=== PATIENT | female | born 1960 | race Caucasian/White ===

== ENCOUNTER → 2017-03-22 10:43 | Outpatient (CLI) | payer MEDICAID, SELFPAY ==
[2017-03-22 12:20] LABS: Anion Gap 6 (5-15); BUN 7 mg/dL (7-18); BUN/Creat Ratio 10.2 RATIO (10-20); Calcium,Total 8.8 mg/dL (8.5-10.1); Chloride 99 mmol/L (98-107); Creatinine, Serum 0.69 mg/dL (0.55-1.02); EST Glomerular Filtration Rate 94 mL/min (>60); Est Glom Filt Rate - Afr Amer 114 mL/min (>60); Glucose 79 mg/dL (70-110); Potassium 3.7 mmol/L (3.5-5.1); Sodium Level 135 mmol/L (136-145)
== END ==
PROVIDERS: Family Provider Family Medicine; PCP Family Medicine
DX: E87.1 Hypo-osmolality and hyponatremia (principal)
CPT/HCPCS: 36415; 80048

== ENCOUNTER → 2017-05-22 09:53 | Outpatient (CLI) | payer MEDICAID, SELFPAY ==
[2017-05-22 10:22] LABS: Erythrocyte Sedimentation Rate 7 mm/hr (0-30)
[2017-05-22 10:25] LABS: Absolute Lymphocyte Count 1.22 X10^3/ul (0.83-4.51); Absolute Neutrophil Count 5.7 X10^3/uL (2.0-7.7); Basophil# 0.03 X10^3/uL; Basophil% 0.4 % (0-1); Eosinophil# 0.01 X10^3/uL; Eosinophils% 0.1 % (0-5); Hematocrit 43.2 % (37-47); Hemoglobin 15.1 g/dl (12.0-15.0); Lymphocyte # 1.22 X10^3/ul (4.0); Lymphocyte % 16.2 % (19-41); Mean Corpuscular Hgb 30.6 pg (27.0-32.0); Mean Corpuscular Volume 87.4 fL (81-99); Mean Platelet Vol. 9.1 fl (6.2-12.0); Monocyte# 0.51 X10^3/uL; Monocyte% 6.8 % (0-10); Neutrophil # 5.72 X10^3/uL (2.7-7.7); Neutrophil % 76.2 % (47-70); Platelet Count 359 K/mm3 (150-450); RBC Distribution Width CV 13.8 % (11.6-14.6); RBC Distribution Width SD 43.8 fl (35.1-43.9); Red Blood Count 4.94 M/mm3 (4.2-5.4); White Blood Count 7.5 K/mm3 (4.4-11.0)
[2017-05-22 10:26] LABS: POSITIVE COUNT NO; POSITIVE DIFFERENTIAL NO; POSITIVE MORPHOLOGY NO
[2017-05-22 10:44] LABS: CRP < 2.90 mg/L (0.0-3.0)
[2017-05-23 10:39] LABS: Vitamin D,25 Hydroxy 20.5 ng/mL (29.95-100.01)
== END ==
PROVIDERS: Family Provider Family Medicine; PCP Family Medicine; Visit Provider Orthopaedic Surgery
DX: S42.351K Displaced comminuted fracture of shaft of humerus, right arm, subsequent encounter for fracture with nonunion (principal); X58.XXXD Exposure to other specified factors, subsequent encounter
CPT/HCPCS: 82306; 82330; 85025; 85652; 86140

== ENCOUNTER → 2017-07-15 13:42 | Outpatient (CLI) | payer MEDICAID, SELFPAY ==
[2017-07-16 10:50] LABS: Vitamin D,25 Hydroxy 41.5 ng/mL (29.95-100.01)
== END ==
PROVIDERS: Family Provider Family Medicine; PCP Family Medicine; Visit Provider Family Medicine
DX: E55.9 Vitamin D deficiency, unspecified (principal)
CPT/HCPCS: 36415; 82306

== ENCOUNTER 2017-08-10 21:00 | Emergency (ER) | payer MEDICAID, SELFPAY ==
[2017-08-10 21:02] VITALS: BP 160/108; PULSE 131; RESP 26; TEMP 37.1; O2SAT 95; BMI 36.2
[2017-08-10 21:08] VITALS: PULSE 126; RESP 22; O2SAT 92
[2017-08-10 21:50] LABS: Hematocrit 32.9 % (37-47); Hemoglobin 11.1 g/dl (12.0-15.0); Mean Corp Hgb Conc 33.7 g/gl (32-36); Mean Corpuscular Hgb 30.1 pg (27.0-32.0); Mean Corpuscular Volume 89.2 fL (81-99); Mean Platelet Vol. 8.4 fl (6.2-12.0); Platelet Count 384 K/mm3 (150-450); RBC Distribution Width CV 13.8 % (11.6-14.6); Red Blood Count 3.69 M/mm3 (4.2-5.4); White Blood Count 5.8 K/mm3 (4.4-11.0)
[2017-08-10 21:56] LABS: Scan Indicated on CBC? Y/N NO
[2017-08-10 22:02] LABS: Prothrombin Time (Protime)PT. 13.5 SECONDS (11.7-14.9)
--- NOTE | 2017-08-10 22:02 | ED.VISSUMM ---
- ER Visit Summary Date of Service: 08/10/17 Chief Complaint: [] Bloody stool History of Present Illness: The patient is a 57 F she stated her stool twice had small amount of blood in it. She has been drinking beers daily she is an alcoholic. She has a PICC line in her left arm is getting vancomycin for an infected right humerus wound from surgery. She had plate and screws done in July 16. He got infected. She does get a Hep-Lock through that at home and so she was asked to come in for further evaluation to rule out GI bleed. She has never had a GI bleed in the past. She has had intermittent loose bowel movements. No previous colonoscopy. No history of hemorrhoids. Physical Examination: Vital signs reviewed General: Well-nourished well-developed she appears intoxicated Head: Normocephalic atraumatic Eyes: Pupils equal round and reactive to light extraocular movements intact ENT: TMs clear no hemotympanum no trauma Neck: Nontender full range of motion Cardiovascular: Regular tachycardia with normal rhythm no murmurs normal S1-S2 Respiratory: No distress clear to auscultation bilaterally chest nontender Abdomen: Soft nontender nondistended normal bowel sounds no masses Stool guaiac: Rectal showed no tenderness. No blood. Guaiac sent. Back: Nontender no CVA tenderness Extremities: Nontender active range of motion ?4 extremities no trauma Skin: Shoulder wound clean dry intact. Mild seepage between 2 of the sutures that is chronic. It is serosanguineous. No evidence of infection. Left PICC clean dry intact. Neuro alert oriented cranial nerves II through XII intact normal strength sensation reflexes Test Results: [] Emergency Department Course and Treatment: [] Patient had one bowel movement in the department that showed no blood. There was some oranges color of her stool. Patient stated that might of been what she thought was blood. Lab work obtained and given fluids. Stool occult sent. Stool occult negative. Lab work shows CBC normal except hemoglobin 11.1. This is down from 15.1. But she had surgery between these lab draws I think it is likely not acute. Chemistries normal except potassium 3.4. INR and PTT are negative. Alcohol is 300. At this time the patient does not have an active bleed. Her guaiac negative. Nursing staff states she had soft stool that was orange in nature which I feel the patient likely metastatic for blood. I feel she can follow-up. She remains tachycardic but I think this is likely secondary to alcohol intoxication and likely dehydration. She will continue to drink fluids and try to refrain from alcohol. Heart rate 120 currently Treatment Plan: [] Disposition: [] Impression: [] Ported blood in stool not observed in the emergency department Alcoholism with acute alcohol intoxication This note was generated with [employer] dictation software. It may contain incorrect words, spelling, and punctuation that were not noted in review of the chart prior to signing ED Disposition - Plan for ED Patient: Chief Complaint: ETOH Intox Referrals: Mansoor Chavarria DO [Primary Care Provider] -
[2017-08-10 22:03] LABS: Partial Thromboplast Time 30.9 Seconds (24.1-36.2)
[2017-08-10 22:06] VITALS: BP 131/112; PULSE 119; RESP 16; O2SAT 97
[2017-08-10] MEDS: 0.9% Normal Saline 1,000 ML 1000 ML IV (22:06)
[2017-08-10 22:09] LABS: Anion Gap 11 (5-15); BUN 9 mg/dL (7-18); BUN/Creat Ratio 12.9 RATIO (10-20); Calcium,Total 8.6 mg/dL (8.5-10.1); Chloride 103 mmol/L (98-107); EST Glomerular Filtration Rate 92 mL/min (>60); Est Glom Filt Rate - Afr Amer 112 mL/min (>60); Estimated Creatinine Clearance 87.27 ml/min; Glucose 119 mg/dL (74-106); Potassium 3.4 mmol/L (3.5-5.1); Sodium Level 138 mmol/L (136-145)
[2017-08-10 22:54] VITALS: BP 140/96; PULSE 126; RESP 16; O2SAT 97
--- NOTE | 2017-08-10 23:10 | ED.DEP ---
ED Disposition - Plan for ED Patient: Disposition: Home or Assisted Living Chief Complaint: ETOH Intox Diagnosis: History of alcohol abuse Instructions: ED Alcohol Intoxication, ED Diarrhea Viral Referrals: Mansoor Chavarria DO [Primary Care Provider] -
[2017-08-10 23:21] VITALS: BP 133/86; PULSE 124; RESP 18; O2SAT 94
== END 2017-08-10 23:34 | disposition home or self-care (01) ==
PROVIDERS: Emergency Provider Emergency Medicine; Family Provider Family Medicine; PCP Family Medicine
DX: R19.5 Other fecal abnormalities (principal); F10.229 Alcohol dependence with intoxication, unspecified; Y90.8 Blood alcohol level of 240 mg/100 ml or more; E86.0 Dehydration; R19.7 Diarrhea, unspecified; K21.9 Gastro-esophageal reflux disease without esophagitis; F41.9 Anxiety disorder, unspecified; E66.9 Obesity, unspecified; Z79.899 Other long term (current) drug therapy
CPT/HCPCS: 80048; 80320; 82274; 85027; 85610; 85730; 96360; 99285; J7030; G0480

== ENCOUNTER 2017-08-11 21:07 | Emergency (ER) | payer MEDICAID, SELFPAY ==
[2017-08-11 21:08] VITALS: BP 145/94; PULSE 134; RESP 18; TEMP 36.4; O2SAT 95; BMI 32.8
--- NOTE | 2017-08-11 23:18 | ED.VISSUMM ---
- ER Visit Summary Date of Service: 08/11/17 Chief Complaint: Need antibiotics History of Present Illness: The patient is a 57 F with a right arm infection. She had a surgical site infection and is under the care of Dr. Ryan Siddiqui in [facility]. She had a PICC line and has been receiving vancomycin at home twice a day. She actually pulled the PICC line out this morning and has not had her morning or evening dose today. Her last dose was yesterday evening. She is here to get her evening dose. She denies any increasing pain, fevers, rash, or any other new symptoms. Physical Examination: Tachycardic at 134 but otherwise vitals unremarkable. Afebrile. Right upper extremity shows postoperative changes. There is some mild serosanguineous drainage but no evidence of bleeding, pus, erythema, or redness. Nontender. Left upper extremity unremarkable. PICC line is absent. Heart tachycardic but regular. Lungs clear. Head and neck atraumatic. Test Results: None performed Emergency Department Course and Treatment: We are unable to replace her PICC line this evening. We will place an IV and administer her evening dose of vancomycin. We did get her the number to call back in the morning. She should call the infusion center to have her doctor arrange for PICC line replacement. We gave her an alternate #2 the PICC line nurse, [place] if she has any issues. I also advised her to call her doctor in the morning to help coordinate her care. Patient's son arrived. He will help coordinate further care at home. Treatment Plan: As above Disposition: Discharged Impression: 1. Vancomycin infusion This note was generated with [employer] dictation software. It may contain incorrect words, spelling, and punctuation that were not noted in review of the chart prior to signing ED Disposition - Plan for ED Patient: Chief Complaint: Meds Only Referrals: Mansoor Chavarria DO [Primary Care Provider] -
[2017-08-11 23:20] VITALS: BP 138/84; PULSE 92; RESP 20; O2SAT 96; BMI 32.8
--- NOTE | 2017-08-11 23:57 | ED.DEP ---
ED Disposition - Plan for ED Patient: Chief Complaint: Meds Only Instructions: Peripherally Inserted Central Catheter (PICC) Referrals: Mansoor Chavarria DO [Primary Care Provider] - Additional Instructions: Follow-up as directed for PICC line replacement
--- NOTE | 2017-08-12 00:13 | ED.RN ---
PT AND PTS SON STATED THEY WOULD NOT LIKE NURSING STAFF TO USE IV PUMP TO ADMINISTER VANCOMYCIN IV. NURSING STAFF EXPLAINED IMPORTANCE AND POLICY ON IV PUMP USE FOR IV VANCOMYCIN, PT AND PTS SON STILL DECLINED IV PUMP USE. PT AND PT SON STATED WE FREE HANG THE VANCOMYCIN AT HOME, IT IS NOT NEEDED, BUT THANK YOU.
== END 2017-08-12 00:27 | disposition home or self-care (01) ==
LOC: ED 23:40
PROVIDERS: Emergency Provider Emergency Medicine; Family Provider Family Medicine; PCP Family Medicine
DX: T81.4XXD Infection following a procedure, subsequent encounter (principal); B99.9 Unspecified infectious disease; R00.0 Tachycardia, unspecified; I10 Essential (primary) hypertension; K21.9 Gastro-esophageal reflux disease without esophagitis; F32.9 Major depressive disorder, single episode, unspecified; F41.9 Anxiety disorder, unspecified; Z79.899 Other long term (current) drug therapy
CPT/HCPCS: 96365; 99282; J7040; A4216

== ENCOUNTER → 2017-11-18 15:24 | Outpatient (CLI) | payer MEDICAID, SELFPAY ==
[2017-11-18 18:01] LABS: Erythrocyte Sedimentation Rate 11 mm/hr (0-30)
[2017-11-18 18:11] LABS: ALB/GLOB Ratio 0.8 RATIO (0.9-2.4); AST(SGOT) 18 U/L (15-37); Alanine Aminotransfer ALT/SGPT 16 U/L (13-56); Albumin, Serum 2.8 g/dL (3.2-5.0); Alkaline Phosphatase 90 U/L (45-117); Anion Gap 8 (5-15); BUN 8 mg/dL (7-18); Calcium,Total 9.2 mg/dL (8.5-10.1); Chloride 101 mmol/L (98-107); Creatinine, Serum 0.73 mg/dL (0.55-1.02); EST Glomerular Filtration Rate 88 mL/min (>60); Est Glom Filt Rate - Afr Amer 106 mL/min (>60); Globulin 3.7 g/dL (2.2-4.2); Glucose 97 mg/dL (74-106); Potassium 3.8 mmol/L (3.5-5.1); Protein, Total 6.5 g/dL (6.4-8.2); Sodium Level 138 mmol/L (136-145)
== END ==
PROVIDERS: Family Provider Family Medicine; PCP Family Medicine
DX: B99.9 Unspecified infectious disease (principal); B95.7 Other staphylococcus as the cause of diseases classified elsewhere
CPT/HCPCS: 36415; 80053; 85652; 86140

== ENCOUNTER → 2018-01-08 09:35 | Outpatient (CLI) | payer MEDICAID, SELFPAY ==
[2018-01-07 10:09] VITALS: BMI 35.5
[2018-01-08 12:21] LABS: Erythrocyte Sedimentation Rate 9 mm/hr (0-30)
[2018-01-08 12:39] LABS: ALB/GLOB Ratio 0.8 RATIO (0.9-2.4); AST(SGOT) 24 U/L (15-37); Alanine Aminotransfer ALT/SGPT 28 U/L (13-56); Albumin, Serum 3.3 g/dL (3.2-5.0); Alkaline Phosphatase 85 U/L (45-117); Anion Gap 11 (5-15); BUN 15 mg/dL (7-18); BUN/Creat Ratio 18.7 RATIO (10-20); CRP 3.88 mg/L (0.0-3.0); Calcium,Total 9.6 mg/dL (8.5-10.1); Chloride 99 mmol/L (98-107); EST Glomerular Filtration Rate 78 mL/min (>60); Est Glom Filt Rate - Afr Amer 95 mL/min (>60); Globulin 3.9 g/dL (2.2-4.2); Glucose 109 mg/dL (74-106); Potassium 4.3 mmol/L (3.5-5.1); Protein, Total 7.2 g/dL (6.4-8.2); Sodium Level 138 mmol/L (136-145)
== END ==
PROVIDERS: Family Provider Family Medicine; PCP Family Medicine
DX: B99.9 Unspecified infectious disease (principal); B95.7 Other staphylococcus as the cause of diseases classified elsewhere
CPT/HCPCS: 36415; 80053; 85652; 86140

== ENCOUNTER 2018-03-29 05:30 | Inpatient (IN) | payer MEDICAID, SELFPAY ==
[2018-01-07 10:09] VITALS: BMI 35.5
[2018-03-29] VITALS (9 sets, daily range): BP systolic 121–172; BP diastolic 80–121; PULSE 82–121; RESP 14–20; TEMP 36.7–37.1; O2SAT 93–99; BMI 35.1
--- NOTE | 2018-03-29 05:48 | ED.VISSUMM ---
- ER Visit Summary Date of Service: 03/29/18 Chief Complaint: Requesting detox for alcoholism History of Present Illness: The patient is a 57 F history of alcohol abuse, hypertension and hypothyroidism. Patient states she has not had a drink for around 12+ hours. She feels like she is going through withdrawal. She is had nausea and vomiting. Diarrhea. She states she feels very anxious. She is hoping to be admitted to [facility] for detox. She has a long history of alcohol abuse. Physical Examination: Middle-aged female. No acute distress. Vital signs are stable with blood pressures elevated 172/121 and her heart rate 121. She does not look septic or toxic. HEENT exam unremarkable other than dry mucous membranes. Neck nontender. Lungs clear to auscultation bilaterally. Heart tachycardic rate about 120 no murmurs. Chest wall nontender. Abdomen soft and nontender. Normal bowel sounds no peritoneal signs. Obese. Extremities she is moving all 4. No deformity. Equal symmetrical performance reporter strength. Dorsi plantar flexion intact. No edema. Back nontender. Skin unremarkable. Neurologically she is awake and alert with no focal motor deficits. Test Results: CBC shows white count 7. Hemoglobin of 15. BMP shows anion gap is 16. Normal BUN and creatinine. Alcohol level equals 76. Emergency Department Course and Treatment: Repeat exam patient is doing well. She is ambulating about the room. She denied discussed treatment options she is very adamant that she would like to be admitted for detox. Treatment Plan: I spoke to the hospitalist and she will admit her to detox. Disposition: Admission Impression: Requesting detox for alcohol abuse History of alcoholism History of hypertension and hypothyroidism This note was generated with [employer] dictation software. It may contain incorrect words, spelling, and punctuation that were not noted in review of the chart prior to signing ED Disposition - Plan for ED Patient: Referrals: Mansoor Chavarria DO [Primary Care Provider] -
[2018-03-29] MEDS: 0.9% Normal Saline 1,000 ML 999 ML IV (05:55)
[2018-03-29 06:14] LABS: Hematocrit 45.4 % (37-47); Hemoglobin 15.2 g/dl (12.0-15.0); Mean Corp Hgb Conc 33.5 g/gl (32-36); Mean Corpuscular Hgb 27.9 pg (27.0-32.0); Mean Corpuscular Volume 83.3 fL (81-99); Mean Platelet Vol. 9.3 fl (6.2-12.0); Platelet Count 317 K/mm3 (150-450); RBC Distribution Width CV 15.8 % (11.6-14.6); RBC Distribution Width SD 47.5 fl (35.1-43.9); Red Blood Count 5.45 M/mm3 (4.2-5.4); Scan Indicated on CBC? Y/N NO
[2018-03-29 07:14] LABS: Anion Gap 16 (5-15); BUN 21 mg/dL (7-18); Chloride 100 mmol/L (98-107); Creatinine, Serum 0.81 mg/dL (0.55-1.02); EST Glomerular Filtration Rate 78 mL/min (>60); Est Glom Filt Rate - Afr Amer 94 mL/min (>60); Estimated Creatinine Clearance 75.42 ml/min; Glucose 120 mg/dL (74-106); Potassium 4.6 mmol/L (3.5-5.1); Sodium Level 137 mmol/L (136-145)
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
[2018-03-29] MEDS: Multivitamins,Therapeutic Tablet 1 TABLET PO (09:22)
[2018-03-29] MEDS: Levothyroxine 100 MCG Tablet 200 MCG PO (09:22)
[2018-03-29] MEDS: chlordiazePOXIDE 25 MG Capsule PO ×3 (09:22→21:20)
[2018-03-29] MEDS: Atenolol 25 MG Tablet PO ×2 (09:22→21:20)
[2018-03-29] MEDS: Ondansetron ODT 4 MG Tablet PO (09:22)
[2018-03-29] MEDS: Thiamine Hydrochloride 100 MG Tablet PO (09:23)
[2018-03-29] MEDS: Folic Acid 1 MG Tablet PO (09:23)
[2018-03-29] MEDS: Venlafaxine XR 150 MG Capsule PO (10:40)
[2018-03-29] MEDS: busPIRone 5 MG Tablet 10 MG PO ×2 (10:40→21:19)
[2018-03-29] MEDS: Loperamide 2 MG Capsule PO (10:45)
[2018-03-29] MEDS: 0.9% NaCl Peripheral Flush Adult/Peds IV (21:20)
[2018-03-30] VITALS (8 sets, daily range): BP systolic 99–138; BP diastolic 69–97; PULSE 68–76; RESP 16–18; TEMP 36.5–36.8; O2SAT 95–97
[2018-03-30] MEDS: chlordiazePOXIDE 25 MG Capsule PO ×3 (03:58→20:09)
[2018-03-30] MEDS: Levothyroxine 100 MCG Tablet 200 MCG PO (05:36)
[2018-03-30] MEDS: Folic Acid 1 MG Tablet PO (08:11)
[2018-03-30] MEDS: Thiamine Hydrochloride 100 MG Tablet PO (08:11)
[2018-03-30] MEDS: Atenolol 25 MG Tablet PO ×2 (08:11→21:14)
[2018-03-30] MEDS: busPIRone 5 MG Tablet 10 MG PO ×2 (08:11→21:14)
[2018-03-30] MEDS: Multivitamins,Therapeutic Tablet 1 TABLET PO (08:11)
[2018-03-30] MEDS: Venlafaxine XR 150 MG Capsule PO (08:11)
--- NOTE | 2018-03-30 11:21 | PCM.PN.HOSP ---
Patient Problems: Active and Suspected Problems (Last Reviewed 03/29/18 @ 13:33 by Judith Ayala DO) Alcohol withdrawal (Acute) Subjective: Doing well, denies any tremors or hallucinations at the moment. She says last time she went through withdrawal was 2 years ago. She states that she is currently in 180 and is getting help for her mental health. She states that she has been struggling because of having a history of cardiac stents that she is survive all the people have in when she was 6 and 19 years old. She also states that when her son was 12 about 13 years ago he accidentally shot and killed a friend of his. Also her son just 6 months ago. She has been dealing with a lot and is currently going to be undergoing dialectical behavioral therapy to help with her mental health. Vitals/I&O's: Vital Signs Temp Pulse Resp BP Pulse Ox 97.9 F 68 18 100/84 H 95 03/30/18 08:13 03/30/18 08:13 03/30/18 08:13 03/30/18 08:13 03/30/18 05:41 Oxygen Delivery Method Room Air Weight: 224 lb 3.362 oz Body Mass Index (BMI) 35.1 Intake and Output for Last 24 Hours 03/28/18 03/29/18 03/30/18 23:59 23:59 23:59 Intake Total 1300 / 1300 950 / 950 Balance 1300 / 1300 950 / 950 General: Alert, Oriented x3, Cooperative, No apparent distress HEENT: Atraumatic, PERRLA, EOMI, Normocephalic Oral: Moist Mucosa Neck: Supple, No JVD, Trachea Midline Lungs: Clear to auscultation, Normal air movement, No rhonchi, No wheeze, No rales Cardiovascular: Regular rate, Regular Rhythm, Normal S1, Normal S2, No murmurs Abdomen: Soft, Non Tender, Non-Distended, No Hepato-splenomegaly Extremities: No edema, Capillary Refill Less than 3 Seconds Skin: No rashes, No breakdown Neurological: Neuro grossly intact, Sensory exam intact to light touch and pain Psych/Mental Status: Normal Affect, Appropriate Current Medications Atenolol (Tenormin (Beta Jayshree)) 25 mg PO BID [facility] Last Admin: 03/30/18 08:11 Dose: 25 mg Bisacodyl (Dulcolax) 10 mg RECTAL DAILY PRN PRN Reason: Constipation Buspirone HCl (Buspar) 10 mg PO BID [facility] Last Admin: 03/30/18 08:11 Dose: 10 mg Chlordiazepoxide (Librium) 50 mg PO Q8H [facility]; Taper Stop: 04/01/18 11:59 Last Admin: 03/30/18 03:58 Dose: 50 mg [facility]ole[facility]ifer[facility] ([facility]) [facility] Last Admin: 03/30/18 08:11 Dose: 2,000 unit Dicyclomine HCl (Bentyl) 20 mg PO Q6H PRN PRN PRN Reason: abdominal discomfort [facility] ([facility]) [facility] Last Admin: 03/30/18 08:11 Dose: 1 mg Ibuprofen (Motrin) 600 mg PO Q8H PRN PRN PRN Reason: Mild-Moderate Pain (1-5/10) Levothyroxine Sodium (Synthroid) 200 mcg PO DAILY@0600 [facility] Last Admin: 03/30/18 05:36 Dose: 200 mcg Loperamide HCl (Imodium) 2 - 4 mg PO UD PRN PRN Reason: LOOSE STOOLS Last Admin: 03/29/18 10:45 Dose: 4 mg Multivitamins (Multivitamin) 1 tablet PO DAILY@0800 [facility] Last Admin: 03/30/18 08:11 Dose: 1 tablet Ondansetron HCl (Zofran Odt) 4 mg PO Q6H PRN PRN PRN Reason: NAUSEA Last Admin: 03/29/18 09:22 Dose: 4 mg Senna (Senokot) 1 tablet PO QHS PRN PRN Reason: Constipation Sodium Chloride () 5 - 15 ml IV UD PRN PRN Reason: SALINE FLUSH Last Admin: 03/29/18 21:20 Dose: 10 ml Thiamine HCl ([facility]itamin B1) [facility] Last Admin: 03/30/18 08:11 Dose: 100 mg Venlafaxine HCl (Effexor Xr) 150 mg PO DAILY [facility] Last Admin: 03/30/18 08:11 Dose: 150 mg Medical Necessity - Tobacco Use Smoking Status: Never smoker Tobacco Use: Non-smoker Assessment/Plan All Active Problems (Last Reviewed 03/29/18 @ 13:33 by Judith Ayala DO) Alcohol withdrawal (Acute) Hyponatremia (Resolved) 1. Acute alcohol withdrawal/alcohol dependence/anxiety/depression -She is not on any medications for seizure disorder which was likely secondary to alcohol withdrawal in the past -We will continue with the [facility] protocol and on discharge will be sent back to 180 -Discussed with her the necessity of improving her mental health prior to being able to stop drinking -She is on Effexor as well as BuSpar, can add Wellbutrin while here or on discharge if she wants it to help. -She will undergo DBT as an outpatient per 1 of her counselors 2. Hypothyroidism -Stable -Continue with home medications DVT: Ambulate Code Visit Inpatient E&M: 31728 Subs Hosp L2
--- NOTE | 2018-03-30 11:24 | PN_ITS ---
Patient Problems: Active and Suspected Problems (Last Reviewed 03/29/18 @ 13:33 by Judith Ayala DO) Alcohol withdrawal (Acute) Subjective: Doing well, denies any tremors or hallucinations at the moment. She says last time she went through withdrawal was 2 years ago. She states that she is currently in 180 and is getting help for her mental health. She states that she has been struggling because of having a history of cardiac stents that she is survive all the people have in when she was 6 and 19 years old. She also states that when her son was 12 about 13 years ago he accidentally shot and killed a friend of his. Also her son just 6 months ago. She has been dealing with a lot and is currently going to be undergoing dialectical behavioral therapy to help with her mental health. Vitals/I&O's: Vital Signs Temp Pulse Resp BP Pulse Ox 97.9 F 68 18 100/84 H 95 03/30/18 08:13 03/30/18 08:13 03/30/18 08:13 03/30/18 08:13 03/30/18 05:41 Oxygen Delivery Method Room Air Weight: 224 lb 3.362 oz Body Mass Index (BMI) 35.1 Intake and Output for Last 24 Hours 03/28/18 03/29/18 03/30/18 23:59 23:59 23:59 Intake Total 1300 / 1300 950 / 950 Balance 1300 / 1300 950 / 950 General: Alert, Oriented x3, Cooperative, No apparent distress HEENT: Atraumatic, PERRLA, EOMI, Normocephalic Oral: Moist Mucosa Neck: Supple, No JVD, Trachea Midline Lungs: Clear to auscultation, Normal air movement, No rhonchi, No wheeze, No rales Cardiovascular: Regular rate, Regular Rhythm, Normal S1, Normal S2, No murmurs Abdomen: Soft, Non Tender, Non-Distended, No Hepato-splenomegaly Extremities: No edema, Capillary Refill Less than 3 Seconds Skin: No rashes, No breakdown Neurological: Neuro grossly intact, Sensory exam intact to light touch and pain Psych/Mental Status: Normal Affect, Appropriate Current Medications Atenolol (Tenormin (Beta Jayshree)) 25 mg PO BID [facility] Last Admin: 03/30/18 08:11 Dose: 25 mg Bisacodyl (Dulcolax) 10 mg RECTAL DAILY PRN PRN Reason: Constipation Buspirone HCl (Buspar) 10 mg PO BID [facility] Last Admin: 03/30/18 08:11 Dose: 10 mg Chlordiazepoxide (Librium) 50 mg PO Q8H [facility]; Taper Stop: 04/01/18 11:59 Last Admin: 03/30/18 03:58 Dose: 50 mg Cholecalciferol (Vitamin D) [facility] Last Admin: 03/30/18 08:11 Dose: 2,000 unit Dicyclomine HCl (Bentyl) 20 mg PO Q6H PRN PRN PRN Reason: abdominal discomfort Folic Acid (Folic Acid) [facility] Last Admin: 03/30/18 08:11 Dose: 1 mg Ibuprofen (Motrin) 600 mg PO Q8H PRN PRN PRN Reason: Mild-Moderate Pain (1-5/10) Levothyroxine Sodium (Synthroid) 200 mcg PO DAILY@0600 [facility] Last Admin: 03/30/18 05:36 Dose: 200 mcg Loperamide HCl (Imodium) 2 - 4 mg PO UD PRN PRN Reason: LOOSE STOOLS Last Admin: 03/29/18 10:45 Dose: 4 mg Multivitamins (Multivitamin) 1 tablet PO DAILY@0800 [facility] Last Admin: 03/30/18 08:11 Dose: 1 tablet Ondansetron HCl (Zofran Odt) 4 mg PO Q6H PRN PRN PRN Reason: NAUSEA Last Admin: 03/29/18 09:22 Dose: 4 mg Senna (Senokot) 1 tablet PO QHS PRN PRN Reason: Constipation Sodium Chloride () 5 - 15 ml IV UD PRN PRN Reason: SALINE FLUSH Last Admin: 03/29/18 21:20 Dose: 10 ml Thiamine HCl (Vitamin B1) [facility] Last Admin: 03/30/18 08:11 Dose: 100 mg Venlafaxine HCl (Effexor Xr) 150 mg PO DAILY [facility] Last Admin: 03/30/18 08:11 Dose: 150 mg Medical Necessity - Tobacco Use Smoking Status: Never smoker Tobacco Use: Non-smoker Assessment/Plan All Active Problems (Last Reviewed 03/29/18 @ 13:33 by Judith Ayala DO) Alcohol withdrawal (Acute) Hyponatremia (Resolved) 1. Acute alcohol withdrawal/alcohol dependence/anxiety/depression -She is not on any medications for seizure disorder which was likely secondary to alcohol withdrawal in the past -We will continue with the [facility] protocol and on discharge will be sent back to [facility] -Discussed with her the necessity of improving her mental health prior to being able to stop drinking -She is on Effexor as well as BuSpar, can add Wellbutrin while here or on discharge if she wants it to help. -She will undergo DBT as an outpatient per 1 of her counselors 2. Hypothyroidism -Stable -Continue with home medications DVT: Ambulate Code Visit Inpatient E&M: 86554 Subs Hosp L2
--- NOTE | 2018-03-30 15:57 | CHAPLAIN ---
Type of Pastoral Visit _x__ Initial Visit ___ Follow-up Visit ___ On-call Visit ___ General Patient Visit ___ Spiritual Assessment ___ Family Conference ___ Bereavement ___ Rapid Response ___ Code Blue ___ Other (describe below) Pastoral Care Referral From _x__ Patient ___ Family ___ Nurse ___ Physician ___ Draw Fire Operator ___ Retail Center Receptionist ___ Other (describe below) Sacrament/Intervention _x__ Active listening ___ Anointing ___ Church _x__ Bereavement ___ Communion _x__ Shara exploration ___ _x__ Life review _x__ Prayer ___ Reconciliation ___ Sacrament of Sick _x__ Supportive presence ___ Wedding ___ Other (describe below) Pastoral Comments patient has spiritual questions about her son and his by overdose; pt is dealing with grief and life after issues; pt is asking for any resources about grief support although she has already explored many avenues
[2018-03-31] MEDS: chlordiazePOXIDE 25 MG Capsule PO ×2 (04:06→12:23)
[2018-03-31 04:10] VITALS: BP 130/85; PULSE 74; RESP 16; TEMP 36.4
[2018-03-31] MEDS: Levothyroxine 100 MCG Tablet 200 MCG PO (05:45)
[2018-03-31 10:00] VITALS: BP 116/80; PULSE 76; RESP 16; TEMP 36.5
[2018-03-31] MEDS: Multivitamins,Therapeutic Tablet 1 TABLET PO (10:49)
[2018-03-31] MEDS: busPIRone 5 MG Tablet 10 MG PO ×2 (10:49→22:01)
[2018-03-31] MEDS: Folic Acid 1 MG Tablet PO (10:49)
[2018-03-31] MEDS: Atenolol 25 MG Tablet PO ×2 (10:50→22:01)
[2018-03-31] MEDS: Venlafaxine XR 150 MG Capsule PO (10:50)
[2018-03-31] MEDS: Thiamine Hydrochloride 100 MG Tablet PO (10:50)
--- NOTE | 2018-03-31 10:53 | PCM.PN.HOSP ---
Patient Problems: Active and Suspected Problems (Last Reviewed 03/29/18 @ 13:33 by Judith Ayala DO) Alcohol withdrawal (Acute) Subjective: Doing well, no tremors or anxiety. Vitals/I&O's: Vital Signs Temp Pulse Resp BP Pulse Ox 97.6 F L 74 16 130/85 H 96 03/31/18 04:10 03/31/18 04:10 03/31/18 04:10 03/31/18 04:10 03/30/18 20:15 Oxygen Delivery Method Room Air Weight: 224 lb 3.362 oz Body Mass Index (BMI) 35.1 Intake and Output for Last 24 Hours 03/29/18 03/30/18 03/31/18 23:59 23:59 23:59 Intake Total 1300 / 1300 3650 / 3650 900 / 900 Balance 1300 / 1300 3650 / 3650 900 / 900 General: Alert, Oriented x3, Cooperative, No apparent distress HEENT: Atraumatic, PERRLA, EOMI, Normocephalic Oral: Moist Mucosa Neck: Supple, No JVD, Trachea Midline Lungs: Clear to auscultation, Normal air movement, No rhonchi, No wheeze, No rales Cardiovascular: Regular rate, Regular Rhythm, Normal S1, Normal S2, No murmurs Abdomen: Soft, Non Tender, Non-Distended, No Hepato-splenomegaly Extremities: No edema, Capillary Refill Less than 3 Seconds Skin: No rashes, No breakdown Neurological: Neuro grossly intact, Sensory exam intact to light touch and pain Psych/Mental Status: Normal Affect, Appropriate Current Medications Atenolol (Tenormin (Beta Jayshree)) 25 mg PO BID [facility] Last Admin: 03/31/18 10:50 Dose: 25 mg Bisacodyl (Dulcolax) 10 mg RECTAL DAILY PRN PRN Reason: Constipation Buspirone HCl (Buspar) 10 mg PO BID [facility] Last Admin: 03/31/18 10:49 Dose: 10 mg Chlordiazepoxide (Librium) 50 mg PO Q8H [facility]; Taper Stop: 04/01/18 11:59 Last Admin: 03/31/18 04:06 Dose: 50 mg [facility]olecalcifer[facility] ([facility]itamin [facility]) [facility] Last Admin: 03/31/18 10:49 Dose: 2,000 unit Dicyclomine HCl (Bentyl) 20 mg PO Q6H PRN PRN PRN Reason: abdominal discomfort Folic Acid (F[facility] Acid) [facility] Last Admin: 03/31/18 10:49 Dose: 1 mg Ibuprofen (Motrin) 600 mg PO Q8H PRN PRN PRN Reason: Mild-Moderate Pain (1-5/10) Levothyroxine Sodium (Synthroid) 200 mcg PO DAILY@0600 [facility] Last Admin: 03/31/18 05:45 Dose: 200 mcg Loperamide HCl (Imodium) 2 - 4 mg PO UD PRN PRN Reason: LOOSE STOOLS Last Admin: 03/29/18 10:45 Dose: 4 mg Multivitamins (Multivitamin) 1 tablet PO DAILY@0800 [facility] Last Admin: 03/31/18 10:49 Dose: 1 tablet Non-Formulary Medication (Levothyroxine Sodium [Synthroid]) 200 mcg PO QDAY [facility] Ondansetron HCl (Zofran Odt) 4 mg PO Q6H PRN PRN PRN Reason: NAUSEA Last Admin: 03/29/18 09:22 Dose: 4 mg Senna (Senokot) 1 tablet PO QHS PRN PRN Reason: Constipation Sodium Chloride () 5 - 15 ml IV UD PRN PRN Reason: SALINE FLUSH Last Admin: 03/29/18 21:20 Dose: 10 ml Thiamine HCl (Vitamin B1) [facility] Last Admin: 03/31/18 10:50 Dose: 100 mg Venlafaxine HCl (Effexor Xr) 150 mg PO DAILY [facility] Last Admin: 03/31/18 10:50 Dose: 150 mg Medical Necessity - Tobacco Use Smoking Status: Never smoker Tobacco Use: Non-smoker Assessment/Plan All Active Problems (Last Reviewed 03/29/18 @ 13:33 by Judith Ayala DO) Alcohol withdrawal (Acute) Hyponatremia (Resolved) 1. Acute alcohol withdrawal/alcohol dependence/anxiety/depression -She is not on any medications for seizure disorder which was likely secondary to alcohol withdrawal in the past -We will continue with the [facility] protocol and on discharge will be sent back to 180 -Discussed with her the necessity of improving her mental health prior to being able to stop drinking -She is on Effexor as well as BuSpar, will start her on Wellbutrin 75 mg twice daily to help with her feelings of anxiety and depression. -She will undergo DBT as an outpatient per 1 of her counselors 2. Hypothyroidism -Stable -Continue with home medications DVT: Ambulate Code Visit Inpatient E&M: 26569 Subs Hosp L2
--- NOTE | 2018-03-31 10:57 | PN_ITS ---
Patient Problems: Active and Suspected Problems (Last Reviewed 03/29/18 @ 13:33 by Judith Ayala DO) Alcohol withdrawal (Acute) Subjective: Doing well, no tremors or anxiety. Vitals/I&O's: Vital Signs Temp Pulse Resp BP Pulse Ox 97.6 F L 74 16 130/85 H 96 03/31/18 04:10 03/31/18 04:10 03/31/18 04:10 03/31/18 04:10 03/30/18 20:15 Oxygen Delivery Method Room Air Weight: 224 lb 3.362 oz Body Mass Index (BMI) 35.1 Intake and Output for Last 24 Hours 03/29/18 03/30/18 03/31/18 23:59 23:59 23:59 Intake Total 1300 / 1300 3650 / 3650 900 / 900 Balance 1300 / 1300 3650 / 3650 900 / 900 General: Alert, Oriented x3, Cooperative, No apparent distress HEENT: Atraumatic, PERRLA, EOMI, Normocephalic Oral: Moist Mucosa Neck: Supple, No JVD, Trachea Midline Lungs: Clear to auscultation, Normal air movement, No rhonchi, No wheeze, No rales Cardiovascular: Regular rate, Regular Rhythm, Normal S1, Normal S2, No murmurs Abdomen: Soft, Non Tender, Non-Distended, No Hepato-splenomegaly Extremities: No edema, Capillary Refill Less than 3 Seconds Skin: No rashes, No breakdown Neurological: Neuro grossly intact, Sensory exam intact to light touch and pain Psych/Mental Status: Normal Affect, Appropriate Current Medications Atenolol (Tenormin (Beta Jayshree)) 25 mg PO BID [facility] Last Admin: 03/31/18 10:50 Dose: 25 mg Bisacodyl (Dulcolax) 10 mg RECTAL DAILY PRN PRN Reason: Constipation Buspirone HCl (Buspar) 10 mg PO BID [facility] Last Admin: 03/31/18 10:49 Dose: 10 mg Chlordiazepoxide (Librium) 50 mg PO Q8H [facility]; Taper Stop: 04/01/18 11:59 Last Admin: 03/31/18 04:06 Dose: 50 mg Cholecalciferol (Vitamin D) [facility] Last Admin: 03/31/18 10:49 Dose: 2,000 unit Dicyclomine HCl (Bentyl) 20 mg PO Q6H PRN PRN PRN Reason: abdominal discomfort Folic Acid (Folic Acid) [facility] Last Admin: 03/31/18 10:49 Dose: 1 mg Ibuprofen (Motrin) 600 mg PO Q8H PRN PRN PRN Reason: Mild-Moderate Pain (1-5/10) Levothyroxine Sodium (Synthroid) 200 mcg PO DAILY@0600 [facility] Last Admin: 03/31/18 05:45 Dose: 200 mcg Loperamide HCl (Imodium) 2 - 4 mg PO UD PRN PRN Reason: LOOSE STOOLS Last Admin: 03/29/18 10:45 Dose: 4 mg Multivitamins (Multivitamin) 1 tablet PO DAILY@0800 [facility] Last Admin: 03/31/18 10:49 Dose: 1 tablet Non-Formulary Medication (Levothyroxine Sodium [Synthroid]) 200 mcg PO QDAY [facility] Ondansetron HCl (Zofran Odt) 4 mg PO Q6H PRN PRN PRN Reason: NAUSEA Last Admin: 03/29/18 09:22 Dose: 4 mg Senna (Senokot) 1 tablet PO QHS PRN PRN Reason: Constipation Sodium Chloride () 5 - 15 ml IV UD PRN PRN Reason: SALINE FLUSH Last Admin: 03/29/18 21:20 Dose: 10 ml Thiamine HCl (Vitamin B1) [facility] Last Admin: 03/31/18 10:50 Dose: 100 mg Venlafaxine HCl (Effexor Xr) 150 mg PO DAILY [facility] Last Admin: 03/31/18 10:50 Dose: 150 mg Medical Necessity - Tobacco Use Smoking Status: Never smoker Tobacco Use: Non-smoker Assessment/Plan All Active Problems (Last Reviewed 03/29/18 @ 13:33 by Judith Ayala DO) Alcohol withdrawal (Acute) Hyponatremia (Resolved) 1. Acute alcohol withdrawal/alcohol dependence/anxiety/depression -She is not on any medications for seizure disorder which was likely secondary to alcohol withdrawal in the past -We will continue with the [facility] protocol and on discharge will be sent back to 180 -Discussed with her the necessity of improving her mental health prior to being able to stop drinking -She is on Effexor as well as BuSpar, will start her on Wellbutrin 75 mg twice daily to help with her feelings of anxiety and depression. -She will undergo DBT as an outpatient per 1 of her counselors 2. Hypothyroidism -Stable -Continue with home medications DVT: Ambulate Code Visit Inpatient E&M: 42483 Subs Hosp L2
[2018-03-31] MEDS: buPROPion 75 MG Tablet PO ×2 (13:47→22:01)
[2018-03-31 14:00] VITALS: BP 118/84; PULSE 73; RESP 16; TEMP 37
[2018-03-31 18:00] VITALS: BP 122/85; PULSE 74; RESP 16; TEMP 36.7; O2SAT 96
[2018-03-31 21:55] VITALS: BP 144/95; PULSE 89; RESP 16; TEMP 36.7
[2018-03-31] MEDS: 0.9% NaCl Peripheral Flush Adult/Peds IV (22:01)
[2018-04-01] MEDS: chlordiazePOXIDE 25 MG Capsule PO (00:09)
[2018-04-01 06:05] VITALS: BP 124/81; PULSE 80; RESP 16; TEMP 36.6
[2018-04-01] MEDS: Levothyroxine 100 MCG Tablet 200 MCG PO (06:08)
[2018-04-01] MEDS: Multivitamins,Therapeutic Tablet 1 TABLET PO (08:06)
[2018-04-01] MEDS: Thiamine Hydrochloride 100 MG Tablet PO (08:06)
[2018-04-01] MEDS: Folic Acid 1 MG Tablet PO (08:06)
[2018-04-01] MEDS: busPIRone 5 MG Tablet 10 MG PO (08:07)
[2018-04-01] MEDS: Venlafaxine XR 150 MG Capsule PO (08:07)
[2018-04-01] MEDS: buPROPion 75 MG Tablet PO (08:08)
[2018-04-01] MEDS: Atenolol 25 MG Tablet PO (08:08)
--- NOTE | 2018-04-01 09:30 | DCINST_ITS ---
- Discharge Diagnoses Current Active Problems: Current Active and Chronic Problems (Last Reviewed 03/29/18 @ 13:33 by Judith Ayala DO) Alcohol withdrawal (Acute) You will use the following diet at home:: No restrictions, Regular Your food should be the consistency of: Regular Your liquids should be the consistency of: Regular/Thin Discharge Activity: Return to Normal Activity Call your doctor if you observe: Fever of 101 or Higher, Shortness of breath, Dizziness, Fainting spells, Increased palpitations (irregular heartbeat) Allergies/Adverse Reactions: Allergies Penicillins Allergy (Verified 08/11/17 21:10) Hives Medications to take at Discharge busPIRone [Buspar] 10 mg PO BID 06/07/16 multivitamin capsule 1 cap PO QAM 06/12/17 Atenolol 25 mg PO BID 03/29/18 Cholecalciferol (Vitamin D3) [Vitamin D3] 2,000 unit PO DAILY 03/29/18 Doxycycline [Vibramycin] 100 mg PO DAILY 03/29/18 Levothyroxine Sodium [Synthroid] 200 mcg PO QDAY 03/29/18 Venlafaxine XR [Effexor Xr] 150 mg PO DAILY 03/29/18 buPROPion tablets [Wellbutrin tablets] 75 mg PO BID #60 tablet 04/01/18 The following prescriptions were given: buPROPion tablets [Wellbutrin tablets] 75 mg PO BID #60 tablet Primary Care Physician: Mansoor Chavarria DO [Primary Care Provider] - Please follow up with your Primary Care Physician in: 3-5 days Test Results: Test results from this visit will be discussed in further detail at your follow- up appointment, if applicable.
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
[2018-04-01 10:00] VITALS: BP 116/80; PULSE 75; RESP 16; TEMP 36.6
--- NOTE | 2018-04-01 13:23 | CHAPLAIN ---
Type of Pastoral Visit ___ Initial Visit _x__ Follow-up Visit ___ On-call Visit ___ General Patient Visit ___ Spiritual Assessment ___ Family Conference ___ Bereavement ___ Rapid Response ___ Code Blue ___ Other (describe below) Pastoral Care Referral From _x__ Patient ___ Family ___ Nurse ___ Physician ___ Camp Assistant ___ Production Material Coordinator ___ Other (describe below) Sacrament/Intervention _x__ Active listening ___ Anointing ___ Latter-Day ___ Bereavement ___ Communion _x__ Shara exploration ___ _x__ Life review _x__ Prayer ___ Reconciliation ___ Sacrament of Sick _x__ Supportive presence ___ Wedding ___ Other (describe below) Pastoral Comments
[2018-04-01 14:00] VITALS: BP 115/76; PULSE 76; RESP 16; TEMP 36.4
== END 2018-04-01 14:55 | disposition home or self-care (01) | DRG 775 ==
LOC: ED 05:49 → MS3 07:58
PROVIDERS: Admitting Provider Internal Medicine; Emergency Provider Emergency Medicine; Family Provider Family Medicine; PCP Family Medicine; Visit Provider Family Medicine
DX: F10.239 Alcohol dependence with withdrawal, unspecified (principal); E03.9 Hypothyroidism, unspecified; E55.9 Vitamin D deficiency, unspecified; K21.9 Gastro-esophageal reflux disease without esophagitis; E66.9 Obesity, unspecified; Z68.35 Body mass index [BMI] 35.0-35.9, adult; F41.9 Anxiety disorder, unspecified; I10 Essential (primary) hypertension; F32.9 Major depressive disorder, single episode, unspecified; G40.909 Epilepsy, unspecified, not intractable, without status epilepticus; Y90.3 Blood alcohol level of 60-79 mg/100 ml
CPT/HCPCS: 80048; 80320; 85027; 99282; J7030; A4216; G0480

== ENCOUNTER 2018-06-26 06:55 | Day surgery (SDC) | payer MEDICAID, SELFPAY ==
[2018-05-07 13:05] VITALS: BMI 35.1
[2018-06-26 07:17] VITALS: BP 117/94; PULSE 67; RESP 16; TEMP 37.3; O2SAT 100; BMI 36.6
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
--- NOTE | 2018-06-26 08:39 | OP.ENDO_ITS ---
06/26/2018 Mansoor Chavarria Re : Colonoscopy procedure for Marva Fu Dear Dr. Chavarria This procedure was performed on Tuesday, June 26, 2018. My impressions and recommendations are as follows: Impressions : - The entire examined colon is normal on direct and retroflexion views. - No specimens collected. Recommendations : - Discharge patient to home. - Resume previous diet. - Continue present medications. - Repeat colonoscopy in 10 years for screening purposes. My findings are described in the full procedure note, which is enclosed. If I can be of further assistance, please feel free to contact me at Doctor phone number(s): , Work: . Sincerely, Montrell Marrufo MD 06/26/2018 8:38:45 AM This report has been signed electronically.
[2018-06-26 08:40] VITALS: BP 117/94; BP 97/68; PULSE 79; RESP 16; TEMP 36.6; O2SAT 94
[2018-06-26 08:45] VITALS: BP 105/71; BP 117/94; PULSE 76; RESP 16; O2SAT 93
[2018-06-26 08:50] VITALS: BP 105/81; BP 117/94; PULSE 76; RESP 16; O2SAT 98
[2018-06-26 08:55] VITALS: BP 117/94; PULSE 72; RESP 18; TEMP 37.1; O2SAT 96
[2018-06-26 09:17] VITALS: BP 117/94
== END 2018-06-26 09:22 | disposition home or self-care (01) ==
LOC: EN 06:56 → AC 06:57
PROVIDERS: Family Provider Family Medicine; PCP Family Medicine; Referring Provider Surgery; Visit Provider Surgery
PROC: 0DJD8ZZ Inspection of Lower Intestinal Tract, Via Natural or Artificial Opening Endoscopic (ICD-10-PCS; CPT 45378; principal; 2018-06-26 07:55)
DX: Z12.11 Encounter for screening for malignant neoplasm of colon (principal); I10 Essential (primary) hypertension; E07.9 Disorder of thyroid, unspecified; F32.9 Major depressive disorder, single episode, unspecified; F41.9 Anxiety disorder, unspecified; Z79.899 Other long term (current) drug therapy; Z78.0 Asymptomatic menopausal state; Z90.710 Acquired absence of both cervix and uterus
CPT/HCPCS: 45378; J7120

== ENCOUNTER → 2018-07-17 08:59 | Outpatient (CLI) | payer MEDICAID, SELFPAY ==
[2018-05-07 13:05] VITALS: BMI 35.1
[2018-06-26 07:17] VITALS: BMI 36.6
--- NOTE | 2018-07-17 09:54 | BI_ITS ---
MAMMOGRAPHY - BILATERAL SCREENING REASON FOR EXAM: Female, 58 years old. Routine annual screening examination. PERTINENT HISTORY: Aunt with breast cancer. Remote right excisional breast biopsy. TECHNIQUE: Digital bilateral breast mary (3D mammographic acquisition) in the CC and MLO projections. 2-D mediolateral oblique (MLO) and craniocaudad (CC) views of both breasts were obtained. CAD: Full Field Digital Mammography with Computer Added Detection was performed. COMPARISON: Comparison is made with prior study dated June 06, 2015 and May 25, 2014. FINDINGS: Breast Composition: There are scattered areas of fibroglandular density. There are no dominant masses or suspicious calcifications. Stable calcified linear density in the retroareolar region of the right breast. No other significant abnormalities are identified. There has been no significant change since the prior study. BI/SCREEN MAMM (CAD) W/MARY BILAT IMPRESSION: Stable bilateral screening mammogram. Yearly follow-up mammogram recommended. (A) ASSESSMENT CATEGORY: BIRADS Category 2: Benign. A letter regarding these results will be sent to the patient by the facility within 30 days. Approximately 10% of breast cancers are not detected by mammography. A normal mammogram should not delay biopsy of a clinically suspicious abnormality. [id number] Electronically Signed: Edilberto Wright, at 11:04 EDT , Service support ,
== END ==
PROVIDERS: Family Provider Family Medicine; PCP Family Medicine; Referring Provider Family Medicine; Visit Provider Family Medicine
DX: Z12.31 Encounter for screening mammogram for malignant neoplasm of breast (principal); Z80.3 Family history of malignant neoplasm of breast
CPT/HCPCS: 77063; 77067

== ENCOUNTER 2018-12-28 09:00 | Outpatient (RCR) | payer MEDICAID, SELFPAY ==
[2018-12-23 14:23] VITALS: BMI 39.7
--- NOTE | 2018-12-28 09:06 | BH.SGPN.GN ---
Behaviors/Verbalizations/Mental Status: [Client alert and oriented, casual dress, hygiene tended to. Eye contact good. Motor activity appropriate. Speech within normal limits. Affect congruent, mood depressed. Thoughts linear, logical, no signs of hallucinations or delusions. Reviewed client?s symptom tracker, no signs of suicidal ideation, plan, or intent as of today.?] Client Response/Progress/Benefit: [Pt receptive of session, actively listening throughout. Pt appearing nervous, as this was her first day in IOP treatment and she was still adjusting to group environment. She did well to identify current mental health wins and indicated these were taking the step to recognize her current means of coping are negatively impacting her mental health and took the initiative to ask for help. Additional win described as making it ?5 days without using old habits?. She appeared to benefit from supportive and structured environment. Pt identified current stressors as being unemployed and not having a strong foundation of coping mechanisms. She did well to reframe her thoughts and noted that she is looking forward to begin ?feeling feelings again? and learning how to better cope. Pt recommended continued IOP treatment to maintain safety, reduce mental health symptoms, and promote healthy copping behaviors.] Narrative Note: []
--- NOTE | 2018-12-28 10:20 | BH.SGPN.GN ---
Behaviors/Verbalizations/Mental Status: []Client alert and oriented, neatly dressed and groomed. Eye contact good. Motor activity appropriate. Speech within normal limits. Affect flat-tearful at times, mood depressed. Thoughts linear, logical, no signs of hallucinations or delusions. Client Response/Progress/Benefit: []Client was an active participant in group discussion and activity. Attentive during psychoeducation and commenting on the quote. Client shared people justify why they do not need change. Client stated change came for her once she realized ?I could if I keep doing this.? Worked with the group to identify benefits to making changes in our lives which included: improving one?s mental health, increasing confidence, breaking out of one?s comfort zone, and reducing unhealthy coping skills. Group then identified barriers to change or what keeps us from making changes which included: it is easier to not change, lack of trust, lack of resources, lack of courage to change, lack follow through, negative thinking, and fear. Client participated along with group in activity where they identified and discussed the emotions related to change. Client was attentive during psychoeducation on the change process. Benefited from increased awareness and understating of emotions, benefits, and barriers related to change. Client?s first day in IOP. Will continue IOP tx to prevent decompensation, promote sobriety, and improve mood stability. Narrative Note: []
--- NOTE | 2018-12-28 11:20 | BH.SGPN.GN ---
Behaviors/Verbalizations/Mental Status: []Client alert and oriented, casually dressed and groomed. Eye contact good. Motor activity appropriate. Speech within normal limits. Affect congruent, mood dysthymic. Thoughts linear, logical, no signs of hallucinations or delusions. Client Response/Progress/Benefit: []Client engaged participant AEB pt listening attentively to others and engaging in group activity. Client participated in the activity and processed emotions and barriers associated with making change. Client appeared to connect with discussion on weighing the pros and cons associated with change and benefited from learning to do so through use of decisional balance sheet. Identified she is currently in action stage of change. Pt stated she is in action stage because she is going to AA meetings to help her maintain sobriety. Progress noted in ability to identify which stage of change she is currently in. Recommended continued IOP to maintain sobriety, increase utilization healthy coping skills and prevent decompensation. Narrative Note: []
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
--- NOTE | 2018-12-30 12:49 | BH.DR.ITP ---
Initial Treatment Plan - Patient Information Visit Information: ADMISSION DATE: EXPECTED LOS: 4-6 weeks - Problems/Symptoms Problem #1:: Depression Symptom:: sadness, rumination, decreased ability to function at work and home
--- NOTE | 2018-12-30 13:21 | BH.MDN_ITS ---
Multi-Disciplinary Note - Note 30-min Individual Time Started:: 11:48 Date: 12/30/18 Purpose of session/treatment goals addressed:: Purpose of session was to elicit pt's current symptoms and stressors. Session focused on identifying treatment goals for IOP level of care. Eye Contact:: Good Motor Activity:: Appropriate Appearance:: Casual Speech:: Appropriate Mood:: Anxious, Dysthymic Affect:: Constricted Thoughts:: Linear, Logical, No evidence of hallucinations/delusions noted Staff Interventions:: Therapist used open ended questions to elicit pt's current symptoms and stressors. Therapist worked collaboratively with pt to identify treatment goals while in IOP. Therapist assisted pt with identifying healthy coping skills that pt can utilize to help manage emotions and prevent pt from using alcohol as her coping skill. Therapist provided support by using active listening and validating emotions. Client Response:: Pt reported yesterday she attended two AA meetings which helps her feel accepted, supported, and validated. pt stated she was helpful to her dad yesterday by taking her mom to an appointment. Pt reported it makes her feel positive when she can help others out because she reminds herself if she had been drinking she couldn't have helped. Pt stated she also met with her grief counselor yesterday and found out her counselor is retiring so she will be getting a new grief counselor. Pt reported another change is her outpatient counselor is going on maternity leave so she will be meeting with a new counselor for the next three months starting next week. Pt reported tomorrow she has a meeting with her sponser and plans to attend two AA meetings and a [facility] meeting. Pt reported while she is in IOP she would like to work on being able to identify feelings, identify what she wants out of life, and stop hiding from her emotions. Pt reported she wants to learn skills to help manage her depression and anxiety, which pt stated she believes will help her maintain sobriety. Pt identified healthy coping skills she wants to start utilizing include: playing the thought through, music, journaling, allowing self to grieve, and attending AA meetings. Risks/Concerns:: Pt denies current suicidal ideation, plan or intention to date. Progress Toward Goals/Plan:: Pt progressing with utilizing supports by attending AA meetings. Pt reports she struggles with maintaining sobriety on the weekends. Plan is to meet this Friday to create a weekend relapse prevention plan. Pt to continue IOP to increase utilization of healthy coping, maintain sobriety, and p revent decompensation. Time Stopped:: 12:15
--- NOTE | 2019-01-01 09:05 | BH.SGPN.GN ---
Behaviors/Verbalizations/Mental Status: []Client alert and oriented, casually dressed and groomed. Eye contact good. Motor activity appropriate. Speech within normal limits. Affect constricted, mood dysthymic. Thoughts linear, logical, no signs of hallucinations or delusions. Reviewed client?s symptom tracker, no risk for suicidal ideation, plan, or intent as of 01/01/19. Client Response/Progress/Benefit: []Client responded well to session, connecting with peers and receptive to encouragement. Client reports feeling ?hopeful? today and stated that overall her week has been ?pretty up and down.? Client reported being in IOP group gives client hope, but it is also hard being in mental health treatment because this week client had to ?rehash past things I?ve been stuffing.? Client reported she is realizing the benefits of addressing these things, even though it is painful. Client identified her mental health wins today which included: meeting with her sponsor, making it to group today, and reading positive emails from spiritism. Client reported weekends are always hard for client which brings client stress. However, client shared she plans to make a weekend plan with her individual counselor today to prevent relapse. Appeared to benefit from connecting with peers and reflecting on her ability to make positives by overcoming negatives this week. Will continue IOP tx to prevent relapse and decompensation of depressive symptoms. Narrative Note: []
--- NOTE | 2019-01-01 10:22 | BH.SGPN.GN ---
Behaviors/Verbalizations/Mental Status: [Client alert and oriented, casually dressed and appropriately groomed. Eye contact good. Motor activity appropriate. Speech within normal limits. Affect congruent, mood anxious and dysthymic. Thoughts linear, logical, no signs of hallucinations or delusions] Client Response/Progress/Benefit: [Client was an active participant in group activity and discussion. Pt providing some insight and nodding as others shared throughout. She connected with the topic and worked with group to identify common internal barriers that keep people stuck. Barriers discussed included; denial, lack of willingness to address personal barriers, guilt, and turning to unhealthy coping skills. Client connected with discussion regarding how these barriers can impact relationships and mental health. Shared current struggles with guilt have led to self-deprecating thoughts and shame. Client completed self-reflection activity and identified current reality as feeling as though she is walking through the sanchez lost and searching for the way out. Indicated that her past and negative thoughts are trying to pull her back. Client shared a realistic, desired reality would be reaching the edge of the sanchez and entering the clearing where her supports and healthy means of coping are. Client benefited from group as client was able to identify current mental health state and barriers that are impacting progress. Progress noted in ability to discuss how internal barriers have kept her stuck and impacted ability to quit unhealthy coping. Will continue IOP to increase consistent skill application, improve emotion regulation, and prevent decompensation.] Narrative Note: []
--- NOTE | 2019-01-01 11:22 | BH.SGPN.GN ---
Behaviors/Verbalizations/Mental Status: []Eye contact is good. Motor activity is appropriate. Appearance is casual. Speech is Appropriate. Mood is anxious. Affect is congruent. Thoughts are linear and logical. No evidence of psychosis. Client Response/Progress/Benefit: []Pt was an active participant in group discussion and activity. Able to identify low self-esteem, cognitive distortions, and complacency as obstacles which are preventing her from achieving her desired reality. Active during activity. Pt along with peers identified various obstacles during the activity and developed 3 strategies to overcome those obstacles to wellness and desired reality. Group wrote down the strategies and added them to their program binder. Benefited from group by identifying obstacles and solutions to desired reality. Narrative Note: []
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
--- NOTE | 2019-01-08 10:18 | BH.SGPN.GN ---
Behaviors/Verbalizations/Mental Status: [Client alert and oriented, casually dressed and groomed. Eye contact fair to good. Motor activity appropriate. Speech within normal limits. Affect congruent, mood depressed. Thoughts linear, logical, no signs of hallucinations or delusions. ] Client Response/Progress/Benefit: [Client active participant AEB active engagement in group activity, taking notes, and listening attentively to peers. Client did well to challenge herself to provide personal examples of resilience during discussion. She shared that the definition of resilience includes being open to asking for help. Pt went on to reflect that not asking for help in the past has prevented her from maintaining sobriety and negatively impacted resilience. Client attentive during discussion on connections between activity and barriers/supports to development of a resilient lifestyle. Client agreed with peers that one can learn to become more resilient throughout life. Client benefitted from brainstorming benefits of being resilient which included: increased self-confidence, increased ability to find different solutions to setbacks, and improved hope for the future. Client is progressing with increased willingness to honestly and openly discuss potential barriers to progress and communicate with supports outside treatment environment. Recommended continued IOP tx to promote healthy change behaviors, improve use of healthy coping skills and depression management, as well as maintain gains.] Narrative Note: []
--- NOTE | 2019-01-08 11:20 | BH.SGPN.GN ---
Behaviors/Verbalizations/Mental Status: []Client alert and oriented, casually dressed and groomed. Eye contact good. Motor activity appropriate. Speech within normal limits. Affect congruent to topic being discussed, mood dysthymic. Thoughts linear, logical, no signs of hallucinations or delusions. Client Response/Progress/Benefit: []Client engaged participant as evidenced by client providing input throughout discussion and listening attentively to peers. Client worked cooperatively with peers to identify how each resiliency component can help increase personal resiliency. Client reported she wants to work on the resiliency component of making connections. Client stated she will work on increasing social connections by attending AA meetings, contacting friends, and scheduling activities with friends. Client appeared to benefit from identifying goal to improve personal resilience factors. Client to continue IOP to increase utilization of healthy coping skills, continue to challenge and challenge distorted thoughtsand prevent decompensation. Narrative Note: []
--- NOTE | 2019-01-08 20:51 | BH.MDN ---
Multi-Disciplinary Note - Note 30-min Individual Time Started:: 09:34 Date: 01/08/19 Purpose of session/treatment goals addressed:: Purpose of session was to assess pt's current symptoms and stressors. Processed how rest of yesterday went after last individual session. Created weekend relapse prevention plan. Eye Contact:: Good Motor Activity:: Appropriate Appearance:: Casual Speech:: Appropriate Mood:: Anxious, Dysthymic Affect:: Congruent Thoughts:: Linear, Logical, No evidence of hallucinations/delusions noted Staff Interventions:: Therapist utilized open ended questions to elicit pt's current symptoms and stressors. Therapist worked with pt to create a relapse prevention plan for the weekend. Assisted pt with identifying healthy coping skills to rehearse daily. Provided support by using active listening and validating emotions. Client Response:: Pt reported after she left counseling appointment yesterday she felt validated and relieved that she had been honest about her relapse. Pt stated she found out last night that two people she knows got into a fatal car accident and their calling hours are this weekend. Pt reported her best friend's brother recently and his calling hours are this weekend as well. Pt stated she wants to attend her best friend's brothers calling hours because wants to be supportive to her friend. Pt recognized calling hours could trigger her own grief of her son's . Pt able to problem solve that she can either ask her dad to go with her or make sure he picks her up from the calling hours. Pt stated she plans to go to two AA meetings this weekend for support. Pt shared she will focus on journaling and listening to uplifting music. Pt agreeable to complete daily gratitude journal to help her focus on positives. Risks/Concerns:: Pt denies currently suicidal ideation, plan or intention to date. Progress Toward Goals/Plan:: Progress noted with pt being sober for 3 days and starting to engage in use of healthy coping skills. Pt willing to create a relapse prevention plan for the weekend. Pt continues to struggle with consistently applying healthy coping skills especially when intense emotions are triggered. Pt to continue IOP level of care to maintain sobriety, increase utlization of healthy coping, and prevent decompensation. Time Stopped:: 10:05
--- NOTE | 2019-01-11 10:14 | BH.SGPN.GN ---
Behaviors/Verbalizations/Mental Status: []Client alert and oriented, casually dressed and groomed. Eye contact good. Motor activity appropriate. Speech within normal limits. Affect congruent, mood dysthymic. Thoughts linear, logical, no signs of hallucinations or delusions. Client Response/Progress/Benefit: []Pt was an active participant in group discussion. Connected with quote that there are times she has thought she communicated, but later realizes she wasn't specific enough in her communication. Pt agreed with peers that texting and non-verbal communication can negatively impact relationships and reinforce mental health symptoms. Group discussed the MH benefits to having open and clear communication with support and providers. Group discussed the barriers that tend to impact clear and open communication which include: making assumptions, communicating with behavior, non-verbal communication, tone of voice, and misinterpretation. Pt was attentive during psycho-education on communications styles (aggressive, passive, passive-aggressive, and assertive). Also provided input on the pros and cons to each communication style. Pt seemed to benefit from increased insight on how the way she communicates impacts her mental health. Pt to continue IOP level of care to increase utilization of healthy coping skills, challenge distorted thoughts and prevent decompensation. Narrative Note: []
--- NOTE | 2019-01-11 11:17 | BH.SGPN.GN ---
Behaviors/Verbalizations/Mental Status: [Client alert and oriented, casually dressed and appropriately groomed. Eye contact good. Motor activity appropriate. Speech within normal limits. Affect congruent, mood euthymic. Thoughts linear, logical, no signs of hallucinations or delusions] Client Response/Progress/Benefit: [Client active participant AEB her positive contributions and engagement throughout, nodding throughout discussion. Client reported she can relate most to passive communication style, especially when faced with potential conflict. Client discussed that this often led to increased resentment and negative mindset, provided an example involving miscommunication between herself and her father. Noted a desire to begin moving closer towards assertive communication styles. Client took an active role during the discussion reviewing different communication styles and why each may be used, as well as how ineffective communication negatively impacts mental health and relationships. Client identified her communication goal which is to practice regularly checking in with herself to improve self-awareness of personal communication. Client seemed to benefit from increased insight into how her communication style impacts mental health and identifying strategies for increasing effective communication skills. Progressing as shown by her ability to more consistently apply healthy coping skills rather than turn to previous unhealthy habits. Will continue IOP tx to promote mood stability and depression management, further improve daily functioning, and prevent decompensation.] Narrative Note: []
--- NOTE | 2019-01-11 15:12 | BH.MDN_ITS ---
Multi-Disciplinary Note - Note 30-min Individual Time Started:: 09:17 Date: 01/11/19 Purpose of session/treatment goals addressed:: Purpose of session was to assess pt's current symptoms and stressors. Processed weekend, identifying what skills and strategies helped pt manage emotions. Identified plan for today and tomorrow, reinforcing healthy coping skills. Discussed creating a relapse prevention plan. Eye Contact:: Good Motor Activity:: Appropriate Appearance:: Casual Speech:: Appropriate Mood:: Anxious, Dysthymic Affect:: Congruent Thoughts:: Linear, Logical, No evidence of hallucinations/delusions noted Staff Interventions:: Therapist used open ended questions to elicit pt's current symptoms and stressors. Therapist processed weekend, eliciting what skills helped pt manage emotoins and maintain sobriety. Therapist worked with pt to identify plan for rest of today and plan for tomorrow when not at IOP. Therapist provided pt with homework of completing relapse prevention plan in which pt is to identify triggers, high-risk situations, and healthy coping skills. Client Response:: Pt reported today is day 6 of sobriety, which is the longest she has been sober in over a month. Pt stated she was only able to make it 3-5 jose before relasping. Pt reported she had a busy, but positive weekend. Pt stated on Friday she was irritable with her dad becvinhue didn't feel validated or heard by her dad. Pt stated in the past this situation could have triggered relapse, but instead she tried to see the situation from her dad's perspective. Pt shared on Friday she went to a [facility] meeting in the morning which sh estated was supportive and accepting. Pt stated she went to the calling hours of her best friend's brother. Pt reported right after calling hours she went to a AA meeting, which she identified helped her cope following the calling hours. Pt stated she was sad following the calling hours, but did not have an urge to drink. Pt reported yesterday she went to sabianism and to an AA meeting in the evening. Pt stated she also went to her house spending one hour at the house going through her son's belongings. Pt reported she was sad while she was there and in the past could have triggered use. Pt shared this weekend it helped that she went to several meetings and made intentional effort to connect with others while at the meetings. Pt stated she has been journaling everyday and listening to music. Pt shared tomorrow she has a meeting with her sponser, appointment with her counselor, and is going to a meeting in the evening. Pt agreeable to work on her relapse prevention plan tonight. Risks/Concerns:: Pt denies current suicidal ideation, plan or intention to date. Progress Toward Goals/Plan:: Pt progressing with being able to maintain sobriety for 6 days, which is the longest pt has been able to stay sober in over a month. Pt utilizing healthy coping skills of thought challenge, journaling, and listenign to music to help her manage emotions appropriately. Plan is to continue IOP to maintain sobriety, improve utilization of healthy coping skills and prevent decompensation. Time Stopped:: 09:53
--- NOTE | 2019-01-13 09:07 | BH.SGPN.GN ---
Behaviors/Verbalizations/Mental Status: [Client alert and oriented, casual dress, hygiene tended to. Eye contact fair to good. Motor activity appropriate. Speech within normal limits. Affect congruent, mood dysthymic but positive. Thoughts linear, logical, no signs of hallucinations or delusions. Reviewed client?s symptom tracker, no signs of suicidal ideation, plan, or intent as of today. ] Client Response/Progress/Benefit: [Pt receptive of session and engaged throughout. She did well to provide supportive feedback to the group as well as openly discuss her own thoughts, feelings, and stressors. Pt reports her current emotion is ?optimistic? as she has been struggling with coping with her current stressors but had several positive coping experiences over the weekend. Reports first mental health win as challenging herself to be open and honest with her sponsor about a recent relapse, despite guilt and shame about doing so. Pt indicated this was a positive experience and that her sponsor was supportive rather than judgmental like pt had feared. Pt noted additional win as applying concepts of radical acceptance to her relationship with her father and challenging usual desire to change how he will react to pt thoughts and behaviors. Noted that this aided in her ability to be more empathetic towards him as a result. Went on to indicate current stressor as continuing to maintain sobriety. Pt appeared to benefit from structured supportive environment of the group. Progress noted in her ability to use healthy coping via positive self-talk and reaching out to supports to manage sx of depression. Pt recommended continued IOP tx to continue to prevent decompensation, decrease depression, maintain sobriety, and promote healthy change behaviors.] Narrative Note: []
--- NOTE | 2019-01-13 10:25 | BH.SGPN.GN ---
Behaviors/Verbalizations/Mental Status: []Client alert and oriented, casually dressed and groomed. Eye contact good. Motor activity appropriate. Speech within normal limits. Affect congruent, mood dysthymic. Thoughts linear, logical, no signs of hallucinations or delusions. Client Response/Progress/Benefit: []Client attentive and engaged throughout session. Worked together with the group to define and identify differences between internal and external conflict. Client stated despite conflict being difficult it can be positive because it helps one get their needs met and it can prevent more problems from occurring. Group identified and discussed consequences of not address conflict in healthy ways which included: guilt, negative consequences, poor relationships, staying in one?s comfort zone, and rumination. Client stated avoiding conflict is unhelpful because it can lead to internal conflict which can increase mental health symptoms. Attentive during psychoeducation on different conflict styles such as avoiding, accommodating, competing, and collaborative. Client took notes and provided input during the discussion of the different types. Benefited as she was able to identify and define conflict as well as increase awareness of how conflict style impacts mental health. Will continue IOP tx to prevent decompensation, promote sobriety, and increase healthy supports. Narrative Note: []
--- NOTE | 2019-01-13 12:25 | BH.SGPN.GN ---
Behaviors/Verbalizations/Mental Status: []Client alert and oriented, casually dressed and groomed. Eye contact good. Motor activity appropriate. Speech within normal limits. Affect congruent to topic being discussed, mood euthymic. Thoughts linear, logical, no signs of hallucinations or delusions. Client Response/Progress/Benefit: []Client responded well to session, providing to discussion and activity. Contributed to ongoing discussion of the different conflict resolution styles, drawbacks, and appropriate times of use. Client indicated she is currently moving to collaborative conflict resolution style. Client stated he was previously more avoidant when it came to conflict, but recognized avoidance of conflict kept her isolated and negatively impacted her mental health. Client attentive during psychoeducation on effective conflict resolution strategies. Client appeared to benefit from increasing awareness of her personal conflict resolution style and from learning ways to increase healthy conflict resolution. Will continue IOP tx to continue use of healthy coping skills, maintain sobriety and prevent decompensation. Narrative Note: []
--- NOTE | 2019-01-15 09:05 | BH.SGPN.GN ---
Behaviors/Verbalizations/Mental Status: [] Eye contact is good. Motor activity is appropriate. Appearance is casual. Speech is Appropriate. Mood is anxious. Affect is congruent. Thoughts are linear and logical. No evidence of psychosis. Reviewed daily check in sheet and no reports of suicidal ideations or intent. Client Response/Progress/Benefit: [] Pt was an active participant in group discussion. Provided appropriate feedback to peers. Emotion for today is optimistic. Shared some recent mental health wins which included stepping outside her comfort zone, going to AA and being active, connecting with others, and starting to work through her son's possessions. Stressors include ongoing relationship with her father. Feels that she is making progress. Increased hope and daily purpose. Progress noted per pt report. Will continue in IOP to prevent decompensation, stabilize mood, provide support, and increase healthy coping skills. Benefited from group support, encouragement, and feedback. Narrative Note: []
--- NOTE | 2019-01-15 20:00 | BH.SGPN.GN ---
Behaviors/Verbalizations/Mental Status: [] Eye contact is good. Motor activity is appropriate. Appearance is casual. Speech is Appropriate. Mood is anxious. Affect is congruent. Thoughts are linear and logical. No evidence of psychosis. Client Response/Progress/Benefit: [] Pt was an active participant in group activity and discussion. Attentive during psycho-education. Worked with peers to define coping skills which included; skills to use to get us through difficult times, techniques to manage emotions, and reactions to lessen an emotional state. Group also worked together to identify how we learn our coping skills through up-bringing, habits, watching our support, trial/error, TV, and counseling. Group discussed that not all coping skills are healthy and identified common unhealthy coping skills such as; isolating, avoidance, substance abuse, using anger as a release, self-harm, reassurance-seeking, sleep, eating, and negative self-talk. Pt participated in group activity with peers. After the group they related the activity to coping skills stating that when developing coping skills it is important to have both internal and external coping skills to help. Pt benefited from increased insight and education on healthy vs unhealthy coping and internal vs external coping skills. Narrative Note: []
--- NOTE | 2019-01-18 09:05 | BH.SGPN.GN ---
Behaviors/Verbalizations/Mental Status: [Eye contact is good. Motor activity is appropriate. Appearance is casual. Speech is Appropriate rate and tone. Mood is anxious, dysthymic. Affect is congruent. Thoughts are linear and logical. No evidence of psychosis. Reviewed daily check in sheet and pt denies any active SI, plan, or intent. ] Client Response/Progress/Benefit: [Pt responded well to session, engaged throughout and open to processing with the group. Pt indicated current emotion as ?tired/spent? and discussed that this is due to not getting a lot of sleep over the weekend as she fears her mother will wander off outside and get hurt. Discussed that although this is a stressors, she is glad to be living at home so she can provide support to her parents. Pt did well to identify mental health wins which included using her supports as well as positive self-talk to ?make it through the weekend? without engaging in maladaptive coping behaviors by drinking. Additional win as starting to drive again and not going to the store to purchase alcohol despite having the means of doing so. Pt appearing to benefit from support and structure of group environment. Expressed connecting with fellow participants. She continues to make progress in practicing internal means for coping and is recommended continued IOP tx to prevent decompensation, decrease depression, and promote ongoing application of healthy coping skills.] Narrative Note: []
--- NOTE | 2019-01-18 10:10 | BH.SGPN.GN ---
Behaviors/Verbalizations/Mental Status: []Client alert and oriented, casually dressed and groomed. Eye contact good. Motor activity appropriate. Speech within normal limits. Affect constricted, mood dysthymic. Thoughts linear, logical, no signs of hallucinations or delusions. Client Response/Progress/Benefit: []Client responded well to session, active and providing good insight to discussion. Client connected with the group topic of crisis and did well to work with group to define crisis. Client identified examples of potential crisis to include unexpected loss, , and hardships out of one?s control. Connected with discussion on how coping with external crisis by using unhealthy coping skills could lead to personal crisis. Client shared ?how we respond to crisis can make it worse.? Group identified unhealthy coping skills to include; substance use, unhealthy relationships, eating more, avoidance, outbursts, and risk-taking behaviors. Group identified warning signs for crisis which included; isolating, loss of functioning, over-working, and self-harm. Client completed the personal warning signs worksheet and identified crisis warning signs to include; substance use, isolation, and negative thinking. Benefited from group by increasing awareness of crisis and personal warning signs. Progress noted as client continues to report sobriety from alcohol. Will continue IOP tx to prevent decompensation, maintain sobriety, and increase use of healthy coping skills. Narrative Note: []
--- NOTE | 2019-01-18 11:13 | BH.SGPN.GN ---
Behaviors/Verbalizations/Mental Status: []Client alert and oriented, casually dressed and groomed. Eye contact good. Motor activity appropriate. Speech within normal limits. Affect congruent to topic being discussed, mood dysthymic. Thoughts linear, logical, no signs of hallucinations or delusions. Client Response/Progress/Benefit: []Client responded well to session as evidenced by client listening attentively to others and sharing when prompted. Client identified her warning signs for crisis and gained further awareness of her earliest warning signs. Client recognized that awareness of these warning signs can prevent further crisis and help client utilize healthy coping skills to break the cycle. Client created a crisis action plan to help client better manage warning signs for crisis. Client?s plan included calling sponsor, attending AA meetings, challenging thought patterns, opposite action, using supports, and asking herself the consequences of continuing current coping skill. Client selected tangible items for crisis survival kit that will help her remember these crisis interventions. Client appeared to benefit from creating a crisis action plan and increasing her self-awareness. Client to continue IOP to prevent decompensation, maintain sobriety, and continue utilizing healthy coping skills. Narrative Note: []
--- NOTE | 2019-01-20 09:00 | BH.SGPN.GN ---
Behaviors/Verbalizations/Mental Status: [] Eye contact is good. Motor activity is appropriate. Appearance is casual. Speech is Appropriate. Mood is anxious. Affect is congruent. Thoughts are linear and logical. No evidence of psychosis. Reviewed daily check in sheet and no reports of suicidal ideations or intent. Client Response/Progress/Benefit: [] Pt was an active participant in group discussion. Emotion for today is hopeful. Noted some mental health wins recently which included being more engaged in Thanksgiving this year with her family. Due to her grief and alcoholism she was avoidant last year. Currently helping her father with shopping, cooking, and getting the house ready. Feels more involved in family. Being proactive and has scheduled herself with some activities over the holidays in the coming weeks. Stressor is her relationship with her father as she feels that he is passive aggressive. Group provided feedback and encouraged her to not set her expectations to high regarding the holiday as stress will most likely occur. Benefited from group support, encouragement, and feedback. Will continue in IOP to prevent decompensation, stabilize emotions, and improve daily functioning. Narrative Note: []
--- NOTE | 2019-01-20 10:02 | BH.SGPN.GN ---
Behaviors/Verbalizations/Mental Status: []Client alert and oriented, casually dressed and groomed. Eye contact good. Motor activity appropriate. Speech within normal limits. Affect congruent to topic being discussed, mood euthymic. Thoughts linear, logical, no signs of hallucinations or delusions. Client Response/Progress/Benefit: []Pt receptive of session, engaged throughout. She did well to work with the group to reflect on the quote and discussed the ways in which perspective can impact mental health and ability to make personal progress in life. Pt worked with group to identify how negative perspective can impact mental health which included: unrealistic expectations, self-sabotage, maintain depression and anxiety, overgeneralizing, increased distorted thoughts, and decreased self-confidence. Pt did well to engage in the challenge activity. Pt stated past experiences can impact perspective either positively or negatively. Pt stated her dad always responds with how she can do something better, which has impacted her because now doesn't share any positives with him. Pt appeared to benefit from increasing understanding of mental health benefits of a positive perspective and potential consequences to progress when perspective is negative. Recommended continued IOP tx to continue use of healthy coping skills, maintain sobriety, and prevent decompensation. Narrative Note: []
--- NOTE | 2019-01-20 23:44 | BH.MDN_ITS ---
Multi-Disciplinary Note - Note 30-min Individual Time Started:: 11:15 Date: 01/20/19 Purpose of session/treatment goals addressed:: Purpose of session was to assess pt's current symptoms and stressors. Identify plan to assist pt with managing emotions during holiday that could trigger grief and urges to drink alcohol. Eye Contact:: Good Motor Activity:: Appropriate Appearance:: Casual Speech:: Appropriate Mood:: Euthymic Affect:: Full Thoughts:: Linear, Logical, No evidence of hallucinations/delusions noted Staff Interventions:: Therapist used open ended questions to elicit pt's current symptoms and stressors. Therapist worked with pt to create a plan that included activities, healthy coping skills, and thought patterns that can help pt get through the holiday. Therapist provided support by using active listening and validating emotions. Client Response:: Pt reported she is 15 days sober today and is feeling proud of herself for maintaining sobriety. Pt stated she met with her counselor earlier this week and yesterday met with her grief counselor. Pt reported she has noticed she hasn't been using her coping skills of journaling, listening to music, and coloring recently because has been busy. Pt recognized importance of making her coping skills a priority so she can maintain sobriety and continue to improve her mental health. Pt worked cooperatively to create plan for rest of today and for tomorrow during the holiday. Pt stated her biggest worry is getting stuck in negative emotions over grief of her son. Pt identified her plan today is to go home and help prepare food and help clean the house. Pt st ated her brother and his family will be in this afternoon so she will spend the rest of the night catching up and playing games with family. Pt reported if needed she can attend an AA meeting [facility]. Pt stated tomorrow she plans to attend two AA meetings one in the morning and one in the evening. Pt reported she will make time for her to listen to music and color as self-care activites. Pt stated she will also light a candle tomorrow during dinner as a rememberance of her son. Pt reported she will attend [facility] on Friday. Pt stated feeling comfortable with identified plan to help her manage emotions during holiday. Risks/Concerns:: Denies current suicidal ideation, plan or intention to date. Progress Toward Goals/Plan:: Progress noted as today is pt's 15th day of sobriety. Pt has increased self-awareness of triggers to alcohol use, improved utilization of healthy coping skills and is allowing self to feel emotions instead of using substances to numb herself. Pt to continue IOP level of care to maintain sobriety, continue utilization of healthy coping skills, and prevent decompensation. Time Stopped:: 11:36
--- NOTE | 2019-01-22 09:05 | BH.SGPN.GN ---
Behaviors/Verbalizations/Mental Status: []Client alert and oriented, neatly dressed and groomed. Eye contact good. Motor activity appropriate. Speech within normal limits. Affect congruent, mood euthymic. Thoughts linear, logical, no signs of hallucinations or delusions. Reviewed client?s symptom tracker, no risk for suicidal ideation, plan, or intent as of 01/22/19. Client Response/Progress/Benefit: []Client responded well to session, providing supportive statements to peers and receptive to feedback. Client reports feeling ?optimistic? today and identified numerous mental health wins. Client shared it is her 17 day sober from alcohol. Client reported this is the longest she has been sober in over a month and a half. Client stated this win is even more significant because she was sober over the holiday. Client reported going to meetings, getting grief counseling, and learning coping skills in IOP has been helping client stay sober. Client shared she told her brothers how much she appreciated them yesterday when her family got together for Thanksgiving which was another one of her mental health wins. Client reported her stressor is that she is worried about maintaining sober over the holidays, but being able to make it through Thanksgiving without drinking gives client hope that she can do it again. Client receptive to supportive statements from peers on maintaining sobriety. Appeared to benefit from connecting with peers and reflecting on progress. Will continue IOP tx to promote mood stability, sobriety, and use of healthy coping skills. Narrative Note: []
--- NOTE | 2019-01-22 10:10 | BH.SGPN.GN ---
Behaviors/Verbalizations/Mental Status: []Client alert and oriented, casually dressed and groomed. Eye contact good. Motor activity appropriate. Speech within normal limits. Affect congruent, mood dysthymic. Thoughts linear, logical, no signs of hallucinations or delusions. Client Response/Progress/Benefit: []Pt was an active participant in group activity and discussion. Shared insight on quote of the day. Group worked together to define goals and identify the benefits of developing goals which included: sense of purpose, can measure progress, learn from goals, keeps you moving forward, increases confidence, and increases motivation. Group also identified barriers to setting and accomplishing goals which include: no motivation, self-doubt, depression, feeling lost, and unrealistic expectations. Attentive during education on developing SMART goals. Pt stated if she doesn't have goals she will stay stuck, which will exasperate her mental health problems. Benefited from increase awareness of goal-setting methods. Will continue in IOP to prevent decompensation, maintain sobriety, and improve emotional regulation. Narrative Note: []
--- NOTE | 2019-01-22 11:11 | BH.SGPN.GN ---
Behaviors/Verbalizations/Mental Status: [Client alert and oriented, casually dressed and groomed. Eye contact good. Motor activity appropriate. Speech within normal limits. Affect congruent, mood euthymic. Thoughts linear, logical, no signs of hallucinations or delusions. ] Client Response/Progress/Benefit: [Pt attentive throughout, contributed thoughts to discussion and provided supportive feedback to fellow participants. Engaged in creating own mental health SMART goal. Pt identified goal is to complete 2 gratitude exercise, 1 journal prompt, and a ? hour of coloring daily over the next week. Pt reported this goal will benefit her by increasing self-worth and application of self-care skills. Pt identified potential barriers to accomplishing goal to include: lack of motivation and justifying not doing it. Pt reported she will overcome barriers by setting a reminder alarm, scheduling ahead, using opposite action, and positive affirmations. Seemed to benefit from identifying a SMART goal and coming up with strategies to overcome potential barriers. Pt to continue IOP to increase consistent application of healthy coping skills, decrease depression, maintain sobirety, and prevent decompensation.] Narrative Note: []
[2019-01-27 12:19] VITALS: BP 106/72; PULSE 68; RESP 14
== END 2019-01-23 23:59 ==
LOC: BHIOP 09:00
PROVIDERS: Family Provider Family Medicine; PCP Family Medicine; Referring Provider Psychiatry & Neurology Psychiatry; Visit Provider Psychiatry & Neurology Psychiatry
DX: F33.1 Major depressive disorder, recurrent, moderate (principal); F43.10 Post-traumatic stress disorder, unspecified; F41.9 Anxiety disorder, unspecified; Z72.89 Other problems related to lifestyle; I10 Essential (primary) hypertension; E03.9 Hypothyroidism, unspecified; Z79.899 Other long term (current) drug therapy
CPT/HCPCS: 36415; 84439; 84443; 90792; H0035; H2012; H2020; T1002; 90832; 90834

== ENCOUNTER → 2018-12-28 14:02 | Outpatient (CLI) | payer MEDICAID, SELFPAY ==
[2018-12-23 14:23] VITALS: BMI 39.7
[2018-12-28 16:03] LABS: T4 Free Direct 1.35 ng/dL (0.76-1.46); Thyroid Stim Hormone (TSH) 1.28 uIU/mL (0.358-3.74)
== END ==
PROVIDERS: Family Provider Family Medicine; PCP Family Medicine; Referring Provider Family Medicine; Visit Provider Family Medicine
DX: E03.9 Hypothyroidism, unspecified (principal)
CPT/HCPCS: 36415; 84439; 84443

== ENCOUNTER 2019-01-25 09:00 | Outpatient (RCR) | payer MEDICAID, SELFPAY ==
[2018-12-23 14:23] VITALS: BMI 39.7
--- NOTE | 2019-01-25 09:04 | BH.SGPN.GN ---
Behaviors/Verbalizations/Mental Status: [Eye contact is good. Motor activity is appropriate. Appearance is casual. Speech is Appropriate rate and tone. Mood is euthymic. Affect is congruent. Thoughts are linear and logical. No evidence of psychosis. Reviewed daily check in sheet and pt denies any active SI, plan, or intent. ] Client Response/Progress/Benefit: [Pt responded well to session, engaged throughout and open to processing with the group. Provided feedback to fellow participants. Pt indicated current emotion as ?mellow? and discussed that this is due to feeling more level in her mood and capable of coping with current stressors. Pt went on to identify mental health wins which included using reframing when forgetting to complete mental health self-care goal on Friday. Noted that instead of dismissing the goal altogether she was able to identify she could instead spend more time on self-care a different night instead. Additional win identified as increasing her willingness to ask others for help rather than denying she may need it or isolating instead. Receptive of feedback provided by group and appearing to benefit from support and structure of group environment. Pt continues to make progress in practicing more consistent use of coping skills outside tx environment and continues to report maintaining sobriety. Pt recommended continued IOP tx to prevent decompensation, decrease depression, maintain gains made, and promote ongoing application of healthy coping skills.] Narrative Note: []
--- NOTE | 2019-01-25 10:15 | BH.SGPN.GN ---
Behaviors/Verbalizations/Mental Status: [] Eye contact is good. Motor activity is appropriate. Appearance is casual. Speech is Appropriate. Mood is euthymic. Affect is full. Thoughts are linear and logical. No evidence of psychosis. Client Response/Progress/Benefit: [] Pt was an active participant in group discussion and activity. Worked with peers to identify and define pitfalls in mental health. Group identified several definitions which included; something that you continuously fall into, engaging in choices that keep us stuck, unexpected dangers, and unforeseen difficulty. Attentive on psycho-education on the impact of how one hubert with or manages pitfalls in regards to mental health. Group worked together to identify what keeps us stuck or vulnerable to pitfalls which included; decreased self-awareness, poor self-esteem, unhealthy coping, negative thoughts, being comfortable in the pitfall, fear of change, and self-sabotage. Benefited from increased awareness on the impact that pitfalls can have on mental health. Narrative Note: []
--- NOTE | 2019-01-25 11:18 | BH.SGPN.GN ---
Behaviors/Verbalizations/Mental Status: []Client alert and oriented, casually dressed and groomed. Eye contact good. Motor activity appropriate. Speech within normal limits. Affect congruent, mood euthymic. Thoughts linear, logical, no signs of hallucinations or delusions. Client Response/Progress/Benefit: []Client receptive of session, engaged throughout AEB client contributing to discussion and taking notes. Processed activity with group and connected it to overcoming personal pitfalls in life. Client completed a worksheet where she identified personal pitfalls impacting mental health progress. Identified pitfalls as: low self-esteem, black and white thinking, unhealthy coping skills, negative self-talk, and feeling discouraged. Client recognized that with awareness and use of healthy coping skills, it is possible to prevent or better manage pitfalls. Client agreed with peers that it takes awareness and self-reflection in order to overcome pitfalls. Attentive during psychoeducation on strategies to overcome pitfalls. Client stated she will work on preventing pitfalls by keeping track of her mental health wins. Benefited from identifying personal pitfalls and strategies to overcome these pitfalls. Progress noted as client continues to report sobriety from alcohol and states she has been practicing self-care. Will continue IOP tx to prevent decompensation, maintain sobriety, and increase use of healthy coping skills. Narrative Note: []
--- NOTE | 2019-01-27 09:05 | BH.SGPN.GN ---
Behaviors/Verbalizations/Mental Status: [] Eye contact is good. Motor activity is appropriate. Appearance is neat. Speech is Appropriate. Mood is euthymic. Affect is full. Thoughts are linear and logical. No evidence of psychosis. Reviewed daily check in sheet and no reports of suicidal ideations or intent. Client Response/Progress/Benefit: [] Pt was an active participant in group discussion. Emotion for today is guarded but ecstatic. Mental health wins that she was able to identify included increased self care. Stated that she started wearing make-up again. Was able to tie this into her mental health noting increased mood which has motivated her in many areas of her life. Remains sober. Shared that she has begun to open up more about the impact of her son's on her mental health. Has been active in an online group which is going to be featured in an upcoming news story. She agreed to be interviewed which she beleived was helpful. Discussed the emotions related to talking about her son as well as some of her fears. Overall happy that she went through with it. Stressors continues to be car problems. Progress noted per pt report. Benefited from group support, encouragement, and feedback. Will continue in IOP to prevent decompensation, obtain support, and increase healthy coping skills. Narrative Note: []
--- NOTE | 2019-01-27 10:20 | BH.SGPN.GN ---
Behaviors/Verbalizations/Mental Status: []Client alert and oriented, casually dressed and groomed. Eye contact good. Motor activity appropriate. Speech within normal limits. Affect congruent, mood euthymic. Thoughts linear, logical, no signs of hallucinations or delusions. Client Response/Progress/Benefit: []Client responded well to session, actively contributing to discussion. Client appeared to connect with the topic of fear of failure. Client stated failure can eventually lead you to success because sometimes failure ?just means you needed to change direction.? Client reported if one focuses on past failures it can lead to self-sabotage and missed opportunities. Group identified the impacts of fear of failure on mental health which included: not trying, low self-esteem, depending too much on others, avoidance, hopelessness, and increased mental health symptoms. Client agreed with peers that in order to move past failure it is important to challenge one?s perspective on failure. Client seemed to benefit from increased awareness of how fear of failure can impact mental health. Client to continue IOP level of care to promote sobriety, increase healthy coping skills, and improve daily functioning. Narrative Note: []
--- NOTE | 2019-01-27 11:21 | BH.SGPN.GN ---
Behaviors/Verbalizations/Mental Status: [Client alert and oriented, casually dressed and well groomed. Eye contact good. Motor activity appropriate. Speech within normal limits. Affect congruent, mood dysthymic. Thoughts linear, logical, no signs of hallucinations or delusions.] Client Response/Progress/Benefit: [Client responded well to session, active participant and willing to engage. Client worked with the group to complete the challenge activity and shared that encouragement and assistance from fellow participants helped to accomplish the activity. Client completed the fear of failure worksheet and reported that fear of failure is keeping her from living her life to it?s fullest potential. Reported barriers for overcoming fear of failure are past experiences, slow confidence levels, perfectionism, absolute thinking, lack of education, and over empathizing. Client shared he has been able to learn from setbacks in the past and the positive thing past failures have taught her is that failure can create new opportunities. Client selected a goal to help overcome fear of failure. Client?s goal is to focus on that which is in her control rather than the uncontrollables. Client appeared to benefit from gaining awareness and setting a goal to reduce fear of failure. Client showing progress in increasing insight and improving use of healthy coping skills. Pt recommended continued IOP tx to improve healthy change behaviors, decrease depression, and increase application of skills learned.] Narrative Note: []
--- NOTE | 2019-01-27 11:24 | PCM.BH.PN_ITS ---
Progress Note Progress Note: History of Present Illness/Interim History: [] Patient is a 58-year-old female with a history of depression, PTSD and alcohol use disorder who is seen in follow-up at the [facility] program. I last saw the patient about 1 month ago. Patient states that she is doing quite well in the IOP program. She feels that she is learning valuable skills that she is able to use. She is also using the techniques she learned here to help with her mood stabilization and functioning. She is still sober and has had no alcohol use for the past 3 weeks. In addition she is attending [employer] and [employer] and even a few other groups. She says that her mood has improved and she considers her mood now to be relatively normal. She says she only feels depressed when she thinks of her son being gone. She likens this more to grief at this point than depression. She is enjoying things that she used to enjoy which includes cooking, listening to music and going to her groups in order to maintain sobriety. The patient never increase her Effexor XR to 225 and never picked up the prescription and she says that she does not want increased meds at this time because she is doing much better now. Patient is still looking for a job locally. Current Psychiatric Medications: [] Effexor XR 150 mg p.o. daily, naltrexone 50 mg p.o. daily; BuSpar 10 mg p.o. twice a day; Wellbutrin 75 mg p.o. twice a day Mental Status Examination: [] Patient is a 58-year-old female who appears normal for stated age. She is casually dressed and groomed with good hygiene. She is mildly obese. She is amatory with a normal gait and is cooperative during the exam. She has good eye contact. Her speech is normal rate and rhythm, fluent with no pressure. Her mood is euthymic. Her affect is full and normal. Thought process: Goal-directed and organized. Thought content: No evidence of suicidal or homicidal ideation. No passive thoughts. No hallucinations or delusions. Concentration: Intact. Judgment intact. Impulsivity low. Insight good. Diagnoses: [] Alpine I: [] Ager depressive disorder recurrent moderate; anxiety disorder unspecified; PTSD; alcohol use disorder Alpine II: [] Deferred Alpine III: [] hypothyroid; hypertension Alpine IV:[]] Primary support, financial issues Plan: [] Patient will continue the IOP program as the structure, support, individual and group therapy and education will prevent worsening of her symptoms which might require hospitalization. The patient felt safe during the interview and if it any time she does not feel safe she will let us know at the IOP program or go to the emergency room. The risks, options, and possible side effects of the medications were discussed with the patient and she understands and accepts these. The patient understands also the importance of staying sober and will continue to abstain from alcohol use or any other drug use. We will continue her current medications at the dose that she is on now. I will follow- up with the patient regularly. She will also continue to follow-up with her outpatient providers.
--- NOTE | 2019-01-27 20:16 | BH.MTP_ITS ---
Master Treatment Plan - Patient Information Program Physician:: Dr. Murphy Primary Therapist:: Santa Dolan [facility] - Psychiatric Diagnoses Psychiatric Diagnoses:: Major depressive disorder recurrent moderate; anxiety disorder unspecified; PTSD; alcohol use disorder; Diagnosis Code(s):: F 33.1 - Estimated LOS Estimated LOS (in weeks):: 6 Problem/Goal #1 - Problem/Goal #1 Stated Goal:: Client will reduce depression, feelings of hopelessness, and suicidal ideation due to Major Depressive Disorder through Intensive Outpatient Program. Description of Barriers: Pt's has long hx of using alcohol as way to cope with mental health problems and is recently sober. Pt's negative core beliefs, disto rted thoughts, low motivation, and anhedonia could also be potential barriers to treatment. Functional Impact: Client has hx of utilizing alcohol as way of coping with depressed symptoms which negatively impact pt's ability to maintain a job or form healthy relationships. Goal Relevant Strengths/Supports: Pt is resilient and expresses motivation to get better. - Objectives Objective #1 Stated Objective: Identify 2-3 thoughts or behaviors that reinforce depressive symptoms and replace negative thoughts with more rational thinking. Interventions: Therapist will help client identify distorted thinking that triggers or reinforces depressive state. Therapist will provide client with resources to help guide in replace trigger thoughts or behaviors. Discharge Criteria: Client will have met this goal when she can verbalize at least 2 thoughts or behaviors that reinforce depressive episode, identify rational response to replace those thoughts, and effectively be able to defeat suicidal ideation. Target Date: 02/10/19 Review Date: 01/27/19 Objective #2 Stated Objective: Client will learn and utilize 2-3 healthy coping strategies to manage depressive symptoms. Interventions: Therapist will assist client in learning internal coping strategies to manage anxious symptoms, along with helping client identify triggers. Discharge Criteria: Client will have achieved this goal when can consistently utilize at least 2 healthy coping strategies to manage depressive symptoms. Target Date: 02/10/19 Review Date: 01/27/19 Objective #3 Stated Objective: Pt will decrease depressive symptoms AEB pt?s score on the DSM 5 cross-cutting measure and improve pt?s daily functioning. Interventions: Through groups and individual therapy, pt will be provided with education on cognitive distortions, mistaken beliefs, and identifying and combating negative self-talk. Therapist will assist pt with getting back into the activities she once enjoyed as well as increasing healthy coping strategies. Discharge Criteria: Pt will have met this goal when pt?s score on the DSM 5 cross cutting measure for depression has been decreased and per pt?s report daily functioning has improved. Target Date: 02/10/19 Review Date: 01/27/19
--- NOTE | 2019-01-27 20:17 | BH.PSA_ITS ---
Source of Information - Presenting Problems/Circumstances Problems, Referral Source, Mental Status, Client: The patient has struggled with her alcohol use disorder for years and has participated in residential treatment, numerous detoxes, substance abuse IOP with no extended sobriety. She was referred here by her substance abuse counselor at [facility] because they feel that her depression and grief may be interfering with her sobriety. Her last alcohol use was 1 week ago. Psychiatric Presentation - Psych Issues & Need for Admission Psychiatric Issues:: Hx of anxiety, depression, and alcohol dependence. Past Psychiatric History - Treatment Hx Treatment History: Pt has had a lot of counseling in the past. Pt first obtained counseling and treatment around age 21. She admits to having done rehab and detox for alcohol at least 6 times in the past. Her most recent episode of detox for alcohol was in April 2018 at [facility]. Pt has completed IOP addiction program in the past. In 2017 pt participated in [facility] IOP, but did not successfully complete program due to alcohol relapse. First hospitalization:: denies Current providers for mental health treatment (counselor, psychiatrist, supportive employment case manager, etc.): currently has a grief counselor and a substance abuse counselor at [facility] whom she tries to see once a week. Development & Family of Origin - Childhood Significant Childhood Events: denies any significant childhood events. - Family Who currently lives in your home?: currently owns a home, but has been staying her parents since her son overdosed in her home about one year ago. Describe family composition:: She is the oldest of 3 children. She grew up with her parents and 2 brothers. She describes it as a good family. First marriage lasted 1 year and ended in divorce. Second marriage lasted 5 years and ended in divorce in 2004. Her only son of an overdose at age 26 in September 2017. - Family History Family History: Family History (Last Reviewed 06/16/19 @ 15:[address] Mansoor Chavarria, DO) Mother Arthritis Diabetes Father Heart disease Family Hx of Psychiatric or AOD Problems: Paternal grandmother has a history of depression. Her son who is has a history of opiate dependence and alcohol dependence. Ethnicity - Culture Do you identify yourself with any particular cultural, ethnic background, or community?: No - Sexuality Sexual Orientation: Heterosexual Mental Status - Memory Recent Memory: Fair Remote Memory: Fair - Concentration Concentration: Fair - Eye Contact Eye Contact: Good - Speech Speech: Articulate - Thought Process Thought Process: Logical, Ruminations Insight: Fair Judgment: Fair Behavior: Anxious - Orientation Orientation: Time, Person, Place, Situation - Appearance Appearance: Appropriate - Mood Mood: Anxious, Depressed - Affect Affect: Alert Suicide Assessment - Suicidal Ideation Have you ever felt like hurting yourself?: Yes Please explain:: She has one suicide attempt in the past by overdose on alcohol and antidepressants in 1984. Were you using ETOH/drugs at the time?: Yes Suicidal Intentional Rating Scale (SIRS): Suicidal thoughts (past) Physician Notification: If Active suicidal thoughts/Will not contract for safety is checked, contact physician and document in the Physician Notification section below. Violent Behavior/Abuse History - Homicidal Ideation Do you have any homicidal thoughts? If so, explain:: No Is there a known potential victim? If yes, who:: No - Abuse Have you ever been abused?: No - Life Events Are there any other significant life events?: - son from overdose in 2018., Hardships - helps care for her mom who has dementia, Family illness - Safety Do you ever feel threatened in your home? If yes, describe:: No Adult Social History - Age 19 to Present Describe your current support system:: Pt identifies attending AA and her AA sponser as her support system. Substance Use - Substance Substance Use Type: Alcohol - [] Patient first used alcohol at age 19. At her peak she drinks 6-12 beers daily and drank to the point of blacking out. Hasn't drank alcohol in one week., Caffeine - She currently consumes about a liter of caffeinated soda daily. 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 Service - Service Have you ever been in the ?: No Legal History - Records Have you had any past legal charges?: Yes - Felony for unlawfully providing a minor with a firearm; DUI; open container Do you have any current legal charges?: No Have you ever been incarcerated? If yes, describe:: Yes - 1 year in [place] for unlawfully providing minor with a firearm. - Court Orders Have you had any past court orders for psychiatric treatment?: No Do you have a present court order for psychiatric treatment?: No Problem Checklist - Current Problem Areas Problem List: Depressed mood/sad, Anxiety, Traumatic stress, Inattention, Impulsivity, Substance use - Has been sober for one week. Long hx of alcohol addiction., Additional psychosocial stressors Diagnoses - Diagnoses Diagnosis #1:: F33.1 Major depressive disorder recurrent moderate Diagnosis #2:: anxiety disorder unspecified Diagnosis #3:: PTSD Diagnosis #4:: alcohol use disorder Interpretive Summary - Interpretive Summary Interpretive Summary: Patient is a 58-year-old female with a history of major depression, PTSD and alcohol use disorder. The patient has struggled with her alcohol use disorder for years and has participated in residential treatment, numerous detoxes, substance abuse IOP with no extended sobriety. She was referred here by her substance abuse counselor at [facility] because they feel that her depression and grief may be interfering with her sobriety. Her last alcohol use was 1 week ago. When she drinks alcohol she drinks for 3 to 4 days straight and uses 3 ?tall boys? per day during those drinking binges. She says she feels occasionally hopeless but not always. She does endorse worthlessness. She says that sometimes she feels depressed and sometimes her mood is all over the place. She cries about once a week. She says she has gained about 30 pounds in the past year and she is not sure why. She does endorse feeling some guilt. Her anxiety she describes as mild but it increased when she starts worrying about money. She denies any thoughts of suicidal ideation or homicidal ideation. She has no thoughts that she would be better off . She denies any hallucinations or delusions. She denies any history of swetha. Her current stresses include not having a job which causes financial stress. In addition her only child a son at age 25 1 year ago of a heroin overdose. She minimizes the effect of his and overall minimizes her depression and grief. She does admit to feeling some withdrawal in the past when she is not drinking and she admits to drinking in the morning and having blackouts in the past. Is been since 2004. She denies any history of self-harm, eating disorder, or head trauma. Treatment Plan Recommendations - Recommendations Guidelines: Special needs identified to be included in the development of an individualized treatment plan regarding past psychiatric history and treatment, developmental events, family relationships/events/culture, past and/or current educational, occupational, social, and residential experience, and legal status. Recommendations:: Pt recommended IOP level of care to increase healthy coping skills, address underlying mental healh issues to maintain sobriety, lower level of care not being effective, and to prevent decompensation.
--- NOTE | 2019-01-29 09:03 | BH.SGPN.GN ---
Behaviors/Verbalizations/Mental Status: [Eye contact is good. Motor activity is appropriate. Appearance is casual, grooming good. Speech is Appropriate rate and tone. Mood is euthymic, positive. Affect is congruent. Thoughts are linear and logical. No evidence of psychosis. Reviewed daily check in sheet and pt denies any active SI, plan, or intent.] Client Response/Progress/Benefit: [Pt responded well to session, engaged throughout and open to processing with the group. Pt indicated current emotion as ?hopeful? and discussed that this is due to feeling increasingly capable of managing stressors and maintaining patience in doing so. Identified this as a major win as in the past pt would turn to alcohol when becoming stressors or impatient with herself or others. Additional win noted as being able to successfully step outside her box and help someone in her support [place] which she indicates as progress as in the past she would have told herself ?you shouldn?t help anyone else when you cant help yourself?. Receptive of feedback provided by group and appearing to benefit from support and structure of group environment. Pt progress in self report of increasing use of supports and continued sobriety, reports increased hope. Pt recommended continued IOP tx to prevent decompensation, and promote ongoing application of healthy coping skills, and maintain stability.] Narrative Note: []
--- NOTE | 2019-01-29 10:30 | BH.SGPN.GN ---
Behaviors/Verbalizations/Mental Status: []Pt alert and oriented, eye contact good, casually dressed, motor activity appropriate, speech normal rate and tone, mood euthymic, congruent affect, thoughts linear and intact, no evidence of delusions or hallucinations. Client Response/Progress/Benefit: []Client engaged participant as shown by client?s contribution to discussion and helpful insight. Client participated in the discussion of the common myths about self-care including self-care is selfish, easy, makes us weak, and always fun. Client worked with group to debunk the myths about self-care. Client stated self-care is more than just dressing nice because one can look nice, but still not engaging in balanced self-care. Client seemed to benefit from increased awareness of the importance of self-care. Client showing progress as shown by her increased awareness of unhealthy thought patterns. Will continue tx to identify and challenge distorted thoughts, increase healthy coping skills, and prevent decompensation. Narrative Note: []
--- NOTE | 2019-01-29 11:30 | BH.SGPN.GN ---
Behaviors/Verbalizations/Mental Status: []Client alert and oriented, neatly dressed and groomed. Eye contact good. Motor activity appropriate. Speech within normal limits. Affect congruent, mood euthymic. Thoughts linear, logical, no signs of hallucinations or delusions. Client Response/Progress/Benefit: []Client receptive of session, actively listening and contributing to discussion. Willing to complete worksheet activity. Participated as the group further processed the activity and connected with the importance of self-care in maintaining mental health and promoting balance. Client completed self-assessment activity on the different areas of self-care and was able to identify current practices she uses and identify areas she can improve upon. Client reported she can improve her spiritual self-care. Client set a goal to improve in the area of spiritual self-care. Client?s goal is to play the piano more often and to practice meditation. Client shared this would benefit client because client loves music and finds it to be healing. Client appeared to benefit from increasing awareness of how she can improve her self-care balance. Progress noted as client continues to report sobriety and has been applying healthy coping skills on a more consistent basis. Will continue IOP tx to promote sobriety, increase healthy coping skills, and further decrease depression. Narrative Note: []
--- NOTE | 2019-01-29 15:14 | BH.MDN_ITS ---
Multi-Disciplinary Note - Note 30-min Individual Time Started:: 08:52 Date: 01/29/19 Purpose of session/treatment goals addressed:: Purpose of session was to assess pt's current symptoms and stressrs. Other topics included: reviewing healthy coping skills and creating maintenance plan for weekend. Eye Contact:: Good Motor Activity:: Appropriate Appearance:: Casual Speech:: Appropriate Mood:: Euthymic Affect:: Full Thoughts:: Linear, Logical, No evidence of hallucinations/delusions noted Staff Interventions:: Therapist utilized open ended questions to elicit pt's current symptoms and stressors. Therapist reviewed healthy coping skills pt can utilize over weekend to help manage emotions. Discussed importance of using skills even when feeling better. Worked collaboratively with pt to identify maintenance plan for weekend to help maintain sobriety. Client Response:: Pt reported she had a really good week since successfully making it through the holiday while being sober. Pt stated she has attended several AA and Al-Anon meetings over the past week, attending counseling appointment, and spent time wth her sponser. Pt reported she hasn't had any urges to drink alcohol in the past week. Pt stated she has been spending time baking and will take things she has made to AA meetings and episcopalian events. Pt reported this weekend she has plans to attend an AA meeting tonight, two meetings on Friday and on Friday will go to episcopalian and an evening meeting. Pt reported she doesn't have other plans made for the weekend, but will focus on getting back to using her healthy skills of coloring, listening to music and journaling. Pt stated she will also continue to challenge any distorted thought patterns. Risks/Concerns:: Denies suicidal ideation, plan or intention to date. Progress Toward Goals/Plan:: Progress noted with maintaining sobriety and reporting improved mood. Pt continues to struggle with consistent application of healthy coping skills when she starts to feel emotionally better. Pt to continue IOP to maintain gains, increase consistent use of skills, and prevent decompensation. Time Stopped:: 09:25
--- NOTE | 2019-02-01 09:05 | BH.SGPN.GN ---
Behaviors/Verbalizations/Mental Status: []Client alert and oriented, casual dress, hygiene tended to. Eye contact good. Motor activity appropriate. Speech within normal limits. Affect congruent, mood anxious. Thoughts linear, logical, no signs of hallucinations or delusions. Reviewed client?s symptom tracker, no signs of suicidal ideation, plan, or intent as of today. Client Response/Progress/Benefit: []Pt was an active participant in group discussion, providing input and openly processing feelings with the group. Emotion for today is slightly anxious. Pt identified mental health positive is providing support to a friend that pt used to go to IOP with at a different agency. Pt reported he feels positive for her to be able to help someone else. Pt recognized she needs to make sure she also focuses on taking care of herself and setting boundaries when providing support to someone else. Pt stated additional mental health positive as putting her note cards up in her car to remind her of her healthy skills and consequences of drinking alcohol. Pt identified current stressor is not having a job so she has no income. Seemed to benefit from peers providing support. Progress noted in pt ability to actively apply healthy coping skills and maintain sobriety. Continued IOP tx recommended to continue application of healthy coping skills, identify and challenge distorted thoughts, and prevent decompensation. Narrative Note: []
--- NOTE | 2019-02-01 10:20 | BH.SGPN.GN ---
Behaviors/Verbalizations/Mental Status: []Client alert and oriented, neatly dressed and groomed. Eye contact good. Motor activity appropriate. Speech within normal limits. Affect congruent, mood euthymic. Thoughts linear, logical, no signs of hallucinations or delusions. Client Response/Progress/Benefit: []Client responded well to session, attentive and participating in group discussion. Group identified the benefits to setting boundaries as well as the consequences of not setting healthy boundaries. Participated in the discussion of benefits which included; increased confidence, self-love, protection, clearer understanding of one?s values, increased self-awareness, and promotion of growth. Group identified the barriers that keep one from setting boundaries. Client shared ?the more you invest the harder it is to get out of an unhealthy relationship.? Client engaged during discussion of the different types of boundaries and able to identify the benefits of each. Client able to recognize her own mental health suffers when she does not set boundaries with herself and others. Client seemed to benefit from increased awareness of how poor boundaries can negatively impact mental health. Client to continue IOP tx to promote sobriety, increase healthy coping skills, and reduce depression. Narrative Note: []
--- NOTE | 2019-02-01 11:19 | BH.SGPN.GN ---
Behaviors/Verbalizations/Mental Status: [Client alert and oriented, casual dress, hygiene appropriate. Eye contact good. Motor activity appropriate. Speech within normal limits. Affect congruent, mood euthymic. Thoughts linear, logical, no signs of hallucinations or delusions.] Client Response/Progress/Benefit: [Pt responded well to session, active participant and willing to provide insight throughout. Pt did well to engage in the boundary self-assessment activity and worked with group to further process. Pt discussed that she has been becoming much more aware of how her boundaries impact her mental health and relationships with others. Noted that she has historically struggled in asking for help and saying no to relationships that take more than they give to her. Appeared to benefit from group discussion on strategies for further improving personal boundaries. Identified wanting to improve her ability to set and maintain healthy intellectual boundaries with her father as this can at times be a source of tension in the relationship when having differing opinions on a variety of topics. Progress noted in pt ability to identify impact of current boundaries on mental health progress and relationships. Pt to continue IOP tx to maintain gains made, improve anxiety management, and continue to promote healthy change behaviors.] Narrative Note: []
--- NOTE | 2019-02-03 09:05 | BH.SGPN.GN ---
Behaviors/Verbalizations/Mental Status: [Eye contact is good. Motor activity is appropriate. Appearance is casual, grooming appropriate. Speech is Appropriate rate and tone. Mood is euthymic. Affect is congruent. Thoughts are linear and logical. No evidence of psychosis. Reviewed daily check in sheet and pt denies any active SI, plan, or intent.] Client Response/Progress/Benefit: [Pt responded well to session, engaged throughout and open to processing with the group. Pt indicated current emotions include ?awakened and uncomfortable? and discussed that this is due to feeling increasingly capable of taking strides to work on her mental health but is struggling to feel she deserves to be taking time for herself. Was receptive of feedback from group and noted rationally knowing she does deserve to be happy and care for herself. Pt identified additional mental health win as being able to provide ongoing support to a friend and actually be able to view herself as a support. Receptive of feedback provided by group and appearing to benefit from support and structure of group environment. Pt progress in self-report of increasing use of self-care and able to provide increased encouragement to the group. Pt recommended continued IOP tx to prevent decompensation, and promote ongoing application of healthy coping skills, and reduce depression.] Narrative Note: []
--- NOTE | 2019-02-03 10:25 | BH.SGPN.GN ---
Behaviors/Verbalizations/Mental Status: []Client alert and oriented, neatly dressed and groomed. Eye contact good. Motor activity appropriate. Speech within normal limits. Affect congruent, mood euthymic. Thoughts linear, logical, no signs of hallucinations or delusions. Client Response/Progress/Benefit: []Client was an active participant AEB client contributing to discussion and listening attentively to others. Client connected with discussion on different types of anxiety, as well as the difference between ?normal? anxiety and anxiety disorders. Client reported that when one feels anxious ?we want to run.? Client gained awareness of personal physical symptoms of anxiety which included: headaches, increased heart rate, lack of focus, and lack of appetite. Client identified avoidance, cancelling, isolation, as safety behaviors she has engaged in that provide short term relief but increase anxiety over time. Client appeared to benefit from gaining insight to safety behaviors and how anxiety manifests itself, as well as harmful impact of safety behaviors on mental health. Client continues to report sobriety and she continues to present with high motivation. Will continue IOP to promote continued skill application, maintain sobriety, and further decrease depression. Narrative Note: []
--- NOTE | 2019-02-03 11:25 | BH.SGPN.GN ---
Behaviors/Verbalizations/Mental Status: []Client alert and oriented, casual in appearance. Eye contact good. Motor activity appropriate. Speech within normal limits. Affect congruent, mood anxious. Thoughts linear, logical, no signs of hallucinations or delusions. Client Response/Progress/Benefit: []Pt a passive participant during discussion, providing limited input to discussion. Pt able to connect with the discussion reviewing three categories of skills for managing anxiety which included mind-based, body-based, and self-soothing. Contributed ideas to group brainstorming various skills within the different categories. Pt identified willing to practice the following relaxation skills to help reduce anxiety: meditation and music. Pt seemed to benefit from increased awareness of healthy skills to manage anxious symptoms and identifying skills willing to practice outside treatment environment. Progress noted with pt maintaining sobriety, increased use of healthy skills, and reporting improved mood. Recommended to continue IOP level of care to continue use of healthy coping skills, identify and challenge distorted thoughts, and prevent decompensation. Narrative Note: []
--- NOTE | 2019-02-05 11:15 | BH.SGPN.GN ---
Behaviors/Verbalizations/Mental Status: []Client alert and oriented, casual in appearance. Eye contact good. Motor activity appropriate. Speech within normal limits. Affect congruent, mood euthymic. Thoughts linear, logical, no signs of hallucinations or delusions. Client Response/Progress/Benefit: []Client was an active participant in group discussion, contributing to discussion and listened attentively to others. Completed worksheet and willing to share with the group. Client reported believes she is between chapters 3 and 4? as client shared she is working on using her coping skills more consistently and avoiding going back to habitual maladaptive coping. Client shared to get to the next chapter she is willing to attend scheduled meetings and appointments each week. Pt stated she will also schedule a hangout session with one friend at least once a week. Benefited from group by identifying thoughts and behaviors that have kept her stuck and developing plan to promote progress. Will continue in IOP to increase consistent utilization of healthy coping, promote gains, and prevent decompensation. Narrative Note: []
--- NOTE | 2019-02-08 09:05 | BH.SGPN.GN ---
Behaviors/Verbalizations/Mental Status: [] Eye contact is good. Motor activity is appropriate. Appearance is casual. Speech is Appropriate. Mood is anxious. Affect is congruent. Thoughts are linear and logical. No evidence of psychosis. Reviewed daily check in sheet and no reports of suicidal ideations or intent. Client Response/Progress/Benefit: [] Pt was an active participant in group discussion. Emotion for today is anxious. Shared that she has a job interview this afternoon. Discussed why this is beneficial to her stating its a win on so many different levels. She is anxious however has prepared her answers for possible difficult questions. Proud of her self for applying and setting up the interview. Hx of self-sabotaging behaviors which she has not done as well. Another positive is that she has reached out to support and not isolating. Progress noted per pt report. Utilizing skills. Sober. Hopeful about the future. Benefited from group feedback, support, and encouragement. Will continue in IOP to maintain gains, improve daily functioning, and increase healthy coping skills. Narrative Note: []
--- NOTE | 2019-02-08 10:13 | BH.SGPN.GN ---
Behaviors/Verbalizations/Mental Status: [Client alert and oriented, casually dressed and groomed. Eye contact good. Motor activity appropriate. Speech within normal limits. Affect congruent, mood euthymic. Thoughts linear, logical, no signs of hallucinations or delusions. ] Client Response/Progress/Benefit: [Client was attentive and actively engaged throughout. Participated in discussion of the quote and shared that making changes in direction is necessary, because ?If you keep going down the same path, you will end up in the same place?. Provided an example of how habit impacted her ability to quit drinking in the past and that it took change for her to be able to stop doing so. The group worked together to identify barriers that keep one from choosing a new and healthier path to mental wellness which included; unhealthy habits, fear of failure, fear of the unknown, apathy, procrastination, lack of awareness, and negative thinking. Attentive during psychoeducation on the chapters of life, providing insight to distinguishing factors in each chapter. Benefited from increased awareness and education on barriers to choosing new wellness paths and chapters of life. Progress noted in pt ongoing ability to utilize healthy means of coping and continue to manage mental health sx. Will continue IOP tx to further reduce anxiety and depression, promote healthy coping, while improving client?s ability to function at baseline.] Narrative Note: []
--- NOTE | 2019-02-08 10:15 | BH.SGPN.GN ---
Behaviors/Verbalizations/Mental Status: [Client alert and oriented, casually dressed and appropriately groomed. Eye contact good. Motor activity appropriate. Speech within normal limits. Affect congruent, mood euthymic. Thoughts linear, logical, no signs of hallucinations or delusions.] Client Response/Progress/Benefit: [Client active participant in group AEB providing input, actively listening, as well as taking notes throughout. Group worked together to identify barriers to making changes or taking action in their lives which included: fear of the unknown, fear of failure, comfort zone, denial of need to change, and lack of self-awareness. Group also identified the benefits of taking action which included; increased hope and confidence, improved mental health, no longer feeling ?stuck? or stagnant, and personal growth. Client identified personal areas she would like to take back control of to include: low self-esteem, negative self-talk, desire for other?s acceptance, reassurance seeking, and self-doubt. Benefited from group through increased awareness of personal areas she wants to improve and benefits to taking action towards mental wellness. Progress noted in personal reflection of areas she would benefit from making changes for her mental health. Pt is recommended continued IOP level of care to improve mood stability, promote consistent application of healthy coping skills, and prevent decompensation.] Narrative Note: []
--- NOTE | 2019-02-08 11:20 | BH.SGPN.GN ---
Behaviors/Verbalizations/Mental Status: []Client alert and oriented, neatly dressed and groomed. Eye contact good. Motor activity appropriate. Speech within normal limits. Affect congruent, mood euthymic, anxious. Thoughts linear, logical, no signs of hallucinations or delusions. Client Response/Progress/Benefit: []Client was an active participant AEB client participating in discussion and taking notes throughout session. Client attentive and contributing to discussion of the different zones of taking action as well as the pros and cons of each. Client agreed with peers that to grow and improve mental health, one must step out of their comfort zone, but not take on too much at once. Client completed worksheet in which she identified a problem area to focus on, a SMART goal to help work on problem area, and identify additional supports needed to be successful. Client identified she wants to reduce negative self-talk. Client identified a small goal which is to spend 30 minutes in self-care at the end of each day for a week. Client stated additional supports needed to be successful with goal which included: alarm, visual cues, and having a variety of self-care activities to pick from. Appeared to benefit from creating a small goal to help client reduce negative self-talk. Will continue IOP tx to maintain sobriety, reduce negative thinking, and improve daily functioning. Narrative Note: []
--- NOTE | 2019-02-10 09:05 | BH.SGPN.GN ---
Behaviors/Verbalizations/Mental Status: []Client alert and oriented, neatly dressed and groomed. Eye contact good. Motor activity appropriate. Speech within normal limits. Affect congruent to mood-tearful, mood dysthymic. Thoughts linear, logical, no signs of hallucinations or delusions. Reviewed client?s symptom tracker, no risk for suicidal ideation, plan, or intent as of 02/10/19. Client Response/Progress/Benefit: []Client responded well to session, receptive to feedback and attentive throughout session. Client reports feeling ?overwhelmed by emotions, but it?s positive? today. Client stated the holidays have become a major stressor for client and shared ?everything reminds me of my son right now.? Client reported this has kept client from decorating for [place]. Client received supportive feedback from peers who encouraged client to use opposite action. Client able to recognize the benefits of using opposite action instead of isolating and avoiding. Client shared tonight she plans to have dinner with a friend and go to choir practice. Client?s mental health wins today included going to a job interview on Friday despite being anxious and coping with her father and change yesterday. Client appeared to benefit from receiving feedback from peers and reviewing healthy coping skills. Progress noted as client continues to report sobriety and she has been more open about her feelings. Will continue IOP tx to prevent decompensation during the holidays and to promote use of healthy coping skills. Narrative Note: []
--- NOTE | 2019-02-10 10:27 | BH.SGPN.GN ---
Behaviors/Verbalizations/Mental Status: [Client alert and oriented, casually dressed and appropriately groomed. Eye contact good. Motor activity appropriate. Speech WNL. Affect congruent, mood euthymic. Thoughts linear, logical, no signs of hallucinations or delusions. ] Client Response/Progress/Benefit: [Client active participant as evidenced by providing input throughout discussion and appeared to listen attentively to others. Client agreed that she experiences automatic thoughts and often these thoughts can be negative. Indicated that ?sometimes we take positive things in life and distort them?. Client connected with the discussion about how distorted thought patterns can reinforce mental health symptoms. Client connected with others that she can quickly fall into a pattern of disqualifying the positives in a situation which can lead her to want to give up or have negative thoughts about herself. Client sheared an example thought of ?No one will ever hire me because I have any good qualifications?. Client reported she recognizes cognitive distortions can lead to increased depression, limit personal growth and impact relationships. Appeared to benefit from increasing awareness of cognitive distortions and how they can impact emotions and behaviors. Client to continue IOP to stabilize moods, improve emotional regulation, and prevent decompensation.] Narrative Note: []
--- NOTE | 2019-02-10 11:25 | BH.SGPN.GN ---
Behaviors/Verbalizations/Mental Status: []Client alert and oriented, neatly dressed and groomed. Eye contact good. Motor activity appropriate. Speech within normal limits. Affect congruent, mood dysthymic. Thoughts linear, logical, no signs of hallucinations or delusions. Client Response/Progress/Benefit: []Client?engaged during session AEB client providing contributions throughout group session and engaging in activity. Client worked cooperatively with peers during group activity. Client acknowledged the importance of needing to have awareness and put forth the effort to challenge, reframe, and replace distorted thought patterns. Client worked cooperatively with group to challenge distorted thoughts and was attentive in learning strategies to combat distortions. Client reported a distorted thought she will practice reframing is I'll never be able to live in my house again. Client seemed to benefit from increased awareness of cognitive distortions and practicing reframing distorted thoughts. Client to continue IOP level of care to challenge negative thoughts that reinforce anxiety, continue use of healthy coping and prevent decompensation. Narrative Note: []
--- NOTE | 2019-02-12 09:00 | BH.SGPN.GN ---
Behaviors/Verbalizations/Mental Status: [] Eye contact is good. Motor activity is appropriate. Appearance is casual. Speech is Appropriate. Mood is anxious. Affect is congruent. Thoughts are linear and logical. No evidence of psychosis. Reviewed daily check in sheet and no reports of suicidal ideations or intent. Client Response/Progress/Benefit: [] Pt was an active participant in group discussion. Emotion for today is optimistic. Daily symptom tracker notes 3/5 for anxiety and agitation. Some stress with the upcoming holiday however she is staying active and helping her parents preparing the meal which she notes is a positive. Urges to isolate. Another positive is that she was offered a job. Fearful that she will self-sabotage. Discussed emotions related to holiday mainly discussing grief with recent loss of her son and memories. Progress noted. Benefited from group support, encouragement, and feedback. Will continue in IOP to prevent decompensation, support, and to increase healthy coping skills. Narrative Note: []
--- NOTE | 2019-02-12 10:10 | BH.SGPN.GN ---
Behaviors/Verbalizations/Mental Status: []Client alert and oriented, casual dress and good hygiene. Eye contact good. Motor activity appropriate. Speech within normal limits. Affect congruent, mood anxious. Thoughts linear, logical, no signs of hallucinations or delusions. Client Response/Progress/Benefit: Client was an active participant in group discussion and activity. Attentive during psychoeducation and commenting on the quote. Client reported ?it can be hard to make change if others around you aren?t changing?. Worked with the group to identify benefits to making changes in our lives which included: increasing resilience, setting and accomplishing goals, and seeing setbacks as a learning tool. Group then identified barriers to change or what keeps us from making changes which included: uncomfortable emotions, low motivation, lack of support, closed mindedness, high expectations, and stubbornness. Client participated along with group in activity where they identified and discussed the emotions related to change. Client was attentive during psychoeducation on the change process. Benefited from increased awareness and understating of emotions, benefits, and barriers related to change. Will continue IOP tx to prevent decompensation, stabilize moods and challenge distorted thoughts.
--- NOTE | 2019-02-12 11:11 | BH.SGPN.GN ---
Behaviors/Verbalizations/Mental Status: []Client alert and oriented, neatly dressed and groomed. Eye contact good. Motor activity appropriate. Speech within normal limits. Affect congruent, mood euthymic. Thoughts linear, logical, no signs of hallucinations or delusions. Client Response/Progress/Benefit: []Client was an active participant AEB client providing input during discussion and engaging in group activity. Client participated in the activity and processed emotions and barriers associated with making change. Client reported making change involves being patient and understanding that setbacks happen. Client appeared to connect with discussion on weighing the pros and cons associated with change and benefited from learning to do so through use of decisional balance sheet. Identified she is currently in the action stage of change. Client stated she is consistently combating negative thoughts and she is continuing to attend AA meetings. Client able to identify the pros of practicing positive thinking which included; reduced depression, improved relationships, and being a better role model to others. Progress noted in client?s report of ongoing sobriety and application of coping skills. Recommended continued IOP tx to further maintain sobriety and prevent decompensation of depressive symptoms during the holidays as it is a hard time for client. Narrative Note: []
--- NOTE | 2019-02-12 14:23 | BH.MDN ---
Multi-Disciplinary Note - Note 30-min Individual Time Started:: 12:05 Date: 02/12/19 Purpose of session/treatment goals addressed:: Purpose of session was to assess pt's current symptoms and stressors. Other topics included: reviewing progress, addressing worries about upcoming holiday, and reviewing skills and supports can utilize this weekend. Eye Contact:: Good Motor Activity:: Appropriate Appearance:: Casual Speech:: Appropriate Mood:: Euthymic, Other - slightly sad when talking about upcoming holiday. Affect:: Congruent Thoughts:: Linear, Logical, No evidence of hallucinations/delusions noted - 4 Time Stopped:: 12:25
--- NOTE | 2019-02-15 09:02 | BH.SGPN.GN ---
Behaviors/Verbalizations/Mental Status: [Eye contact is good. Motor activity is appropriate. Appearance is casual, grooming appropriate. Speech is Appropriate rate and tone. Mood is anxious, dysthymic. Affect is congruent. Thoughts are linear and logical. No evidence of psychosis. Reviewed daily check in sheet and pt denies any active SI, plan, or intent as of this date.] Client Response/Progress/Benefit: [Pt responded well to session, engaged throughout and open to processing with the group. Pt indicated current emotion as ?cautiously optimistic? and discussed that this is due to continuing to feel she is making progress but is anxious about her ability to maintain gains throughout the holiday season. Pt discussed that the holidays are always a stressor and have previously been a time in which she has relapsed. Pt displayed insight into the importance of practicing self-care techniques and being compassionate with herself. She was receptive of feedback from group and noted feeling hopeful that she can continue to make strides forward. Pt identified mental health wins as ?making it through the weekend? and reaching out to a support when struggling. Able to identify when using minimization and did well to acknowledge accomplishments. Additional win identified as getting out and going to gnosticism rather than isolate. Progress in self-report of increased self-awareness and reduced isolation. Pt recommended continued IOP tx to prevent decompensation, and promote ongoing application of healthy coping skills, and maintain gains made.] Narrative Note: []
--- NOTE | 2019-02-15 10:12 | BH.SGPN.GN ---
Behaviors/Verbalizations/Mental Status: []Client alert and oriented, casually dressed and groomed. Eye contact good. Motor activity appropriate. Speech within normal limits. Affect constricted, mood dysthymic. Thoughts linear, logical, no signs of hallucinations or delusions. Client Response/Progress/Benefit: []Client receptive to session, provided input and actively listening throughout discussion on stress. Able to brainstorm with the group positive and negative aspects of stress on physical and mental health. Client shared that stress can occur when we are unable to accept things out of our control.? Client participated in identifying current stressors impacting mental health. Client?s current stressors included; holidays, lack of self-care, and managing her mental health symptoms. Client noted that her most significant stressor currently is the holidays. Client reports belief that her stress jar is ?pretty full,? but not overflowing. Client stated when her stress becomes too high client will shut down and stop taking care of herself. Appeared to benefit from gaining awareness of own current stressors and learning about the impact stress has on overall wellbeing. Progress noted as shown by client?s report of ongoing sobriety and ability to recognize warning signs early. Recommend continued IOP tx to improve mood stability and to help client cope through the holidays. Narrative Note: []
--- NOTE | 2019-02-15 11:15 | BH.SGPN.GN ---
Behaviors/Verbalizations/Mental Status: []Client alert and oriented, casually dressed and groomed. Eye contact good. Motor activity appropriate. Speech within normal limits. Affect constricted, mood dysthymic. Thoughts linear, logical, no signs of hallucinations or delusions. Client Response/Progress/Benefit: []Pt engaged in session as evidenced by pt listening attentively to others, giving ideas during activity, and providing input throughout session. Pt worked with the group to complete the challenge activity. Pt actively listening during discussion about the 4 A's of managing stress. Identified she will focus on adapting her definition and view of her past failures. Pt recognizes if she continues to beat herself up about her past failures it will increase stress level. Pt seemed to benefit from increased awareness of the impact of stress on mental health and increasing repertoire of stress management strategies. Pt to continue in IOP to prevent decompensation, increase consistent application of healthy coping skills, and challenge distorted thoughts. Narrative Note: []
--- NOTE | 2019-02-15 14:03 | BH.COMM_ITS ---
Communication Note - Communication with Client Communication Note: Checked in with pt to develop self-care plan to help pt get through the upcoming holiday. Pt stated she is feeling really sad because missing her son. Pt reported she has been more tearful lately due to grief. Pt worked with pt to identify self-care plan for today, tomorrow and Friday. Pt stated tonight she will color, journal and listen to music. Pt reported tomorrow she will call friends for support. Pt stated Friday she will go to an AA meet ing for support. Pt reported she is sad but knows she can get through this. Plan is to meet to develop weekend plan because pt identifies upcoming weekend to be greatest concern. Pt stated her brother will be in town with his kids which will make her sad because she doesn't have her son around.
--- NOTE | 2019-02-18 09:02 | BH.SGPN.GN ---
Behaviors/Verbalizations/Mental Status: [Eye contact is good. Motor activity is appropriate. Appearance is casual, grooming appropriate. Speech is Appropriate rate and tone. Mood is anxious, euthymic. Affect is congruent. Thoughts are linear and logical. No evidence of psychosis. Reviewed daily check in sheet and pt denies any active SI, plan, or intent as of this date.] Client Response/Progress/Benefit: [Pt responded well to session, engaged throughout and open to processing with the group. Pt indicated current emotion as ?cautiously optimistic? 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 Pt further indicated that returning to work is a stressor, but that is a healthy and positive form of stress, noting that she has been reminding herself not to catastrophize. Pt discussed that although the holidays are always a stressor, she was able to put several protective factors in place and maintain sobriety as a result. Pt displayed insight into the importance of scheduling therapy before and after the holiday, indicating that knowing she has support aided in preventing her from relapsing into unhealthy decision making. Expressed this as a major mental health win. Additional win identified as challenging her use of personalization when discussing her new job with her brother. Progress in self-report of increased self-awareness and improved ability to identify and challenge distorted thought patters. Pt recommended continued IOP tx to prevent decompensation, promote ongoing application of healthy coping skills, and further reduce depression.] Narrative Note: []
--- NOTE | 2019-02-18 10:05 | BH.SGPN.GN ---
Behaviors/Verbalizations/Mental Status: []Client alert and oriented, casually dressed and groomed. Eye contact good. Motor activity appropriate. Speech within normal limits. Affect congruent, mood euthymic. Thoughts linear, logical, no signs of hallucinations or delusions Client Response/Progress/Benefit: []Client responded well to session, active and providing good insight to discussion. Client connected with the group topic of crisis and did well to work with group to define crisis. Client identified examples of potential crisis to include loss of a loved one, relationship problems, and disasters. Connected with discussion on how coping with external crisis by using unhealthy coping skills could lead to personal crisis. Group identified unhealthy coping skills to include; using substances, sleep, pushing away supports, and avoiding responsibilities. Client shared it is possible to prevent an external crisis from becoming an internal crisis, but it takes awareness of warning signs. Group identified warning signs for crisis which included; negative thoughts, crying uncontrollably, numbing, lack of motivation, and feeling guilty for no reason. Client completed the personal warning signs worksheet and identified crisis warning signs to include; unusual drop in functioning, negative thinking, and increased guilt. Benefited from group by increasing awareness of crisis and personal warning signs. Progress noted as client continues to report sobriety from alcohol and reports using healthier coping skills more frequently. Will continue IOP tx to prevent decompensation during the holidays and to promote daily functioning. Narrative Note: []
--- NOTE | 2019-02-18 11:12 | BH.SGPN.GN ---
Behaviors/Verbalizations/Mental Status: []Client alert and oriented, casually dressed and groomed. Eye contact good. Motor activity appropriate. Speech within normal limits. Affect congruent, mood euthymic, slightly sad. Thoughts linear, logical, no signs of hallucinations or delusions. Client Response/Progress/Benefit: []Client responded well to session as evidenced by client listening attentively to others and sharing when prompted. Client identified her warning signs for crisis and gained further awareness of her earliest warning signs. Client appeared to connect that awareness of these warning signs can prevent further crisis and help client utilize healthy coping skills to break the cycle. Client created a crisis action plan to help client better manage warning signs for crisis. Client?s plan included: journaling, reaching out to support, using a thought log, scheduling activities with others, Client selected tangible items for crisis survival kit that will help her remember these crisis interventions. Client appeared to benefit from creating a crisis action plan and increasing her self-awareness. Client to continue IOP to prevent decompensation, continue use of healthy coping and maintain sobriety. Narrative Note: []
--- NOTE | 2019-02-19 09:00 | BH.SGPN.GN ---
Behaviors/Verbalizations/Mental Status: []Client alert and oriented, casually dressed and groomed. Eye contact good. Motor activity appropriate. Speech within normal limits. Affect congruent-tearful, mood depressed Thoughts linear, logical, no signs of hallucinations or delusions. Reviewed client?s symptom tracker, no risk for suicidal ideation, plan, or intent as of 02/19/19 Client Response/Progress/Benefit: []Client responded well to session, receptive to feedback from peers. Client reports feeling ?spent? today due to grief associated with the holidays. Client became tearful and reported that she has been thinking a lot about her son who . Client. Client shared she has been going to grief counseling which has been helpful. Client?s grief counselor suggested that client create a shadow box for her son and fill it with memories. Client plans to do this which is significant progress for client because in the past client would avoid things that reminded her of her son. Client reported one of her mental health wins today is that she received a message from her son?s best friend. Client shared she was honest about her feelings and the support she needs. Client stated it was a good conversation and they plan to have dinner to reflect on her son?s life. Client?s stressor today is family time around the holidays. Appeared to benefit from receiving supportive statements from peers and processing her grief. Will continue IOP tx to prevent decompensation over the s and promote sobriety. Narrative Note: []
--- NOTE | 2019-02-19 10:15 | BH.SGPN.GN ---
Behaviors/Verbalizations/Mental Status: [Client alert and oriented, casually dressed and groomed. Eye contact good. Motor activity appropriate. Speech within normal limits. Affect congruent, mood euthymic. Thoughts linear, logical, no signs of hallucinations or delusions. ] Client Response/Progress/Benefit: [Client was an active participant AEB providing input throughout session and appearing engaged. The group discussed the quote and how the emotion anger is not good or bad, but one can respond to anger in healthy or harmful ways. Client listened as the group worked to define anger and its causes, as well as the internal and external impacts of anger. Group identified potential consequences of unhealthy management of anger to include: losing relationships, guilt, internalizing emotions, lashing out, and worsening mental health symptoms. Client identified underlying factors of her anger which included: fear of failure, loss, high expectations, feeling tricked, and past trauma. Client indicated that shutting down or lashing out are common responses she has when feeling angry. Benefited from group by increasing awareness of the negative impacts of unmanaged anger and underlying factors that contribute to her personal anger. Progress noted given pt increased engagement and skill application. Will continue IOP tx to reduce depression, promote healthy change behaviors, and improve mood stability.] Narrative Note: []
--- NOTE | 2019-02-19 11:15 | BH.SGPN.GN ---
Behaviors/Verbalizations/Mental Status: []Client alert and oriented, casual dress, hygiene tended to. Eye contact good. Motor activity appropriate. Speech within normal limits. Affect congruent, mood euthymic Thoughts linear, logical, no signs of hallucinations or delusions. Client Response/Progress/Benefit: []Pt active participant throughout AEB engagement in both activity and discussion potions of session. Pt did well to challenge herself to complete the group activity and incorporate anger management/emotion regulation skills in order to do so. Pt worked with the group to identify the various barriers faced in the activity as well as skills used to successfully complete the task at hand without becoming dysregulated or uncontrollably angry. Pt stated she could connect with others that sometimes she fears how she will react to certain situations. Brainstormed with group healthy coping skills to help manage anger which included: listening to music, changing environment, breathing, coloring, walking, exercise, and petting an animal. She appeared to benefit from brainstorming with the group potential strategies to manage anger in healthy ways. Pt identified plans to begin challenging negative thoughts, using humor, and having self-compassion as a means of coping with anger. Recommended continued IOP to maintain gains, increase consistent application of healthy skills, and prevent decompensation. Narrative Note: []
--- NOTE | 2019-02-22 08:02 | BH.MDN_ITS ---
Multi-Disciplinary Note - Note 30-min Individual Time Started:: 09:49 Date: 02/19/19 Purpose of session/treatment goals addressed:: Purpose of session was to assess pt's current symptoms and stressors. Session focused on creating weekend plan to help pt maintain progress and maintain sobriety. Eye Contact:: Good Motor Activity:: Appropriate Speech:: Appropriate Mood:: Dysthymic Affect:: Congruent Thoughts:: Linear, Logical, No evidence of hallucinations/delusions noted Staff Interventions:: Therapist used open ended questions to elicit pt's current symptoms and stressors. Therapist reviewed how holiday went, eliciting positives. Therapist collaborated with pt to identify plan for weekend to help maintain stability. Provided support by using active listening and validating emotions. Client Response:: Pt reported she was successfully able to get through the holiday. Pt stated she was missing her son on , but was able to remember him by lighting a candle at dinner. Pt reported she did not follow through with self-care plan of journaling, coloring and listening to music. Pt stated she did go to [place] [employer] service to sing in the choir. Pt reported she left after singing because the sermon was triggering her grief. pt stated she was able to have self-compassion about leaving early instead of beating herself up over it. Pt reported her brother and his kids will be visiting tomorrow which makes her anxious because it makes her miss her son more. Pt stated her plan for this weekend is to attend two meetings tomorrow and go to [employer] on Friday. Pt reported she will practice self-care by journaling, listening to music and coloring throughout this weekend. Pt recognizes she has not been following through with self-care activites besides attending AA meetings. Pt stated she knows she needs to make herself get into the routine of engaging in self-care. Pt reported if she is feeling overwhelming emotions this weekend she will reach out to a support person and go for a walk. Risks/Concerns:: Denies suicidal ideation, plan or intention to date. Progress Toward Goals/Plan:: Progress noted with pt being able to successfully make it through the holiday without using alcohol as her coping skill. Pt struggling with engaging in self-care activities despite recognizing the importance of doing so. Pt is recommended to contiue IOP level of care to maintain gains, maintain sobriety, increase consistent application of skills and prevent decompensation. Time Stopped:: 10:06
--- NOTE | 2019-02-22 09:05 | BH.SGPN.GN ---
Behaviors/Verbalizations/Mental Status: [ Eye contact is fair to good, eyes appearing red. Motor activity is appropriate. Appearance is casual, grooming appropriate. Speech is Appropriate rate and tone, at times hiccuping while speaking and interrupting throughout discussion. Mood is euthymic. Affect is congruent. Thoughts are linear and logical, at times appearing to make loose associations with topics discussed by fellow participants. No evidence of psychosis. Reviewed daily check in sheet and pt denies any active SI, plan, or intent as of this date. ] Client Response/Progress/Benefit: [Pt responded well to session, engaged throughout and open to processing with the group. Pt appeared distracted by her own thoughts at times and often made off topic comments or interrupted fellow participants with comments. Pt indicated current emotion as ?relieved? and discussed that this is due to successfully managing the holiday without becoming overwhelmed or reverting to unhealthy coping mechanisms. Pt identified this as a mental health win. Additional win described as being able to spend some time connecting with her middle brother whom she has not historically had much of a relationship with. Pt appearing to get confused at times about the date, often referring to [place] despite attending the program following the holiday last week. Current stressor identified as upcoming start date for her newly acquired job with [employer], however indicates a desire to find a profession more in line with her interests. Progress variable, pt self-report of increased ability to cope with overwhelming emotions and grief related trigger, however appearing to experience some difficulties in consistent application of self-care related activities and communicating with supports which may impact progress levels. Pt recommended continued IOP tx to prevent decompensation, promote ongoing application of healthy coping skills, and maintain gains made] Narrative Note: []
--- NOTE | 2019-02-22 11:15 | BH.SGPN.GN ---
Behaviors/Verbalizations/Mental Status: []Client alert and oriented, disheveled appearance. Eye contact good. Motor activity appropriate. Speech normal rate, but interrupting more than usual. Affect congruent, mood irritable. Thoughts linear, logical, no signs of hallucinations or delusions. Client Response/Progress/Benefit: []Client willing to participate in activity and providing feedback. Client attempted to give the group feedback, but became easily agitated. Client acknowledged that the group?s poor communication hindered their ability to succeed. Client engaged in discussion reviewing positive and negative forces impacting life and mental wellness. Client identified personal positive forces that aid in progressing toward mental health goals include: self-esteem, positive supports, self-care, beliefs, and willingness to change. Client indicated personal negative forces to include: people?s reactions, holidays and hard anniversaries, mental health, relationships, and self-esteem. Client seemed to benefit from increased awareness of personal positive and negative forces in life and impact they have on mental health and wellness. Progress noted as client reports being able to make it through the holidays. Will continue IOP tx to prevent decompensation, maintain sobriety, and increase use of healthy coping skills. Narrative Note: []
--- NOTE | 2019-02-22 11:15 | BH.SGPN.GN ---
Behaviors/Verbalizations/Mental Status: []Eye contact is good. Motor activity is appropriate. Appearance is casual. Speech is Appropriate, rambling at times. Mood is euthymic. Affect is full. Thoughts are linear and logical. No evidence of psychosis. Client Response/Progress/Benefit: []Pt was an active participant in discussion and listened attentively to others. Group worked together to come up with common negative forces in their lives which can hold them back from growth. Negative forces included: toxic relationships, negative thoughts, low motivation, and poor boundaries. Group then worked together to identify common positive forces which help us grow. Theses included: Healthy coping skills, positive support, self-care, positive self-talk and challenging negative thoughts. Pt stated personal growth is a choice because if we don't choose to make changes then will stay stuck. Pt was attentive during psychoeducation on the importance of utilizing many aspects of positive forces to help one grow. During activity pt struggled with staying focused and serious during activity, making unhelpful comments at times. Benefited from group with increased insight and awareness on the impact of negative and positive forces on mental wellness. Narrative Note: []
--- NOTE | 2019-02-23 09:02 | BH.SGPN.GN ---
Behaviors/Verbalizations/Mental Status: []Client alert and oriented, casually dressed and groomed. Eye contact good. Motor activity appropriate. Speech within normal limits. Affect congruent, mood euthymic. Thoughts linear, logical, no signs of hallucinations or delusions. Reviewed client?s symptom tracker, no risk for suicidal ideation, plan, or intent as of 02/23/19. Client Response/Progress/Benefit: []Client responded well to session, attentive and participating throughout session. Client reports feeling ?stable? today which is a significant improve for client as she has faced numerous stressors lately. Client stated she was able to manage her emotions while her brother and his ?perfect children? visited. In the past this would have been a trigger for drinking and depression. Client was also able to manage her emotions when her mother fell over the weekend. Client shared reminding herself that ?I don?t want to go back? helped client make healthy choices in coping. Appeared to benefit from reflecting on her application of coping skills to prevent setbacks this weekend. Will continue IOP tx to promote sobriety, maintenance of healthy coping skills, and improve emotional regulation. Narrative Note: []
--- NOTE | 2019-02-23 10:17 | BH.SGPN.GN ---
Behaviors/Verbalizations/Mental Status: []Eye contact is good. Motor activity is appropriate. Appearance is casual. Speech is Appropriate. Mood is dysthymic, anxious. Affect is constricted. Thoughts are linear and logical. No evidence of psychosis. Client Response/Progress/Benefit: []Participated throughout group discussions, providing input and listening attentively. Attentive during psychoeducation portion reviewing fixed mindset. Pt worked with group to identify how a fixed mindset can impact our mental health which included: decreased hope, giving up when faced with a setback, not asking for help, low self-esteem, and isolation/avoidance. Pt identified one fixed thought she has is, I?m never going to be successful if I can?t get a job in my field and identified this fixed thought makes her not want to seek gainful employment as she begins to think ?what?s the point?. Shared she is beginning to combat this and recognizes the fixed thought results in her maintaining symptoms of depression and has led to unhealthy coping in the past. Benefited from group by increasing awareness of how one's mindset impacts mental health. Pt to continue IOP level of care to increase utilization of healthy coping skills, challenge distorted thoughts, and prevent decompensation. Narrative Note: []
--- NOTE | 2019-02-23 11:10 | BH.SGPN.GN ---
Behaviors/Verbalizations/Mental Status: []Client alert and oriented, casually dressed and groomed. Eye contact good. Motor activity appropriate. Speech within normal limits. Affect congruent to topic being discussed, mood euthymic. Thoughts linear, logical, no signs of hallucinations or delusions. Client Response/Progress/Benefit: []Client engaged during discussion and listened attentively to peers. Client did well to apply cognitive restructuring to reframe previously identified fixed thoughts, transforming her fixed thought from previous group to a growth thought of ?I can make positive changes in my life to make a new routine that will help my move forward.? Client shared she can spend more time with friends and develop new interests as ways to put into action her growth mindset thought. Client participated as the group brainstormed strategies to promote growth-mindset thinking. Benefitted from discussing benefits of growth mindset and brainstorming strategies for prompting growth-mindset. Client displaying progress with continued use of healthy skills outside of tx environment. Will continue IOP tx to promote gains, continue to challenge distorted thoughts and prevent decompensation. Narrative Note: []
== END 2019-02-23 23:59 ==
LOC: BHIOP 09:00
PROVIDERS: Family Provider Family Medicine; PCP Family Medicine; Referring Provider Psychiatry & Neurology Psychiatry; Visit Provider Psychiatry & Neurology Psychiatry
DX: F33.1 Major depressive disorder, recurrent, moderate (principal); F41.9 Anxiety disorder, unspecified; F43.10 Post-traumatic stress disorder, unspecified; Z72.89 Other problems related to lifestyle; E03.9 Hypothyroidism, unspecified; I10 Essential (primary) hypertension; Z79.899 Other long term (current) drug therapy
CPT/HCPCS: 99213; H0035; H2012; H2020; 90832

== ENCOUNTER 2019-03-02 09:00 | Outpatient (RCR) | payer MEDICAID, SELFPAY ==
[2018-12-23 14:23] VITALS: BMI 39.7
--- NOTE | 2019-03-02 21:07 | BH.MDN ---
Multi-Disciplinary Note - Note 30-min Individual Time Started:: 10:10 Date: 03/02/19 Purpose of session/treatment goals addressed:: Purpose of session was to assess pt's current symptoms and stressors. 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 Eye Contact:: Good Motor Activity:: Appropriate Appearance:: Casual Speech:: Appropriate Mood:: Euthymic, Anxious Affect:: Full Thoughts:: Linear, Logical, No evidence of hallucinations/delusions noted Staff Interventions:: Therapist used open ended questions to elicit pt's current symptoms and stressors. Therapist processed what led up to pt quitting her job after four days. Discussed upcoming job interview for today. Therapist reviewed importance of engaging in self-care and go to her AA meetings. Provided support by using active listening and validating emotions. 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 Pt reported she didn't realize how physically demanding the job would be for her. Pt stated she chose to quit because she couldn't make it through a four hour shift due to back pain. Pt stated the job also was making her miss pentecostalism which is a signicant source of support. pt reported she has been hiding from her father that she quit her job. Pt stated she plans to tell him today after her new job interview. Pt reported she hasn't told her father because she doesn't want to disappoint him. 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 Pt reported she recognizes importance of making sure the potential new job doesn't interfere with too many of her AA meetings. Pt stated she knows it's important to continue engaging in self-care or she sill start to decompensate. Pt reported tonight she will engage in a self-care activity after she is done telling her dad about quitting her last job. Risks/Concerns:: denies suicidal ideation, plan or intention to date. Progress Toward Goals/Plan:: Pt showing slight regression in progress AEB pt struggling to maintain a job for longer than 4 days. Progress noted with pt reporting maintaining sobriety despite stressor of quitting her job. Pt continues to struggle with being open and honest with her support people. Pt is to continue IOP to increase consistent application of healthy skills, challenge distorted thoughts and prevent decompensation. Time Stopped:: 10:37
--- NOTE | 2019-03-03 09:05 | BH.SGPN.GN ---
Behaviors/Verbalizations/Mental Status: []Client alert and oriented, neatly dressed and groomed- wearing makeup. Eye contact good. Motor activity appropriate. Speech within normal limits. Affect congruent, mood euthymic. Thoughts linear, logical, no signs of hallucinations or delusions. Reviewed client?s symptom tracker, no risk for suicidal ideation, plan, or intent as of 03/03/19 Client Response/Progress/Benefit: []Client responded well to session, receptive and providing supportive statements. Client reports feeling ?excited? today for multiple reasons. Client shared she went to a job interview in her field and ?got a job on the spot.? 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 Client also stated that she is excited because client has been coping well and client has been practicing maintenance. Client reported that although she is excited about her new job, this is also a stressor because it is a new chapter in her life. Client receptive to feedback from group and able to identify strengths that will promote growth moving forward. Appeared to benefit from reflecting on gains and connecting with peers. Will continue IOP tx to promote gains and increase stress management skills to increase work-related functioning. Narrative Note: []
--- NOTE | 2019-03-03 10:20 | BH.SGPN.GN ---
Behaviors/Verbalizations/Mental Status: [Client alert and oriented, casually dressed and groomed. Eye contact good. Motor activity appropriate. Speech within normal limits. Affect congruent to topic being discussed, mood euthymic. Thoughts linear, logical, no signs of hallucinations or delusions.] Client Response/Progress/Benefit: [Pt active participant AEB pt providing input during discussion and appeared to listen attentively to peers. Pt appeared to connect with others as well as provided insight on the negative impact of defining self by mental illness. Group identified social stigma can come from how the media, our thoughts, and upbringing portray mental illness. Pt shared that societal perception has shifted with time, but it is still viewed negatively. Group identified media and society portray mental health as: dangerous, negative, unworthy, abnormal, and that it means something is wrong with you. Pt reported societal stigma made her feel the need to hide and prevented her from asking for help. Pt seemed to benefit from increased awareness of how societal and internal mental health stigma can impact functioning. Pt progressing with reporting utilization of healthy coping skills outside treatment environment and reported ability to maintain sobriety. Pt to continue IOP level of care to continue use of healthy coping skills, reduce mental health sx severity , and prevent decompensation.] Narrative Note: []
--- NOTE | 2019-03-03 11:20 | BH.SGPN.GN ---
Behaviors/Verbalizations/Mental Status: Client alert and oriented, casually dressed and groomed. Eye contact fair. Motor activity restless. Speech within normal limits. Affect congruent to topic being discussed, mood euthymic. Thoughts linear, logical, no signs of hallucinations or delusions. Client Response/Progress/Benefit: Client responded well to session, engaged in activity and actively listening as well as providing input to discussion. Engaged in activity about facts and statistics of mental illness. Group identified the benefits of addressing stigma which included: increased self-confidence, takes some of the power away from stigma, increases personal and social awareness, and increases validation. Group brainstormed strategies to combat social and perceived stigma which included: education others, no longer using negative labels about mental illness, being open about mental health, and don't reinforce stigma. Client reported she will practice being more open with others about her mental health in an effort to reduce social and perceived mental health stigma. Appeared to benefit from increasing awareness of strategies to combat stigma. Will continue IOP tx to increase consistent application of coping skills, maintain sobriety, and prevent decompensation. Narrative Note: []
--- NOTE | 2019-03-04 09:00 | BH.SGPN.GN ---
Behaviors/Verbalizations/Mental Status: []Eye contact is good. Motor activity is appropriate. Appearance is casual, grooming appropriate. Speech is Appropriate rate and tone. Mood is euthymic, anxious. Affect is congruent, bright. Thoughts are linear and logical. No evidence of psychosis. Reviewed daily check in sheet and pt denies any active SI, plan, or intent as of this date. Client Response/Progress/Benefit: [Pt responded well to session, engaged throughout and open to processing with the group. Pt indicated current emotion as ?excited? and discussed that this is due to being able to secure a job within the field she has been wanting to break into. Pt did well to identify current mental health wins. Indicated a win as taking time to think about what she will need self-care mayes when beginning a new job and ensuring that she has a plan in place. Pt shared that this felt good to know she is going into a career field well prepared. Went on to describe additional win as taking the initiative to reflect upon the progress she has made and give herself some credit for putting in the effort to get where she is at currently. She noted this was empowering and represented beginning a new, healthier, chapter. Current stressor identified as feeling a little worried about being able to balance everything. Did well to challenge distortions related and appeared to benefit from support of the group. Pt displaying progress in ability to apply skills of self-care and thought challenging. Pt recommended continued IOP tx to prevent decompensation, promote ongoing application of healthy coping skills, and maintain gains made.] Narrative Note: []
--- NOTE | 2019-03-04 10:17 | BH.SGPN.GN ---
Behaviors/Verbalizations/Mental Status: []Client alert and oriented, neatly dressed and groomed. Eye contact good. Motor activity appropriate. Speech within normal limits. Affect congruent, mood euthymic. Thoughts linear, logical, no signs of hallucinations or delusions. Client Response/Progress/Benefit: []Client receptive of session, attentive in discussion and activity. Client discussed the quote and shared ?it takes a lot of self-control to manage emotions because it?s not comfortable.? Client reported not being able to manage one?s emotions gives ?other?s power over your emotions? and leads to self-sabotage. Group identified barriers that impact one?s ability to communicate when emotions are high. These barriers included; shutting down, lack of awareness of emotions, mental health symptoms, and not seeing a different perspective. Group identified the benefits of being able to effectively regulate emotions which included; better quality of life, better relationships, less stress, and better communication. Client participated in the activity and did well to regulate her emotions which helped client interact with peers. Client appeared to benefit from increasing awareness of how emotions can impact communication and interactions in one?s life. Progress noted as client continues to report sobriety and an improved mood. Will continue IOP tx to promote gains and improve stress management while client begins a new job. Narrative Note: []
--- NOTE | 2019-03-04 11:21 | BH.SGPN.GN ---
Behaviors/Verbalizations/Mental Status: []Client alert and oriented, casually dressed and groomed. Eye contact good. Motor activity appropriate. Speech within normal limits. Affect congruent to topic being discussed, mood euthymic. Thoughts linear, logical, no signs of hallucinations or delusions. Client Response/Progress/Benefit: []Client attentive and contributing to discussion. Attentive during psychoeducation on 4 zones of regulation. Client able to identify how she feels in each zone as well as how she acts in each zone. Client able to identify what behaviors she exhibits when in the different emotional zones. Client also able to identify coping skills she can use to support herself in each zone which included: doing something she enjoys, making a to-do list, being social, journaling, thought challenge, and personal check-in. Client stated she wants to focus on the skill of assessing her emotions and situation so she can improve her response to a situation. Benefited from group from increased education on zones of regulation or stages of alertness for emotions and healthy coping skills to use for each zone. Will continue IOP tx to maintain gains, prevent decompensation, and continue utilization of healthy skills. Narrative Note: []
--- NOTE | 2019-03-05 09:05 | BH.SGPN.GN ---
Behaviors/Verbalizations/Mental Status: [] Eye contact is good. Motor activity is appropriate. Appearance is casual. Speech is Appropriate. Mood is euthymic. Affect is full. Thoughts are linear and logical. No evidence of psychosis. Reviewed daily check in sheet and no reports of suicidal ideations or intent. Client Response/Progress/Benefit: [] Pt was an active participant in group discussion. Emotion for today is content. Identified mental health wins which involved progress in her grief counseling. States that her grief therapist and her were able to identify the progress that she has made and a plan was set to decrease the frequency of her sessions. Able to see this as a positive. She has shared with her brothers that she has obtained a job. Talked at length regarding starting an online conversation with a man whom she knew in high school. Insight that needs to be cautious and maintain boundaries with this man. Wants to remain focused on herself, her sobriety, and her new career. Discussed how relationships can cause additional stress and drama which would not benefit her at this point. Group provided feedback, encouragement, and support which was beneficial. Will continue in IOP to maintain gains and transition to new job. This is the most progress pt has made in several years and would benefit from continued support to increase likelihood of success. Narrative Note: []
--- NOTE | 2019-03-05 10:40 | BH.MDN ---
Multi-Disciplinary Note - Note 30-min Individual Time Started:: 10:05 Date: 03/05/19 Purpose of session/treatment goals addressed:: Purpose of session was to assess pt's current symptoms and stressors. Other topics included: addressing worries about new job, setting boundaries, and creating weekend plan. Eye Contact:: Good Motor Activity:: Appropriate Appearance:: Casual Speech:: Appropriate Mood:: Euthymic Affect:: Congruent Thoughts:: Linear, Logical, No evidence of hallucinations/delusions noted Staff Interventions:: Therapist used open ended questions to elicit pt's current symptoms and stressors. Therapist assisted pt with identifying strategies to addressing worry about starting new job. Therapist gently challenged pt's perspective about not wanting to set a clear, firm boundary with a man who is pursing a romantic relationship with pt. Therapist assisted pt with increasing awareness of how passive behavior can impact her own mental health. Provided support by using active listening and validating emotions. Client Response:: Pt stated she is very excited about starting a new job soon. Pt reported she is unsure of her official start date just knows she will complete paperwork next week. Pt stated she is most excited about getting back into an area of work that she is passionate about. Pt reported her biggest worry about her new job is not engaging in self-care practices and no longer attending her AA meetings. Pt worked with therapist to identify plan to address biggest worry. Pt stated she will have her outpatient therapist help keep her accountable with attending AA meetings, going to protestant and attending choir practice. Pt reported her other stressor is dealing with a male that she used to go to high school with who has recently been messaging her on Facebook. Pt stated she is concerned because he is currently going through a divorce. Pt reported he has made comments to her through [employer] that seem to be a little fast for how long they have known each other. Pt stated she knows she has a history of getting into relationships with needy men in an effort to fix them. pt stated she doesn't want to make that same mistake. pt recognizes now is not the right time to start a relationship. When discussing importance of setting boundaries, pt hesitant about being up front about not being ready for a relationship. Pt stated she doesn't want to hurt his feelings'. Responded well to being challenged by pt about how passive behavior can hurt her in the end. Pt stated she will be cautious with this friendship and consider being more open and honest with him. Pt reported this weekend she will attend 2 AA meetings and 1 Al-Anon meeting. Pt stated she doesn't have other plans as of now. Pt reported she has made significant treatment progress since starting IOP, but doesn't feel ready for discharge. Pt expressed need to have continued intensive support when starting her new job to help her maintain sobriety and other treatment gains she has made thus far. Risks/Concerns:: Denies suicidal ideation, plan or intention to date. Progress Toward Goals/Plan:: Progress noted with pt's increased awareness of negative thought patterns with improved ability to challenge thoughts. Pt reporting improved mood and increased motivation. Pt continues to struggle with setting clear, firm boundaries with others which could negatively impact her mental health. Plan is for pt to continue IOP level of care to help her maintain gains, maintain sobriety and prevent decompensation as she transitions into a full-time job. Time Stopped:: 10:37
--- NOTE | 2019-03-05 11:05 | BH.SGPN.GN ---
Behaviors/Verbalizations/Mental Status: []Client alert and oriented, neatly dressed and groomed. Eye contact good. Motor activity appropriate. Speech within normal limits. Affect congruent, mood euthymic. Thoughts linear, logical, no signs of hallucinations or delusions. Client Response/Progress/Benefit: []Client receptive of session, actively listening and providing good insight to discussion. Willing to complete worksheet activity. Participated as the group further processed the activity and connected that maintaining self-care requires balancing life stressors and making oneself a priority. Client completed self-assessment activity on the different areas of self-care and was able to identify current practices she uses and identify areas she can improve upon. Client reported she can improve her emotional self-care. Client set a goal to improve in the area of emotional self-care. Client?s goal is to set a boundary with a friend she met online and client plants to do this today. Client shared this would benefit client because she wants to make sure her friend does not expect more from their relationship. Client appeared to benefit from increasing awareness of how she can improve her self-care balance. Progress noted as client continues to report sobriety and has more consistently reported a positive mood. Client will continue IOP tx to promote gains, sobriety, and maintenance as client will starting a new job soon. Narrative Note: []
--- NOTE | 2019-03-08 09:05 | BH.SGPN.GN ---
Behaviors/Verbalizations/Mental Status: []Client alert and oriented, casual dress, hygiene tended to. Eye contact good. Motor activity appropriate. Speech within normal limits. Affect congruent, mood euthymic and happy. Thoughts linear, logical, no signs of hallucinations or delusions. Reviewed client?s symptom tracker, no signs of suicidal ideation, plan, or intent as of today. Client Response/Progress/Benefit: []Patient responded well to session as evidenced by openly sharing thoughts and feelings and attentive to others. Patient reported she set a boundary with a friend she was talking with on social media. Patient stated she is glad she decided to set boundaries because that person immediately stopped talking to her once the boundary had been set. Patient reports she is glad she was able to remove that unneeded extra stressor. Patient reported another positive is being able to attend IOP today despite feeling physically unwell yesterday. Patient stated her biggest stressor was having to care for her mom who has dementia for longer than usual while her dad was away. Patient identified current emotion to be excited because she completes paperwork for her new job today. Progress noted with patient reporting improved mood, using healthy coping, and maintaining sobriety. Narrative Note: []
--- NOTE | 2019-03-08 10:20 | BH.SGPN.GN ---
Behaviors/Verbalizations/Mental Status: []Eye contact is good. Motor activity is appropriate. Appearance is casual. Speech is Appropriate. Mood is euthymic. Affect is congruent. Thoughts are linear and logical. No evidence of psychosis. Client Response/Progress/Benefit: []Client was a passive participant in group discussion and activity. Attentive to discussion on the quote and topic of the day. Group identified several definitions of pitfalls which included; engaging in choices that keep us stuck, unexpected dangers, and unforeseen difficulty. The group discussed the consequences of continuing to fall into pitfalls or not address pitfalls which included; hospitalization, increased mental health symptoms, and loss of employment or relationships. Attentive on psycho-education on the impact of how one hubert with or manages pitfalls in regard to mental health. Group worked together to identify what keeps us stuck or vulnerable to pitfalls which included; lack of resources, stigma, feeling uncomfortable, it is hard to go against the norm, and difficulty seeing the big picture. During the activity client shared that in order to avoid pitfalls, one has to have awareness of those pitfalls. Benefited from increased awareness on the impact that pitfalls can have on mental health. Progress noted as shown by client?s report of ongoing sobriety and improved mood. Will continue IOP tx to promote gains, maintenance of healthy coping skills, and sobriety. Narrative Note: []
--- NOTE | 2019-03-08 11:21 | BH.SGPN.GN ---
Behaviors/Verbalizations/Mental Status: [Client alert and oriented, casually dressed and groomed. Eye contact good. Motor activity appropriate. Speech within normal limits. Affect congruent, mood euthymic. Thoughts linear, logical, no signs of hallucinations or delusions. ] Client Response/Progress/Benefit: []Client receptive of session, engaged throughout AEB client contributing to discussion and taking notes. Processed activity with group and connected it to overcoming personal pitfalls in life. Client completed a worksheet where she identified personal pitfalls impacting mental health progress. Identified pitfalls as: negative self-talk, doubt, personalization, and self-sabotaging. Client recognized that with awareness and use of healthy coping skills, it is possible to prevent or better manage pitfalls and shared how she has made progress in doing so since previously having this group. Attentive and providing input during psychoeducation on strategies to overcome pitfalls. Client stated she will work on pitfall of automatic negative thoughts by engaging in thought challenging and practicing opposite action. Benefited from identifying personal pitfalls and strategies to overcome these pitfalls. Progress noted as client reported improved follow-through in small goal completion and ability to challenge negative thoughts. Will continue IOP tx to maintain gains and prevent decompensation as she transitions back to work. Narrative Note: []
--- NOTE | 2019-03-10 09:04 | BH.SGPN.GN ---
Behaviors/Verbalizations/Mental Status: [Eye contact is good. Motor activity is appropriate. Appearance is casual, grooming appropriate. Speech is Appropriate rate and tone. Mood is euthymic. Affect is congruent. Thoughts are linear and logical. No evidence of psychosis. Reviewed daily check in sheet and pt denies any active SI, plan, or intent as of this date. ] Client Response/Progress/Benefit: []Pt responded well to session, engaged throughout and open to processing with the group. Pt indicated current emotion as ?exhilarated? and discussed that this is due to having a successful first day at her new job. Pt shared that although returning to the workforce is a stressor, she is excited and relieved to be back in the field. Identified current mental health wins as being able to set some boundaries with others on her first day without worrying. Additional win identified as ensuring she set aside time for self-care following her work shift and noted getting herself dinner from a local market. Appeared to benefit from reflecting upon the skills she applied to successfully prepare for her first day, as well as the support of the group environment. Pt progress noted per pt report of improved anxiety management and application of healthy skills as she transitions back into the workplace. Pt recommended continued IOP tx to prevent decompensation, promote ongoing application of healthy coping skills, and further reduce mental health sx severity. Narrative Note: []
--- NOTE | 2019-03-10 10:20 | BH.SGPN.GN ---
Behaviors/Verbalizations/Mental Status: []Client alert and oriented, neatly dressed and groomed. Eye contact good. Motor activity appropriate. Speech within normal limits. Affect congruent, mood euthymic. Thoughts linear, logical, no signs of hallucinations or delusions. Client Response/Progress/Benefit: []Client responded well to session, listening attentively and providing examples. Participated in the group discussion to define and identify differences between internal and external conflict. Client reported one can have internal conflict when beliefs do not match behaviors. Client shared ?there will always be conflict, but we can?t get the best solution without conflict.? Group reported the benefits of addressing conflict included personal growth, stress relief, preventing further consequences, and better relationships. Group identified and discussed consequences of not addressing conflict in healthy ways which included: resentment, damaged relationships, increased mental health symptoms, and not getting one?s needs met. Participating during psychoeducation on different conflict styles such as avoiding, accommodating, competing, and collaborative. Benefited as client was able to identify and define conflict as well as increase awareness of how conflict styles impact mental health. Progress noted as shown by client?s ability to maintain sobriety and start a job in her field. Will continue IOP tx to promote gains and further improve mood stability. Narrative Note: []
--- NOTE | 2019-03-10 11:25 | BH.SGPN.GN ---
Behaviors/Verbalizations/Mental Status: []Client alert and oriented, casually dressed and groomed. Eye contact good. Motor activity appropriate. Speech within normal limits. Affect congruent, mood euthymic and positive. Thoughts linear, logical, no signs of hallucinations or delusions. Client Response/Progress/Benefit: []Client responded well to session, providing to discussion and activity. Contributed to ongoing discussion of the different conflict resolution styles, drawbacks, and appropriate times of use. Client indicated when she first started the program her conflict resolution style was avoidance. pt stated having an avoidance conflict resolution style resulted in her needs not getting met. Client reported she has moved towards a more collaborative conflict resolution style. Client stated she now is able to get her needs met because she is using direct and assertive communication. Client worked cooperatively with group to identify healthy strategies to manage the different conflict scenarios provided. Client stated she will maintain collaborative conflict resolution style by focusing on determining best way to resolve conflict before reacting. Client appeared to benefit from increasing awareness of her personal conflict resolution style and from learning ways to increase healthy conflict resolution. Progress noted as client is able to note progress with making positive changes in her conflict resolution style when compared to when she started IOP. Will continue IOP tx to maintain gains, continue use of healthy coping skills and prevent decompensation. Narrative Note: []
--- NOTE | 2019-03-10 11:35 | PCM.BH.PN_ITS ---
Progress Note Progress Note: History of Present Illness/Interim History: [] Patient is a 58-year-old female who is seen in follow-up at the [facility] program. I last saw the patient about 1 month ago. Patient is has a history of depression, PTSD and alcohol use disorder. Guido says that she is doing quite well in fact she says doing great. She describes her mood as upbeat in has a normal energy level. 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 She feels she is really benefiting from the program and she is using skills such as self-care, journaling and other skills and feels these are really benefiting her. Her sleep is good about 7 to 8 hours a night. Her last alcohol use was 1 to 2 months ago. She says she does not like to think about the exact number of days she has been sober because she feels that hurts her sobriety. She was doing AA but is not able to do it lately since she started her new job a few days ago. She will resume AA meetings when her job training is over. She recently stopped her naltrexone 1 week ago because she said it gave her nausea and nightmares. She does not want to restart naltrexone. She is continuing to enjoy cooking, listening to music and socializing with friends. Current Psychiatric Medications: [Effexor XR 150 mg p.o. daily; BuSpar 10 mg p.o. twice a day; Wellbutrin 75 mg p.o. twice a day] Mental Status Examination: [] Is a 58-year-old female who appears normal for stated age. She is casually dressed and groomed with good hygiene. She is mildly obese. She is ambulatory with a normal gait and is cooperative and pleasant during the interview. She has no psychomotor agitation or retardation. She has good eye contact. Speech is normal rate and rhythm, fluent with no pressure. Her mood is euthymic. Her affect is full and normal. Thought process: Goal-directed and organized. Thought content: No evidence of suicidal or homicidal ideation. No passive thoughts of . No evidence of hallucinations or delusions. Concentration is normal. Judgment is intact. Impulsivity is low and insight is good. Diagnoses: [] [place] I: [] Major depressive disorder recurrent moderate (resolving); anxiety disorder unspecified; PTSD; alcohol use disorder (in partial remission) [place] II: [] Deferred [place] III: [] Hypothyroidism; hypertension [place] IV:[]] Primary support, financial issues Plan: [] The patient will continue the IOP program at [facility] as the support, structure, education, group and individual therapy have benefited the patient. The risk, options, possible side effects and complications of her medications were discussed with the patient and she understands and accepts these. She will continue to maintain sobriety and she understands that this is extremely important. She will resume AA meetings as soon as her new job schedule allows her to. If in several weeks she feels she wants to restart naltrexone that is an option for her to aid in her sobriety. She felt safe during the interview and if at any time she does not feel safe she will contact us or go to the emergency room. We will continue her current medications at their current doses. She will continue to follow-up with her outpatient providers as scheduled. She does not need any refills on her prescriptions today. She will continue to see her counselor at [facility] once a week.
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
--- NOTE | 2019-03-12 11:15 | BH.SGPN.GN ---
Behaviors/Verbalizations/Mental Status: [] Client alert and oriented, casual in appearance. Eye contact good. Motor activity appropriate. Speech within normal limits. Affect congruent, mood euthymic. Thoughts linear, logical, no signs of hallucinations or delusions. Client Response/Progress/Benefit: []Client was an active participant in group discussion and activity. Able to identify automatic negative thoughts, not engaging in self-care, and trying to do everything alone as obstacles which are preventing client from achieving client?s desired reality. Client was able to identify that she is not going with her first thought as a way to help herself move towards desired reality. Active during activity and providing ideas on how to cope with internal barriers. Client along with peers identified various obstacles during the activity and developed strategies to overcome those obstacles to wellness and desired reality. Client selected wanting to work on the barrier of not consistently engaging in self-care by scheduling time each day for self-care activities. Benefited from group by identifying obstacles and solutions to desired reality. Will continue IOP tx to further combat distortions, successfully transition back into new job, and prevent decompensation. Narrative Note: []
--- NOTE | 2019-03-12 20:12 | BH.MDN_ITS ---
Multi-Disciplinary Note - Note 30-min Individual Time Started:: 10:15 Date: 03/12/19 Purpose of session/treatment goals addressed:: Purpose of session was to work on goal 1 from master treatment plan. Eye Contact:: Good Motor Activity:: Appropriate Appearance:: Casual Speech:: Appropriate Mood:: Euthymic Affect:: Full Thoughts:: Linear, Logical, No evidence of hallucinations/delusions noted Staff Interventions:: Therapist used open ended questions to elicit pt's current symptoms and stressors. Reviewed positives. Therapist discussed importance of work-life balance. Assited pt with idenfying what will be important to engage in to help maintain stability and manage new job. Client Response:: Pt stated she loves her new job. Pt reported everything is going awesome so far. Pt reported she was able to guide a staff member on being mindful of their negativity. Pt stated she is enjoying helping others. Pt stated as of right now her job is manageable. Pt stated she recognizes she needs to continue to take care of herself so she doesn't burnout. Pt reported she is going to meet with a friend this weekend for coffee. Pt stated as of right now she will not be able to attend her AA meetings. Recognizes this could be p roblematic but stated she hopes after training she can make time for AA. Pt dismissed therapist encouragement to advocate with boss that pt needs time to go to AA to maintain sobriety. Risks/Concerns:: denies current suicidal thoughts, plan or intention to date. future focused. Progress Toward Goals/Plan:: Progress noted with pt being able to return to working field. Pt reports improved mood and increased purpose. Concern is pt is going to decrease engaging in healthy coping skills and is already not attending her AA meetings due to work. Pt is to continue IOP to maintain gains, asssit with transition to work environment and prevent decompensation. Time Stopped:: 10:40
--- NOTE | 2019-03-19 10:25 | BH.SGPN.GN ---
Behaviors/Verbalizations/Mental Status: []Client alert and oriented, casually dressed and groomed. Eye contact good. Motor activity appropriate. Speech within normal limits. Affect congruent, mood euthymic. Thoughts linear, logical, no signs of hallucinations or delusions. Client Response/Progress/Benefit: []Client engaged in session, actively contributing to discussion and participating in the activity. Client connected with the quote and shared ?we push off our problems, but if we don?t change, nothing changes.? Client reported comfort zones and negative thinking keep people stuck from solving problems and improving their mental health. Client participated in the discussion of problem-solving examples and the barriers that come with this. Client provided the group with numerous community resources that can help a person overcome barriers. Client worked with peers to brainstorm the components of A,B,C,D,E problem solving method and did well to begin to apply such during the group experiential activity. Client seemed to benefit from learning about problem solving method and rehearsing problem-solving skills in the moment. Progress noted in client?s improved mood, ongoing sobriety, and ability to return to higher level of functioning. Client will discharge from [facility] today as she has made significant progress and no longer meets criteria for IOP level of care. Narrative Note: []
--- NOTE | 2019-03-19 11:10 | BH.SGPN.GN ---
Behaviors/Verbalizations/Mental Status: []Eye contact is good. Motor activity is appropriate. Appearance is casual. Speech is Appropriate. Mood is dysthymic. Affect is constricted. Thoughts are linear and logical. No evidence of psychosis. Client Response/Progress/Benefit: []Pt responded well to session as evidenced by pt listening to peers and contributing thoughts to session. Pt stated the problem she wants to work on is automatic negative thoughts. Pt identified skills she can utilize to work on this problem include: STOPP technique, challenging distorted and negative thoughts, positive self-talk, identifying daily wins to change perspective, and opposite action. Pt seemed to benefit from identifying strategies to problem solve through a current problem. Narrative Note: []
--- NOTE | 2019-03-19 14:15 | BH.AFTERPLAN ---
Aftercare Plan - Medications Home Medications: Home Medications multivitamin 1 ea PO DAILY #0 06/12/17 Cholecalciferol (Vitamin D3) [Vitamin D3] 5,000 unit PO DAILY 03/29/18 Doxycycline [Vibramycin] 100 mg PO DAILY 03/29/18 cetirizine 10 mg capsule 10 mg PO DAILY 05/07/18 atenolol 25 mg tablet 25 mg PO BID #60 tab 11/11/18 buspirone 10 mg tablet 10 mg PO BID #180 tab 11/11/18 venlafaxine 150 mg capsule,extended release 24 hr 150 mg PO DAILY #90 cap 02/16/19 levothyroxine 200 mcg tablet See Rx Instructions .ROUTE .COMPLEX #30 tab 03/23/19 benzonatate 100 mg capsule 100 mg PO TID PRN #30 cap 03/31/19 fluticasone propionate 50 mcg/actuation nasal spray,suspension 2 spray INTRANASAL DAILY #15.8 g 03/31/19 levocetirizine 5 mg tablet 5 mg PO DAILY PRN #90 tab 03/31/19 bupropion HCl 75 mg tablet See Rx Instructions .ROUTE .COMPLEX #60 tab 04/15/19
--- NOTE | 2019-03-19 20:14 | BH.MDN_ITS ---
Multi-Disciplinary Note - Note 30-min Individual Time Started:: 09:25 Date: 03/19/19 Purpose of session/treatment goals addressed:: Purpose of session was to identify treatment progress, strategies to maintain progress, and solidify discharge plans. Eye Contact:: Good Motor Activity:: Appropriate Appearance:: Casual Speech:: Appropriate Mood:: Euthymic Affect:: Full Thoughts:: Linear, Logical, No evidence of hallucinations/delusions noted Staff Interventions:: Therapist used open ended questions to elicit pt's perspective of treatment progress since starting IOP. Therapist collaborated with pt to identify strategies to help pt maintain gains. Therapist solidified aftercare plans post-discharge. Client Response:: Pt responded well to session AEB pt sharing openly with therapist. Pt stated she has made signficiant gains since starting IOP. Pt reported she has noticed a more positive perspective towards life. 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 Pt stated strateiges that will help her maintain progress include: attending AA meetings, self-care, challenging negative thoughts, going to individual therapy, open communication and talking with supports. Pt reported she feels more stable and ready to discharge from IOP. Risks/Concerns:: denies current suicidal ideation, plan or intention. future focused. Progress Toward Goals/Plan:: Progress noted with pt maintaining sobriety, able to challenge distorted thoughts, reporting improved mood and returning to the workforce. Plan is for pt to discharge from [facility] today. Pt has an appointment set with her outpatient therapist Dai on Friday at 1:30pm. Time Stopped:: 10:00
--- NOTE | 2019-03-19 20:15 | BH.DS ---
Discharge Summary - Demographics Discharge Date: 03/19/19 - Treatment Discharge Handout: Complete Discharge Handout with client on aftercare options and continuity of care.
== END 2019-03-26 23:59 ==
LOC: BHIOP 09:00
PROVIDERS: Family Provider Family Medicine; PCP Family Medicine; Referring Provider Psychiatry & Neurology Psychiatry; Visit Provider Psychiatry & Neurology Psychiatry
DX: F33.1 Major depressive disorder, recurrent, moderate (principal); F41.9 Anxiety disorder, unspecified; F43.10 Post-traumatic stress disorder, unspecified; Z72.89 Other problems related to lifestyle; Z79.899 Other long term (current) drug therapy; E66.9 Obesity, unspecified
CPT/HCPCS: H0035; H2012; H2020; 90832

== ENCOUNTER 2019-06-26 17:14 | Emergency (ER) | payer BC, MEDICAID, SELFPAY ==
[2019-06-16 16:01] VITALS: BMI 39.7
[2019-06-26] VITALS (7 sets, daily range): BP systolic 68–102; BP diastolic 48–63; PULSE 106–117; RESP 18–20; TEMP 37; O2SAT 93–96; BMI 44.7
[2019-06-26] MEDS: fentaNYL 100 MCG/2 ML Ampul 50 MCG IV ×2 (17:41→19:16)
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
[2019-06-26] MEDS: 0.9% Normal Saline 1,000 ML 999 ML IV ×3 (17:51→20:14)
[2019-06-26 17:54] LABS: Absolute Lymphocyte Count 2.38 X10^3/uL (0.83-4.51); Absolute Neutrophil Count 4.8 X10^3/uL (2.0-7.7); Basophil# 0.08 X10^3/uL; Eosinophil# 0.09 X10^3/uL; Eosinophils% 1.1 % (0-5); Hematocrit 41.4 % (37-47); Hemoglobin 13.5 g/dL (12.0-15.0); Lymphocyte # 2.38 X10^3/ul (4.0); Lymphocyte % 30.2 % (19-41); Mean Corp Hgb Conc 32.6 g/dL (32-36); Mean Corpuscular Hgb 29.7 pg (27.0-32.0); Mean Platelet Vol. 8.6 fl (6.2-12.0); Monocyte# 0.33 X10^3/uL; Monocyte% 4.2 % (0-10); NRBC Flagged by Analyzer 0 % (0-5); Neutrophil # 4.83 X10^3/uL (2.7-7.7); Neutrophil % 61.5 % (47-70); Platelet Count 287 K/mm3 (150-450); RBC Distribution Width CV 14.1 % (11.6-14.6); RBC Distribution Width SD 46.2 fl (35.1-43.9); Red Blood Count 4.55 M/mm3 (4.2-5.4); White Blood Count 7.9 K/mm3 (4.4-11.0)
[2019-06-26 18:10] LABS: ALB/GLOB Ratio 0.7 RATIO (0.9-2.4); AST(SGOT) 437 U/L (15-37); Alanine Aminotransfer ALT/SGPT 141 U/L (13-56); Albumin, Serum 2.6 g/dL (3.2-5.0); Alkaline Phosphatase 118 U/L (45-117); Anion Gap 13 (5-15); BUN 5 mg/dL (7-18); BUN/Creat Ratio 5.2 RATIO (10-20); Calcium,Total 8.1 mg/dL (8.5-10.1); Chloride 90 mmol/L (98-107); Creatinine, Serum 0.96 mg/dL (0.55-1.02); EST Glomerular Filtration Rate 64 mL/min (>60); Est Glom Filt Rate - Afr Amer 77 mL/min (>60); Estimated Creatinine Clearance 62.87 ml/min; Globulin 3.7 g/dL (2.2-4.2); Glucose 184 mg/dL (74-106); Potassium 3.7 mmol/L (3.5-5.1); Protein, Total 6.3 g/dL (6.4-8.2); Sodium Level 125 mmol/L (136-145)
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
[2019-06-26 19:29] LABS: Bacteria 0 SEEN /hpf (None Seen); Mucous, Urine 0 SEEN /hpf (<or=2+); Red Blood Cells-Urine 0 SEEN /hpf (0-5); Squamous Epithelial Cells - UA 0 SEEN /hpf (5-10); White Blood Cells 0 SEEN /hpf (0-5)
[2019-06-26 19:36] LABS: Color, Urine Yellow (Yellow); Glucose, Dipstick Normal (Normal); Ketone-Dipstick Negative (Negative); Leukocyte Esterase-Dipstick Negative /ul (Negative); Nitrite-Dipstick Negative (Negative); Occult Blood-Urine 150 /ul (Negative); Protein-Dipstick 30 mg/dl (Negative); Urine Bilirubin Dipstick Negative (Negative); Urine Clarity Clear (Clear); Urine Urobilinogen Normal (Normal); Urine pH 6.5 (5.0 - 8.0)
[2019-06-26 19:42] LABS: Amphetamine Urine VISTA NEGATIVE (<1000 ng/mL); Barbiturate Urine VISTA NEGATIVE (< 200 ng/mL); Benzodiazepine Urine VISTA NEGATIVE (< 200 ng/mL); Cocaine Urine VISTA NEGATIVE (< 300 ng/mL); Ecstacy Urine VISTA NEGATIVE (< 500 ng/mL); Methadone Urine VISTA NEGATIVE (< 300 ng/mL); PCP Urine VISTA NEGATIVE (< 25 ng/mL); THC Urine VISTA NEGATIVE (< 50 ng/mL); Vista UDS pH Range 6
[2019-06-26 19:46] LABS: Amorphous Sediment R
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
== END 2019-06-26 20:47 | disposition short-term general hospital (02) ==
LOC: ED 19:27
PROVIDERS: Emergency Provider Emergency Medicine; PCP Family Medicine
DX: S72.402A Unspecified fracture of lower end of left femur, initial encounter for closed fracture (principal); S22.21XA Fracture of manubrium, initial encounter for closed fracture; S22.22XA Fracture of body of sternum, initial encounter for closed fracture; S22.43XA Multiple fractures of ribs, bilateral, initial encounter for closed fracture; S00.81XA Abrasion of other part of head, initial encounter; S50.812A Abrasion of left forearm, initial encounter; S39.91XA Unspecified injury of abdomen, initial encounter; I95.9 Hypotension, unspecified; V43.52XA Car driver injured in collision with other type car in traffic accident, initial encounter; Y93.9 Activity, unspecified; Y99.9 Unspecified external cause status; F10.129 Alcohol abuse with intoxication, unspecified; G40.909 Epilepsy, unspecified, not intractable, without status epilepticus; I10 Essential (primary) hypertension; E03.9 Hypothyroidism, unspecified; E55.9 Vitamin D deficiency, unspecified; K21.9 Gastro-esophageal reflux disease without esophagitis; F32.9 Major depressive disorder, single episode, unspecified; F41.9 Anxiety disorder, unspecified; E66.9 Obesity, unspecified; Z88.0 Allergy status to penicillin; Z79.899 Other long term (current) drug therapy
CPT/HCPCS: 27510; 51702; 70450; 71260; 72125; 73552; 73560; 74177; 80053; 80307; 80320; 81001; 84484; 85025; 86850; 86900; 86901; 93005; 96361; 96374; 96376; 99285; J7030; Q9967; A4216; G0480

== ENCOUNTER 2019-07-02 11:30 | Inpatient (IN) | payer BC, MEDICAID, SELFPAY ==
[2019-06-26 17:15] VITALS: BMI 44.7
[2019-07-02 11:44] VITALS: BP 115/71; PULSE 82; RESP 20; TEMP 36.7; O2SAT 94; BMI 44.9
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
[2019-07-02 19:42] VITALS: BP 120/65; PULSE 86; RESP 20; TEMP 36.8; O2SAT 94
[2019-07-02] MEDS: oxyCODONE 5 MG Tablet PO (19:55)
[2019-07-02] MEDS: buPROPion 75 MG Tablet PO (20:21)
[2019-07-02] MEDS: Atenolol 25 MG Tablet PO (20:21)
[2019-07-02] MEDS: busPIRone 5 MG Tablet 10 MG PO (20:22)
[2019-07-02] MEDS: Senna/Docusate Sodium 1 Tablet 2 TABLET PO (20:22)
--- NOTE | 2019-07-02 20:24 | NURSING ---
hs meds provided early per pt request to enable early bedtime without interruption.
[2019-07-02 21:41] VITALS: PULSE 83; O2SAT 94
[2019-07-03] MEDS: oxyCODONE 5 MG Tablet PO ×5 (01:45→22:36)
[2019-07-03] MEDS: Levothyroxine 25 MCG TABLET 12.5 MCG PO (05:58)
[2019-07-03] MEDS: Levothyroxine 100 MCG Tablet 200 MCG PO (06:03)
[2019-07-03] MEDS: Enoxaparin 40 MG/0.4 ML Syringe SC (06:04)
[2019-07-03 06:17] LABS: Hematocrit 28.1 % (37-47); Hemoglobin 9.3 g/dL (12.0-15.0); Mean Corp Hgb Conc 33.1 g/dL (32-36); Mean Corpuscular Hgb 30.3 pg (27.0-32.0); Mean Corpuscular Volume 91.5 fL (81-99); Mean Platelet Vol. 8.9 fl (6.2-12.0); POSITIVE COUNT YES; POSITIVE MORPHOLOGY YES; Platelet Count 258 K/mm3 (150-450); RBC Distribution Width CV 14.7 % (11.6-14.6); RBC Distribution Width SD 47.6 fl (35.1-43.9); Red Blood Count 3.07 M/mm3 (4.2-5.4); White Blood Count 12.1 K/mm3 (4.4-11.0)
[2019-07-03 06:20] LABS: Differential Indicated MANUAL DIFF
[2019-07-03 06:30] LABS: Prothrombin Time (Protime)PT. 12.7 SECONDS (11.7-14.9)
[2019-07-03 06:51] LABS: Lymphocyte 18 % (19-41); Monocyte 7 % (0-10); Neutrophil-Band 4 % (0-5); Neutrophil-Segmented 71 % (47-70)
[2019-07-03 06:52] LABS: Absolute Lymphocyte Count 2.17 X10^3/uL (0.83-4.51); Absolute Neutrophil Count 9.1 X10^3/uL (2.0-7.7); Lymphocyte # 2.17 X10^3/ul (4.0); Monocyte# 0.84 X10^3/uL; Neutrophil # 9.05 X10^3/uL (2.7-7.7)
[2019-07-03 06:53] LABS: ALB/GLOB Ratio 0.6 RATIO (0.9-2.4); AST(SGOT) 55 U/L (15-37); Alanine Aminotransfer ALT/SGPT 32 U/L (13-56); Albumin, Serum 1.9 g/dL (3.2-5.0); Alkaline Phosphatase 101 U/L (45-117); Anion Gap 7 (5-15); BUN 8 mg/dL (7-18); BUN/Creat Ratio 12.3 RATIO (10-20); Chloride 91 mmol/L (98-107); Creatinine, Serum 0.65 mg/dL (0.55-1.02); EST Glomerular Filtration Rate 100 mL/min (>60); Est Glom Filt Rate - Afr Amer 121 mL/min (>60); Estimated Creatinine Clearance 92.86 ml/min; Globulin 3.2 g/dL (2.2-4.2); Glucose 109 mg/dL (74-106); Magnesium 1.7 mg/dL (1.6-2.6); Phosphorus 2.5 mg/dL (2.5-4.9); Potassium 3.9 mmol/L (3.5-5.1); Protein, Total 5.1 g/dL (6.4-8.2); Sodium Level 128 mmol/L (136-145); T4 Free Direct 0.63 ng/dL (0.76-1.46); T4 Total, Thyroxin 4.3 ug/dL (4.8-13.9)
[2019-07-03 07:14] LABS: Hemoglobin A1c 6.3 % (4.2-6.3)
[2019-07-03 07:49] VITALS: BP 119/74; PULSE 84; RESP 18; TEMP 36.9; O2SAT 94
[2019-07-03] MEDS: Senna/Docusate Sodium 1 Tablet 2 TABLET PO ×2 (08:54→22:34)
[2019-07-03] MEDS: Polyethylene Glycol 3350 17 GM PACKET PO (08:54)
[2019-07-03] MEDS: Atenolol 25 MG Tablet PO ×2 (08:55→22:35)
[2019-07-03] MEDS: Celecoxib 200 MG Capsule PO (08:55)
[2019-07-03] MEDS: buPROPion 75 MG Tablet PO ×2 (08:55→22:34)
[2019-07-03] MEDS: busPIRone 5 MG Tablet 10 MG PO ×2 (08:55→22:34)
[2019-07-03] MEDS: Venlafaxine XR 150 MG Capsule PO (08:55)
[2019-07-03] MEDS: Doxycycline 100 MG CAPSULE PO (08:55)
[2019-07-03] MEDS: Multivitamins,Therapeutic Tablet 1 TABLET PO (12:10)
[2019-07-03 21:10] VITALS: BP 133/60; PULSE 68; RESP 16; TEMP 37.1; O2SAT 96
[2019-07-04] MEDS: Enoxaparin 40 MG/0.4 ML Syringe SC (05:00)
[2019-07-04] MEDS: Levothyroxine 100 MCG Tablet 200 MCG PO (05:01)
[2019-07-04] MEDS: oxyCODONE 5 MG Tablet PO ×4 (05:01→19:52)
[2019-07-04] MEDS: Nystatin Powder 15gm Bottle 1 APPLIC TOPICAL ×2 (07:23→19:50)
[2019-07-04 07:29] VITALS: O2SAT 96
[2019-07-04 08:39] VITALS: BP 114/72; PULSE 77; RESP 20; TEMP 36.7; O2SAT 97
[2019-07-04] MEDS: buPROPion 75 MG Tablet PO ×2 (09:05→19:49)
[2019-07-04] MEDS: Venlafaxine XR 150 MG Capsule PO (09:05)
[2019-07-04] MEDS: busPIRone 5 MG Tablet 10 MG PO ×2 (09:05→19:49)
[2019-07-04] MEDS: Atenolol 25 MG Tablet PO ×2 (09:05→19:49)
[2019-07-04] MEDS: Celecoxib 200 MG Capsule PO (09:05)
[2019-07-04] MEDS: Doxycycline 100 MG CAPSULE PO (09:05)
[2019-07-04] MEDS: Multivitamins,Therapeutic Tablet 1 TABLET PO (11:59)
[2019-07-04 19:30] VITALS: PULSE 72; RESP 16; O2SAT 95
[2019-07-04 19:32] VITALS: BP 115/66; PULSE 80; RESP 16; TEMP 36.6; O2SAT 93
[2019-07-04] MEDS: Senna/Docusate Sodium 1 Tablet 2 TABLET PO (19:50)
[2019-07-05] MEDS: oxyCODONE 5 MG Tablet PO ×4 (02:11→20:16)
[2019-07-05] MEDS: Nystatin Powder 15gm Bottle 1 APPLIC TOPICAL ×2 (06:15→20:18)
[2019-07-05] MEDS: Enoxaparin 40 MG/0.4 ML Syringe SC (06:15)
[2019-07-05] MEDS: Levothyroxine 100 MCG Tablet 200 MCG PO (06:15)
[2019-07-05 06:55] VITALS: O2SAT 96
[2019-07-05 07:48] VITALS: BP 129/85; PULSE 80; RESP 18; TEMP 36.4; O2SAT 96
[2019-07-05 09:37] LABS: Vitamin D,25 Hydroxy 25.9 ng/mL
[2019-07-05] MEDS: Celecoxib 200 MG Capsule PO (10:26)
[2019-07-05] MEDS: busPIRone 5 MG Tablet 10 MG PO ×2 (10:26→20:17)
[2019-07-05] MEDS: Senna/Docusate Sodium 1 Tablet 2 TABLET PO ×2 (10:26→20:17)
[2019-07-05] MEDS: Atenolol 25 MG Tablet PO ×2 (10:26→20:18)
[2019-07-05] MEDS: Venlafaxine XR 150 MG Capsule PO (10:26)
[2019-07-05] MEDS: Polyethylene Glycol 3350 17 GM PACKET PO (10:27)
[2019-07-05] MEDS: buPROPion 75 MG Tablet PO ×2 (10:27→20:18)
[2019-07-05] MEDS: Multivitamins,Therapeutic Tablet 1 TABLET PO (10:27)
[2019-07-05] MEDS: Doxycycline 100 MG CAPSULE PO (10:27)
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
[2019-07-05 11:26] LABS: Pathologist Review Reviewed
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
--- NOTE | 2019-07-05 15:52 | CASEMGMT ---
Social Work Provided pt with JAVI application to complete. Offered assistance. Jenna Cristina, CYLINDER CHECKER EMBRYOLOGY TEACHER
[2019-07-05 17:02] LABS: Urine Sodium 39 mmol/L (Not Establ.)
[2019-07-05] MEDS: Loratadine 10 MG Tablet 5 MG PO (18:01)
[2019-07-05] MEDS: Ascorbic Acid 500 MG Tablet PO (18:02)
[2019-07-05] MEDS: Acetaminophen 500 MG Tablet 1000 MG PO (20:17)
[2019-07-05] MEDS: Famotidine 20 MG Tablet PO (20:18)
[2019-07-05 20:30] VITALS: BP 109/72; PULSE 81; RESP 16; TEMP 36.7; O2SAT 94
--- NOTE | 2019-07-06 03:49 | NURSING ---
Reviewed and agree with CLASSROOM TECHNOLOGY COACH documentation.
[2019-07-06] MEDS: Enoxaparin 40 MG/0.4 ML Syringe SC (05:29)
[2019-07-06] MEDS: oxyCODONE 5 MG Tablet PO ×4 (05:29→21:29)
[2019-07-06] MEDS: Levothyroxine 100 MCG Tablet 200 MCG PO (05:29)
[2019-07-06] MEDS: Nystatin Powder 15gm Bottle 1 APPLIC TOPICAL ×2 (06:10→20:54)
[2019-07-06 06:52] VITALS: BP 136/93; PULSE 89; RESP 18; TEMP 36.3; O2SAT 97
[2019-07-06 07:06] LABS: Hematocrit 31.3 % (37-47); Hemoglobin 10.5 g/dL (12.0-15.0); Mean Corp Hgb Conc 33.5 g/dL (32-36); Mean Corpuscular Hgb 30.2 pg (27.0-32.0); Mean Corpuscular Volume 89.9 fL (81-99); Platelet Count 188 K/mm3 (150-450); RBC Distribution Width CV 15.9 % (11.6-14.6); RBC Distribution Width SD 49.8 fl (35.1-43.9); Red Blood Count 3.48 M/mm3 (4.2-5.4); White Blood Count 12.7 K/mm3 (4.4-11.0)
[2019-07-06 07:32] LABS: Anion Gap 8 (5-15); BUN 12 mg/dL (7-18); BUN/Creat Ratio 20.8 RATIO (10-20); Calcium,Total 8.3 mg/dL (8.5-10.1); Chloride 85 mmol/L (98-107); Creatinine, Serum 0.58 mg/dL (0.55-1.02); EST Glomerular Filtration Rate 114 mL/min (>60); Est Glom Filt Rate - Afr Amer 138 mL/min (>60); Estimated Creatinine Clearance 104.07 ml/min; Glucose 94 mg/dL (74-106); Magnesium 1.7 mg/dL (1.6-2.6); Phosphorus 3.7 mg/dL (2.5-4.9); Potassium 4.2 mmol/L (3.5-5.1); Sodium Level 118 mmol/L (136-145)
[2019-07-06] MEDS: buPROPion 75 MG Tablet PO ×2 (08:44→20:53)
[2019-07-06] MEDS: Ascorbic Acid 500 MG Tablet PO ×2 (08:44→16:36)
[2019-07-06] MEDS: Atenolol 25 MG Tablet PO ×2 (08:44→20:53)
[2019-07-06] MEDS: Folic Acid/Vitamin B Comp W-C 1 Capsule 1 CAP PO (08:44)
[2019-07-06] MEDS: Loratadine 10 MG Tablet PO (08:44)
[2019-07-06] MEDS: busPIRone 5 MG Tablet 10 MG PO ×2 (08:45→20:54)
[2019-07-06] MEDS: Famotidine 20 MG Tablet PO ×2 (08:45→20:53)
[2019-07-06] MEDS: Venlafaxine XR 150 MG Capsule PO (08:45)
[2019-07-06] MEDS: Doxycycline 100 MG CAPSULE PO (08:45)
[2019-07-06] MEDS: Acetaminophen 500 MG Tablet 1000 MG PO ×2 (08:46→20:53)
[2019-07-06] MEDS: Senna/Docusate Sodium 1 Tablet 2 TABLET PO ×2 (08:49→20:53)
[2019-07-06] MEDS: Polyethylene Glycol 3350 17 GM PACKET PO (08:49)
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
[2019-07-06 10:07] LABS: Osmolality, Serum 244 mOsm/KG (275-295)
[2019-07-06 10:14] LABS: Red Blood Cells-Urine 0 SEEN /hpf (0-5)
[2019-07-06 10:18] LABS: Color, Urine Yellow (Yellow); Glucose, Dipstick Normal (Normal); Ketone-Dipstick 5 mg/dl (Negative); Leukocyte Esterase-Dipstick 25 /ul (Negative); Nitrite-Dipstick Negative (Negative); Occult Blood-Urine Negative /ul (Negative); Protein-Dipstick 15 mg/dl (Negative); Urine Bilirubin Dipstick Negative (Negative); Urine Clarity Sl. Cloudy (Clear); Urine Urobilinogen 4 mg/dl (Normal)
[2019-07-06 10:24] LABS: Osmolality, Urine 701 mOsm/KG
[2019-07-06 10:29] LABS: White Blood Cells 0-5 SEEN /hpf (0-5)
[2019-07-06 10:30] LABS: Bacteria RARE /hpf (None Seen); Mucous, Urine RARE /hpf (<or=2+); Squamous Epithelial Cells - UA 0-5 SEEN /hpf (5-10)
[2019-07-06] MEDS: Multivitamins,Therapeutic Tablet 1 TABLET PO (11:54)
[2019-07-06] MEDS: 0.9% Normal Saline 1,000 ML 500 ML IV (12:42)
[2019-07-06 14:11] VITALS: O2SAT 94
[2019-07-06] MEDS: 0.9% Normal Saline 1,000 ML 75 ML IV (14:58)
--- NOTE | 2019-07-06 15:14 | CASEMGMT ---
Social Work Behavioral Health will visit with pt 07/06 at 2 pm. Pt notified. MEGHAN RubioW
[2019-07-06 15:48] LABS: Anion Gap 7 (5-15); BUN 12 mg/dL (7-18); BUN/Creat Ratio 19.2 RATIO (10-20); Calcium,Total 8.1 mg/dL (8.5-10.1); Chloride 84 mmol/L (98-107); Creatinine, Serum 0.63 mg/dL (0.55-1.02); EST Glomerular Filtration Rate 104 mL/min (>60); Est Glom Filt Rate - Afr Amer 126 mL/min (>60); Estimated Creatinine Clearance 95.81 ml/min; Glucose 102 mg/dL (74-106); Potassium 3.9 mmol/L (3.5-5.1); Sodium Level 121 mmol/L (136-145)
[2019-07-06 19:40] VITALS: BP 112/69; PULSE 77; RESP 16; TEMP 36.8; O2SAT 100
[2019-07-07] MEDS: 0.9% Normal Saline 1,000 ML 75 ML IV (04:30)
[2019-07-07] MEDS: Enoxaparin 40 MG/0.4 ML Syringe SC (05:08)
[2019-07-07] MEDS: Levothyroxine 100 MCG Tablet 200 MCG PO (05:09)
[2019-07-07] MEDS: Nystatin Powder 15gm Bottle 1 APPLIC TOPICAL ×2 (05:10→21:31)
[2019-07-07 06:40] LABS: Anion Gap 11 (5-15); BUN 15 mg/dL (7-18); BUN/Creat Ratio 31.3 RATIO (10-20); Calcium,Total 7.9 mg/dL (8.5-10.1); Chloride 85 mmol/L (98-107); Creatinine, Serum 0.48 mg/dL (0.55-1.02); EST Glomerular Filtration Rate 142 mL/min (>60); Est Glom Filt Rate - Afr Amer 171 mL/min (>60); Estimated Creatinine Clearance 125.75 ml/min; Glucose 91 mg/dL (74-106); Potassium 4.3 mmol/L (3.5-5.1); Sodium Level 121 mmol/L (136-145)
[2019-07-07] MEDS: buPROPion 75 MG Tablet PO ×2 (08:30→21:29)
[2019-07-07] MEDS: Doxycycline 100 MG CAPSULE PO (08:30)
[2019-07-07] MEDS: Famotidine 20 MG Tablet PO ×2 (08:30→21:28)
[2019-07-07] MEDS: Venlafaxine XR 150 MG Capsule PO (08:30)
[2019-07-07] MEDS: busPIRone 5 MG Tablet 10 MG PO ×2 (08:30→21:27)
[2019-07-07] MEDS: Loratadine 10 MG Tablet PO (08:30)
[2019-07-07] MEDS: Acetaminophen 500 MG Tablet 1000 MG PO ×2 (08:30→21:28)
[2019-07-07] MEDS: Ascorbic Acid 500 MG Tablet PO ×2 (08:30→16:41)
[2019-07-07] MEDS: Folic Acid/Vitamin B Comp W-C 1 Capsule 1 CAP PO (08:30)
[2019-07-07] MEDS: oxyCODONE 5 MG Tablet PO ×3 (08:31→17:11)
[2019-07-07] MEDS: Atenolol 25 MG Tablet PO ×2 (09:21→21:31)
[2019-07-07 09:31] VITALS: BP 128/77; PULSE 79; RESP 17; TEMP 36.2; O2SAT 98
[2019-07-07] MEDS: Furosemide 20 MG/2 ML VIAL IV (10:40)
[2019-07-07] MEDS: Multivitamins,Therapeutic Tablet 1 TABLET PO (11:57)
[2019-07-07 19:47] VITALS: BP 113/66; PULSE 78; RESP 16; TEMP 37.1; O2SAT 96
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
[2019-07-07] MEDS: 0.9% Saline Lock 10 ML Syringe IV (21:39)
[2019-07-07 22:00] VITALS: PULSE 74; RESP 16
[2019-07-08] MEDS: oxyCODONE 5 MG Tablet PO ×4 (04:04→21:07)
[2019-07-08] MEDS: Enoxaparin 40 MG/0.4 ML Syringe SC (06:23)
[2019-07-08] MEDS: Levothyroxine 100 MCG Tablet 200 MCG PO (06:23)
[2019-07-08] MEDS: Nystatin Powder 15gm Bottle 1 APPLIC TOPICAL ×2 (06:24→21:20)
[2019-07-08 07:08] VITALS: BP 126/74; PULSE 74; RESP 18; TEMP 36.7; O2SAT 94
[2019-07-08 07:34] LABS: Anion Gap 9 (5-15); BUN 15 mg/dL (7-18); BUN/Creat Ratio 28.6 RATIO (10-20); Chloride 83 mmol/L (98-107); Creatinine, Serum 0.52 mg/dL (0.55-1.02); EST Glomerular Filtration Rate 127 mL/min (>60); Est Glom Filt Rate - Afr Amer 154 mL/min (>60); Estimated Creatinine Clearance 116.08 ml/min; Glucose 89 mg/dL (74-106); Sodium Level 120 mmol/L (136-145)
[2019-07-08] MEDS: Folic Acid/Vitamin B Comp W-C 1 Capsule 1 CAP PO (07:59)
[2019-07-08] MEDS: Ascorbic Acid 500 MG Tablet PO ×2 (07:59→16:35)
[2019-07-08] MEDS: Loratadine 10 MG Tablet PO (07:59)
[2019-07-08] MEDS: busPIRone 5 MG Tablet 10 MG PO ×2 (07:59→21:10)
[2019-07-08] MEDS: Doxycycline 100 MG CAPSULE PO (07:59)
[2019-07-08] MEDS: buPROPion 75 MG Tablet PO ×2 (08:00→21:12)
[2019-07-08] MEDS: Atenolol 25 MG Tablet PO ×2 (08:00→21:11)
[2019-07-08] MEDS: Venlafaxine XR 150 MG Capsule PO (08:00)
[2019-07-08] MEDS: Famotidine 20 MG Tablet PO ×2 (08:00→21:08)
[2019-07-08] MEDS: Acetaminophen 500 MG Tablet 1000 MG PO ×2 (08:00→21:11)
[2019-07-08] MEDS: Menthol/Lanolin/Calamine/Znox 113 GM Tube 1 APPLIC TOPICAL ×2 (08:06→21:19)
--- NOTE | 2019-07-08 10:38 | CASEMGMT ---
Addendum entered by Jenna Cristina 07/08/19 14:53: Pt completed JAVI lolita. Submitted to S. Original Note: Social Work IDT met with patient for Team meeting. Discussed patient's progress in therapy. Pt is max x2 for bed mobility, trailing slideboard, mod x1 and min x1 for stand [place] [facility] however, pt cannot maintain NWBS. Pt is total assist for toileting, wears hospital gowns so has not addressed clothing management, but is min assist for UE bathing. Pt gets SOB - wearing O2. Pt disclosed she was not taking any medications: dep/anx, consistently. Physician explained the bone break and that it will take awhile to heal. Explained insurance. Awaiting outcome from 07/05, but encouraged pt to complete JAVI lolita for SW to submit to get coverage. Discussed SNF placement - pt understand able and agreeable. Provided SNF list. Will continue to follow. Jenna Cristina, MEGHAN RAINES
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
[2019-07-08] MEDS: Multivitamins,Therapeutic Tablet 1 TABLET PO (12:04)
--- NOTE | 2019-07-08 15:41 | CHAPLAIN ---
Type of Pastoral Visit ___ Initial Visit _x__ Follow-up Visit ___ On-call Visit ___ General Patient Visit ___ Spiritual Assessment ___ Family Conference ___ Bereavement ___ Rapid Response ___ Code Blue ___ Other (describe below) Pastoral Care Referral From _x__ Patient ___ Family ___ Nurse ___ Physician ___ Java Web Application Developer ___ Manager Furniture ___ Other (describe below) Sacrament/Intervention _x__ Active listening ___ Anointing ___ Mandaen ___ Bereavement ___ Communion ___ Shara exploration ___ ___ Life review _x__ Prayer ___ Reconciliation ___ Sacrament of Sick _x__ Supportive presence ___ Wedding ___ Other (describe below) Pastoral Comments patient welcomes visit and states it is nice that you came to see me; pt says that she is doing better and sees some progress; pt states that the hardest time is senior living through the therapy when it really hurts; pt says that she is going to SNF after this and is fine with that decision but her father is having a hard time with that; pt welcomes prayer support and visits
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
[2019-07-08 18:42] LABS: Anion Gap 5 (5-15); BUN 13 mg/dL (7-18); BUN/Creat Ratio 20.6 RATIO (10-20); Chloride 85 mmol/L (98-107); Creatinine, Serum 0.63 mg/dL (0.55-1.02); EST Glomerular Filtration Rate 103 mL/min (>60); Est Glom Filt Rate - Afr Amer 124 mL/min (>60); Estimated Creatinine Clearance 95.81 ml/min; Glucose 95 mg/dL (74-106); Potassium 4.1 mmol/L (3.5-5.1); Sodium Level 121 mmol/L (136-145)
[2019-07-08 19:41] VITALS: BP 101/65; PULSE 76; RESP 18; TEMP 36.4; O2SAT 98
[2019-07-08] MEDS: Senna/Docusate Sodium 1 Tablet 2 TABLET PO (21:08)
[2019-07-08] MEDS: SODIUM CHLORIDE 1 GM TABLET 3 GM PO (21:09)
[2019-07-09] MEDS: oxyCODONE 5 MG Tablet PO ×5 (02:03→20:46)
[2019-07-09] MEDS: Enoxaparin 40 MG/0.4 ML Syringe SC (05:13)
[2019-07-09] MEDS: Levothyroxine 100 MCG Tablet 200 MCG PO (05:14)
[2019-07-09] MEDS: SODIUM CHLORIDE 1 GM TABLET 3 GM PO ×3 (05:14→20:45)
[2019-07-09] MEDS: Nystatin Powder 15gm Bottle 1 APPLIC TOPICAL ×3 (05:25→20:46)
[2019-07-09] MEDS: Alendronate Sodium 70 MG Tablet PO (06:59)
[2019-07-09] MEDS: Folic Acid/Vitamin B Comp W-C 1 Capsule 1 CAP PO (07:38)
[2019-07-09] MEDS: Ascorbic Acid 500 MG Tablet PO ×2 (07:38→16:07)
[2019-07-09] MEDS: Doxycycline 100 MG CAPSULE PO (07:39)
[2019-07-09] MEDS: busPIRone 5 MG Tablet 10 MG PO ×2 (07:39→20:46)
[2019-07-09] MEDS: Loratadine 10 MG Tablet PO (07:39)
[2019-07-09] MEDS: Famotidine 20 MG Tablet PO ×2 (07:39→20:44)
[2019-07-09] MEDS: buPROPion 75 MG Tablet PO ×2 (07:40→20:45)
[2019-07-09] MEDS: Atenolol 25 MG Tablet PO ×2 (07:40→20:45)
[2019-07-09] MEDS: Acetaminophen 500 MG Tablet 1000 MG PO ×2 (07:40→20:44)
[2019-07-09] MEDS: Menthol/Lanolin/Calamine/Znox 113 GM Tube 1 APPLIC TOPICAL ×2 (07:44→20:47)
[2019-07-09 08:49] VITALS: BP 108/70; PULSE 79; RESP 16; TEMP 36.8; O2SAT 96
[2019-07-09 09:03] LABS: Anion Gap 8 (5-15); BUN 15 mg/dL (7-18); BUN/Creat Ratio 29.1 RATIO (10-20); Calcium,Total 8.1 mg/dL (8.5-10.1); Chloride 87 mmol/L (98-107); Creatinine, Serum 0.52 mg/dL (0.55-1.02); EST Glomerular Filtration Rate 130 mL/min (>60); Est Glom Filt Rate - Afr Amer 157 mL/min (>60); Estimated Creatinine Clearance 116.08 ml/min; Glucose 92 mg/dL (74-106); Sodium Level 123 mmol/L (136-145)
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
[2019-07-09] MEDS: Furosemide 40 MG Tablet PO (11:26)
[2019-07-09] MEDS: Multivitamins,Therapeutic Tablet 1 TABLET PO (11:29)
[2019-07-09 13:29] LABS: Urine Chloride 101 mmol/L (Not Establ.); Urine Sodium 79 mmol/L (Not Establ.)
[2019-07-09 19:30] VITALS: BP 93/52; PULSE 84; RESP 18; TEMP 36.4; O2SAT 93
[2019-07-09 20:40] VITALS: BP 126/89; PULSE 79; RESP 18; O2SAT 93
[2019-07-09] MEDS: Senna/Docusate Sodium 1 Tablet 2 TABLET PO (20:45)
--- NOTE | 2019-07-10 03:30 | NURSING ---
received phone call from pt dad stating that he got a call from her and she needed assistance. pt was found in high fowlers in the bed with phone in hand and asked if her dad had called us, pt call light was within reach . pt reported that she was incontinent and had dreamed that she was getting ready for an appt but realized that she had more time to get ready and went back to sleep, in the process she was incontinent of urine staff cleaned up pt and changed gown and bedding. pt apologized several times and staff assured her that she was fine. pt positioned for comfort and call was laid on pt chest
[2019-07-10] MEDS: Enoxaparin 40 MG/0.4 ML Syringe SC (05:07)
[2019-07-10] MEDS: Levothyroxine 100 MCG Tablet 200 MCG PO (05:07)
[2019-07-10] MEDS: SODIUM CHLORIDE 1 GM TABLET 3 GM PO ×3 (05:07→20:06)
[2019-07-10] MEDS: Nystatin Powder 15gm Bottle 1 APPLIC TOPICAL ×2 (06:00→20:11)
[2019-07-10 07:00] VITALS: BP 112/61; PULSE 77; RESP 18; TEMP 36.6; O2SAT 99
[2019-07-10 07:10] LABS: Anion Gap 7 (5-15); BUN 14 mg/dL (7-18); BUN/Creat Ratio 23.5 RATIO (10-20); Calcium,Total 8.4 mg/dL (8.5-10.1); Chloride 87 mmol/L (98-107); EST Glomerular Filtration Rate 110 mL/min (>60); Est Glom Filt Rate - Afr Amer 133 mL/min (>60); Glucose 105 mg/dL (74-106); Potassium 3.4 mmol/L (3.5-5.1); Sodium Level 125 mmol/L (136-145)
[2019-07-10] MEDS: buPROPion 75 MG Tablet PO ×2 (08:31→20:14)
[2019-07-10] MEDS: Famotidine 20 MG Tablet PO ×2 (08:31→20:06)
[2019-07-10] MEDS: Doxycycline 100 MG CAPSULE PO (08:32)
[2019-07-10] MEDS: Acetaminophen 500 MG Tablet 1000 MG PO ×2 (08:32→20:06)
[2019-07-10] MEDS: busPIRone 5 MG Tablet 10 MG PO ×2 (08:32→20:05)
[2019-07-10] MEDS: Furosemide 40 MG Tablet PO (08:32)
[2019-07-10] MEDS: Folic Acid/Vitamin B Comp W-C 1 Capsule 1 CAP PO (08:32)
[2019-07-10] MEDS: Loratadine 10 MG Tablet PO (08:32)
[2019-07-10] MEDS: Ascorbic Acid 500 MG Tablet PO ×2 (08:32→17:25)
[2019-07-10] MEDS: oxyCODONE 5 MG Tablet PO ×3 (08:33→18:18)
[2019-07-10] MEDS: Atenolol 25 MG Tablet PO ×2 (08:34→20:05)
[2019-07-10] MEDS: Menthol/Lanolin/Calamine/Znox 113 GM Tube 1 APPLIC TOPICAL ×2 (08:43→20:12)
[2019-07-10] MEDS: Multivitamins,Therapeutic Tablet 1 TABLET PO (12:00)
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
[2019-07-10 19:40] VITALS: BP 111/68; PULSE 78; RESP 20; TEMP 36.6; O2SAT 96
[2019-07-10 20:00] VITALS: BP 103/68; PULSE 83
[2019-07-10] MEDS: Senna/Docusate Sodium 1 Tablet 2 TABLET PO (20:06)
[2019-07-10] MEDS: 0.9% Saline Lock 10 ML Syringe IV (20:14)
[2019-07-11] MEDS: SODIUM CHLORIDE 1 GM TABLET 3 GM PO ×3 (05:41→23:18)
[2019-07-11] MEDS: Levothyroxine 100 MCG Tablet 200 MCG PO (05:41)
[2019-07-11] MEDS: oxyCODONE 5 MG Tablet PO ×3 (05:43→18:29)
[2019-07-11] MEDS: Nystatin Powder 15gm Bottle 1 APPLIC TOPICAL ×2 (05:44→23:19)
[2019-07-11] MEDS: Enoxaparin 40 MG/0.4 ML Syringe SC (05:44)
[2019-07-11 06:27] LABS: Anion Gap 5 (5-15); BUN 13 mg/dL (7-18); BUN/Creat Ratio 22.6 RATIO (10-20); Calcium,Total 8.2 mg/dL (8.5-10.1); Chloride 91 mmol/L (98-107); Creatinine, Serum 0.57 mg/dL (0.55-1.02); EST Glomerular Filtration Rate 115 mL/min (>60); Est Glom Filt Rate - Afr Amer 139 mL/min (>60); Estimated Creatinine Clearance 105.89 ml/min; Glucose 104 mg/dL (74-106); Potassium 3.6 mmol/L (3.5-5.1); Sodium Level 129 mmol/L (136-145)
[2019-07-11 08:00] VITALS: BP 116/70; PULSE 91; RESP 17; TEMP 36.3; O2SAT 100
[2019-07-11] MEDS: busPIRone 5 MG Tablet 10 MG PO ×2 (08:43→23:20)
[2019-07-11] MEDS: Famotidine 20 MG Tablet PO ×2 (08:43→23:19)
[2019-07-11] MEDS: Furosemide 40 MG Tablet PO (08:43)
[2019-07-11] MEDS: Folic Acid/Vitamin B Comp W-C 1 Capsule 1 CAP PO (08:43)
[2019-07-11] MEDS: Loratadine 10 MG Tablet PO (08:44)
[2019-07-11] MEDS: Ascorbic Acid 500 MG Tablet PO ×2 (08:44→16:53)
[2019-07-11] MEDS: Doxycycline 100 MG CAPSULE PO (08:44)
[2019-07-11] MEDS: Acetaminophen 500 MG Tablet 1000 MG PO ×2 (08:44→23:17)
[2019-07-11] MEDS: buPROPion 75 MG Tablet PO ×2 (08:44→23:17)
[2019-07-11] MEDS: Atenolol 25 MG Tablet PO ×2 (08:44→23:18)
[2019-07-11 08:45] VITALS: O2SAT 100
[2019-07-11] MEDS: Menthol/Lanolin/Calamine/Znox 113 GM Tube 1 APPLIC TOPICAL ×2 (08:47→23:19)
[2019-07-11] MEDS: Multivitamins,Therapeutic Tablet 1 TABLET PO (12:19)
--- NOTE | 2019-07-11 15:48 | NURSING ---
neck measurement 46cm.
[2019-07-11 20:16] VITALS: BP 100/63; PULSE 83; RESP 17; TEMP 36.8; O2SAT 92
--- NOTE | 2019-07-11 23:15 | NURSING ---
PT DECLINES ANY ADDITIONAL PAIN MED BESIDES SCHEDULED TYLENOL AT THIS TIME. PT INSTRUCTED AND ENCOURAGED TO USE CALL LIGHT TO NOTIFY STAFF IF SHE DECIDES SHE WANTS ANY PAIN MEDICATION DURING THE NIGHT, PT VERBALIZES UNDERSTANDING.
[2019-07-11] MEDS: Senna/Docusate Sodium 1 Tablet 2 TABLET PO (23:18)
[2019-07-11] MEDS: 0.9% Saline Lock 10 ML Syringe IV (23:26)
--- NOTE | 2019-07-12 03:03 | NURSING ---
PT NOTED TALKING IN HER SLEEP. PT ASKED IF SHE WANTED ANY PAIN MEDICATION AND PT STATES NOT AT THIS TIME. ENCOURAGED TO CALL STAFF IF SHE DECIDES SHE WANTS PAIN MED OR ANYTHING ELSE.
[2019-07-12] MEDS: Nystatin Powder 15gm Bottle 1 APPLIC TOPICAL ×2 (05:19→22:27)
[2019-07-12] MEDS: SODIUM CHLORIDE 1 GM TABLET 3 GM PO ×3 (05:19→22:07)
[2019-07-12] MEDS: Levothyroxine 100 MCG Tablet 200 MCG PO (05:19)
[2019-07-12] MEDS: Enoxaparin 40 MG/0.4 ML Syringe SC (05:20)
[2019-07-12] MEDS: oxyCODONE 5 MG Tablet PO ×2 (05:20→16:36)
[2019-07-12] MEDS: Ascorbic Acid 500 MG Tablet PO ×2 (08:07→16:36)
[2019-07-12] MEDS: Folic Acid/Vitamin B Comp W-C 1 Capsule 1 CAP PO (08:07)
[2019-07-12] MEDS: busPIRone 5 MG Tablet 10 MG PO ×2 (08:07→22:09)
[2019-07-12] MEDS: Doxycycline 100 MG CAPSULE PO (08:08)
[2019-07-12] MEDS: Famotidine 20 MG Tablet PO ×2 (08:08→22:07)
[2019-07-12] MEDS: Loratadine 10 MG Tablet PO (08:08)
[2019-07-12] MEDS: buPROPion 75 MG Tablet PO ×2 (08:09→22:08)
[2019-07-12] MEDS: Acetaminophen 500 MG Tablet 1000 MG PO ×2 (08:09→22:07)
[2019-07-12] MEDS: Atenolol 25 MG Tablet PO ×2 (08:09→22:07)
[2019-07-12] MEDS: Menthol/Lanolin/Calamine/Znox 113 GM Tube 1 APPLIC TOPICAL (08:12)
[2019-07-12 09:24] VITALS: BP 118/77; PULSE 79; RESP 12; TEMP 36.6; O2SAT 96
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
--- NOTE | 2019-07-12 10:34 | NURSING ---
ezio removed from LLE surgical incision at this time. PT tolerated well, no drainage noted.
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
[2019-07-12] MEDS: Multivitamins,Therapeutic Tablet 1 TABLET PO (11:59)
--- NOTE | 2019-07-12 14:01 | CASEMGMT ---
Social Work Spoke with Behavioral Health to f/u on visit. They will decided based on DC plan and days sober. Explained pt will be transferring to a SNF due to NWBS, but will inquire about psych services at the SNFs. Spoke with KATHY Adair - pt called last week to update income and insurance status. Pt was approved for [facility] and [facility] Medicaid effective 06/24 - #[id number]. Notified PFS to add to pt chart. Notified pt. Pt chose [facility] and [facility]. Referrals made. Insurance NRD 07/12. Will ReTeam . Jenna Cristina, MEGHAN AUSTINW
[2019-07-12] MEDS: 0.9% Saline Lock 10 ML Syringe IV (16:36)
[2019-07-12 19:44] VITALS: BP 131/78; PULSE 87; RESP 18; TEMP 36.7; O2SAT 95
[2019-07-12] MEDS: Senna/Docusate Sodium 1 Tablet 2 TABLET PO (22:08)
[2019-07-12 22:30] VITALS: PULSE 87; RESP 18; O2SAT 95
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
--- NOTE | 2019-07-13 04:12 | NURSING ---
Reviewed and agree with DIGITIZER OPERATOR documentation and charting.
[2019-07-13] MEDS: Levothyroxine 100 MCG Tablet 200 MCG PO (05:02)
[2019-07-13] MEDS: Nystatin Powder 15gm Bottle 1 APPLIC TOPICAL ×2 (05:03→21:38)
[2019-07-13] MEDS: Enoxaparin 40 MG/0.4 ML Syringe SC (05:03)
[2019-07-13] MEDS: SODIUM CHLORIDE 1 GM TABLET 3 GM PO (05:03)
[2019-07-13] MEDS: 0.9% Saline Lock 10 ML Syringe IV ×2 (05:09→22:51)
[2019-07-13 05:46] LABS: Hematocrit 31.6 % (37-47); Hemoglobin 9.8 g/dL (12.0-15.0)
[2019-07-13 06:10] LABS: Anion Gap 5 (5-15); BUN 16 mg/dL (7-18); BUN/Creat Ratio 25.8 RATIO (10-20); Calcium,Total 8.6 mg/dL (8.5-10.1); Chloride 98 mmol/L (98-107); Creatinine, Serum 0.62 mg/dL (0.55-1.02); EST Glomerular Filtration Rate 105 mL/min (>60); Est Glom Filt Rate - Afr Amer 127 mL/min (>60); Estimated Creatinine Clearance 97.35 ml/min; Glucose 115 mg/dL (74-106); Potassium 3.8 mmol/L (3.5-5.1); Sodium Level 136 mmol/L (136-145)
[2019-07-13] MEDS: Ascorbic Acid 500 MG Tablet PO ×2 (07:36→16:48)
[2019-07-13] MEDS: oxyCODONE 5 MG Tablet PO ×2 (07:36→12:06)
[2019-07-13] MEDS: Folic Acid/Vitamin B Comp W-C 1 Capsule 1 CAP PO (07:36)
[2019-07-13] MEDS: busPIRone 5 MG Tablet 10 MG PO ×2 (07:37→21:34)
[2019-07-13] MEDS: Doxycycline 100 MG CAPSULE PO (07:37)
[2019-07-13] MEDS: Loratadine 10 MG Tablet PO (07:37)
[2019-07-13] MEDS: Famotidine 20 MG Tablet PO ×2 (07:37→21:34)
[2019-07-13] MEDS: buPROPion 75 MG Tablet PO ×2 (07:38→21:34)
[2019-07-13] MEDS: Atenolol 25 MG Tablet PO ×2 (07:38→21:34)
[2019-07-13] MEDS: Acetaminophen 500 MG Tablet 1000 MG PO ×2 (07:38→21:37)
[2019-07-13] MEDS: Menthol/Lanolin/Calamine/Znox 113 GM Tube 1 APPLIC TOPICAL ×2 (07:40→21:38)
[2019-07-13 07:45] VITALS: BP 127/74; PULSE 82; RESP 16; TEMP 36.6; O2SAT 100
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
[2019-07-13 11:30] LABS: Magnesium 1.9 mg/dL (1.6-2.6)
[2019-07-13] MEDS: Multivitamins,Therapeutic Tablet 1 TABLET PO (12:06)
--- NOTE | 2019-07-13 15:19 | CASEMGMT ---
Social Work [facility] denied pt. [facility] accepted pt. Notified pt - pt agreeable to [facility] as [facility]. Will await outcome from insurance update on this date. Jenna Cristina, FACTORY LAY OUT ENGINEER PARARESCUE MANAGER
[2019-07-13] MEDS: Senna/Docusate Sodium 1 Tablet 2 TABLET PO (21:35)
[2019-07-13 21:45] VITALS: BP 118/77; PULSE 90; RESP 16; TEMP 36.4; O2SAT 93
--- NOTE | 2019-07-14 03:25 | NURSING ---
Reviewed and agree with SENIOR ADVOCATE documentation and charting.
[2019-07-14] MEDS: Levothyroxine 100 MCG Tablet 200 MCG PO (05:37)
[2019-07-14] MEDS: Enoxaparin 40 MG/0.4 ML Syringe SC (05:37)
[2019-07-14] MEDS: oxyCODONE 5 MG Tablet PO ×2 (05:42→20:08)
[2019-07-14] MEDS: Nystatin Powder 15gm Bottle 1 APPLIC TOPICAL ×2 (06:05→21:37)
[2019-07-14 07:34] LABS: Magnesium 1.8 mg/dL (1.6-2.6)
[2019-07-14 08:45] VITALS: BP 132/80; PULSE 80; RESP 20; TEMP 36.6; O2SAT 100
[2019-07-14] MEDS: Folic Acid/Vitamin B Comp W-C 1 Capsule 1 CAP PO (08:51)
[2019-07-14] MEDS: Loratadine 10 MG Tablet PO (08:51)
[2019-07-14] MEDS: Doxycycline 100 MG CAPSULE PO (08:51)
[2019-07-14] MEDS: Ascorbic Acid 500 MG Tablet PO ×2 (08:51→17:06)
[2019-07-14] MEDS: busPIRone 5 MG Tablet 10 MG PO ×2 (08:51→21:36)
[2019-07-14] MEDS: Senna/Docusate Sodium 1 Tablet 2 TABLET PO ×2 (08:52→21:36)
[2019-07-14] MEDS: Famotidine 20 MG Tablet PO ×2 (08:52→21:36)
[2019-07-14] MEDS: SODIUM CHLORIDE 1 GM TABLET 3 GM PO (08:52)
[2019-07-14] MEDS: Acetaminophen 500 MG Tablet 1000 MG PO ×2 (08:52→21:36)
[2019-07-14] MEDS: Atenolol 25 MG Tablet PO ×2 (08:52→21:36)
[2019-07-14] MEDS: buPROPion 75 MG Tablet PO ×2 (08:53→21:39)
[2019-07-14] MEDS: Menthol/Lanolin/Calamine/Znox 113 GM Tube 1 APPLIC TOPICAL ×2 (09:00→21:37)
[2019-07-14] MEDS: Multivitamins,Therapeutic Tablet 1 TABLET PO (11:37)
[2019-07-14] MEDS: 0.9% Saline Lock 10 ML Syringe IV ×2 (11:38→20:08)
--- NOTE | 2019-07-14 15:40 | CHAPLAIN ---
Type of Pastoral Visit ___ Initial Visit _x__ Follow-up Visit ___ On-call Visit ___ General Patient Visit ___ Spiritual Assessment ___ Family Conference ___ Bereavement ___ Rapid Response ___ Code Blue ___ Other (describe below) Pastoral Care Referral From _x__ Patient ___ Family ___ Nurse ___ Physician ___ Counter Supply Worker ___ Pest Control Operator ___ Other (describe below) Sacrament/Intervention _x__ Active listening ___ Anointing ___ Alevism ___ Bereavement ___ Communion ___ Shara exploration ___ ___ Life review _x__ Prayer ___ Reconciliation ___ Sacrament of Sick _x__ Supportive presence ___ Wedding ___ Other (describe below) Pastoral Comments
--- NOTE | 2019-07-14 15:50 | CASEMGMT ---
Social Work Insurance issued [id number] with DC 07/14. Notified pt and [facility]. [facility] to start precert with [facility]. Cot transport scheduled with Physicians at 3 pm. [id number] completed MEGHAN RubioW
--- NOTE | 2019-07-14 20:23 | NURSING ---
2014 when IV flushed at this time, site noted to be pink at insertion site. IV flushed well but pt stated that it was uncomfortable when flushed. IV d/c'd at this time due to possible infiltration. When IV catheter d/c'd catheter intact with some saline leakage from entry point. pt educated on IV infiltration and pt states she understands. pt tolerated procedure well and medicated for pain at this time. will continue to monitor site for swelling and ecchymosis.
[2019-07-14 21:30] VITALS: RESP 18; O2SAT 94
[2019-07-14 22:00] VITALS: BP 126/80; PULSE 85; RESP 18; TEMP 36.8; O2SAT 94
[2019-07-15] MEDS: Levothyroxine 100 MCG Tablet 200 MCG PO (05:10)
[2019-07-15] MEDS: Enoxaparin 40 MG/0.4 ML Syringe SC (05:10)
[2019-07-15] MEDS: Nystatin Powder 15gm Bottle 1 APPLIC TOPICAL (05:12)
[2019-07-15 07:30] VITALS: BP 128/81; PULSE 79; RESP 20; TEMP 36.7; O2SAT 98
[2019-07-15 08:07] LABS: Anion Gap 5 (5-15); BUN 17 mg/dL (7-18); Calcium,Total 8.6 mg/dL (8.5-10.1); Chloride 101 mmol/L (98-107); Creatinine, Serum 0.53 mg/dL (0.55-1.02); EST Glomerular Filtration Rate 126 mL/min (>60); Est Glom Filt Rate - Afr Amer 152 mL/min (>60); Estimated Creatinine Clearance 113.89 ml/min; Glucose 108 mg/dL (74-106); Potassium 4.1 mmol/L (3.5-5.1); Sodium Level 137 mmol/L (136-145)
[2019-07-15] MEDS: oxyCODONE 5 MG Tablet PO ×2 (08:46→14:47)
[2019-07-15] MEDS: Folic Acid/Vitamin B Comp W-C 1 Capsule 1 CAP PO (08:47)
[2019-07-15] MEDS: Ascorbic Acid 500 MG Tablet PO (08:47)
[2019-07-15] MEDS: busPIRone 5 MG Tablet 10 MG PO (08:47)
[2019-07-15] MEDS: Famotidine 20 MG Tablet PO (08:48)
[2019-07-15] MEDS: Doxycycline 100 MG CAPSULE PO (08:48)
[2019-07-15] MEDS: Loratadine 10 MG Tablet PO (08:48)
[2019-07-15] MEDS: Atenolol 25 MG Tablet PO (08:49)
[2019-07-15] MEDS: Senna/Docusate Sodium 1 Tablet 2 TABLET PO (08:49)
[2019-07-15] MEDS: SODIUM CHLORIDE 1 GM TABLET 3 GM PO (08:49)
[2019-07-15] MEDS: Acetaminophen 500 MG Tablet 1000 MG PO (08:50)
[2019-07-15] MEDS: buPROPion 75 MG Tablet PO (08:50)
[2019-07-15] MEDS: Menthol/Lanolin/Calamine/Znox 113 GM Tube 1 APPLIC TOPICAL (09:58)
[2019-07-15] MEDS: Multivitamins,Therapeutic Tablet 1 TABLET PO (11:44)
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
--- NOTE | 2019-07-15 15:15 | NURSING ---
Discharge to [facility] and report given to ongoing nurse.
== END 2019-07-15 15:15 | DRG 560 ==
PROVIDERS: Internal Medicine Nephrology; Admitting Provider Internal Medicine; PCP Family Medicine; Referring Provider Internal Medicine; Visit Provider Internal Medicine
DX: S22.20XD Unspecified fracture of sternum, subsequent encounter for fracture with routine healing (principal); D62 Acute posthemorrhagic anemia; Z68.41 Body mass index [BMI] 40.0-44.9, adult; E22.2 Syndrome of inappropriate secretion of antidiuretic hormone; S22.43XD Multiple fractures of ribs, bilateral, subsequent encounter for fracture with routine healing; S72.402D Unspecified fracture of lower end of left femur, subsequent encounter for closed fracture with routine healing; V89.2XXD Person injured in unspecified motor-vehicle accident, traffic, subsequent encounter; K70.10 Alcoholic hepatitis without ascites; T79.6XXD Traumatic ischemia of muscle, subsequent encounter; K86.9 Disease of pancreas, unspecified; Z91.14 Patient's other noncompliance with medication regimen; S27.329D Contusion of lung, unspecified, subsequent encounter; M17.11 Unilateral primary osteoarthritis, right knee; E03.9 Hypothyroidism, unspecified; K21.9 Gastro-esophageal reflux disease without esophagitis; F41.9 Anxiety disorder, unspecified; I10 Essential (primary) hypertension; F32.9 Major depressive disorder, single episode, unspecified; F10.20 Alcohol dependence, uncomplicated; E66.01 Morbid (severe) obesity due to excess calories; Z86.14 Personal history of Methicillin resistant Staphylococcus aureus infection; G89.29 Other chronic pain; G47.33 Obstructive sleep apnea (adult) (pediatric)
CPT/HCPCS: 36415; 71045; 80048; 80053; 81001; 82306; 82436; 82533; 83036; 83735; 83930; 83935; 84100; 84133; 84300; 84436; 84439; 84443; 85014; 85018; 85025; 85027; 85610; 87086; 94667; 94668; 94762; 97110; 97162; 97166; 97530; 97535; 97542; 97802; 99251; J7030; A4216; G0463; J1940

== ENCOUNTER → 2019-08-11 09:38 | Outpatient (CLI) | payer MEDICAID, SELFPAY ==
[2019-07-02 11:44] VITALS: BMI 44.9
--- NOTE | 2019-08-11 09:39 | RAD_ITS ---
STUDY: X-RAY - LEFT FEMUR REASON FOR STUDY: Female, 59 years old. DISTAL FEMUR FX FOLLOW UP TECHNIQUE: 4 view(s) of the femur. COMPARISON: Comparison is made with prior study dated June 26, 2019. FINDINGS: The patient is status post open reduction and internal fixation of the distal comminuted fracture of the femur. There is good alignment. Minimal healing is seen. Normal visualized soft tissue structure. RAD/Femur Min 2 Views IMPRESSION: Status post ORIF of the distal femoral fracture. There is good alignment. Electronically Signed: Edilberto Wright, at 15:43 EDT , Service support ,
== END ==
PROVIDERS: PCP Family Medicine; Referring Provider Orthopaedic Surgery; Visit Provider Orthopaedic Surgery
DX: S72.92XA Unspecified fracture of left femur, initial encounter for closed fracture (principal); X58.XXXA Exposure to other specified factors, initial encounter; Y93.9 Activity, unspecified; Y92.9 Unspecified place or not applicable; Y99.9 Unspecified external cause status
CPT/HCPCS: 73552

== ENCOUNTER → 2019-10-20 12:00 | Outpatient (CLI) | payer MEDICAID, SELFPAY ==
[2019-10-20 11:13] VITALS: BMI 44.9
[2019-10-20 15:34] LABS: Absolute Lymphocyte Count 1.38 X10^3/uL (0.83-4.51); Absolute Neutrophil Count 4.6 X10^3/uL (2.0-7.7); Basophil# 0.04 X10^3/uL; Basophil% 0.6 % (0-1); Eosinophil# 0.15 X10^3/uL; Eosinophils% 2.2 % (0-5); Hematocrit 38.4 % (37-47); Hemoglobin 11.8 g/dL (12.0-15.0); Lymphocyte # 1.38 X10^3/ul (4.0); Lymphocyte % 20.5 % (19-41); Mean Corp Hgb Conc 30.7 g/dL (32-36); Mean Corpuscular Hgb 27.3 pg (27.0-32.0); Mean Corpuscular Volume 88.7 fL (81-99); Mean Platelet Vol. 10.3 fl (6.2-12.0); Monocyte# 0.51 X10^3/uL; Monocyte% 7.6 % (0-10); NRBC Flagged by Analyzer 0 % (0-5); Neutrophil # 4.63 X10^3/uL (2.7-7.7); Neutrophil % 68.7 % (47-70); Platelet Count 273 K/mm3 (150-450); RBC Distribution Width CV 16.3 % (11.6-14.6); RBC Distribution Width SD 53.1 fl (35.1-43.9); Red Blood Count 4.33 M/mm3 (4.2-5.4); White Blood Count 6.7 K/mm3 (4.4-11.0)
[2019-10-20 15:45] LABS: Vitamin D,25 Hydroxy 33.1 ng/mL
[2019-10-20 15:50] LABS: ALB/GLOB Ratio 0.7 RATIO (0.9-2.4); AST(SGOT) 13 U/L (15-37); Alanine Aminotransfer ALT/SGPT 18 U/L (13-56); Albumin, Serum 2.8 g/dL (3.2-5.0); Alkaline Phosphatase 71 U/L (45-117); Anion Gap 5 (5-15); BUN 5 mg/dL (7-18); BUN/Creat Ratio 6.2 RATIO (10-20); Calcium,Total 8.8 mg/dL (8.5-10.1); Chloride 100 mmol/L (98-107); Cholesterol 208 mg/dL (200); EST Glomerular Filtration Rate 78 mL/min (>60); Est Glom Filt Rate - Afr Amer 94 mL/min (>60); Glucose 105 mg/dL (74-106); High Density Lipoprotein 60 mg/dL; Potassium 3.5 mmol/L (3.5-5.1); Protein, Total 6.8 g/dL (6.4-8.2); Sodium Level 136 mmol/L (136-145); T4 Free Direct 1.51 ng/dL (0.76-1.46); Thyroid Stim Hormone (TSH) 8.25 uIU/mL (0.358-3.74); Triglycerides 94 mg/dL; Very Low Density Lipoprotein 19 mg/dL (5-40)
== END ==
PROVIDERS: PCP Family Medicine; Referring Provider Nurse Practitioner Family; Visit Provider Nurse Practitioner Family
DX: E03.9 Hypothyroidism, unspecified (principal); E87.1 Hypo-osmolality and hyponatremia; I10 Essential (primary) hypertension; E55.9 Vitamin D deficiency, unspecified
CPT/HCPCS: 36415; 80053; 80061; 82306; 84439; 84443; 85025

== ENCOUNTER → 2019-11-04 14:11 | Outpatient (CLI) | payer MEDICAID, SELFPAY ==
[2019-10-20 11:13] VITALS: BMI 44.9
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
== END ==
PROVIDERS: PCP Family Medicine; Referring Provider Nurse Practitioner Family; Visit Provider Nurse Practitioner Family
DX: Z13.9 Encounter for screening, unspecified (principal); S22.49XA Multiple fractures of ribs, unspecified side, initial encounter for closed fracture; E55.9 Vitamin D deficiency, unspecified; X58.XXXA Exposure to other specified factors, initial encounter; Y93.9 Activity, unspecified; Y92.9 Unspecified place or not applicable; Y99.9 Unspecified external cause status
CPT/HCPCS: 77080

== ENCOUNTER 2019-11-05 15:00 | Outpatient (RCR) | payer MEDICAID, SELFPAY ==
[2019-08-11 10:11] VITALS: BMI 44.9
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
--- NOTE | 2020-02-01 18:28 | HP.PT.NRP ---
TIFFANY YOST was seen in my office for initial evaluation on 10/04/19. The following Plan of Care was established for this patient: Initial Frequency: 3x /Week Initial Duration: 2 Months Patient/Client Instruction: Educate patient on: Condition, Plan of Care For the Purpose of:: To increase ROM, To improve muscle performance and motor function, To increase tolerance to activity/condition/position, To improve ability of physical actions for home/community/work/leisure Therapeutic Exercise to Include: Strength training, Balance training, Flexibilty training, Gait and locomotor training, Neuromotor development, Passive ROM, Active ROM For the Purpose of:: To improve muscle performance and motor function, To increase tolerance to activity/condition/position, To improve ability of physical actions for home/community/work/leisure, To improve gait and locomotor functions This patient was last seen in our office 11/05/19. Pertinent comments regarding their Physical therapy will appear below: Pt seen 11 visits of POC and cancelled last 5 as she was going to a NH and would get what she needed there. I will discontinue her at this time. At this point I will be discontinuing this patient from physical therapy. I would be happy to see this patient again in the future if found appropriate by the physician. Thank you! Ryan Ashby, DPT, OCS, CSCS
== END 2019-11-05 19:00 | disposition home or self-care (01) ==
LOC: PT 15:00
PROVIDERS: PCP Family Medicine; Referring Provider Nurse Practitioner Family; Visit Provider Nurse Practitioner Family
DX: S72.462D Displaced supracondylar fracture with intracondylar extension of lower end of left femur, subsequent encounter for closed fracture with routine healing (principal); R53.1 Weakness; R26.89 Other abnormalities of gait and mobility
CPT/HCPCS: 97110; 97116; 97162; 97166

== ENCOUNTER 2019-11-17 05:45 | Inpatient (IN) | payer MEDICAID, SELFPAY ==
[2019-10-20 11:13] VITALS: BMI 44.9
[2019-11-17] VITALS (45 sets, daily range): BP systolic 90–163; BP diastolic 31–120; PULSE 91–162; RESP 12–25; TEMP 36.4–37.1; O2SAT 89–99; BMI 40.9; BMI 40.2
--- NOTE | 2019-11-17 05:48 | RAD_ITS ---
STUDY: X-RAY CHEST REASON FOR EXAM: Female, 59 years old. S/P FALL -- C/O DYSPNEA TECHNIQUE: Frontal view COMPARISON: 07/06/2019 FINDINGS: Lungs are expanded. There are infiltrates at the RIGHT lung base. There is no demonstrated pleural abnormality. Normal size heart. Normal mediastinum and vicki. Normal visualized pulmonary arteries. Normal visualized aortic arch and descending thoracic aorta. Normal visualized thoracic spine. There is hardware transfixing an old fracture of the RIGHT humerus. There is an old healed LEFT clavicle fracture. There is no demonstrated abnormality of the visualized soft tissue structures of the upper abdomen. RAD/Chest 1 View (Portable) IMPRESSION: Faint RIGHT lower lobe infiltrate.. Electronically Signed: Tyson Berry MD at 6:57 EDT , Service support ,
--- NOTE | 2019-11-17 05:48 | EKG12_ITS ---
Test Reason : ARRYTHMIA Blood Pressure : / mmHG Vent. Rate : 106 BPM Atrial Rate : 106 BPM P-R Int : 140 ms QRS Dur : 078 ms QT Int : 364 ms P-R-T Axes : 022 -35 044 degrees QTc Int : 483 ms Sinus tachycardia Left axis deviation Abnormal ECG When compared with ECG of 17-NOV-2019 05:59, MANUAL COMPARISON REQUIRED, DATA IS UNCONFIRMED Confirmed by WILFREDO FERGUSON, WILLIAN ([id number]), brands editor DARRELL MURILLO ([id number]) on 11/23/2019 12:49:25 PM Referred By: MICHAEL Confirmed By:WILLIAN VILLALOBOS MD
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
[2019-11-17] MEDS: 0.9% Normal Saline 1,000 ML 1000 ML IV (06:01)
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
[2019-11-17 06:04] LABS: Absolute Lymphocyte Count 0.64 X10^3/uL (0.83-4.51); Absolute Neutrophil Count 17.7 X10^3/uL (2.0-7.7); Basophil# 0.03 X10^3/uL; Basophil% 0.2 % (0-1); Eosinophil# 0.02 X10^3/uL; Eosinophils% 0.1 % (0-5); Hematocrit 40.4 % (37-47); Hemoglobin 13.8 g/dL (12.0-15.0); Lymphocyte # 0.64 X10^3/ul (4.0); Lymphocyte % 3.3 % (19-41); Mean Corp Hgb Conc 34.2 g/dL (32-36); Mean Corpuscular Hgb 27.1 pg (27.0-32.0); Mean Corpuscular Volume 79.4 fL (81-99); Mean Platelet Vol. 9.1 fl (6.2-12.0); Monocyte% 4.6 % (0-10); NRBC Flagged by Analyzer 0 % (0-5); Neutrophil # 17.73 X10^3/uL (2.7-7.7); Neutrophil % 91.2 % (47-70); Platelet Count 196 K/mm3 (150-450); RBC Distribution Width CV 14.4 % (11.6-14.6); RBC Distribution Width SD 41.1 fl (35.1-43.9); Red Blood Count 5.09 M/mm3 (4.2-5.4); White Blood Count 19.4 K/mm3 (4.4-11.0)
[2019-11-17] MEDS: dilTIAZem 25 MG/5 ML Vial IV BOLUS ×2 (06:04→07:12)
[2019-11-17] MEDS: Diphth,Pertuss(Acell),Tet Vac 0.5 ML Vial IM (06:04)
[2019-11-17 06:38] LABS: ALB/GLOB Ratio 0.8 RATIO (0.9-2.4); AST(SGOT) 137 U/L (15-37); Alanine Aminotransfer ALT/SGPT 65 U/L (13-56); Albumin, Serum 3.2 g/dL (3.2-5.0); Alkaline Phosphatase 119 U/L (45-117); Anion Gap 21 (5-15); BUN 4 mg/dL (7-18); Calcium,Total 8.3 mg/dL (8.5-10.1); Chloride 72 mmol/L (98-107); EST Glomerular Filtration Rate 78 mL/min (>60); Est Glom Filt Rate - Afr Amer 95 mL/min (>60); Estimated Creatinine Clearance 74.54 ml/min; Globulin 4.1 g/dL (2.2-4.2); Glucose 168 mg/dL (74-106); Lipase 30 U/L (73-393); Potassium 3.2 mmol/L (3.5-5.1); Protein, Total 7.3 g/dL (6.4-8.2); Sodium Level 114 mmol/L (136-145)
[2019-11-17 06:47] LABS: Partial Thromboplast Time 26.3 Seconds (24.1-36.2)
[2019-11-17] MEDS: LORazepam 2 MG/ML Syringe 1 MG IV (07:01)
[2019-11-17] MEDS: Thiamine Hydrochloride 200 MG/2 ML Vial 100 MG IM (07:01)
[2019-11-17 07:04] LABS: Mucous, Urine 0 SEEN /hpf (<or=2+); Squamous Epithelial Cells - UA 0 SEEN /hpf (5-10)
[2019-11-17 07:11] LABS: Color, Urine Yellow (Yellow); Glucose, Dipstick Normal (Normal); Leukocyte Esterase-Dipstick 100 /ul (Negative); Nitrite-Dipstick Negative (Negative); Occult Blood-Urine 250 /ul (Negative); Protein-Dipstick 30 mg/dl (Negative); Specific Gravity, Urine 1.025 (1.002-1.030); Urine Bilirubin Dipstick Negative (Negative); Urine Clarity Sl. Cloudy (Clear); Urine Urobilinogen Normal (Normal)
[2019-11-17 07:13] LABS: Ketone-Dipstick 150 mg/dl (Negative)
[2019-11-17 07:18] LABS: Bacteria 4+ /hpf (None Seen); White Blood Cells 10-25 SEEN /hpf (0-5)
[2019-11-17 07:19] LABS: Hyaline Cast 5-10 SEEN /lpf (0-5); Red Blood Cells-Urine 0-5 SEEN /hpf (0-5)
[2019-11-17 07:22] LABS: Lactic Acid 8.3 mmol/L (0.4-1.9)
[2019-11-17 07:22] LABS: CPK Total, Creatine Kinase 2115 U/L (26-192)
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
[2019-11-17 07:27] LABS: Amphetamine Urine VISTA NEGATIVE (<1000 ng/mL); Barbiturate Urine VISTA NEGATIVE (< 200 ng/mL); Benzodiazepine Urine VISTA NEGATIVE (< 200 ng/mL); Cocaine Urine VISTA NEGATIVE (< 300 ng/mL); Ecstacy Urine VISTA NEGATIVE (< 500 ng/mL); Methadone Urine VISTA NEGATIVE (< 300 ng/mL); PCP Urine VISTA NEGATIVE (< 25 ng/mL); THC Urine VISTA NEGATIVE (< 50 ng/mL); Vista UDS pH Range 6
[2019-11-17] MEDS: Ceftriaxone 1 GM/50 ML BAG IV (07:29)
--- NOTE | 2019-11-17 08:10 | ED.RN ---
normal saline boluses started per request dr jacobo. icu aware initiated in ed
[2019-11-17] MEDS: Ondansetron 4 MG/2 ML Vial IV (08:29)
[2019-11-17] MEDS: 0.9% Normal Saline 1,000 ML 999 ML IV ×2 (08:45→10:31)
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
--- NOTE | 2019-11-17 09:30 | ECHOD_ITS ---
Reason For Study: A. fib w/RVR Procedure This was a 2D Doppler, Color Flow transthoracic echocardiogram. The study was technically difficult. Contrast injection was performed. Exam performed portable in ICU/CCU. Left Ventricle Based upon the 2D echocardiographic and contrast enhanced images obtained there appears to be normal left ventricular size, wall motion, and systolic function. The estimated ejection fraction is 75 %. Unable to assess diastolic dysfunction. Right Ventricle Based upon the 2D echocardiographic images obtained there appears to be grossly normal right ventricular size and systolic function. Atria The left atrium is mildly enlarged. Normal right atrium. No doppler evidence for ASD. Mitral Valve There is no mitral annular calcification. Normal mitral valve. Trivial mitral valve insufficiency. Tricuspid Valve The tricuspid valve is not well visualized. Aortic Valve The aortic valve is not well visualized. Pulmonic Valve The pulmonic valve is not well visualized. Great Vessels The aortic root is not well visualized. Pericardium/Pleural No pericardial effusion. Medication POSITIVE bubble study for PFO on previous MAXIMINO. Diluted definity 2ml given slow IV push to enhance endocardial definition. MMode/2D Measurements & Calculations LVIDd: 3.0 cm IVSd: 1.2 cm LA dimension(2D): 4.2 cm LVIDs: 2.0 cm LVPWd: 1.3 cm FS: 34.7 % Doppler Measurements & Calculations MV E max jabari: 115.1 cm/sec Ao V2 max: 178.7 cm/sec LV V1 max: 128.4 cm/sec Ao max P.8 mmHg LV V1 max P.6 mmHg PA V2 max: 118.2 cm/sec Interpretation Summary The study was technically difficult. Contrast injection was performed. Based upon the 2D echocardiographic and contrast enhanced images obtained there appears to be normal left ventricular size, wall motion, and systolic function. The estimated ejection fraction is 75 %. The left atrium is mildly enlarged. Trivial mitral valve insufficiency. Unable to assess diastolic dysfunction. Spectral doppler demonstrates a late peaking pattern near the LVOT with a peak velocity approaching 3 m/sec (PG 36 mmHg) c/w a hyperdynamic state. Ordering Physician: Rudy Chavarria Referring Physician: Flash Chavarria M.D. Performed By: Gricelda Shea RDCS
[2019-11-17 10:27] LABS: Ammonia < 10.0 umol/L (11-32)
[2019-11-17] MEDS: Sodium Chloride 0.65% 1 SPRAY SPRAY.BTL 4 SPRAY NASAL ×4 (10:32→21:38)
[2019-11-17] MEDS: Ceftriaxone 1 GM/50 mL Premix x1 IV (10:32)
[2019-11-17] MEDS: Phenobarbital 32.4 MG Tablet 64.8 MG PO ×4 (10:41→21:37)
[2019-11-17] MEDS: Loratadine 10 MG Tablet PO (10:42)
[2019-11-17] MEDS: buPROPion 75 MG Tablet PO ×2 (10:42→21:43)
[2019-11-17] MEDS: Multivitamins,Therapeutic Tablet 1 TABLET PO (10:42)
[2019-11-17] MEDS: guaiFENesin 1,200 MG Tablet 1200 MG PO ×2 (10:42→21:37)
[2019-11-17] MEDS: Enoxaparin 40 MG/0.4 ML Syringe SC (10:42)
[2019-11-17] MEDS: Famotidine 20 MG Tablet PO ×2 (10:42→21:37)
[2019-11-17 10:56] LABS: Reflex Lactate? Y
[2019-11-17 11:12] LABS: Anion Gap 12 (5-15); BUN 4 mg/dL (7-18); BUN/Creat Ratio 7.2 RATIO (10-20); Calcium,Total 7.1 mg/dL (8.5-10.1); Chloride 78 mmol/L (98-107); Creatinine, Serum 0.56 mg/dL (0.55-1.02); EST Glomerular Filtration Rate 119 mL/min (>60); Est Glom Filt Rate - Afr Amer 144 mL/min (>60); Estimated Creatinine Clearance 106.49 ml/min; Glucose 202 mg/dL (74-106); Magnesium 1.5 mg/dL (1.6-2.6); Phosphorus 1.6 mg/dL (2.5-4.9); Sodium Level 118 mmol/L (136-145); T4 Free Direct 0.58 ng/dL (0.76-1.46); Thyroid Stim Hormone (TSH) 1.21 uIU/mL (0.358-3.74)
[2019-11-17] MEDS: 0.9% Normal Saline 1,000 ML 150 ML IV ×2 (11:27→17:46)
[2019-11-17] MEDS: metroNIDAZOLE 500 MG/100 ML BAG 100 MG IV (11:28)
[2019-11-17] MEDS: Amiodarone 360 MG in Dextrose 5% Viaflo Bag 192.8 ML 33.3 MG CONT INF (11:45)
[2019-11-17] MEDS: DiphenhydrAMINE 50 MG/ML Syringe 25 MG IV (12:03)
[2019-11-17] MEDS: 0.9% Saline Lock 10 ML Syringe IV (12:04)
[2019-11-17 12:05] LABS: M R Staph aureus DNA By PCR Negative (Negative); Probe Check PASS; Specimen Processing Control PASS
[2019-11-17] MEDS: Menthol/Lanolin/Calamine/Znox 113 GM Tube 1 APPLIC TOPICAL ×2 (12:09→21:39)
--- NOTE | 2019-11-17 12:17 | NURSING ---
wound photo: right great toe
--- NOTE | 2019-11-17 12:18 | NURSING ---
wound photo: left lateral heel
--- NOTE | 2019-11-17 12:36 | EKG12_ITS ---
Test Reason : FALL Blood Pressure : / mmHG Vent. Rate : 168 BPM Atrial Rate : 166 BPM P-R Int : 000 ms QRS Dur : 084 ms QT Int : 274 ms P-R-T Axes : 000 090 041 degrees QTc Int : 458 ms Atrial fibrillation with rapid ventricular response with premature ventricular or aberrantly conducte d complexes Rightward axis Nonspecific ST abnormality Abnormal ECG Confirmed by WILFREDO FERGUSON, WILLIAN ([id number]), international editorial producer DARRELL MURILLO ([id number]) on 11/19/2019 1:05:00 PM Referred By: EVARISTO Confirmed By:WILLIAN VILLALOBOS MD
[2019-11-17 12:45] LABS: Anion Gap 10 (5-15); BUN 4 mg/dL (7-18); BUN/Creat Ratio 6.1 RATIO (10-20); Calcium,Total 7.3 mg/dL (8.5-10.1); Chloride 77 mmol/L (98-107); Creatinine, Serum 0.66 mg/dL (0.55-1.02); EST Glomerular Filtration Rate 98 mL/min (>60); Est Glom Filt Rate - Afr Amer 118 mL/min (>60); Estimated Creatinine Clearance 90.35 ml/min; Glucose 275 mg/dL (74-106); Lactic Acid 1.7 mmol/L (0.4-1.9); Potassium 3.5 mmol/L (3.5-5.1); Sodium Level 116 mmol/L (136-145)
[2019-11-17 14:38] LABS: Anion Gap 9 (5-15); BUN 5 mg/dL (7-18); BUN/Creat Ratio 7.2 RATIO (10-20); Calcium,Total 7.2 mg/dL (8.5-10.1); Chloride 80 mmol/L (98-107); Creatinine, Serum 0.69 mg/dL (0.55-1.02); EST Glomerular Filtration Rate 93 mL/min (>60); Est Glom Filt Rate - Afr Amer 112 mL/min (>60); Estimated Creatinine Clearance 86.42 ml/min; Glucose 212 mg/dL (74-106); Potassium 3.5 mmol/L (3.5-5.1); Sodium Level 118 mmol/L (136-145)
[2019-11-17 15:02] LABS: Urine Sodium 48 mmol/L (Not Establ.)
[2019-11-17 16:59] LABS: Osmolality, Urine 575 mOsm/KG
[2019-11-17 17:35] LABS: Anion Gap 7 (5-15); BUN 5 mg/dL (7-18); BUN/Creat Ratio 8.2 RATIO (10-20); Calcium,Total 7.2 mg/dL (8.5-10.1); Chloride 83 mmol/L (98-107); Creatinine, Serum 0.61 mg/dL (0.55-1.02); EST Glomerular Filtration Rate 107 mL/min (>60); Est Glom Filt Rate - Afr Amer 130 mL/min (>60); Estimated Creatinine Clearance 97.76 ml/min; Glucose 203 mg/dL (74-106); Potassium 4.2 mmol/L (3.5-5.1); Sodium Level 117 mmol/L (136-145)
[2019-11-17 17:46] LABS: Phosphorus 2.3 mg/dL (2.5-4.9)
[2019-11-17] MEDS: Amiodarone 360 MG in Dextrose 5% Viaflo Bag 192.8 ML 16.7 MG CONT INF (17:46)
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
[2019-11-17 19:06] LABS: Anion Gap 8 (5-15); BUN 5 mg/dL (7-18); Chloride 84 mmol/L (98-107); Creatinine, Serum 0.71 mg/dL (0.55-1.02); EST Glomerular Filtration Rate 90 mL/min (>60); Est Glom Filt Rate - Afr Amer 108 mL/min (>60); Estimated Creatinine Clearance 83.99 ml/min; Glucose 224 mg/dL (74-106); Potassium 3.8 mmol/L (3.5-5.1); Sodium Level 120 mmol/L (136-145)
[2019-11-17 21:19] LABS: Anion Gap 6 (5-15); BUN 6 mg/dL (7-18); BUN/Creat Ratio 8.4 RATIO (10-20); Calcium,Total 7.5 mg/dL (8.5-10.1); Chloride 85 mmol/L (98-107); Creatinine, Serum 0.71 mg/dL (0.55-1.02); EST Glomerular Filtration Rate 90 mL/min (>60); Est Glom Filt Rate - Afr Amer 108 mL/min (>60); Estimated Creatinine Clearance 83.99 ml/min; Glucose 183 mg/dL (74-106); Sodium Level 120 mmol/L (136-145)
[2019-11-17 23:45] LABS: Anion Gap 7 (5-15); BUN 6 mg/dL (7-18); BUN/Creat Ratio 8.6 RATIO (10-20); Calcium,Total 7.4 mg/dL (8.5-10.1); Chloride 86 mmol/L (98-107); Creatinine, Serum 0.69 mg/dL (0.55-1.02); EST Glomerular Filtration Rate 92 mL/min (>60); Est Glom Filt Rate - Afr Amer 112 mL/min (>60); Estimated Creatinine Clearance 86.42 ml/min; Glucose 166 mg/dL (74-106); Potassium 4.2 mmol/L (3.5-5.1); Sodium Level 120 mmol/L (136-145)
[2019-11-17 23:46] LABS: Magnesium 2.4 mg/dL (1.6-2.6)
[2019-11-18] VITALS (23 sets, daily range): BP systolic 98–162; BP diastolic 55–101; PULSE 84–101; RESP 13–18; TEMP 36.4–37.6; O2SAT 94–100
[2019-11-18] MEDS: 0.9% Normal Saline 1,000 ML 150 ML IV ×4 (00:26→21:19)
[2019-11-18] MEDS: Sodium Chloride 0.65% 1 SPRAY SPRAY.BTL 4 SPRAY NASAL ×6 (02:04→21:23)
[2019-11-18] MEDS: Phenobarbital 32.4 MG Tablet 64.8 MG PO ×6 (02:04→21:24)
[2019-11-18 02:07] LABS: Phosphorus 1.5 mg/dL (2.5-4.9)
[2019-11-18] MEDS: Amiodarone 360 MG in Dextrose 5% Viaflo Bag 192.8 ML 16.7 MG CONT INF (04:33)
[2019-11-18 04:55] LABS: Absolute Lymphocyte Count 0.83 X10^3/uL (0.83-4.51); Absolute Neutrophil Count 14.2 X10^3/uL (2.0-7.7); Basophil# 0.02 X10^3/uL; Basophil% 0.1 % (0-1); Hematocrit 35.1 % (37-47); Hemoglobin 11.6 g/dL (12.0-15.0); Lymphocyte # 0.83 X10^3/ul (4.0); Lymphocyte % 5.2 % (19-41); Mean Corpuscular Volume 81.8 fL (81-99); Mean Platelet Vol. 9.3 fl (6.2-12.0); Monocyte# 0.67 X10^3/uL; Monocyte% 4.2 % (0-10); NRBC Flagged by Analyzer 0 % (0-5); Neutrophil % 89.9 % (47-70); Platelet Count 156 K/mm3 (150-450); RBC Distribution Width CV 14.9 % (11.6-14.6); RBC Distribution Width SD 43.8 fl (35.1-43.9); Red Blood Count 4.29 M/mm3 (4.2-5.4); White Blood Count 15.8 K/mm3 (4.4-11.0)
[2019-11-18 05:14] LABS: ALB/GLOB Ratio 0.7 RATIO (0.9-2.4); AST(SGOT) 80 U/L (15-37); Alanine Aminotransfer ALT/SGPT 48 U/L (13-56); Albumin, Serum 2.3 g/dL (3.2-5.0); Alkaline Phosphatase 85 U/L (45-117); Anion Gap 8 (5-15); BUN 5 mg/dL (7-18); BUN/Creat Ratio 8.9 RATIO (10-20); CPK Total, Creatine Kinase 702 U/L (26-192); Calcium,Total 7.3 mg/dL (8.5-10.1); Chloride 85 mmol/L (98-107); Creatinine, Serum 0.56 mg/dL (0.55-1.02); EST Glomerular Filtration Rate 117 mL/min (>60); Est Glom Filt Rate - Afr Amer 142 mL/min (>60); Estimated Creatinine Clearance 106.49 ml/min; Globulin 3.4 g/dL (2.2-4.2); Glucose 129 mg/dL (74-106); Magnesium 2.4 mg/dL (1.6-2.6); Phosphorus 2.2 mg/dL (2.5-4.9); Potassium 3.6 mmol/L (3.5-5.1); Protein, Total 5.7 g/dL (6.4-8.2); Sodium Level 122 mmol/L (136-145)
[2019-11-18] MEDS: Nystatin Powder 15gm Bottle 1 APPLIC TOPICAL ×3 (05:45→21:23)
--- NOTE | 2019-11-18 05:55 | RAD_ITS ---
STUDY: X-RAY CHEST REASON FOR EXAM: Female, 59 years old. DYSPNEA TECHNIQUE: Frontal view COMPARISON: 11/17/2019 FINDINGS: Lungs are expanded. There are faint bilateral basilar infiltrates. There is no demonstrated pleural abnormality. Normal size heart. Normal mediastinum and vicki. Normal visualized pulmonary arteries. Normal visualized aortic arch and descending thoracic aorta. Normal visualized thoracic spine. Normal visualized ribs, clavicles, and shoulders. There is no demonstrated abnormality of the visualized soft tissue structures of the upper abdomen. RAD/Chest 1 View (Portable) IMPRESSION: Lungs are expanded. There are faint bilateral basilar infiltrates. There is no demonstrated pleural abnormality. Normal size heart. Electronically Signed: Tyson Berry MD at 5:24 EDT , Service support ,
--- NOTE | 2019-11-18 06:14 | PN_ITS ---
Subjective: The patient was seen and examined at the bedside this morning. Events from the last 24 hours have been reviewed. The patient is currently afebrile, hemodynamically stable and maintaining appropriate oxygen saturations on 2 L/min via nasal cannula. The patient did convert to normal sinus rhythm yesterday. Sodium has improved to 122 this morning. Total CK has also improved. Phosphorus remains low at 2.2. Objective: The patient's most recent lab work, culture data and imaging studies have all been personally reviewed. Surface echocardiogram revealed normal LV size and function with an ejection fraction of 75%. Coronavirus PCR was negative. Respiratory viral panel was negative. Strep and urine Legionella antigens were negative. Blood and urine cultures are pending. General: Alert, Cooperative, No apparent distress HEENT: PERRLA, EOMI, Normocephalic Oral: Moist Mucosa Neck: Supple, No Nodes, Trachea Midline Lungs: No rhonchi, No wheeze, No rales, Diminished Cardiovascular: Regular rate, Regular Rhythm Abdomen: Bowel Sounds Present, Soft, Non Tender, Obese Extremities: No clubbing, No cyanosis, No edema Skin: - - No significant change from previous. Musculoskeletal: No Muscle Wasting Lymphatic: No Cervical, Supraclavicular, or Inguinal Adenopathy Neurological: Cranial nerves II-XII grossly intact, Neuro grossly intact Psych/Mental Status: Flat Affect Vital Signs Temp Pulse Resp BP Pulse Ox 99.7 F H 93 13 144/72 H 100 11/18/19 06:02 11/18/19 06:02 11/18/19 06:02 11/18/19 06:02 11/18/19 06:02 Oxygen Flow Rate (L/min) 2 Oxygen Delivery Method Nasal Cannula Weight: 274 lb 7.608 oz Body Mass Index (BMI) 40.2 Intake and Output for Last 24 Hours 11/16/19 11/17/19 11/18/19 23:59 23:59 23:59 Intake Total 7029.76 / 7071.46 2363.72 / 2363.72 Output Total 415 / 475 190 / 190 Balance 6614.76 / 6596.46 2173.72 / 2173.72 Labs (Last 48 Hours) 11/17/19 11/17/19 11/17/19 03:31 05:59 05:59 WBC 19.4 H RBC 5.09 Hgb 13.8 Hct 40.4 MCV 79.4 L MCH 27.1 MCHC 34.2 RDW Std Deviation 41.1 RDW Coeff of Cecil 14.4 Plt Count 196 MPV 9.1 Immature Gran % (Auto) 0.600 Neut % (Auto) 91.2 H Lymph % (Auto) 3.3 L Bennett % (Auto) 4.6 Eos % (Auto) 0.1 Baso % (Auto) 0.2 Absolute Neuts (auto) 17.7 H Absolute Lymphs (auto) 0.64 L Nucleated RBC % 0 PT INR APTT Sodium 114 L* Potassium 3.2 L Chloride 72 L* Carbon Dioxide 21.0 Anion Gap 21 H BUN 4 L Creatinine 0.80 Estim Creat Clear Calc 74.54 Est GFR (MDRD) Af Amer 95 Est GFR (MDRD) Non-Af 78 BUN/Creatinine Ratio 5.0 L Glucose 168 H Hemoglobin A1c Lactic Acid Calcium 8.3 L Phosphorus Magnesium Total Bilirubin 1.50 H AST 137 H ALT 65 H Alkaline Phosphatase 119 H Ammonia Total Creatine Kinase Troponin I 0.020 Total Protein 7.3 Albumin 3.2 Globulin 4.1 Albumin/Globulin Ratio 0.8 L Lipase 30 L TSH Free T4 Urine Color Urine Clarity Urine pH Ur Specific [place] Urine Protein Urine Glucose (UA) Urine Ketones Urine Occult Blood Urine Nitrite Urine Bilirubin Urine Urobilinogen Ur Leukocyte Esterase Urine RBC Urine WBC Ur Squamous Epith Cells Urine Bacteria Hyaline Casts Urine Mucus Urine Osmolality Ur Random Sodium Urine Creatinine Urine Opiates Screen Urine Methadone Screen Ur Barbiturates Screen Ur Phencyclidine Scrn Ur Amphetamines Screen U Methamphetamin-MDMA U Benzodiazepines Scrn Urine Cocaine Screen U Cannabinoids Screen Ur Drug Screen Comment Ethyl Alcohol COVID-19 (KAREN) Not Detected MRSA (PCR) 11/17/19 11/17/19 11/17/19 05:59 05:59 05:59 WBC RBC Hgb Hct MCV MCH MCHC RDW Std Deviation RDW Coeff of [place] Plt Count MPV Immature Gran % (Auto) Neut % (Auto) Lymph % (Auto) Bennett % (Auto) Eos % (Auto) Baso % (Auto) Absolute Neuts (auto) Absolute Lymphs (auto) Nucleated RBC % PT 13.0 INR 1.0 APTT 26.3 Sodium Potassium Chloride Carbon Dioxide Anion Gap BUN Creatinine Estim Creat Clear Calc Est GFR (MDRD) Af Amer Est GFR (MDRD) Non-Af BUN/Creatinine Ratio Glucose Hemoglobin A1c Lactic Acid Calcium Phosphorus Magnesium Total Bilirubin AST ALT Alkaline Phosphatase Ammonia Total Creatine Kinase 2115 H Troponin I Total Protein Albumin Globulin Albumin/Globulin Ratio Lipase TSH Free T4 Urine Color Urine Clarity Urine pH Ur Specific [place] Urine Protein Urine Glucose (UA) Urine Ketones Urine Occult Blood Urine Nitrite Urine Bilirubin Urine Urobilinogen Ur Leukocyte Esterase Urine RBC Urine WBC Ur Squamous Epith Cells Urine Bacteria Hyaline Casts Urine Mucus Urine Osmolality Ur Random Sodium Urine Creatinine Urine Opiates Screen Urine Methadone Screen Ur Barbiturates Screen Ur Phencyclidine Scrn Ur Amphetamines Screen U Methamphetamin-MDMA U Benzodiazepines Scrn Urine Cocaine Screen U Cannabinoids Screen Ur Drug Screen Comment Ethyl Alcohol 60.0 COVID-19 (KAREN) MRSA (PCR) 11/17/19 11/17/19 11/17/19 05:59 05:59 06:50 WBC RBC Hgb Hct MCV MCH MCHC RDW Std Deviation RDW Coeff of [place] Plt Count MPV Immature Gran % (Auto) Neut % (Auto) Lymph % (Auto) Bennett % (Auto) Eos % (Auto) Baso % (Auto) Absolute Neuts (auto) Absolute Lymphs (auto) Nucleated RBC % PT INR APTT Sodium 118 L* Potassium 3.0 L Chloride 78 L Carbon Dioxide 28.0 Anion Gap 12 BUN 4 L Creatinine 0.56 Estim Creat Clear Calc 106.49 Est GFR (MDRD) Af Amer 144 Est GFR (MDRD) Non-Af 119 BUN/Creatinine Ratio 7.2 L Glucose 202 H Hemoglobin A1c 6.0 H Lactic Acid 8.3 H* Calcium 7.1 L Phosphorus 1.6 L Magnesium 1.5 L Total Bilirubin AST ALT Alkaline Phosphatase Ammonia Total Creatine Kinase Troponin I Total Protein Albumin Globulin Albumin/Globulin Ratio Lipase TSH 1.21 Free T4 0.58 L Urine Color Urine Clarity Urine pH Ur Specific [place] Urine Protein Urine Glucose (UA) Urine Ketones Urine Occult Blood Urine Nitrite Urine Bilirubin Urine Urobilinogen Ur Leukocyte Esterase Urine RBC Urine WBC Ur Squamous Epith Cells Urine Bacteria Hyaline Casts Urine Mucus Urine Osmolality Ur Random Sodium Urine Creatinine Urine Opiates Screen Urine Methadone Screen Ur Barbiturates Screen Ur Phencyclidine Scrn Ur Amphetamines Screen U Methamphetamin-MDMA U Benzodiazepines Scrn Urine Cocaine Screen U Cannabinoids Screen Ur Drug Screen Comment Ethyl Alcohol COVID-19 (KAREN) MRSA (PCR) 11/17/19 11/17/19 11/17/19 07:00 07:00 07:00 WBC RBC Hgb Hct MCV MCH MCHC RDW Std Deviation RDW Coeff of [place] Plt Count MPV Immature Gran % (Auto) Neut % (Auto) Lymph % (Auto) Bennett % (Auto) Eos % (Auto) Baso % (Auto) Absolute Neuts (auto) Absolute Lymphs (auto) Nucleated RBC % PT INR APTT Sodium Potassium Chloride Carbon Dioxide Anion Gap BUN Creatinine Estim Creat Clear Calc Est GFR (MDRD) Af Amer Est GFR (MDRD) Non-Af BUN/Creatinine Ratio Glucose Hemoglobin A1c Lactic Acid Calcium Phosphorus Magnesium Total Bilirubin AST ALT Alkaline Phosphatase Ammonia Total Creatine Kinase Troponin I Total Protein Albumin Globulin Albumin/Globulin Ratio Lipase TSH Free T4 Urine Color Yellow Urine Clarity Sl. Cloudy Urine pH 6.0 Ur Specific [place] 1.025 Urine Protein 30 H Urine Glucose (UA) Normal Urine Ketones 150 H Urine Occult Blood 250 H Urine Nitrite Negative Urine Bilirubin Negative Urine Urobilinogen Normal Ur Leukocyte Esterase 100 H Urine RBC 0-5 SEEN Urine WBC 10-25 SEEN Ur Squamous Epith Cells 0 SEEN Urine Bacteria 4+ Hyaline Casts 5-10 SEEN Urine Mucus 0 SEEN Urine Osmolality 575 Ur Random Sodium Urine Creatinine Urine Opiates Screen NEGATIVE Urine Methadone Screen NEGATIVE Ur Barbiturates Screen NEGATIVE Ur Phencyclidine Scrn NEGATIVE Ur Amphetamines Screen NEGATIVE U Methamphetamin-MDMA NEGATIVE U Benzodiazepines Scrn NEGATIVE Urine Cocaine Screen NEGATIVE U Cannabinoids Screen NEGATIVE Ur Drug Screen Comment Ethyl Alcohol COVID-19 (KAREN) MRSA (PCR) 11/17/19 11/17/19 11/17/19 07:00 07:00 09:55 WBC RBC Hgb Hct MCV MCH MCHC RDW Std Deviation RDW Coeff of [place] Plt Count MPV Immature Gran % (Auto) Neut % (Auto) Lymph % (Auto) Bennett % (Auto) Eos % (Auto) Baso % (Auto) Absolute Neuts (auto) Absolute Lymphs (auto) Nucleated RBC % PT INR APTT Sodium Potassium Chloride Carbon Dioxide Anion Gap BUN Creatinine Estim Creat Clear Calc Est GFR (MDRD) Af Amer Est GFR (MDRD) Non-Af BUN/Creatinine Ratio Glucose Hemoglobin A1c Lactic Acid Calcium Phosphorus Magnesium Total Bilirubin AST ALT Alkaline Phosphatase Ammonia < 10.0 L Total Creatine Kinase Troponin I Total Protein Albumin Globulin Albumin/Globulin Ratio Lipase TSH Free T4 Urine Color Urine Clarity Urine pH Ur Specific [place] Urine Protein Urine Glucose (UA) Urine Ketones Urine Occult Blood Urine Nitrite Urine Bilirubin Urine Urobilinogen Ur Leukocyte Esterase Urine RBC Urine WBC Ur Squamous Epith Cells Urine Bacteria Hyaline Casts Urine Mucus Urine Osmolality Ur Random Sodium 48 Urine Creatinine 94.00 Urine Opiates Screen Urine Methadone Screen Ur Barbiturates Screen Ur Phencyclidine Scrn Ur Amphetamines Screen U Methamphetamin-MDMA U Benzodiazepines Scrn Urine Cocaine Screen U Cannabinoids Screen Ur Drug Screen Comment Ethyl Alcohol COVID-19 (KAREN) MRSA (PCR) 11/17/19 11/17/19 11/17/19 09:55 11:45 11:45 WBC RBC Hgb Hct MCV MCH MCHC RDW Std Deviation RDW Coeff of [place] Plt Count MPV Immature Gran % (Auto) Neut % (Auto) Lymph % (Auto) Bennett % (Auto) Eos % (Auto) Baso % (Auto) Absolute Neuts (auto) Absolute Lymphs (auto) Nucleated RBC % PT INR APTT Sodium 116 L* Potassium 3.5 Chloride 77 L Carbon Dioxide 29.0 Anion Gap 10 BUN 4 L Creatinine 0.66 Estim Creat Clear Calc 90.35 Est GFR (MDRD) Af Amer 118 Est GFR (MDRD) Non-Af 98 BUN/Creatinine Ratio 6.1 L Glucose 275 H Hemoglobin A1c Lactic Acid 1.7 Calcium 7.3 L Phosphorus Magnesium Total Bilirubin AST ALT Alkaline Phosphatase Ammonia Total Creatine Kinase Troponin I Total Protein Albumin Globulin Albumin/Globulin Ratio Lipase TSH Free T4 Urine Color Urine Clarity Urine pH Ur Specific [place] Urine Protein Urine Glucose (UA) Urine Ketones Urine Occult Blood Urine Nitrite Urine Bilirubin Urine Urobilinogen Ur Leukocyte Esterase Urine RBC Urine WBC Ur Squamous Epith Cells Urine Bacteria Hyaline Casts Urine Mucus Urine Osmolality Ur Random Sodium Urine Creatinine Urine Opiates Screen Urine Methadone Screen Ur Barbiturates Screen Ur Phencyclidine Scrn Ur Amphetamines Screen U Methamphetamin-MDMA U Benzodiazepines Scrn Urine Cocaine Screen U Cannabinoids Screen Ur Drug Screen Comment Ethyl Alcohol COVID-19 (KAREN) MRSA (PCR) Negative 11/17/19 11/17/19 11/17/19 14:00 16:35 16:35 WBC RBC Hgb Hct MCV MCH MCHC RDW Std Deviation RDW Coeff of [place] Plt Count MPV Immature Gran % (Auto) Neut % (Auto) Lymph % (Auto) Bennett % (Auto) Eos % (Auto) Baso % (Auto) Absolute Neuts (auto) Absolute Lymphs (auto) Nucleated RBC % PT INR APTT Sodium 118 L* 117 L* Potassium 3.5 4.2 Chloride 80 L 83 L Carbon Dioxide 29.0 27.0 Anion Gap 9 7 BUN 5 L 5 L Creatinine 0.69 0.61 Estim Creat Clear Calc 86.42 97.76 Est GFR (MDRD) Af Amer 112 130 Est GFR (MDRD) Non-Af 93 107 BUN/Creatinine Ratio 7.2 L 8.2 L Glucose 212 H 203 H Hemoglobin A1c Lactic Acid Calcium 7.2 L 7.2 L Phosphorus 2.3 L Magnesium 2.0 Total Bilirubin AST ALT Alkaline Phosphatase Ammonia Total Creatine Kinase Troponin I Total Protein Albumin Globulin Albumin/Globulin Ratio Lipase TSH Free T4 Urine Color Urine Clarity Urine pH Ur Specific [place] Urine Protein Urine Glucose (UA) Urine Ketones Urine Occult Blood Urine Nitrite Urine Bilirubin Urine Urobilinogen Ur Leukocyte Esterase Urine RBC Urine WBC Ur Squamous Epith Cells Urine Bacteria Hyaline Casts Urine Mucus Urine Osmolality Ur Random Sodium Urine Creatinine Urine Opiates Screen Urine Methadone Screen Ur Barbiturates Screen Ur Phencyclidine Scrn Ur Amphetamines Screen U Methamphetamin-MDMA U Benzodiazepines Scrn Urine Cocaine Screen U Cannabinoids Screen Ur Drug Screen Comment Ethyl Alcohol COVID-19 (KAREN) MRSA (PCR) 11/17/19 11/17/19 11/17/19 18:35 20:40 23:15 WBC RBC Hgb Hct MCV MCH MCHC RDW Std Deviation RDW Coeff of [place] Plt Count MPV Immature Gran % (Auto) Neut % (Auto) Lymph % (Auto) Bennett % (Auto) Eos % (Auto) Baso % (Auto) Absolute Neuts (auto) Absolute Lymphs (auto) Nucleated RBC % PT INR APTT Sodium 120 L 120 L Cancelled Potassium 3.8 4.0 Cancelled Chloride 84 L 85 L Cancelled Carbon Dioxide 28.0 29.0 Cancelled Anion Gap 8 6 Cancelled BUN 5 L 6 L Cancelled Creatinine 0.71 0.71 Cancelled Estim Creat Clear Calc 83.99 83.99 Cancelled Est GFR (MDRD) Af Amer 108 108 Cancelled Est GFR (MDRD) Non-Af 90 90 Cancelled BUN/Creatinine Ratio 7.0 L 8.4 L Cancelled Glucose 224 H 183 H Cancelled Hemoglobin A1c Lactic Acid Calcium 7.0 L 7.5 L Cancelled Phosphorus Magnesium Total Bilirubin AST ALT Alkaline Phosphatase Ammonia Total Creatine Kinase Troponin I Total Protein Albumin Globulin Albumin/Globulin Ratio Lipase TSH Free T4 Urine Color Urine Clarity Urine pH Ur Specific [place] Urine Protein Urine Glucose (UA) Urine Ketones Urine Occult Blood Urine Nitrite Urine Bilirubin Urine Urobilinogen Ur Leukocyte Esterase Urine RBC Urine WBC Ur Squamous Epith Cells Urine Bacteria Hyaline Casts Urine Mucus Urine Osmolality Ur Random Sodium Urine Creatinine Urine Opiates Screen Urine Methadone Screen Ur Barbiturates Screen Ur Phencyclidine Scrn Ur Amphetamines Screen U Methamphetamin-MDMA U Benzodiazepines Scrn Urine Cocaine Screen U Cannabinoids Screen Ur Drug Screen Comment Ethyl Alcohol COVID-19 (KAREN) MRSA (PCR) 11/17/19 11/17/19 11/18/19 23:15 23:15 01:40 WBC RBC Hgb Hct MCV MCH MCHC RDW Std Deviation RDW Coeff of [place] Plt Count MPV Immature Gran % (Auto) Neut % (Auto) Lymph % (Auto) Bennett % (Auto) Eos % (Auto) Baso % (Auto) Absolute Neuts (auto) Absolute Lymphs (auto) Nucleated RBC % PT INR APTT Sodium 120 L Potassium 4.2 Chloride 86 L Carbon Dioxide 27.0 Anion Gap 7 BUN 6 L Creatinine 0.69 Estim Creat Clear Calc 86.42 Est GFR (MDRD) Af Amer 112 Est GFR (MDRD) Non-Af 92 BUN/Creatinine Ratio 8.6 L Glucose 166 H Hemoglobin A1c Lactic Acid Calcium 7.4 L Phosphorus 1.5 L Magnesium 2.4 Total Bilirubin AST ALT Alkaline Phosphatase Ammonia Total Creatine Kinase Troponin I Total Protein Albumin Globulin Albumin/Globulin Ratio Lipase TSH Free T4 Urine Color Urine Clarity Urine pH Ur Specific [place] Urine Protein Urine Glucose (UA) Urine Ketones Urine Occult Blood Urine Nitrite Urine Bilirubin Urine Urobilinogen Ur Leukocyte Esterase Urine RBC Urine WBC Ur Squamous Epith Cells Urine Bacteria Hyaline Casts Urine Mucus Urine Osmolality Ur Random Sodium Urine Creatinine Urine Opiates Screen Urine Methadone Screen Ur Barbiturates Screen Ur Phencyclidine Scrn Ur Amphetamines Screen U Methamphetamin-MDMA U Benzodiazepines Scrn Urine Cocaine Screen U Cannabinoids Screen Ur Drug Screen Comment Ethyl Alcohol COVID-19 (KAREN) MRSA (PCR) 11/18/19 11/18/19 04:45 04:45 WBC 15.8 H RBC 4.29 Hgb 11.6 L Hct 35.1 L MCV 81.8 MCH 27.0 MCHC 33.0 RDW Std Deviation 43.8 RDW Coeff of Cecil 14.9 H Plt Count 156 MPV 9.3 Immature Gran % (Auto) 0.600 Neut % (Auto) 89.9 H Lymph % (Auto) 5.2 L Bennett % (Auto) 4.2 Eos % (Auto) 0.0 Baso % (Auto) 0.1 Absolute Neuts (auto) 14.2 H Absolute Lymphs (auto) 0.83 Nucleated RBC % 0 PT INR APTT Sodium 122 L Potassium 3.6 Chloride 85 L Carbon Dioxide 29.0 Anion Gap 8 BUN 5 L Creatinine 0.56 Estim Creat Clear Calc 106.49 Est GFR (MDRD) Af Amer 142 Est GFR (MDRD) Non-Af 117 BUN/Creatinine Ratio 8.9 L Glucose 129 H Hemoglobin A1c Lactic Acid Calcium 7.3 L Phosphorus 2.2 L Magnesium 2.4 Total Bilirubin 0.90 AST 80 H ALT 48 Alkaline Phosphatase 85 Ammonia Total Creatine Kinase 702 H Troponin I Total Protein 5.7 L Albumin 2.3 L Globulin 3.4 Albumin/Globulin Ratio 0.7 L Lipase TSH Free T4 Urine Color Urine Clarity Urine pH Ur Specific [place] Urine Protein Urine Glucose (UA) Urine Ketones Urine Occult Blood Urine Nitrite Urine Bilirubin Urine Urobilinogen Ur Leukocyte Esterase Urine RBC Urine WBC Ur Squamous Epith Cells Urine Bacteria Hyaline Casts Urine Mucus Urine Osmolality Ur Random Sodium Urine Creatinine Urine Opiates Screen Urine Methadone Screen Ur Barbiturates Screen Ur Phencyclidine Scrn Ur Amphetamines Screen U Methamphetamin-MDMA U Benzodiazepines Scrn Urine Cocaine Screen U Cannabinoids Screen Ur Drug Screen Comment Ethyl Alcohol COVID-19 (KAREN) MRSA (PCR) Microbiology 11/17/19 07:00 Urine, Clean Catch Streptococcus pneumoniae Antigen (M - Final 11/17/19 07:00 Urine, Clean Catch Legionella Antigen - Final 11/17/19 09:45 Mucosa - Nose Respiratory Panel (PCR) - Final Clinical Impression(s) from Imaging Studies Brain CT 11/17/19 05:48 IMPRESSION: There is frontal scalp swelling. There are old craniotomy defects. There is NO skull fracture. is encephalomalacia in the LEFT frontal lobe suggesting old injury. There is no intracranial hemorrhage. There are no findings of an acute ischemic infarction. Electronically Signed: Tyson Berry MD at 7:00 EDT , Service support , Chest X-Ray 11/17/19 05:48 IMPRESSION: Faint RIGHT lower lobe infiltrate.. Electronically Signed: Tyson Berry MD at 6:57 EDT , Service support , Cervical Spine CT 11/17/19 05:50 IMPRESSION: Multilevel degenerative changes, as described above. There are NO fractures or malalignments. Electronically Signed: Tyson Berry MD at 7:05 EDT , Service support , Facial/Sinus 11/17/19 05:50 IMPRESSION: There are fractures of the nasal bone. Electronically Signed: Tyson Berry MD at 7:07 EDT , Service support , Chest X-Ray 11/18/19 05:55 IMPRESSION: Lungs are expanded. There are faint bilateral basilar infiltrates. There is no demonstrated pleural abnormality. Normal size heart. Electronically Signed: Tyson Berry MD at 5:24 EDT , Service support , Medical Necessity - Tobacco Use Smoking Status: Never smoker Tobacco Use: Non-smoker Assessment/Plan All Active Problems (Last Updated 10/20/19 @ 11:12 by Dayana Gibson) Septic shock (Acute) Aspiration pneumonia (Acute) UTI (urinary tract infection) (Acute) Atrial fibrillation with RVR (Acute) Nasal bone fractures (Acute) Rhabdomyolysis (Acute) Alcohol withdrawal seizure (Acute) Hyponatremia (Acute) Traumatic rhabdomyolysis (Acute) Anemia (Acute) Acute kidney injury (Resolved) Multiple rib fractures (Acute) Pneumonia (Resolved) Pulmonary contusion (Acute) Acute alcoholic hepatitis (Resolved) Alcohol intoxication (Resolved) Alcohol withdrawal (Resolved) History of subdural hematoma (Resolved) Hyponatremia (Resolved) Non-union of fracture (Resolved) RECOMMENDATIONS: 1. Continue empiric antimicrobials. 2. Continue gentle IV fluid hydration and aggressive electrolyte repletion. 3. Continue CIWA protocol along with thiamine and folate repletion. 4. Rate/rhythm control strategy per cardiology recommendations. IMPRESSIONS: 1. Septic shock Improved. Potential infectious etiologies include possible right lower lobe pneumonia versus urinary tract source of infection. Initial lactate was elevated to greater than 8. The patient has been adequately volume resuscitated. She remains hemodynamically stable. Plan to continue empiric antimicrobials, pending infectious work-up. 2. Encephalopathy Likely secondary to recent alcohol ingestion. Mentation has improved at this time. We will continue to monitor clinically. Avoid sedating medications. 3. Hyponatremia/hypochloremia/hypophosphatemia Likely secondary to beer for swetha and intravascular volume depletion. The patient is currently being volume resuscitated, with slow improvement in sodium level noted. Plan to continue gentle IV fluid hydration. Continue aggressive electrolyte repletion. 4. New onset atrial fibrillation with RVR/history of PFO Continue rate/rhythm control strategy per cardiology recommendations. The patient does have a history of a PFO, but her history of recurrent falls would likely preclude her from consideration for systemic anticoagulation. 5. Longstanding history of alcoholism Continue CIWA protocol and monitor for alcohol withdrawal symptoms. Continue thiamine and folate. 6. Depression/hypothyroidism/obesity Complicates care, management, recovery and prognosis. Continue home medications as indicated. Physical therapy to work with the patient. This note was generated with makeena dictation software. It may contain incorrect words, spelling, and punctuation that were not noted in checking the note before signing. Inpatient E&M: [id number] [facility] L3
--- NOTE | 2019-11-18 07:12 | PCM.PN.HOSP ---
Patient Problems: Active and Suspected Problems (Last Updated 10/20/19 @ 11:12 by Dayana Gibson) Septic shock (Acute) Aspiration pneumonia (Acute) UTI (urinary tract infection) (Acute) Atrial fibrillation with RVR (Acute) Nasal bone fractures (Acute) Rhabdomyolysis (Acute) Alcohol withdrawal seizure (Acute) Subjective: Patient overnight with fortunate conversion to sinus rhythm following initiation of IV Cardizem and IV amiodarone approximately converting near noon on 11/17/2019 with ongoing attempts to transition off IV Cardizem and transition to amiodarone oral with plan continued close liver function following given patient's alcohol abuse history. Patient evaluated also by nephrology who at this time recommends continued hydration especially given improvements and reviewed prior history of possible SIADH but noted that this is not certain and feel more likely beer potomania and sepsis syndrome presentation. Patient notes feeling improved with less and cough and no dyspnea at this time. She maintains interest in alcohol withdrawal treatment. Patient denies fevers, chills, nausea, emesis, abdominal pain, chest pain or dyspnea. Objective: Physical Examination: General: awake, alert, oriented x 3 and cooperative, seated upright in the ICU bed, improved appearance, edema resolving to face. Skin: normal color, turgor, no icterus, cyanosis except very staged ecchymoses to the face and to the extremities likely secondary to serial falls, more recently noted small laceration to the front forehead with lessening of the swelling, small laceration across the bridge of the nose, nondisplaced appearing with lessened swelling, laceration to the left heel as well as laceration to the right lateral great toe dressed. HEENT: AT/NC, EOMI, PERRLA, improved MMM. Lungs: Improved effort, less diminished breath sounds bilaterally, still R>L base, no rales, ronchi or wheezing. Heart: Regular rate and rhythm; no gallop, rub audible. Abdomen: soft, morbidly obese, NTTP, ND, normal BS. Extremities: no cyanosis, clubbing, or edema, see skin. Neurological: patient awake, alert, oriented as noted; cognitive function baseline intact; pupils equally reactive to light and accomodation; cranial nerves II-XII grossly normal, moving all 4 extremities, no focal deficits, strength improved, moderately globally decreased secondary to acute presentation. Psychiatric: affect appears improved, less fatigued, no acute evidence of depressive or anxiety feelings. Vitals/I&O's: Vital Signs Temp Pulse Resp BP Pulse Ox 99.7 F H 93 13 144/72 H 100 11/18/19 06:02 11/18/19 06:02 11/18/19 06:02 11/18/19 06:02 11/18/19 06:02 Oxygen Flow Rate (L/min) 2 Oxygen Delivery Method Nasal Cannula Weight: 274 lb 7.608 oz Body Mass Index (BMI) 40.2 Intake and Output for Last 24 Hours 11/16/19 11/17/19 11/18/19 23:59 23:59 23:59 Intake Total 7029.76 / 7071.46 2363.72 / 2363.72 Output Total 415 / 475 190 / 190 Balance 6614.76 / 6596.46 2173.72 / 2173.72 Microbiology Past 72 Hours 11/17/19 07:00 Urine, Clean Catch Streptococcus pneumoniae Antigen (M - Final 11/17/19 07:00 Urine, Clean Catch Legionella Antigen - Final 11/17/19 09:45 Mucosa - Nose Respiratory Panel (PCR) - Final Laboratory Results 11/17/19 03:31: COVID-19 (KAREN) Not Detected 11/17/19 05:59: Total Creatine Kinase 2115 H 11/17/19 05:59: Sodium 118 L*, Potassium 3.0 L, Chloride 78 L, Carbon Dioxide 28.0, Anion Gap 12, BUN 4 L, Creatinine 0.56, Estim Creat Clear Calc 106.49, Est GFR (MDRD) Af Amer 144, Est GFR (MDRD) Non-Af 119, BUN/Creatinine Ratio 7.2 L, Glucose 202 H, Calcium 7.1 L, Phosphorus 1.6 L, Magnesium 1.5 L, TSH 1.21, Free T4 0.58 L 11/17/19 05:59: Hemoglobin A1c 6.0 H 11/17/19 06:50: Lactic Acid 8.3 H* 11/17/19 07:00: Urine Color Yellow, Urine Clarity Sl. Cloudy, Urine pH 6.0, Ur Specific [place] 1.025, Urine Protein 30 H, Urine Glucose (UA) Normal, Urine Ketones 150 H, Urine Occult Blood 250 H, Urine Nitrite Negative, Urine Bilirubin Negative, Urine Urobilinogen Normal, Ur Leukocyte Esterase 100 H, Urine RBC 0-5 SEEN, Urine WBC 10-25 SEEN, Ur Squamous Epith Cells 0 SEEN, Urine Bacteria 4+, Hyaline Casts 5-10 SEEN, Urine Mucus 0 SEEN 11/17/19 07:00: Urine Opiates Screen NEGATIVE, Urine Methadone Screen NEGATIVE, Ur Barbiturates Screen NEGATIVE, Ur Phencyclidine Scrn NEGATIVE, Ur Amphetamines Screen NEGATIVE, U Methamphetamin-MDMA NEGATIVE, U Benzodiazepines Scrn NEGATIVE, Urine Cocaine Screen NEGATIVE, U Cannabinoids Screen NEGATIVE 11/17/19 07:00: Urine Osmolality 575 11/17/19 07:00: Urine Creatinine 94.00 11/17/19 07:00: Ur Random Sodium 48 11/17/19 09:55: Ammonia < 10.0 L 11/17/19 09:55: MRSA (PCR) Negative 11/17/19 11:45: Sodium 116 L*, Potassium 3.5, Chloride 77 L, Carbon Dioxide 29.0, Anion Gap 10, BUN 4 L, Creatinine 0.66, Estim Creat Clear Calc 90.35, Est GFR (MDRD) Af Amer 118, Est GFR (MDRD) Non-Af 98, BUN/Creatinine Ratio 6.1 L, Glucose 275 H, Calcium 7.3 L 11/17/19 11:45: Lactic Acid 1.7 11/17/19 14:00: Sodium 118 L*, Potassium 3.5, Chloride 80 L, Carbon Dioxide 29.0, Anion Gap 9, BUN 5 L, Creatinine 0.69, Estim Creat Clear Calc 86.42, Est GFR (MDRD) Af Amer 112, Est GFR (MDRD) Non-Af 93, BUN/Creatinine Ratio 7.2 L, Glucose 212 H, Calcium 7.2 L 11/17/19 16:35: Sodium 117 L*, Potassium 4.2, Chloride 83 L, Carbon Dioxide 27.0, Anion Gap 7, BUN 5 L, Creatinine 0.61, Estim Creat Clear Calc 97.76, Est GFR (MDRD) Af Amer 130, Est GFR (MDRD) Non-Af 107, BUN/Creatinine Ratio 8.2 L, Glucose 203 H, Calcium 7.2 L 11/17/19 16:35: Phosphorus 2.3 L, Magnesium 2.0 11/17/19 18:35: Sodium 120 L, Potassium 3.8, Chloride 84 L, Carbon Dioxide 28.0, Anion Gap 8, BUN 5 L, Creatinine 0.71, Estim Creat Clear Calc 83.99, Est GFR (MDRD) Af Amer 108, Est GFR (MDRD) Non-Af 90, BUN/Creatinine Ratio 7.0 L, Glucose 224 H, Calcium 7.0 L 11/17/19 20:40: Sodium 120 L, Potassium 4.0, Chloride 85 L, Carbon Dioxide 29.0, Anion Gap 6, BUN 6 L, Creatinine 0.71, Estim Creat Clear Calc 83.99, Est GFR (MDRD) Af Amer 108, Est GFR (MDRD) Non-Af 90, BUN/Creatinine Ratio 8.4 L, Glucose 183 H, Calcium 7.5 L 11/17/19 23:15: Sodium Cancelled, Potassium Cancelled, Chloride Cancelled, Carbon Dioxide Cancelled, Anion Gap Cancelled, BUN Cancelled, Creatinine Cancelled, Estim Creat Clear Calc Cancelled, Est GFR (MDRD) Af Amer Cancelled, Est GFR (MDRD) Non-Af Cancelled, BUN/Creatinine Ratio Cancelled, Glucose Cancelled, Calcium Cancelled 11/17/19 23:15: Sodium 120 L, Potassium 4.2, Chloride 86 L, Carbon Dioxide 27.0, Anion Gap 7, BUN 6 L, Creatinine 0.69, Estim Creat Clear Calc 86.42, Est GFR (MDRD) Af Amer 112, Est GFR (MDRD) Non-Af 92, BUN/Creatinine Ratio 8.6 L, Glucose 166 H, Calcium 7.4 L 11/17/19 23:15: Magnesium 2.4 11/18/19 01:40: Phosphorus 1.5 L 11/18/19 04:45: WBC 15.8 H, RBC 4.29, Hgb 11.6 L, Hct 35.1 L, MCV 81.8, MCH 27.0, MCHC 33.0, RDW Std Deviation 43.8, RDW Coeff of Cecil 14.9 H, Plt Count 156, MPV 9.3, Immature Gran % (Auto) 0.600, Neut % (Auto) 89.9 H, Lymph % (Auto) 5.2 L, [place] % (Auto) 4.2, Eos % (Auto) 0.0, Baso % (Auto) 0.1, Absolute Neuts (auto) 14.2 H, Absolute Lymphs (auto) 0.83, Nucleated RBC % 0 11/18/19 04:45: Sodium 122 L, Potassium 3.6, Chloride 85 L, Carbon Dioxide 29.0, Anion Gap 8, BUN 5 L, Creatinine 0.56, Estim Creat Clear Calc 106.49, Est GFR (MDRD) Af Amer 142, Est GFR (MDRD) Non-Af 117, BUN/Creatinine Ratio 8.9 L, Glucose 129 H, Calcium 7.3 L, Phosphorus 2.2 L, Magnesium 2.4, Total Bilirubin 0.90, AST 80 H, ALT 48, Alkaline Phosphatase 85, Total Creatine Kinase 702 H, Total Protein 5.7 L, Albumin 2.3 L, Globulin 3.4, Albumin/Globulin Ratio 0.7 L Current Medications Acetaminophen (Tylenol) 650 mg PO Q6H PRN PRN PRN Reason: Pain Score 1-10/Temp > 100.7 F Al Hydroxide/Mg Hydroxide (Mylanta Ii) 30 ml PO Q6H PRN PRN PRN Reason: Gastric Burning Albuterol Sulfate (Ventolin Aerosols) 2.5 mg INHALATION Q2H PRN PRN PRN Reason: Dyspnea, wheezing Bupropion HCl (Wellbutrin Tablets) 75 mg PO BID [facility] Last Admin: 11/17/19 21:43 Dose: 75 mg Documented by: Calamine/Phenol (Calmoseptine Ointment) 1 applic TOPICAL BID [facility]; Protocol Last Admin: 11/17/19 21:39 Dose: 1 applic Documented by: Dicyclomine HCl (Bentyl) 20 mg PO Q6H PRN PRN PRN Reason: abdominal discomfort Enoxaparin Sodium (Lovenox) 40 mg SC DAILY [facility] Last Admin: 11/17/19 10:42 Dose: 40 mg Documented by: Famotidine (Pepcid) 20 mg PO BID [facility] Last Admin: 11/17/19 21:37 Dose: 20 mg Documented by: Folic Acid (Folic Acid) 1 mg PO DAILY@0800 [facility] Gabapentin (Neurontin) 300 mg PO Q8H PRN PRN PRN Reason: moderate to severe anxiety Guaifenesin (Mucinex) 1,200 mg PO BID [facility] Last Admin: 11/17/19 21:37 Dose: 1,200 mg Documented by: Hydralazine HCl (Apresoline Iv) 10 mg IV Q4H PRN PRN PRN Reason: SBP > 160 Hydroxyzine Pamoate (Vistaril Pamoate Capsule) 50 mg PO Q4H PRN PRN PRN Reason: mild anxiety Diltiazem HCl 125 mg/ Dextrose 125 mls @ 5 mls/hr IV .Q25H [facility]; Protocol Last Titration: 11/18/19 04:00 Dose: 5 mg/hr, 5 mls/hr Documented by: Sodium Chloride () 1,000 mls @ 150 mls/hr IV .Q6H40M [facility] Last Admin: 11/18/19 05:45 Dose: 150 mls/hr Documented by: Sodium Chloride () 250 mls @ 15 mls/hr IV .[id number] PRN PRN Reason: Saline Flush Sodium Chloride () 250 mls @ 15 mls/hr IV .[id number] PRN PRN Reason: Additional IVPB Infusion Last Infusion: 11/18/19 05:49 Dose: 0 mls/hr Documented by: Amiodarone HCl 360 mg/ (Dextrose) 200 mls @ 16.667 mls/hr CONT INF .Q12H [facility] Stop: 11/18/19 10:59 Last Infusion: 11/18/19 06:02 Dose: 0.5 mg/min, 16.7 mls/hr Documented by: Meropenem 1 gm/ Sodium (Chloride) 120 mls @ 33 mls/hr IV Q8 [facility] Last Admin: 11/18/19 05:45 Dose: 33 mls/hr Documented by: Potassium Phosphate 30 mm/ (Sodium Chloride) 260 mls @ 42 mls/hr IV X1 ONE Stop: 11/18/19 11:36 Last Admin: 11/18/19 05:44 Dose: 42 mls/hr Documented by: Loperamide HCl (Imodium) 2 mg PO Q4H PRN PRN PRN Reason: LOOSE STOOLS Loratadine (Claritin) 10 mg PO DAILY [facility] Last Admin: 11/17/19 10:42 Dose: 10 mg Documented by: Magnesium Hydroxide (Milk Of Magnesia) 30 ml PO DAILY PRN PRN PRN Reason: Constipation [facility]ivit[facility] ([facility]ivitamin) [facility] Last Admin: 11/17/19 10:42 Dose: 1 tablet Documented by: Nutritional Formula (Lactose Free) (Ensure Enlive) 120 ml PO 4X/DAY [facility] Last Admin: 11/17/19 21:41 Dose: 120 ml Documented by: Nystatin (Mycostatin Powder) 1 applic TOPICAL TID [facility]; Protocol Last Admin: 11/18/19 05:45 Dose: 1 applicatio Documented by: Ondansetron HCl (Zofran) 4 mg IV Q8H PRN PRN PRN Reason: NAUSEA/VOMITING Phenobarbital (Phenobarbital) 97.2 mg PO Q4H [facility]; Taper Stop: 11/21/19 17:59 Last Admin: 11/18/19 06:06 Dose: 97.2 mg Documented by: Potassium Phos/Sodium Phos (Neutra-Phos Packet) 1 packet PO 4X/DAY [facility] Prochlorperazine Edisylate (Compazine Iv) 5 mg IV Q4H PRN PRN PRN Reason: Breakthrough Nausea/Vomiting Psyllium Hydrophilic Mucilloid (Metamucil) 1 packet PO DAILY PRN PRN PRN Reason: Constipation Senna/Docusate Sodium (Senokot-S, [place]-Colace) 2 tablet PO BID PRN PRN Reason: Constipation Sodium Chloride (Menard Nasal Noel) 4 spray NASAL Q4H [facility] Last Admin: 11/18/19 05:46 Dose: 4 spray Documented by: Sodium Chloride () 10 - 40 ml IV UD PRN PRN Reason: SALINE FLUSH Last Admin: 11/17/19 12:04 Dose: 10 ml Documented by: Thiamine HCl (Vitamin B1) [facility] Throat Lozenges (Cepacol Sore Throat Lozenge) 1 lozenge MUCOUS MEM Q2H PRN PRN PRN Reason: SORE THROAT Trazodone HCl (Desyrel) 100 mg PO QHS PRN PRN Reason: INSOMNIA STROKE Vital Signs/Narrative: Vital Signs Temp Pulse Resp BP Pulse Ox 11/18/19 06:02 99.7 F H 93 13 144/72 H 100 11/18/19 05:00 92 14 137/69 H 100 11/18/19 04:00 98 16 137/71 H 100 Medical Necessity - Tobacco Use Smoking Status: Never smoker Tobacco Use: Non-smoker Assessment/Plan All Active Problems (Last Updated 10/20/19 @ 11:12 by Dayana Gibson) Septic shock (Acute) Aspiration pneumonia (Acute) UTI (urinary tract infection) (Acute) Atrial fibrillation with RVR (Acute) Nasal bone fractures (Acute) Rhabdomyolysis (Acute) Alcohol withdrawal seizure (Acute) Hyponatremia (Acute) Traumatic rhabdomyolysis (Acute) Anemia (Acute) Acute kidney injury (Resolved) Multiple rib fractures (Acute) Pneumonia (Resolved) Pulmonary contusion (Acute) Acute alcoholic hepatitis (Resolved) Alcohol intoxication (Resolved) Alcohol withdrawal (Resolved) History of subdural hematoma (Resolved) Hyponatremia (Resolved) Non-union of fracture (Resolved) The patient is a 59 y/o F w/ PMHx: Morbid Obesity, EtOH Abuse (6-12 ounce beers daily) with frequent falls with History of DT prior, Hx SDH s/p craniotomy, Hx DUI w/ trauma, Anxiety and Depression, Chronic Hyponatremia secondary to Beer potomania and SIADH Hx, Suspected GUTIERREZ with failure to perform sleep study, Hx L frontal CVA, Allergic rhinitis, GERD who presents to the [facility] ED on 11/17/19 early am, brought by family (her father) who found her in her home, underneath a book shelf which had fallen down on her. 1. Acute Septic Shock secondary to Aspiration Pneumonia and UTI: CXR in the ED w/ RLL infiltrate. Admission CBC w/ 19.4 with L shift. LA 8.3. Will admit to the ICU, discussed case with Dr. Chavarria ([employer]), will given an additional 2L bolus and continue aggressive MIVF, BP low transiently in the ED but improved, maintained on oxygen with wean as tolerated to room air, aspiration precautions, continued ATC duonebs, PRN albuterol, maintained on IV Rocephin and Flagyl and Vanc with eventual negative MRSA screen with de-escalation off vanc; however, following rocephin/azithromycin administration per ED patient with onset hives therefore administered IV benadryl/famotidine/deferred steroids as no hypoxia with transition to meropenem with planned 7 day course of treatment. Negative respiratory panel, requested sputum culture, negative urine antigens, COVID negative. UCx w/ preliminary GNR >100,000 CFU, awaiting speciation and sensitivities. Bld cx x 2 obtained in the ED. 2. Suspected acute EtOH Withdrawal with possible associated seizure: Maintained on seizure precautions, continue treatment of acute presentation as noted, initiated and continued on protocol with taper course of Phenobarbital, scheduled gabapentin for seizure prophylaxis, as needed Catapres, Bentyl, Vistaril, IV fluids, IV antiemetics, Tylenol as needed for pain. Case management consulted for assistance for transition to next level of rehabilitation care. Mag, phos supplementation ongoing. 3. New onset, Paroxsymal atrial fibrillation: EKG in ED w/ atrial fibrillation w/ RVR. Patient administered cardizem bolus and transitioned to drip in ED. Maintained on telemetry, unremarkable serial enzymes, supplemented magnesium, TSH and FT4 demonstrate hypothyroidism with increase of her home synthroid regimen, ECHO obtained w/ noted normal LV size, wall motion and systolic function, EF 75%, mildly enlarged LA, trivial MVI, inability to assess diastolic dysfunction, spectral Doppler demonstrates late peaking pattern near the LVOT with a peak velocity approaching 3 m/second consistent with hyperdynamic state. Given patient considerable fall history and risks thus will defer anticoagulation. BPs low in the ED transiently but improved w/ ICU transition, required addition of also amiodarone bolus x 2 and drip. Given ongoing issues with RVR, Cardiology consulted and following. SR conversion 11/17/19 midafternoon. 11/18/19 transition of drips to oral amiodarone and oral coreg. 4. Acute on Chronic Hyponatremia,Suspected secondary to Beer Potomania and Sepsis syndrome: Given #1 presentation, acute on chronic, given additional aggressive IVF bolus and continued MIVF currently, trending BMP with continued slow improvement. Mag being supplemented. TSH elevated and FT4 low with increase in her synthroid regimen. Delilah 48, UCr 94, UOsm 575. 11/18/19 Na 122, slowing improving with Nephrology recommended continued hydration. 5. Rhabdomyolysis, acute: Admission total CK 2115, unclear downtime, unclear of possible seizure activity with history of DTs prior and alcohol level upon admission 60, aggressively hydrating, monitoring outpatient, 11/18/19 TCK 702, improving. 6. Mechanical fall with nasal bone fracture, nondisplaced in addition to right great toe laceration and left lateral heel laceration: Given patient mechanical fall CT head, neck and facial bones were assessed in the ED with only acute finding noted nasal bone nondisplaced fracture. Maintained on continue nasal saline rinses with spray, ice and elevation of the head to assist with edema. Currently no necessity for operative intervention. Swelling improving with no obvious cosmetic deformity. Wound RN consulted for lacerations with continued dressing changes and local wound care. 7. Hyperglycemia: Admission BS elevated, no history of diabetes, admission hemoglobin 202, hemoglobin A1c 6.0%, nutrition consulted, encouraged lifestyle/diet alterations to avoid further elevation of her A1c. 8. Hypokalemia: Admission potassium 3.0, oral supplementation given, magnesium levels supplemented, 11/18/19 K 3.7. 9. History of mechanical fall with SDH: status post craniotomy, resolved but very high fall risk given ongoing alcohol abuse. 10. History of CVA: Reported history of prior stroke, given intent for sobriety following lengthy fall risk discussion, will place on asa 81 mg daily, continue coreg recently added with d/c prior atenolol, add lower dose statin. 11. Anxiety and depression: We will continue patient home bupropion regimen. 12. Morbid Obesity: Weight loss and lifestyle changes encouraged, nutrition consulted. 13. Hypertension: Off cardizem and amiodarone drip, now transitioned to coreg 14. GERD: We will continue famotidine. 15. Hypothyroidism: TSH mildly elevated and T4 low, will increase her to 250 mcg daily and recommend repeat outpatient thyroid function testing per PCP. 16. DVT prophylaxis: SCDs, Lovenox in a.m. 17. CODE status: Full Code. Inpatient E&M: 09266 Subs Hosp L3
[2019-11-18] MEDS: buPROPion 75 MG Tablet PO ×2 (09:38→21:25)
[2019-11-18] MEDS: guaiFENesin 1,200 MG Tablet 1200 MG PO ×2 (09:38→21:22)
[2019-11-18] MEDS: Loratadine 10 MG Tablet PO (09:38)
[2019-11-18] MEDS: Folic Acid 1 MG Tablet PO (09:38)
[2019-11-18] MEDS: Famotidine 20 MG Tablet PO ×2 (09:38→21:24)
[2019-11-18] MEDS: Multivitamins,Therapeutic Tablet 1 TABLET PO (09:38)
[2019-11-18] MEDS: Na Biphos/Potassium Phosphate PACKET 1 PACKET PO ×4 (09:38→21:23)
[2019-11-18] MEDS: Thiamine Hydrochloride 100 MG Tablet PO (09:38)
[2019-11-18] MEDS: Enoxaparin 40 MG/0.4 ML Syringe SC (09:39)
[2019-11-18] MEDS: Menthol/Lanolin/Calamine/Znox 113 GM Tube 1 APPLIC TOPICAL ×3 (09:39→21:20)
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
--- NOTE | 2019-11-18 10:40 | CASEMGMT ---
DANAY JUAREZ Face to Face with patient for initial transition planning/care coordination assessment. DANAY JUAREZ introduced self and role at [facility]. Patient sitting in chair, alert and oriented. Patient willing to participate in assessment and is able to answer all questions appropriately. Care providers, pharmacy, and demographics verified. Patient wishes to discharge home with resumption of her outpatient therapy at [facility]. Patient states she has no further needs or concerns at this time. CM to follow for discharge planning needs that may arise. PCP: Deon Specialists: none Preferred Pharmacy: [facility] Insurance: [email or web address] Prescription Benefit: yes Living Will/HPOA: none LNOK: parents Living Arrangements: Patient live alone in a 1 story home with ramp to enter the home. Patient states she is independent at home. Transportation: parents DME/HHC: patient states she has tub bench, raised toilet, walker, wheelchair, and slide board. Patient states she was working with outpatient therapy and has been walking 30 feet. Patient states she drinks 5-6 beers per day. Patient states she would like resources to stop drinking. DANAY JUAREZ updated SW. Disposition Plan: Patient to discharge home with family support, resumption of outpatient therapy, and follow-up plans in place. Shavon REES, RN, CM
[2019-11-18] MEDS: Carvedilol 6.25 MG Tablet PO ×2 (11:24→21:20)
[2019-11-18] MEDS: Amiodarone 200 MG Tablet 400 MG PO ×2 (11:24→21:20)
[2019-11-18 11:28] LABS: ALB/GLOB Ratio 0.7 RATIO (0.9-2.4); AST(SGOT) 75 U/L (15-37); Alanine Aminotransfer ALT/SGPT 47 U/L (13-56); Albumin, Serum 2.4 g/dL (3.2-5.0); Alkaline Phosphatase 89 U/L (45-117); Anion Gap 6 (5-15); BUN 6 mg/dL (7-18); BUN/Creat Ratio 10.8 RATIO (10-20); Calcium,Total 7.1 mg/dL (8.5-10.1); Chloride 87 mmol/L (98-107); Creatinine, Serum 0.56 mg/dL (0.55-1.02); EST Glomerular Filtration Rate 119 mL/min (>60); Est Glom Filt Rate - Afr Amer 144 mL/min (>60); Estimated Creatinine Clearance 106.49 ml/min; Globulin 3.6 g/dL (2.2-4.2); Glucose 141 mg/dL (74-106); Potassium 3.7 mmol/L (3.5-5.1); Sodium Level 122 mmol/L (136-145); T4 Free Direct 0.49 ng/dL (0.76-1.46); Thyroid Stim Hormone (TSH) 5.57 uIU/mL (0.358-3.74)
[2019-11-18] MEDS: Ondansetron 4 MG/2 ML Vial IV (17:33)
[2019-11-18] MEDS: 0.9% Saline Lock 10 ML Syringe IV (17:33)
[2019-11-18] MEDS: Atorvastatin Calcium 20 MG Tablet PO (21:22)
[2019-11-19] VITALS (11 sets, daily range): BP systolic 133–158; BP diastolic 72–106; PULSE 88–97; RESP 16–20; TEMP 36.6–37.2; O2SAT 94–97
[2019-11-19] MEDS: Phenobarbital 32.4 MG Tablet 64.8 MG PO ×6 (01:48→23:34)
[2019-11-19] MEDS: Sodium Chloride 0.65% 1 SPRAY SPRAY.BTL 4 SPRAY NASAL ×6 (01:50→21:17)
[2019-11-19] MEDS: 0.9% Normal Saline 1,000 ML 150 ML IV ×2 (04:20→10:28)
[2019-11-19] MEDS: Levothyroxine 100 MCG Tablet 200 MCG PO (05:58)
[2019-11-19] MEDS: Levothyroxine 50 MCG Tablet PO (06:00)
[2019-11-19] MEDS: Nystatin Powder 15gm Bottle 1 APPLIC TOPICAL ×3 (06:02→21:19)
--- NOTE | 2019-11-19 07:04 | PN_ITS ---
Patient Problems: Active and Suspected Problems (Last Updated 10/20/19 @ 11:12 by Dayana Gibson) Septic shock (Acute) Aspiration pneumonia (Acute) UTI (urinary tract infection) (Acute) Atrial fibrillation with RVR (Acute) Nasal bone fractures (Acute) Rhabdomyolysis (Acute) Alcohol withdrawal seizure (Acute) Subjective: Patient with recent transition day prior to ICU without event. Patient does note that she slept poorly and is having issues caring for self including even ability to use the restroom without assist. She does state that she has been having coughing fits but shortness of breath has improved. Discussed with patient and case management need for transition to skilled facility to which patient is agreeable and is requested avenues once clinically appropriate. Patient notes withdrawal symptoms from her alcohol withdrawal have nearly resolved. She denies any nasal fracture associated bone pain and notes this is improved. Patient denies fevers, chills, nausea, emesis, abdominal pain, chest pain or dyspnea. Objective: Physical Examination: General: awake, alert, oriented x 3 and cooperative, seated upright in the PCU bedside chair, more fatigued than day prior, still resolving edema to the face, bilateral eye as well as nasal bridge and forehead ecchymoses. Skin: normal color, turgor, no icterus, cyanosis except very staged ecchymoses to the face and to the extremities likely secondary to serial falls, more recently noted small laceration to the front forehead with lessening of the swelling, small laceration across the bridge of the nose, nondisplaced appearing with lessened swelling, laceration to the left heel as well as laceration to the right lateral great toe dressed. HEENT: AT/NC, EOMI, PERRLA, improved MMM, during discussions some concern for secretion management. Lungs: Ongoing improved effort but remains diminished, greater bilateral bases, right greater than left, no rales, ronchi or wheezing. Heart: Regular rate and rhythm; no gallop, rub audible. Abdomen: soft, morbidly obese, NTTP, ND, normal BS. Extremities: no cyanosis, clubbing, or edema, see skin. Neurological: patient awake, alert, oriented as noted; cognitive function baseline intact; pupils equally reactive to light and accomodation; cranial nerves II-XII grossly normal, moving all 4 extremities, no focal deficits, strength improved, moderately globally decreased secondary to acute presentation. Psychiatric: affect appears mildly flat today, fatigued, no acute evidence of depressive or anxiety feelings. Vitals/I&O's: Vital Signs Temp Pulse Resp BP Pulse Ox 98.4 F 90 16 152/97 H 94 11/19/19 02:01 11/19/19 03:00 11/19/19 06:00 11/19/19 02:01 11/19/19 02:01 Oxygen Flow Rate (L/min) 2 Oxygen Delivery Method Room Air Weight: 281 lb 1.43 oz Body Mass Index (BMI) 40.2 Intake and Output for Last 24 Hours 11/17/19 11/18/19 11/19/19 23:59 23:59 23:59 Intake Total 7029.76 / 7071.46 5392.07 / 5732.07 1560 / 1560 Output Total 415 / 475 390 / 390 Balance 6614.76 / 6596.46 5002.07 / 5342.07 1560 / 1560 Microbiology Past 72 Hours 11/17/19 07:00 Urine Catheter - Catheter Urine Culture - Preliminary GNR lactose inside phone sales 11/17/19 07:00 Urine, Clean Catch Streptococcus pneumoniae Antigen (M - Final 11/17/19 07:00 Urine, Clean Catch Legionella Antigen - Final 11/17/19 09:45 Mucosa - Nose Respiratory Panel (PCR) - Final Laboratory Results 11/18/19 10:55: Sodium 122 L, Potassium 3.7, Chloride 87 L, Carbon Dioxide 29.0, Anion Gap 6, BUN 6 L, Creatinine 0.56, Estim Creat Clear Calc 106.49, Est GFR (MDRD) Af Amer 144, Est GFR (MDRD) Non-Af 119, BUN/Creatinine Ratio 10.8, Glucose 141 H, Calcium 7.1 L, Total Bilirubin 0.80, AST 75 H, ALT 47, Alkaline Phosphatase 89, Total Protein 6.0 L, Albumin 2.4 L, Globulin 3.6, Albumin/Globulin Ratio 0.7 L, TSH 5.57 H, Free T4 0.49 L Current Medications Acetaminophen (Tylenol) 650 mg PO Q6H PRN PRN PRN Reason: Pain Score 1-10/Temp > 100.7 F Al Hydroxide/Mg Hydroxide (Mylanta Ii) 30 ml PO Q6H PRN PRN PRN Reason: Gastric Burning Albuterol Sulfate (Ventolin Aerosols) 2.5 mg INHALATION Q2H PRN PRN PRN Reason: Dyspnea, wheezing Amiodarone HCl (Cordarone) 400 mg PO BID [facility] Last Admin: 11/18/19 21:20 Dose: 400 mg Documented by: Aspirin (Aspirin, Baby) 81 mg PO DAILY@0800 [facility] Atorvastatin Calcium (Lipitor) 20 mg PO QHS [facility] Last Admin: 11/18/19 21:22 Dose: 20 mg Documented by: Bupropion HCl (Wellbutrin Tablets) 75 mg PO BID [facility] Last Admin: 11/18/19 21:25 Dose: 75 mg Documented by: Calamine/Phenol (Calmoseptine Ointment) 1 applic TOPICAL 4X/DAY [facility]; Protocol Last Admin: 11/18/19 21:20 Dose: 1 applic Documented by: Carvedilol (Coreg) 6.25 mg PO BID [facility] Last Admin: 11/18/19 21:20 Dose: 6.25 mg Documented by: Dicyclomine HCl (Bentyl) 20 mg PO Q6H PRN PRN PRN Reason: abdominal discomfort Emollient Ointment (Eucerin Intensive Repair) 1 applic TOPICAL QHS [facility]; Protocol Last Admin: 11/18/19 21:21 Dose: 1 applicatio Documented by: Enoxaparin Sodium (Lovenox) 40 mg SC DAILY [facility] Last Admin: 11/18/19 09:39 Dose: 40 mg Documented by: Famotidine (Pepcid) 20 mg PO BID [facility] Last Admin: 11/18/19 21:24 Dose: 20 mg Documented by: Folic Acid (Folic Acid) 1 mg PO DAILY@0800 [facility] Last Admin: 11/18/19 09:38 Dose: 1 mg Documented by: Gabapentin (Neurontin) 300 mg PO Q8H PRN PRN PRN Reason: moderate to severe anxiety Guaifenesin (Mucinex) 1,200 mg PO BID [facility] Last Admin: 11/18/19 21:22 Dose: 1,200 mg Documented by: Hydralazine HCl (Apresoline Iv) 10 mg IV Q4H PRN PRN PRN Reason: SBP > 160 Hydroxyzine Pamoate (Vistaril Pamoate Capsule) 50 mg PO Q4H PRN PRN PRN Reason: mild anxiety Sodium Chloride () 1,000 mls @ 150 mls/hr IV .Q6H40M [facility] Last Admin: 11/19/19 04:20 Dose: 150 mls/hr Documented by: Sodium Chloride () 250 mls @ 15 mls/hr IV .[id number] PRN PRN Reason: Saline Flush Sodium Chloride () 250 mls @ 15 mls/hr IV .[id number] PRN PRN Reason: Additional IVPB Infusion Last Infusion: 11/18/19 05:49 Dose: 0 mls/hr Documented by: Meropenem 1 gm/ Sodium (Chloride) 120 mls @ 33 mls/hr IV Q8 [facility] Stop: 11/24/19 14:01 Last Admin: 11/19/19 05:56 Dose: 33 mls/hr Documented by: Levothyroxine Sodium (Synthroid) 200 mcg PO DAILY@0600 [facility] Last Admin: 11/19/19 05:58 Dose: 200 mcg Documented by: Levothyroxine Sodium (Synthroid) 50 mcg PO DAILY@0600 [facility] Last Admin: 11/19/19 06:00 Dose: 50 mcg Documented by: Loperamide HCl (Imodium) 2 mg PO Q4H PRN PRN PRN Reason: LOOSE STOOLS Loratadine (Claritin) 10 mg PO DAILY [facility] Last Admin: 11/18/19 09:38 Dose: 10 mg Documented by: Magnesium Hydroxide (Milk Of Magnesia) 30 ml PO DAILY PRN PRN PRN Reason: Constipation Multivitamins (Multivitamin) 1 tablet PO DAILYCM [facility] Last Admin: 11/18/19 09:38 Dose: 1 tablet Documented by: Nutritional Formula (Lactose Free) (Ensure Enlive) 120 ml PO 4X/DAY [facility] Last Admin: 11/18/19 21:21 Dose: 120 ml Documented by: Nystatin (Mycostatin Powder) 1 applic TOPICAL TID [facility]; Protocol Last Admin: 11/19/19 06:02 Dose: 1 applicatio Documented by: Ondansetron HCl (Zofran) 4 mg IV Q8H PRN PRN PRN Reason: NAUSEA/VOMITING Last Admin: 11/18/19 17:33 Dose: 4 mg Documented by: Phenobarbital (Phenobarbital) 64.8 mg PO Q4H [facility]; Taper Stop: 11/21/19 17:59 Last Admin: 11/19/19 05:56 Dose: 64.8 mg Documented by: Potassium Phos/Sodium Phos (Neutra-Phos Packet) 1 packet PO 4X/DAY [facility] Last Admin: 11/18/19 21:23 Dose: 1 packet Documented by: Prochlorperazine Edisylate (Compazine Iv) 5 mg IV Q4H PRN PRN PRN Reason: Breakthrough Nausea/Vomiting Psyllium Hydrophilic Mucilloid (Metamucil) 1 packet PO DAILY PRN PRN PRN Reason: Constipation Senna/Docusate Sodium (Senokot-S, [place]-Colace) 2 tablet PO BID PRN PRN Reason: Constipation Sodium Chloride (Parmer Nasal Maurepas) 4 spray NASAL Q4H [facility] Last Admin: 11/19/19 06:02 Dose: 4 spray Documented by: Sodium Chloride () 10 - 40 ml IV UD PRN PRN Reason: SALINE FLUSH Last Admin: 11/18/19 17:33 Dose: 10 ml Documented by: Thiamine HCl (Vitamin B1) 100 mg PO DAILYCM [facility] Last Admin: 11/18/19 09:38 Dose: 100 mg Documented by: Throat Lozenges (Cepacol Sore Throat Lozenge) 1 lozenge MUCOUS MEM Q2H PRN PRN PRN Reason: SORE THROAT Trazodone HCl (Desyrel) 100 mg PO QHS PRN PRN Reason: INSOMNIA STROKE Vital Signs/Narrative: Vital Signs Resp 11/19/19 06:00 16 Medical Necessity - Tobacco Use Smoking Status: Never smoker Tobacco Use: Non-smoker Assessment/Plan All Active Problems (Last Updated 10/20/19 @ 11:12 by Dayana Gibson) Septic shock (Acute) Aspiration pneumonia (Acute) UTI (urinary tract infection) (Acute) Atrial fibrillation with RVR (Acute) Nasal bone fractures (Acute) Rhabdomyolysis (Acute) Alcohol withdrawal seizure (Acute) Hyponatremia (Acute) Traumatic rhabdomyolysis (Acute) Anemia (Acute) Acute kidney injury (Resolved) Multiple rib fractures (Acute) Pneumonia (Resolved) Pulmonary contusion (Acute) Acute alcoholic hepatitis (Resolved) Alcohol intoxication (Resolved) Alcohol withdrawal (Resolved) History of subdural hematoma (Resolved) Hyponatremia (Resolved) Non-union of fracture (Resolved) The patient is a 59 y/o F w/ PMHx: Morbid Obesity, EtOH Abuse (6-12 ounce beers daily) with frequent falls with History of DT prior, Hx SDH s/p craniotomy, Hx DUI w/ trauma, Anxiety and Depression, Chronic Hyponatremia secondary to Beer potomania and SIADH Hx, Suspected GUTIERREZ with failure to perform sleep study, Hx L frontal CVA, Allergic rhinitis, GERD who presents to the [facility] ED on 11/17/19 early am, brought by family (her father) who found her in her home, underneath a book shelf which had fallen down on her. 1. Acute Septic Shock secondary to Aspiration Pneumonia and Complicated Klebsiella UTI: CXR in the ED w/ RLL infiltrate. Admission CBC w/ 19.4 with L shift. LA 8.3. Initially admitted to the ICU, consultation with Dr. Chavarria (Logistics Lead), given additional 2L bolus and continued aggressive MIVF, BP low transiently in the ED but improved, maintained on oxygen with wean as tolerated to room air, aspiration precautions, continued ATC duonebs, PRN albuterol, maintained on IV Rocephin and Flagyl and Vanc with eventual negative MRSA screen with de-escalation off vanc; however, following rocephin/azithromycin administration per ED patient with onset hives therefore administered IV benadryl/famotidine/deferred steroids as no hypoxia with transition to meropenem with planned 7 day course of treatment. Plan transition to oral levaquin once appropriate. Negative respiratory panel, requested sputum culture but unable to elicit, negative urine antigens, COVID negative. UCx w/ preliminary GNR >100,000 CFU-->11/19/19 Klebsiella sensitive to all agents except ampicillin and nitrofurantoin therefore Levaquin would also be appropriate. Bld cx x 2 obtained in the ED. PT/OT/CM ongoing, Speech therapy consulted as concern for difficulty for patient management of secretions and possible aspiration ongoing. 2. Suspected acute EtOH Withdrawal with possible associated seizure: Maintained on seizure precautions, continue treatment of acute presentation as noted, initiated and continued on protocol with taper course of Phenobarbital, scheduled gabapentin for seizure prophylaxis, as needed Catapres, Bentyl, Vistaril, IV fluids, IV antiemetics, Tylenol as needed for pain. Case management consulted for assistance for transition to next level of rehabilitation care. Mag, phos supplementation ongoing as needed. 3. New onset, Paroxsymal atrial fibrillation: EKG in ED w/ atrial fibrillation w/ RVR. Patient administered cardizem bolus and transitioned to drip in ED. Maintained on telemetry, unremarkable serial enzymes, supplemented magnesium, TSH and FT4 demonstrate hypothyroidism with increase of her home synthroid regimen, ECHO obtained w/ noted normal LV size, wall motion and systolic function, EF 75%, mildly enlarged LA, trivial MVI, inability to assess diastolic dysfunction, spectral Doppler demonstrates late peaking pattern near the LVOT with a peak velocity approaching 3 m/second consistent with hyperdynamic state. Given patient considerable fall history and risks thus will defer anticoagulation. BPs low in the ED transiently but improved w/ ICU transition, required addition of also amiodarone bolus x 2 and drip. Given ongoing issues with RVR, Cardiology consulted and following. SR conversion 11/17/19 midafternoon. 11/18/19 transition of drips to oral amiodarone and oral coreg, 11/19/2019 cardiology directed Coreg increase secondary to ongoing mild tachycardia. Cardiology did note chads Vascor 1 and agreed with deferral of any anti-coagulation given high risk. 4. Acute on Chronic Hyponatremia,Suspected secondary to Beer Potomania and Sepsis syndrome: Given #1 presentation, acute on chronic, given additional aggressive IVF bolus and continued MIVF currently, trending BMP with continued slow improvement. Mag being supplemented. TSH elevated and FT4 low with increase in her synthroid regimen. Delilah 48, UCr 94, UOsm 575. 11/19/19 Na 124, slowing improving with Nephrology recommended continued hydration but plan decreased to 75 cc/h on 11/19/2019.. 5. Rhabdomyolysis, acute: Admission total CK 2115, unclear downtime, unclear of possible seizure activity with history of DTs prior and alcohol level upon admission 60, aggressively hydrating, monitoring outpatient, 11/19/19 TCK 380, improving. 6. Mechanical fall with nasal bone fracture, nondisplaced in addition to right great toe laceration and left lateral heel laceration: Given patient mechanical fall CT head, neck and facial bones were assessed in the ED with only acute finding noted nasal bone nondisplaced fracture. Maintained on continue nasal saline rinses with spray, ice and elevation of the head to assist with edema. Currently no necessity for operative intervention. Swelling improving with no obvious cosmetic deformity. Wound RN consulted for lacerations with continued dressing changes and local wound care. 7. Hyperglycemia consistent with prediabetes: Admission BS elevated, no history of diabetes, admission hemoglobin 202, hemoglobin A1c 6.0%, nutrition consulted, encouraged lifestyle/diet alterations to avoid further elevation of her A1c, transitioned to ADA diet. 8. Hypokalemia: Admission potassium 3.0, oral supplementation given, magnesium levels supplemented, 11/19/19 K 3.6. 9. History of mechanical fall with SDH: status post craniotomy, resolved but very high fall risk given ongoing alcohol abuse. 10. History of CVA: Reported history of prior stroke, given intent for sobriety following lengthy fall risk discussion, will place on asa 81 mg daily, continue coreg recently added with d/c prior atenolol, add lower dose statin. 11. Anxiety and depression: We will continue patient home bupropion regimen. 12. Morbid Obesity: Weight loss and lifestyle changes encouraged, nutrition consulted. 13. Hypertension: Off cardizem and amiodarone drip, now transitioned to coreg 14. GERD: We will continue famotidine. 15. Hypothyroidism: TSH mildly elevated and T4 low, increased her synthroid to 250 mcg daily and recommend repeat outpatient thyroid function testing per PCP. 16. DVT prophylaxis: SCDs, Lovenox in a.m. 17. CODE status: Full Code. Inpatient E&M: 18482 Subs Hosp L2
[2019-11-19 07:24] LABS: Absolute Lymphocyte Count 0.64 X10^3/uL (0.83-4.51); Absolute Neutrophil Count 7.5 X10^3/uL (2.0-7.7); Basophil# 0.01 X10^3/uL; Basophil% 0.1 % (0-1); Eosinophil# 0.08 X10^3/uL; Eosinophils% 0.9 % (0-5); Hematocrit 33.9 % (37-47); Hemoglobin 11.1 g/dL (12.0-15.0); Lymphocyte # 0.64 X10^3/ul (4.0); Lymphocyte % 7.3 % (19-41); Mean Corp Hgb Conc 32.7 g/dL (32-36); Mean Corpuscular Hgb 27.4 pg (27.0-32.0); Mean Corpuscular Volume 83.7 fL (81-99); Monocyte# 0.53 X10^3/uL; NRBC Flagged by Analyzer 0 % (0-5); Neutrophil # 7.48 X10^3/uL (2.7-7.7); Neutrophil % 84.9 % (47-70); Platelet Count 133 K/mm3 (150-450); RBC Distribution Width SD 46.1 fl (35.1-43.9); Red Blood Count 4.05 M/mm3 (4.2-5.4); White Blood Count 8.8 K/mm3 (4.4-11.0)
[2019-11-19 08:03] LABS: ALB/GLOB Ratio 0.7 RATIO (0.9-2.4); AST(SGOT) 57 U/L (15-37); Alanine Aminotransfer ALT/SGPT 43 U/L (13-56); Albumin, Serum 2.3 g/dL (3.2-5.0); Alkaline Phosphatase 84 U/L (45-117); Anion Gap 7 (5-15); BUN 7 mg/dL (7-18); BUN/Creat Ratio 16.8 RATIO (10-20); CPK Total, Creatine Kinase 380 U/L (26-192); Calcium,Total 7.3 mg/dL (8.5-10.1); Chloride 89 mmol/L (98-107); Creatinine, Serum 0.42 mg/dL (0.55-1.02); EST Glomerular Filtration Rate 166 mL/min (>60); Est Glom Filt Rate - Afr Amer 201 mL/min (>60); Estimated Creatinine Clearance 141.98 ml/min; Globulin 3.4 g/dL (2.2-4.2); Glucose 111 mg/dL (74-106); Magnesium 2.1 mg/dL (1.6-2.6); Phosphorus 1.9 mg/dL (2.5-4.9); Potassium 3.6 mmol/L (3.5-5.1); Protein, Total 5.7 g/dL (6.4-8.2); Sodium Level 124 mmol/L (136-145)
[2019-11-19] MEDS: Folic Acid 1 MG Tablet PO (08:26)
[2019-11-19] MEDS: Multivitamins,Therapeutic Tablet 1 TABLET PO (08:26)
[2019-11-19] MEDS: Aspirin 81 MG TAB.CHEW PO (08:26)
[2019-11-19] MEDS: Thiamine Hydrochloride 100 MG Tablet PO (08:27)
--- NOTE | 2019-11-19 08:43 | PCM.PN.PUL ---
Patient Problems: Active and Suspected Problems (Last Updated 10/20/19 @ 11:12 by Dayana Gibson) Septic shock (Acute) Aspiration pneumonia (Acute) UTI (urinary tract infection) (Acute) Atrial fibrillation with RVR (Acute) Nasal bone fractures (Acute) Rhabdomyolysis (Acute) Alcohol withdrawal seizure (Acute) Subjective: The patient was seen and examined at the bedside this morning. Events from the last 24 hours have been reviewed. The patient is currently afebrile, hemodynamically stable and maintaining appropriate oxygen saturations on room air. Objective: The patient's most recent lab work, culture data and imaging studies have all been personally reviewed. Surface echocardiogram revealed normal LV size and function with an ejection fraction of 75%. Coronavirus PCR was negative. Respiratory viral panel was negative. Strep and urine Legionella antigens were negative. Urine culture was positive for Klebsiella pneumoniae. - Physical Exam Vitals/I&O's: Vital Signs Temp Pulse Resp BP Pulse Ox 98 F 88 16 145/84 H 95 11/19/19 08:00 11/19/19 08:00 11/19/19 08:00 11/19/19 08:00 11/19/19 08:00 Oxygen Flow Rate (L/min) 2 Oxygen Delivery Method Room Air Weight: 281 lb 1.43 oz Body Mass Index (BMI) 40.2 Intake and Output for Last 24 Hours 11/17/19 11/18/19 11/19/19 23:59 23:59 23:59 Intake Total 7029.76 / 7071.46 5392.07 / 5732.07 1560 / 1560 Output Total 415 / 475 390 / 390 Balance 6614.76 / 6596.46 5002.07 / 5342.07 1560 / 1560 General: Alert, No apparent distress HEENT: EOMI, Normocephalic Oral: No Gingival or Mucosal Lesions/ Ulcerations Neck: Supple, No Nodes, Trachea Midline Lungs: No rhonchi, No wheeze, No rales, Diminished Cardiovascular: Regular rate, Regular Rhythm Abdomen: Bowel Sounds Present, Soft, Non Tender, Obese Extremities: No clubbing, No cyanosis, No edema Skin: - - No significant change from previous Musculoskeletal: No Muscle Wasting Lymphatic: No Cervical, Supraclavicular, or Inguinal Adenopathy Neurological: Cranial nerves II-XII grossly intact, Neuro grossly intact Psych/Mental Status: Flat Affect Labs (Last 48 Hours) 11/17/19 11/17/19 11/17/19 03:31 05:59 05:59 WBC RBC Hgb Hct MCV MCH MCHC RDW Std Deviation RDW Coeff of Cecil Plt Count MPV Immature Gran % (Auto) Neut % (Auto) Lymph % (Auto) [place] % (Auto) Eos % (Auto) Baso % (Auto) Absolute Neuts (auto) Absolute Lymphs (auto) Nucleated RBC % Sodium 118 L* Potassium 3.0 L Chloride 78 L Carbon Dioxide 28.0 Anion Gap 12 BUN 4 L Creatinine 0.56 Estim Creat Clear Calc 106.49 Est GFR (MDRD) Af Amer 144 Est GFR (MDRD) Non-Af 119 BUN/Creatinine Ratio 7.2 L Glucose 202 H Hemoglobin A1c 6.0 H Lactic Acid Calcium 7.1 L Phosphorus 1.6 L Magnesium 1.5 L Total Bilirubin AST ALT Alkaline Phosphatase Ammonia Total Creatine Kinase Total Protein Albumin Globulin Albumin/Globulin Ratio TSH 1.21 Free T4 0.58 L Urine Osmolality Ur Random Sodium Urine Creatinine COVID-19 (KAREN) Not Detected MRSA (PCR) 11/17/19 11/17/19 11/17/19 07:00 07:00 07:00 WBC RBC Hgb Hct MCV MCH MCHC RDW Std Deviation RDW Coeff of Cecil Plt Count MPV Immature Gran % (Auto) Neut % (Auto) Lymph % (Auto) [place] % (Auto) Eos % (Auto) Baso % (Auto) Absolute Neuts (auto) Absolute Lymphs (auto) Nucleated RBC % Sodium Potassium Chloride Carbon Dioxide Anion Gap BUN Creatinine Estim Creat Clear Calc Est GFR (MDRD) Af Amer Est GFR (MDRD) Non-Af BUN/Creatinine Ratio Glucose Hemoglobin A1c Lactic Acid Calcium Phosphorus Magnesium Total Bilirubin AST ALT Alkaline Phosphatase Ammonia Total Creatine Kinase Total Protein Albumin Globulin Albumin/Globulin Ratio TSH Free T4 Urine Osmolality 575 Ur Random Sodium 48 Urine Creatinine 94.00 COVID-19 (KAREN) MRSA (PCR) 11/17/19 11/17/19 11/17/19 09:55 09:55 11:45 WBC RBC Hgb Hct MCV MCH MCHC RDW Std Deviation RDW Coeff of Cecil Plt Count MPV Immature Gran % (Auto) Neut % (Auto) Lymph % (Auto) [place] % (Auto) Eos % (Auto) Baso % (Auto) Absolute Neuts (auto) Absolute Lymphs (auto) Nucleated RBC % Sodium 116 L* Potassium 3.5 Chloride 77 L Carbon Dioxide 29.0 Anion Gap 10 BUN 4 L Creatinine 0.66 Estim Creat Clear Calc 90.35 Est GFR (MDRD) Af Amer 118 Est GFR (MDRD) Non-Af 98 BUN/Creatinine Ratio 6.1 L Glucose 275 H Hemoglobin A1c Lactic Acid Calcium 7.3 L Phosphorus Magnesium Total Bilirubin AST ALT Alkaline Phosphatase Ammonia < 10.0 L Total Creatine Kinase Total Protein Albumin Globulin Albumin/Globulin Ratio TSH Free T4 Urine Osmolality Ur Random Sodium Urine Creatinine COVID-19 (KAREN) MRSA (PCR) Negative 11/17/19 11/17/19 11/17/19 11:45 14:00 16:35 WBC RBC Hgb Hct MCV MCH MCHC RDW Std Deviation RDW Coeff of Cecil Plt Count MPV Immature Gran % (Auto) Neut % (Auto) Lymph % (Auto) [place] % (Auto) Eos % (Auto) Baso % (Auto) Absolute Neuts (auto) Absolute Lymphs (auto) Nucleated RBC % Sodium 118 L* 117 L* Potassium 3.5 4.2 Chloride 80 L 83 L Carbon Dioxide 29.0 27.0 Anion Gap 9 7 BUN 5 L 5 L Creatinine 0.69 0.61 Estim Creat Clear Calc 86.42 97.76 Est GFR (MDRD) Af Amer 112 130 Est GFR (MDRD) Non-Af 93 107 BUN/Creatinine Ratio 7.2 L 8.2 L Glucose 212 H 203 H Hemoglobin A1c Lactic Acid 1.7 Calcium 7.2 L 7.2 L Phosphorus Magnesium Total Bilirubin AST ALT Alkaline Phosphatase Ammonia Total Creatine Kinase Total Protein Albumin Globulin Albumin/Globulin Ratio TSH Free T4 Urine Osmolality Ur Random Sodium Urine Creatinine COVID-19 (KAREN) MRSA (PCR) 11/17/19 11/17/19 11/17/19 16:35 18:35 20:40 WBC RBC Hgb Hct MCV MCH MCHC RDW Std Deviation RDW Coeff of Cecil Plt Count MPV Immature Gran % (Auto) Neut % (Auto) Lymph % (Auto) [place] % (Auto) Eos % (Auto) Baso % (Auto) Absolute Neuts (auto) Absolute Lymphs (auto) Nucleated RBC % Sodium 120 L 120 L Potassium 3.8 4.0 Chloride 84 L 85 L Carbon Dioxide 28.0 29.0 Anion Gap 8 6 BUN 5 L 6 L Creatinine 0.71 0.71 Estim Creat Clear Calc 83.99 83.99 Est GFR (MDRD) Af Amer 108 108 Est GFR (MDRD) Non-Af 90 90 BUN/Creatinine Ratio 7.0 L 8.4 L Glucose 224 H 183 H Hemoglobin A1c Lactic Acid Calcium 7.0 L 7.5 L Phosphorus 2.3 L Magnesium 2.0 Total Bilirubin AST ALT Alkaline Phosphatase Ammonia Total Creatine Kinase Total Protein Albumin Globulin Albumin/Globulin Ratio TSH Free T4 Urine Osmolality Ur Random Sodium Urine Creatinine COVID-19 (KAREN) MRSA (PCR) 11/17/19 11/17/19 11/17/19 23:15 23:15 23:15 WBC RBC Hgb Hct MCV MCH MCHC RDW Std Deviation RDW Coeff of Cecil Plt Count MPV Immature Gran % (Auto) Neut % (Auto) Lymph % (Auto) [place] % (Auto) Eos % (Auto) Baso % (Auto) Absolute Neuts (auto) Absolute Lymphs (auto) Nucleated RBC % Sodium Cancelled 120 L Potassium Cancelled 4.2 Chloride Cancelled 86 L Carbon Dioxide Cancelled 27.0 Anion Gap Cancelled 7 BUN Cancelled 6 L Creatinine Cancelled 0.69 Estim Creat Clear Calc Cancelled 86.42 Est GFR (MDRD) Af Amer Cancelled 112 Est GFR (MDRD) Non-Af Cancelled 92 BUN/Creatinine Ratio Cancelled 8.6 L Glucose Cancelled 166 H Hemoglobin A1c Lactic Acid Calcium Cancelled 7.4 L Phosphorus Magnesium 2.4 Total Bilirubin AST ALT Alkaline Phosphatase Ammonia Total Creatine Kinase Total Protein Albumin Globulin Albumin/Globulin Ratio TSH Free T4 Urine Osmolality Ur Random Sodium Urine Creatinine COVID-19 (KAREN) MRSA (PCR) 11/18/19 11/18/19 11/18/19 01:40 04:45 04:45 WBC 15.8 H RBC 4.29 Hgb 11.6 L Hct 35.1 L MCV 81.8 MCH 27.0 MCHC 33.0 RDW Std Deviation 43.8 RDW Coeff of Cecil 14.9 H Plt Count 156 MPV 9.3 Immature Gran % (Auto) 0.600 Neut % (Auto) 89.9 H Lymph % (Auto) 5.2 L [place] % (Auto) 4.2 Eos % (Auto) 0.0 Baso % (Auto) 0.1 Absolute Neuts (auto) 14.2 H Absolute Lymphs (auto) 0.83 Nucleated RBC % 0 Sodium 122 L Potassium 3.6 Chloride 85 L Carbon Dioxide 29.0 Anion Gap 8 BUN 5 L Creatinine 0.56 Estim Creat Clear Calc 106.49 Est GFR (MDRD) Af Amer 142 Est GFR (MDRD) Non-Af 117 BUN/Creatinine Ratio 8.9 L Glucose 129 H Hemoglobin A1c Lactic Acid Calcium 7.3 L Phosphorus 1.5 L 2.2 L Magnesium 2.4 Total Bilirubin 0.90 AST 80 H ALT 48 Alkaline Phosphatase 85 Ammonia Total Creatine Kinase 702 H Total Protein 5.7 L Albumin 2.3 L Globulin 3.4 Albumin/Globulin Ratio 0.7 L TSH Free T4 Urine Osmolality Ur Random Sodium Urine Creatinine COVID-19 (KAREN) MRSA (PCR) 11/18/19 11/19/19 11/19/19 10:55 07:00 07:00 WBC 8.8 RBC 4.05 L Hgb 11.1 L Hct 33.9 L MCV 83.7 MCH 27.4 MCHC 32.7 RDW Std Deviation 46.1 H RDW Coeff of Cecil 15.0 H Plt Count 133 L MPV 10.0 Immature Gran % (Auto) 0.800 Neut % (Auto) 84.9 H Lymph % (Auto) 7.3 L [place] % (Auto) 6.0 Eos % (Auto) 0.9 Baso % (Auto) 0.1 Absolute Neuts (auto) 7.5 Absolute Lymphs (auto) 0.64 L Nucleated RBC % 0 Sodium 122 L 124 L Potassium 3.7 3.6 Chloride 87 L 89 L Carbon Dioxide 29.0 28.0 Anion Gap 6 7 BUN 6 L 7 Creatinine 0.56 0.42 L Estim Creat Clear Calc 106.49 141.98 Est GFR (MDRD) Af Amer 144 201 Est GFR (MDRD) Non-Af 119 166 BUN/Creatinine Ratio 10.8 16.8 Glucose 141 H 111 H Hemoglobin A1c Lactic Acid Calcium 7.1 L 7.3 L Phosphorus 1.9 L Magnesium 2.1 Total Bilirubin 0.80 0.60 AST 75 H 57 H ALT 47 43 Alkaline Phosphatase 89 84 Ammonia Total Creatine Kinase 380 H Total Protein 6.0 L 5.7 L Albumin 2.4 L 2.3 L Globulin 3.6 3.4 Albumin/Globulin Ratio 0.7 L 0.7 L TSH 5.57 H Free T4 0.49 L Urine Osmolality Ur Random Sodium Urine Creatinine COVID-19 (KAREN) MRSA (PCR) Microbiology 11/17/19 07:00 Urine Catheter - Catheter Urine Culture - Final Klebsiella pneumoniae sp pneum 11/17/19 07:00 Urine, Clean Catch Streptococcus pneumoniae Antigen (M - Final 11/17/19 07:00 Urine, Clean Catch Legionella Antigen - Final 11/17/19 09:45 Mucosa - Nose Respiratory Panel (PCR) - Final Clinical Impression(s) from Imaging Studies Brain CT 11/17/19 05:48 IMPRESSION: There is frontal scalp swelling. There are old craniotomy defects. There is NO skull fracture. is encephalomalacia in the LEFT frontal lobe suggesting old injury. There is no intracranial hemorrhage. There are no findings of an acute ischemic infarction. Electronically Signed: Tyson Berry MD at 7:00 EDT , Service support , Chest X-Ray 11/17/19 05:48 IMPRESSION: Faint RIGHT lower lobe infiltrate.. Electronically Signed: Tyson Berry MD at 6:57 EDT , Service support , Cervical Spine CT 11/17/19 05:50 IMPRESSION: Multilevel degenerative changes, as described above. There are NO fractures or malalignments. Electronically Signed: Tyson Berry MD at 7:05 EDT , Service support , Facial/Sinus 11/17/19 05:50 IMPRESSION: There are fractures of the nasal bone. Electronically Signed: Tyson Berry MD at 7:07 EDT , Service support , Chest X-Ray 11/18/19 05:55 IMPRESSION: Lungs are expanded. There are faint bilateral basilar infiltrates. There is no demonstrated pleural abnormality. Normal size heart. Electronically Signed: Tyson Berry MD at 5:24 EDT , Service support , Current Medications Acetaminophen (Tylenol) 650 mg PO Q6H PRN PRN PRN Reason: Pain Score 1-10/Temp > 100.7 F Al Hydroxide/Mg Hydroxide (Mylanta Ii) 30 ml PO Q6H PRN PRN PRN Reason: Gastric Burning Albuterol Sulfate (Ventolin Aerosols) 2.5 mg INHALATION Q2H PRN PRN PRN Reason: Dyspnea, wheezing Amiodarone HCl (Cordarone) 400 mg PO BID [facility] Last Admin: 11/18/19 21:20 Dose: 400 mg Documented by: Aspirin (Aspirin, Baby) 81 mg PO DAILY@0800 [facility] Last Admin: 11/19/19 08:26 Dose: 81 mg Documented by: Atorvastatin Calcium (Lipitor) 20 mg PO QHS [facility] Last Admin: 11/18/19 21:22 Dose: 20 mg Documented by: Bupropion HCl (Wellbutrin Tablets) 75 mg PO BID [facility] Last Admin: 11/18/19 21:25 Dose: 75 mg Documented by: Calamine/Phenol (Calmoseptine Ointment) 1 applic TOPICAL 4X/DAY [facility]; Protocol Last Admin: 11/18/19 21:20 Dose: 1 applic Documented by: Carvedilol (Coreg) 6.25 mg PO BID [facility] Last Admin: 11/18/19 21:20 Dose: 6.25 mg Documented by: Dicyclomine HCl (Bentyl) 20 mg PO Q6H PRN PRN PRN Reason: abdominal discomfort Emollient Ointment (Eucerin Intensive Repair) 1 applic TOPICAL QHS [facility]; Protocol Last Admin: 11/18/19 21:21 Dose: 1 applicatio Documented by: Enoxaparin Sodium (Lovenox) 40 mg SC DAILY [facility] Last Admin: 11/18/19 09:39 Dose: 40 mg Documented by: Famotidine (Pepcid) 20 mg PO BID [facility] Last Admin: 11/18/19 21:24 Dose: 20 mg Documented by: Folic Acid (Folic Acid) 1 mg PO DAILY@0800 [facility] Last Admin: 11/19/19 08:26 Dose: 1 mg Documented by: Gabapentin (Neurontin) 300 mg PO Q8H PRN PRN PRN Reason: moderate to severe anxiety Guaifenesin (Mucinex) 1,200 mg PO BID [facility] Last Admin: 11/18/19 21:22 Dose: 1,200 mg Documented by: Hydralazine HCl (Apresoline Iv) 10 mg IV Q4H PRN PRN PRN Reason: SBP > 160 Hydroxyzine Pamoate (Vistaril Pamoate Capsule) 50 mg PO Q4H PRN PRN PRN Reason: mild anxiety Sodium Chloride () 1,000 mls @ 150 mls/hr IV .[id number] [facility] Last Admin: 11/19/19 04:20 Dose: 150 mls/hr Documented by: Sodium Chloride () 250 mls @ 15 mls/hr IV .[id number] PRN PRN Reason: Saline Flush Sodium Chloride () 250 mls @ 15 mls/hr IV .[id number] PRN PRN Reason: Additional IVPB Infusion Last Infusion: 11/18/19 05:49 Dose: 0 mls/hr Documented by: Meropenem 1 gm/ Sodium (Chloride) 120 mls @ 33 mls/hr IV Q8 [facility] Stop: 11/24/19 14:01 Last Admin: 11/19/19 05:56 Dose: 33 mls/hr Documented by: Levothyroxine Sodium (Synthroid) 200 mcg PO DAILY@0600 [facility] Last Admin: 11/19/19 05:58 Dose: 200 mcg Documented by: Levothyroxine Sodium (Synthroid) 50 mcg PO DAILY@0600 [facility] Last Admin: 11/19/19 06:00 Dose: 50 mcg Documented by: Loperamide HCl (Imodium) 2 mg PO Q4H PRN PRN PRN Reason: LOOSE STOOLS Loratadine (Claritin) 10 mg PO DAILY [facility] Last Admin: 11/18/19 09:38 Dose: 10 mg Documented by: Magnesium Hydroxide (Milk Of Magnesia) 30 ml PO DAILY PRN PRN PRN Reason: Constipation [facility] Admin: 11/19/19 08:26 Dose: 1 tablet Documented by: Nutritional Formula (Lactose Free) (Ensure Enlive) 120 ml PO 4X/DAY [facility] Last Admin: 11/18/19 21:21 Dose: 120 ml Documented by: Nystatin (Mycostatin Powder) 1 applic TOPICAL TID [facility]; Protocol Last Admin: 11/19/19 06:02 Dose: 1 applicatio Documented by: Ondansetron HCl (Zofran) 4 mg IV Q8H PRN PRN PRN Reason: NAUSEA/VOMITING Last Admin: 11/18/19 17:33 Dose: 4 mg Documented by: Phenobarbital (Phenobarbital) 64.8 mg PO Q4H [facility]; Taper Stop: 11/21/19 17:59 Last Admin: 11/19/19 05:56 Dose: 64.8 mg Documented by: Potassium Phos/Sodium Phos (Neutra-Phos Packet) 1 packet PO 4X/DAY [facility] Last Admin: 11/18/19 21:23 Dose: 1 packet Documented by: Prochlorperazine Edisylate (Compazine Iv) 5 mg IV Q4H PRN PRN PRN Reason: Breakthrough Nausea/Vomiting Psyllium Hydrophilic Mucilloid (Metamucil) 1 packet PO DAILY PRN PRN PRN Reason: Constipation Senna/Docusate Sodium (Senokot-S, [place]-Colace) 2 tablet PO BID PRN PRN Reason: Constipation Sodium Chloride (Montz Nasal [place]) 4 spray NASAL Q4H [facility] Last Admin: 11/19/19 06:02 Dose: 4 spray Documented by: Sodium Chloride () 10 - 40 ml IV UD PRN PRN Reason: SALINE FLUSH Last Admin: 11/18/19 17:33 Dose: 10 ml Documented by: Thiamine HCl (Vitamin B1) 100 mg PO DAILYCM [facility] Last Admin: 11/19/19 08:27 Dose: 100 mg Documented by: Throat Lozenges (Cepacol Sore Throat Lozenge) 1 lozenge MUCOUS MEM Q2H PRN PRN PRN Reason: SORE THROAT Trazodone HCl (Desyrel) 100 mg PO QHS PRN PRN Reason: INSOMNIA Medical Necessity - Tobacco Use Smoking Status: Never smoker Tobacco Use: Non-smoker Assessment/Plan All Active Problems (Last Updated 10/20/19 @ 11:12 by Dayana Gibson) Septic shock (Acute) Aspiration pneumonia (Acute) UTI (urinary tract infection) (Acute) Atrial fibrillation with RVR (Acute) Nasal bone fractures (Acute) Rhabdomyolysis (Acute) Alcohol withdrawal seizure (Acute) Hyponatremia (Acute) Traumatic rhabdomyolysis (Acute) Anemia (Acute) Acute kidney injury (Resolved) Multiple rib fractures (Acute) Pneumonia (Resolved) Pulmonary contusion (Acute) Acute alcoholic hepatitis (Resolved) Alcohol intoxication (Resolved) Alcohol withdrawal (Resolved) History of subdural hematoma (Resolved) Hyponatremia (Resolved) Non-union of fracture (Resolved) RECOMMENDATIONS: 1. Okay to transition to Levaquin to complete 7-day treatment course. 2. Continue gentle IV fluid hydration and aggressive electrolyte repletion. 3. Continue CIWA protocol along with thiamine and folate repletion. 4. Rate/rhythm control strategy per cardiology recommendations. 5. Given the patient's lack of further ICU or pulmonary needs, will sign off. Please call with any additional questions. IMPRESSIONS: 1. Septic shock Improved. Potential infectious etiologies include possible right lower lobe pneumonia versus Klebsiella pneumonia urinary tract source of infection. Initial lactate was elevated to greater than 8. The patient has been adequately volume resuscitated. She remains hemodynamically stable. Antimicrobials can be de-escalated to Levaquin to complete treatment course. 2. Encephalopathy Likely secondary to recent alcohol ingestion. Mentation has improved at this time. We will continue to monitor clinically. Avoid sedating medications. 3. Hyponatremia/hypochloremia/hypophosphatemia Likely secondary to beer potomania and intravascular volume depletion. The patient is currently being volume resuscitated, with slow improvement in sodium level noted. Plan to continue gentle IV fluid hydration. Continue aggressive electrolyte repletion. 4. New onset atrial fibrillation with RVR/history of PFO Resolved. Continue rate/rhythm control strategy per cardiology recommendations. The patient does have a history of a PFO, but her history of recurrent falls would likely preclude her from consideration for systemic anticoagulation. 5. Longstanding history of alcoholism Continue CIWA protocol and monitor for alcohol withdrawal symptoms. Continue thiamine and folate. 6. Depression/hypothyroidism/obesity Complicates care, management, recovery and prognosis. Continue home medications as indicated. Physical therapy to work with the patient. This note was generated with [employer]aving[employer] software. It may contain incorrect words, spelling, and punctuation that were not noted in checking the note before signing. Inpatient E&M: 76028 Subs Hosp L2
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
[2019-11-19] MEDS: Famotidine 20 MG Tablet PO ×2 (10:17→21:17)
[2019-11-19] MEDS: Enoxaparin 40 MG/0.4 ML Syringe SC (10:18)
[2019-11-19] MEDS: guaiFENesin 1,200 MG Tablet 1200 MG PO ×2 (10:18→21:16)
[2019-11-19] MEDS: Na Biphos/Potassium Phosphate PACKET 1 PACKET PO ×3 (10:18→17:05)
[2019-11-19] MEDS: Menthol/Lanolin/Calamine/Znox 113 GM Tube 1 APPLIC TOPICAL ×4 (10:19→21:19)
[2019-11-19] MEDS: Loratadine 10 MG Tablet PO (10:19)
[2019-11-19] MEDS: Amiodarone 200 MG Tablet 400 MG PO ×2 (10:20→21:17)
[2019-11-19] MEDS: buPROPion 75 MG Tablet PO ×2 (10:20→21:16)
[2019-11-19] MEDS: Carvedilol 12.5 MG Tablet PO ×2 (10:28→17:04)
--- NOTE | 2019-11-19 13:46 | CASEMGMT ---
SW spoke with patient. Introduced self and role at [facility]. SW spoke with patient about going somewhere for rehab at d/c. She wants to go home, but SW told her that she is not doing well with therapy at all. SW asked if she would consider going back to [facility]. She said she would think about it. She did agree to let SW fax a referral. SW faxed referral to [facility] and spoke with Nazanin. They can take patient if that is what she decides. She will need insurance authorization so she will be here through the weekend. Shira [employer]
--- NOTE | 2019-11-19 13:59 | PCM.PN.REN ---
Patient Problems: Active and Suspected Problems (Last Updated 10/20/19 @ 11:12 by Dayana Gibson) Septic shock (Acute) Aspiration pneumonia (Acute) UTI (urinary tract infection) (Acute) Atrial fibrillation with RVR (Acute) Nasal bone fractures (Acute) Rhabdomyolysis (Acute) Alcohol withdrawal seizure (Acute) Subjective: confused, disoriented at times. Gurgling secretions, slurred speech. Sodium improving on NSS - Physical Exam Vitals/I&O's: Vital Signs Temp Pulse Resp BP Pulse Ox 98.8 F 89 20 H 133/72 H 95 11/19/19 12:08 11/19/19 12:08 11/19/19 12:08 11/19/19 12:08 11/19/19 12:08 Oxygen Flow Rate (L/min) 2 Oxygen Delivery Method Room Air Weight: 127.5 kg Body Mass Index (BMI) 40.2 Intake and Output for Last 24 Hours 11/17/19 11/18/19 11/19/19 23:59 23:59 23:59 Intake Total 7029.76 / 7071.46 5392.07 / 5732.07 2977.5 / 2977.5 Output Total 415 / 475 390 / 390 Balance 6614.76 / 6596.46 5002.07 / 5342.07 2977.5 / 2977.5 General: Alert, - - oriented Oral: Moist Mucosa, - Lungs: - - moist cough, secretions Cardiovascular: Regular rate Abdomen: Soft, Obese Extremities: No edema Psych/Mental Status: Appropriate, Alert and oriented to time, place, person, mood and affect Microbiology Past 72 Hours 11/17/19 06:30 Blood Culture (Wb) - Anticubital Right Blood Culture - Preliminary No growth in 48 hours. 11/17/19 06:50 Blood Culture (Wb) - Left Wrist Blood Culture - Preliminary No growth in 48 hours. 11/17/19 07:00 Urine Catheter - Catheter Urine Culture - Final Klebsiella pneumoniae sp pneum 11/17/19 07:00 Urine, Clean Catch Streptococcus pneumoniae Antigen (M - Final 11/17/19 07:00 Urine, Clean Catch Legionella Antigen - Final 11/17/19 09:45 Mucosa - Nose Respiratory Panel (PCR) - Final Laboratory Results 11/19/19 07:00: WBC 8.8, RBC 4.05 L, Hgb 11.1 L, Hct 33.9 L, MCV 83.7, MCH 27.4, MCHC 32.7, RDW Std Deviation 46.1 H, RDW Coeff of Cecil 15.0 H, Plt Count 133 L, MPV 10.0, Immature Gran % (Auto) 0.800, Neut % (Auto) 84.9 H, Lymph % (Auto) 7.3 L, [place] % (Auto) 6.0, Eos % (Auto) 0.9, Baso % (Auto) 0.1, Absolute Neuts (auto) 7.5, Absolute Lymphs (auto) 0.64 L, Nucleated RBC % 0 11/19/19 07:00: Sodium 124 L, Potassium 3.6, Chloride 89 L, Carbon Dioxide 28.0, Anion Gap 7, BUN 7, Creatinine 0.42 L, Estim Creat Clear Calc 141.98, Est GFR (MDRD) Af Amer 201, Est GFR (MDRD) Non-Af 166, BUN/Creatinine Ratio 16.8, Glucose 111 H, Calcium 7.3 L, Phosphorus 1.9 L, Magnesium 2.1, Total Bilirubin 0.60, AST 57 H, ALT 43, Alkaline Phosphatase 84, Total Creatine Kinase 380 H, Total Protein 5.7 L, Albumin 2.3 L, Globulin 3.4, Albumin/Globulin Ratio 0.7 L Current Medications Acetaminophen (Tylenol) 650 mg PO Q6H PRN PRN PRN Reason: Pain Score 1-10/Temp > 100.7 F Al Hydroxide/Mg Hydroxide (Mylanta Ii) 30 ml PO Q6H PRN PRN PRN Reason: Gastric Burning Albuterol Sulfate (Ventolin Aerosols) 2.5 mg INHALATION Q2H PRN PRN PRN Reason: Dyspnea, wheezing Amiodarone HCl (Cordarone) 400 mg PO BID [facility] Last Admin: 11/19/19 10:20 Dose: 400 mg Documented by: Aspirin (Aspirin, Baby) 81 mg PO DAILY@0800 [facility] Last Admin: 11/19/19 08:26 Dose: 81 mg Documented by: Atorvastatin Calcium (Lipitor) 20 mg PO QHS [facility] Last Admin: 11/18/19 21:22 Dose: 20 mg Documented by: Bupropion HCl (Wellbutrin Tablets) 75 mg PO BID [facility] Last Admin: 11/19/19 10:20 Dose: 75 mg Documented by: Calamine/Phenol (Calmoseptine Ointment) 1 applic TOPICAL 4X/DAY [facility]; Protocol Last Admin: 11/19/19 10:19 Dose: 1 applic Documented by: Carvedilol (Coreg) 12.5 mg PO BIDCM [facility] Last Admin: 11/19/19 10:28 Dose: 12.5 mg Documented by: Dicyclomine HCl (Bentyl) 20 mg PO Q6H PRN PRN PRN Reason: abdominal discomfort Emollient Ointment (Eucerin Intensive Repair) 1 applic TOPICAL QHS [facility]; Protocol Last Admin: 11/18/19 21:21 Dose: 1 applicatio Documented by: Enoxaparin Sodium (Lovenox) 40 mg SC DAILY [facility] Last Admin: 11/19/19 10:18 Dose: 40 mg Documented by: Famotidine (Pepcid) 20 mg PO BID [facility] Last Admin: 11/19/19 10:17 Dose: 20 mg Documented by: Folic Acid (Folic Acid) 1 mg PO DAILY@0800 [facility] Last Admin: 11/19/19 08:26 Dose: 1 mg Documented by: Gabapentin (Neurontin) 300 mg PO Q8H PRN PRN PRN Reason: moderate to severe anxiety Guaifenesin (Mucinex) 1,200 mg PO BID [facility] Last Admin: 11/19/19 10:18 Dose: 1,200 mg Documented by: Hydralazine HCl (Apresoline Iv) 10 mg IV Q4H PRN PRN PRN Reason: SBP > 160 Hydroxyzine Pamoate (Vistaril Pamoate Capsule) 50 mg PO Q4H PRN PRN PRN Reason: mild anxiety Sodium Chloride () 1,000 mls @ 125 mls/hr IV .Q8H [facility] Last Infusion: 11/19/19 12:11 Dose: 125 mls/hr Documented by: Sodium Chloride () 250 mls @ 15 mls/hr IV .[id number] PRN PRN Reason: Saline Flush Sodium Chloride () 250 mls @ 15 mls/hr IV .[id number] PRN PRN Reason: Additional IVPB Infusion Last Infusion: 11/19/19 12:11 Dose: 15 mls/hr Documented by: Meropenem 1 gm/ Sodium (Chloride) 120 mls @ 33 mls/hr IV Q8 [facility] Stop: 11/24/19 14:01 Last Infusion: 11/19/19 09:49 Dose: Infused Documented by: Levothyroxine Sodium (Synthroid) 200 mcg PO DAILY@0600 [facility] Last Admin: 11/19/19 05:58 Dose: 200 mcg Documented by: Levothyroxine Sodium (Synthroid) 50 mcg PO DAILY@0600 [facility] Last Admin: 11/19/19 06:00 Dose: 50 mcg Documented by: Loperamide HCl (Imodium) 2 mg PO Q4H PRN PRN PRN Reason: LOOSE STOOLS Loratadine (Claritin) 10 mg PO DAILY [facility] Last Admin: 11/19/19 10:19 Dose: 10 mg Documented by: Magnesium Hydroxide (Milk Of Magnesia) 30 ml PO DAILY PRN PRN PRN Reason: Constipation Multivitamins (Multivitamin) 1 tablet PO DAILYCM [facility] Last Admin: 11/19/19 08:26 Dose: 1 tablet Documented by: Nutritional Formula (Lactose Free) (Ensure Enlive) 120 ml PO 4X/DAY [facility] Last Admin: 11/19/19 10:29 Dose: 120 ml Documented by: Nystatin (Mycostatin Powder) 1 applic TOPICAL TID [facility]; Protocol Last Admin: 11/19/19 06:02 Dose: 1 applicatio Documented by: Ondansetron HCl (Zofran) 4 mg IV Q8H PRN PRN PRN Reason: NAUSEA/VOMITING Last Admin: 11/18/19 17:33 Dose: 4 mg Documented by: Phenobarbital (Phenobarbital) 64.8 mg PO Q4H [facility]; Taper Stop: 11/21/19 17:59 Last Admin: 11/19/19 10:17 Dose: 64.8 mg Documented by: Potassium Phos/Sodium Phos (Neutra-Phos Packet) 1 packet PO 4X/DAY [facility] Last Admin: 11/19/19 10:18 Dose: 1 packet Documented by: Prochlorperazine Edisylate (Compazine Iv) 5 mg IV Q4H PRN PRN PRN Reason: Breakthrough Nausea/Vomiting Psyllium Hydrophilic Mucilloid (Metamucil) 1 packet PO DAILY PRN PRN PRN Reason: Constipation Senna/Docusate Sodium (Senokot-S, [place]-Colace) 2 tablet PO BID PRN PRN Reason: Constipation Sodium Chloride ([place] Nasal [place]) 4 spray NASAL Q4H [facility] Last Admin: 11/19/19 10:17 Dose: 4 spray Documented by: Sodium Chloride () 10 - 40 ml IV UD PRN PRN Reason: SALINE FLUSH Last Admin: 11/18/19 17:33 Dose: 10 ml Documented by: Thiamine HCl (Vitamin B1) 100 mg PO DAILYCM [facility] Last Admin: 11/19/19 08:27 Dose: 100 mg Documented by: Throat Lozenges (Cepacol Sore Throat Lozenge) 1 lozenge MUCOUS MEM Q2H PRN PRN PRN Reason: SORE THROAT Trazodone HCl (Desyrel) 100 mg PO QHS PRN PRN Reason: INSOMNIA Medical Necessity - Tobacco Use Smoking Status: Never smoker Tobacco Use: Non-smoker Assessment/Plan All Active Problems (Last Updated 10/20/19 @ 11:12 by Dayana Gibson) Septic shock (Acute) Aspiration pneumonia (Acute) UTI (urinary tract infection) (Acute) Atrial fibrillation with RVR (Acute) Nasal bone fractures (Acute) Rhabdomyolysis (Acute) Alcohol withdrawal seizure (Acute) Hyponatremia (Acute) Traumatic rhabdomyolysis (Acute) Anemia (Acute) Acute kidney injury (Resolved) Multiple rib fractures (Acute) Pneumonia (Resolved) Pulmonary contusion (Acute) Acute alcoholic hepatitis (Resolved) Alcohol intoxication (Resolved) Alcohol withdrawal (Resolved) History of subdural hematoma (Resolved) Hyponatremia (Resolved) Non-union of fracture (Resolved) 1. Hyponatremia due to beer potomania with sepsis syndrome. Sodium improved to 124 with iv fluids. Decrease iv fluid to 75cc/hr 2. sepsis syndrome, aspiration pna. Leukocytosis improving. blood cx no growth so far. iv antibx per primary service. 3. Acute rhabdomyolysis from fall, trauma. 4. Alcohol abuse, intoxication. 5. atrial fibrillation with rvr resolved medically, cardio following
[2019-11-19] MEDS: 0.9% Normal Saline 1,000 ML 75 ML IV (20:46)
[2019-11-19] MEDS: Atorvastatin Calcium 20 MG Tablet PO (21:17)
[2019-11-20] VITALS (46 sets, daily range): BP systolic 69–152; BP diastolic 40–102; PULSE 76–100; RESP 14–20; TEMP 36.7–38.4; O2SAT 90–100; BMI 44.0
[2019-11-20] MEDS: Sodium Chloride 0.65% 1 SPRAY SPRAY.BTL 4 SPRAY NASAL ×6 (02:21→21:38)
[2019-11-20] MEDS: Ondansetron 4 MG/2 ML Vial IV (03:47)
[2019-11-20] MEDS: 0.9% Saline Lock 10 ML Syringe IV ×3 (03:47→06:46)
[2019-11-20] MEDS: Nystatin Powder 15gm Bottle 1 APPLIC TOPICAL ×3 (05:12→21:35)
[2019-11-20] MEDS: proCHLORPERazine 10 MG/2 ML Vial 5 MG IV (05:22)
[2019-11-20] MEDS: proMETHazine 25 MG/ML Syringe 6.25 MG IV (06:46)
--- NOTE | 2019-11-20 07:42 | PN_ITS ---
Patient Problems: Active and Suspected Problems (Last Updated 10/20/19 @ 11:12 by Dayana Gibson) Septic shock (Acute) Aspiration pneumonia (Acute) UTI (urinary tract infection) (Acute) Atrial fibrillation with RVR (Acute) Nasal bone fractures (Acute) Rhabdomyolysis (Acute) Alcohol withdrawal seizure (Acute) Subjective: Patient this a.m. with rapid response called secondary to ongoing nausea and emesis through the evening however she had a large amount of emesis early in the morning prior to rapid response, found in her bed with vomitus near her mouth, hypoxic with oxygen saturations in 30 requiring immediate [id number] with ongoing encephalopathy and poor oxygenation. Patient was intubated in her room by Dr. Chavarria during the rapid response following administration of etomidate. Oxygenation did improve following and patient was transitioned to the ICU. Patient continues to have improvement of her CBC with decreased WBC and resolved left shift, sodium has increased to 126 with continued judicious hydration, final urine culture with Klebsiella pneumonia sensitive to patient Zosyn therapy for also concurrent aspiration pneumonia, blood culture x2 have remained negative with no growth, respiratory viral panel remains negative, sputum culture pending, negative antigens. Given patient unresponsive, now intubated status unable to give history but no obvious evidence of fever, chills but did tell nursing staff nausea with emesis bouts and evidence of respiratory distress. Objective: Physical Examination: General: Rapid response, patient lethargic, aspirated, hypoxic, currently being intubated, distressed. Skin: normal color, turgor, no icterus, cyanosis except very staged ecchymoses to the face and to the extremities likely secondary to serial falls, more recently noted small laceration to the front forehead with lessening of the swelling, small laceration across the bridge of the nose, nondisplaced appearing with lessened swelling, laceration to the left heel as well as laceration to the right lateral great toe dressed. HEENT: AT/NC, EOM unable to be assessed given current status, PERRLA, dry MM, emesis noted around her mouth. Lungs: Evident respiratory distress, hypoxic, being intubated currently, coarse, rhonchorous with following transition improvement, symmetric rise, remains coarse and rhonchorous. Heart: Tachycardic with regular rhythm; no gallop, rub audible. Abdomen: soft, morbidly obese, NTTP, ND, normal BS. Extremities: no cyanosis, clubbing, or edema, see skin. Neurological: Rapid response, patient lethargic, aspirated, hypoxic, currently being intubated, distressed; cognitive function not baseline intact; pupils equally reactive to light and accomodation; cranial nerves II-XII unable to be assessed, not moving extremities given sedation, strength severely global decreased. Psychiatric: affect appears distressed given respiratory compromise, intubated, flat following, no acute evidence of depressive or anxiety feelings. Vitals/I&O's: Vital Signs Temp Pulse Resp BP Pulse Ox 98.1 F 85 18 146/95 H 94 11/20/19 04:54 11/20/19 04:54 11/20/19 04:54 11/20/19 04:54 11/20/19 04:54 Oxygen Flow Rate (L/min) 2 Oxygen Delivery Method Room Air Weight: 281 lb 1.43 oz Body Mass Index (BMI) 40.2 Intake and Output for Last 24 Hours 11/18/19 11/19/19 11/20/19 23:59 23:59 23:59 Intake Total 5392.07 / 5732.07 4821.65 / 4821.65 35.85 / 35.85 Output Total 390 / 390 2 / 2 Balance 5002.07 / 5342.07 4821.65 / 4821.65 33.85 / 33.85 Microbiology Past 72 Hours 11/17/19 06:30 Blood Culture (Wb) - Anticubital Right Blood Culture - Preliminary No growth in 48 hours. 11/17/19 06:50 Blood Culture (Wb) - Left Wrist Blood Culture - Preliminary No growth in 48 hours. 11/17/19 07:00 Urine Catheter - Catheter Urine Culture - Final Klebsiella pneumoniae sp pneum 11/17/19 07:00 Urine, Clean Catch Streptococcus pneumoniae Antigen (M - Final 11/17/19 07:00 Urine, Clean Catch Legionella Antigen - Final 11/17/19 09:45 Mucosa - Nose Respiratory Panel (PCR) - Final Laboratory Results 11/19/19 07:00: Sodium 124 L, Potassium 3.6, Chloride 89 L, Carbon Dioxide 28.0, Anion Gap 7, BUN 7, Creatinine 0.42 L, Estim Creat Clear Calc 141.98, Est GFR (MDRD) Af Amer 201, Est GFR (MDRD) Non-Af 166, BUN/Creatinine Ratio 16.8, Glucose 111 H, Calcium 7.3 L, Phosphorus 1.9 L, Magnesium 2.1, Total Bilirubin 0.60, AST 57 H, ALT 43, Alkaline Phosphatase 84, Total Creatine Kinase 380 H, Total Protein 5.7 L, Albumin 2.3 L, Globulin 3.4, Albumin/Globulin Ratio 0.7 L Current Medications Acetaminophen (Tylenol) 650 mg PO Q6H PRN PRN PRN Reason: Pain Score 1-10/Temp > 100.7 F Al Hydroxide/Mg Hydroxide (Mylanta Ii) 30 ml PO Q6H PRN PRN PRN Reason: Gastric Burning Albuterol Sulfate (Ventolin Aerosols) 2.5 mg INHALATION Q2H PRN PRN PRN Reason: Dyspnea, wheezing Amiodarone HCl (Cordarone) 400 mg PO BID [facility] Last Admin: 11/19/19 21:17 Dose: 400 mg Documented by: Aspirin (Aspirin, Baby) 81 mg PO DAILY@0800 [facility] Last Admin: 11/19/19 08:26 Dose: 81 mg Documented by: Atorvastatin Calcium (Lipitor) 20 mg PO QHS [facility] Last Admin: 11/19/19 21:17 Dose: 20 mg Documented by: Bupropion HCl (Wellbutrin Tablets) 75 mg PO BID [facility] Last Admin: 11/19/19 21:16 Dose: 75 mg Documented by: Calamine/Phenol (Calmoseptine Ointment) 1 applic TOPICAL 4X/DAY [facility]; Protocol Last Admin: 11/19/19 21:19 Dose: 1 applic Documented by: [facility] Admin: 11/19/19 17:04 Dose: 12.5 mg Documented by: Dicyclomine HCl (Bentyl) 20 mg PO Q6H PRN PRN PRN Reason: abdominal discomfort Emollient Ointment (Eucerin Intensive Repair) 1 applic TOPICAL QHS [facility]; Protocol Last Admin: 11/19/19 21:18 Dose: 1 applicatio Documented by: Enoxaparin Sodium (Lovenox) 40 mg SC DAILY [facility] Last Admin: 11/19/19 10:18 Dose: 40 mg Documented by: Famotidine (Pepcid) 20 mg PO BID [facility] Last Admin: 11/19/19 21:17 Dose: 20 mg Documented by: Folic Acid (Folic Acid) 1 mg PO DAILY@0800 [facility] Last Admin: 11/19/19 08:26 Dose: 1 mg Documented by: Gabapentin (Neurontin) 300 mg PO Q8H PRN PRN PRN Reason: moderate to severe anxiety Guaifenesin (Mucinex) 1,200 mg PO BID [facility] Last Admin: 11/19/19 21:16 Dose: 1,200 mg Documented by: Hydralazine HCl (Apresoline Iv) 10 mg IV Q4H PRN PRN PRN Reason: SBP > 160 Hydroxyzine Pamoate (Vistaril Pamoate Capsule) 50 mg PO Q4H PRN PRN PRN Reason: mild anxiety Sodium Chloride () 250 mls @ 15 mls/hr IV .[id number] PRN PRN Reason: Saline Flush Sodium Chloride () 250 mls @ 15 mls/hr IV .[id number] PRN PRN Reason: Additional IVPB Infusion Last Infusion: 11/19/19 23:48 Dose: 0 mls/hr Documented by: Meropenem 1 gm/ Sodium (Chloride) 120 mls @ 33 mls/hr IV Q8 [facility] Stop: 11/24/19 14:01 Last Admin: 11/20/19 05:11 Dose: 33 mls/hr Documented by: Sodium Chloride () 1,000 mls @ 75 mls/hr IV .[id number] [facility] Last Infusion: 11/19/19 23:57 Dose: 75 mls/hr Documented by: Levothyroxine Sodium (Synthroid) 200 mcg PO DAILY@0600 [facility] Last Admin: 11/20/19 05:11 Dose: Not Given Documented by: Levothyroxine Sodium (Synthroid) 50 mcg PO DAILY@0600 [facility] Last Admin: 11/20/19 05:12 Dose: Not Given Documented by: Loperamide HCl (Imodium) 2 mg PO Q4H PRN PRN PRN Reason: LOOSE STOOLS Loratadine (Claritin) 10 mg PO DAILY [facility] Last Admin: 11/19/19 10:19 Dose: 10 mg Documented by: Magnesium Hydroxide (Milk Of Magnesia) 30 ml PO DAILY PRN PRN PRN Reason: Constipation [facility]it[facility] ([facility]amin) [facility] Last Admin: 11/19/19 08:26 Dose: 1 tablet Documented by: Nutritional Formula (Lactose Free) (Ensure Enlive) 120 ml PO 4X/DAY [facility] Last Admin: 11/19/19 21:18 Dose: Not Given Documented by: Nystatin (Mycostatin Powder) 1 applic TOPICAL TID [facility]; Protocol Last Admin: 11/20/19 05:12 Dose: 1 applicatio Documented by: Ondansetron HCl (Zofran) 4 mg IV Q8H PRN PRN PRN Reason: NAUSEA/VOMITING Last Admin: 11/20/19 03:47 Dose: 4 mg Documented by: Phenobarbital (Phenobarbital) 64.8 mg PO Q6H [facility]; Taper Stop: 11/21/19 17:59 Last Admin: 11/20/19 05:11 Dose: Not Given Documented by: Prochlorperazine Edisylate (Compazine Iv) 5 mg IV Q4H PRN PRN PRN Reason: Breakthrough Nausea/Vomiting Last Admin: 11/20/19 05:22 Dose: 5 mg Documented by: Promethazine HCl (Phenergan) 6.25 mg IV Q6H PRN PRN PRN Reason: NAUSEA/VOMITING Last Admin: 11/20/19 06:46 Dose: 6.25 mg Documented by: Psyllium Hydrophilic Mucilloid (Metamucil) 1 packet PO DAILY PRN PRN PRN Reason: Constipation Senna/Docusate Sodium (Senokot-S, [place]-Colace) 2 tablet PO BID PRN PRN Reason: Constipation Sodium Chloride ([place] Nasal [place]) 4 spray NASAL Q4H [facility] Last Admin: 11/20/19 05:12 Dose: 4 spray Documented by: Sodium Chloride () 10 - 40 ml IV UD PRN PRN Reason: SALINE FLUSH Last Admin: 11/20/19 06:46 Dose: 10 ml Documented by: Thiamine HCl (Vitamin B1) 100 mg PO DAILYCM [facility] Last Admin: 11/19/19 08:27 Dose: 100 mg Documented by: Throat Lozenges (Cepacol Sore Throat Lozenge) 1 lozenge MUCOUS MEM Q2H PRN PRN PRN Reason: SORE THROAT Trazodone HCl (Desyrel) 100 mg PO QHS PRN PRN Reason: INSOMNIA STROKE Vital Signs/Narrative: Vital Signs Temp Pulse Resp BP Pulse Ox 11/20/19 04:54 98.1 F 85 18 146/95 H 94 Medical Necessity - Tobacco Use Smoking Status: Never smoker Tobacco Use: Non-smoker Assessment/Plan All Active Problems (Last Updated 10/20/19 @ 11:12 by Dayana Gibson) Septic shock (Acute) Aspiration pneumonia (Acute) UTI (urinary tract infection) (Acute) Atrial fibrillation with RVR (Acute) Nasal bone fractures (Acute) Rhabdomyolysis (Acute) Alcohol withdrawal seizure (Acute) Hyponatremia (Acute) Traumatic rhabdomyolysis (Acute) Anemia (Acute) Acute kidney injury (Resolved) Multiple rib fractures (Acute) Pneumonia (Resolved) Pulmonary contusion (Acute) Acute alcoholic hepatitis (Resolved) Alcohol intoxication (Resolved) Alcohol withdrawal (Resolved) History of subdural hematoma (Resolved) Hyponatremia (Resolved) Non-union of fracture (Resolved) The patient is a 59 y/o F w/ PMHx: Morbid Obesity, EtOH Abuse (6-12 ounce beers daily) with frequent falls with History of DT prior, Hx SDH s/p craniotomy, Hx DUI w/ trauma, Anxiety and Depression, Chronic 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 1. Acute Hypoxic Respiratory failure secondary to Acute Septic Shock secondary to Aspiration Pneumonia and Complicated Klebsiella UTI: CXR in the ED w/ RLL infiltrate. Admission CBC w/ 19.4 with L shift. LA 8.3. Initially admitted to the ICU, consultation with Dr. Chavarria (Protein Scientist), given additional 2L bolus and continued aggressive MIVF, BP low transiently in the ED but improved, maintained on oxygen with wean as tolerated to room air, aspiration precautions, continued ATC duonebs, PRN albuterol, maintained on IV Rocephin and Flagyl and Vanc with eventual negative MRSA screen with de-escalation off vanc; however, following rocephin/azithromycin administration per ED patient with onset hives therefore administered IV benadryl/famotidine/deferred steroids as no hypoxia with transition to meropenem with planned 7 day course of treatment. Negative respiratory panel, requested sputum culture but unable to elicit, negative urine antigens, COVID negative. UCx w/ preliminary GNR >100,000 CFU-->11/19/19 Klebsiella sensitive to all agents except ampicillin and nitrofurantoin therefore Levaquin would also be appropriate. Bld cx x 2 obtained in the ED. 11/19/19 noted more apparent difficulties managing secretions with speech consultation however on 11/20/2019 early a.m. patient with rapid response with evident aspiration with hypoxia following bout of emesis with noted nausea overnight requiring 2 different antiemetic therapies with immediate intubation needs and transition back to the ICU, intubated, sedated. 2. Suspected acute EtOH Withdrawal with possible associated seizure: Maintained on seizure precautions, continue treatment of acute presentation as noted, initiated and continued on protocol with taper course of Phenobarbital, scheduled gabapentin for seizure prophylaxis, as needed Catapres, Bentyl, Vistaril, IV fluids, IV antiemetics, Tylenol as needed for pain; however, respiratory distress with intubation 11/20/2019 a.m therefore discontinued phenobarbital scheduled taper at this time, maintained on fentanyl and propofol therapy. Case management consulted for assistance for transition to next level of rehabilitation care. Mag, phos supplementation ongoing as needed. 3. New onset, Paroxsymal atrial fibrillation: EKG in ED w/ atrial fibrillation w/ RVR. Patient administered cardizem bolus and transitioned to drip in ED. Maintained on telemetry, unremarkable serial enzymes, supplemented magnesium, TSH and FT4 demonstrate hypothyroidism with increase of her home synthroid regimen, ECHO obtained w/ noted normal LV size, wall motion and systolic function, EF 75%, mildly enlarged LA, trivial MVI, inability to assess diastolic dysfunction, spectral Doppler demonstrates late peaking pattern near the LVOT with a peak velocity approaching 3 m/second consistent with hyperdynamic state. Given patient considerable fall history and risks thus will defer anticoagulation. BPs low in the ED transiently but improved w/ ICU transition, required addition of also amiodarone bolus x 2 and drip. Given ongoing issues with RVR, Cardiology consulted and following. SR conversion 11/17/19 midafternoon. 11/18/19 transition of drips to oral amiodarone and oral coreg, 11/19/2019 cardiology directed Coreg increase secondary to ongoing mild tachycardia. Cardiology did note chads Vascor 1 and agreed with deferral of any anti-coagulation given high risk. 4. Acute on Chronic Hyponatremia,Suspected secondary to Beer Potomania and Sepsis syndrome: Given #1 presentation, acute on chronic, given additional aggressive IVF bolus and continued MIVF currently, trending BMP with continued slow improvement. Mag being supplemented. TSH elevated and FT4 low with increase in her synthroid regimen. Delilah 48, UCr 94, UOsm 575. 11/20/19 Na 126, slowing improving with Nephrology recommended continued hydration, judicious, decreased to 75 cc/hr. 5. Rhabdomyolysis, acute: Admission total CK 2115, unclear downtime, unclear of possible seizure activity with history of DTs prior and alcohol level upon admission 60, aggressively hydrating, monitoring outpatient, 11/20/19 TCK 458, improved from initial admission however increased from day prior. Possibly associated with acute events of a.m. noted in #1. 6. Mechanical fall with nasal bone fracture, nondisplaced in addition to right great toe laceration and left lateral heel laceration: Given patient mechanical fall CT head, neck and facial bones were assessed in the ED with only acute finding noted nasal bone nondisplaced fracture. Maintained on continue nasal saline rinses with spray, ice and elevation of the head to assist with edema. Currently no necessity for operative intervention. Swelling improving with no obvious cosmetic deformity. Wound RN consulted for lacerations with continued dressing changes and local wound care. 7. Hyperglycemia consistent with prediabetes: Admission BS elevated, no history of diabetes, admission hemoglobin 202, hemoglobin A1c 6.0%, nutrition consulted, encouraged lifestyle/diet alterations to avoid further elevation of her A1c, patient intubated as noted #1, holding on oral intake. 8. Hypokalemia: Admission potassium 3.0, oral supplementation given, magnesium levels supplemented, 11/19/19 K 3.5. 9. History of mechanical fall with SDH: status post craniotomy, resolved but very high fall risk given ongoing alcohol abuse. 10. History of CVA: Reported history of prior stroke, given intent for sobriety following lengthy fall risk discussion, places on asa 81 mg daily, continued coreg recently added with d/c prior atenolol, added lower dose statin. 11. Anxiety and depression: We will continue patient home bupropion regimen. 12. Morbid Obesity: Weight loss and lifestyle changes encouraged, nutrition consulted. 13. Hypertension: Off cardizem and amiodarone ip, now transitioned to coreg 14. GERD: We will continue famotidine. 15. Hypothyroidism: TSH mildly elevated and T4 low, increased synthroid to 250 mcg daily and recommend repeat outpatient thyroid function testing per PCP. 16. DVT prophylaxis: SCDs, Lovenox. 17. CODE status: Full Code. Inpatient E&M: 46286 Subs Hosp L3
[2019-11-20 07:46] LABS: Bedside Glucose 152 mg/dL (70-110)
--- NOTE | 2019-11-20 07:46 | PCM.PN.INT ---
Subjective: The patient was seen and examined at the bedside this morning. Events from the last 24 hours have been reviewed. Early this morning a rapid response team was called in the PCU as the patient developed nausea and vomiting. She was subsequently found by nursing staff with a large amount of emesis around her mouth and in her bed. The patient then became significantly hypoxemic with oxygen saturations in the 30s. The patient received oxygenation via [id number], but still remained encephalopathic with agonal respirations. Therefore, the decision was made to emergently intubate her at the bedside. Intubation Indication: Respiratory Failure, Encephalopathy Consent was obtained from: Done Emergently The patient was placed in the appropriate sniffing position. Preoxygenated sedation via BVM was provided for a minimum of 3 minutes. The patient had continuous cardiac as well as pulse oximetry monitoring during the procedure. Procedure sedation was provided by the administration of 20 mg of Etomidate. Video laryngoscopy was then performed using a number 4 MAC blade, which revealed a grade 1 view. An 8.0 mm endotracheal tube was visualized advancing between the cords to the level of 22 cm at the lip. The stylette was then removed and discarded. Tube placement was confirmed by fogging in the tube along with equal and bilateral breath sounds. Colorimetric change was visualized on the CO2 meter. The cuff was then inflated and the tube secured using a commercially available device. A good pulse oximetry waveform was seen on the monitor throughout the procedure. A portable chest x-ray has been ordered to confirm appropriate placement. The patient tolerated the procedure well. Objective: The patient's most recent lab work, culture data and imaging studies have all been personally reviewed. Surface echocardiogram revealed normal LV size and function with an ejection fraction of 75%. Coronavirus PCR was negative. Respiratory viral panel was negative. Strep and urine Legionella antigens were negative. Urine culture was positive for Klebsiella pneumoniae. General: - - The patient is now intubated and mechanically ventilated. HEENT: Atraumatic, Normocephalic Oral: Dry Mucosa, - - Endotracheal and OG tubes currently in place. Neck: Supple, No Nodes, Trachea Midline Lungs: Diminished, Rhonchi, Tachypneic Cardiovascular: Regular rate, Regular Rhythm Abdomen: Bowel Sounds Present, Soft, Obese Extremities: No clubbing, No cyanosis, Edema Skin: - - No significant change from previous Musculoskeletal: No Muscle Wasting Lymphatic: No Cervical, Supraclavicular, or Inguinal Adenopathy Neurological: - - No focal neurological deficits. Currently sedated on the ventilator. Vital Signs Temp Pulse Resp BP Pulse Ox 98.1 F 85 18 146/95 H 94 11/20/19 04:54 11/20/19 04:54 11/20/19 04:54 11/20/19 04:54 11/20/19 04:54 Oxygen Flow Rate (L/min) 2 Oxygen Delivery Method Room Air Weight: 281 lb 1.43 oz Body Mass Index (BMI) 40.2 Intake and Output for Last 24 Hours 11/18/19 11/19/19 11/20/19 23:59 23:59 23:59 Intake Total 5392.07 / 5732.07 4821.65 / 4821.65 35.85 / 35.85 Output Total 390 / 390 2 / 2 Balance 5002.07 / 5342.07 4821.65 / 4821.65 33.85 / 33.85 Labs (Last 48 Hours) 11/18/19 11/19/19 11/19/19 10:55 07:00 07:00 WBC 8.8 RBC 4.05 L Hgb 11.1 L Hct 33.9 L MCV 83.7 MCH 27.4 MCHC 32.7 RDW Std Deviation 46.1 H RDW Coeff of Cecil 15.0 H Plt Count 133 L MPV 10.0 Immature Gran % (Auto) 0.800 Neut % (Auto) 84.9 H Lymph % (Auto) 7.3 L [place] % (Auto) 6.0 Eos % (Auto) 0.9 Baso % (Auto) 0.1 Absolute Neuts (auto) 7.5 Absolute Lymphs (auto) 0.64 L Nucleated RBC % 0 Sodium 122 L 124 L Potassium 3.7 3.6 Chloride 87 L 89 L Carbon Dioxide 29.0 28.0 Anion Gap 6 7 BUN 6 L 7 Creatinine 0.56 0.42 L Estim Creat Clear Calc 106.49 141.98 Est GFR (MDRD) Af Amer 144 201 Est GFR (MDRD) Non-Af 119 166 BUN/Creatinine Ratio 10.8 16.8 Glucose 141 H 111 H Calcium 7.1 L 7.3 L Phosphorus 1.9 L Magnesium 2.1 Total Bilirubin 0.80 0.60 AST 75 H 57 H ALT 47 43 Alkaline Phosphatase 89 84 Total Creatine Kinase 380 H Total Protein 6.0 L 5.7 L Albumin 2.4 L 2.3 L Globulin 3.6 3.4 Albumin/Globulin Ratio 0.7 L 0.7 L TSH 5.57 H Free T4 0.49 L POC Glucose 11/20/19 07:24 WBC RBC Hgb Hct MCV MCH MCHC RDW Std Deviation RDW Coeff of Cecil Plt Count MPV Immature Gran % (Auto) Neut % (Auto) Lymph % (Auto) Shelby % (Auto) Eos % (Auto) Baso % (Auto) Absolute Neuts (auto) Absolute Lymphs (auto) Nucleated RBC % Sodium Potassium Chloride Carbon Dioxide Anion Gap BUN Creatinine Estim Creat Clear Calc Est GFR (MDRD) Af Amer Est GFR (MDRD) Non-Af BUN/Creatinine Ratio Glucose Calcium Phosphorus Magnesium Total Bilirubin AST ALT Alkaline Phosphatase Total Creatine Kinase Total Protein Albumin Globulin Albumin/Globulin Ratio TSH Free T4 POC Glucose Pending Microbiology 11/17/19 06:30 Blood Culture (Wb) - Anticubital Right Blood Culture - Preliminary No growth in 48 hours. 11/17/19 06:50 Blood Culture (Wb) - Left Wrist Blood Culture - Preliminary No growth in 48 hours. 11/17/19 07:00 Urine Catheter - Catheter Urine Culture - Final Klebsiella pneumoniae sp pneum Clinical Impression(s) from Imaging Studies Brain CT 11/17/19 05:48 IMPRESSION: There is frontal scalp swelling. There are old craniotomy defects. There is NO skull fracture. is encephalomalacia in the LEFT frontal lobe suggesting old injury. There is no intracranial hemorrhage. There are no findings of an acute ischemic infarction. Electronically Signed: Tyson Berry MD at 7:00 EDT , Service support , Chest X-Ray 11/17/19 05:48 IMPRESSION: Faint RIGHT lower lobe infiltrate.. Electronically Signed: Tyson Berry MD at 6:57 EDT , Service support , Cervical Spine CT 11/17/19 05:50 IMPRESSION: Multilevel degenerative changes, as described above. There are NO fractures or malalignments. Electronically Signed: Tyson Berry MD at 7:05 EDT , Service support , Facial/Sinus 11/17/19 05:50 IMPRESSION: There are fractures of the nasal bone. Electronically Signed: Tyson Berry MD at 7:07 EDT , Service support , Chest X-Ray 11/18/19 05:55 IMPRESSION: Lungs are expanded. There are faint bilateral basilar infiltrates. There is no demonstrated pleural abnormality. Normal size heart. Electronically Signed: Tyson Berry MD at 5:24 EDT , Service support , Medical Necessity - Tobacco Use Smoking Status: Never smoker Tobacco Use: Non-smoker Assessment/Plan All Active Problems (Last Updated 10/20/19 @ 11:12 by Dayana Gibson) Septic shock (Acute) Aspiration pneumonia (Acute) UTI (urinary tract infection) (Acute) Atrial fibrillation with RVR (Acute) Nasal bone fractures (Acute) Rhabdomyolysis (Acute) Alcohol withdrawal seizure (Acute) Hyponatremia (Acute) Traumatic rhabdomyolysis (Acute) Anemia (Acute) Acute kidney injury (Resolved) Multiple rib fractures (Acute) Pneumonia (Resolved) Pulmonary contusion (Acute) Acute alcoholic hepatitis (Resolved) Alcohol intoxication (Resolved) Alcohol withdrawal (Resolved) History of subdural hematoma (Resolved) Hyponatremia (Resolved) Non-union of fracture (Resolved) RECOMMENDATIONS: 1. Continue antimicrobials, pending repeat infectious work-up. 2. Obtain arterial blood gas in 1 hour. 3. Hold on starting tube feeds for now. Plan to obtain KUB. 4. Continue bronchodilator therapy. 5. Start propofol and fentanyl for sedation. 6. Continue appropriate ICU prophylaxis. IMPRESSIONS: 1. Acute hypoxemic respiratory failure Appears to be precipitated by large emesis with witnessed aspiration, leading to respiratory decompensation. The patient did have to be emergently intubated prior to transfer to the ICU. She has stabilized at this time with invasive mechanical ventilatory support. We will continue broad-spectrum antimicrobial therapy. Plan to obtain repeat sputum culture. Obtain arterial blood gas in 1 hour. Hold off on starting tube feeds. Obtain KUB to evaluate for ileus. 2. Septic shock The patient was initially admitted to the hospital with septic shock and was treated for a right lower lobe pneumonia and Klebsiella urinary tract infection. She improved clinically and was hemodynamically stable. However, on the morning of November 19 the patient had to be emergently intubated after a witnessed aspiration event. She subsequently went on to develop hypotension and new onset fevers. Eventually, low-dose Levophed had to be started to maintain hemodynamic stability. Plan to wean accordingly to maintain a mean arterial pressure at or above 65 mmHg. Repeat infectious work-up is currently pending. 3. Hyponatremia/hypochloremia/hypophosphatemia Likely secondary to beer potomania and intravascular volume depletion. The patient is currently being volume resuscitated, with slow improvement in sodium level noted. Plan to continue gentle IV fluid hydration. Continue aggressive electrolyte repletion. 4. New onset atrial fibrillation with RVR/history of PFO Resolved. Continue rate/rhythm control strategy per cardiology recommendations. The patient does have a history of a PFO, but her history of recurrent falls would likely preclude her from consideration for systemic anticoagulation. 5. Longstanding history of alcoholism Continue CIWA protocol and monitor for alcohol withdrawal symptoms. Continue thiamine and folate. 6. Depression/hypothyroidism/obesity Complicates care, management, recovery and prognosis. Continue home medications as indicated. Physical therapy to work with the patient. TIME: 40 minutes of critical care time, inclusive of procedures, was spent addressing the patient's acute hypoxemic respiratory failure, septic shock, encephalopathy, hyponatremia, atrial fibrillation, alcoholism, review of all data and collaboration with the care team. ([id number]) [id number]: [id number] Critical care first hour
--- NOTE | 2019-11-20 07:52 | NURSING ---
0720 walked into patient room patient had vomit all over suctioned agonal respirations noted assessed vs o2 sat 39% nonrebreather applied rapid response called. Was intubated and taken to ICU by 07. Called Father and gave him update and that ICU will be calling him within 1 hour for update.
[2019-11-20] MEDS: Propofol 10MG/Ml 1,000 MG/100 ML Bottle 7.7 MG CONT INF (08:00)
--- NOTE | 2019-11-20 08:20 | RAD_ITS ---
STUDY: X-RAY CHEST REASON FOR EXAM: Female, 59 years old. Status post intubation, septic shock. TECHNIQUE: Single AP portable view of the chest. COMPARISON: 11/18/2019 FINDINGS: New endotracheal tube with its tip approximately 5 cm proximal to the cristóbal. Nasogastric tube with its tip below the level of diaphragm but is not entirely included on this exam. Mild elevation of the right hemidiaphragm. Atelectatic changes in both lung bases worse on the left side. There is no demonstrated pleural abnormality. Normal size heart. Normal mediastinum and vicki. Normal visualized pulmonary arteries. There is atherosclerotic calcification of the aortic arch with tortuosity. Metallic plates and screws in the visualized right humerus. Nonunited fracture of the outer end of the left clavicle and old healed fracture. There is no demonstrated abnormality of the visualized soft tissue structures of the upper abdomen. RAD/Chest 1 View (Portable) IMPRESSION: Status post intubation and nasogastric tube placement. Atelectatic changes in both lung bases. Electronically Signed: Aryan Negron MD at 8:46 EDT Tel , Service support ,
--- NOTE | 2019-11-20 08:20 | RAD_ITS ---
STUDY: X-RAY - ABDOMEN/PELVIS REASON FOR EXAM: Female, 59 years old. Status post intubation and orogastric tube placement. TECHNIQUE: AP supine and decubitus views of the abdomen and pelvis. COMPARISON: 11/20/2019, 8:09 AM FINDINGS: The tip of the orogastric tube is in the region of the stomach. Endotracheal tube in stable position. Nonspecific gaseous bowel loops. The lower abdomen is not included on this exam. Normal soft tissue structures. There are diffuse degenerative changes of the visualized lumbar spine. RAD/Abdomen Single View (Portable) IMPRESSION: Orogastric tube tube with its tip in the region of the gastric fundus. Electronically Signed: Aryan Negron MD at 8:48 EDT Tel , Service support ,
[2019-11-20 08:51] LABS: Base Excess -1 mmol/L (-2 to +2); Bicarbonate 24.6 mmol/L (22-26); Blood Gas Specimen Type ART; FI02 40; Mode AC; O2 Delivery Device Adult Vent; PO2 64 mmHG (75-100); SITE R Brach; SO2 91 % (95-99); Total Carbon Dioxide 26 mmol/L; Vt 450; pH 7.35 (7.35-7.45)
[2019-11-20] MEDS: 0.9% Normal Saline 1,000 ML 75 ML IV (09:16)
--- NOTE | 2019-11-20 09:33 | PCM.NTREPORT ---
Nutrition Therapy Report - History Current diet / nutrition support order:: NPO - Anthropometric Measurements Height:: 5 ft 7 in Weight:: 127.5 kg Body Mass Index (BMI):: 44.0 - Relevant Labs Relevant Labs:: WBC 15.8 K/mm3 (4.4-11.0) H 11/18/19 04:45 RBC 4.05 M/mm3 (4.2-5.4) L 11/19/19 07:00 Hgb 11.1 g/dL (12.0-15.0) L 11/19/19 07:00 Hct 33.9 % (37-47) L 11/19/19 07:00 MCV 79.4 fL (81-99) L 11/17/19 05:59 RDW Std Deviation 46.1 fl (35.1-43.9) H 11/19/19 07:00 RDW Coeff of Cecil 15.0 % (11.6-14.6) H 11/19/19 07:00 Plt Count 133 K/mm3 (150-450) L 11/19/19 07:00 Neut % (Auto) 84.9 % (47-70) H 11/19/19 07:00 Lymph % (Auto) 7.3 % (19-41) L 11/19/19 07:00 Absolute Neuts (auto) 14.2 X10^3/uL (2.0-7.7) H 11/18/19 04:45 Absolute Lymphs (auto) 0.64 X10^3/uL (0.83-4.51) L 11/19/19 07:00 Sodium 124 mmol/L (136-145) L 11/19/19 07:00 Potassium 3.0 mmol/L (3.5-5.1) L 11/17/19 05:59 Potassium 3.2 mmol/L (3.5-5.1) L 11/17/19 05:59 Chloride 89 mmol/L (98-107) L 11/19/19 07:00 Anion Gap 21 (5-15) H 11/17/19 05:59 BUN 6 mg/dL (7-18) L 11/18/19 10:55 Creatinine 0.42 mg/dL (0.55-1.02) L 11/19/19 07:00 BUN/Creatinine Ratio 8.9 RATIO (10-20) L 11/18/19 04:45 Glucose 111 mg/dL (74-106) H 11/19/19 07:00 Hemoglobin A1c 6.0 % (3.8-5.6) H 11/17/19 05:59 Lactic Acid 8.3 mmol/L (0.4-1.9) H* 11/17/19 06:50 Calcium 7.3 mg/dL (8.5-10.1) L 11/19/19 07:00 Phosphorus 1.9 mg/dL (2.5-4.9) L 11/19/19 07:00 Magnesium 1.5 mg/dL (1.6-2.6) L 11/17/19 05:59 Total Bilirubin 1.50 mg/dL (0.20-1.00) H 11/17/19 05:59 AST 57 U/L (15-37) H 11/19/19 07:00 ALT 65 U/L (13-56) H 11/17/19 05:59 Alkaline Phosphatase 119 U/L (45-117) H 11/17/19 05:59 Ammonia < 10.0 umol/L (11-32) L 11/17/19 09:55 Total Creatine Kinase 380 U/L (26-192) H 11/19/19 07:00 Total Protein 5.7 g/dL (6.4-8.2) L 11/19/19 07:00 Albumin 2.3 g/dL (3.2-5.0) L 11/19/19 07:00 Albumin/Globulin Ratio 0.7 RATIO (0.9-2.4) L 11/19/19 07:00 Lipase 30 U/L (73-393) L 11/17/19 05:59 TSH 5.57 uIU/mL (0.358-3.74) H 11/18/19 10:55 Free T4 0.49 ng/dL (0.76-1.46) L 11/18/19 10:55 - Assessment Food / Nutrition-Related History:: Rapid response team called on pt this a.m. as pt developed nausea and vomiting; pt found by nursing staff with a large amount of emesis around her mouth and in her bed. Pt became hypoxemic- received O2 via [id number], but still remained encephalopathic with agonal respirations. Pt emergently intubated- OG in place. Per DANAY Feliciano no plans for TF intitation this day. Wt increase 3 kg since previous review; total wt gain 11 kg since admin- no edema noted per EMR, suspect pt wt gain fluid related as pt w/ Intake>Output, receiving IV and oral fluids during admin. Will monitor wt for trends. - Nutrition Diagnosis Problem / Etiology / Signs & Symptoms (PES):: Inadequate oral intake r/t respiratory failure resulting in emergent intubation AEB NPO status w/ OG in place. Evidence of Malnutrition Exists:: No - Nutrition Intervention Nutrition Prescription:: 4780-2244 calories, 85-95 grams protein. - Food / Nutrient Delivery Interventions Summary of nutrition intervention:: Rec TF intiation as indicated. See recommendations below. Nutrition support ordered as / adjusted to:: Recommend Vital AF 1.2 via OG at goal rate of 70 mL/hr with 75 mL H2O flush every 4 hours to provide 2016 calories, 126 grams protein, 1813 mL free water per day. Would initiate TF at 20 mL/hr and increase by 15 mL every 8-12 hours as pt tolerates until goal rate is achieved. Nutrition education provided?: No - MNT Monitoring Further MNT monitoring and evaluation required?: Yes MNT Follow-up in:: 3-5 days - Please call RDN as needed at ext. [phone]
[2019-11-20] MEDS: Chlorhexidine 15 ML PO ×2 (09:38→21:36)
[2019-11-20] MEDS: Menthol/Lanolin/Calamine/Znox 113 GM Tube 1 APPLIC TOPICAL ×4 (09:39→21:35)
[2019-11-20] MEDS: Enoxaparin 40 MG/0.4 ML Syringe SC (09:39)
--- NOTE | 2019-11-20 09:54 | NURSING ---
Patient arrived in ICU at 0745 from PCU report received at bedside
[2019-11-20 10:02] LABS: Absolute Lymphocyte Count 0.39 X10^3/uL (0.83-4.51); Absolute Neutrophil Count 8.2 X10^3/uL (2.0-7.7); Basophil# 0.02 X10^3/uL; Basophil% 0.2 % (0-1); Eosinophil# 0.07 X10^3/uL; Eosinophils% 0.8 % (0-5); Hematocrit 34.4 % (37-47); Hemoglobin 11.1 g/dL (12.0-15.0); Lymphocyte # 0.39 X10^3/ul (4.0); Lymphocyte % 4.2 % (19-41); Mean Corp Hgb Conc 32.3 g/dL (32-36); Mean Corpuscular Hgb 27.7 pg (27.0-32.0); Mean Corpuscular Volume 85.8 fL (81-99); Mean Platelet Vol. 9.7 fl (6.2-12.0); Monocyte# 0.51 X10^3/uL; Monocyte% 5.6 % (0-10); NRBC Flagged by Analyzer 0 % (0-5); Neutrophil # 8.15 X10^3/uL (2.7-7.7); Neutrophil % 88.8 % (47-70); POSITIVE DIFFERENTIAL YES; Platelet Count 136 K/mm3 (150-450); RBC Distribution Width CV 15.3 % (11.6-14.6); RBC Distribution Width SD 47.8 fl (35.1-43.9); Red Blood Count 4.01 M/mm3 (4.2-5.4); White Blood Count 9.2 K/mm3 (4.4-11.0)
[2019-11-20 10:05] LABS: Differential Indicated SCAN CRITERIA MET
[2019-11-20 10:18] LABS: CPK Total, Creatine Kinase 458 U/L (26-192)
[2019-11-20 10:28] LABS: Differential Comment SCANNED
[2019-11-20 10:32] LABS: ALB/GLOB Ratio 0.6 RATIO (0.9-2.4); AST(SGOT) 62 U/L (15-37); Alanine Aminotransfer ALT/SGPT 40 U/L (13-56); Albumin, Serum 2.2 g/dL (3.2-5.0); Alkaline Phosphatase 86 U/L (45-117); Anion Gap 7 (5-15); BUN 7 mg/dL (7-18); BUN/Creat Ratio 13.3 RATIO (10-20); Calcium,Total 7.4 mg/dL (8.5-10.1); Chloride 93 mmol/L (98-107); Creatinine, Serum 0.53 mg/dL (0.55-1.02); EST Glomerular Filtration Rate 126 mL/min (>60); Est Glom Filt Rate - Afr Amer 153 mL/min (>60); Estimated Creatinine Clearance 112.51 ml/min; Globulin 3.5 g/dL (2.2-4.2); Glucose 131 mg/dL (74-106); Potassium 3.5 mmol/L (3.5-5.1); Protein, Total 5.7 g/dL (6.4-8.2); Sodium Level 126 mmol/L (136-145)
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
[2019-11-20] MEDS: Aspirin 81 MG TAB.CHEW GT (12:12)
[2019-11-20] MEDS: Thiamine Hydrochloride 100 MG Tablet GT (12:13)
[2019-11-20] MEDS: Famotidine 20 MG Tablet GT ×2 (12:14→21:38)
[2019-11-20] MEDS: Folic Acid 1 MG Tablet GT (12:15)
[2019-11-20] MEDS: Amiodarone 200 MG Tablet 400 MG GT (12:15)
[2019-11-20] MEDS: buPROPion 75 MG Tablet GT ×2 (12:16→21:39)
[2019-11-20] MEDS: Loratadine 10 MG Tablet GT (12:16)
[2019-11-20] MEDS: Acetaminophen 650 MG/20 ML UDC GT ×2 (13:45→22:49)
--- NOTE | 2019-11-20 14:36 | PCM.PN.REN ---
Patient Problems: Active and Suspected Problems (Last Updated 10/20/19 @ 11:12 by Dayana Gibson) Septic shock (Acute) Aspiration pneumonia (Acute) UTI (urinary tract infection) (Acute) Atrial fibrillation with RVR (Acute) Nasal bone fractures (Acute) Rhabdomyolysis (Acute) Alcohol withdrawal seizure (Acute) Subjective: vomit with aspiration s/p intubation this morning, sedate, in ICU. BP low with sedation - Physical Exam Vitals/I&O's: Vital Signs Temp Pulse Resp BP Pulse Ox 101.1 F H 89 14 86/50 L 100 11/20/19 14:00 11/20/19 14:00 11/20/19 14:00 11/20/19 14:00 11/20/19 14:00 Oxygen Flow Rate (L/min) 2 Oxygen Delivery Method Mechanical Ventilator Weight: 127.5 kg Body Mass Index (BMI) 44.0 Intake and Output for Last 24 Hours 11/18/19 11/19/19 11/20/19 23:59 23:59 23:59 Intake Total 5392.07 / 5732.07 4821.65 / 4821.65 1073.51 / 1073.51 Output Total 390 / 390 772 / 772 Balance 5002.07 / 5342.07 4821.65 / 4821.65 301.51 / 301.51 General: - - sedate Lungs: Rhonchi, - - intubated on vent Cardiovascular: Regular rate Abdomen: Soft, Non Tender, Obese Extremities: No edema Psych/Mental Status: - - sedate Microbiology Past 72 Hours 11/20/19 11:00 Sputum, Induced/Lukens Gram Stain - Final 11/17/19 06:30 Blood Culture (Wb) - Anticubital Right Blood Culture - Preliminary No growth in 48 hours. 11/17/19 06:50 Blood Culture (Wb) - Left Wrist Blood Culture - Preliminary No growth in 48 hours. 11/17/19 07:00 Urine Catheter - Catheter Urine Culture - Final Klebsiella pneumoniae sp pneum 11/17/19 07:00 Urine, Clean Catch Streptococcus pneumoniae Antigen (M - Final 11/17/19 07:00 Urine, Clean Catch Legionella Antigen - Final 11/17/19 09:45 Mucosa - Nose Respiratory Panel (PCR) - Final Laboratory Results 11/20/19 07:24: POC Glucose 152 H 11/20/19 08:43: Specimen Type ART, Sample Site R Brach, pH 7.35, Bicarbonate Actual 24.6, Total CO2 26, Base Excess -1, O2 Saturation 91 L, O2 % 40, ABG pCO2 45.0, ABG pO2 64 L, Respiration Rate 14.0000, O2 Delivery Device Adult Vent, Vent Mode AC, Tidal Volume 450 11/20/19 09:03: Sodium 126 L, Potassium 3.5, Chloride 93 L, Carbon Dioxide 26.0, Anion Gap 7, BUN 7, Creatinine 0.53 L, Estim Creat Clear Calc 112.51, Est GFR (MDRD) Af Amer 153, Est GFR (MDRD) Non-Af 126, BUN/Creatinine Ratio 13.3, Glucose 131 H, Calcium 7.4 L, Total Bilirubin 0.60, AST 62 H, ALT 40, Alkaline Phosphatase 86, Total Protein 5.7 L, Albumin 2.2 L, Globulin 3.5, Albumin/Globulin Ratio 0.6 L 11/20/19 09:03: Total Creatine Kinase 458 H 11/20/19 09:35: WBC 9.2, RBC 4.01 L, Hgb 11.1 L, Hct 34.4 L, MCV 85.8, MCH 27.7, MCHC 32.3, RDW Std Deviation 47.8 H, RDW Coeff of Cecil 15.3 H, Plt Count 136 L, MPV 9.7, Immature Gran % (Auto) 0.400, Neut % (Auto) 88.8 H, Lymph % (Auto) 4.2 L, [place] % (Auto) 5.6, Eos % (Auto) 0.8, Baso % (Auto) 0.2, Absolute Neuts (auto) 8.2 H, Absolute Lymphs (auto) 0.39 L, Nucleated RBC % 0, Differential Comment SCANNED Current Medications Acetaminophen (Tylenol) 650 mg RECTAL Q4H PRN PRN PRN Reason: Pain Score 1-10/Temp > 100.7 F Acetaminophen (Tylenol Liquid) 650 mg GT Q6H PRN PRN PRN Reason: Pain Score 1-10/10/FEVER Last Admin: 11/20/19 13:45 Dose: 650 mg Documented by: Al Hydroxide/Mg Hydroxide (Mylanta Ii) 30 ml GT Q6H PRN PRN PRN Reason: Gastric Burning Albuterol Sulfate (Ventolin Aerosols) 2.5 mg INHALATION Q2H PRN PRN PRN Reason: Dyspnea, wheezing Amiodarone HCl (Cordarone) 400 mg GT BID [facility] Last Admin: 11/20/19 12:15 Dose: 400 mg Documented by: Aspirin (Aspirin, Baby) 81 mg GT DAILY [facility] Last Admin: 11/20/19 12:12 Dose: 81 mg Documented by: Atorvastatin Calcium (Lipitor) 20 mg GT QHS [facility] Bupropion HCl (Wellbutrin Tablets) 75 mg GT BID [facility] Last Admin: 11/20/19 12:16 Dose: 75 mg Documented by: Calamine/Phenol (Calmoseptine Ointment) 1 applic TOPICAL 4X/DAY [facility]; Protocol Last Admin: 11/20/19 13:46 Dose: 1 applic Documented by: Carvedilol (Coreg) 25 mg GT BID [facility] Last Admin: 11/20/19 11:56 Dose: Not Given Documented by: Chlorhexidine Gluconate () 15 ml PO BID [facility] Last Admin: 11/20/19 09:38 Dose: 15 ml Documented by: Dicyclomine HCl (Bentyl) 20 mg GT Q6H PRN PRN PRN Reason: abdominal discomfort Emollient Ointment (Eucerin Intensive Repair) 1 applic TOPICAL QHS [facility]; Protocol Last Admin: 11/19/19 21:18 Dose: 1 applicatio Documented by: Enoxaparin Sodium (Lovenox) 40 mg SC DAILY [facility] Last Admin: 11/20/19 09:39 Dose: 40 mg Documented by: Famotidine (Pepcid) 20 mg GT BID [facility] Last Admin: 11/20/19 12:14 Dose: 20 mg Documented by: Folic Acid (Folic Acid) 1 mg GT DAILY [facility] Last Admin: 11/20/19 12:15 Dose: 1 mg Documented by: Gabapentin (Neurontin) 300 mg GT Q8H PRN PRN PRN Reason: moderate to severe anxiety Guaifenesin (Robitussin) 10 ml GT Q6H [facility] Hydralazine HCl (Apresoline Iv) 10 mg IV Q4H PRN PRN PRN Reason: SBP > 160 Hydroxyzine Pamoate (Vistaril Pamoate Capsule) 50 mg GT Q4H PRN PRN PRN Reason: mild anxiety Sodium Chloride () 250 mls @ 15 mls/hr IV .[id number] PRN PRN Reason: Saline Flush Sodium Chloride () 250 mls @ 15 mls/hr IV .[id number] PRN PRN Reason: Additional IVPB Infusion Last Infusion: 11/19/19 23:48 Dose: 0 mls/hr Documented by: Meropenem 1 gm/ Sodium (Chloride) 120 mls @ 33 mls/hr IV Q8 [facility] Stop: 11/24/19 14:01 Last Admin: 11/20/19 13:46 Dose: 33 mls/hr Documented by: Sodium Chloride () 1,000 mls @ 75 mls/hr IV .[id number] [facility] Last Admin: 11/20/19 09:16 Dose: 75 mls/hr Documented by: Propofol (Diprivan) 1,000 mg in 100 mls @ 7.65 mls/hr CONT INF .Q12H [facility]; Protocol Last Titration: 11/20/19 11:30 Dose: 15 mcg/kg/min, 11.5 mls/hr Documented by: Fentanyl Citrate 1,000 mcg/ (Sodium Chloride) 100 mls @ 5 mls/hr CONT INF .Q20H [facility]; Protocol Last Titration: 11/20/19 11:30 Dose: 100 mcg/hr, 10 mls/hr Documented by: Levothyroxine Sodium (Synthroid) 50 mcg GT DAILY@0600 [facility] Levothyroxine Sodium (Synthroid) 200 mcg GT DAILY@0600 [facility] Lisinopril (Zestril) 10 mg GT DAILY [facility] Last Admin: 11/20/19 11:56 Dose: Not Given Documented by: Loperamide HCl (Imodium) 2 mg GT Q4H PRN PRN PRN Reason: LOOSE STOOLS Loratadine (Claritin) 10 mg GT DAILY [facility] Last Admin: 11/20/19 12:16 Dose: 10 mg Documented by: Magnesium Hydroxide (Milk Of Magnesia) 30 ml GT DAILY PRN PRN PRN Reason: Constipation Nystatin (Mycostatin Powder) 1 applic TOPICAL TID [facility]; Protocol Last Admin: 11/20/19 13:46 Dose: 1 applicatio Documented by: Ondansetron HCl (Zofran) 4 mg IV Q8H PRN PRN PRN Reason: NAUSEA/VOMITING Last Admin: 11/20/19 03:47 Dose: 4 mg Documented by: Prochlorperazine Edisylate (Compazine Iv) 5 mg IV Q4H PRN PRN PRN Reason: Breakthrough Nausea/Vomiting Last Admin: 11/20/19 05:22 Dose: 5 mg Documented by: Promethazine HCl (Phenergan) 6.25 mg IV Q6H PRN PRN PRN Reason: NAUSEA/VOMITING Last Admin: 11/20/19 06:46 Dose: 6.25 mg Documented by: Senna/Docusate Sodium (Senokot-S, [place]-Colace) 2 tablet GT BID PRN PRN PRN Reason: Constipation Sodium Chloride (Berwind Nasal [place]) 4 spray NASAL Q4H [facility] Last Admin: 11/20/19 13:45 Dose: 4 spray Documented by: Sodium Chloride () 10 - 40 ml IV UD PRN PRN Reason: SALINE FLUSH Last Admin: 11/20/19 06:46 Dose: 10 ml Documented by: Sodium Chloride (Sodium Chl 15 Ml) 5 ml INHALATION Q5M PRN PRN Reason: Suctioning Thiamine HCl (Vitamin B1) 100 mg GT DAILY [facility] Last Admin: 11/20/19 12:13 Dose: 100 mg Documented by: Throat Lozenges (Cepacol Sore Throat Lozenge) 1 lozenge MUCOUS MEM Q2H PRN PRN PRN Reason: SORE THROAT Trazodone HCl (Desyrel) 100 mg GT QHS PRN PRN PRN Reason: INSOMNIA Medical Necessity - Tobacco Use Smoking Status: Never smoker Tobacco Use: Non-smoker Assessment/Plan All Active Problems (Last Updated 10/20/19 @ 11:12 by Dayana Gibson) Septic shock (Acute) Aspiration pneumonia (Acute) UTI (urinary tract infection) (Acute) Atrial fibrillation with RVR (Acute) Nasal bone fractures (Acute) Rhabdomyolysis (Acute) Alcohol withdrawal seizure (Acute) Hyponatremia (Acute) Traumatic rhabdomyolysis (Acute) Anemia (Acute) Acute kidney injury (Resolved) Multiple rib fractures (Acute) Pneumonia (Resolved) Pulmonary contusion (Acute) Acute alcoholic hepatitis (Resolved) Alcohol intoxication (Resolved) Alcohol withdrawal (Resolved) History of subdural hematoma (Resolved) Hyponatremia (Resolved) Non-union of fracture (Resolved) 1. Hyponatremia due to beer potomania, sepsis syndrome, sedate, on vent, NPO. Sodium improved to 126 with iv fluids. Increase iv fluid to 125cc/hr 2. sepsis syndrome, aspiration pna s/p intubation back in ICU. L 3. Acute rhabdomyolysis from fall, trauma. 4. Alcohol abuse, intoxication. 5. atrial fibrillation with rvr resolved medically, cardio following dW nursing staff, hospitalist
[2019-11-20] MEDS: Lactated Ringers 1,000 ML 999 ML IV (14:40)
[2019-11-20] MEDS: 0.9% Normal Saline 1,000 ML 125 ML IV ×2 (16:00→21:52)
[2019-11-20] MEDS: TITRATION PARAMETER CHANGE 1 EACH IV (21:35)
[2019-11-20] MEDS: Atorvastatin Calcium 20 MG Tablet GT (21:37)
[2019-11-20] MEDS: guaiFENesin 10 ML UDC (200MG/10ML) GT (21:38)
--- NOTE | 2019-11-20 23:14 | NURSING ---
Zain Fu, pt's father, contacted regarding status update and obtained telephone consent for central line placement;explained procedure and possible risks, stated whatever she needs.
--- NOTE | 2019-11-20 23:45 | RAD_ITS ---
STUDY: X-RAY CHEST REASON FOR EXAM: Female, 59 years old. LINE PLACEMENT TECHNIQUE: Single AP portable view of the chest. Current exam was done at 2351 hours. COMPARISON: 11/20/2019, done at 0809 hours. FINDINGS: Endotracheal tube tip is 5 cm above the cristóbal. Right internal jugular central venous catheter tip overlies the superior vena cava. Nasogastric tube tip and sidehole are in the body the stomach. There is no demonstrated pneumothorax There are patchy pulmonary infiltrates bilaterally, which are worsened from previous study. There is a small right pleural Normal size heart. Normal mediastinum and vicki. Normal visualized pulmonary arteries. Normal visualized aortic arch and descending thoracic aorta. There are no visualized acute osseous abnormalities. There is an old healed left clavicular fracture. There are postsurgical changes in the right humerus. There is no demonstrated abnormality of the visualized soft tissue structures of the upper abdomen. RAD/CXR for Line Placement IMPRESSION: Tubes are in adequate position. New or worsened patchy pulmonary infiltrates bilaterally. New finding of a small right pleural effusion. Electronically Signed: Winston Post MD at 0:55 EDT , Service support ,
--- NOTE | 2019-11-20 23:50 | NURSING ---
2315: Dr. Cherry on the floor to place central line. informed consent obtained via telephone from patient's father Zain Fu 2330: Patient placed in supine position. This nurse assisted Dr. Cherry with central line placement 2340: central line placed in right IJ by Dr. Cherry. Radiology notified of need for chest xray to verify placement. Patient returned to semi-fowlers position 2345: chest xray obtained by radiology
[2019-11-21] VITALS (66 sets, daily range): BP systolic 81–124; BP diastolic 49–81; PULSE 73–95; RESP 10–21; TEMP 38–39; O2SAT 87–100
[2019-11-21] MEDS: Sodium Chloride 0.65% 1 SPRAY SPRAY.BTL 4 SPRAY NASAL ×6 (02:20→21:15)
[2019-11-21] MEDS: guaiFENesin 10 ML UDC (200MG/10ML) GT ×4 (04:30→21:13)
[2019-11-21] MEDS: Acetaminophen 650 MG/20 ML UDC GT ×3 (04:53→20:00)
[2019-11-21] MEDS: Nystatin Powder 15gm Bottle 1 APPLIC TOPICAL ×3 (04:54→21:15)
[2019-11-21] MEDS: 0.9% Saline Lock 10 ML Syringe IV ×2 (04:54→06:53)
[2019-11-21 05:01] LABS: Absolute Lymphocyte Count 0.62 X10^3/uL (0.83-4.51); Absolute Neutrophil Count 13.5 X10^3/uL (2.0-7.7); Basophil# 0.05 X10^3/uL; Basophil% 0.3 % (0-1); Eosinophil# 0.35 X10^3/uL; Eosinophils% 2.2 % (0-5); Hematocrit 37.3 % (37-47); Hemoglobin 11.8 g/dL (12.0-15.0); Lymphocyte # 0.62 X10^3/ul (4.0); Lymphocyte % 3.9 % (19-41); Mean Corp Hgb Conc 31.6 g/dL (32-36); Mean Corpuscular Hgb 27.4 pg (27.0-32.0); Mean Corpuscular Volume 86.7 fL (81-99); Mean Platelet Vol. 9.7 fl (6.2-12.0); Monocyte# 1.17 X10^3/uL; Monocyte% 7.4 % (0-10); NRBC Flagged by Analyzer 0 % (0-5); Neutrophil # 13.45 X10^3/uL (2.7-7.7); Neutrophil % 85.4 % (47-70); Platelet Count 170 K/mm3 (150-450); RBC Distribution Width CV 15.9 % (11.6-14.6); RBC Distribution Width SD 49.5 fl (35.1-43.9); White Blood Count 15.8 K/mm3 (4.4-11.0)
[2019-11-21] MEDS: Levothyroxine 100 MCG Tablet 200 MCG GT (05:01)
[2019-11-21] MEDS: Levothyroxine 50 MCG Tablet GT (05:01)
[2019-11-21] MEDS: TITRATION PARAMETER CHANGE 1 EACH IV (05:13)
[2019-11-21 05:18] LABS: ALB/GLOB Ratio 0.6 RATIO (0.9-2.4); AST(SGOT) 36 U/L (15-37); Alanine Aminotransfer ALT/SGPT 36 U/L (13-56); Albumin, Serum 2.3 g/dL (3.2-5.0); Alkaline Phosphatase 91 U/L (45-117); Anion Gap 7 (5-15); BUN 8 mg/dL (7-18); BUN/Creat Ratio 12.4 RATIO (10-20); CPK Total, Creatine Kinase 147 U/L (26-192); Calcium,Total 7.7 mg/dL (8.5-10.1); Chloride 95 mmol/L (98-107); Creatinine, Serum 0.64 mg/dL (0.55-1.02); EST Glomerular Filtration Rate 100 mL/min (>60); Est Glom Filt Rate - Afr Amer 121 mL/min (>60); Estimated Creatinine Clearance 93.18 ml/min; Globulin 3.6 g/dL (2.2-4.2); Glucose 103 mg/dL (74-106); Potassium 3.5 mmol/L (3.5-5.1); Protein, Total 5.9 g/dL (6.4-8.2); Sodium Level 128 mmol/L (136-145)
[2019-11-21] MEDS: 0.9% Normal Saline 1,000 ML 125 ML IV ×3 (05:53→20:00)
--- NOTE | 2019-11-21 05:58 | PCM.PN.INT ---
Subjective: The patient was seen and examined at the bedside this morning. Events from the last 24 hours have been reviewed. The patient is currently febrile with a T-max overnight of 101.6 ?F. The patient became hemodynamically unstable last evening, despite fluid boluses. Therefore, a central venous catheter was placed and the patient was started on low-dose Levophed. She is currently requiring Levophed support at 5 mcg/min. Spontaneous breathing trial was not completed this morning. The patient continues to have thick secretions from her endotracheal tube. The patient was transitioned to Precedex yesterday, over concerns that her propofol may have been contributing to her hypotension. Objective: The patient's most recent lab work, culture data and imaging studies have all been personally reviewed. Surface echocardiogram from November 16 revealed normal LV size and function with an ejection fraction of 75%. Urine culture dated November 16 was positive for Klebsiella pneumonia. Repeat infectious work-up including blood and sputum cultures are currently pending. General: - - Remains intubated, sedated and mechanically ventilated. HEENT: PERRLA, Normocephalic Oral: Moist Mucosa, - - Endotracheal and OG tubes in place Neck: Supple, No Nodes, Trachea Midline, - - Right IJ triple-lumen catheter in place Lungs: No rhonchi, No wheeze, No rales, Diminished, - - Thick du secretions suctioned from endotracheal tube. Cardiovascular: Regular rate, Regular Rhythm Abdomen: Bowel Sounds Present, Soft, Non Tender, Obese Extremities: No clubbing, No cyanosis, Edema Skin: - - No significant change from previous Musculoskeletal: No Muscle Wasting Lymphatic: No Cervical, Supraclavicular, or Inguinal Adenopathy Neurological: - - No focal neurological deficits. Currently sedated on the ventilator with a RASS of -1. Vital Signs Temp Pulse Resp BP Pulse Ox 101.6 F H 73 17 100/74 94 11/21/19 05:45 11/21/19 05:45 11/21/19 05:45 11/21/19 05:45 11/21/19 05:45 Oxygen Flow Rate (L/min) 2 Oxygen Delivery Method Mechanical Ventilator Weight: 283 lb 4.704 oz Body Mass Index (BMI) 44.0 Intake and Output for Last 24 Hours 11/19/19 11/20/19 11/21/19 23:59 23:59 23:59 Intake Total 4821.65 / 4821.65 4009.18 / 4533.48 1873.56 / 1873.56 Output Total 892 / 922 120 / 120 Balance 4821.65 / 4821.65 3117.18 / 3611.48 1753.56 / 1753.56 Labs (Last 48 Hours) 11/19/19 11/19/19 11/20/19 07:00 07:00 00:15 WBC 8.8 RBC 4.05 L Hgb 11.1 L Hct 33.9 L MCV 83.7 MCH 27.4 MCHC 32.7 RDW Std Deviation 46.1 H RDW Coeff of Cecil 15.0 H Plt Count 133 L MPV 10.0 Immature Gran % (Auto) 0.800 Neut % (Auto) 84.9 H Lymph % (Auto) 7.3 L [place] % (Auto) 6.0 Eos % (Auto) 0.9 Baso % (Auto) 0.1 Absolute Neuts (auto) 7.5 Absolute Lymphs (auto) 0.64 L Nucleated RBC % 0 Differential Comment Specimen Type Sample Site pH Bicarbonate Actual Total CO2 Base Excess O2 Saturation O2 % ABG pCO2 ABG pO2 Respiration Rate O2 Delivery Device Vent Mode Tidal Volume Sodium 124 L Potassium 3.6 Chloride 89 L Carbon Dioxide 28.0 Anion Gap 7 BUN 7 Creatinine 0.42 L Estim Creat Clear Calc 141.98 Est GFR (MDRD) Af Amer 201 Est GFR (MDRD) Non-Af 166 BUN/Creatinine Ratio 16.8 Glucose 111 H Calcium 7.3 L Phosphorus 1.9 L Magnesium 2.1 Total Bilirubin 0.60 AST 57 H ALT 43 Alkaline Phosphatase 84 Total Creatine Kinase 380 H Total Protein 5.7 L Albumin 2.3 L Globulin 3.4 Albumin/Globulin Ratio 0.7 L Hep Bs Antigen Cancelled Hep Bs Antibody Cancelled Hepatitis C Antibody Cancelled HIV 1&2 Antibody Cancelled POC Glucose 11/20/19 11/20/19 11/20/19 07:24 08:43 09:03 WBC RBC Hgb Hct MCV MCH MCHC RDW Std Deviation RDW Coeff of Cecil Plt Count MPV Immature Gran % (Auto) Neut % (Auto) Lymph % (Auto) [place] % (Auto) Eos % (Auto) Baso % (Auto) Absolute Neuts (auto) Absolute Lymphs (auto) Nucleated RBC % Differential Comment Specimen Type ART Sample Site R Brach pH 7.35 Bicarbonate Actual 24.6 Total CO2 26 Base Excess -1 O2 Saturation 91 L O2 % 40 ABG pCO2 45.0 ABG pO2 64 L Respiration Rate 14.0000 O2 Delivery Device Adult Vent Vent Mode AC Tidal Volume 450 Sodium 126 L Potassium 3.5 Chloride 93 L Carbon Dioxide 26.0 Anion Gap 7 BUN 7 Creatinine 0.53 L Estim Creat Clear Calc 112.51 Est GFR (MDRD) Af Amer 153 Est GFR (MDRD) Non-Af 126 BUN/Creatinine Ratio 13.3 Glucose 131 H Calcium 7.4 L Phosphorus Magnesium Total Bilirubin 0.60 AST 62 H ALT 40 Alkaline Phosphatase 86 Total Creatine Kinase Total Protein 5.7 L Albumin 2.2 L Globulin 3.5 Albumin/Globulin Ratio 0.6 L Hep Bs Antigen Hep Bs Antibody Hepatitis C Antibody HIV 1&2 Antibody POC Glucose 152 H 11/20/19 11/20/19 11/21/19 09:03 09:35 04:50 WBC 9.2 15.8 H RBC 4.01 L 4.30 Hgb 11.1 L 11.8 L Hct 34.4 L 37.3 MCV 85.8 86.7 MCH 27.7 27.4 MCHC 32.3 31.6 L RDW Std Deviation 47.8 H 49.5 H RDW Coeff of Cecil 15.3 H 15.9 H Plt Count 136 L 170 MPV 9.7 9.7 Immature Gran % (Auto) 0.400 0.800 Neut % (Auto) 88.8 H 85.4 H Lymph % (Auto) 4.2 L 3.9 L [place] % (Auto) 5.6 7.4 Eos % (Auto) 0.8 2.2 Baso % (Auto) 0.2 0.3 Absolute Neuts (auto) 8.2 H 13.5 H Absolute Lymphs (auto) 0.39 L 0.62 L Nucleated RBC % 0 0 Differential Comment SCANNED Specimen Type Sample Site pH Bicarbonate Actual Total CO2 Base Excess O2 Saturation O2 % ABG pCO2 ABG pO2 Respiration Rate O2 Delivery Device Vent Mode Tidal Volume Sodium Potassium Chloride Carbon Dioxide Anion Gap BUN Creatinine Estim Creat Clear Calc Est GFR (MDRD) Af Amer Est GFR (MDRD) Non-Af BUN/Creatinine Ratio Glucose Calcium Phosphorus Magnesium Total Bilirubin AST ALT Alkaline Phosphatase Total Creatine Kinase 458 H Total Protein Albumin Globulin Albumin/Globulin Ratio Hep Bs Antigen Hep Bs Antibody Hepatitis C Antibody HIV 1&2 Antibody POC Glucose 11/21/19 04:50 WBC RBC Hgb Hct MCV MCH MCHC RDW Std Deviation RDW Coeff of [place] Plt Count MPV Immature Gran % (Auto) Neut % (Auto) Lymph % (Auto) [place] % (Auto) Eos % (Auto) Baso % (Auto) Absolute Neuts (auto) Absolute Lymphs (auto) Nucleated RBC % Differential Comment Specimen Type Sample Site pH Bicarbonate Actual Total CO2 Base Excess O2 Saturation O2 % ABG pCO2 ABG pO2 Respiration Rate O2 Delivery Device Vent Mode Tidal Volume Sodium 128 L Potassium 3.5 Chloride 95 L Carbon Dioxide 26.0 Anion Gap 7 BUN 8 Creatinine 0.64 Estim Creat Clear Calc 93.18 Est GFR (MDRD) Af Amer 121 Est GFR (MDRD) Non-Af 100 BUN/Creatinine Ratio 12.4 Glucose 103 Calcium 7.7 L Phosphorus Magnesium Total Bilirubin 0.50 AST 36 ALT 36 Alkaline Phosphatase 91 Total Creatine Kinase 147 Total Protein 5.9 L Albumin 2.3 L Globulin 3.6 Albumin/Globulin Ratio 0.6 L Hep Bs Antigen Hep Bs Antibody Hepatitis C Antibody HIV 1&2 Antibody POC Glucose Microbiology 11/20/19 11:00 Sputum, Induced/Lukens Gram Stain - Final 11/17/19 06:30 Blood Culture (Wb) - Anticubital Right Blood Culture - Preliminary No growth in 48 hours. 11/17/19 06:50 Blood Culture (Wb) - Left Wrist Blood Culture - Preliminary No growth in 48 hours. 11/17/19 07:00 Urine Catheter - Catheter Urine Culture - Final Klebsiella pneumoniae sp pneum Clinical Impression(s) from Imaging Studies Brain CT 11/17/19 05:48 IMPRESSION: There is frontal scalp swelling. There are old craniotomy defects. There is NO skull fracture. is encephalomalacia in the LEFT frontal lobe suggesting old injury. There is no intracranial hemorrhage. There are no findings of an acute ischemic infarction. Electronically Signed: Tyson Berry MD at 7:00 EDT , Service support , Chest X-Ray 11/17/19 05:48 IMPRESSION: Faint RIGHT lower lobe infiltrate.. Electronically Signed: Tyson Berry MD at 6:57 EDT , Service support , Cervical Spine CT 11/17/19 05:50 IMPRESSION: Multilevel degenerative changes, as described above. There are NO fractures or malalignments. Electronically Signed: Tyson Berry MD at 7:05 EDT , Service support , Facial/Sinus 11/17/19 05:50 IMPRESSION: There are fractures of the nasal bone. Electronically Signed: Tyson Berry MD at 7:07 EDT , Service support , Chest X-Ray 11/18/19 05:55 IMPRESSION: Lungs are expanded. There are faint bilateral basilar infiltrates. There is no demonstrated pleural abnormality. Normal size heart. Electronically Signed: Tyson Berry MD at 5:24 EDT , Service support , Chest X-Ray 11/20/19 08:20 IMPRESSION: Status post intubation and nasogastric tube placement. Atelectatic changes in both lung bases. Electronically Signed: Aryan Negron MD at 8:46 EDT Tel , Service support , KUB X-Ray 11/20/19 08:20 IMPRESSION: Orogastric tube tube with its tip in the region of the gastric fundus. Electronically Signed: Aryan Negron MD at 8:48 EDT Tel , Service support , Chest X-Ray 11/20/19 23:45 IMPRESSION: Tubes are in adequate position. New or worsened patchy pulmonary infiltrates bilaterally. New finding of a small right pleural effusion. Electronically Signed: Winston Post MD at 0:55 EDT , Service support , Medical Necessity - Tobacco Use Smoking Status: Never smoker Tobacco Use: Non-smoker Assessment/Plan All Active Problems (Last Updated 10/20/19 @ 11:12 by Dayana Gibson) Septic shock (Acute) Aspiration pneumonia (Acute) UTI (urinary tract infection) (Acute) Atrial fibrillation with RVR (Acute) Nasal bone fractures (Acute) Rhabdomyolysis (Acute) Alcohol withdrawal seizure (Acute) Hyponatremia (Acute) Traumatic rhabdomyolysis (Acute) Anemia (Acute) Acute kidney injury (Resolved) Multiple rib fractures (Acute) Pneumonia (Resolved) Pulmonary contusion (Acute) Acute alcoholic hepatitis (Resolved) Alcohol intoxication (Resolved) Alcohol withdrawal (Resolved) History of subdural hematoma (Resolved) Hyponatremia (Resolved) Non-union of fracture (Resolved) RECOMMENDATIONS: 1. Continue antimicrobials pending repeat infectious work-up. 2. Wean Levophed to maintain a mean arterial pressure at or above 65 mmHg. 3. Continue Precedex and fentanyl for sedation. Goal to maintain a RASS of -1 to 1. 4. Attempt tube feeds today. 5. Plan for paired spontaneous awakening and breathing trials beginning tomorrow. 6. Continue to wean FiO2 as tolerated. 7. Continue appropriate ICU prophylaxis. IMPRESSIONS: 1. Acute hypoxemic respiratory failure Appears to be precipitated by large emesis with witnessed aspiration, leading to respiratory decompensation. The patient did have to be emergently intubated prior to transfer to the ICU. She has stabilized at this time with invasive mechanical ventilatory support. We will continue broad-spectrum antimicrobial therapy. Plan to obtain repeat culture data. Okay to attempt to start tube feeds today. 2. Septic shock The patient was initially admitted to the hospital with septic shock and was treated for a right lower lobe pneumonia and Klebsiella urinary tract infection. She improved clinically and was hemodynamically stable. However, on the morning of November 19 the patient had to be emergently intubated after a witnessed aspiration event. She subsequently went on to develop hypotension and new onset fevers. Eventually, low-dose Levophed had to be started to maintain hemodynamic stability. Plan to wean accordingly to maintain a mean arterial pressure at or above 65 mmHg. Repeat infectious work-up is currently pending. 3. Hyponatremia/hypochloremia/hypophosphatemia Likely secondary to beer potomania and intravascular volume depletion. The patient is currently being volume resuscitated, with slow improvement in sodium level noted. Plan to continue gentle IV fluid hydration. Continue aggressive electrolyte repletion. 4. New onset atrial fibrillation with RVR/history of PFO Resolved. Continue rate/rhythm control strategy per cardiology recommendations. The patient does have a history of a PFO, but her history of recurrent falls would likely preclude her from consideration for systemic anticoagulation. 5. Longstanding history of alcoholism Continue CIWA protocol and monitor for alcohol withdrawal symptoms. Continue thiamine and folate. 6. Depression/hypothyroidism/obesity Complicates care, management, recovery and prognosis. Continue home medications as indicated. Physical therapy to work with the patient. TIME: 35 minutes of critical care time, inclusive of procedures, was spent addressing the patient's acute hypoxemic respiratory failure, septic shock, encephalopathy, hyponatremia, atrial fibrillation, alcoholism, review of all data and collaboration with the care team. ([id number]) [id number] Critical care first hour
[2019-11-21] MEDS: Dexmedetomidine 1,000 mcg in 0.9% NS 240 mL 22.5 MCG CONT INF ×2 (06:36→18:08)
--- NOTE | 2019-11-21 07:43 | PN_ITS ---
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 CXR in the ED w/ RLL infiltrate. Admission CBC w/ 19.4 with L shift. LA 8.3. Initially admitted to the ICU, consultation with Dr. Chavarria (Research Professor), given additional 2L bolus and continued aggressive MIVF, BP low transiently in the ED but improved, maintained on oxygen with wean as tolerated to room air, aspiration precautions, continued ATC duonebs, PRN albuterol, maintained on IV Rocephin and Flagyl and Vanc with eventual negative MRSA screen with de-escalation off vanc; however, following rocephin/azithromycin administration per ED patient with onset hives therefore administered IV benadryl/famotidine/deferred steroids as no hypoxia with transition to meropenem. Negative respiratory panel, requested sputum culture but unable to elicit, negative urine antigens, COVID negative. UCx Klebsiella sensitive to meropenem. 11/19/19 noted more apparent difficulties managing secretions with speech consultation however on 11/20/2019 early a.m. patient with rapid response with evident aspiration with hypoxia following bout of emesis with noted nausea overnight requiring 2 different antiemetic therapies with immediate intubation needs and transition back to the ICU, intubated, sedated. Bld cx x 2 obtained in the ED without growth but given recent recurrent aspiration event requiring intubation and onset fevers, repeat Bld Cx 11/21/19 AM. Required pressor therapy initiation 11/20/19-11/21/19. EKG in ED w/ atrial fibrillation w/ RVR. Patient administered cardizem bolus and transitioned to drip in ED. Maintained on telemetry, unremarkable serial enzymes, supplemented magnesium, TSH and FT4 demonstrate hypothyroidism with increase of her home synthroid regimen, ECHO obtained w/ noted normal LV size, wall motion and systolic function, EF 75%, mildly enlarged LA, trivial MVI, inability to assess diastolic dysfunction, spectral Doppler demonstrates late peaking pattern near the LVOT with a peak velocity approaching 3 m/second consistent with hyperdynamic state. Given patient considerable fall history and risks thus will defer anticoagulation. BPs low in the ED transiently but improved w/ ICU transition, required addition of also amiodarone bolus x 2 and drip. Given ongoing issues with RVR, Cardiology consulted and following. SR conversion 11/17/19 midafternoon. 11/18/19 transition of drips to oral amiodarone and oral coreg, 11/19/2019 cardiology directed Coreg increase secondary to ongoing mild tachycardia but given hypotension requiring pressors hold parameters ongoing . Acute on Chronic Hyponatremia,Suspected secondary to Beer Potomania and Sepsis syndrome w/ Delilah 48, UCr 94, UOsm 575. Na levels slowly improving with Nephrology recommended continued hydration, judicious, decreased to 75 cc/hr but given acute events with septic shock IVF increased 11/21/19. 11/21/19 Na 128. Maintained on seizure precautions, initiated and continued on protocol with taper course of Phenobarbital, scheduled gabapentin for seizure prophylaxis, as needed Catapres, Bentyl, Vistaril, IV fluids, IV antiemetics, Tylenol as needed for pain; however, respiratory distress with intubation 11/20/2019 a.m therefore discontinued phenobarbital scheduled taper, maintained on fentanyl and propofol therapy-->precedex given hypotension 11/20/19-11/21/19 as noted requiring pressors. Case management consulted for assistance for transition to next level of rehabilitation care. Patient day prior with aspiration event with hypoxia with emergent intubation and transition to the ICU, following patient became hypotensive requiring pressor initiation and placement of central line with recurrent fevers suspected likely secondary to recent aspiration with ongoing thick secretions from the ET tube. Patient was transitioned to the day prior to Precedex secondary to concerns for propofol contributing to the hypotension. Patient remains on imipenem for aspiration pneumonia. Patient with ongoing elevated temperatures with repeat blood culture x2 obtained this a.m. Currently blood culture x2 initially from 11/17/2019 unremarkable, negative urine antigens, urine culture revealed then 100,000 with Klebsiella pneumonia susceptible also to imipenem. Sputum from 11/20/2019 with presumptive Yu with no organisms otherwise. Patient FiO2 improving. Patient without any overt evidence of chills, recurrent nausea, emesis, abdominal pain, chest pain but again sedate but does awaken examination. Objective: Physical Examination: General: Patient does awaken to some stimuli but not alert, unable to answer orientation questions, not following commands with sedation, seated upright in the ICU, intubated, sedated. Skin: normal color, turgor, no icterus, cyanosis except very staged ecchymoses to the face and to the extremities likely secondary to serial falls, more recently noted small laceration to the front forehead with lessening of the sw elling, small laceration across the bridge of the nose, nondisplaced appearing with lessened swelling, laceration to the left heel as well as laceration to the right lateral great toe dressed.. HEENT: AT aside from recent injuries noted, see skin/NC, EOM difficult to perform secondary sedation but is opening eyes, PERRLA, increased secretions noted, ET tube and OG tube in place, right IJ in place. Lungs: Intubated, symmetric rise, no distress currently, thick secretions, diminished throughout, greater bases, no current wheezing, scattered rhonchi. Heart: Regular rate and rhythm; no gallop, rub audible. Abdomen: soft, morbidly obese, NTTP, mildly distended, mildly hyperactive bowel sounds. Extremities: no cyanosis, clubbing, or edema. Neurological: Patient does awaken to some stimuli but not alert, unable to answer orientation questions, not following commands with sedation, seated upright in the ICU, intubated, sedated; cognitive function not baseline intact; pupils equally reactive to light and accomodation; cranial nerves difficult to assess given current sedated, intubated status, moving extremities to stimuli, strength severely globally decreased secondary to acute presentation, comorbidities and recent events. Psychiatric: affect appears flat, sedated, no acute evidence of depressive or anxiety feelings. Vitals/I&O's: Vital Signs Temp Pulse Resp BP Pulse Ox 101.8 F H 74 16 101/63 95 09/27/20 07:00 11/21/19 07:14 11/21/19 07:00 11/21/19 07:00 11/21/19 07:00 Oxygen Flow Rate (L/min) 2 Oxygen Delivery Method Mechanical Ventilator Weight: 283 lb 4.704 oz Body Mass Index (BMI) 44.0 Intake and Output for Last 24 Hours 11/19/19 11/20/19 11/21/19 23:59 23:59 23:59 Intake Total 4821.65 / 4821.65 4009.18 / 4533.48 1958.05 / 1957.05 Output Total 892 / 922 150 / 150 Balance 4821.65 / 4821.65 3117.18 / 3611.48 1808.05 / 180.05 Microbiology Past 72 Hours 11/20/19 11:00 Sputum, Induced/Lukens Gram Stain - Final 11/17/19 06:30 Blood Culture (Wb) - Anticubital Right Blood Culture - Preliminary No growth in 48 hours. 11/17/19 06:50 Blood Culture (Wb) - Left Wrist Blood Culture - Preliminary No growth in 48 hours. 11/17/19 07:00 Urine Catheter - Catheter Urine Culture - Final Klebsiella pneumoniae sp pneum Laboratory Results 11/20/19 00:15: Hep Bs Antigen Cancelled, Hep Bs Antibody Cancelled, Hepatitis C Antibody Cancelled, HIV 1&2 Antibody Cancelled 11/20/19 07:24: POC Glucose 152 H 11/20/19 08:43: Specimen Type ART, Sample Site R Brach, pH 7.35, Bicarbonate Actual 24.6, Total CO2 26, Base Excess -1, O2 Saturation 91 L, O2 % 40, ABG pCO2 45.0, ABG pO2 64 L, Respiration Rate 14.0000, O2 Delivery Device Adult Vent, Vent Mode AC, Tidal Volume 450 11/20/19 09:03: Sodium 126 L, Potassium 3.5, Chloride 93 L, Carbon Dioxide 26.0, Anion Gap 7, BUN 7, Creatinine 0.53 L, Estim Creat Clear Calc 112.51, Est GFR (MDRD) Af Amer 153, Est GFR (MDRD) Non-Af 126, BUN/Creatinine Ratio 13.3, Glucose 131 H, Calcium 7.4 L, Total Bilirubin 0.60, AST 62 H, ALT 40, Alkaline Phosphatase 86, Total Protein 5.7 L, Albumin 2.2 L, Globulin 3.5, Albumin/Evelyne bulin Ratio 0.6 L 11/20/19 09:03: Total Creatine Kinase 458 H 11/20/19 09:35: WBC 9.2, RBC 4.01 L, Hgb 11.1 L, Hct 34.4 L, MCV 85.8, MCH 27.7, MCHC 32.3, RDW Std Deviation 47.8 H, RDW Coeff of Cecil 15.3 H, Plt Count 136 L, MPV 9.7, Immature Gran % (Auto) 0.400, Neut % (Auto) 88.8 H, Lymph % (Auto) 4.2 L, [place] % (Auto) 5.6, Eos % (Auto) 0.8, Baso % (Auto) 0.2, Absolute Neuts (auto) 8.2 H, Absolute Lymphs (auto) 0.39 L, Nucleated RBC % 0, Differential Comment SCANNED 11/21/19 04:50: WBC 15.8 H, RBC 4.30, Hgb 11.8 L, Hct 37.3, MCV 86.7, MCH 27.4, MCHC 31.6 L, RDW Std Deviation 49.5 H, RDW Coeff of Cecil 15.9 H, Plt Count 170, MPV 9.7, Immature Gran % (Auto) 0.800, Neut % (Auto) 85.4 H, Lymph % (Auto) 3.9 L, [place] % (Auto) 7.4, Eos % (Auto) 2.2, Baso % (Auto) 0.3, Absolute Neuts (auto) 13.5 H, Absolute Lymphs (auto) 0.62 L, Nucleated RBC % 0 11/21/19 04:50: Sodium 128 L, Potassium 3.5, Chloride 95 L, Carbon Dioxide 26.0, Anion Gap 7, BUN 8, Creatinine 0.64, Estim Creat Clear Calc 93.18, Est GFR (MDRD) Af Amer 121, Est GFR (MDRD) Non-Af 100, BUN/Creatinine Ratio 12.4, Glucose 103, Calcium 7.7 L, Total Bilirubin 0.50, AST 36, ALT 36, Alkaline Phosphatase 91, Total Creatine Kinase 147, Total Protein 5.9 L, Albumin 2.3 L, Globulin 3.6, Albumin/Globulin Ratio 0.6 L Current Medications Acetaminophen (Tylenol) 650 mg RECTAL Q4H PRN PRN PRN Reason: Pain Score 1-10/Temp > 100.7 F Acetaminophen (Tylenol Liquid) 650 mg GT Q6H PRN PRN PRN Reason: Pain Score 1-10/10/FEVER Last Admin: 11/21/19 04:53 Dose: 650 mg Documented by: Al Hydroxide/Mg Hydroxide (Mylanta Ii) 30 ml GT Q6H PRN PRN PRN Reason: Gastric Burning Albuterol Sulfate (Ventolin Aerosols) 2.5 mg INHALATION Q2H PRN PRN PRN Reason: Dyspnea, wheezing Amiodarone HCl (Cordarone) 400 mg GT BID [facility] [place] Last Admin: 11/20/19 22:31 Dose: Not Given Documented by: Aspirin (Aspirin, Baby) 81 mg GT DAILY [facility] [place] Last Admin: 11/20/19 12:12 Dose: 81 mg Documented by: Atorvastatin Calcium (Lipitor) 20 mg GT QHS [facility] Last Admin: 11/20/19 21:37 Dose: 20 mg Documented by: Bupropion HCl (Wellbutrin Tablets) 75 mg GT BID [facility] [place] Last Admin: 11/20/19 21:39 Dose: 75 mg Documented by: Calamine/Phenol (Calmoseptine Ointment) 1 applic TOPICAL 4X/DAY [facility] [place]; Protocol Last Admin: 11/20/19 21:35 Dose: 1 applic Documented by: Carvedilol (Coreg) 25 mg GT BID [facility] Last Admin: 11/20/19 21:37 Dose: Not Given Documented by: Chlorhexidine Gluconate () 15 ml PO BID [facility] Last Admin: 11/20/19 21:36 Dose: 15 ml Documented by: Dicyclomine HCl (Bentyl) 20 mg GT Q6H PRN PRN PRN Reason: abdominal discomfort Emollient Ointment (Eucerin Intensive Repair) 1 applic TOPICAL QHS [facility] [place]; Protocol Last Admin: 11/20/19 21:39 Dose: 1 applicatio Documented by: Enoxaparin Sodium (Lovenox) 40 mg SC DAILY [facility] [place] Last Admin: 11/20/19 09:39 Dose: 40 mg Documented by: Famotidine (Pepcid) 20 mg GT BID [facility] [place] Last Admin: 11/20/19 21:38 Dose: 20 mg Documented by: Folic Acid (Folic Acid) 1 mg GT DAILY [facility] [place] Last Admin: 11/20/19 12:15 Dose: 1 mg Documented by: Gabapentin (Neurontin) 300 mg GT Q8H PRN PRN PRN Reason: moderate to severe anxiety Guaifenesin (Robitussin) 10 ml GT Q6H [facility] Last Admin: 11/21/19 04:30 Dose: 10 ml Documented by: Hydralazine HCl (Apresoline Iv) 10 mg IV Q4H PRN PRN PRN Reason: SBP > 160 Hydroxyzine Pamoate (Vistaril Pamoate Capsule) 50 mg GT Q4H PRN PRN PRN Reason: mild anxiety Sodium Chloride () 250 mls @ 15 mls/hr IV .[id number] PRN PRN Reason: Saline Flush Sodium Chloride () 250 mls @ 15 mls/hr IV .[id number] PRN PRN Reason: Additional IVPB Infusion Last Infusion: 11/21/19 04:59 Dose: 0 mls/hr Documented by: Meropenem 1 gm/ Sodium (Chloride) 120 mls @ 33 mls/hr IV Q8 [facility] [place] Stop: 11/24/19 14:01 Last Admin: 11/21/19 04:59 Dose: 33 mls/hr Documented by: Fentanyl Citrate 1,000 mcg/ (Sodium Chloride) 100 mls @ 5 mls/hr CONT INF .Q20H [facility]; Protocol Last Titration: 11/21/19 07:00 Dose: 150 mcg/hr, 15 mls/hr Documented by: Sodium Chloride () 1,000 mls @ 125 mls/hr IV .Q8H [facility] [place] Last Admin: 11/21/19 05:53 Dose: 125 mls/hr Documented by: Norepinephrine Bitartrate 8 mg (/ Sodium Chloride) 250 mls @ 9.375 mls/hr CONT INF .[id number] [facility] [place]; Protocol Last Titration: 11/21/19 07:00 Dose: 2.67 mcg/min, 5 mls/hr Documented by: Dexmedetomidine HCl 1,000 mcg/ (Sodium Chloride) 250 mls @ 16.063 mls/hr CONT INF .[id number] [facility] [place]; Protocol Levothyroxine Sodium (Synthroid) 50 mcg GT DAILY@0600 [facility] [place] Last Admin: 11/21/19 05:01 Dose: 50 mcg Documented by: Levothyroxine Sodium (Synthroid) 200 mcg GT DAILY@0600 [facility] [place] Last Admin: 11/21/19 05:01 Dose: 200 mcg Documented by: Lisinopril (Zestril) 10 mg GT DAILY [facility] [place] Last Admin: 11/20/19 11:56 Dose: Not Given Documented by: Loperamide HCl (Imodium) 2 mg GT Q4H PRN PRN PRN Reason: LOOSE STOOLS Loratadine (Claritin) 10 mg GT DAILY [facility] [place] Last Admin: 11/20/19 12:16 Dose: 10 mg Documented by: Magnesium Hydroxide (Milk Of Magnesia) 30 ml GT DAILY PRN PRN PRN Reason: Constipation Nystatin (Mycostatin Powder) 1 applic TOPICAL TID [facility] [place]; Protocol Last Admin: 11/21/19 04:54 Dose: 1 applicatio Documented by: Ondansetron HCl (Zofran) 4 mg IV Q8H PRN PRN PRN Reason: NAUSEA/VOMITING Last Admin: 11/20/19 03:47 Dose: 4 mg Documented by: Prochlorperazine Edisylate (Compazine Iv) 5 mg IV Q4H PRN PRN PRN Reason: Breakthrough Nausea/Vomiting Last Admin: 11/20/19 05:22 Dose: 5 mg Documented by: Promethazine HCl (Phenergan) 6.25 mg IV Q6H PRN PRN PRN Reason: NAUSEA/VOMITING Last Admin: 11/20/19 06:46 Dose: 6.25 mg Documented by: Sodium Chloride ([place] Nasal Quail) 4 spray NASAL Q4H [facility] [place] Last Admin: 11/21/19 04:54 Dose: 4 spray Documented by: Sodium Chloride () 10 - 40 ml IV UD PRN PRN Reason: SALINE FLUSH Last Admin: 11/21/19 06:53 Dose: 20 ml Documented by: Sodium Chloride (Sodium Chl 15 Ml) 5 ml INHALATION Q5M PRN PRN Reason: Suctioning Thiamine HCl (Vitamin B1) 100 mg GT DAILY [facility] [place] Last Admin: 11/20/19 12:13 Dose: 100 mg Documented by: Throat Lozenges (Cepacol Sore Throat Lozenge) 1 lozenge MUCOUS MEM Q2H PRN PRN PRN Reason: SORE THROAT Trazodone HCl (Desyrel) 100 mg GT QHS PRN PRN PRN Reason: INSOMNIA STROKE Vital Signs/Narrative: Vital Signs Temp Pulse Resp BP Pulse Ox 11/21/19 07:14 74 11/21/19 07:00 101.8 F H 74 16 101/63 95 11/21/19 06:45 101.8 F H 83 12 88/56 L 93 11/21/19 06:30 101.7 F H 88 14 101/65 87 11/21/19 06:15 101.6 F H 73 14 100/65 93 11/21/19 06:00 101.6 F H 75 16 124/75 H 95 11/21/19 05:45 101.6 F H 73 17 100/74 94 11/21/19 05:30 101.5 F H 74 13 106/77 92 11/21/19 05:15 101.5 F H 74 15 108/73 93 11/21/19 05:00 101.5 F H 76 16 108/72 93 11/21/19 04:51 15 11/21/19 04:45 101.5 F H 85 14 108/71 93 11/21/19 04:30 101.5 F H 85 14 103/61 92 11/21/19 04:15 101.4 F H 83 14 112/62 95 11/21/19 04:00 101.3 F H 79 14 113/78 95 11/21/19 03:45 101.3 F H 77 14 103/61 94 Medical Necessity - Tobacco Use Smoking Status: Never smoker Tobacco Use: Non-smoker Assessment/Plan All Active Problems (Last Updated 10/20/19 @ 11:12 by Dayana Gibson) Septic shock (Acute) Aspiration pneumonia (Acute) UTI (urinary tract infection) (Acute) Atrial fibrillation with RVR (Acute) Nasal bone fractures (Acute) Rhabdomyolysis (Acute) Alcohol withdrawal seizure (Acute) Hyponatremia (Acute) Traumatic rhabdomyolysis (Acute) Anemia (Acute) Acute kidney injury (Resolved) Multiple rib fractures (Acute) Pneumonia (Resolved) Pulmonary contusion (Acute) Acute alcoholic hepatitis (Resolved) Alcohol intoxication (Resolved) Alcohol withdrawal (Resolved) History of subdural hematoma (Resolved) Hyponatremia (Resolved) Non-union of fracture (Resolved) The patient is a 59 y/o F w/ PMHx: Morbid Obesity, EtOH Abuse (6-12 ounce beers daily) with frequent falls with History of DT prior, Hx SDH s/p craniotomy, Hx DUI w/ trauma, Anxiety and Depression, Chronic 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 1. Acute Septic Shock Secondary to Acute Hypoxic Respiratory failure secondary to Acute Septic Shock secondary to Aspiration Pneumonia and Complicated Klebsiella UTI: CXR in the ED w/ RLL infiltrate. Admission CBC w/ 19.4 with L shift. LA 8.3. Initially admitted to the ICU, consultation with Dr. Chavarria (Research Professor), given additional 2L bolus and continued aggressive MIVF, BP low transiently in the ED but improved, maintained on oxygen with wean as tolerated to room air, aspiration precautions, continued ATC duonebs, PRN albuterol, maintained on IV Rocephin and Flagyl and Vanc with eventual negative MRSA screen with de-escalation off vanc; however, following rocephin/azithromycin administration per ED patient with onset hives therefore administered IV benadryl/famotidine/deferred steroids as no hypoxia with transition to meropenem with planned 7 day course of treatment. Negative respiratory panel, requested sputum culture but unable to elicit, negative urine antigens, COVID negative. UCx w/ preliminary GNR >100,000 CFU-->11/19/19 Klebsiella sensitive to all agents except ampicillin and nitrofurantoin therefore Levaquin would also be appropriate. 11/19/19 noted more apparent difficulties managing secretions with speech consultation however on 11/20/2019 early a.m. patient with rapid response with evident aspiration with hypoxia following bout of emesis with noted nausea overnight requiring 2 different antiemetic therapies with immediate intubation needs and transition back to the ICU, intubated, sedated. Bld cx x 2 obtained in the ED without growth but given recent recurrent aspiration event requiring intubation and onset fevers, repeat Bld Cx 11/21/19 AM. Required pressor therapy initiation 11/20/19-11/21/19. 2. Suspected acute EtOH Withdrawal with possible associated seizure: Maintained on seizure precautions, continue treatment of acute presentation as noted, initiated and continued on protocol with taper course of Phenobarbital, scheduled gabapentin for seizure prophylaxis, as needed Catapres, Bentyl, Vistaril, IV fluids, IV antiemetics, Tylenol as needed for pain; however, respiratory distress with intubation 11/20/2019 a.m therefore discontinued phenobarbital scheduled taper, maintained on fentanyl and propofol therapy-->precedex given hypotension 11/20/19-11/21/19 as noted requiring p ressors. Case management consulted for assistance for transition to next level of rehabilitation care. Mag, phos supplementation ongoing as needed. 3. New onset, Paroxsymal atrial fibrillation: EKG in ED w/ atrial fibrillation w/ RVR. Patient administered cardizem bolus and transitioned to drip in ED. Maintained on telemetry, unremarkable serial enzymes, supplemented magnesium, TSH and FT4 demonstrate hypothyroidism with increase of her home synthroid regimen, ECHO obtained w/ noted normal LV size, wall motion and systolic function, EF 75%, mildly enlarged LA, trivial MVI, inability to assess diastolic dysfunction, spectral Doppler demonstrates late peaking pattern near the LVOT with a peak velocity approaching 3 m/second consistent with hyperdynamic state. Given patient considerable fall history and risks thus will defer anticoagulation. BPs low in the ED transiently but improved w/ ICU transition, required addition of also amiodarone bolus x 2 and drip. Given ongoing issues with RVR, Cardiology consulted and following. SR conversion 11/17/19 midafternoon. 11/18/19 transition of drips to oral amiodarone and oral coreg, 11/19/2019 cardiology directed Coreg increase secondary to ongoing mild tachycardia but given hypotension requiring pressors hold parameters ongoing 11/21/19. 11/21/19 CBC w/ WBC 15.8 with increased L shift. 4. Acute on Chronic Hyponatremia,Suspected secondary to Beer Potomania and Sepsis syndrome: Given #1 presentation, acute on chronic, given additional aggressive IVF bolus and continued MIVF currently, trending BMP with continued slow improvement. Mag being supplemented. TSH elevated and FT4 low with increase in her synthroid regimen. Delilah 48, UCr 94, UOsm 575. Na levels slowly improving with Nephrology recommended continued hydration, judicious, decreased to 75 cc/hr but given acute events with septic shock IVF increased 11/21/19. 11/21/19 Na 128. 5. Rhabdomyolysis, acute: Admission total CK 2115, unclear downtime, unclear of possible seizure activity with history of DTs prior and alcohol level upon admission 60, aggressively hydrating, monitoring outpatient, 11/20/19 TCK 458, improved from initial admission however increased from day prior. Possibly associated with acute events of a.m. noted in #1. 11/21/19 TCK normalized 147. 6. Mechanical fall with nasal bone fracture, nondisplaced in addition to right great toe laceration and left lateral heel laceration: Given patient mechanical fall CT head, neck and facial bones were assessed in the ED with only acute finding noted nasal bone nondisplaced fracture. Maintained on continue nasal sa line rinses with spray, ice and elevation of the head to assist with edema. Currently no necessity for operative intervention. Swelling improving with no obvious cosmetic deformity. Wound RN consulted for lacerations with continued dressing changes and local wound care. 7. Hyperglycemia consistent with prediabetes: Admission BS elevated, no history of diabetes, admission hemoglobin 202, hemoglobin A1c 6.0%, nutrition consulted, encouraged lifestyle/diet alterations to avoid further elevation of her A1c, patient intubated as noted #1, holding on oral intake. 8. Hypokalemia: Admission potassium 3.0, oral supplementation given, magnesium levels supplemented, 11/21/19 K 3.5. 9. History of mechanical fall with SDH: status post craniotomy, resolved but very high fall risk given ongoing alcohol abuse. 10. History of CVA: Reported history of prior stroke, given intent for sobriety following lengthy fall risk discussion, places on asa 81 mg daily, continued coreg recently added with d/c prior atenolol, added lower dose statin. 11. Anxiety and depression: We will continue patient home bupropion regimen. 12. Morbid Obesity: Weight loss and lifestyle changes encouraged, nutrition co nsulted. 13. Hypertension: Off cardizem and amiodarone drip, now transitioned to coreg 14. GERD: We will continue famotidine. 15. Hypothyroidism: TSH mildly elevated and T4 low, increased synthroid to 250 mcg daily and recommend repeat outpatient thyroid function testing per PCP. 16. DVT prophylaxis: SCDs, Lovenox. 17. CODE status: Full Code. Inpatient E&M: 55500 Subs Hosp L3
--- NOTE | 2019-11-21 07:58 | PN_ITS ---
Progress Note Central line note: Date of procedure: 11/20/2019 Time of procedure: 2340 Overnight patient became hypotensive and levophed started initially bree pherally. However nursing staff had to continue to increase the dosage therefore a central line was placed. Consent was obtained from family and patient was placed in the headdown position. The jugular vein was identified by ultrasound and then the patient was prepped and draped in the usual sterile fashion. The central was placed using ultrasound guidance in the right IJ. There was good blood return and guidewire passed easily without resistance. She tolerated the procedure well and after the procedure a chest x-ray was obtained which showed good position with the tip of the catheter in the SVC. Clearance was given to use a central line to nursing staff. STROKE Vital Signs/Narrative: Vital Signs Temp Pulse Resp BP Pulse Ox 11/21/19 07:14 74 11/21/19 07:00 101.8 F H 74 16 101/63 95 11/21/19 06:45 101.8 F H 83 12 88/56 L 93 11/21/19 06:30 101.7 F H 88 14 101/65 87 11/21/19 06:15 101.6 F H 73 14 100/65 93 11/21/19 06:00 101.6 F H 75 16 124/75 H 95 11/21/19 05:45 101.6 F H 73 17 100/74 94 11/21/19 05:30 101.5 F H 74 13 106/77 92 11/21/19 05:15 101.5 F H 74 15 108/73 93 11/21/19 05:00 101.5 F H 76 16 108/72 93 11/21/19 04:51 15 11/21/19 04:45 101.5 F H 85 14 108/71 93 11/21/19 04:30 101.5 F H 85 14 103/61 92 11/21/19 04:15 101.4 F H 83 14 112/62 95 11/21/19 04:00 101.3 F H 79 14 113/78 95 Procedures: [id number] Insert Non-tunnel CV Cath
--- NOTE | 2019-11-21 09:44 | PCM.PN.CARD ---
Subjectve: Patient still intubated. Hemodynamically unstable with hypotension while patient was on IV propofol. This was transitioned to IV Precedex. Patient has been on low-dose of IV Levophed to maintain blood pressure. Sodium has come back up to 128. There has been no recurrence of atrial fibrillation. At the moment she is being treated for sepsis with fever and leukocytosis. 2 sources of infection: Aspiration pneumonia and urinary tract infection. Objective: Vital Signs Temp Pulse Resp BP Pulse Ox 101.8 F H 74 16 101/63 95 11/21/19 07:00 11/21/19 07:14 11/21/19 07:00 11/21/19 07:00 11/21/19 07:00 Oxygen Flow Rate (L/min) 2 Oxygen Delivery Method Mechanical Ventilator Weight: 283 lb 4.704 oz Body Mass Index (BMI) 44.0 Intake and Output for Last 24 Hours 11/19/19 11/20/19 11/21/19 23:59 23:59 23:59 Intake Total 4821.65 / 4821.65 4009.18 / 4533.48 2078.05 / 2077.05 Output Total 892 / 922 150 / 150 Balance 4821.65 / 4821.65 3117.18 / 3611.48 1928.05 / 1928.05 General: - - Intubated and sedated HEENT: - - Periorbital ecchymoses Neck: Supple Lungs: - - Decreased air entry and intubated Cardiovascular: Regular Rhythm, Normal S1, Normal S2, No Murmurs, No Rubs, No Gallops Abdomen: Bowel Sounds Present, Soft, Non Tender, No HSM, No Organomegaly Neurological: - - Intubated and sedated 11/20/19 09:03: Sodium 126 L, Potassium 3.5, Chloride 93 L, Carbon Dioxide 26.0, Anion Gap 7, BUN 7, Creatinine 0.53 L, Est GFR (MDRD) Af Amer 153, Est GFR (MDRD) Non-Af 126, BUN/Creatinine Ratio 13.3, Glucose 131 H, Calcium 7.4 L, Total Bilirubin 0.60 11/20/19 09:35: WBC 9.2, RBC 4.01 L, Hgb 11.1 L, Hct 34.4 L, MCV 85.8, MCH 27.7, MCHC 32.3, Plt Count 136 L, MPV 9.7, Immature Gran % (Auto) 0.400, Neut % (Auto) 88.8 H, Lymph % (Auto) 4.2 L, [place] % (Auto) 5.6, Eos % (Auto) 0.8, Baso % (Auto) 0.2, Absolute Neuts (auto) 8.2 H, Nucleated RBC % 0 11/21/19 04:50: WBC 15.8 H, RBC 4.30, Hgb 11.8 L, Hct 37.3, MCV 86.7, MCH 27.4, MCHC 31.6 L, Plt Count 170, MPV 9.7, Immature Gran % (Auto) 0.800, Neut % (Auto) 85.4 H, Lymph % (Auto) 3.9 L, [place] % (Auto) 7.4, Eos % (Auto) 2.2, Baso % (Auto) 0.3, Absolute Neuts (auto) 13.5 H, Nucleated RBC % 0 11/21/19 04:50: Sodium 128 L, Potassium 3.5, Chloride 95 L, Carbon Dioxide 26.0, Anion Gap 7, BUN 8, Creatinine 0.64, Est GFR (MDRD) Af Amer 121, Est GFR (MDRD) Non-Af 100, BUN/Creatinine Ratio 12.4, Glucose 103, Calcium 7.7 L, Total Bilirubin 0.50 Rhythm: EKG: ECHO: Stress Test: Cardiac Cath: PCI: CT Surgery: Holter monitor: EPS: PPM: CXR: Chest CT Scan: Medical Necessity - Tobacco Use Smoking Status: Never smoker Tobacco Use: Non-smoker Assessment/Plan #1 She is still in normal sinus rhythm. She is still getting amiodarone loading. Sodium now is 128. She is being treated for sepsis with leukocytosis and fever. She has had urinary tract infection and aspiration pneumonia. She is still intubated on low-dose IV Levophed. For sedation patient is on IV Precedex. At this point there is no change in cardiac medication. Liver enzymes now normal despite continuous amiodarone loading
[2019-11-21] MEDS: Vital AF 1.2 Cal Liquid 1,000 ML 70 ML GT (10:47)
[2019-11-21] MEDS: Enoxaparin 40 MG/0.4 ML Syringe SC (10:48)
[2019-11-21] MEDS: Folic Acid 1 MG Tablet GT (10:49)
[2019-11-21] MEDS: Loratadine 10 MG Tablet GT (10:49)
[2019-11-21] MEDS: buPROPion 75 MG Tablet GT ×2 (10:49→21:13)
[2019-11-21] MEDS: Aspirin 81 MG TAB.CHEW GT (10:49)
[2019-11-21] MEDS: Amiodarone 200 MG Tablet 400 MG GT ×2 (10:49→21:13)
[2019-11-21] MEDS: Thiamine Hydrochloride 100 MG Tablet GT (10:49)
[2019-11-21] MEDS: Menthol/Lanolin/Calamine/Znox 113 GM Tube 1 APPLIC TOPICAL ×4 (10:50→21:15)
[2019-11-21] MEDS: Famotidine 20 MG Tablet GT ×2 (10:50→21:13)
[2019-11-21] MEDS: Chlorhexidine 15 ML PO ×2 (10:52→21:15)
[2019-11-21] MEDS: Ibuprofen 100 MG/5 ML UDC PO (18:01)
[2019-11-21] MEDS: Atorvastatin Calcium 20 MG Tablet GT (21:13)
[2019-11-22] VITALS (68 sets, daily range): BP systolic 76–125; BP diastolic 42–72; PULSE 69–95; RESP 10–76; TEMP 38.1–38.9; O2SAT 78–98
[2019-11-22] MEDS: Ibuprofen 100 MG/5 ML UDC PO ×2 (02:05→13:52)
[2019-11-22] MEDS: Sodium Chloride 0.65% 1 SPRAY SPRAY.BTL 4 SPRAY NASAL ×6 (02:05→19:49)
[2019-11-22] MEDS: guaiFENesin 10 ML UDC (200MG/10ML) GT ×4 (02:47→19:50)
[2019-11-22] MEDS: Acetaminophen 650 MG/20 ML UDC GT ×2 (02:47→18:05)
[2019-11-22] MEDS: 0.9% Normal Saline 1,000 ML 125 ML IV (03:57)
[2019-11-22] MEDS: Dexmedetomidine 1,000 mcg in 0.9% NS 240 mL 25.7 MCG CONT INF (03:58)
[2019-11-22 04:19] LABS: Hematocrit 34.2 % (37-47); Hemoglobin 10.6 g/dL (12.0-15.0); Mean Platelet Vol. 9.2 fl (6.2-12.0); POSITIVE COUNT YES; POSITIVE MORPHOLOGY YES; Platelet Count 156 K/mm3 (150-450); RBC Distribution Width CV 16.3 % (11.6-14.6); RBC Distribution Width SD 51.1 fl (35.1-43.9); Red Blood Count 3.93 M/mm3 (4.2-5.4); White Blood Count 11.5 K/mm3 (4.4-11.0)
[2019-11-22 04:21] LABS: Differential Indicated MANUAL DIFF
[2019-11-22] MEDS: TITRATION PARAMETER CHANGE 1 EACH IV (04:28)
[2019-11-22 04:38] LABS: ALB/GLOB Ratio 0.5 RATIO (0.9-2.4); AST(SGOT) 29 U/L (15-37); Alanine Aminotransfer ALT/SGPT 28 U/L (13-56); Albumin, Serum 1.7 g/dL (3.2-5.0); Alkaline Phosphatase 90 U/L (45-117); Anion Gap 7 (5-15); BUN 7 mg/dL (7-18); BUN/Creat Ratio 11.7 RATIO (10-20); CPK Total, Creatine Kinase 187 U/L (26-192); Calcium,Total 7.4 mg/dL (8.5-10.1); Chloride 98 mmol/L (98-107); EST Glomerular Filtration Rate 109 mL/min (>60); Est Glom Filt Rate - Afr Amer 132 mL/min (>60); Estimated Creatinine Clearance 99.39 ml/min; Globulin 3.6 g/dL (2.2-4.2); Glucose 148 mg/dL (74-106); Potassium 3.2 mmol/L (3.5-5.1); Protein, Total 5.3 g/dL (6.4-8.2); Sodium Level 131 mmol/L (136-145)
[2019-11-22 05:00] LABS: Total Cells Counted 100 (MANUAL DIFF)
[2019-11-22 05:01] LABS: Absolute Neutrophil Count 9.8 X10^3/uL (2.0-7.7); Lymphocyte 13 % (19-41); Metamyelocyte 5 % (0-1); Monocyte 2 % (0-10); Neutrophil # 9.77 X10^3/uL (2.7-7.7); Neutrophil-Band 24 % (0-5); Neutrophil-Segmented 61 % (47-70)
[2019-11-22 05:02] LABS: Hypochromasia RARE; Platelet Estimate ADEQUATE (ADEQ); Red Cell Morphology N CYTIC NORMAL (NORM C&C)
[2019-11-22] MEDS: Nystatin Powder 15gm Bottle 1 APPLIC TOPICAL ×3 (05:28→19:49)
[2019-11-22] MEDS: Levothyroxine 100 MCG Tablet 200 MCG GT (05:29)
[2019-11-22] MEDS: Levothyroxine 50 MCG Tablet GT (05:29)
[2019-11-22 06:26] LABS: Magnesium 1.7 mg/dL (1.6-2.6)
--- NOTE | 2019-11-22 07:06 | PCM.PN.INT ---
Subjective: Patient did okay overnight. Able to come off of Levophed this morning. Patient has remained persistently febrile and thick secretions have been reported by respiratory nursing throughout the evening. Patient was able to tolerate spontaneous breathing trial this morning. General: Alert, Cooperative, - - Interactive. Morbidly obese. HEENT: PERRLA, EOMI, Normocephalic, - - Ecchymosis periorbitally Oral: Moist Mucosa, No Gingival or Mucosal Lesions/ Ulcerations Neck: Supple, No JVD, No Nodes, Trachea Midline Lungs: No wheeze, No rales, Diminished, Rhonchi - Right base Cardiovascular: Regular rate, Regular Rhythm, Normal S1, Normal S2, No murmurs, No rub noted, No Gallop Abdomen: Bowel Sounds Present, Soft, Non Tender, Non-Distended, Obese Extremities: No clubbing, No cyanosis, Edema Skin: - - Multiple areas of ecchymosis noted. Musculoskeletal: No Tenderness to Palpation of Joints or Extremities Lymphatic: No Cervical, Supraclavicular, or Inguinal Adenopathy Neurological: Cranial nerves II-XII grossly intact, Neuro grossly intact, Motor Exam 5/5 strength throughout Psych/Mental Status: Appropriate, Flat Affect Vital Signs Temp Pulse Resp BP Pulse Ox 38.4 C H 71 14 90/58 L 95 11/22/19 06:45 11/22/19 06:45 11/22/19 06:45 11/22/19 06:45 11/22/19 06:45 Oxygen Flow Rate (L/min) 30 Oxygen Delivery Method Mechanical Ventilator Weight: 133.8 kg Body Mass Index (BMI) 44.0 Intake and Output for Last 24 Hours 11/20/19 11/21/19 11/22/19 23:59 23:59 23:59 Intake Total 4009.18 / 4533.48 5778.09 / 5821.14 2110.70 / 2110.70 Output Total 892 / 922 612 / 612 165 / 165 Balance 3117.18 / 3611.48 5166.09 / 5209.14 1945.70 / 1945.70 Labs (Last 48 Hours) 11/20/19 11/20/19 11/20/19 00:15 07:24 08:43 WBC RBC Hgb Hct MCV MCH MCHC RDW Std Deviation RDW Coeff of Cecil Plt Count MPV Immature Gran % (Auto) Neut % (Auto) Lymph % (Auto) [place] % (Auto) Eos % (Auto) Baso % (Auto) Absolute Neuts (auto) Absolute Lymphs (auto) Total Counted Neutrophils % (Manual) Band Neutrophils % Lymphocytes % (Manual) Monocytes % (Manual) Metamyelocytes % Nucleated RBC % Differential Comment Diff Path Review Platelet Estimate RBC Morphology Hypochromasia Specimen Type ART Sample Site R Brach pH 7.35 Bicarbonate Actual 24.6 Total CO2 26 Base Excess -1 O2 Saturation 91 L O2 % 40 ABG pCO2 45.0 ABG pO2 64 L Respiration Rate 14.0000 O2 Delivery Device Adult Vent Vent Mode AC Tidal Volume 450 Sodium Potassium Chloride Carbon Dioxide Anion Gap BUN Creatinine Estim Creat Clear Calc Est GFR (MDRD) Af Amer Est GFR (MDRD) Non-Af BUN/Creatinine Ratio Glucose Calcium Phosphorus Magnesium Total Bilirubin AST ALT Alkaline Phosphatase Total Creatine Kinase Total Protein Albumin Globulin Albumin/Globulin Ratio Hep Bs Antigen Cancelled Hep Bs Antibody Cancelled Hepatitis C Antibody Cancelled HIV 1&2 Antibody Cancelled POC Glucose 152 H 11/20/19 11/20/19 11/20/19 09:03 09:03 09:35 WBC 9.2 RBC 4.01 L Hgb 11.1 L Hct 34.4 L MCV 85.8 MCH 27.7 MCHC 32.3 RDW Std Deviation 47.8 H RDW Coeff of Cecil 15.3 H Plt Count 136 L MPV 9.7 Immature Gran % (Auto) 0.400 Neut % (Auto) 88.8 H Lymph % (Auto) 4.2 L [place] % (Auto) 5.6 Eos % (Auto) 0.8 Baso % (Auto) 0.2 Absolute Neuts (auto) 8.2 H Absolute Lymphs (auto) 0.39 L Total Counted Neutrophils % (Manual) Band Neutrophils % Lymphocytes % (Manual) Monocytes % (Manual) Metamyelocytes % Nucleated RBC % 0 Differential Comment SCANNED Diff Path Review Platelet Estimate RBC Morphology Hypochromasia Specimen Type Sample Site pH Bicarbonate Actual Total CO2 Base Excess O2 Saturation O2 % ABG pCO2 ABG pO2 Respiration Rate O2 Delivery Device Vent Mode Tidal Volume Sodium 126 L Potassium 3.5 Chloride 93 L Carbon Dioxide 26.0 Anion Gap 7 BUN 7 Creatinine 0.53 L Estim Creat Clear Calc 112.51 Est GFR (MDRD) Af Amer 153 Est GFR (MDRD) Non-Af 126 BUN/Creatinine Ratio 13.3 Glucose 131 H Calcium 7.4 L Phosphorus Magnesium Total Bilirubin 0.60 AST 62 H ALT 40 Alkaline Phosphatase 86 Total Creatine Kinase 458 H Total Protein 5.7 L Albumin 2.2 L Globulin 3.5 Albumin/Globulin Ratio 0.6 L Hep Bs Antigen Hep Bs Antibody Hepatitis C Antibody HIV 1&2 Antibody POC Glucose 11/21/19 11/21/19 11/22/19 04:50 04:50 04:05 WBC 15.8 H 11.5 H RBC 4.30 3.93 L Hgb 11.8 L 10.6 L Hct 37.3 34.2 L MCV 86.7 87.0 MCH 27.4 27.0 MCHC 31.6 L 31.0 L RDW Std Deviation 49.5 H 51.1 H RDW Coeff of Cecil 15.9 H 16.3 H Plt Count 170 156 MPV 9.7 9.2 Immature Gran % (Auto) 0.800 Neut % (Auto) 85.4 H Not Reportable Lymph % (Auto) 3.9 L [place] % (Auto) 7.4 Eos % (Auto) 2.2 Baso % (Auto) 0.3 Absolute Neuts (auto) 13.5 H 9.8 H Absolute Lymphs (auto) 0.62 L 1.50 Total Counted 100 Neutrophils % (Manual) 61 Band Neutrophils % 24 H Lymphocytes % (Manual) 13 L Monocytes % (Manual) 2 Metamyelocytes % 5 H Nucleated RBC % 0 Differential Comment Diff Path Review May foll Platelet Estimate ADEQUATE RBC Morphology N CYTIC Hypochromasia RARE Specimen Type Sample Site pH Bicarbonate Actual Total CO2 Base Excess O2 Saturation O2 % ABG pCO2 ABG pO2 Respiration Rate O2 Delivery Device Vent Mode Tidal Volume Sodium 128 L Potassium 3.5 Chloride 95 L Carbon Dioxide 26.0 Anion Gap 7 BUN 8 Creatinine 0.64 Estim Creat Clear Calc 93.18 Est GFR (MDRD) Af Amer 121 Est GFR (MDRD) Non-Af 100 BUN/Creatinine Ratio 12.4 Glucose 103 Calcium 7.7 L Phosphorus Magnesium Total Bilirubin 0.50 AST 36 ALT 36 Alkaline Phosphatase 91 Total Creatine Kinase 147 Total Protein 5.9 L Albumin 2.3 L Globulin 3.6 Albumin/Globulin Ratio 0.6 L Hep Bs Antigen Hep Bs Antibody Hepatitis C Antibody HIV 1&2 Antibody POC Glucose 11/22/19 11/22/19 04:05 04:05 WBC RBC Hgb Hct MCV MCH MCHC RDW Std Deviation RDW Coeff of Cecil Plt Count MPV Immature Gran % (Auto) Neut % (Auto) Lymph % (Auto) [place] % (Auto) Eos % (Auto) Baso % (Auto) Absolute Neuts (auto) Absolute Lymphs (auto) Total Counted Neutrophils % (Manual) Band Neutrophils % Lymphocytes % (Manual) Monocytes % (Manual) Metamyelocytes % Nucleated RBC % Differential Comment Diff Path Review Platelet Estimate RBC Morphology Hypochromasia Specimen Type Sample Site pH Bicarbonate Actual Total CO2 Base Excess O2 Saturation O2 % ABG pCO2 ABG pO2 Respiration Rate O2 Delivery Device Vent Mode Tidal Volume Sodium 131 L Potassium 3.2 L Chloride 98 Carbon Dioxide 26.0 Anion Gap 7 BUN 7 Creatinine 0.60 Estim Creat Clear Calc 99.39 Est GFR (MDRD) Af Amer 132 Est GFR (MDRD) Non-Af 109 BUN/Creatinine Ratio 11.7 Glucose 148 H Calcium 7.4 L Phosphorus 2.0 L Magnesium 1.7 Total Bilirubin 0.40 AST 29 ALT 28 Alkaline Phosphatase 90 Total Creatine Kinase 187 Total Protein 5.3 L Albumin 1.7 L Globulin 3.6 Albumin/Globulin Ratio 0.5 L Hep Bs Antigen Hep Bs Antibody Hepatitis C Antibody HIV 1&2 Antibody POC Glucose Microbiology 11/21/19 19:30 Sputum, Induced/Lukens Gram Stain - Preliminary 11/20/19 11:00 Sputum, Induced/Lukens Gram Stain - Final 11/20/19 11:00 Sputum, Induced/Lukens Respiratory Culture - Preliminary Presumptive C albicans Medical Necessity - Tobacco Use Smoking Status: Never smoker Tobacco Use: Non-smoker Assessment/Plan All Active Problems (Last Updated 10/20/19 @ 11:12 by Dayana Gibson) Septic shock (Acute) Aspiration pneumonia (Acute) UTI (urinary tract infection) (Acute) Atrial fibrillation with RVR (Acute) Nasal bone fractures (Acute) Rhabdomyolysis (Acute) Alcohol withdrawal seizure (Acute) Hyponatremia (Acute) Traumatic rhabdomyolysis (Acute) Anemia (Acute) Acute kidney injury (Resolved) Multiple rib fractures (Acute) Pneumonia (Resolved) Pulmonary contusion (Acute) Acute alcoholic hepatitis (Resolved) Alcohol intoxication (Resolved) Alcohol withdrawal (Resolved) History of subdural hematoma (Resolved) Hyponatremia (Resolved) Non-union of fracture (Resolved) RECOMMENDATIONS: 1. Continue antimicrobials pending repeat infectious work-up. 2. Initiate Levophed if needed to maintain a mean arterial pressure at or above 65 mmHg. 3. Continue Precedex and fentanyl for sedation. Goal to maintain a RASS of -1 to 1. 4. Continue tube feeds. Initiate bowel regimen 5. Plan for paired spontaneous awakening and breathing trials per protocol. 6. Continue to wean FiO2 as tolerated. 7. Continue appropriate ICU prophylaxis. IMPRESSIONS: 1. Acute hypoxemic respiratory failure Appears to be precipitated by large emesis with witnessed aspiration, leading to respiratory decompensation. The patient did have to be emergently intubated prior to transfer to the ICU. She has stabilized at this time with invasive mechanical ventilatory support. We will continue broad-spectrum antimicrobial therapy. Patient with persistent febrile and thick secretions. We will hold off on extubation for now until secretions can be stabilized. Will attempt diuretic therapy later today. Patient will need a bowel regimen also. 2. Septic shock The patient was initially admitted to the hospital with septic shock and was treated for a right lower lobe pneumonia and Klebsiella urinary tract infection. She improved clinically and was hemodynamically stable. However, on the morning of November 19 the patient had to be emergently intubated after a witnessed aspiration event. She subsequently went on to develop hypotension and new onset fevers. Eventually, low-dose Levophed had to be started to maintain hemodynamic stability. This is currently on hold, but can be reinitiated to maintain a mean arterial pressure at or above 65 mmHg. Repeat infectious work-up is currently pending. 3. Hyponatremia/hypochloremia/hypophosphatemia Likely secondary to beer potomania and intravascular volume depletion. The patient is currently being volume resuscitated, with slow improvement in sodium level noted. Hold IV hydration. Continue tube feeds. Continue aggressive electrolyte repletion. 4. New onset atrial fibrillation with RVR/history of PFO Resolved. Continue rate/rhythm control strategy per cardiology recommendations. The patient does have a history of a PFO, but her history of recurrent falls would likely preclude her from consideration for systemic anticoagulation. 5. Longstanding history of alcoholism Continue CIWA protocol and monitor for alcohol withdrawal symptoms. Continue thiamine and folate. 6. Depression/hypothyroidism/obesity Complicates care, management, recovery and prognosis. Continue home medications as indicated. Physical therapy to work with the patient. TIME: 40 minutes of critical care time, inclusive of procedures, was spent addressing the patient's acute hypoxemic respiratory failure, septic shock, encephalopathy, hyponatremia, atrial fibrillation, alcoholism, review of all data and collaboration with the care team. (5:20 AM to 7 AM) [id number]: [id number] Critical care first hour
--- NOTE | 2019-11-22 07:53 | PN.CARD_ITS ---
Subjectve: Patient seen and evaluated. Appears to be doing better. Has converted back to sinus rhythm. And tolerating the amiodarone quite well. Objective: Vital Signs Temp Pulse Resp BP Pulse Ox 101.2 F H 70 14 86/57 L 96 11/22/19 06:45 11/22/19 07:30 11/22/19 07:30 11/22/19 07:30 11/22/19 07:30 Oxygen Flow Rate (L/min) 30 Oxygen Delivery Method Mechanical Ventilator Weight: 294 lb 15.656 oz Body Mass Index (BMI) 44.0 Intake and Output for Last 24 Hours 11/20/19 11/21/19 11/22/19 23:59 23:59 23:59 Intake Total 4009.18 / 4533.48 5778.09 / 5821.14 213.88 / 213.88 Output Total 892 / 922 612 / 612 165 / 165 Balance 3117.18 / 3611.48 5166.09 / 5209.14 1971. / General: Awake HEENT: PERRL, EOMI, Sclera Non Icteric Neck: Supple, Good ROM, No Lymph Node Enlargement Lungs: Clear to auscultation Cardiovascular: Regular Rhythm, Normal S1, Normal S2, No Murmurs, No Rubs, No Gallops Vascular: No Carotid Bruits, Normal Femoral Pulses, Normal Radial Pulses, Normal Dorsalis Pedal Pulse, Normal Posterior Tibial Pulses Abdomen: Bowel Sounds Present, Soft, Non Tender, No HSM, No Organomegaly Extremities: No Cyanosis, No Clubbing, No edema Musculoskeletal: No Erythema Skin: No Rashes Neurological: No Focal Motor or Sensory Deficit 11/22/19 04:05: WBC 11.5 H, RBC 3.93 L, Hgb 10.6 L, Hct 34.2 L, MCV 87.0, MCH 27.0, MCHC 31.0 L, Plt Count 156, MPV 9.2, Neut % (Auto) Not Reportable, Absolute Neuts (auto) 9.8 H, Total Counted 100, Neutrophils % (Manual) 61, Band Neutrophils % 24 H, Lymphocytes % (Manual) 13 L, Monocytes % (Manual) 2, Metamyelocytes % 5 H 11/22/19 04:05: Sodium 131 L, Potassium 3.2 L, Chloride 98, Carbon Dioxide 26.0, Anion Gap 7, BUN 7, Creatinine 0.60, Est GFR (MDRD) Af Amer 132, Est GFR (MDRD) Non-Af 109, BUN/Creatinine Ratio 11.7, Glucose 148 H, Calcium 7.4 L, Total Bilirubin 0.40 11/22/19 04:05: Phosphorus 2.0 L, Magnesium 1.7 Rhythm: EKG: ECHO: Stress Test: Cardiac Cath: PCI: CT Surgery: Holter monitor: EPS: PPM: CXR: Chest CT Scan: Medical Necessity - Tobacco Use Smoking Status: Never smoker Tobacco Use: Non-smoker Assessment/Plan 1. Atrial fibrillation * Above likely secondary to sepsis. The above is being treated. At this time I would recommend we continue the beta-john as well as the amiodarone. * Would recommend reducing amiodarone dose to 200 mg twice a day. * Echocardiogram demonstrated preserved left ventricular systolic function. * Will follow with you peripherally. * * Thank you for allowing me to participate in the care of your patient. Please don't hesitate to call if any issues arise.
[2019-11-22] MEDS: Amiodarone 200 MG Tablet GT ×2 (10:11→19:48)
[2019-11-22] MEDS: Thiamine Hydrochloride 100 MG Tablet GT (10:12)
[2019-11-22] MEDS: Loratadine 10 MG Tablet GT (10:12)
[2019-11-22] MEDS: Enoxaparin 40 MG/0.4 ML Syringe SC (10:12)
[2019-11-22] MEDS: Folic Acid 1 MG Tablet GT (10:12)
[2019-11-22] MEDS: buPROPion 75 MG Tablet GT ×2 (10:12→19:51)
[2019-11-22] MEDS: Aspirin 81 MG TAB.CHEW GT (10:13)
[2019-11-22] MEDS: Menthol/Lanolin/Calamine/Znox 113 GM Tube 1 APPLIC TOPICAL ×4 (10:13→19:46)
[2019-11-22] MEDS: Famotidine 20 MG Tablet GT ×2 (10:13→19:50)
[2019-11-22] MEDS: Senna Tablet 2 TABLET GT ×2 (10:16→19:50)
[2019-11-22] MEDS: Chlorhexidine 15 ML PO ×2 (10:17→19:46)
--- NOTE | 2019-11-22 10:24 | CASEMGMT ---
Addendum entered by hSira Braxton 11/22/19 11:43: SUSY did fax updates to [facility]. Shira [employer]DER Original Note: SUSY spoke with Nazanin at [facility] and let her know patient is not ready for discharge yet. SUSY will keep in touch with her. Shira G[employer]DER
--- NOTE | 2019-11-22 11:33 | PCM.PN.REN ---
Patient Problems: Active and Suspected Problems (Last Updated 10/20/19 @ 11:12 by Dayana Gibson) Septic shock (Acute) Aspiration pneumonia (Acute) UTI (urinary tract infection) (Acute) Atrial fibrillation with RVR (Acute) Nasal bone fractures (Acute) Rhabdomyolysis (Acute) Alcohol withdrawal seizure (Acute) Subjective: on vent, responding to yes/no questions. No abdominal pain. tolerating TF. Sodium improving. Urine dark venita - Physical Exam Vitals/I&O's: Vital Signs Temp Pulse Resp BP Pulse Ox 100.5 F H 95 76 H 89/64 L 78 11/22/19 08:00 11/22/19 11:21 11/22/19 11:21 11/22/19 10:30 11/22/19 11:21 Oxygen Flow Rate (L/min) 30 Oxygen Delivery Method Mechanical Ventilator Weight: 133.8 kg Body Mass Index (BMI) 44.0 Intake and Output for Last 24 Hours 11/20/19 11/21/19 11/22/19 23:59 23:59 23:59 Intake Total 4009.18 / 4533.48 5778.09 / 5821.14 2494.88 / 2494.88 Output Total 892 / 922 612 / 612 215 / 215 Balance 3117.18 / 3611.48 5166.09 / 5209.14 2279.88 / 2279.88 General: - - awake on vent Lungs: Rhonchi Cardiovascular: Regular rate Abdomen: Soft, Non Tender, Obese Extremities: Edema - mild RLE edema Psych/Mental Status: - - awake on vent, responding Microbiology Past 72 Hours 11/17/19 06:30 Blood Culture (Wb) - Anticubital Right Blood Culture - Final No growth in 5 days. 11/17/19 06:50 Blood Culture (Wb) - Left Wrist Blood Culture - Final No growth in 5 days. 11/21/19 19:30 Sputum, Induced/Lukens Gram Stain - Final 11/20/19 11:00 Sputum, Induced/Lukens Gram Stain - Final 11/20/19 11:00 Sputum, Induced/Lukens Respiratory Culture - Preliminary Presumptive C albicans 11/17/19 07:00 Urine Catheter - Catheter Urine Culture - Final Klebsiella pneumoniae sp pneum Laboratory Results 11/22/19 04:05: WBC 11.5 H, RBC 3.93 L, Hgb 10.6 L, Hct 34.2 L, MCV 87.0, MCH 27.0, MCHC 31.0 L, RDW Std Deviation 51.1 H, RDW Coeff of Cecil 16.3 H, Plt Count 156, MPV 9.2, Neut % (Auto) Not Reportable, Absolute Neuts (auto) 9.8 H, Absolute Lymphs (auto) 1.50, Total Counted 100, Neutrophils % (Manual) 61, Band Neutrophils % 24 H, Lymphocytes % (Manual) 13 L, Monocytes % (Manual) 2, Metamyelocytes % 5 H, Diff Path Review June, Platelet Estimate ADEQUATE, RBC Morphology N CYTIC, Hypochromasia RARE 11/22/19 04:05: Sodium 131 L, Potassium 3.2 L, Chloride 98, Carbon Dioxide 26.0, Anion Gap 7, BUN 7, Creatinine 0.60, Estim Creat Clear Calc 99.39, Est GFR (MDRD) Af Amer 132, Est GFR (MDRD) Non-Af 109, BUN/Creatinine Ratio 11.7, Glucose 148 H, Calcium 7.4 L, Total Bilirubin 0.40, AST 29, ALT 28, Alkaline Phosphatase 90, Total Creatine Kinase 187, Total Protein 5.3 L, Albumin 1.7 L, Globulin 3.6, Albumin/Globulin Ratio 0.5 L 11/22/19 04:05: Phosphorus 2.0 L, Magnesium 1.7 Current Medications Acetaminophen (Tylenol) 650 mg RECTAL Q4H PRN PRN PRN Reason: Pain Score 1-10/Temp > 100.7 F Acetaminophen (Tylenol Liquid) 650 mg GT Q6H PRN PRN PRN Reason: Pain Score 1-10/10/FEVER Last Admin: 11/22/19 02:47 Dose: 650 mg Documented by: Al Hydroxide/Mg Hydroxide (Mylanta Ii) 30 ml GT Q6H PRN PRN PRN Reason: Gastric Burning Albuterol Sulfate (Ventolin Aerosols) 2.5 mg INHALATION Q2H PRN PRN PRN Reason: Dyspnea, wheezing Amiodarone HCl (Cordarone) 200 mg GT BID [facility] Last Admin: 11/22/19 10:11 Dose: 200 mg Documented by: Aspirin (Aspirin, Baby) 81 mg GT DAILY [facility] Last Admin: 11/22/19 10:13 Dose: 81 mg Documented by: Atorvastatin Calcium (Lipitor) 20 mg GT QHS [facility] Last Admin: 11/21/19 21:13 Dose: 20 mg Documented by: Bupropion HCl (Wellbutrin Tablets) 75 mg GT BID [facility] Last Admin: 11/22/19 10:12 Dose: 75 mg Documented by: Calamine/Phenol (Calmoseptine Ointment) 1 applic TOPICAL 4X/DAY [facility]; Protocol Last Admin: 11/22/19 10:13 Dose: 1 applic Documented by: Chlorhexidine Gluconate () 15 ml PO BID [facility] Last Admin: 11/22/19 10:17 Dose: 15 ml Documented by: Dicyclomine HCl (Bentyl) 20 mg GT Q6H PRN PRN PRN Reason: abdominal discomfort Emollient Ointment (Eucerin Intensive Repair) 1 applic TOPICAL QHS [facility]; Protocol Last Admin: 11/21/19 21:16 Dose: 1 applicatio Documented by: Enoxaparin Sodium (Lovenox) 40 mg SC DAILY [facility] Last Admin: 11/22/19 10:12 Dose: 40 mg Documented by: Famotidine (Pepcid) 20 mg GT BID [facility] Last Admin: 11/22/19 10:13 Dose: 20 mg Documented by: Folic Acid (Folic Acid) 1 mg GT DAILY [facility] Last Admin: 11/22/19 10:12 Dose: 1 mg Documented by: Gabapentin (Neurontin) 300 mg GT Q8H PRN PRN PRN Reason: moderate to severe anxiety Guaifenesin (Robitussin) 10 ml GT Q6H [facility] Last Admin: 11/22/19 10:11 Dose: 10 ml Documented by: Hydroxyzine Pamoate (Vistaril Pamoate Capsule) 50 mg GT Q4H PRN PRN PRN Reason: mild anxiety Sodium Chloride () 250 mls @ 15 mls/hr IV .[id number] PRN PRN Reason: Saline Flush Last Infusion: 11/22/19 05:26 Dose: 0 mls/hr Documented by: Sodium Chloride () 250 mls @ 15 mls/hr IV .[id number] PRN PRN Reason: Additional IVPB Infusion Last Infusion: 11/21/19 12:29 Dose: Infused Documented by: Meropenem 1 gm/ Sodium (Chloride) 120 mls @ 33 mls/hr IV Q8 [facility] Stop: 11/24/19 14:01 Last Infusion: 11/22/19 09:10 Dose: Infused Documented by: Fentanyl Citrate 1,000 mcg/ (Sodium Chloride) 100 mls @ 5 mls/hr CONT INF .Q20H [facility]; Protocol Last Titration: 11/22/19 10:00 Dose: 75 mcg/hr, 7.5 mls/hr Documented by: Norepinephrine Bitartrate 8 mg (/ Sodium Chloride) 250 mls @ 9.375 mls/hr CONT INF .[id number] [facility]; Protocol Last Titration: 11/22/19 10:30 Dose: 5 mcg/min, 9.4 mls/hr Documented by: Dexmedetomidine HCl 1,000 mcg/ (Sodium Chloride) 250 mls @ 16.725 mls/hr CONT INF .[id number] [facility]; Protocol Last Titration: 11/22/19 10:00 Dose: 0.8 mcg/kg/hr, 26.8 mls/hr Documented by: Enteral Nutritional Formula (Vital Af 1.2 Matt Liquid) 1,000 mls @ 70 mls/hr GT .[id number] [facility] Last Admin: 11/22/19 00:44 Dose: Not Given Documented by: Potassium Phosphate 30 mm/ (Sodium Chloride) 260 mls @ 42 mls/hr IV X1 ONE Stop: 11/22/19 13:26 Last Admin: 11/22/19 08:44 Dose: 42 mls/hr Documented by: Ibuprofen (Motrin Liquid) 100 mg PO Q8H PRN PRN PRN Reason: fever, pain -12/03 Last Admin: 11/22/19 02:05 Dose: 100 mg Documented by: Levothyroxine Sodium (Synthroid) 50 mcg GT DAILY@0600 [facility] Last Admin: 11/22/19 05:29 Dose: 50 mcg Documented by: Levothyroxine Sodium (Synthroid) 200 mcg GT DAILY@0600 [facility] Last Admin: 11/22/19 05:29 Dose: 200 mcg Documented by: Loperamide HCl (Imodium) 2 mg GT Q4H PRN PRN PRN Reason: LOOSE STOOLS Loratadine (Claritin) 10 mg GT DAILY [facility] Last Admin: 11/22/19 10:12 Dose: 10 mg Documented by: Magnesium Hydroxide (Milk Of Magnesia) 30 ml GT DAILY PRN PRN PRN Reason: Constipation Nystatin (Mycostatin Powder) 1 applic TOPICAL TID [facility]; Protocol Last Admin: 11/22/19 05:28 Dose: 1 applicatio Documented by: Ondansetron HCl (Zofran) 4 mg IV Q8H PRN PRN PRN Reason: NAUSEA/VOMITING Last Admin: 11/20/19 03:47 Dose: 4 mg Documented by: Polyethylene Glycol (Miralax) 17 gm GT DAILY PRN PRN PRN Reason: Constipation Prochlorperazine Edisylate (Compazine Iv) 5 mg IV Q4H PRN PRN PRN Reason: Breakthrough Nausea/Vomiting Last Admin: 11/20/19 05:22 Dose: 5 mg Documented by: Promethazine HCl (Phenergan) 6.25 mg IV Q6H PRN PRN PRN Reason: NAUSEA/VOMITING Last Admin: 11/20/19 06:46 Dose: 6.25 mg Documented by: Senna (Senokot) 2 tablet GT BID [facility] Last Admin: 11/22/19 10:16 Dose: 2 tablet Documented by: Sodium Chloride ([place] Nasal [place]) 4 spray NASAL Q4H [facility] Last Admin: 11/22/19 10:13 Dose: 4 spray Documented by: Sodium Chloride () 10 - 40 ml IV UD PRN PRN Reason: SALINE FLUSH Last Admin: 11/21/19 06:53 Dose: 20 ml Documented by: Sodium Chloride (Sodium Chl 15 Ml) 5 ml INHALATION Q5M PRN PRN Reason: Suctioning Thiamine HCl (Vitamin B1) 100 mg GT DAILY [facility] Last Admin: 11/22/19 10:12 Dose: 100 mg Documented by: Throat Lozenges (Cepacol Sore Throat Lozenge) 1 lozenge MUCOUS MEM Q2H PRN PRN PRN Reason: SORE THROAT Trazodone HCl (Desyrel) 100 mg GT QHS PRN PRN PRN Reason: INSOMNIA Medical Necessity - Tobacco Use Smoking Status: Never smoker Tobacco Use: Non-smoker Assessment/Plan All Active Problems (Last Updated 10/20/19 @ 11:12 by Dayana Gibson) Septic shock (Acute) Aspiration pneumonia (Acute) UTI (urinary tract infection) (Acute) Atrial fibrillation with RVR (Acute) Nasal bone fractures (Acute) Rhabdomyolysis (Acute) Alcohol withdrawal seizure (Acute) Hyponatremia (Acute) Traumatic rhabdomyolysis (Acute) Anemia (Acute) Acute kidney injury (Resolved) Multiple rib fractures (Acute) Pneumonia (Resolved) Pulmonary contusion (Acute) Acute alcoholic hepatitis (Resolved) Alcohol intoxication (Resolved) Alcohol withdrawal (Resolved) History of subdural hematoma (Resolved) Hyponatremia (Resolved) Non-union of fracture (Resolved) 1. Hyponatremia due to beer potomania, sepsis syndrome. Sodium improved to 131. 2. sepsis syndrome, aspiration pna s/p intubation 3. Acute rhabdomyolysis from fall, trauma. 4. Alcohol abuse, intoxication. 5
--- NOTE | 2019-11-22 12:57 | PN_ITS ---
Patient Problems: Active and Suspected Problems (Last Updated 10/20/19 @ 11:12 by Dayana Gibson) Septic shock (Acute) Aspiration pneumonia (Acute) UTI (urinary tract infection) (Acute) Atrial fibrillation with RVR (Acute) Nasal bone fractures (Acute) Rhabdomyolysis (Acute) Alcohol withdrawal seizure (Acute) Reason for Visit: septic shock Subjective: Still on vent. Pressors weaned off. Vitals/I&O's: Vital Signs Temp Pulse Resp BP Pulse Ox 38.3 C H 82 14 104/66 94 11/22/19 12:00 11/22/19 12:00 11/22/19 12:00 11/22/19 12:00 11/22/19 12:00 Oxygen Flow Rate (L/min) 30 Oxygen Delivery Method Mechanical Ventilator Weight: 133.8 kg Body Mass Index (BMI) 44.0 Intake and Output for Last 24 Hours 11/20/19 11/21/19 11/22/19 23:59 23:59 23:59 Intake Total 4009.18 / 4533.48 5778.09 / 5821.14 2652.58 / 2652.58 Output Total 892 / 922 612 / 612 265 / 265 Balance 3117.18 / 3611.48 5166.09 / 5209.14 2387.58 / 2387.58 General: Alert, No apparent distress, - - on ventilator HEENT: Atraumatic, Normocephalic Neck: No Nodes, Thyroid Normal Size and Texture Lungs: - - coarse breath sounds Cardiovascular: Regular rate, Regular Rhythm, Normal S1, Normal S2, No murmurs Abdomen: Bowel Sounds Present, Soft, Non Tender, Non-Distended, No Hepato- splenomegaly Extremities: No edema, No Calf Tenderness Skin: No rashes, No breakdown Musculoskeletal: No Tenderness to Palpation of Joints or Extremities, No Muscle Wasting Psych/Mental Status: Normal Affect, Appropriate Microbiology Past 72 Hours 11/21/19 19:30 Sputum, Induced/Lukens Gram Stain - Final 11/21/19 19:30 Sputum, Induced/Lukens Respiratory Culture - Preliminary Culture exhibits no growth. 11/20/19 11:00 Sputum, Induced/Lukens Gram Stain - Final 11/20/19 11:00 Sputum, Induced/Lukens Respiratory Culture - Final Presumptive C albicans 11/17/19 06:30 Blood Culture (Wb) - Anticubital Right Blood Culture - Final No growth in 5 days. 11/17/19 06:50 Blood Culture (Wb) - Left Wrist Blood Culture - Final No growth in 5 days. Laboratory Results 11/22/19 04:05: WBC 11.5 H, RBC 3.93 L, Hgb 10.6 L, Hct 34.2 L, MCV 87.0, MCH 27.0, MCHC 31.0 L, RDW Std Deviation 51.1 H, RDW Coeff of Cecil 16.3 H, Plt Count 156, MPV 9.2, Neut % (Auto) Not Reportable, Absolute Neuts (auto) 9.8 H, Absolute Lymphs (auto) 1.50, Total Counted 100, Neutrophils % (Manual) 61, Band Neutrophils % 24 H, Lymphocytes % (Manual) 13 L, Monocytes % (Manual) 2, Metamyelocytes % 5 H, Diff Path Review June, Platelet Estimate ADEQUATE, RBC Morphology N CYTIC, Hypochromasia RARE 11/22/19 04:05: Sodium 131 L, Potassium 3.2 L, Chloride 98, Carbon Dioxide 26.0, Anion Gap 7, BUN 7, Creatinine 0.60, Estim Creat Clear Calc 99.39, Est GFR (MDRD) Af Amer 132, Est GFR (MDRD) Non-Af 109, BUN/Creatinine Ratio 11.7, Glucose 148 H, Calcium 7.4 L, Total Bilirubin 0.40, AST 29, ALT 28, Alkaline Phosphatase 90, Total Creatine Kinase 187, Total Protein 5.3 L, Albumin 1.7 L, Globulin 3.6, Albumin/Globulin Ratio 0.5 L 11/22/19 04:05: Phosphorus 2.0 L, Magnesium 1.7 Current Medications Acetaminophen (Tylenol) 650 mg RECTAL Q4H PRN PRN PRN Reason: Pain Score 1-10/Temp > 100.7 F Acetaminophen (Tylenol Liquid) 650 mg GT Q6H PRN PRN PRN Reason: Pain Score 1-10/10/FEVER Last Admin: 11/22/19 02:47 Dose: 650 mg Documented by: Al Hydroxide/Mg Hydroxide (Mylanta Ii) 30 ml GT Q6H PRN PRN PRN Reason: Gastric Burning Albuterol Sulfate (Ventolin Aerosols) 2.5 mg INHALATION Q2H PRN PRN PRN Reason: Dyspnea, wheezing Amiodarone HCl (Cordarone) 200 mg GT BID [facility] Last Admin: 11/22/19 10:11 Dose: 200 mg Documented by: Aspirin (Aspirin, Baby) 81 mg GT DAILY [facility] Last Admin: 11/22/19 10:13 Dose: 81 mg Documented by: Atorvastatin Calcium (Lipitor) 20 mg GT QHS [facility] Last Admin: 11/21/19 21:13 Dose: 20 mg Documented by: Bupropion HCl (Wellbutrin Tablets) 75 mg GT BID [facility] Last Admin: 11/22/19 10:12 Dose: 75 mg Documented by: Calamine/Phenol (Calmoseptine Ointment) 1 applic TOPICAL 4X/DAY [facility]; Protocol Last Admin: 11/22/19 10:13 Dose: 1 applic Documented by: Chlorhexidine Gluconate () 15 ml PO BID [facility] Last Admin: 11/22/19 10:17 Dose: 15 ml Documented by: Dicyclomine HCl (Bentyl) 20 mg GT Q6H PRN PRN PRN Reason: abdominal discomfort Emollient Ointment (Eucerin Intensive Repair) 1 applic TOPICAL QHS [facility]; Protocol Last Admin: 11/21/19 21:16 Dose: 1 applicatio Documented by: Enoxaparin Sodium (Lovenox) 40 mg SC DAILY [facility] Last Admin: 11/22/19 10:12 Dose: 40 mg Documented by: Famotidine (Pepcid) 20 mg GT BID [facility] Last Admin: 11/22/19 10:13 Dose: 20 mg Documented by: Folic Acid (Folic Acid) 1 mg GT DAILY [facility] Last Admin: 11/22/19 10:12 Dose: 1 mg Documented by: Gabapentin (Neurontin) 300 mg GT Q8H PRN PRN PRN Reason: moderate to severe anxiety Guaifenesin (Robitussin) 10 ml GT Q6H [facility] Last Admin: 11/22/19 10:11 Dose: 10 ml Documented by: Hydroxyzine Pamoate (Vistaril Pamoate Capsule) 50 mg GT Q4H PRN PRN PRN Reason: mild anxiety Sodium Chloride () 250 mls @ 15 mls/hr IV .[id number] PRN PRN Reason: Saline Flush Last Infusion: 11/22/19 05:26 Dose: 0 mls/hr Documented by: Sodium Chloride () 250 mls @ 15 mls/hr IV .[id number] PRN PRN Reason: Additional IVPB Infusion Last Infusion: 11/21/19 12:29 Dose: Infused Documented by: Meropenem 1 gm/ Sodium (Chloride) 120 mls @ 33 mls/hr IV Q8 [facility] Stop: 11/24/19 14:01 Last Infusion: 11/22/19 09:10 Dose: Infused Documented by: Fentanyl Citrate 1,000 mcg/ (Sodium Chloride) 100 mls @ 5 mls/hr CONT INF .Q20H [facility]; Protocol Last Titration: 11/22/19 12:00 Dose: 75 mcg/hr, 7.5 mls/hr Documented by: Norepinephrine Bitartrate 8 mg (/ Sodium Chloride) 250 mls @ 9.375 mls/hr CONT INF .[id number] [facility]; Protocol Last Titration: 11/22/19 12:00 Dose: 5 mcg/min, 9.4 mls/hr Documented by: Dexmedetomidine HCl 1,000 mcg/ (Sodium Chloride) 250 mls @ 16.725 mls/hr CONT INF .[id number] [facility]; Protocol Last Titration: 11/22/19 12:00 Dose: 0.8 mcg/kg/hr, 26.8 mls/hr Documented by: Enteral Nutritional Formula (Vital Af 1.2 Matt Liquid) 1,000 mls @ 70 mls/hr GT .[id number] [facility] Last Admin: 11/22/19 00:44 Dose: Not Given Documented by: Potassium Phosphate 30 mm/ (Sodium Chloride) 260 mls @ 42 mls/hr IV X1 ONE Stop: 11/22/19 13:26 Last Admin: 11/22/19 08:44 Dose: 42 mls/hr Documented by: Ibuprofen (Motrin Liquid) 100 mg PO Q8H PRN PRN PRN Reason: fever, pain -12/03 Last Admin: 11/22/19 02:05 Dose: 100 mg Documented by: Levothyroxine Sodium (Synthroid) 50 mcg GT DAILY@0600 [facility] Last Admin: 11/22/19 05:29 Dose: 50 mcg Documented by: Levothyroxine Sodium (Synthroid) 200 mcg GT DAILY@0600 [facility] Last Admin: 11/22/19 05:29 Dose: 200 mcg Documented by: Loperamide HCl (Imodium) 2 mg GT Q4H PRN PRN PRN Reason: LOOSE STOOLS Loratadine (Claritin) 10 mg GT DAILY [facility] Last Admin: 11/22/19 10:12 Dose: 10 mg Documented by: Magnesium Hydroxide (Milk Of Magnesia) 30 ml GT DAILY PRN PRN PRN Reason: Constipation Nystatin (Mycostatin Powder) 1 applic TOPICAL TID [facility]; Protocol Last Admin: 11/22/19 05:28 Dose: 1 applicatio Documented by: Ondansetron HCl (Zofran) 4 mg IV Q8H PRN PRN PRN Reason: NAUSEA/VOMITING Last Admin: 11/20/19 03:47 Dose: 4 mg Documented by: Polyethylene Glycol (Miralax) 17 gm GT DAILY PRN PRN PRN Reason: Constipation Prochlorperazine Edisylate (Compazine Iv) 5 mg IV Q4H PRN PRN PRN Reason: Breakthrough Nausea/Vomiting Last Admin: 11/20/19 05:22 Dose: 5 mg Documented by: Promethazine HCl (Phenergan) 6.25 mg IV Q6H PRN PRN PRN Reason: NAUSEA/VOMITING Last Admin: 11/20/19 06:46 Dose: 6.25 mg Documented by: Senna (Senokot) 2 tablet GT BID [facility] Last Admin: 11/22/19 10:16 Dose: 2 tablet Documented by: Sodium Chloride ([place] Nasal [place]) 4 spray NASAL Q4H [facility] Last Admin: 11/22/19 10:13 Dose: 4 spray Documented by: Sodium Chloride () 10 - 40 ml IV UD PRN PRN Reason: SALINE FLUSH Last Admin: 11/21/19 06:53 Dose: 20 ml Documented by: Sodium Chloride (Sodium Chl 15 Ml) 5 ml INHALATION Q5M PRN PRN Reason: Suctioning Thiamine HCl (Vitamin B1) 100 mg GT DAILY [facility] Last Admin: 11/22/19 10:12 Dose: 100 mg Documented by: Throat Lozenges (Cepacol Sore Throat Lozenge) 1 lozenge MUCOUS MEM Q2H PRN PRN PRN Reason: SORE THROAT Trazodone HCl (Desyrel) 100 mg GT QHS PRN PRN PRN Reason: INSOMNIA STROKE Vital Signs/Narrative: Vital Signs Temp Pulse Resp BP Pulse Ox 11/22/19 12:00 38.3 C H 82 14 104/66 94 11/22/19 11:35 76 11/22/19 11:21 95 76 H 78 11/22/19 11:00 77 14 104/60 94 11/22/19 10:30 80 14 89/64 L 93 11/22/19 10:00 75 14 100/61 95 11/22/19 09:30 75 12 116/70 95 11/22/19 09:15 74 14 125/71 H 97 11/22/19 09:02 13 11/22/19 09:00 70 18 76/42 L 96 Medical Necessity - Tobacco Use Smoking Status: Never smoker Tobacco Use: Non-smoker Assessment/Plan All Active Problems (Last Updated 10/20/19 @ 11:12 by Dayana Gibson) Septic shock (Acute) Aspiration pneumonia (Acute) UTI (urinary tract infection) (Acute) Atrial fibrillation with RVR (Acute) Nasal bone fractures (Acute) Rhabdomyolysis (Acute) Alcohol withdrawal seizure (Acute) Hyponatremia (Acute) Traumatic rhabdomyolysis (Acute) Anemia (Acute) Acute kidney injury (Resolved) Multiple rib fractures (Acute) Pneumonia (Resolved) Pulmonary contusion (Acute) Acute alcoholic hepatitis (Resolved) Alcohol intoxication (Resolved) Alcohol withdrawal (Resolved) History of subdural hematoma (Resolved) Hyponatremia (Resolved) Non-union of fracture (Resolved) 1. septic shock * 2/2 aspiration pneumonia * off pressors 2. acute hypoxic respiratory failure * 2/2 aspiration pneumonia * still on vent * mgmt per CCM 3. acute alcohol withdrawal with possible withdrawal seizure * dexmedetomidine gtt * thiamine and folate 4. aspiration pneumonia * meropenem through 11/23 * pulm toilet 5. pAfib, new onset * cardiology following * amiodarone 6. acute on chronic hyponatremia * improving 7. rhabdomyolysis * likely 2/2 fall and/or seizure * resolved 8. fall with nasal bone fxr * conservative mgmt 9. hypokalemia * replacement provided * [facility] [place] 10. VTE prophylaxis: SCDs, LMWH Inpatient E&M: 01437 Subs Hosp L2
[2019-11-22] MEDS: Vital AF 1.2 Cal Liquid 1,000 ML 70 ML GT (13:00)
[2019-11-22] MEDS: Dexmedetomidine 1,000 mcg in 0.9% NS 240 mL 26.8 MCG CONT INF (13:51)
[2019-11-22 14:16] LABS: Pathologist Review Reviewed
[2019-11-22] MEDS: Albuterol 2.5 MG/3 ML VIAL.NEB. INHALATION ×2 (15:03→22:05)
[2019-11-22] MEDS: Insulin Lispro 100 UNIT/ML INSULN.PEN SC (18:18)
[2019-11-22 18:21] LABS: Bedside Glucose 160 mg/dL (70-110)
[2019-11-22] MEDS: Atorvastatin Calcium 20 MG Tablet GT (19:49)
[2019-11-22] MEDS: Dexmedetomidine 1,000 mcg in 0.9% NS 240 mL 36.8 MCG CONT INF (22:29)
[2019-11-23] VITALS (41 sets, daily range): BP systolic 79–169; BP diastolic 48–118; PULSE 77–119; RESP 13–27; TEMP 37.6–39.1; O2SAT 88–100
[2019-11-23 00:20] LABS: Bedside Glucose 152 mg/dL (70-110)
[2019-11-23] MEDS: Acetaminophen 650 MG/20 ML UDC GT ×2 (00:20→08:34)
[2019-11-23] MEDS: Insulin Lispro 100 UNIT/ML INSULN.PEN SC (00:20)
[2019-11-23] MEDS: Sodium Chloride 0.65% 1 SPRAY SPRAY.BTL 4 SPRAY NASAL ×6 (02:30→21:45)
[2019-11-23] MEDS: Dexmedetomidine 1,000 mcg in 0.9% NS 240 mL 50.2 MCG CONT INF (03:45)
[2019-11-23] MEDS: guaiFENesin 10 ML UDC (200MG/10ML) GT ×2 (04:22→08:30)
[2019-11-23] MEDS: Albuterol 2.5 MG/3 ML VIAL.NEB. INHALATION ×3 (04:25→22:17)
[2019-11-23 04:38] LABS: Absolute Lymphocyte Count 0.87 X10^3/uL (0.83-4.51); Absolute Neutrophil Count 8.2 X10^3/uL (2.0-7.7); Basophil# 0.03 X10^3/uL; Basophil% 0.3 % (0-1); Eosinophil# 0.62 X10^3/uL; Eosinophils% 5.5 % (0-5); Hematocrit 32.9 % (37-47); Hemoglobin 10.5 g/dL (12.0-15.0); Lymphocyte # 0.87 X10^3/ul (4.0); Lymphocyte % 7.8 % (19-41); Mean Corp Hgb Conc 31.9 g/dL (32-36); Mean Corpuscular Hgb 27.6 pg (27.0-32.0); Mean Corpuscular Volume 86.6 fL (81-99); Mean Platelet Vol. 9.8 fl (6.2-12.0); Monocyte# 1.35 X10^3/uL; NRBC Flagged by Analyzer 0 % (0-5); Neutrophil # 8.23 X10^3/uL (2.7-7.7); Neutrophil % 73.3 % (47-70); POSITIVE MORPHOLOGY YES; Platelet Count 193 K/mm3 (150-450); RBC Distribution Width CV 16.6 % (11.6-14.6); RBC Distribution Width SD 52.1 fl (35.1-43.9); White Blood Count 11.2 K/mm3 (4.4-11.0)
[2019-11-23 04:40] LABS: Differential Indicated SCAN CRITERIA MET
[2019-11-23 04:51] LABS: ALB/GLOB Ratio 0.4 RATIO (0.9-2.4); AST(SGOT) 31 U/L (15-37); Alanine Aminotransfer ALT/SGPT 28 U/L (13-56); Albumin, Serum 1.7 g/dL (3.2-5.0); Alkaline Phosphatase 435 U/L (45-117); Anion Gap 5 (5-15); BUN 7 mg/dL (7-18); BUN/Creat Ratio 11.1 RATIO (10-20); Calcium,Total 7.7 mg/dL (8.5-10.1); Chloride 99 mmol/L (98-107); Creatinine, Serum 0.63 mg/dL (0.55-1.02); Differential Comment SCANNED; EST Glomerular Filtration Rate 103 mL/min (>60); Est Glom Filt Rate - Afr Amer 125 mL/min (>60); Estimated Creatinine Clearance 94.65 ml/min; Globulin 3.9 g/dL (2.2-4.2); Glucose 162 mg/dL (74-106); Potassium 3.6 mmol/L (3.5-5.1); Protein, Total 5.6 g/dL (6.4-8.2); Sodium Level 131 mmol/L (136-145)
[2019-11-23 06:11] LABS: Allen Test Positive; Base Excess -1 mmol/L (-2 to +2); Bicarbonate 24.4 mmol/L (22-26); Blood Gas Specimen Type ART; FI02 30; Mode CPAP/PS; O2 Delivery Device Adult Vent; PO2 65 mmHG (75-100); SITE R Radial; SO2 92 % (95-99); Total Carbon Dioxide 26 mmol/L; pH 7.37 (7.35-7.45)
[2019-11-23] MEDS: Nystatin Powder 15gm Bottle 1 APPLIC TOPICAL ×3 (06:28→21:45)
[2019-11-23] MEDS: Levothyroxine 100 MCG Tablet 200 MCG GT (06:29)
[2019-11-23] MEDS: Levothyroxine 50 MCG Tablet GT (06:29)
[2019-11-23] MEDS: Furosemide 40 MG/4 ML Vial IV ×2 (06:30→12:54)
[2019-11-23 06:50] LABS: Bedside Glucose 146 mg/dL (70-110)
--- NOTE | 2019-11-23 07:05 | PCM.PN.INT ---
Subjective: Patient did well overnight. Patient was able to pass a spontaneous breathing trial and nursing/respiratory reporting better endotracheal secretions. However, on my examination patient had significant wheezing with lower extremity edema. Patient has remained on Levophed. Patient is also been febrile consistently. Patient did require increased Precedex secondary to agitation. Patient was tolerating tube feeds prior to spontaneous breathing trial. General: Alert, Cooperative, No apparent distress, - - Morbidly obese HEENT: PERRLA, EOMI, Normocephalic, - - Signs of trauma unchanged compared to previous Oral: Moist Mucosa, No Gingival or Mucosal Lesions/ Ulcerations, - - Crowded posterior pharynx Neck: Supple, No Nodes, Trachea Midline Lungs: No rhonchi, Diminished, Wheezes - Bilateral Cardiovascular: Regular rate, Regular Rhythm, Normal S1, Normal S2, No murmurs, No rub noted, No Gallop Abdomen: Bowel Sounds Present, Soft, Non Tender, Non-Distended, Obese Extremities: No clubbing, No cyanosis, Edema - 3+ lower extremity Skin: - - No change compared to previous Musculoskeletal: No Tenderness to Palpation of Joints or Extremities Lymphatic: No Cervical, Supraclavicular, or Inguinal Adenopathy Neurological: Cranial nerves II-XII grossly intact, Neuro grossly intact, Motor Exam 5/5 strength throughout Psych/Mental Status: Flat Affect Vital Signs Temp Pulse Resp BP Pulse Ox 39.1 C H 86 27 H 96/58 L 90 11/23/19 06:00 11/23/19 06:47 11/23/19 06:47 11/23/19 06:00 11/23/19 06:47 Oxygen Flow Rate (L/min) 30 Oxygen Delivery Method Mechanical Ventilator Weight: 135.2 kg Body Mass Index (BMI) 44.0 Intake and Output for Last 24 Hours 11/21/19 11/22/19 11/23/19 23:59 23:59 23:59 Intake Total 5778.09 / 5821.14 3791.49 / 3967.12 1310.62 / 1310.62 Output Total 612 / 612 585 / 645 190 / 190 Balance 5166.09 / 5209.14 3206.49 / 3322.12 1120.62 / 1120.62 Labs (Last 48 Hours) 11/22/19 11/22/19 11/22/19 04:05 04:05 04:05 WBC 11.5 H RBC 3.93 L Hgb 10.6 L Hct 34.2 L MCV 87.0 MCH 27.0 MCHC 31.0 L RDW Std Deviation 51.1 H RDW Coeff of Cecil 16.3 H Plt Count 156 MPV 9.2 Immature Gran % (Auto) Neut % (Auto) Not Reportable Lymph % (Auto) [place] % (Auto) Eos % (Auto) Baso % (Auto) Absolute Neuts (auto) 9.8 H Absolute Lymphs (auto) 1.50 Total Counted 100 Neutrophils % (Manual) 61 Band Neutrophils % 24 H Lymphocytes % (Manual) 13 L Monocytes % (Manual) 2 Metamyelocytes % 5 H Nucleated RBC % Differential Comment Diff Path Review Reviewed Platelet Estimate ADEQUATE RBC Morphology N CYTIC Hypochromasia RARE Specimen Type Sample Site pH Bicarbonate Actual Total CO2 Base Excess O2 Saturation O2 % ABG pCO2 ABG pO2 Thomas Test O2 Delivery Device Vent Mode Sodium 131 L Potassium 3.2 L Chloride 98 Carbon Dioxide 26.0 Anion Gap 7 BUN 7 Creatinine 0.60 Estim Creat Clear Calc 99.39 Est GFR (MDRD) Af Amer 132 Est GFR (MDRD) Non-Af 109 BUN/Creatinine Ratio 11.7 Glucose 148 H Calcium 7.4 L Phosphorus 2.0 L Magnesium 1.7 Total Bilirubin 0.40 AST 29 ALT 28 Alkaline Phosphatase 90 Total Creatine Kinase 187 Total Protein 5.3 L Albumin 1.7 L Globulin 3.6 Albumin/Globulin Ratio 0.5 L POC Glucose 11/22/19 11/23/19 11/23/19 18:15 00:10 03:45 WBC 11.2 H RBC 3.80 L Hgb 10.5 L Hct 32.9 L MCV 86.6 MCH 27.6 MCHC 31.9 L RDW Std Deviation 52.1 H RDW Coeff of Cecil 16.6 H Plt Count 193 MPV 9.8 Immature Gran % (Auto) 1.100 H Neut % (Auto) 73.3 H Lymph % (Auto) 7.8 L [place] % (Auto) 12.0 H Eos % (Auto) 5.5 H Baso % (Auto) 0.3 Absolute Neuts (auto) 8.2 H Absolute Lymphs (auto) 0.87 Total Counted Neutrophils % (Manual) Band Neutrophils % Lymphocytes % (Manual) Monocytes % (Manual) Metamyelocytes % Nucleated RBC % 0 Differential Comment SCANNED Diff Path Review Platelet Estimate RBC Morphology Hypochromasia Specimen Type Sample Site pH Bicarbonate Actual Total CO2 Base Excess O2 Saturation O2 % ABG pCO2 ABG pO2 Thomas Test O2 Delivery Device Vent Mode Sodium Potassium Chloride Carbon Dioxide Anion Gap BUN Creatinine Estim Creat Clear Calc Est GFR (MDRD) Af Amer Est GFR (MDRD) Non-Af BUN/Creatinine Ratio Glucose Calcium Phosphorus Magnesium Total Bilirubin AST ALT Alkaline Phosphatase Total Creatine Kinase Total Protein Albumin Globulin Albumin/Globulin Ratio POC Glucose 160 H 152 H 11/23/19 11/23/19 11/23/19 03:45 06:04 06:39 WBC RBC Hgb Hct MCV MCH MCHC RDW Std Deviation RDW Coeff of Cecil Plt Count MPV Immature Gran % (Auto) Neut % (Auto) Lymph % (Auto) [place] % (Auto) Eos % (Auto) Baso % (Auto) Absolute Neuts (auto) Absolute Lymphs (auto) Total Counted Neutrophils % (Manual) Band Neutrophils % Lymphocytes % (Manual) Monocytes % (Manual) Metamyelocytes % Nucleated RBC % Differential Comment Diff Path Review Platelet Estimate RBC Morphology Hypochromasia Specimen Type ART Sample Site R Radial pH 7.37 Bicarbonate Actual 24.4 Total CO2 26 Base Excess -1 O2 Saturation 92 L O2 % 30 ABG pCO2 42.0 ABG pO2 65 L Thomas Test Positive O2 Delivery Device Adult Vent Vent Mode CPAP/PS Sodium 131 L Potassium 3.6 Chloride 99 Carbon Dioxide 27.0 Anion Gap 5 BUN 7 Creatinine 0.63 Estim Creat Clear Calc 94.65 Est GFR (MDRD) Af Amer 125 Est GFR (MDRD) Non-Af 103 BUN/Creatinine Ratio 11.1 Glucose 162 H Calcium 7.7 L Phosphorus Magnesium Total Bilirubin 0.50 AST 31 ALT 28 Alkaline Phosphatase 435 H Total Creatine Kinase Total Protein 5.6 L Albumin 1.7 L Globulin 3.9 Albumin/Globulin Ratio 0.4 L POC Glucose 146 H Microbiology 11/21/19 19:30 Sputum, Induced/Lukens Gram Stain - Final 11/21/19 19:30 Sputum, Induced/Lukens Respiratory Culture - Preliminary Culture exhibits no growth. 11/20/19 11:00 Sputum, Induced/Lukens Gram Stain - Final 11/20/19 11:00 Sputum, Induced/Lukens Respiratory Culture - Final Presumptive C albicans 11/17/19 06:30 Blood Culture (Wb) - Anticubital Right Blood Culture - Final No growth in 5 days. 11/17/19 06:50 Blood Culture (Wb) - Left Wrist Blood Culture - Final No growth in 5 days. Medical Necessity - Tobacco Use Smoking Status: Never smoker Tobacco Use: Non-smoker Assessment/Plan All Active Problems (Last Updated 10/20/19 @ 11:12 by Dayana Gibson) Septic shock (Acute) Aspiration pneumonia (Acute) UTI (urinary tract infection) (Acute) Atrial fibrillation with RVR (Acute) Nasal bone fractures (Acute) Rhabdomyolysis (Acute) Alcohol withdrawal seizure (Acute) Hyponatremia (Acute) Traumatic rhabdomyolysis (Acute) Anemia (Acute) Acute kidney injury (Resolved) Multiple rib fractures (Acute) Pneumonia (Resolved) Pulmonary contusion (Acute) Acute alcoholic hepatitis (Resolved) Alcohol intoxication (Resolved) Alcohol withdrawal (Resolved) History of subdural hematoma (Resolved) Hyponatremia (Resolved) Non-union of fracture (Resolved) RECOMMENDATIONS: 1. Reasonable to continue antibiotics to complete a 5-day course following aspiration 2. Continue Levophed if needed to maintain a mean arterial pressure at or above 65 mmHg. 3. Likely discontinue fentanyl and Precedex following extubation 4. Dose with Lasix and reevaluate later this morning 5. Increase activity as tolerated 6. Continue to wean FiO2 as tolerated. 7. Continue appropriate ICU prophylaxis. IMPRESSIONS: 1. Acute hypoxemic respiratory failure Appears to be precipitated by large emesis with witnessed aspiration, leading to respiratory decompensation. The patient did have to be emergently intubated prior to transfer to the ICU. She has stabilized at this time with invasive mechanical ventilatory support. We will continue broad-spectrum antimicrobial therapy. Patient with persistent febrile, but secretions are improving and there is no leukocytosis. Clinical suspicion for drug fever secondary to Precedex therapy. Patient wheezing on exam with significant lower extremity edema. We will dose with Lasix despite need for pressors. Anticipate extubation later today. 2. Septic shock The patient was initially admitted to the hospital with septic shock and was treated for a right lower lobe pneumonia and Klebsiella urinary tract infection. She improved clinically and was hemodynamically stable. However, on the morning of November 19 the patient had to be emergently intubated after a witnessed aspiration event. She subsequently went on to develop hypotension and new onset fevers. Eventually, low-dose Levophed had to be started to maintain hemodynamic stability. Will attempt extubation and discontinuation of Precedex and fentanyl. Continue to monitor pressors. 3. Hyponatremia/hypochloremia/hypophosphatemia Likely secondary to beer potomania and intravascular volume depletion. The patient is currently being volume resuscitated, with slow improvement in sodium level noted. Hold IV hydration secondary to third spacing. Continue tube feeds. Continue aggressive electrolyte repletion. 4. New onset atrial fibrillation with RVR/history of PFO Resolved. Continue rate/rhythm control strategy per cardiology recommendations. The patient does have a history of a PFO, but her history of recurrent falls would likely preclude her from consideration for systemic anticoagulation. 5. Longstanding history of alcoholism Continue CIWA protocol and monitor for alcohol withdrawal symptoms. Continue thiamine and folate. 6. Depression/hypothyroidism/obesity Complicates care, management, recovery and prognosis. Continue home medications as indicated. Physical therapy to work with the patient. TIME: 38 minutes of critical care time, inclusive of procedures, was spent addressing the patient's acute hypoxemic respiratory failure, septic shock, encephalopathy, hyponatremia, atrial fibrillation, alcoholism, review of all data and collaboration with the care team. (5:30 AM to 7:10 AM) [id number]: [id number] Critical care first hour
--- NOTE | 2019-11-23 07:26 | PCM.PN.CARD ---
Subjectve: Patient seen and evaluated. Appears to be doing well. Still intubated. Objective: Vital Signs Temp Pulse Resp BP Pulse Ox 102.1 F H 85 21 H 115/75 93 11/23/19 07:00 11/23/19 07:00 11/23/19 07:00 11/23/19 07:00 11/23/19 07:00 Oxygen Flow Rate (L/min) 30 Oxygen Delivery Method Mechanical Ventilator Weight: 298 lb 1.039 oz Body Mass Index (BMI) 44.0 Intake and Output for Last 24 Hours 11/21/19 11/22/19 11/23/19 23:59 23:59 23:59 Intake Total 5778.09 / 5821.14 3791.49 / 3967.12 1366.42 / 1366.42 Output Total 612 / 612 585 / 645 190 / 190 Balance 5166.09 / 5209.14 3206.49 / 3322.12 1176.42 / 1176.42 General: Awake, Alert, Oriented x 3 HEENT: PERRL, EOMI, Sclera Non Icteric Neck: Supple, Good ROM, No Lymph Node Enlargement Lungs: Clear to auscultation Cardiovascular: Regular Rhythm, Normal S1, Normal S2, No Murmurs, No Rubs, No Gallops 11/23/19 03:45: WBC 11.2 H, RBC 3.80 L, Hgb 10.5 L, Hct 32.9 L, MCV 86.6, MCH 27.6, MCHC 31.9 L, Plt Count 193, MPV 9.8, Immature Gran % (Auto) 1.100 H, Neut % (Auto) 73.3 H, Lymph % (Auto) 7.8 L, [place] % (Auto) 12.0 H, Eos % (Auto) 5.5 H, Baso % (Auto) 0.3, Absolute Neuts (auto) 8.2 H, Nucleated RBC % 0 11/23/19 03:45: Sodium 131 L, Potassium 3.6, Chloride 99, Carbon Dioxide 27.0, Anion Gap 5, BUN 7, Creatinine 0.63, Est GFR (MDRD) Af Amer 125, Est GFR (MDRD) Non-Af 103, BUN/Creatinine Ratio 11.1, Glucose 162 H, Calcium 7.7 L, Total Bilirubin 0.50 11/23/19 06:04: pH 7.37, Bicarbonate Actual 24.4, Base Excess -1, O2 Saturation 92 L, ABG pCO2 42.0, ABG pO2 65 L, Thomas Test Positive Rhythm: EKG: ECHO: Stress Test: Cardiac Cath: PCI: CT Surgery: Holter monitor: EPS: PPM: CXR: Chest CT Scan: Medical Necessity - Tobacco Use Smoking Status: Never smoker Tobacco Use: Non-smoker Assessment/Plan 1. Atrial fibrillation Above likely secondary to sepsis. The above is being treated. At this time I would recommend we continue the beta-john as well as the amiodarone. Would recommend continuing amiodarone dose to 200 mg twice a day. Echocardiogram demonstrated preserved left ventricular systolic function. Will follow with you peripherally. Thank you for allowing me to participate in the care of your patient. Please don't hesitate to call if any issues arise.
[2019-11-23] MEDS: Aspirin 81 MG TAB.CHEW GT (08:29)
[2019-11-23] MEDS: Thiamine Hydrochloride 100 MG Tablet GT (08:29)
[2019-11-23] MEDS: Folic Acid 1 MG Tablet GT (08:29)
[2019-11-23] MEDS: Amiodarone 200 MG Tablet GT (08:29)
[2019-11-23] MEDS: buPROPion 75 MG Tablet GT (08:29)
[2019-11-23] MEDS: Famotidine 20 MG Tablet GT (08:29)
[2019-11-23] MEDS: Loratadine 10 MG Tablet GT (08:29)
[2019-11-23] MEDS: Senna Tablet 2 TABLET GT (08:29)
[2019-11-23] MEDS: Enoxaparin 40 MG/0.4 ML Syringe SC (08:30)
[2019-11-23] MEDS: Menthol/Lanolin/Calamine/Znox 113 GM Tube 1 APPLIC TOPICAL ×4 (08:30→21:44)
--- NOTE | 2019-11-23 09:16 | PCM.PN.REN ---
Patient Problems: Active and Suspected Problems (Last Updated 10/20/19 @ 11:12 by Dayana Gibson) Septic shock (Acute) Aspiration pneumonia (Acute) UTI (urinary tract infection) (Acute) Atrial fibrillation with RVR (Acute) Nasal bone fractures (Acute) Rhabdomyolysis (Acute) Alcohol withdrawal seizure (Acute) Subjective: remains on vent, awake. TF on hold. - Physical Exam Vitals/I&O's: Vital Signs Temp Pulse Resp BP Pulse Ox 102 F H 80 16 125/76 H 96 11/23/19 08:00 11/23/19 08:00 11/23/19 08:00 11/23/19 08:00 11/23/19 08:00 Oxygen Flow Rate (L/min) 30 Oxygen Delivery Method Mechanical Ventilator Weight: 135.2 kg Body Mass Index (BMI) 44.0 Intake and Output for Last 24 Hours 11/21/19 11/22/19 11/23/19 23:59 23:59 23:59 Intake Total 5778.09 / 5821.14 3791.49 / 3967.12 1422.22 / 1422.22 Output Total 612 / 612 585 / 645 1490 / 1490 Balance 5166.09 / 5209.14 3206.49 / 3322.12 -67.78 / -67.78 General: Alert, Oriented x3 Lungs: Clear to auscultation, - - on vent Cardiovascular: Regular rate Abdomen: Bowel Sounds Present, Soft, Non Tender, Obese Extremities: Edema - mild Psych/Mental Status: - - on vent Microbiology Past 72 Hours 11/21/19 19:30 Sputum, Induced/Lukens Gram Stain - Final 11/21/19 19:30 Sputum, Induced/Lukens Respiratory Culture - Preliminary Presumptive C albicans 11/21/19 06:40 Blood Culture (Wb) - Anticubital Right Blood Culture - Preliminary No growth in 48 hours. 11/21/19 06:45 Blood Culture (Wb) - Port Blood Culture - Preliminary No growth in 48 hours. 11/20/19 11:00 Sputum, Induced/Lukens Gram Stain - Final 11/20/19 11:00 Sputum, Induced/Lukens Respiratory Culture - Final Presumptive C albicans 11/17/19 06:30 Blood Culture (Wb) - Anticubital Right Blood Culture - Final No growth in 5 days. 11/17/19 06:50 Blood Culture (Wb) - Left Wrist Blood Culture - Final No growth in 5 days. Laboratory Results 11/22/19 04:05: Diff Path Review Reviewed 11/22/19 18:15: POC Glucose 160 H 11/23/19 00:10: POC Glucose 152 H 11/23/19 03:45: WBC 11.2 H, RBC 3.80 L, Hgb 10.5 L, Hct 32.9 L, MCV 86.6, MCH 27.6, MCHC 31.9 L, RDW Std Deviation 52.1 H, RDW Coeff of Cecil 16.6 H, Plt Count 193, MPV 9.8, Immature Gran % (Auto) 1.100 H, Neut % (Auto) 73.3 H, Lymph % (Auto) 7.8 L, [place] % (Auto) 12.0 H, Eos % (Auto) 5.5 H, Baso % (Auto) 0.3, Absolute Neuts (auto) 8.2 H, Absolute Lymphs (auto) 0.87, Nucleated RBC % 0, Differential Comment SCANNED 11/23/19 03:45: Sodium 131 L, Potassium 3.6, Chloride 99, Carbon Dioxide 27.0, Anion Gap 5, BUN 7, Creatinine 0.63, Estim Creat Clear Calc 94.65, Est GFR (MDRD) Af Amer 125, Est GFR (MDRD) Non-Af 103, BUN/Creatinine Ratio 11.1, Glucose 162 H, Calcium 7.7 L, Total Bilirubin 0.50, AST 31, ALT 28, Alkaline Phosphatase 435 H, Total Protein 5.6 L, Albumin 1.7 L, Globulin 3.9, Albumin/Globulin Ratio 0.4 L 11/23/19 06:04: Specimen Type ART, Sample Site R Radial, pH 7.37, Bicarbonate Actual 24.4, Total CO2 26, Base Excess -1, O2 Saturation 92 L, O2 % 30, ABG pCO2 42.0, ABG pO2 65 L, Thomas Test Positive, O2 Delivery Device Adult Vent, Vent Mode CPAP/PS 11/23/19 06:39: POC Glucose 146 H Current Medications Acetaminophen (Tylenol) 650 mg RECTAL Q4H PRN PRN PRN Reason: Pain Score 1-10/Temp > 100.7 F Acetaminophen (Tylenol Liquid) 650 mg GT Q6H PRN PRN PRN Reason: Pain Score 1-10/10/FEVER Last Admin: 11/23/19 08:34 Dose: 650 mg Documented by: Al Hydroxide/Mg Hydroxide (Mylanta Ii) 30 ml GT Q6H PRN PRN PRN Reason: Gastric Burning Albuterol Sulfate (Ventolin Aerosols) 2.5 mg INHALATION Q2H PRN PRN PRN Reason: Dyspnea, wheezing Last Admin: 11/23/19 06:13 Dose: 2.5 mg Documented by: Amiodarone HCl (Cordarone) 200 mg GT BID [facility] Last Admin: 11/23/19 08:29 Dose: 200 mg Documented by: Aspirin (Aspirin, Baby) 81 mg GT DAILY [facility] Last Admin: 11/23/19 08:29 Dose: 81 mg Documented by: Atorvastatin Calcium (Lipitor) 20 mg GT QHS [facility] Last Admin: 11/22/19 19:49 Dose: 20 mg Documented by: Bupropion HCl (Wellbutrin Tablets) 75 mg GT BID [facility] Last Admin: 11/23/19 08:29 Dose: 75 mg Documented by: Calamine/Phenol (Calmoseptine Ointment) 1 applic TOPICAL 4X/DAY [facility]; Protocol Last Admin: 11/23/19 08:30 Dose: 1 applic Documented by: Chlorhexidine Gluconate () 15 ml PO BID [facility] Last Admin: 11/22/19 19:46 Dose: 15 ml Documented by: Dicyclomine HCl (Bentyl) 20 mg GT Q6H PRN PRN PRN Reason: abdominal discomfort Emollient Ointment (Eucerin Intensive Repair) 1 applic TOPICAL QHS [facility]; Protocol Last Admin: 11/22/19 19:48 Dose: 1 applicatio Documented by: Enoxaparin Sodium (Lovenox) 40 mg SC DAILY [facility] Last Admin: 11/23/19 08:30 Dose: 40 mg Documented by: Famotidine (Pepcid) 20 mg GT BID [facility] Last Admin: 11/23/19 08:29 Dose: 20 mg Documented by: Folic Acid (Folic Acid) 1 mg GT DAILY [facility] Last Admin: 11/23/19 08:29 Dose: 1 mg Documented by: Gabapentin (Neurontin) 300 mg GT Q8H PRN PRN PRN Reason: moderate to severe anxiety Guaifenesin (Robitussin) 10 ml GT Q6H [facility] Last Admin: 11/23/19 08:30 Dose: 10 ml Documented by: Hydroxyzine Pamoate (Vistaril Pamoate Capsule) 50 mg GT Q4H PRN PRN PRN Reason: mild anxiety Sodium Chloride () 250 mls @ 15 mls/hr IV .[id number] PRN PRN Reason: Saline Flush Last Infusion: 11/22/19 05:26 Dose: 0 mls/hr Documented by: Sodium Chloride () 250 mls @ 15 mls/hr IV .[id number] PRN PRN Reason: Additional IVPB Infusion Last Infusion: 11/21/19 12:29 Dose: Infused Documented by: Meropenem 1 gm/ Sodium (Chloride) 120 mls @ 33 mls/hr IV Q8 [facility] Stop: 11/24/19 14:01 Last Admin: 11/23/19 06:27 Dose: 33 mls/hr Documented by: Fentanyl Citrate 1,000 mcg/ (Sodium Chloride) 100 mls @ 5 mls/hr CONT INF .Q20H [facility]; Protocol Last Titration: 11/23/19 08:00 Dose: 0 mcg/hr, 0 mls/hr Documented by: Norepinephrine Bitartrate 8 mg (/ Sodium Chloride) 250 mls @ 9.375 mls/hr CONT INF .[id number] [facility]; Protocol Last Titration: 11/23/19 08:00 Dose: 3 mcg/min, 5.6 mls/hr Documented by: Dexmedetomidine HCl 1,000 mcg/ (Sodium Chloride) 250 mls @ 16.725 mls/hr CONT INF .[id number] [facility]; Protocol Last Titration: 11/23/19 08:00 Dose: 1.5 mcg/kg/hr, 50.2 mls/hr Documented by: Enteral Nutritional Formula (Vital Af 1.2 Matt Liquid) 1,000 mls @ 70 mls/hr GT .[id number] [facility]KE Last Admin: 11/23/19 05:11 Dose: Not Given Documented by: Ibuprofen (Motrin Liquid) 100 mg PO Q8H PRN PRN PRN Reason: fever, pain 1-12/03 Last Admin: 11/22/19 13:52 Dose: 100 mg Documented by: Insulin Human Lispro (Humalog Kwikpen (Bkc)) 0 unit SC Q6 [facility]; Protocol Last Admin: 11/23/19 06:41 Dose: Not Given Documented by: Levothyroxine Sodium (Synthroid) 50 mcg GT DAILY@0600 [facility] Last Admin: 11/23/19 06:29 Dose: 50 mcg Documented by: Levothyroxine Sodium (Synthroid) 200 mcg GT DAILY@0600 [facility] Last Admin: 11/23/19 06:29 Dose: 200 mcg Documented by: Loperamide HCl (Imodium) 2 mg GT Q4H PRN PRN PRN Reason: LOOSE STOOLS Loratadine (Claritin) 10 mg GT DAILY [facility] Last Admin: 11/23/19 08:29 Dose: 10 mg Documented by: Magnesium Hydroxide (Milk Of Magnesia) 30 ml GT DAILY PRN PRN PRN Reason: Constipation Nystatin (Mycostatin Powder) 1 applic TOPICAL TID [facility]; Protocol Last Admin: 11/23/19 06:28 Dose: 1 applicatio Documented by: Ondansetron HCl (Zofran) 4 mg IV Q8H PRN PRN PRN Reason: NAUSEA/VOMITING Last Admin: 11/20/19 03:47 Dose: 4 mg Documented by: Polyethylene Glycol (Miralax) 17 gm GT DAILY PRN PRN PRN Reason: Constipation Prochlorperazine Edisylate (Compazine Iv) 5 mg IV Q4H PRN PRN PRN Reason: Breakthrough Nausea/Vomiting Last Admin: 11/20/19 05:22 Dose: 5 mg Documented by: Promethazine HCl (Phenergan) 6.25 mg IV Q6H PRN PRN PRN Reason: NAUSEA/VOMITING Last Admin: 11/20/19 06:46 Dose: 6.25 mg Documented by: Bridgett (Senokot) 2 tablet GT BID [facility] Last Admin: 11/23/19 08:29 Dose: 2 tablet Documented by: Sodium Chloride ([place] Nasal [place]) 4 spray NASAL Q4H [facility] Last Admin: 11/23/19 08:30 Dose: 4 spray Documented by: Sodium Chloride () 10 - 40 ml IV UD PRN PRN Reason: SALINE FLUSH Last Admin: 11/21/19 06:53 Dose: 20 ml Documented by: Sodium Chloride (Sodium Chl 15 Ml) 5 ml INHALATION Q5M PRN PRN Reason: Suctioning Thiamine HCl (Vitamin B1) 100 mg GT DAILY [facility] Last Admin: 11/23/19 08:29 Dose: 100 mg Documented by: Throat Lozenges (Cepacol Sore Throat Lozenge) 1 lozenge MUCOUS MEM Q2H PRN PRN PRN Reason: SORE THROAT Trazodone HCl (Desyrel) 100 mg GT QHS PRN PRN PRN Reason: INSOMNIA Medical Necessity - Tobacco Use Smoking Status: Never smoker Tobacco Use: Non-smoker Assessment/Plan All Active Problems (Last Updated 10/20/19 @ 11:12 by Dayana Gibson) Septic shock (Acute) Aspiration pneumonia (Acute) UTI (urinary tract infection) (Acute) Atrial fibrillation with RVR (Acute) Nasal bone fractures (Acute) Rhabdomyolysis (Acute) Alcohol withdrawal seizure (Acute) Hyponatremia (Acute) Traumatic rhabdomyolysis (Acute) Anemia (Acute) Acute kidney injury (Resolved) Multiple rib fractures (Acute) Pneumonia (Resolved) Pulmonary contusion (Acute) Acute alcoholic hepatitis (Resolved) Alcohol intoxication (Resolved) Alcohol withdrawal (Resolved) History of subdural hematoma (Resolved) Hyponatremia (Resolved) Non-union of fracture (Resolved) 1. Hyponatremia Sodium unchanged at 131. 2. sepsis syndrome, aspiration pna s/p intubation 3. Acute rhabdomyolysis from fall, trauma. 4. Alcohol abuse, intoxication. 5
[2019-11-23] MEDS: BENZOCAINE/MENTHOL 1 LOZENGE MUCOUS MEM ×2 (10:38→22:55)
--- NOTE | 2019-11-23 10:39 | CASEMGMT ---
RN CM Note: participate in ICU interdisciplinary rounds. Patient extubated this am and placed on 2L NC. Continues on Levophed, attempting to wean. PT/OT working with patient. Nephrology following- Na 131 today, TCK 187 yesterday. Cardiology following-continue beta-john and amiodarone. DC PLAN: SNF placement on dc-[facility] [place] NOLASCON DANAY AC
[2019-11-23 13:06] LABS: Bedside Glucose 139 mg/dL (70-110)
--- NOTE | 2019-11-23 13:41 | PN_ITS ---
Patient Problems: Active and Suspected Problems (Last Updated 10/20/19 @ 11:12 by Dayana Gibson) Septic shock (Acute) Aspiration pneumonia (Acute) UTI (urinary tract infection) (Acute) Atrial fibrillation with RVR (Acute) Nasal bone fractures (Acute) Rhabdomyolysis (Acute) Alcohol withdrawal seizure (Acute) Reason for Visit: septic shock Subjective: Extubated today. Breathing better. Difficulty coughing. Vitals/I&O's: Vital Signs Temp Pulse Resp BP Pulse Ox 37.7 C H 84 18 96/52 L 99 11/23/19 12:00 11/23/19 12:00 11/23/19 12:00 11/23/19 12:00 11/23/19 12:00 Oxygen Flow Rate (L/min) 2 Oxygen Delivery Method Nasal Cannula Weight: 135.2 kg Body Mass Index (BMI) 44.0 Intake and Output for Last 24 Hours 11/21/19 11/22/19 11/23/19 23:59 23:59 23:59 Intake Total 5778.09 / 5821.14 3791.49 / 3967.12 1788.87 / 1788.87 Output Total 612 / 612 585 / 645 2990 / 2990 Balance 5166.09 / 5209.14 3206.49 / 3322.12 -1201.13 / -1201.13 HEENT: Atraumatic, Normocephalic Oral: Moist Mucosa, No Gingival or Mucosal Lesions/ Ulcerations Neck: No Nodes, Thyroid Normal Size and Texture Lungs: Normal air movement, - - coarse breath sounds Cardiovascular: Regular rate, Regular Rhythm, Normal S1, Normal S2, No murmurs Abdomen: Bowel Sounds Present, Soft, Non Tender, Non-Distended, No Hepato- splenomegaly Extremities: No edema, No Calf Tenderness Microbiology Past 72 Hours 11/21/19 19:30 Sputum, Induced/Lukens Gram Stain - Final 11/21/19 19:30 Sputum, Induced/Lukens Respiratory Culture - Preliminary Presumptive C albicans 11/21/19 06:40 Blood Culture (Wb) - Anticubital Right Blood Culture - Preliminary No growth in 48 hours. 11/21/19 06:45 Blood Culture (Wb) - Port Blood Culture - Preliminary No growth in 48 hours. 11/20/19 11:00 Sputum, Induced/Lukens Gram Stain - Final 11/20/19 11:00 Sputum, Induced/Lukens Respiratory Culture - Final Presumptive C albicans 11/17/19 06:30 Blood Culture (Wb) - Anticubital Right Blood Culture - Final No growth in 5 days. 11/17/19 06:50 Blood Culture (Wb) - Left Wrist Blood Culture - Final No growth in 5 days. Laboratory Results 11/22/19 04:05: Diff Path Review Reviewed 11/22/19 18:15: POC Glucose 160 H 11/23/19 00:10: POC Glucose 152 H 11/23/19 03:45: WBC 11.2 H, RBC 3.80 L, Hgb 10.5 L, Hct 32.9 L, MCV 86.6, MCH 27.6, MCHC 31.9 L, RDW Std Deviation 52.1 H, RDW Coeff of Cecil 16.6 H, Plt Count 193, MPV 9.8, Immature Gran % (Auto) 1.100 H, Neut % (Auto) 73.3 H, Lymph % (Auto) 7.8 L, [place] % (Auto) 12.0 H, Eos % (Auto) 5.5 H, Baso % (Auto) 0.3, Absolute Neuts (auto) 8.2 H, Absolute Lymphs (auto) 0.87, Nucleated RBC % 0, Differential Comment SCANNED 11/23/19 03:45: Sodium 131 L, Potassium 3.6, Chloride 99, Carbon Dioxide 27.0, Anion Gap 5, BUN 7, Creatinine 0.63, Estim Creat Clear Calc 94.65, Est GFR (MDRD) Af Amer 125, Est GFR (MDRD) Non-Af 103, BUN/Creatinine Ratio 11.1, Glucose 162 H, Calcium 7.7 L, Total Bilirubin 0.50, AST 31, ALT 28, Alkaline Phosphatase 435 H, Total Protein 5.6 L, Albumin 1.7 L, Globulin 3.9, Albumin/Globulin Ratio 0.4 L 11/23/19 06:04: Specimen Type ART, Sample Site R Radial, pH 7.37, Bicarbonate Actual 24.4, Total CO2 26, Base Excess -1, O2 Saturation 92 L, O2 % 30, ABG pCO2 42.0, ABG pO2 65 L, Thomas Test Positive, O2 Delivery Device Adult Vent, Vent Mode CPAP/PS 11/23/19 06:39: POC Glucose 146 H 11/23/19 12:52: POC Glucose 139 H Current Medications Acetaminophen (Tylenol) 650 mg RECTAL Q4H PRN PRN PRN Reason: Pain Score 1-10/Temp > 100.7 F Acetaminophen (Tylenol Liquid) 650 mg GT Q6H PRN PRN PRN Reason: Pain Score 1-10/10/FEVER Last Admin: 11/23/19 08:34 Dose: 650 mg Documented by: Al Hydroxide/Mg Hydroxide (Mylanta Ii) 30 ml GT Q6H PRN PRN PRN Reason: Gastric Burning Albuterol Sulfate (Ventolin Aerosols) 2.5 mg INHALATION Q2H PRN PRN PRN Reason: Dyspnea, wheezing Last Admin: 11/23/19 06:13 Dose: 2.5 mg Documented by: Amiodarone HCl (Cordarone) 200 mg GT BID [facility] Last Admin: 11/23/19 08:29 Dose: 200 mg Documented by: Aspirin (Aspirin, Baby) 81 mg GT DAILY [facility] Last Admin: 11/23/19 08:29 Dose: 81 mg Documented by: Atorvastatin Calcium (Lipitor) 20 mg GT QHS [facility] Last Admin: 11/22/19 19:49 Dose: 20 mg Documented by: Bupropion HCl (Wellbutrin Tablets) 75 mg GT BID [facility] Last Admin: 11/23/19 08:29 Dose: 75 mg Documented by: Calamine/Phenol (Calmoseptine Ointment) 1 applic TOPICAL 4X/DAY [facility]; Protocol Last Admin: 11/23/19 12:53 Dose: 1 applic Documented by: Dicyclomine HCl (Bentyl) 20 mg GT Q6H PRN PRN PRN Reason: abdominal discomfort Emollient Ointment (Eucerin Intensive Repair) 1 applic TOPICAL QHS [facility]; Protocol Last Admin: 11/22/19 19:48 Dose: 1 applicatio Documented by: Enoxaparin Sodium (Lovenox) 40 mg SC DAILY [facility] Last Admin: 11/23/19 08:30 Dose: 40 mg Documented by: Famotidine (Pepcid) 20 mg GT BID [facility] Last Admin: 11/23/19 08:29 Dose: 20 mg Documented by: Folic Acid (Folic Acid) 1 mg GT DAILY [facility] Last Admin: 11/23/19 08:29 Dose: 1 mg Documented by: Furosemide (Lasix) 40 mg IV X1 ONE Stop: 11/23/19 14:01 Last Admin: 11/23/19 12:54 Dose: 40 mg Documented by: Gabapentin (Neurontin) 300 mg GT Q8H PRN PRN PRN Reason: moderate to severe anxiety Guaifenesin (Robitussin) 10 ml GT Q6H MIKE Last Admin: 11/23/19 08:30 Dose: 10 ml Documented by: Hydroxyzine Pamoate (Vistaril Pamoate Capsule) 50 mg GT Q4H PRN PRN PRN Reason: mild anxiety Sodium Chloride () 250 mls @ 15 mls/hr IV .[id number] PRN PRN Reason: Saline Flush Last Infusion: 11/23/19 09:54 Dose: 15 mls/hr Documented by: Sodium Chloride () 250 mls @ 15 mls/hr IV .[id number] PRN PRN Reason: Additional IVPB Infusion Last Infusion: 11/21/19 12:29 Dose: Infused Documented by: Meropenem 1 gm/ Sodium (Chloride) 120 mls @ 33 mls/hr IV Q8 MIKE Stop: 11/24/19 14:01 Last Admin: 11/23/19 12:54 Dose: 33 mls/hr Documented by: Norepinephrine Bitartrate 8 mg (/ Sodium Chloride) 250 mls @ 9.375 mls/hr CONT INF .[id number] MIKE; Protocol Last Titration: 11/23/19 11:15 Dose: 2 mcg/min, 3.8 mls/hr Documented by: Ibuprofen (Motrin Liquid) 100 mg PO Q8H PRN PRN PRN Reason: fever, pain -12/03 Last Admin: 11/22/19 13:52 Dose: 100 mg Documented by: Insulin Human Lispro (Humalog Kwikpen (Bkc)) 0 unit SC Q6 [facility]; Protocol Last Admin: 11/23/19 12:53 Dose: Not Given Documented by: Levothyroxine Sodium (Synthroid) 50 mcg GT DAILY@0600 [facility] Last Admin: 11/23/19 06:29 Dose: 50 mcg Documented by: Levothyroxine Sodium (Synthroid) 200 mcg GT DAILY@0600 [facility] Last Admin: 11/23/19 06:29 Dose: 200 mcg Documented by: Loperamide HCl (Imodium) 2 mg GT Q4H PRN PRN PRN Reason: LOOSE STOOLS Loratadine (Claritin) 10 mg GT DAILY [facility] Last Admin: 11/23/19 08:29 Dose: 10 mg Documented by: Magnesium Hydroxide (Milk Of Magnesia) 30 ml GT DAILY PRN PRN PRN Reason: Constipation Nystatin (Mycostatin Powder) 1 applic TOPICAL TID [facility]; Protocol Last Admin: 11/23/19 12:54 Dose: 1 applicatio Documented by: Ondansetron HCl (Zofran) 4 mg IV Q8H PRN PRN PRN Reason: NAUSEA/VOMITING Last Admin: 11/20/19 03:47 Dose: 4 mg Documented by: Polyethylene Glycol (Miralax) 17 gm GT DAILY PRN PRN PRN Reason: Constipation Prochlorperazine Edisylate (Compazine Iv) 5 mg IV Q4H PRN PRN PRN Reason: Breakthrough Nausea/Vomiting Last Admin: 11/20/19 05:22 Dose: 5 mg Documented by: Promethazine HCl (Phenergan) 6.25 mg IV Q6H PRN PRN PRN Reason: NAUSEA/VOMITING Last Admin: 11/20/19 06:46 Dose: 6.25 mg Documented by: Senna (Senokot) 2 tablet GT BID [facility] Last Admin: 11/23/19 08:29 Dose: 2 tablet Documented by: Sodium Chloride ([place] Nasal [place]) 4 spray NASAL Q4H [facility] Last Admin: 11/23/19 12:53 Dose: 4 spray Documented by: Sodium Chloride () 10 - 40 ml IV UD PRN PRN Reason: SALINE FLUSH Last Admin: 11/21/19 06:53 Dose: 20 ml Documented by: Sodium Chloride (Sodium Chl 15 Ml) 5 ml INHALATION Q5M PRN PRN Reason: Suctioning Thiamine HCl (Vitamin B1) 100 mg GT DAILY [facility] Last Admin: 11/23/19 08:29 Dose: 100 mg Documented by: Throat Lozenges (Cepacol Sore Throat Lozenge) 1 lozenge MUCOUS MEM Q2H PRN PRN PRN Reason: SORE THROAT Last Admin: 11/23/19 10:38 Dose: 1 lozenge Documented by: Trazodone HCl (Desyrel) 100 mg GT QHS PRN PRN PRN Reason: INSOMNIA STROKE Vital Signs/Narrative: Vital Signs Temp Pulse Resp BP Pulse Ox 11/23/19 12:00 37.7 C H 84 18 96/52 L 99 11/23/19 11:34 82 11/23/19 11:15 84 101/64 11/23/19 11:00 79 17 91/51 L 99 11/23/19 10:45 78 89/53 L 11/23/19 10:30 77 86/57 L 11/23/19 10:15 80 79/48 L 11/23/19 10:00 38.7 C H 85 21 H 122/53 H 98 11/23/19 09:55 98 11/23/19 09:53 93 Medical Necessity - Tobacco Use Smoking Status: Never smoker Tobacco Use: Non-smoker Assessment/Plan All Active Problems (Last Updated 10/20/19 @ 11:12 by Dayana Gibson) Septic shock (Acute) Aspiration pneumonia (Acute) UTI (urinary tract infection) (Acute) Atrial fibrillation with RVR (Acute) Nasal bone fractures (Acute) Rhabdomyolysis (Acute) Alcohol withdrawal seizure (Acute) Hyponatremia (Acute) Traumatic rhabdomyolysis (Acute) Anemia (Acute) Acute kidney injury (Resolved) Multiple rib fractures (Acute) Pneumonia (Resolved) Pulmonary contusion (Acute) Acute alcoholic hepatitis (Resolved) Alcohol intoxication (Resolved) Alcohol withdrawal (Resolved) History of subdural hematoma (Resolved) Hyponatremia (Resolved) Non-union of fracture (Resolved) 1. septic shock * 2/2 aspiration pneumonia * off pressors 2. acute hypoxic respiratory failure * extubated 11/22 * 2/2 aspiration pneumonia 3. acute alcohol withdrawal with possible withdrawal seizure * dexmedetomidine gtt * thiamine and folate 4. aspiration pneumonia * meropenem through 11/23 * pulm toilet 5. pAfib, new onset * cardiology following * amiodarone 6. acute on chronic hyponatremia * improving 7. rhabdomyolysis * likely 2/2 fall and/or seizure * resolved 8. fall with nasal bone fxr * conservative mgmt 9. hypokalemia * replacement provided 10. VTE prophylaxis: SCDs, LMWH Inpatient E&M: [id number] Subs Hosp L2
[2019-11-23] MEDS: 0.9% Saline Lock 10 ML Syringe IV ×2 (17:28→23:14)
[2019-11-23 17:40] LABS: Bedside Glucose 126 mg/dL (70-110)
[2019-11-23 23:06] LABS: Bedside Glucose 119 mg/dL (70-110)
[2019-11-23] MEDS: proMETHazine 25 MG/ML Syringe 6.25 MG IV (23:14)
[2019-11-24] VITALS (25 sets, daily range): BP systolic 114–166; BP diastolic 59–101; PULSE 105–117; RESP 16–23; TEMP 36.4–37.9; O2SAT 93–100
[2019-11-24] MEDS: Sodium Chloride 0.65% 1 SPRAY SPRAY.BTL 4 SPRAY NASAL ×6 (02:17→21:01)
[2019-11-24 04:00] LABS: Absolute Lymphocyte Count 1.11 X10^3/uL (0.83-4.51); Absolute Neutrophil Count 9.5 X10^3/uL (2.0-7.7); Basophil# 0.05 X10^3/uL; Basophil% 0.4 % (0-1); Eosinophil# 0.28 X10^3/uL; Eosinophils% 2.3 % (0-5); Hematocrit 34.4 % (37-47); Hemoglobin 10.9 g/dL (12.0-15.0); Lymphocyte # 1.11 X10^3/ul (4.0); Lymphocyte % 9.1 % (19-41); Mean Corp Hgb Conc 31.7 g/dL (32-36); Mean Corpuscular Hgb 27.5 pg (27.0-32.0); Mean Corpuscular Volume 86.6 fL (81-99); Mean Platelet Vol. 8.9 fl (6.2-12.0); Monocyte# 1.09 X10^3/uL; NRBC Flagged by Analyzer 0 % (0-5); Neutrophil # 9.48 X10^3/uL (2.7-7.7); Neutrophil % 78.1 % (47-70); POSITIVE MORPHOLOGY YES; Platelet Count 228 K/mm3 (150-450); RBC Distribution Width CV 16.8 % (11.6-14.6); RBC Distribution Width SD 52.7 fl (35.1-43.9); Red Blood Count 3.97 M/mm3 (4.2-5.4); White Blood Count 12.1 K/mm3 (4.4-11.0)
[2019-11-24 04:01] LABS: Differential Indicated SCAN CRITERIA MET
[2019-11-24 04:14] LABS: Anion Gap 3 (5-15); BUN 3 mg/dL (7-18); BUN/Creat Ratio 8.3 RATIO (10-20); Calcium,Total 7.7 mg/dL (8.5-10.1); Chloride 98 mmol/L (98-107); Creatinine, Serum 0.36 mg/dL (0.55-1.02); EST Glomerular Filtration Rate 195 mL/min (>60); Est Glom Filt Rate - Afr Amer 236 mL/min (>60); Estimated Creatinine Clearance 165.65 ml/min; Glucose 114 mg/dL (74-106); Potassium 3.2 mmol/L (3.5-5.1); Sodium Level 134 mmol/L (136-145)
[2019-11-24 04:29] LABS: Differential Comment SCANNED
[2019-11-24 04:30] LABS: Hypochromasia RARE
[2019-11-24] MEDS: Albuterol 2.5 MG/3 ML VIAL.NEB. INHALATION (05:01)
[2019-11-24] MEDS: Nystatin Powder 15gm Bottle 1 APPLIC TOPICAL ×3 (05:07→21:01)
[2019-11-24] MEDS: 0.9% Saline Lock 10 ML Syringe IV (05:07)
[2019-11-24 05:16] LABS: Bedside Glucose 122 mg/dL (70-110)
--- NOTE | 2019-11-24 06:28 | PCM.PN.INT ---
Subjective: Patient did okay overnight. Patient did fail swallow evaluation yesterday. Patient continues to report a sore throat, but reportedly had good response to aerosol therapy overnight. Patient did have significant diuresis yesterday. General: Alert, Oriented x3, Cooperative, No apparent distress, - - Morbidly obese. Hoarseness is improving. HEENT: PERRLA, EOMI, Normocephalic, - - Ecchymotic areas are healing well Oral: Moist Mucosa, No Gingival or Mucosal Lesions/ Ulcerations, - - Crowded posterior pharynx Neck: Supple, No JVD, No Nodes, Trachea Midline Lungs: No rhonchi, No rales, Diminished, Wheezes, - - Symmetric expansion. Cardiovascular: Normal S1, Normal S2, No murmurs, No rub noted, No Gallop, Tachycardic Abdomen: Bowel Sounds Present, Soft, Non Tender, Non-Distended, Obese Extremities: No clubbing, No cyanosis, Edema - 2+ lower extremity Skin: - - Ecchymotic areas improving. Otherwise unchanged. Musculoskeletal: No Tenderness to Palpation of Joints or Extremities Lymphatic: No Cervical, Supraclavicular, or Inguinal Adenopathy Neurological: Cranial nerves II-XII grossly intact, Neuro grossly intact, Motor Exam 5/5 strength throughout Psych/Mental Status: Alert and oriented to time, place, person, mood and affect Vital Signs Temp Pulse Resp BP Pulse Ox 37.8 C H 109 H 19 H 142/68 H 98 11/24/19 04:00 11/24/19 06:00 11/24/19 06:00 11/24/19 06:00 11/24/19 06:00 Oxygen Flow Rate (L/min) 2 Oxygen Delivery Method Nasal Cannula Weight: 129.3 kg Body Mass Index (BMI) 44.0 Intake and Output for Last 24 Hours 11/22/19 11/23/19 11/24/19 23:59 23:59 23:59 Intake Total 3791.49 / 3967.12 / 120 / 120 Output Total 585 / 645 6415 / 6415 550 / 550 Balance 3206.49 / 3322.12 -4419.73 / -4419.73 -430 / -430 Labs (Last 48 Hours) 11/22/19 11/22/19 11/23/19 04:05 18:15 00:10 WBC RBC Hgb Hct MCV MCH MCHC RDW Std Deviation RDW Coeff of Cecil Plt Count MPV Immature Gran % (Auto) Neut % (Auto) Lymph % (Auto) [place] % (Auto) Eos % (Auto) Baso % (Auto) Absolute Neuts (auto) Absolute Lymphs (auto) Nucleated RBC % Differential Comment Diff Path Review Reviewed Hypochromasia Specimen Type Sample Site pH Bicarbonate Actual Total CO2 Base Excess O2 Saturation O2 % ABG pCO2 ABG pO2 Thomas Test O2 Delivery Device Vent Mode Sodium Potassium Chloride Carbon Dioxide Anion Gap BUN Creatinine Estim Creat Clear Calc Est GFR (MDRD) Af Amer Est GFR (MDRD) Non-Af BUN/Creatinine Ratio Glucose Calcium Total Bilirubin AST ALT Alkaline Phosphatase Total Protein Albumin Globulin Albumin/Globulin Ratio POC Glucose 160 H 152 H 11/23/19 11/23/19 11/23/19 03:45 03:45 06:04 WBC 11.2 H RBC 3.80 L Hgb 10.5 L Hct 32.9 L MCV 86.6 MCH 27.6 MCHC 31.9 L RDW Std Deviation 52.1 H RDW Coeff of Cecil 16.6 H Plt Count 193 MPV 9.8 Immature Gran % (Auto) 1.100 H Neut % (Auto) 73.3 H Lymph % (Auto) 7.8 L [place] % (Auto) 12.0 H Eos % (Auto) 5.5 H Baso % (Auto) 0.3 Absolute Neuts (auto) 8.2 H Absolute Lymphs (auto) 0.87 Nucleated RBC % 0 Differential Comment SCANNED Diff Path Review Hypochromasia Specimen Type ART Sample Site R Radial pH 7.37 Bicarbonate Actual 24.4 Total CO2 26 Base Excess -1 O2 Saturation 92 L O2 % 30 ABG pCO2 42.0 ABG pO2 65 L Htomas Test Positive O2 Delivery Device Adult Vent Vent Mode CPAP/PS Sodium 131 L Potassium 3.6 Chloride 99 Carbon Dioxide 27.0 Anion Gap 5 BUN 7 Creatinine 0.63 Estim Creat Clear Calc 94.65 Est GFR (MDRD) Af Amer 125 Est GFR (MDRD) Non-Af 103 BUN/Creatinine Ratio 11.1 Glucose 162 H Calcium 7.7 L Total Bilirubin 0.50 AST 31 ALT 28 Alkaline Phosphatase 435 H Total Protein 5.6 L Albumin 1.7 L Globulin 3.9 Albumin/Globulin Ratio 0.4 L POC Glucose 11/23/19 11/23/19 11/23/19 06:39 12:52 17:21 WBC RBC Hgb Hct MCV MCH MCHC RDW Std Deviation RDW Coeff of Cecil Plt Count MPV Immature Gran % (Auto) Neut % (Auto) Lymph % (Auto) [place] % (Auto) Eos % (Auto) Baso % (Auto) Absolute Neuts (auto) Absolute Lymphs (auto) Nucleated RBC % Differential Comment Diff Path Review Hypochromasia Specimen Type Sample Site pH Bicarbonate Actual Total CO2 Base Excess O2 Saturation O2 % ABG pCO2 ABG pO2 Thomas Test O2 Delivery Device Vent Mode Sodium Potassium Chloride Carbon Dioxide Anion Gap BUN Creatinine Estim Creat Clear Calc Est GFR (MDRD) Af Amer Est GFR (MDRD) Non-Af BUN/Creatinine Ratio Glucose Calcium Total Bilirubin AST ALT Alkaline Phosphatase Total Protein Albumin Globulin Albumin/Globulin Ratio POC Glucose 146 H 139 H 126 H 11/23/19 11/24/19 11/24/19 22:58 03:55 03:55 WBC 12.1 H RBC 3.97 L Hgb 10.9 L Hct 34.4 L MCV 86.6 MCH 27.5 MCHC 31.7 L RDW Std Deviation 52.7 H RDW Coeff of Cecil 16.8 H Plt Count 228 MPV 8.9 Immature Gran % (Auto) 1.100 H Neut % (Auto) 78.1 H Lymph % (Auto) 9.1 L [place] % (Auto) 9.0 Eos % (Auto) 2.3 Baso % (Auto) 0.4 Absolute Neuts (auto) 9.5 H Absolute Lymphs (auto) 1.11 Nucleated RBC % 0 Differential Comment SCANNED Diff Path Review Hypochromasia RARE Specimen Type Sample Site pH Bicarbonate Actual Total CO2 Base Excess O2 Saturation O2 % ABG pCO2 ABG pO2 Thomas Test O2 Delivery Device Vent Mode Sodium 134 L Potassium 3.2 L Chloride 98 Carbon Dioxide 33.0 H Anion Gap 3 L BUN 3 L Creatinine 0.36 L Estim Creat Clear Calc 165.65 Est GFR (MDRD) Af Amer 236 Est GFR (MDRD) Non-Af 195 BUN/Creatinine Ratio 8.3 L Glucose 114 H Calcium 7.7 L Total Bilirubin AST ALT Alkaline Phosphatase Total Protein Albumin Globulin Albumin/Globulin Ratio POC Glucose 119 H 11/24/19 05:06 WBC RBC Hgb Hct MCV MCH MCHC RDW Std Deviation RDW Coeff of Cecil Plt Count MPV Immature Gran % (Auto) Neut % (Auto) Lymph % (Auto) [place] % (Auto) Eos % (Auto) Baso % (Auto) Absolute Neuts (auto) Absolute Lymphs (auto) Nucleated RBC % Differential Comment Diff Path Review Hypochromasia Specimen Type Sample Site pH Bicarbonate Actual Total CO2 Base Excess O2 Saturation O2 % ABG pCO2 ABG pO2 Thomas Test O2 Delivery Device Vent Mode Sodium Potassium Chloride Carbon Dioxide Anion Gap BUN Creatinine Estim Creat Clear Calc Est GFR (MDRD) Af Amer Est GFR (MDRD) Non-Af BUN/Creatinine Ratio Glucose Calcium Total Bilirubin AST ALT Alkaline Phosphatase Total Protein Albumin Globulin Albumin/Globulin Ratio POC Glucose 122 H Microbiology 11/21/19 19:30 Sputum, Induced/Lukens Gram Stain - Final 11/21/19 19:30 Sputum, Induced/Lukens Respiratory Culture - Preliminary Presumptive C albicans 11/21/19 06:40 Blood Culture (Wb) - Anticubital Right Blood Culture - Preliminary No growth in 48 hours. 11/21/19 06:45 Blood Culture (Wb) - Port Blood Culture - Preliminary No growth in 48 hours. 11/20/19 11:00 Sputum, Induced/Lukens Gram Stain - Final 11/20/19 11:00 Sputum, Induced/Lukens Respiratory Culture - Final Presumptive C albicans 11/17/19 06:30 Blood Culture (Wb) - Anticubital Right Blood Culture - Final No growth in 5 days. 11/17/19 06:50 Blood Culture (Wb) - Left Wrist Blood Culture - Final No growth in 5 days. Medical Necessity - Tobacco Use Smoking Status: Never smoker Tobacco Use: Non-smoker Assessment/Plan All Active Problems (Last Updated 10/20/19 @ 11:12 by Dayana Gibson) Septic shock (Acute) Aspiration pneumonia (Acute) UTI (urinary tract infection) (Acute) Atrial fibrillation with RVR (Acute) Nasal bone fractures (Acute) Rhabdomyolysis (Acute) Alcohol withdrawal seizure (Acute) Hyponatremia (Acute) Traumatic rhabdomyolysis (Acute) Anemia (Acute) Acute kidney injury (Resolved) Multiple rib fractures (Acute) Pneumonia (Resolved) Pulmonary contusion (Acute) Acute alcoholic hepatitis (Resolved) Alcohol intoxication (Resolved) Alcohol withdrawal (Resolved) History of subdural hematoma (Resolved) Hyponatremia (Resolved) Non-union of fracture (Resolved) RECOMMENDATIONS: 1. Reasonable to continue antibiotics to complete a 5-day course following aspiration 2. Evaluate for periodic diuresis 3. Initiate aerosol therapy 4. Increase activity as tolerated 5. Likely okay to discontinue Harp from my perspective 6. Continue to wean FiO2 as tolerated. 7. Continue appropriate ICU prophylaxis. IMPRESSIONS: 1. Acute hypoxemic respiratory failure Appears to be precipitated by large emesis with witnessed aspiration, leading to respiratory decompensation. The patient did have to be emergently intubated prior to transfer to the ICU. She has stabilized at this time with invasive mechanical ventilatory support. We will continue broad-spectrum antimicrobial therapy to complete 5 days. Fever appears to be improving with discontinuation of Precedex. We will continue to monitor. Patient reportedly has had significant improvement following aerosols. Will schedule. Diuretics will be assessed on a as needed basis. 2. Septic shock The patient was initially admitted to the hospital with septic shock and was treated for a right lower lobe pneumonia and Klebsiella urinary tract infection. She improved clinically and was hemodynamically stable. However, on the morning of November 19 the patient had to be emergently intubated after a witnessed aspiration event. She subsequently went on to develop hypotension and new onset fevers. Eventually, low-dose Levophed had to be started to maintain hemodynamic stability. This has been discontinued. Will treat for a total of 5 days with antibiotics for aspiration. 3. Hyponatremia/hypochloremia/hypophosphatemia Likely secondary to beer potomania and intravascular volume depletion. The patient is currently being volume resuscitated, with slow improvement in sodium level noted. Hold IV hydration secondary to third spacing. Await swallow evaluation. Continue aggressive electrolyte repletion. 4. New onset atrial fibrillation with RVR/history of PFO Resolved. Continue rate/rhythm control strategy per cardiology recommendations. The patient does have a history of a PFO, but her history of recurrent falls would likely preclude her from consideration for systemic anticoagulation. 5. Longstanding history of alcoholism Continue CIWA protocol and monitor for alcohol withdrawal symptoms. Continue thiamine and folate. 6. Depression/hypothyroidism/obesity Complicates care, management, recovery and prognosis. Continue home medications as indicated. Physical therapy to work with the patient. Inpatient E&M: [id number] L3
--- NOTE | 2019-11-24 07:35 | PN.CARD_ITS ---
Subjectve: Patient seen. Doing better. Extubated. Objective: Vital Signs Temp Pulse Resp BP Pulse Ox 100.1 F H 109 H 20 H 128/68 H 98 11/24/19 04:00 11/24/19 07:20 11/24/19 07:00 11/24/19 07:00 11/24/19 07:00 Oxygen Flow Rate (L/min) 2 Oxygen Delivery Method Nasal Cannula Weight: 285 lb 0.923 oz Body Mass Index (BMI) 44.0 Intake and Output for Last 24 Hours 11/22/19 11/23/19 11/24/19 23:59 23:59 23:59 Intake Total 3791.49 / 3967.12 1994. / 1994. 120 / 120 Output Total 585 / 645 6415 / 6415 550 / 550 Balance 3206.49 / 3322.12 -4419.73 / -4419.73 -430 / -430 General: Awake, Alert, Oriented x 3 HEENT: PERRL, EOMI, Sclera Non Icteric Neck: Supple, Good ROM, No Lymph Node Enlargement Lungs: Clear to auscultation Cardiovascular: Regular Rhythm, Normal S1, Normal S2, No Murmurs, No Rubs, No Gallops 11/24/19 03:55: WBC 12.1 H, RBC 3.97 L, Hgb 10.9 L, Hct 34.4 L, MCV 86.6, MCH 27.5, MCHC 31.7 L, Plt Count 228, MPV 8.9, Immature Gran % (Auto) 1.100 H, Neut % (Auto) 78.1 H, Lymph % (Auto) 9.1 L, [place] % (Auto) 9.0, Eos % (Auto) 2.3, Baso % (Auto) 0.4, Absolute Neuts (auto) 9.5 H, Nucleated RBC % 0 11/24/19 03:55: Sodium 134 L, Potassium 3.2 L, Chloride 98, Carbon Dioxide 33.0 H, Anion Gap 3 L, BUN 3 L, Creatinine 0.36 L, Est GFR (MDRD) Af Amer 236, Est GFR (MDRD) Non-Af 195, BUN/Creatinine Ratio 8.3 L, Glucose 114 H, Calcium 7.7 L Rhythm: EKG: ECHO: Stress Test: Cardiac Cath: PCI: CT Surgery: Holter monitor: EPS: PPM: CXR: Chest CT Scan: Medical Necessity - Tobacco Use Smoking Status: Never smoker Tobacco Use: Non-smoker Assessment/Plan 1. Atrial fibrillation--currently in sinus rhythm * Above likely secondary to sepsis. The above is being treated. At this time I would recommend we continue the beta-john as well as the amiodarone. * Would recommend continuing amiodarone dose to 200 mg twice a day. * Echocardiogram demonstrated preserved left ventricular systolic function. * Will follow with you peripherally. * * Thank you for allowing me to participate in the care of your patient. Please don't hesitate to call if any issues arise.
[2019-11-24] MEDS: buPROPion 75 MG Tablet PO (10:40)
[2019-11-24] MEDS: Enoxaparin 40 MG/0.4 ML Syringe SC (10:40)
[2019-11-24] MEDS: Amiodarone 200 MG Tablet PO ×2 (10:40→21:02)
[2019-11-24] MEDS: Menthol/Lanolin/Calamine/Znox 113 GM Tube 1 APPLIC TOPICAL ×4 (10:40→21:02)
--- NOTE | 2019-11-24 10:55 | PN_ITS ---
Patient Problems: Active and Suspected Problems (Last Updated 10/20/19 @ 11:12 by Dayana Gibson) Septic shock (Acute) Aspiration pneumonia (Acute) UTI (urinary tract infection) (Acute) Atrial fibrillation with RVR (Acute) Nasal bone fractures (Acute) Rhabdomyolysis (Acute) Alcohol withdrawal seizure (Acute) Reason for Visit: shock Subjective: Speech improved. Still with dysphagia. Vitals/I&O's: Vital Signs Temp Pulse Resp BP Pulse Ox 37.9 C H 111 H 23 H 166/93 H 93 11/24/19 09:00 11/24/19 10:00 11/24/19 10:00 11/24/19 10:00 11/24/19 10:00 Oxygen Flow Rate (L/min) 2 Oxygen Delivery Method Nasal Cannula Weight: 129.3 kg Body Mass Index (BMI) 44.0 Intake and Output for Last 24 Hours 11/22/19 11/23/19 11/24/19 23:59 23:59 23:59 Intake Total 3791.49 / 3967.12 360 / 360 Output Total 585 / 645 6415 / 6415 950 / 950 Balance 3206.49 / 3322.12 -4419.73 / -4419.73 -590 / -590 General: Alert, No apparent distress HEENT: Atraumatic, Normocephalic Oral: Moist Mucosa, No Gingival or Mucosal Lesions/ Ulcerations Neck: No Nodes, Thyroid Normal Size and Texture Lungs: Normal air movement, - - coarse breath sounds Cardiovascular: Regular rate, Regular Rhythm, Normal S1, Normal S2, No murmurs Abdomen: Bowel Sounds Present, Soft, Non Tender, Non-Distended, No Hepato- splenomegaly Extremities: No edema, No Calf Tenderness Skin: No rashes, No breakdown Psych/Mental Status: Normal Affect, Appropriate Microbiology Past 72 Hours 11/21/19 19:30 Sputum, Induced/Lukens Gram Stain - Final 11/21/19 19:30 Sputum, Induced/Lukens Respiratory Culture - Final Presumptive C albicans 11/21/19 06:40 Blood Culture (Wb) - Anticubital Right Blood Culture - Preliminary No growth in 48 hours. 11/21/19 06:45 Blood Culture (Wb) - Port Blood Culture - Preliminary No growth in 48 hours. 11/20/19 11:00 Sputum, Induced/Lukens Gram Stain - Final 11/20/19 11:00 Sputum, Induced/Lukens Respiratory Culture - Final Presumptive C albicans 11/17/19 06:30 Blood Culture (Wb) - Anticubital Right Blood Culture - Final No growth in 5 days. 11/17/19 06:50 Blood Culture (Wb) - Left Wrist Blood Culture - Final No growth in 5 days. Laboratory Results 11/23/19 12:52: POC Glucose 139 H 11/23/19 17:21: POC Glucose 126 H 11/23/19 22:58: POC Glucose 119 H 11/24/19 03:55: WBC 12.1 H, RBC 3.97 L, Hgb 10.9 L, Hct 34.4 L, MCV 86.6, MCH 27.5, MCHC 31.7 L, RDW Std Deviation 52.7 H, RDW Coeff of Cecil 16.8 H, Plt Count 228, MPV 8.9, Immature Gran % (Auto) 1.100 H, Neut % (Auto) 78.1 H, Lymph % (Auto) 9.1 L, [place] % (Auto) 9.0, Eos % (Auto) 2.3, Baso % (Auto) 0.4, Absolute Neuts (auto) 9.5 H, Absolute Lymphs (auto) 1.11, Nucleated RBC % 0, Differential Comment SCANNED, Hypochromasia RARE 11/24/19 03:55: Sodium 134 L, Potassium 3.2 L, Chloride 98, Carbon Dioxide 33.0 H, Anion Gap 3 L, BUN 3 L, Creatinine 0.36 L, Estim Creat Clear Calc 165.65, Est GFR (MDRD) Af Amer 236, Est GFR (MDRD) Non-Af 195, BUN/Creatinine Ratio 8.3 L, Glucose 114 H, Calcium 7.7 L 11/24/19 05:06: POC Glucose 122 H Current Medications Acetaminophen (Tylenol) 650 mg RECTAL Q4H PRN PRN PRN Reason: Pain Score 1-10/Temp > 100.7 F Acetaminophen (Tylenol Liquid) 650 mg PO Q6H PRN PRN PRN Reason: Pain Score 1-10/10/FEVER Al Hydroxide/Mg Hydroxide (Mylanta Ii) 30 ml PO Q6H PRN PRN PRN Reason: Gastric Burning Albuterol Sulfate (Ventolin Aerosols) 2.5 mg INHALATION Q2H PRN PRN PRN Reason: Dyspnea, wheezing Last Admin: 11/24/19 05:01 Dose: 2.5 mg Documented by: Albuterol/Ipratropium (Duoneb) 3 ml INHALATION Q6HWA.RT MIKE Amiodarone HCl (Cordarone) 200 mg PO BID [facility] Last Admin: 11/24/19 10:40 Dose: 200 mg Documented by: Aspirin (Aspirin, Baby) 81 mg PO DAILY [facility] Last Admin: 11/24/19 10:51 Dose: Not Given Documented by: Atorvastatin Calcium (Lipitor) 20 mg PO QHS [facility] Last Admin: 11/23/19 21:36 Dose: Not Given Documented by: Bupropion HCl (Wellbutrin Tablets) 75 mg PO BID [facility] Last Admin: 11/24/19 10:40 Dose: 75 mg Documented by: Calamine/Phenol (Calmoseptine Ointment) 1 applic TOPICAL 4X/DAY [facility]; Protocol Last Admin: 11/24/19 10:40 Dose: 1 applic Documented by: Dicyclomine HCl (Bentyl) 20 mg PO Q6H PRN PRN PRN Reason: abdominal discomfort Emollient Ointment (Eucerin Intensive Repair) 1 applic TOPICAL QHS [facility]; Protocol Last Admin: 11/23/19 21:44 Dose: 1 applicatio Documented by: Enoxaparin Sodium (Lovenox) 40 mg SC DAILY [facility] Last Admin: 11/24/19 10:40 Dose: 40 mg Documented by: Famotidine (Pepcid) 20 mg PO BID [facility] Last Admin: 11/24/19 10:51 Dose: Not Given Documented by: Gabapentin (Neurontin) 300 mg PO Q8H PRN PRN PRN Reason: moderate to severe anxiety Guaifenesin (Robitussin) 10 ml PO Q6H [facility] Last Admin: 11/24/19 09:19 Dose: Not Given Documented by: Hydroxyzine Pamoate (Vistaril Pamoate Capsule) 50 mg PO Q4H PRN PRN PRN Reason: mild anxiety Sodium Chloride () 250 mls @ 15 mls/hr IV .[id number] PRN PRN Reason: Saline Flush Last Infusion: 11/24/19 08:46 Dose: 15 mls/hr Documented by: Sodium Chloride () 250 mls @ 15 mls/hr IV .[id number] PRN PRN Reason: Additional IVPB Infusion Last Infusion: 11/21/19 12:29 Dose: Infused Documented by: Meropenem 1 gm/ Sodium (Chloride) 120 mls @ 33 mls/hr IV Q8 MIKE Stop: 11/24/19 14:01 Last Infusion: 11/24/19 08:46 Dose: Infused Documented by: Ibuprofen (Motrin Liquid) 100 mg PO Q8H PRN PRN PRN Reason: fever, pain -12/03 Last Admin: 11/22/19 13:52 Dose: 100 mg Documented by: Insulin Human Lispro (Humalog Kwikpen (Bkc)) 0 unit SC Q6 [facility]; Protocol Last Admin: 11/24/19 05:07 Dose: Not Given Documented by: Levothyroxine Sodium (Synthroid) 50 mcg PO DAILY@0600 [facility] Last Admin: 11/24/19 04:51 Dose: Not Given Documented by: Levothyroxine Sodium (Synthroid) 200 mcg PO DAILY@0600 [facility] Last Admin: 11/24/19 04:51 Dose: Not Given Documented by: Loperamide HCl (Imodium) 2 mg PO Q4H PRN PRN PRN Reason: LOOSE STOOLS Loratadine (Claritin) 10 mg PO DAILY [facility] Last Admin: 11/24/19 10:51 Dose: Not Given Documented by: Magnesium Hydroxide (Milk Of Magnesia) 30 ml PO DAILY PRN PRN PRN Reason: Constipation Nystatin (Mycostatin Powder) 1 applic TOPICAL TID [facility]; Protocol Last Admin: 11/24/19 10:41 Dose: 1 applicatio Documented by: Ondansetron HCl (Zofran) 4 mg IV Q8H PRN PRN PRN Reason: NAUSEA/VOMITING Last Admin: 11/20/19 03:47 Dose: 4 mg Documented by: Polyethylene Glycol (Miralax) 17 gm PO DAILY PRN PRN PRN Reason: Constipation Prochlorperazine Edisylate (Compazine Iv) 5 mg IV Q4H PRN PRN PRN Reason: Breakthrough Nausea/Vomiting Last Admin: 11/20/19 05:22 Dose: 5 mg Documented by: Promethazine HCl (Phenergan) 6.25 mg IV Q6H PRN PRN PRN Reason: NAUSEA/VOMITING Last Admin: 11/23/19 23:14 Dose: 6.25 mg Documented by: Senna (Senokot) 2 tablet PO BID [facility] Last Admin: 11/24/19 10:41 Dose: Not Given Documented by: Sodium Chloride ([place] Nasal [place]) 4 spray NASAL Q4H [facility] Last Admin: 11/24/19 10:41 Dose: 4 spray Documented by: Sodium Chloride () 10 - 40 ml IV UD PRN PRN Reason: SALINE FLUSH Last Admin: 11/24/19 05:07 Dose: 20 ml Documented by: Sodium Chloride (Sodium Chl 15 Ml) 5 ml INHALATION Q5M PRN PRN Reason: Suctioning Throat Lozenges (Cepacol Sore Throat Lozenge) 1 lozenge MUCOUS MEM Q2H PRN PRN PRN Reason: SORE THROAT Last Admin: 11/23/19 22:55 Dose: 1 lozenge Documented by: Trazodone HCl (Desyrel) 100 mg PO QHS PRN PRN PRN Reason: INSOMNIA STROKE Vital Signs/Narrative: Vital Signs Temp Pulse Resp BP Pulse Ox 11/24/19 10:00 111 H 23 H 166/93 H 93 11/24/19 09:00 37.9 C H 117 H 21 H 117/69 98 11/24/19 08:00 106 H 19 H 131/76 H 99 11/24/19 07:20 109 H 11/24/19 07:03 100 11/24/19 07:00 108 H 20 H 128/68 H 98 Medical Necessity - Tobacco Use Smoking Status: Never smoker Tobacco Use: Non-smoker Assessment/Plan All Active Problems (Last Updated 10/20/19 @ 11:12 by Dayana Gibson) Septic shock (Acute) Aspiration pneumonia (Acute) UTI (urinary tract infection) (Acute) Atrial fibrillation with RVR (Acute) Nasal bone fractures (Acute) Rhabdomyolysis (Acute) Alcohol withdrawal seizure (Acute) Hyponatremia (Acute) Traumatic rhabdomyolysis (Acute) Anemia (Acute) Acute kidney injury (Resolved) Multiple rib fractures (Acute) Pneumonia (Resolved) Pulmonary contusion (Acute) Acute alcoholic hepatitis (Resolved) Alcohol intoxication (Resolved) Alcohol withdrawal (Resolved) History of subdural hematoma (Resolved) Hyponatremia (Resolved) Non-union of fracture (Resolved) 1. septic shock * 2/2 aspiration pneumonia * off pressors 2. acute hypoxic respiratory failure * extubated 11/22 * 2/2 aspiration pneumonia 3. acute alcohol withdrawal with possible withdrawal seizure * dexmedetomidine gtt * thiamine and folate 4. aspiration pneumonia * meropenem through 11/23 * pulm toilet 5. pAfib, new onset * in NSR * cardiology following * amiodarone 200 BID 6. acute on chronic hyponatremia * improving 7. rhabdomyolysis * likely 2/2 fall and/or seizure * resolved 8. fall with nasal bone fxr * conservative mgmt 9. hypokalemia * replacement provided 10. Dysphagia * s/p intubation * NPO * speech therapy 11. VTE prophylaxis: SCDs, LMWH Inpatient E&M: 39560 Subs Hosp L2
[2019-11-24 12:15] LABS: Bedside Glucose 121 mg/dL (70-110)
[2019-11-24] MEDS: Ipratropium/Albuterol Sulfate 3 ML AMPUL.NEB INHALATION ×2 (13:30→18:47)
--- NOTE | 2019-11-24 14:42 | PN.RENAL_ITS ---
Patient Problems: Active and Suspected Problems (Last Updated 10/20/19 @ 11:12 by Dayana Gibson) Septic shock (Acute) Aspiration pneumonia (Acute) UTI (urinary tract infection) (Acute) Atrial fibrillation with RVR (Acute) Nasal bone fractures (Acute) Rhabdomyolysis (Acute) Alcohol withdrawal seizure (Acute) Subjective: transferred to PCU, no shortness of breath. Still NPO for aspiration precautions. sodium improving - Physical Exam Vitals/I&O's: Vital Signs Temp Pulse Resp BP Pulse Ox 97.6 F L 105 H 16 147/74 H 98 11/24/19 13:25 11/24/19 13:30 11/24/19 13:30 11/24/19 13:25 11/24/19 13:25 Oxygen Flow Rate (L/min) 2 Oxygen Delivery Method Nasal Cannula Weight: 129.3 kg Body Mass Index (BMI) 44.0 Intake and Output for Last 24 Hours 11/22/19 11/23/19 11/24/19 23:59 23:59 23:59 Intake Total 3791.49 / 3967.12 423.5 / 423.5 Output Total 585 / 645 6415 / 6415 950 / 950 Balance 3206.49 / 3322.12 -4419.73 / -4419.73 -526.5 / -526.5 General: Alert, Oriented x3 Lungs: Clear to auscultation Cardiovascular: Regular rate Abdomen: Bowel Sounds Present, Soft, Non Tender, Obese Extremities: Edema - mild Psych/Mental Status: Appropriate, Alert and oriented to time, place, person, mood and affect Microbiology Past 72 Hours 11/21/19 19:30 Sputum, Induced/Lukens Gram Stain - Final 11/21/19 19:30 Sputum, Induced/Lukens Respiratory Culture - Final Presumptive C albicans 11/21/19 06:40 Blood Culture (Wb) - Anticubital Right Blood Culture - Preliminary No growth in 48 hours. 11/21/19 06:45 Blood Culture (Wb) - Port Blood Culture - Preliminary No growth in 48 hours. 11/20/19 11:00 Sputum, Induced/Lukens Gram Stain - Final 11/20/19 11:00 Sputum, Induced/Lukens Respiratory Culture - Final Presumptive C albicans 11/17/19 06:30 Blood Culture (Wb) - Anticubital Right Blood Culture - Final No growth in 5 days. 11/17/19 06:50 Blood Culture (Wb) - Left Wrist Blood Culture - Final No growth in 5 days. Laboratory Results 11/23/19 17:21: POC Glucose 126 H 11/23/19 22:58: POC Glucose 119 H 11/24/19 03:55: WBC 12.1 H, RBC 3.97 L, Hgb 10.9 L, Hct 34.4 L, MCV 86.6, MCH 27.5, MCHC 31.7 L, RDW Std Deviation 52.7 H, RDW Coeff of Cecil 16.8 H, Plt Count 228, MPV 8.9, Immature Gran % (Auto) 1.100 H, Neut % (Auto) 78.1 H, Lymph % (Auto) 9.1 L, [place] % (Auto) 9.0, Eos % (Auto) 2.3, Baso % (Auto) 0.4, Absolute Neuts (auto) 9.5 H, Absolute Lymphs (auto) 1.11, Nucleated RBC % 0, Differential Comment SCANNED, Hypochromasia RARE 11/24/19 03:55: Sodium 134 L, Potassium 3.2 L, Chloride 98, Carbon Dioxide 33.0 H, Anion Gap 3 L, BUN 3 L, Creatinine 0.36 L, Estim Creat Clear Calc 165.65, Est GFR (MDRD) Af Amer 236, Est GFR (MDRD) Non-Af 195, BUN/Creatinine Ratio 8.3 L, Glucose 114 H, Calcium 7.7 L 11/24/19 05:06: POC Glucose 122 H 11/24/19 12:09: POC Glucose 121 H Current Medications Acetaminophen (Tylenol) 650 mg RECTAL Q4H PRN PRN PRN Reason: Pain Score 1-10/Temp > 100.7 F Acetaminophen (Tylenol Liquid) 650 mg PO Q6H PRN PRN PRN Reason: Pain Score 1-10/10/FEVER Al Hydroxide/Mg Hydroxide (Mylanta Ii) 30 ml PO Q6H PRN PRN PRN Reason: Gastric Burning Albuterol Sulfate (Ventolin Aerosols) 2.5 mg INHALATION Q2H PRN PRN PRN Reason: Dyspnea, wheezing Last Admin: 11/24/19 05:01 Dose: 2.5 mg Documented by: Albuterol/Ipratropium (Duoneb) 3 ml INHALATION Q6HWA.RT [facility] Last Admin: 11/24/19 13:30 Dose: 3 ml Documented by: Amiodarone HCl (Cordarone) 200 mg PO BID [facility] Last Admin: 11/24/19 10:40 Dose: 200 mg Documented by: Aspirin (Aspirin, Baby) 81 mg PO DAILY [facility] Last Admin: 11/24/19 10:51 Dose: Not Given Documented by: Atorvastatin Calcium (Lipitor) 20 mg PO QHS [facility] Last Admin: 11/23/19 21:36 Dose: Not Given Documented by: Bupropion HCl (Wellbutrin Tablets) 75 mg PO BID [facility] Last Admin: 11/24/19 10:40 Dose: 75 mg Documented by: Calamine/Phenol (Calmoseptine Ointment) 1 applic TOPICAL 4X/DAY [facility]; Protocol Last Admin: 11/24/19 13:35 Dose: 1 applic Documented by: Dicyclomine HCl (Bentyl) 20 mg PO Q6H PRN PRN PRN Reason: abdominal discomfort Emollient Ointment (Eucerin Intensive Repair) 1 applic TOPICAL QHS [facility]; Protocol Last Admin: 11/23/19 21:44 Dose: 1 applicatio Documented by: Enoxaparin Sodium (Lovenox) 40 mg SC DAILY [facility] Last Admin: 11/24/19 10:40 Dose: 40 mg Documented by: Famotidine (Pepcid) 20 mg PO BID [facility] Last Admin: 11/24/19 10:51 Dose: Not Given Documented by: Gabapentin (Neurontin) 300 mg PO Q8H PRN PRN PRN Reason: moderate to severe anxiety Guaifenesin (Robitussin) 10 ml PO Q6H [facility] Last Admin: 11/24/19 12:14 Dose: Not Given Documented by: Hydroxyzine Pamoate (Vistaril Pamoate Capsule) 50 mg PO Q4H PRN PRN PRN Reason: mild anxiety Sodium Chloride () 250 mls @ 15 mls/hr IV .[id number] PRN PRN Reason: Saline Flush Last Infusion: 11/24/19 13:00 Dose: Infused Documented by: Sodium Chloride () 250 mls @ 15 mls/hr IV .[id number] PRN PRN Reason: Additional IVPB Infusion Last Infusion: 11/21/19 12:29 Dose: Infused Documented by: Ibuprofen (Motrin Liquid) 100 mg PO Q8H PRN PRN PRN Reason: fever, pain -12/03 Last Admin: 11/22/19 13:52 Dose: 100 mg Documented by: Insulin Human Lispro (Humalog Kwikpen (Bkc)) 0 unit SC Q6 [facility]; Protocol Last Admin: 11/24/19 12:13 Dose: Not Given Documented by: Levothyroxine Sodium (Synthroid) 50 mcg PO DAILY@0600 [facility] Last Admin: 11/24/19 04:51 Dose: Not Given Documented by: Levothyroxine Sodium (Synthroid) 200 mcg PO DAILY@0600 [facility] Last Admin: 11/24/19 04:51 Dose: Not Given Documented by: Loperamide HCl (Imodium) 2 mg PO Q4H PRN PRN PRN Reason: LOOSE STOOLS Loratadine (Claritin) 10 mg PO DAILY [facility] Last Admin: 11/24/19 10:51 Dose: Not Given Documented by: Magnesium Hydroxide (Milk Of Magnesia) 30 ml PO DAILY PRN PRN PRN Reason: Constipation Nystatin (Mycostatin Powder) 1 applic TOPICAL TID [facility]; Protocol Last Admin: 11/24/19 10:41 Dose: 1 applicatio Documented by: Ondansetron HCl (Zofran) 4 mg IV Q8H PRN PRN PRN Reason: NAUSEA/VOMITING Last Admin: 11/20/19 03:47 Dose: 4 mg Documented by: Polyethylene Glycol (Miralax) 17 gm PO DAILY PRN PRN PRN Reason: Constipation Prochlorperazine Edisylate (Compazine Iv) 5 mg IV Q4H PRN PRN PRN Reason: Breakthrough Nausea/Vomiting Last Admin: 11/20/19 05:22 Dose: 5 mg Documented by: Promethazine HCl (Phenergan) 6.25 mg IV Q6H PRN PRN PRN Reason: NAUSEA/VOMITING Last Admin: 11/23/19 23:14 Dose: 6.25 mg Documented by: Senna (Senokot) 2 tablet PO BID [facility] Last Admin: 11/24/19 10:41 Dose: Not Given Documented by: Sodium Chloride ([place] Nasal [place]) 4 spray NASAL Q4H [facility] Last Admin: 11/24/19 13:36 Dose: 4 spray Documented by: Sodium Chloride () 10 - 40 ml IV UD PRN PRN Reason: SALINE FLUSH Last Admin: 11/24/19 05:07 Dose: 20 ml Documented by: Sodium Chloride (Sodium Chl 15 Ml) 5 ml INHALATION Q5M PRN PRN Reason: Suctioning Throat Lozenges (Cepacol Sore Throat Lozenge) 1 lozenge MUCOUS MEM Q2H PRN PRN PRN Reason: SORE THROAT Last Admin: 11/23/19 22:55 Dose: 1 lozenge Documented by: Trazodone HCl (Desyrel) 100 mg PO QHS PRN PRN PRN Reason: INSOMNIA Medical Necessity - Tobacco Use Smoking Status: Never smoker Tobacco Use: Non-smoker Assessment/Plan All Active Problems (Last Updated 10/20/19 @ 11:12 by Dayana Gibson) Septic shock (Acute) Aspiration pneumonia (Acute) UTI (urinary tract infection) (Acute) Atrial fibrillation with RVR (Acute) Nasal bone fractures (Acute) Rhabdomyolysis (Acute) Alcohol withdrawal seizure (Acute) Hyponatremia (Acute) Traumatic rhabdomyolysis (Acute) Anemia (Acute) Acute kidney injury (Resolved) Multiple rib fractures (Acute) Pneumonia (Resolved) Pulmonary contusion (Acute) Acute alcoholic hepatitis (Resolved) Alcohol intoxication (Resolved) Alcohol withdrawal (Resolved) History of subdural hematoma (Resolved) Hyponatremia (Resolved) Non-union of fracture (Resolved) 1. Hyponatremia Sodium improved to 134. 2. sepsis syndrome, aspiration pna 3. Acute rhabdomyolysis from fall, trauma. 4. Alcohol abuse, intoxication. 5. Acute respiratory failure
--- NOTE | 2019-11-24 14:58 | CASEMGMT ---
SUSY spoke with patient and she is agreeable to going to [facility] to get stronger at discharge. SUSY faxed updates to [facility] and left a message for [facility] to please start the pre-cert. SUSY received a return call from [facility] and she will start the pre-cert. Shira GOULD MSW
--- NOTE | 2019-11-24 15:00 | NURSING ---
This RN updated the pt's dad, Mukund via phone.
[2019-11-24 17:21] LABS: Bedside Glucose 116 mg/dL (70-110)
[2019-11-24 23:55] LABS: Bedside Glucose 121 mg/dL (70-110)
[2019-11-25] VITALS (18 sets, daily range): BP systolic 100–129; BP diastolic 56–69; PULSE 100–120; RESP 14–19; TEMP 36.7–37.7; O2SAT 92–96
[2019-11-25] MEDS: Acetaminophen 650 MG Suppository RECTAL (00:47)
[2019-11-25] MEDS: Ipratropium/Albuterol Sulfate 3 ML AMPUL.NEB INHALATION ×4 (01:14→19:04)
[2019-11-25] MEDS: Sodium Chloride 0.65% 1 SPRAY SPRAY.BTL 4 SPRAY NASAL ×6 (01:30→21:28)
[2019-11-25] MEDS: Nystatin Powder 15gm Bottle 1 APPLIC TOPICAL ×3 (05:58→21:28)
[2019-11-25 06:05] LABS: Bedside Glucose 114 mg/dL (70-110)
[2019-11-25 07:04] LABS: Absolute Lymphocyte Count 1.48 X10^3/uL (0.83-4.51); Absolute Neutrophil Count 6.9 X10^3/uL (2.0-7.7); Basophil# 0.07 X10^3/uL; Basophil% 0.7 % (0-1); Eosinophil# 0.18 X10^3/uL; Eosinophils% 1.8 % (0-5); Hematocrit 35.3 % (37-47); Hemoglobin 10.7 g/dL (12.0-15.0); Lymphocyte # 1.48 X10^3/ul (4.0); Lymphocyte % 14.7 % (19-41); Mean Corp Hgb Conc 30.3 g/dL (32-36); Mean Corpuscular Volume 88.9 fL (81-99); Mean Platelet Vol. 9.4 fl (6.2-12.0); Monocyte# 1.23 X10^3/uL; Monocyte% 12.2 % (0-10); NRBC Flagged by Analyzer 0 % (0-5); Neutrophil # 6.93 X10^3/uL (2.7-7.7); Neutrophil % 68.8 % (47-70); Platelet Count 274 K/mm3 (150-450); Red Blood Count 3.97 M/mm3 (4.2-5.4); White Blood Count 10.1 K/mm3 (4.4-11.0)
--- NOTE | 2019-11-25 07:37 | PN_ITS ---
Subjective: Patient transferred out of the intensive care unit yesterday. Patient states she feels subjectively improved compared to yesterday. Patient is asking for p.o. intake, but is awaiting a swallow study today. Patient is still requiring minimal nasal cannula oxygen to maintain saturations. Coughing is improving. General: Alert, Oriented x3, Cooperative, No apparent distress, Well developed, Well nourished, - - Morbidly obese. Appears older than stated age HEENT: PERRLA, EOMI, Normocephalic, - - Ecchymosis is improving Oral: Moist Mucosa, No Gingival or Mucosal Lesions/ Ulcerations Neck: Supple, No JVD, No Nodes, Trachea Midline Lungs: No rhonchi, No wheeze, No rales, Diminished Cardiovascular: Normal S1, Normal S2, No murmurs, No rub noted, No Gallop, Tachycardic Abdomen: Bowel Sounds Present, Soft, Non Tender, Non-Distended, Obese Extremities: No clubbing, No cyanosis, Capillary Refill Less than 3 Seconds, Edema Skin: - - No change compared to previous Musculoskeletal: No Tenderness to Palpation of Joints or Extremities Lymphatic: No Cervical, Supraclavicular, or Inguinal Adenopathy Neurological: Cranial nerves II-XII grossly intact, Neuro grossly intact, Motor Exam 5/5 strength throughout Psych/Mental Status: Flat Affect Vital Signs Temp Pulse Resp BP Pulse Ox 37.2 C 103 H 19 H 120/64 96 11/25/19 04:23 11/25/19 06:45 11/25/19 04:23 11/25/19 04:23 11/25/19 04:23 Oxygen Flow Rate (L/min) 2 Oxygen Delivery Method Nasal Cannula Weight: 129.1 kg Body Mass Index (BMI) 44.0 Intake and Output for Last 24 Hours 11/23/19 11/24/19 11/25/19 23:59 23:59 23:59 Intake Total 1994.27 / 1994. 543.5 / 543.5 0 / 0 Output Total 6415 / 6415 1400 / 1400 Balance -4419.73 / -4419.73 -856.5 / -856.5 0 / 0 Labs (Last 48 Hours) 11/23/19 11/23/19 11/23/19 12:52 17:21 22:58 WBC RBC Hgb Hct MCV MCH MCHC RDW Std Deviation RDW Coeff of Cecil Plt Count MPV Immature Gran % (Auto) Neut % (Auto) Lymph % (Auto) Jasper % (Auto) Eos % (Auto) Baso % (Auto) Absolute Neuts (auto) Absolute Lymphs (auto) Nucleated RBC % Differential Comment Hypochromasia Sodium Potassium Chloride Carbon Dioxide Anion Gap BUN Creatinine Estim Creat Clear Calc Est GFR (MDRD) Af Amer Est GFR (MDRD) Non-Af BUN/Creatinine Ratio Glucose Calcium POC Glucose 139 H 126 H 119 H 11/24/19 11/24/19 11/24/19 03:55 03:55 05:06 WBC 12.1 H RBC 3.97 L Hgb 10.9 L Hct 34.4 L MCV 86.6 MCH 27.5 MCHC 31.7 L RDW Std Deviation 52.7 H RDW Coeff of Cecil 16.8 H Plt Count 228 MPV 8.9 Immature Gran % (Auto) 1.100 H Neut % (Auto) 78.1 H Lymph % (Auto) 9.1 L Jasper % (Auto) 9.0 Eos % (Auto) 2.3 Baso % (Auto) 0.4 Absolute Neuts (auto) 9.5 H Absolute Lymphs (auto) 1.11 Nucleated RBC % 0 Differential Comment SCANNED Hypochromasia RARE Sodium 134 L Potassium 3.2 L Chloride 98 Carbon Dioxide 33.0 H Anion Gap 3 L BUN 3 L Creatinine 0.36 L Estim Creat Clear Calc 165.65 Est GFR (MDRD) Af Amer 236 Est GFR (MDRD) Non-Af 195 BUN/Creatinine Ratio 8.3 L Glucose 114 H Calcium 7.7 L POC Glucose 122 H 11/24/19 11/24/19 11/24/19 12:09 17:14 23:50 WBC RBC Hgb Hct MCV MCH MCHC RDW Std Deviation RDW Coeff of Cecil Plt Count MPV Immature Gran % (Auto) Neut % (Auto) Lymph % (Auto) Jasper % (Auto) Eos % (Auto) Baso % (Auto) Absolute Neuts (auto) Absolute Lymphs (auto) Nucleated RBC % Differential Comment Hypochromasia Sodium Potassium Chloride Carbon Dioxide Anion Gap BUN Creatinine Estim Creat Clear Calc Est GFR (MDRD) Af Amer Est GFR (MDRD) Non-Af BUN/Creatinine Ratio Glucose Calcium POC Glucose 121 H 116 H 121 H 11/25/19 11/25/19 11/25/19 05:56 06:10 06:10 WBC 10.1 RBC 3.97 L Hgb 10.7 L Hct 35.3 L MCV 88.9 MCH 27.0 MCHC 30.3 L RDW Std Deviation 55.0 H RDW Coeff of Cecil 17.0 H Plt Count 274 MPV 9.4 Immature Gran % (Auto) 1.800 H Neut % (Auto) 68.8 Lymph % (Auto) 14.7 L Jasper % (Auto) 12.2 H Eos % (Auto) 1.8 Baso % (Auto) 0.7 Absolute Neuts (auto) 6.9 Absolute Lymphs (auto) 1.48 Nucleated RBC % 0 Differential Comment Hypochromasia Sodium Pending Potassium Pending Chloride Pending Carbon Dioxide Pending Anion Gap Pending BUN Pending Creatinine Pending Estim Creat Clear Calc Est GFR (MDRD) Af Amer Pending Est GFR (MDRD) Non-Af Pending BUN/Creatinine Ratio Pending Glucose Pending Calcium Pending POC Glucose 114 H Microbiology 11/21/19 19:30 Sputum, Induced/Lukens Gram Stain - Final 11/21/19 19:30 Sputum, Induced/Lukens Respiratory Culture - Final Presumptive C albicans 11/21/19 06:40 Blood Culture (Wb) - Anticubital Right Blood Culture - Preliminary No growth in 48 hours. 11/21/19 06:45 Blood Culture (Wb) - Port Blood Culture - Preliminary No growth in 48 hours. Medical Necessity - Tobacco Use Smoking Status: Never smoker Tobacco Use: Non-smoker Assessment/Plan All Active Problems (Last Updated 10/20/19 @ 11:12 by Dayana Gibson) Septic shock (Acute) Aspiration pneumonia (Acute) UTI (urinary tract infection) (Acute) Atrial fibrillation with RVR (Acute) Nasal bone fractures (Acute) Rhabdomyolysis (Acute) Alcohol withdrawal seizure (Acute) Hyponatremia (Acute) Traumatic rhabdomyolysis (Acute) Anemia (Acute) Acute kidney injury (Resolved) Multiple rib fractures (Acute) Pneumonia (Resolved) Pulmonary contusion (Acute) Acute alcoholic hepatitis (Resolved) Alcohol intoxication (Resolved) Alcohol withdrawal (Resolved) History of subdural hematoma (Resolved) Hyponatremia (Resolved) Non-union of fracture (Resolved) RECOMMENDATIONS: 1. Reasonable to continue antibiotics to complete a 5-day course following aspiration 2. Evaluate for periodic diuresis 3. Continue aerosol therapy 4. Increase activity as tolerated 5. Continue to wean FiO2 as tolerated. 6. Continue appropriate ICU prophylaxis. IMPRESSIONS: 1. Acute hypoxemic respiratory failure Appears to be precipitated by large emesis with witnessed aspiration, leading to respiratory decompensation. The patient did have to be emergently intubated prior to transfer to the ICU. She has stabilized at this time with invasive mechanical ventilatory support. We will continue broad-spectrum antimicrobial therapy to complete 5 days. Fever appears to be improving with discontinuation of Precedex. We will continue to monitor. Patient reportedly has had significant improvement following aerosols. Will schedule. Diuretics will be assessed on a as needed basis. 2. Septic shock The patient was initially admitted to the hospital with septic shock and was treated for a right lower lobe pneumonia and Klebsiella urinary tract infection. She improved clinically and was hemodynamically stable. However, on the morning of November 19 the patient had to be emergently intubated after a witnessed aspiration event. She subsequently went on to develop hypotension and new onset fevers. Eventually, low-dose Levophed had to be started to maintain hemodynamic stability. This has been discontinued. Will treat for a total of 5 days with antibiotics for aspiration. Fever likely secondary to Precedex given this has resolved with discontinuation of the medication. 3. Hyponatremia/hypochloremia/hypophosphatemia Likely secondary to beer potomania and intravascular volume depletion. The patient is currently being volume resuscitated, with slow improvement in sodium level noted. No IV hydration secondary to third spacing. Await swallow evaluation. Continue aggressive electrolyte repletion. 4. New onset atrial fibrillation with RVR/history of PFO Resolved. Continue rate/rhythm control strategy per cardiology recommendations. The patient does have a history of a PFO, but her history of recurrent falls would likely preclude her from consideration for systemic anti coagulation. 5. Longstanding history of alcoholism Continue CIWA protocol and monitor for alcohol withdrawal symptoms. Continue thiamine and folate. 6. Depression/hypothyroidism/obesity Complicates care, management, recovery and prognosis. Continue home medications as indicated. Physical therapy to work with the patient. Inpatient E&M: [id number] [facility] Hosp L2
[2019-11-25 07:57] LABS: BUN 3 mg/dL (7-18); Creatinine, Serum 0.36 mg/dL (0.55-1.02); EST Glomerular Filtration Rate 195 mL/min (>60); Estimated Creatinine Clearance 165.65 ml/min; Glucose 105 mg/dL (74-106)
[2019-11-25 07:58] LABS: Anion Gap 3 (5-15); BUN/Creat Ratio 8.3 RATIO (10-20); Calcium,Total 8.2 mg/dL (8.5-10.1); Chloride 98 mmol/L (98-107); Est Glom Filt Rate - Afr Amer 236 mL/min (>60); Potassium 4.2 mmol/L (3.5-5.1); Sodium Level 135 mmol/L (136-145)
[2019-11-25] MEDS: Menthol/Lanolin/Calamine/Znox 113 GM Tube 1 APPLIC TOPICAL ×4 (09:17→21:26)
[2019-11-25] MEDS: Enoxaparin 40 MG/0.4 ML Syringe SC (09:18)
[2019-11-25] MEDS: Amiodarone 200 MG Tablet PO ×2 (09:18→21:27)
--- NOTE | 2019-11-25 10:44 | CASEMGMT ---
Addendum entered by Shira Braxton 11/25/19 11:50: SUSY spoke with Nazanin and patient's pre-cert is good for 3 days starting today. SUSY notified physician. Shira CHRISTIANSON Addendum entered by Shira Braxton 11/25/19 11:19: SUSY called Nazanin and left her a voice mail inquiring how long the pre-cert is good. Shira CHRISTIANSON Original Note: SUSY received a voice mail from Nazanin at [facility] and she said that she received insurance authorization for patient. Patient is getting a Modified Barium Swallow today. SUSY will notify physician that pre-cert was received. Plan: d/c to [facility] under skilled level of care when patient is medically ready. Insurance approval received. Shira CHRISTIANSON
[2019-11-25 11:21] LABS: Bedside Glucose 109 mg/dL (70-110)
--- NOTE | 2019-11-25 13:04 | CHAPLAIN ---
Type of Pastoral Visit _x__ Initial Visit ___ Follow-up Visit ___ On-call Visit ___ General Patient Visit ___ Spiritual Assessment ___ Family Conference ___ Bereavement ___ Rapid Response ___ Code Blue ___ Other (describe below) Pastoral Care Referral From _x__ Patient ___ Family ___ Nurse ___ Physician ___ Signals Intelligence Superintendent ___ Director Trust ___ Other (describe below) Sacrament/Intervention _x__ Active listening ___ Anointing ___ Sikhism ___ Bereavement ___ Communion ___ Shara exploration ___ ___ Life review _x__ Prayer ___ Reconciliation ___ Sacrament of Sick _x__ Supportive presence ___ Wedding ___ Other (describe below) Pastoral Comments
--- NOTE | 2019-11-25 13:36 | PCM.PN.HOSP ---
Patient Problems: Active and Suspected Problems (Last Updated 10/20/19 @ 11:12 by Dayana Gibson) Septic shock (Acute) Aspiration pneumonia (Acute) UTI (urinary tract infection) (Acute) Atrial fibrillation with RVR (Acute) Nasal bone fractures (Acute) Rhabdomyolysis (Acute) Alcohol withdrawal seizure (Acute) Reason for Visit: septic shock Subjective: feels well. Vitals/I&O's: Vital Signs Temp Pulse Resp BP Pulse Ox 36.7 C 117 H 14 129/68 H 95 11/25/19 08:57 11/25/19 10:53 11/25/19 08:57 11/25/19 08:57 11/25/19 08:57 Oxygen Flow Rate (L/min) 2 Oxygen Delivery Method Nasal Cannula Weight: 129.1 kg Body Mass Index (BMI) 44.0 Intake and Output for Last 24 Hours 11/23/19 11/24/19 11/25/19 23:59 23:59 23:59 Intake Total 1994.27 / 543.5 / 543.5 0 / 0 Output Total 6415 / 6415 1400 / 1400 Balance -4419.73 / -4419.73 -856.5 / -856.5 0 / 0 General: Alert, No apparent distress HEENT: Atraumatic, Normocephalic Neck: No Nodes, Thyroid Normal Size and Texture Lungs: Clear to auscultation, Normal air movement, No rhonchi, No wheeze Cardiovascular: Regular rate, Regular Rhythm, Normal S1, Normal S2, No murmurs Abdomen: Bowel Sounds Present, Soft, Non Tender, Non-Distended Extremities: No edema, No Calf Tenderness Microbiology Past 72 Hours 11/21/19 19:30 Sputum, Induced/Lukens Gram Stain - Final 11/21/19 19:30 Sputum, Induced/Lukens Respiratory Culture - Final Presumptive C albicans 11/21/19 06:40 Blood Culture (Wb) - Anticubital Right Blood Culture - Preliminary No growth in 48 hours. 11/21/19 06:45 Blood Culture (Wb) - Port Blood Culture - Preliminary No growth in 48 hours. 11/20/19 11:00 Sputum, Induced/Lukens Gram Stain - Final 11/20/19 11:00 Sputum, Induced/Lukens Respiratory Culture - Final Presumptive C albicans 11/17/19 06:30 Blood Culture (Wb) - Anticubital Right Blood Culture - Final No growth in 5 days. 11/17/19 06:50 Blood Culture (Wb) - Left Wrist Blood Culture - Final No growth in 5 days. Laboratory Results 11/24/19 17:14: POC Glucose 116 H 11/24/19 23:50: POC Glucose 121 H 11/25/19 05:56: POC Glucose 114 H 11/25/19 06:10: WBC 10.1, RBC 3.97 L, Hgb 10.7 L, Hct 35.3 L, MCV 88.9, MCH 27.0, MCHC 30.3 L, RDW Std Deviation 55.0 H, RDW Coeff of Cecil 17.0 H, Plt Count 274, MPV 9.4, Immature Gran % (Auto) 1.800 H, Neut % (Auto) 68.8, Lymph % (Auto) 14.7 L, Simpson % (Auto) 12.2 H, Eos % (Auto) 1.8, Baso % (Auto) 0.7, Absolute Neuts (auto) 6.9, Absolute Lymphs (auto) 1.48, Nucleated RBC % 0 11/25/19 06:10: Sodium 135 L, Potassium 4.2, Chloride 98, Carbon Dioxide 34.0 H, Anion Gap 3 L, BUN 3 L, Creatinine 0.36 L, Estim Creat Clear Calc 165.65, Est GFR (MDRD) Af Amer 236, Est GFR (MDRD) Non-Af 195, BUN/Creatinine Ratio 8.3 L, Glucose 105, Calcium 8.2 L 11/25/19 11:03: POC Glucose 109 Current Medications Acetaminophen (Tylenol) 650 mg RECTAL Q4H PRN PRN PRN Reason: Pain Score 1-10/Temp > 100.7 F Last Admin: 11/25/19 00:47 Dose: 650 mg Documented by: Acetaminophen (Tylenol Liquid) 650 mg PO Q6H PRN PRN PRN Reason: Pain Score 1-10/10/FEVER Al Hydroxide/Mg Hydroxide (Mylanta Ii) 30 ml PO Q6H PRN PRN PRN Reason: Gastric Burning Albuterol Sulfate (Ventolin Aerosols) 2.5 mg INHALATION Q2H PRN PRN PRN Reason: Dyspnea, wheezing Last Admin: 11/24/19 05:01 Dose: 2.5 mg Documented by: Albuterol/Ipratropium (Duoneb) 3 ml INHALATION Q6HWA.RT [facility] Last Admin: 11/25/19 07:07 Dose: 3 ml Documented by: Amiodarone HCl (Cordarone) 200 mg PO BID [facility] Last Admin: 11/25/19 09:18 Dose: 200 mg Documented by: Aspirin (Aspirin, Baby) 81 mg PO DAILY [facility] Last Admin: 11/25/19 08:41 Dose: Not Given Documented by: Atorvastatin Calcium (Lipitor) 20 mg PO QHS [facility] Last Admin: 11/24/19 21:02 Dose: Not Given Documented by: Bupropion HCl (Wellbutrin Tablets) 75 mg PO BID [facility] Last Admin: 11/25/19 08:42 Dose: Not Given Documented by: Calamine/Phenol (Calmoseptine Ointment) 1 applic TOPICAL 4X/DAY [facility]; Protocol Last Admin: 11/25/19 09:17 Dose: 1 applic Documented by: Dicyclomine HCl (Bentyl) 20 mg PO Q6H PRN PRN PRN Reason: abdominal discomfort Emollient Ointment (Eucerin Intensive Repair) 1 applic TOPICAL QHS [facility]; Protocol Last Admin: 11/24/19 21:01 Dose: 1 applicatio Documented by: Enoxaparin Sodium (Lovenox) 40 mg SC DAILY [facility] Last Admin: 11/25/19 09:18 Dose: 40 mg Documented by: Famotidine (Pepcid) 20 mg PO BID [facility] Last Admin: 11/25/19 08:41 Dose: Not Given Documented by: Gabapentin (Neurontin) 300 mg PO Q8H PRN PRN PRN Reason: moderate to severe anxiety Guaifenesin (Robitussin) 10 ml PO Q6H [facility] Last Admin: 11/25/19 11:30 Dose: Not Given Documented by: Hydroxyzine Pamoate (Vistaril Pamoate Capsule) 50 mg PO Q4H PRN PRN PRN Reason: mild anxiety Sodium Chloride () 250 mls @ 15 mls/hr IV .[id number] PRN PRN Reason: Saline Flush Last Infusion: 11/24/19 13:00 Dose: Infused Documented by: Sodium Chloride () 250 mls @ 15 mls/hr IV .[id number] PRN PRN Reason: Additional IVPB Infusion Last Infusion: 11/21/19 12:29 Dose: Infused Documented by: Ibuprofen (Motrin Liquid) 100 mg PO Q8H PRN PRN PRN Reason: fever, pain -12/03 Last Admin: 11/22/19 13:52 Dose: 100 mg Documented by: Insulin Human Lispro (Humalog Kwikpen (Bkc)) 0 unit SC Q6 [facility]; Protocol Last Admin: 11/25/19 11:16 Dose: Not Given Documented by: Levothyroxine Sodium (Synthroid) 50 mcg PO DAILY@0600 [facility] Last Admin: 11/25/19 06:00 Dose: Not Given Documented by: Levothyroxine Sodium (Synthroid) 200 mcg PO DAILY@0600 [facility] Last Admin: 11/25/19 06:00 Dose: Not Given Documented by: Loperamide HCl (Imodium) 2 mg PO Q4H PRN PRN PRN Reason: LOOSE STOOLS Loratadine (Claritin) 10 mg PO DAILY [facility] Last Admin: 11/25/19 08:41 Dose: Not Given Documented by: Magnesium Hydroxide (Milk Of Magnesia) 30 ml PO DAILY PRN PRN PRN Reason: Constipation Nystatin (Mycostatin Powder) 1 applic TOPICAL TID [facility]; Protocol Last Admin: 11/25/19 05:58 Dose: 1 applicatio Documented by: Ondansetron HCl (Zofran) 4 mg IV Q8H PRN PRN PRN Reason: NAUSEA/VOMITING Last Admin: 11/20/19 03:47 Dose: 4 mg Documented by: Polyethylene Glycol (Miralax) 17 gm PO DAILY PRN PRN PRN Reason: Constipation Prochlorperazine Edisylate (Compazine Iv) 5 mg IV Q4H PRN PRN PRN Reason: Breakthrough Nausea/Vomiting Last Admin: 11/20/19 05:22 Dose: 5 mg Documented by: Promethazine HCl (Phenergan) 6.25 mg IV Q6H PRN PRN PRN Reason: NAUSEA/VOMITING Last Admin: 11/23/19 23:14 Dose: 6.25 mg Documented by: Senna (Senokot) 2 tablet PO BID [facility] Last Admin: 11/25/19 08:42 Dose: Not Given Documented by: Sodium Chloride (Cowlic Nasal Hay) 4 spray NASAL Q4H [facility] Last Admin: 11/25/19 09:18 Dose: 4 spray Documented by: Sodium Chloride () 10 - 40 ml IV UD PRN PRN Reason: SALINE FLUSH Last Admin: 11/24/19 05:07 Dose: 20 ml Documented by: Sodium Chloride (Sodium Chl 15 Ml) 5 ml INHALATION Q5M PRN PRN Reason: Suctioning Throat Lozenges (Cepacol Sore Throat Lozenge) 1 lozenge MUCOUS MEM Q2H PRN PRN PRN Reason: SORE THROAT Last Admin: 11/23/19 22:55 Dose: 1 lozenge Documented by: Trazodone HCl (Desyrel) 100 mg PO QHS PRN PRN PRN Reason: INSOMNIA STROKE Vital Signs/Narrative: Vital Signs Pulse 11/25/19 10:53 117 H Medical Necessity - Tobacco Use Smoking Status: Never smoker Tobacco Use: Non-smoker Assessment/Plan All Active Problems (Last Updated 10/20/19 @ 11:12 by Dayana Gibson) Septic shock (Acute) Aspiration pneumonia (Acute) UTI (urinary tract infection) (Acute) Atrial fibrillation with RVR (Acute) Nasal bone fractures (Acute) Rhabdomyolysis (Acute) Alcohol withdrawal seizure (Acute) Hyponatremia (Acute) Traumatic rhabdomyolysis (Acute) Anemia (Acute) Acute kidney injury (Resolved) Multiple rib fractures (Acute) Pneumonia (Resolved) Pulmonary contusion (Acute) Acute alcoholic hepatitis (Resolved) Alcohol intoxication (Resolved) Alcohol withdrawal (Resolved) History of subdural hematoma (Resolved) Hyponatremia (Resolved) Non-union of fracture (Resolved) 1. septic shock 2/2 aspiration pneumonia off pressors 2. acute hypoxic respiratory failure extubated 11/22 2/2 aspiration pneumonia 3. acute alcohol withdrawal with possible withdrawal seizure resolved thiamine and folate 4. aspiration pneumonia meropenem through 11/23 pulm toilet 5. pAfib, new onset in NSR cardiology following amiodarone 200 BID 6. acute on chronic hyponatremia improving 7. rhabdomyolysis likely 2/2 fall and/or seizure resolved 8. fall with nasal bone fxr conservative mgmt 9. hypokalemia replacement provided 10. Dysphagia s/p intubation NPO swallow eval pending 11. Debility: plan for SNF 12. VTE prophylaxis: SCDs, LMWH Inpatient E&M: 59175 Subs Hosp L2
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
[2019-11-25 16:25] LABS: Bedside Glucose 143 mg/dL (70-110)
[2019-11-25] MEDS: guaiFENesin 10 ML UDC (200MG/10ML) PO (19:40)
[2019-11-25] MEDS: Atorvastatin Calcium 20 MG Tablet PO (21:28)
[2019-11-25] MEDS: Famotidine 20 MG Tablet PO (21:28)
[2019-11-25] MEDS: buPROPion 75 MG Tablet PO (21:29)
[2019-11-25] MEDS: Senna Tablet 2 TABLET PO (21:29)
[2019-11-26] VITALS (8 sets, daily range): BP systolic 130–148; BP diastolic 69–98; PULSE 103–110; RESP 16–19; TEMP 36.9–37.2; O2SAT 94–95
[2019-11-26] MEDS: guaiFENesin 10 ML UDC (200MG/10ML) PO ×2 (00:53→08:38)
[2019-11-26] MEDS: Sodium Chloride 0.65% 1 SPRAY SPRAY.BTL 4 SPRAY NASAL ×3 (01:00→10:02)
[2019-11-26 01:11] LABS: Bedside Glucose 110 mg/dL (70-110)
[2019-11-26] MEDS: Nystatin Powder 15gm Bottle 1 APPLIC TOPICAL (06:03)
[2019-11-26] MEDS: Levothyroxine 50 MCG Tablet PO (06:03)
[2019-11-26] MEDS: Levothyroxine 100 MCG Tablet 200 MCG PO (06:05)
[2019-11-26 06:20] LABS: Bedside Glucose 107 mg/dL (70-110)
[2019-11-26] MEDS: Ipratropium/Albuterol Sulfate 3 ML AMPUL.NEB INHALATION ×2 (07:15→12:43)
--- NOTE | 2019-11-26 09:30 | CASEMGMT ---
Per physician he will be discharging patient to [facility] today. SUSY called Nazanin at [facility] and let her know. Await orders. Shira GOULD MSW
[2019-11-26] MEDS: Famotidine 20 MG Tablet PO (10:00)
[2019-11-26] MEDS: Loratadine 10 MG Tablet PO (10:00)
[2019-11-26] MEDS: Aspirin 81 MG TAB.CHEW PO (10:01)
[2019-11-26] MEDS: Menthol/Lanolin/Calamine/Znox 113 GM Tube 1 APPLIC TOPICAL (10:01)
[2019-11-26] MEDS: buPROPion 75 MG Tablet PO (10:01)
[2019-11-26] MEDS: Amiodarone 200 MG Tablet PO (10:01)
[2019-11-26] MEDS: Enoxaparin 40 MG/0.4 ML Syringe SC (10:06)
--- NOTE | 2019-11-26 10:22 | PCM.TXEXTCAR ---
- Diet 11/25/19 16:06 Diet: Cardiac - Heart Healthy Food consistency:: Mechanical (Minced/Moist) Liquid Consistency:: Regular/Thin Is pt able to select menu?: Yes Diet Comments: supervised meals, HOB 90 or up in chair, small bites/sips - Wound(s) RIGHT GREAT TOE Wound Type: Abrasion Dressing Change: Adaptic LEFT GREAT TOE Wound Type: Abrasion Dressing Change: AntiMicrobial (Aquacel AG, etc) FACE Wound Type: Abrasion FOREHEAD Wound Type: Laceration Dressing Change: Dry Sterile Dressing medial base of right great toe Wound Type: Laceration Dressing Change: Adaptic left lateral heel Wound Type: Laceration Dressing Change: Adaptic coccyx Wound Type: Pressure Injury - Therapies Weight Bearing: Full weight bearing Physical Therapy: Eval and Treat Occupational Therapy: Eval and Treat Speech Therapy: Eval and Treat - Allergies/Procedures Done in Hospital Allergies/Adverse Reactions: Allergies ceftriaxone Allergy (Verified 11/17/19 13:15) Hives metronidazole [From Flagyl] Allergy (Verified 11/17/19 13:15) Hives Penicillins Allergy (Verified 10/20/19 11:05) Hives - Type of Care/Length of Stay Estimated LOS: Convalescent Care Less Than 30 days Type of Care Needed: Skilled Rehab Potential: Fair Prognosis: Fair - Additional Orders/Day of Discharge Day of Discharge: 11/26/19 - Dietary and Speech Recommendations Dietitian Recommendations/Changes: Cardiac diet- consistency per SAP CRM DEVELOPER when appropriate for PO intake. Speech Linguistic Eval Summary: Pt oriented to self, , location, current month/year. Off one day for date. Pt able to provide general outline of recent events however gets confused with details. Pt demonstrating confusion and requires frequent redirection. Will plan for further cogntive assessment as SAP CRM DEVELOPER finds clinically appropriate. - Follow Up Care Primary Care Physician: Mansoor Chavarria DO [Primary Care Provider] - Within 2 Weeks Please Follow Up With: Allen Dinero MD - cardiology When: 4-6 weeks
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
--- NOTE | 2019-11-26 10:46 | PHA.DC.MR ---
Pharmacy Service has performed discharge medication reconciliation for this patient upon transfer to [facility]. The patient's discharge medication list was reviewed for discrepancies and discrepancies were resolved. Home Medications multivitamin 1 ea PO DAILY #0 06/12/17 Bupropion HCl 75 mg PO BID 07/02/19 Emollient Combination No.72 [Eucerin Intensive Repair] 1 applic TOPICAL QHS lotion 07/15/19 Famotidine [Pepcid] 20 mg PO BID tab 07/15/19 Loratadine [Claritin] 10 mg PO DAILY tab 07/15/19 cholecalciferol (vitamin D3) 50 mcg (2,000 unit) capsule 50 mcg PO DAILY #90 cap 10/21/19 Amiodarone HCl [Cordarone] 200 mg PO BID tab 11/26/19 Aspirin [Aspirin, Baby] 81 mg PO DAILY tab.chew 11/26/19 Atorvastatin Calcium [Lipitor] 20 mg PO QHS tab 11/26/19 Levothyroxine [Synthroid] 50 mcg PO DAILY@0600 tab 11/26/19 Levothyroxine [Synthroid] 200 mcg PO DAILY@0600 tab 11/26/19 Nystatin Powder [Mycostatin Powder] 1 applic TOPICAL TID bottle 11/26/19
--- NOTE | 2019-11-26 11:14 | CASEMGMT ---
SUSY obtained orders. Called [facility] and arranged for patient to get picked up at via van. SW notified RN, medical secretary receptionist, and patient. Patient said she already let her dad know. SW asked if she would like any resources for her alcohol use and she declined stating she already knows the resources in the area. SUSY faxed orders to [place] with pickling tank operator time. SUSY also completed a convalescent on [facility]. Plan: d/c to [place] at [place] under skilled level of care on a convalescent stay. [facility] transported her via wheelchair. Shira GOULD SURVEY SUPERINTENDENT
--- NOTE | 2019-11-26 11:31 | CASEMGMT ---
Addendum entered by Shira Braxton 11/26/19 12:26: SUSY was able to get fax to go through on another fax machine on a different floor. Shira GOULD SIGN BUILDER SUPERVISOR Original Note: SUSY has tried 3 times to fax orders to [facility] [place] and it will not go through. SUSY has attempted to fax from a different fax machine. Wait to see if orders to through. SUSY called Nazanin at [facility] and let her know above and also let her know pick up truck driver time. Continue to try and get fax to go through. Shira GOULD SIGN BUILDER SUPERVISOR
--- NOTE | 2019-11-26 12:30 | NURSING ---
'Report called to nurse Rios for pt transfer to [facility].
== END 2019-11-26 13:07 | disposition skilled nursing facility (03) | DRG 720 ==
LOC: ED 07:12 → ICU 08:09 → PCU 11-19 09:06 → ICU 11-20 19:16 → PCU 11-24 13:10
PROVIDERS: Internal Medicine Cardiovascular Disease; Internal Medicine Critical Care Medicine; Admitting Provider Family Medicine; Emergency Provider Student in an Organized Health Care Education/Training Program; PCP Family Medicine
DX: A41.9 Sepsis, unspecified organism (principal); R65.21 Severe sepsis with septic shock; J69.0 Pneumonitis due to inhalation of food and vomit; J96.01 Acute respiratory failure with hypoxia; T17.918A Gastric contents in respiratory tract, part unspecified causing other injury, initial encounter; X58.XXXA Exposure to other specified factors, initial encounter; Y92.230 Patient room in hospital as the place of occurrence of the external cause; Y99.9 Unspecified external cause status; N39.0 Urinary tract infection, site not specified; B96.1 Klebsiella pneumoniae [K. pneumoniae] as the cause of diseases classified elsewhere; E87.2 Acidosis; I48.0 Paroxysmal atrial fibrillation; T79.6XXA Traumatic ischemia of muscle, initial encounter; F10.239 Alcohol dependence with withdrawal, unspecified; Y90.3 Blood alcohol level of 60-79 mg/100 ml; R56.9 Unspecified convulsions; E87.1 Hypo-osmolality and hyponatremia; E87.6 Hypokalemia; E87.8 Other disorders of electrolyte and fluid balance, not elsewhere classified; E83.39 Other disorders of phosphorus metabolism; G93.40 Encephalopathy, unspecified; S02.2XXA Fracture of nasal bones, initial encounter for closed fracture; S91.312A Laceration without foreign body, left foot, initial encounter; S91.111A Laceration without foreign body of right great toe without damage to nail, initial encounter; Z23 Encounter for immunization; W01.190A Fall on same level from slipping, tripping and stumbling with subsequent striking against furniture, initial encounter; Y93.9 Activity, unspecified; E03.9 Hypothyroidism, unspecified; R13.10 Dysphagia, unspecified; I10 Essential (primary) hypertension; M17.11 Unilateral primary osteoarthritis, right knee; R73.03 Prediabetes; G47.33 Obstructive sleep apnea (adult) (pediatric); F32.9 Major depressive disorder, single episode, unspecified; F41.9 Anxiety disorder, unspecified; E66.01 Morbid (severe) obesity due to excess calories; Z68.43 Body mass index [BMI] 50.0-59.9, adult; K21.9 Gastro-esophageal reflux disease without esophagitis; R29.6 Repeated falls; Z86.73 Personal history of transient ischemic attack (TIA), and cerebral infarction without residual deficits; Z91.14 Patient's other noncompliance with medication regimen; Z79.890 Hormone replacement therapy; Z79.899 Other long term (current) drug therapy; Z91.81 History of falling; Z86.14 Personal history of Methicillin resistant Staphylococcus aureus infection
CPT/HCPCS: 31500; 31720; 36415; 36600; 70450; 70486; 71045; 72125; 74018; 74230; 80048; 80053; 80307; 80320; 81001; 82140; 82550; 82570; 82803; 82962; 83036; 83605; 83690; 83735; 83935; 84100; 84300; 84439; 84443; 84484; 85025; 85610; 85730; 87040; 87070; 87077; 87086; 87088; 87186; 87205; 87449; 87633; 87635; 87641; 90715; 92523; 92526; 92610; 92611; 93005; 93306; 94002; 94003; 94640; 94660; 97110; 97116; 97162; 97166; 97530; 97535; 97802; 97803; 99251; 99285; J2185; J7030; J7040; J7050; J7120; Q9957; A4216; C1751; C8929; G0463; G0480; J1940; J2405; J3010; J3490; U0003

== ENCOUNTER → 2019-12-10 17:55 | Outpatient (CLI) | payer MEDICAID, SELFPAY ==
[2019-10-20 11:13] VITALS: BMI 44.9
[2019-11-20 09:44] VITALS: BMI 44.0
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
== END ==
PROVIDERS: PCP Family Medicine
DX: S72.462A Displaced supracondylar fracture with intracondylar extension of lower end of left femur, initial encounter for closed fracture (principal); V89.2XXA Person injured in unspecified motor-vehicle accident, traffic, initial encounter; Y93.9 Activity, unspecified; Y92.9 Unspecified place or not applicable; Y99.9 Unspecified external cause status
CPT/HCPCS: 73700

== ENCOUNTER → 2019-12-20 13:02 | Outpatient (CLI) | payer MEDICAID, SELFPAY ==
[2019-11-20 09:44] VITALS: BMI 44.0
[2019-12-20 15:38] LABS: Thyroid Stim Hormone (TSH) 0.26 uIU/mL (0.358-3.74)
== END ==
PROVIDERS: Nurse Practitioner Family; PCP Family Medicine; Visit Provider Family Medicine
DX: E03.9 Hypothyroidism, unspecified (principal)
CPT/HCPCS: 36415; 84443

== ENCOUNTER → 2019-12-20 19:56 | Outpatient (CLI) | payer MEDICAID, SELFPAY ==
[2019-10-20 11:13] VITALS: BMI 44.9
[2019-11-20 09:44] VITALS: BMI 44.0
== END ==
PROVIDERS: PCP Family Medicine; Referring Provider Nurse Practitioner Family; Visit Provider Nurse Practitioner Family
DX: G47.10 Hypersomnia, unspecified (principal); G47.30 Sleep apnea, unspecified; E03.9 Hypothyroidism, unspecified
CPT/HCPCS: 36415; 84443; 95811

== ENCOUNTER → 2019-12-21 05:59 | Outpatient (CLI) | payer MEDICAID, SELFPAY ==
[2019-10-20 11:13] VITALS: BMI 44.9
[2019-11-20 09:44] VITALS: BMI 44.0
--- NOTE | 2019-12-21 06:15 | CT_ITS ---
HISTORY: PANCREATIC MASS. HX OF TUBAL. ADDITIONAL HISTORY: None provided. TECHNIQUE: CT images were obtained of the abdomen without and with 100 mL Isovue 300 IV contrast. Enteric contrast was not given. A radiation dose optimization technique was used for this scan. Number of images including paperwork: 535 COMPARISON: 06/26/2019 FINDINGS: LOWER THORAX: Small bilateral pleural effusions. Micronodular opacities may be postinfectious or postinflammatory. There are dense consolidation. LIVER: No concerning focal lesion. GALLBLADDER: No radiopaque calculi. BILE DUCTS: No significant biliary dilatation. SPLEEN: Unremarkable. PANCREAS: Lesions with peripheral calcification are seen along the pancreatic neck (2.1 x 1.8 cm on series 2 image 27), pancreatic body/tail (0.9 x 0.8 cm on series 2 image 22), and near the inferior uncinate process (1.4 x 1.9 cm on series 2 image 49). These appear grossly similar to previous ADRENAL GLANDS: Unremarkable. KIDNEYS/URETERS: Unremarkable. BOWEL: No bowel obstruction. No significant bowel wall thickening. No localized inflammation. APPENDIX: No evidence of appendicitis. FREE FLUID: No significant free fluid. FREE AIR: None. LYMPH NODES: No pathologic appearing adenopathy. PERITONEUM, RETROPERITONEUM AND MESENTERY: Otherwise unremarkable. VASCULATURE: Unremarkable as imaged. ABDOMINAL WALL: Unremarkable. OSSEOUS AND SOFT TISSUE STRUCTURES: No acute skeletal findings. CT/Abdomen W/WO IV Contrast IMPRESSION: Peripherally calcified peripancreatic lesions appear grossly stable. These are nonspecific but favored to be postinflammatory. Consider MRI without and with contrast in 6 months to assess for stability and to further characterize. Alternatively, CT follow-up could be performed for assessment of stability. Individualized dose optimization techniques were used for this CT. at 0649 Reported and signed by: Santa Persaud MD Electronically Signed: Santa Persaud MD at 6:49 EDT Tel , Service support ,
== END ==
PROVIDERS: PCP Family Medicine; Referring Provider Family Medicine; Visit Provider Family Medicine
DX: K86.89 Other specified diseases of pancreas (principal)
CPT/HCPCS: 74170; Q9967

== ENCOUNTER → 2019-12-28 12:53 | Outpatient (CLI) | payer MEDICAID, SELFPAY ==
--- NOTE | 2019-12-28 12:54 | EKG12_ITS ---
Test Reason : PREOP Blood Pressure : / mmHG Vent. Rate : 101 BPM Atrial Rate : 101 BPM P-R Int : 150 ms QRS Dur : 086 ms QT Int : 362 ms P-R-T Axes : 042 -38 042 degrees QTc Int : 469 ms Sinus tachycardia Left axis deviation Low voltage QRS Poor R wave progression Abnormal ECG Confirmed by JOHN FERGUSON, AYAN ([id number]), graphic editor DARRELL MURILLO ([id number]) on 12/29/2019 10:45:12 AM Referred By: Tasneem James Confirmed By:AYAN LOPEZ MD
== END ==
PROVIDERS: PCP Family Medicine; Referring Provider Internal Medicine; Visit Provider Internal Medicine
DX: I48.91 Unspecified atrial fibrillation (principal)
CPT/HCPCS: 93005

== ENCOUNTER → 2020-01-03 13:22 | Outpatient (CLI) | payer MEDICAID, SELFPAY ==
[2019-12-31 14:38] VITALS: BMI 38.3
== END ==
PROVIDERS: PCP Family Medicine; Referring Provider Internal Medicine; Visit Provider Internal Medicine
DX: Z01.818 Encounter for other preprocedural examination (principal); R94.31 Abnormal electrocardiogram [ECG] [EKG]
CPT/HCPCS: J7040; A4216

== ENCOUNTER → 2020-01-04 11:01 | Outpatient (CLI) | payer MEDICAID, SELFPAY ==
[2019-12-23 10:38] VITALS: BMI 38.3
[2019-12-31 14:38] VITALS: BMI 38.3
== END ==
PROVIDERS: PCP Family Medicine; Visit Provider Nurse Practitioner Acute Care
DX: Z46.89 Encounter for fitting and adjustment of other specified devices (principal)

== ENCOUNTER → 2020-01-05 05:47 | Outpatient (CLI) | payer MEDICAID, SELFPAY ==
[2019-12-31 14:38] VITALS: BMI 38.3
--- NOTE | 2020-01-05 08:59 | STRESSREP ---
Stress Test Report Pharmacologic myocardial perfusion stress test. 59-year-old lady with a history of possible coronary disease. Stress protocol: Resting KG demonstrates normal sinus rhythm with a rate of 77 bpm normal intervals are noted resting blood pressure is 122/84 mmHg. 0.4 mg of regadenoson was infused per usual protocol followed by rapid intravenous saline flush injection continuous EKG monitoring was performed. The maximum heart rate attained was 84 bpm which was 51% of max impacted heart rate the maximum workload was 1 metabolic equivalent. At rest there were no ST or T wave changes noted to suggest abnormal flow reserve at peak infusion nonspecific ST-T wave changes were noted with no meet the criteria for ischemia. No clinical angina was noted. The resting blood pressure was 122/84 with a final blood pressure of 120/80 mmHg. Myocardial perfusion protocol. 14.8 mCi of technetium 99m sestamibi was injected at rest. 0.4 mg of regadenoson was infused per usual protocol. At peak infusion 44.7 mCi of technetium 99m sestamibi was injected stress images were obtained stress and rest images were reconstructed in comparing the short axis vertical long horizontal long axis. Gated images were also obtained Perfusion SPECT analysis: Review of the stress images demonstrate normal uptake of tracer noted in all areas of myocardium the resting images similarly demonstrate normal uptake of tracer noted in all areas of myocardium. No reversibility is noted suggest ischemia no previous infarct is noted. Gated SPECT analysis: The gated ejection fraction is 73%. Conclusion: Normal pharmacologic myocardial perfusion stress test. Preserved ejection fraction.
== END ==
PROVIDERS: PCP Family Medicine; Referring Provider Internal Medicine Cardiovascular Disease; Visit Provider Internal Medicine Cardiovascular Disease
DX: Z01.818 Encounter for other preprocedural examination (principal); R94.31 Abnormal electrocardiogram [ECG] [EKG]
CPT/HCPCS: 78452; 93017; A9500; A4216; J2785

== ENCOUNTER → 2020-02-02 11:54 | Outpatient (CLI) | payer MEDICAID, SELFPAY ==
[2020-02-02 10:37] VITALS: BMI 38.3
[2020-02-02 16:03] LABS: Thyroid Stim Hormone (TSH) 2.69 uIU/mL (0.358-3.74)
== END ==
PROVIDERS: PCP Family Medicine; Referring Provider Internal Medicine; Visit Provider Internal Medicine
DX: E03.9 Hypothyroidism, unspecified (principal)
CPT/HCPCS: 36415; 84443

== ENCOUNTER → 2020-02-10 13:00 | Outpatient (CLI) | payer MEDICAID, SELFPAY ==
[2020-02-02 10:37] VITALS: BMI 38.3
== END ==
PROVIDERS: PCP Family Medicine; Visit Provider Nurse Practitioner Acute Care
DX: G47.33 Obstructive sleep apnea (adult) (pediatric) (principal)
CPT/HCPCS: 98960; G0463

== ENCOUNTER → 2020-02-21 13:53 | Outpatient (CLI) | payer MEDICAID, SELFPAY ==
[2020-02-02 10:37] VITALS: BMI 38.3
[2020-02-21 15:12] LABS: Absolute Lymphocyte Count 1.83 X10^3/uL (0.83-4.51); Absolute Neutrophil Count 4.4 X10^3/uL (2.0-7.7); Basophil# 0.07 X10^3/uL; Eosinophil# 0.27 X10^3/uL; Eosinophils% 3.8 % (0-5); Hematocrit 35.8 % (37-47); Hemoglobin 10.5 g/dL (12.0-15.0); Lymphocyte # 1.83 X10^3/ul (4.0); Lymphocyte % 25.8 % (19-41); Mean Corp Hgb Conc 29.3 g/dL (32-36); Mean Corpuscular Hgb 25.7 pg (27.0-32.0); Mean Corpuscular Volume 87.5 fL (81-99); Monocyte# 0.46 X10^3/uL; Monocyte% 6.5 % (0-10); NRBC Flagged by Analyzer 0 % (0-5); Neutrophil # 4.43 X10^3/uL (2.7-7.7); Neutrophil % 62.6 % (47-70); Platelet Count 349 K/mm3 (150-450); RBC Distribution Width CV 13.9 % (11.6-14.6); RBC Distribution Width SD 44.5 fl (35.1-43.9); Red Blood Count 4.09 M/mm3 (4.2-5.4); White Blood Count 7.1 K/mm3 (4.4-11.0)
[2020-02-21 15:21] LABS: Erythrocyte Sedimentation Rate 30 mm/hr (0-30)
[2020-02-21 16:03] LABS: ALB/GLOB Ratio 0.8 RATIO (0.9-2.4); AST(SGOT) 16 U/L (15-37); Alanine Aminotransfer ALT/SGPT 24 U/L (13-56); Albumin, Serum 3.2 g/dL (3.2-5.0); Alkaline Phosphatase 106 U/L (45-117); Anion Gap 4 (5-15); BUN 20 mg/dL (7-18); BUN/Creat Ratio 22.7 RATIO (10-20); Calcium,Total 9.2 mg/dL (8.5-10.1); Chloride 106 mmol/L (98-107); Creatinine, Serum 0.88 mg/dL (0.55-1.02); EST Glomerular Filtration Rate 70 mL/min (>60); Est Glom Filt Rate - Afr Amer 85 mL/min (>60); Globulin 4.2 g/dL (2.2-4.2); Glucose 79 mg/dL (74-106); Potassium 4.4 mmol/L (3.5-5.1); Protein, Total 7.4 g/dL (6.4-8.2); Sodium Level 140 mmol/L (136-145)
== END ==
PROVIDERS: PCP Family Medicine; Referring Provider Internal Medicine; Visit Provider Internal Medicine
DX: R22.1 Localized swelling, mass and lump, neck (principal)
CPT/HCPCS: 36415; 80053; 85025; 85652

== ENCOUNTER → 2020-03-01 12:54 | Outpatient (CLI) | payer MEDICAID, SELFPAY ==
[2020-02-02 10:37] VITALS: BMI 38.3
--- NOTE | 2020-03-01 12:56 | BI_ITS ---
MAMMOGRAPHY - BILATERAL SCREENING REASON FOR EXAM: Female, 59 years old. Routine annual screening examination. PERTINENT HISTORY: Aunt with breast cancer. History of remote right excisional breast biopsy. TECHNIQUE: Digital bilateral breast mary (3D mammographic acquisition) in the CC and MLO projections. 2-D mediolateral oblique (MLO) and craniocaudad (CC) views of both breasts were obtained. CAD: Full Field Digital Mammography with Computer Added Detection was performed. COMPARISON: Comparison is made with prior examination dated 07/17/2018 and 06/06/2015. FINDINGS: Breast Composition: There are scattered areas of fibroglandular density. There are no dominant masses or suspicious calcifications. Stable calcified linear density in the slightly lateral retroareolar region of the right breast. Stable fat-containing right axillary lymph node. No other significant abnormalities are identified. There has been no significant change since the prior study. BI/SCREEN MAMM (CAD) W/MARY BILAT IMPRESSION: Stable bilateral screening mammogram. Yearly follow-up mammogram recommended. (A) ASSESSMENT CATEGORY: BIRADS Category 2: Benign. A letter regarding these results will be sent to the patient by the facility within 30 days. Approximately 10% of breast cancers are not detected by mammography. A normal mammogram should not delay biopsy of a clinically suspicious abnormality. [id number] Electronically Signed: Edilberto Wright, at 14:12 EST , Service support ,
== END ==
PROVIDERS: PCP Family Medicine; Referring Provider Family Medicine; Visit Provider Family Medicine
DX: Z12.31 Encounter for screening mammogram for malignant neoplasm of breast (principal); Z80.3 Family history of malignant neoplasm of breast
CPT/HCPCS: 77063; 77067

== ENCOUNTER → 2020-03-31 15:03 | Outpatient (CLI) | payer MEDICAID, SELFPAY ==
[2020-02-02 10:37] VITALS: BMI 38.3
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
== END ==
PROVIDERS: PCP Family Medicine
DX: S72.462 Displaced supracondylar fracture with intracondylar extension of lower end of left femur (principal); X58.XXXD Exposure to other specified factors, subsequent encounter
CPT/HCPCS: 73700

== ENCOUNTER → 2020-04-25 14:28 | Outpatient (CLI) | payer MEDICAID, SELFPAY ==
[2020-02-02 10:37] VITALS: BMI 38.3
[2020-04-25 15:42] LABS: Vitamin D,25 Hydroxy 32.3 ng/mL
== END ==
PROVIDERS: PCP Family Medicine
DX: S72.462 Displaced supracondylar fracture with intracondylar extension of lower end of left femur (principal); X58.XXXD Exposure to other specified factors, subsequent encounter
CPT/HCPCS: 36415; 82306

== ENCOUNTER → 2020-05-30 12:35 | Outpatient (CLI) | payer MEDICAID, SELFPAY ==
[2020-05-01 13:02] VITALS: BMI 39.6
--- NOTE | 2020-05-31 08:38 | PFT ---
INTRODUCTION: The patient is a 59-year-old female that presents for pulmonary function studies secondary to a diagnosis of high risk medication use. Respiratory therapy reports good patient effort. Bronchodilators were used during testing. INTERPRETATION: Forced expiration spirometry demonstrates no evidence of a large airways obstructive ventilatory defect. There was no significant response to aerosolized bronchodilators. Spirograms are of good quality and plateau normally. Body plethysmography was performed and reveals a decreased TLC to 4.34 L, 79% of predicted, indicative of a mild restrictive ventilatory defect. Diffusing capacity by single breath CO is reduced to 55% of predicted. IMPRESSION: Mild restrictive ventilatory impairment with moderate reduction in diffusing capacity.
== END ==
PROVIDERS: PCP Family Medicine; Referring Provider Physician Assistant Medical; Visit Provider Physician Assistant Medical
DX: Z79.899 Other long term (current) drug therapy (principal)
CPT/HCPCS: 94060; 94726; 94729

== ENCOUNTER 2020-06-06 13:00 | Outpatient (RCR) | payer MEDICAID, SELFPAY ==
[2020-02-02 10:37] VITALS: BMI 38.3
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
--- NOTE | 2020-08-25 11:18 | HP.PTDCNRP_ITS ---
TIFFANY YOST was seen in my office for initial evaluation on 03/29/20. The following Plan of Care was established for this patient: Initial Frequency: 2x /Week Initial Duration: 12WEEKS Patient/Client Instruction: Educate patient on: Condition, Plan of Care For the Purpose of:: To decrease pain, To decrease swelling/inflammation, To increase ROM, To improve muscle performance and motor function, To improve ability to perform ADL's, To increase tolerance to activity/condition/position, To improve performance and independence with ADL's, To improve ability of physical actions for home/community/work/leisure, To improve gait and locomotor functions, To improve health of tissue, To increase flexibility/ROM, To improve balance, To improve safety with gait, To assume or resume ADL's, To improve health and function, To improve self management, To improve ability to perform tasks related to life management, To improve tolerance to ADL's Therapeutic Exercise to Include: Strength training, Balance training, Body mechanics, Flexibilty training, Gait and locomotor training For the Purpose of:: To decrease pain, To decrease swelling/inflammation, To increase ROM, To improve muscle performance and motor function, To improve ability to perform ADL's, To increase tolerance to activity/condition/position, To improve performance and independence with ADL's, To improve ability of physical actions for home/community/work/leisure, To improve gait and locomotor functions, To increase flexibility/ROM, To improve balance, To improve safety with gait, To assume or resume ADL's, To improve safety, To improve health and function, To improve self management, To improve ability to perform tasks related to life management, To improve tolerance to ADL's Functional Training to Include: Gait training For the Purpose of:: To improve muscle performance and motor function, To increase tolerance to activity/condition/position, To improve ability of physical actions for home/community/work/leisure, To improve gait and locomotor functions, To improve safety with gait IF ES: Yes Other electric stimulation: Yes Cryotherapy (ice pack, ice massage): Yes Thermo therapy (hot pack): Yes Vasopneumatic device: Yes For the Purpose of:: To decrease pain, To decrease swelling/inflammation, To increase ROM, To improve muscle performance and motor function, To improve ability to perform ADL's, To increase tolerance to activity/condition/position, To improve performance and independence with ADL's, To improve ability of physical actions for home/community/work/leisure, To improve gait and locomotor functions, To increase flexibility/ROM, To improve balance, To improve safety with gait, To improve safety, To improve health and function, To improve self management, To improve ability to perform tasks related to life management This patient was last seen in our office . Pertinent comments regarding their Physical therapy will appear below: Patient seen for PT for femur fracture s/p surgery focusing on ROM and stre ngthening, gait training ,Attempted to use bone stimulator but not healing thus under went revision. At this point I will be discontinuing this patient from physical therapy. I would be happy to see this patient again in the future if found appropriate by the physician. Thank you! Tong Ford, PT, Cert MDT, OCS
== END 2020-06-06 19:00 | disposition home or self-care (01) ==
LOC: PT 13:00
PROVIDERS: PCP Family Medicine
DX: S72.462 Displaced supracondylar fracture with intracondylar extension of lower end of left femur (principal)
CPT/HCPCS: 97110; 97162

== ENCOUNTER → 2020-06-13 13:49 | Outpatient (CLI) | payer MEDICAID, SELFPAY ==
[2020-05-01 13:02] VITALS: BMI 39.6
--- NOTE | 2020-06-13 13:54 | CT_ITS ---
STUDY: CT LEFT FEMUR WITHOUT CONTRAST REASON FOR EXAM: Female, 59 years old. DISPL SUPRCNDL FX W/INTRANDL EXTN LOW END 1 FEMUR -- LEFT RADIATION DOSAGE (If Supplied By Facility): CTDIvol = ( 36.38 ) mGy, DLP = ( 1896.39 ) mGycm TECHNIQUE: Transaxial CT imaging of the femur was performed. Sagittal and coronal images were reconstructed. Individualized dose optimization techniques were used for this CT. COMPARISON: FINDINGS: No change in the healing fractures of the lateral femoral condyle and the spiral fracture the distal shaft of the femur with a lateral plate and screws with some persistent fracture lines most healed within the femoral condyle suggestive of delayed union. Normal visualized soft tissue structure. CT/Extremity Lower without Contra IMPRESSION: No change from 03/31/2020. Electronically Signed: Chet Powell MD at 10:20 EDT Tel , Service support ,
== END ==
PROVIDERS: PCP Family Medicine
DX: S72.462 Displaced supracondylar fracture with intracondylar extension of lower end of left femur (principal); X58.XXXD Exposure to other specified factors, subsequent encounter
CPT/HCPCS: 73700

== ENCOUNTER 2020-11-24 15:00 | Outpatient (RCR) | payer MEDICAID, SELFPAY ==
[2020-06-21 09:57] VITALS: BMI 39.6
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
--- NOTE | 2020-09-28 16:34 | HP.PTREVAL_ITS ---
Shawna Baldwin, LAURA-C, It has been my pleasure to treat TIFFANY YOST over the last 4 visits for revision of L femur fracture. Please see the progress note below for an update on the physical therapy plan of care! Subjective: Pt. reports overall doing well. She had a another procedure since I saw her last. they had to tighten the screws. She reports being WBAT now. She reports being sore and tired after last visit. Objective/Function: L knee ROM: 0-0-110deg. actively, 0-0-115 passively. MMT: RLE: ankle 5/5 throughout; knee 4+/5 ext , 4+/5 flexion; hip- flexion 4/5, abd 4/5, ext 4/5. Txs- patient able to complete with FWW with proper technique with WBAT. Pt. compelted 10 reps with use of UEs in 30sec. TUsec with FWW. Pt. ambulated 75' with FWW with flexed posture and heavy use of AD. Pt. had decreased step length bilaterally, but reports no pain. Pt. has marked edema when I took off her nagi bandage, worst down by her ankle. She reports not taking off since surgery. Her incision at her lateral knee looked good, but the bandage that was on there had rolled up and hardened and was causing pressure to the lat er aspect of her knee. I removed this and placed a simple ABD pad to cover. I did not remove the bandage superior to her knee as this was only partially rolled down, but was not effecting her skin. She has 2+ pitting edema at her foot and ankle. She keeps her legs down mostly throughout the day and has not changed bandage which had rolled causing tourniquet like effect. Edema improved once changed. Plan Plan: Cont. with POC as tolerated. Progress gait, txs and functional strengthening. Balance/Gait/Functional tests - Balance/Special Test Scores Lower Extremity Functional Score: 20 Goals Goal 1:: LTG: pt. to be I with HEP for BLE strengthening and ROM. Goal Time Frame: 4-6 Weeks Goal Progress: Progressing Goal 2:: STG: pt. to have increased L knee ROM to at least 0-0-110deg without increase in symptoms. Goal Time Frame: 2-4 Weeks Goal Progress: Goal Met Goal 3:: LTG: Pt. to have increased BLE strength to at least 4+/5 through out allowing for increased safety with transfers and gait. Goal Time Frame: 4-6 Weeks Goal Progress: Progressing Goal 4:: LTG: Pt. to have improved gait pattern with FWW following proper WBing status. Goal Time Frame: 4-6 Weeks Goal Progress: Progressing Goal 5:: LTG: Pt. to negotiate steps with 2 HR with step to pattern allowing for safe use with in home. Goal Time Frame: 4-6 Weeks Goal Progress: Progressing Goal 6:: NEW GOAL: Pt. to ambulate 300' with FWW with improved step length and tempo. Goal Time Frame: 4-6 Weeks Goal Progress: Progressing Anticipated Interventions Patient/Client Instruction: Educate patient on: Condition, Plan of Care, Risk Factors, Benefits of Fitness Program For the Purpose of:: To improve health and function, To foster healthy habits, To improve decision making, To facilitate caregiver knowledge, To improve self management, To prevent re-injury Therapeutic Exercise to Include: Strength training, Endurance training, Balance training, Coordination, Body mechanics, Postural training, Flexibilty training, Gait and locomotor training, Passive ROM, Active ROM, Dynamic Lumbar Stabilization For the Purpose of:: To decrease pain, To decrease swelling/inflammation, To increase ROM, To improve nutrient delivery to tissue, To increase oxygenation perfusion, To improve muscle performance and motor function, To improve ability to perform ADL's, To increase tolerance to activity/condition/position, To improve performance and independence with ADL's, To decrease level of supervision to perform tasks, To improve gait and locomotor functions, To improve health of tissue, To decrease soft tissue restriction, To increase flexibility/ROM, To improve endurance, To improve balance, To improve safety with gait Please do not hesitate to contact me at [phone] by phone or if you have questions or concerns regarding this new plan of care! Sincerely, Dejon Ma DPT
--- NOTE | 2020-11-13 10:04 | HP.PTREVAL_ITS ---
Shawna Baldwin, LAURA-C, It has been my pleasure to treat TIFFANY YOST over the last 12 visits for revision of L femur fracture. Please see the progress note below for an update on the physical therapy plan of care! Subjective: Pt. reports being pretty sore after her last visit. Pt. reports I know I will be sore, but I have to start doing more at home as well. She reports attempting to walk more at home x4 attempts throughout home and to mail box. Pt. reports L knee is sore, but is more at distal femur, quad tendon region. No N/T noted. Objective/Function: ROM. Pt. has decent ROM, able to achieve TKE of BLEs. Pt. does have marked weakness in her L leg. L knee ext 4/5 (but has increased weakness in final 20deg of knee ext 3-/5 in this range), flexion 4/5, HIp: abd 4/5, flexion 4/5. GAIT: Pt. is able to ambulate up to 132' with FWW and WC follow. She needs frequent reminders to increase step length. She tends to have decreased stance phase on LLE. I just trust it to hold me up. Plan Plan: Cont. to progress BLE strengthening, gait progressing, stair negotiation, core strengthening. Balance/Gait/Functional tests - Balance/Special Test Scores Lower Extremity Functional Score: 20 Goals Goal 1:: LTG: pt. to be I with HEP for BLE strengthening and ROM. Goal Time Frame: 4-6 Weeks Goal Progress: Progressing Goal 2:: STG: pt. to have increased L knee ROM to at least 0-0-110deg without increase in symptoms. Goal Time Frame: 2-4 Weeks Goal Progress: Goal Met Goal 3:: LTG: Pt. to have increased BLE strength to at least 4+/5 through out allowing for increased safety with transfers and gait. Goal Time Frame: 4-6 Weeks Goal Progress: Progressing Goal 4:: LTG: Pt. to have improved gait pattern with FWW following proper WBing status. Goal Time Frame: 4-6 Weeks Goal Progress: Progressing Goal 5:: LTG: Pt. to negotiate steps with 2 HR with step to pattern allowing for safe use with in home. Goal Time Frame: 4-6 Weeks Goal Progress: Progressing Goal 6:: NEW GOAL: Pt. to ambulate 300' with FWW with improved step length and tempo. Goal Time Frame: 4-6 Weeks Goal Progress: Progressing Anticipated Interventions Patient/Client Instruction: Educate patient on: Condition, Plan of Care, Risk Factors, Benefits of Fitness Program For the Purpose of:: To improve health and function, To foster healthy habits, To improve decision making, To facilitate caregiver knowledge, To improve self management, To prevent re-injury Therapeutic Exercise to Include: Strength training, Endurance training, Balance training, Coordination, Body mechanics, Postural training, Flexibilty training, Gait and locomotor training, Passive ROM, Active ROM, Dynamic Lumbar Stabilizat ion For the Purpose of:: To decrease pain, To decrease swelling/inflammation, To increase ROM, To improve nutrient delivery to tissue, To increase oxygenation perfusion, To improve muscle performance and motor function, To improve ability to perform ADL's, To increase tolerance to activity/condition/position, To improve performance and independence with ADL's, To decrease level of supervision to perform tasks, To improve gait and locomotor functions, To improve health of tissue, To decrease soft tissue restriction, To increase flexibility/ROM, To improve endurance, To improve balance, To improve safety with gait Please do not hesitate to contact me at [phone] by phone or if you have questions or concerns regarding this new plan of care! Sincerely, Dejon Ma DPT
--- NOTE | 2021-01-15 13:49 | HP.PT.NRP ---
TIFFANY YOST was seen in my office for initial evaluation on 08/25/20. The following Plan of Care was established for this patient: Initial Frequency: 2x /Week Initial Duration: 8 weeks Patient/Client Instruction: Educate patient on: Condition, Plan of Care, Risk Factors, Benefits of Fitness Program For the Purpose of:: To improve health and function, To foster healthy habits, To improve decision making, To facilitate caregiver knowledge, To improve self management, To prevent re-injury Therapeutic Exercise to Include: Strength training, Endurance training, Balance training, Coordination, Body mechanics, Postural training, Flexibilty training, Gait and locomotor training, Passive ROM, Active ROM, Dynamic Lumbar Stabilization For the Purpose of:: To decrease pain, To decrease swelling/inflammation, To increase ROM, To improve nutrient delivery to tissue, To increase oxygenation perfusion, To improve muscle performance and motor function, To improve ability to perform ADL's, To increase tolerance to activity/condition/position, To improve performance and independence with ADL's, To decrease level of supervision to perform tasks, To improve gait and locomotor functions, To improve health of tissue, To decrease soft tissue restriction, To increase flexibility/ROM, To improve endurance, To improve balance, To improve safety with gait This patient was last seen in our office 11/24/20. Pertinent comments regarding their Physical therapy will appear below: Pt. has not been seen in 6 weeks. She did have a TKA and will be DC from PT at this point in time. At this point I will be discontinuing this patient from physical therapy. I would be happy to see this patient again in the future if found appropriate by the physician. Thank you! Dejon Ma, DPT Balance/Gait/Functional tests - Balance/Special Test Scores Lower Extremity Functional Score: 20
== END 2020-11-24 19:00 | disposition home or self-care (01) ==
LOC: PT 15:00
PROVIDERS: PCP Family Medicine; Referring Provider Nurse Practitioner Family; Visit Provider Nurse Practitioner Family
DX: Z47.89 Encounter for other orthopedic aftercare (principal)
CPT/HCPCS: 97110; 97161; 97164

== ENCOUNTER 2021-03-02 08:54 | Outpatient (CLI) | payer MEDICAID, SELFPAY ==
--- NOTE | 2021-03-02 08:56 | BI_ITS ---
MAMMOGRAPHY - BILATERAL SCREENING REASON FOR EXAM: Female, 60 years old. Routine annual screening examination. PERTINENT HISTORY: Non-contributory. Remote right excisional breast biopsy. TECHNIQUE: Digital bilateral breast mary (3D mammographic acquisition) in the CC and MLO projections. 2-D mediolateral oblique (MLO) and craniocaudad (CC) views of both breasts were obtained. CAD: Full Field Digital Mammography with Computer Added Detection was performed. COMPARISON: Comparison is made with prior study dated 03/01/2020 and 07/17/2018. FINDINGS: Breast Composition: There are scattered areas of fibroglandular density. There are no dominant masses or suspicious calcifications. Stable linear calcification in the slightly lateral retroareolar region of the right breast. Stable fat-containing right axillary lymph node. No other significant abnormalities are identified. There has been no significant change since the prior study. BI/SCRN MAMM (CAD)W/MARY BILAT IMPRESSION: Stable bilateral screening mammogram. Yearly follow-up mammogram recommended. (A) ASSESSMENT CATEGORY: BIRADS Category 2: Benign. A letter regarding these results will be sent to the patient by the facility within 30 days. Approximately 10% of breast cancers are not detected by mammography. A normal mammogram should not delay biopsy of a clinically suspicious abnormality. [id number] Electronically Signed: Edilberto Wright MD at 12:14 EST , Service support ,
== END 2021-03-02 23:59 | disposition short-term general hospital (02) ==
LOC: OPBI 08:54
PROVIDERS: PCP Family Medicine; Referring Provider Physician Assistant; Visit Provider Physician Assistant
DX: Z12.31 Encounter for screening mammogram for malignant neoplasm of breast (principal)
CPT/HCPCS: 77063; 77067

== ENCOUNTER 2021-05-24 15:12 | Outpatient (CLI) | payer MEDICAID, SELFPAY ==
[2021-05-24 16:38] LABS: Absolute Neutrophil Count 5.3 X10^3/uL (2.0-7.7); Basophil# 0.08 X10^3/uL; Eosinophil# 0.09 X10^3/uL; Eosinophils% 1.1 % (0-5); Hematocrit 41.7 % (37-47); Hemoglobin 13.3 g/dL (12.0-15.0); Lymphocyte % 24.2 % (19-41); Mean Corp Hgb Conc 31.9 g/dL (32-36); Mean Corpuscular Hgb 29.7 pg (27.0-32.0); Mean Corpuscular Volume 93.1 fL (81-99); Monocyte# 0.49 X10^3/uL; Monocyte% 6.2 % (0-10); NRBC Flagged by Analyzer 0 % (0-5); Neutrophil # 5.27 X10^3/uL (2.7-7.7); Neutrophil % 67.1 % (47-70); Platelet Count 261 K/mm3 (150-450); RBC Distribution Width CV 15.6 % (11.6-14.6); RBC Distribution Width SD 53.3 fl (35.1-43.9); Red Blood Count 4.48 M/mm3 (4.2-5.4); White Blood Count 7.9 K/mm3 (4.4-11.0)
[2021-05-24 16:56] LABS: Vitamin D,25 Hydroxy 43.8 ng/mL
[2021-05-24 17:07] LABS: ALB/GLOB Ratio 0.7 RATIO (0.9-2.4); AST(SGOT) 27 U/L (15-37); Alanine Aminotransfer ALT/SGPT 27 U/L (13-56); Alkaline Phosphatase 124 U/L (45-117); Anion Gap 6 (5-15); BUN 10 mg/dL (7-18); BUN/Creat Ratio 8.8 RATIO (10-20); Calcium,Total 8.7 mg/dL (8.5-10.1); Chloride 94 mmol/L (98-107); Cholesterol 178 mg/dL (200); Creatinine, Serum 1.13 mg/dL (0.55-1.02); EST Glomerular Filtration Rate 52 mL/min (>60); Est Glom Filt Rate - Afr Amer 63 mL/min (>60); Globulin 4.1 g/dL (2.2-4.2); Glucose 124 mg/dL (74-106); High Density Lipoprotein 78 mg/dL; Protein, Total 7.1 g/dL (6.4-8.2); Sodium Level 136 mmol/L (136-145); Thyroid Stim Hormone (TSH) 0.97 uIU/mL (0.358-3.74); Triglycerides 176 mg/dL; Very Low Density Lipoprotein 35 mg/dL (5-40)
[2021-05-24 17:09] LABS: BNP,B-Type NATRIURETIC PEPTIDE 55.4 pg/mL (0-100)
== END 2021-05-24 23:59 | disposition home or self-care (01) ==
LOC: BIMLAB 15:13
PROVIDERS: PCP Family Medicine; Referring Provider Physician Assistant; Visit Provider Physician Assistant
DX: I48.91 Unspecified atrial fibrillation (principal); I10 Essential (primary) hypertension; E66.9 Obesity, unspecified; G47.33 Obstructive sleep apnea (adult) (pediatric); R60.0 Localized edema; R06.00 Dyspnea, unspecified; E78.5 Hyperlipidemia, unspecified; E03.9 Hypothyroidism, unspecified; E55.9 Vitamin D deficiency, unspecified
CPT/HCPCS: 36415; 80053; 80061; 82306; 83880; 84443; 85025

== ENCOUNTER 2021-06-13 13:37 | Outpatient (CLI) | payer MEDICAID, SELFPAY ==
--- NOTE | 2021-06-13 13:38 | ECHOCS_ITS ---
Reason For Study: Dyspnea/SOB Procedure This was a 2D Doppler, Color Flow transthoracic echocardiogram. Technically difficult study due to patients body habiuts. Attempted images with patient in left lateral and supine positions. Contrast injection was performed. The study was technically difficult. Contrast injection was performed. Exam performed in department. Left Ventricle Based upon the 2D echocardiographic and contrast enhanced images obtained there appears to be grossly normal left ventricular size, wall motion, and systolic function. The estimated ejection fraction is 70 %. Transmitral doppler flow suggestive of impaired relaxation of left ventricle. Right Ventricle Based upon the 2D echocardiographic and contrast enhanced images obtained there appears to be grossly normal right ventricular size and systolic function. Atria The left atrium is not well visualized. The right atrium is not well visualized. No doppler evidence for ASD. Mitral Valve There is no mitral annular calcification. Mitral valve not well visualized. Tricuspid Valve The tricuspid valve is not well visualized. Aortic Valve The aortic valve is not well visualized. Pulmonic Valve The pulmonic valve is not well visualized. Great Vessels The aortic root is not well visualized. Pericardium/Pleural No pericardial effusion. Medication 22 gauge I.V. with prn adaptor inserted into right arm. Diluted definity 3ml given slow IV push to enhance endocardial definition. MMode/2D Measurements & Calculations LVIDd: 4.5 cm IVSd: 1.00 cm LA dimension: 4.1 cm LVIDs: 2.9 cm LVPWd: 1.2 cm FS: 36.1 % Time Measurements MV dec time: 0.21 sec Doppler Measurements & Calculations MV E max bala: 62.8 cm/sec Lat Peak E' Bala: 12.0 cm/sec Med Peak E' Bala: 7.4 cm/sec MV A max bala: 67.7 cm/sec E/E' lat: 5.2 E/E' med: 8.5 MV E/A: 0.93 MV V2 max: 90.5 cm/sec MV P1/2t max bala: 88.6 cm/sec Ao V2 max: 119.1 cm/sec MV max P.3 mmHg MV P1/2t: 69.2 msec Ao max P.7 mmHg MV V2 mean: 54.6 cm/sec MV mean P.4 mmHg MV dec slope: 375.2 cm/sec2 MV V2 VTI: 20.7 cm MVA(P1/2t): 3.2 cm2 LV V1 max: 106.9 cm/sec PA V2 max: 86.7 cm/sec LV V1 max P.6 mmHg ECHO/Echo Complete W/ Contrast Interpretation Summary The study was technically difficult. Contrast injection was performed. Based upon the 2D echocardiographic and contrast enhanced images obtained there appears to be grossly normal left ventricular size, wall motion, and systolic function. The estimated ejection fraction is 70 %. Transmitral doppler flow suggestive of impaired relaxation of left ventricle Ordering Physician: Sweta Salazar Referring Physician: Mansoor Chavarria Performed By: Frederick Brian RCS
== END 2021-06-13 23:59 | disposition home or self-care (01) ==
LOC: CVS 13:38
PROVIDERS: PCP Family Medicine; Visit Provider Physician Assistant
DX: G47.33 Obstructive sleep apnea (adult) (pediatric) (principal); R06.02 Shortness of breath
CPT/HCPCS: 93306; Q9957; A4216; C8929

== ENCOUNTER 2021-07-19 14:30 | Outpatient (RCR) | payer MEDICAID, SELFPAY ==
--- NOTE | 2021-02-08 08:01 | HP.PTEVAL ---
Patient's Visit Information TIFFANY YOST is a 60 year old F [facility] with a diagnosis of Left knee revision, Total knee replacement. Date of Evaluation: 02/07/21 Physical Therapist: Dejon Ma DPT - Visit Plan Frequency: 2-3x /Week Duration: 5 Plan: Progress knee ROM as directed by surgeon: every 2 weeks increase by 20 deg flexion, primarily focus on knee extension. Increase WB tolerance for gait 25% for 2 wks, 50% for 2 weeks, 75% for 2 weeks, then full WB as tolerated. 02/08/21 current: 25% WB, 40deg of flexion. Improve strength of LE with focus on quads, hamstrings, hip flexors and gluts. - Subjective Patient presents to physical therapy with a history of total Left knee replacement on December 27. Pt states she has not experienced a lot of pain but does note slight pain going along lateral side of leg. Pt states she has not been putting weight through L LE per surgeon instruction. Starting today patient is able to start weightbearing 25%. Pt has not been able to stand up to do dishes, and only puts weight through it to get into the bathtub. Pt states she has been working on bending her knee independently, at this point she reports she is cleared to flex knee to 40 degrees. Pt states she has some numbness in her foot and knee, but this was present after accident years ago. Pt states she has been able to do everything at home that she needs. Pt goals for therapy are to walk independently with no AD, and be able to ascend/descend stairs. - Pain Left Knee Pain Intensity (Out of 10): 0 Pain Intensity Range: 0, 2 - Objective ROM: Left knee : 0-11-109, Right: 3-0-126. STRENGTH: unable to perform SLR without extensor lag. OBSERVATION: L knee incision has no signs of infection, and is healing nicely. NEURO: light touch WNL bilaterally LE - Balance/Special Test Scores Lower Extremity Functional Score: 23 - Goals Goal 1:: Pt will be independent with HEP. Goal Time Frame: 4-6 Weeks Goal 2:: STG: pt will improve ROM to 0 deg of extension. Goal Time Frame: 2-4 Weeks Goal 3:: LTG: pt will perform 10 SLR with no knee extensor lag. Goal Time Frame: 4-6 Weeks Goal 4:: LTG: Pt will decrease LEFS disability to < 40%. Goal Time Frame: 4-6 Weeks Goal 5:: LTG: Pt will ambulate 100' with the use of SPC. Goal Time Frame: 8-12 Weeks - Rehabilitation Potential Physical Therapy Diagnosis: decreased L knee ROM, joint swelling, gait restrictions, weakness Rehabilitation Potential: Good - Anticipated Interventions Patient/Client Instruction: Educate patient on: Condition, Plan of Care, Risk Factors, Benefits of Fitness Program For the Purpose of:: To decrease pain, To decrease swelling/inflammation, To increase ROM, To improve nutrient delivery to tissue, To improve ability to perform ADL's, To improve performance and independence with ADL's, To improve ability of physical actions for home/community/work/leisure, To improve gait and locomotor functions, To improve health of tissue, To increase flexibility/ROM, To improve safety with gait, To assume or resume ADL's, To improve health and function, To prevent re-injury, To improve tolerance to ADL's Therapeutic Exercise to Include: Strength training, Body mechanics, Flexibilty training, Passive ROM, Active ROM For the Purpose of:: To decrease pain, To decrease swelling/inflammation, To increase ROM, To improve nutrient delivery to tissue, To improve muscle performance and motor function, To improve ability to perform ADL's, To increase tolerance to activity/condition/position, To improve performance and independence with ADL's, To improve ability of physical actions for home/community/work/leisure, To improve gait and locomotor functions, To increase flexibility/ROM, To improve endurance, To improve balance, To improve safety with gait, To improve health and function, To improve self management, To improve tolerance to ADL's Manual Therapy Techniques to Include: Passive ROM For the Purpose of:: To decrease pain, To increase ROM Cryotherapy (ice pack, ice massage): Yes For the Purpose of:: To decrease pain, To decrease swelling/inflammation, To increase ROM Thank you for the opportunity to evaluate your patient. For Medicare and Medicare HMO plans, please review the plan of care and approve it. It will need to be FAXED BACK to us at [phone] for Medicare purposes. For Medicare only, by signing this I certify the plan of care. Please let me know if there are questions or concerns regarding this plan of care. Physician Signature: Date:
--- NOTE | 2021-03-19 14:59 | HP.PTREVAL ---
NILE BRANDON, It has been my pleasure to treat TIFFANY YOST over the last 10 visits for Left knee revision, Total knee replacement. Please see the progress note below for an update on the physical therapy plan of care! Subjective: Pt. reports overall doing better. She is concerned about having some grinding with OKC knee flexion/extension. Goes away with CKC movements. Pt. is still 75% WBing on her LLE. 100% on wed. Pt. to follow up with physician next week. No pain currently. Objective/Function: ROM: 0-0-119deg. MMT: Pt. has improved quad set, but still has ~20dge lag with SLR. She has 4/5 strength in mid range of knee extension, but 2+/5 in final 20deg of extension., knee flexion 5/5, hip: abd 4/5, flexion 4-/5, ext 4/5. GAIT: Pt. ambulates with improved pattern with gait pattern. She requires FWW for WBing at this point in time. She still has generalized flexed posture. She has good ROM, but presents with end range extension weakness. Pt. is still 75% Wbing, to be 100% by middle of the week. I have been adding in [place] stim to increase quad muscle activation. Seems to be improving. Plan Plan: Pt. to continue with POC working x3 day per week with focus on quad, glute strengthening. Continue to progress CKC exercises as she has better tolerance with these movements. Pt. to follow up with physician next week. Balance/Gait/Functional tests - Balance/Special Test Scores Lower Extremity Functional Score: 27 TUG Test Time Seconds: 39.8 WOMAC Total Score: 72 WOMAC Percentage: 25.0000 Goals Goal 1:: Pt will be independent with HEP. Goal Time Frame: 4-6 Weeks Goal Progress: Progressing Goal 2:: STG: pt will improve ROM to 0 deg of extension. Goal Time Frame: 2-4 Weeks Goal Progress: Progressing Goal 3:: LTG: pt will perform 10 SLR with no knee extensor lag. Goal Time Frame: 4-6 Weeks Goal Progress: Progressing Goal 4:: LTG: Pt will decrease LEFS disability to < 40%. Goal Time Frame: 4-6 Weeks Goal Progress: Progressing Goal 5:: LTG: Pt will ambulate 100' with the use of SPC. Goal Time Frame: 8-12 Weeks Goal Progress: Progressing Anticipated Interventions Patient/Client Instruction: Educate patient on: Condition, Plan of Care, Risk Factors, Benefits of Fitness Program For the Purpose of:: To decrease pain, To decrease swelling/inflammation, To increase ROM, To improve nutrient delivery to tissue, To improve ability to perform ADL's, To improve performance and independence with ADL's, To improve ability of physical actions for home/community/work/leisure, To improve gait and locomotor functions, To improve health of tissue, To increase flexibility/ROM, To improve safety with gait, To assume or resume ADL's, To improve health and function, To prevent re-injury, To improve tolerance to ADL's Therapeutic Exercise to Include: Strength training, Body mechanics, Flexibilty training, Passive ROM, Active ROM For the Purpose of:: To decrease pain, To decrease swelling/inflammation, To increase ROM, To improve nutrient delivery to tissue, To improve muscle performance and motor function, To improve ability to perform ADL's, To increase tolerance to activity/condition/position, To improve performance and independence with ADL's, To improve ability of physical actions for home/community/work/leisure, To improve gait and locomotor functions, To increase flexibility/ROM, To improve endurance, To improve balance, To improve safety with gait, To improve health and function, To improve self management, To improve tolerance to ADL's Manual Therapy Techniques to Include: Passive ROM For the Purpose of:: To decrease pain, To increase ROM Cryotherapy (ice pack, ice massage): Yes For the Purpose of:: To decrease pain, To decrease swelling/inflammation, To increase ROM Please do not hesitate to contact me at [phone] by phone or if you have questions or concerns regarding this new plan of care! Sincerely, Dejon Ma DPT
--- NOTE | 2021-04-27 16:20 | HP.PTREVAL ---
NILE BRANDON, It has been my pleasure to treat TIFFANY YOST over the last 23 visits for Left knee revision, Total knee replacement. Please see the progress note below for an update on the physical therapy plan of care! Subjective: Pt. reports overall doing better. She is having less popping in her knee and decreased episodes of giving away. She is walking more at home as well. Tryuing to use WC less. Objective/Function: ROM: L knee 0-0-119deg. MMT: Ankle 5/5 throughout; knee: ext 4-/5 but is lacking TKE secondary to weakness, knee flexion 5/5; hip: flexion 3+/5, abd 3+/5, ext 4-/5. Core strength: fair-. 6 MWT: 362feet with FWW, increased fatigue noted. Pt. has occasional antalgic pattern,. bed mobility: Independent without issues. stairs: step to pattern with heavy use of HRs. Pt. has improved stability with descending. Due to being non WBing for a significant for a large amount to time from all of her surgeries. Pt. has had a significant time in her WC resulting in marked significant quad weakness. I would like to continue to see her to work on quad strengthening with gait stability and endurance. MY concern is with her lack of knee extension strength causing her to ambulate with a limp. She need to progress her strength to improve this. Plan Plan: I would like to continue to see her to work on quad strengthening with gait stability and endurance. Balance/Gait/Functional tests - Balance/Special Test Scores Lower Extremity Functional Score: 37 TUG Test Time Seconds: 39.8 WOMAC Total Score: 72 WOMAC Percentage: 25.0000 Goals Goal 1:: Pt will be independent with HEP. Goal Time Frame: 4-6 Weeks Goal Progress: Goal Met Goal 2:: STG: pt will improve ROM to 0 deg of extension. NEW GOAL: Pt. to have increased LLE strength to 5/5 throughout. Goal Time Frame: 2-4 Weeks Goal Progress: Goal Met Goal 3:: LTG: pt will perform 10 SLR with no knee extensor lag. Goal Time Frame: 4-6 Weeks Goal Progress: Progressing Goal 4:: LTG: Pt will decrease LEFS disability to < 40%. Goal Time Frame: 4-6 Weeks Goal Progress: Progressing Goal 5:: LTG: Pt will ambulate 100' with the use of SPC. Goal Time Frame: 8-12 Weeks Goal Progress: Progressing Goal 6:: LTG: pt. to have increased ability to ambulate with FWW without antalgic pattern with normal pattern.. Goal Time Frame: 4-6 Weeks Goal Progress: Progressing Anticipated Interventions Patient/Client Instruction: Educate patient on: Condition, Plan of Care, Risk Factors, Benefits of Fitness Program For the Purpose of:: To decrease pain, To decrease swelling/inflammation, To increase ROM, To improve nutrient delivery to tissue, To improve ability to perform ADL's, To improve performance and independence with ADL's, To improve ability of physical actions for home/community/work/leisure, To improve gait and locomotor functions, To improve health of tissue, To increase flexibility/ROM, To improve safety with gait, To assume or resume ADL's, To improve health and function, To prevent re-injury, To improve tolerance to ADL's Therapeutic Exercise to Include: Strength training, Body mechanics, Flexibilty training, Passive ROM, Active ROM For the Purpose of:: To decrease pain, To decrease swelling/inflammation, To increase ROM, To improve nutrient delivery to tissue, To improve muscle performance and motor function, To improve ability to perform ADL's, To increase tolerance to activity/condition/position, To improve performance and independence with ADL's, To improve ability of physical actions for home/community/work/leisure, To improve gait and locomotor functions, To increase flexibility/ROM, To improve endurance, To improve balance, To improve safety with gait, To improve health and function, To improve self management, To improve tolerance to ADL's Manual Therapy Techniques to Include: Passive ROM For the Purpose of:: To decrease pain, To increase ROM Cryotherapy (ice pack, ice massage): Yes For the Purpose of:: To decrease pain, To decrease swelling/inflammation, To increase ROM Please do not hesitate to contact me at [phone] by phone or if you have questions or concerns regarding this new plan of care! Sincerely, Dejon Ma, MEDHATT
--- NOTE | 2021-06-25 15:18 | HP.PTREVAL_ITS ---
NILE BRANDON, It has been my pleasure to treat TIFFANY YOST over the last 30 visits for Left knee revision, Total knee replacement. Please see the progress note below for an update on the physical therapy plan of care! Subjective: Pt. reports being 40% better overall. Pt. reports no pain today, but still has some occurrences when her leg gives out on her. She is using walker almost exclusively, but admits to using to WC at home for convenience at times. Objective/Function: Pt. tolerated all PT well today. Patient has close to symmetrical B knee ROM. She continues to have increased weakness in her quad, but is improving. She has 4+/5 strength in her L quad in mid range, but struggles at achieving end range extension actively. She has full passive ROM. She is walking up to 400' with FWW with occasional LLE buckling (most likely due to quad weakness) is not painful. Pt. is able to negotiate steps with 2 HR without LOB, but is a challenge. Cont. to work on quad strengthening and stability in SLS on L side. Wean totally from WC to increase Wbing time on her LLE. Pt. consents. Plan Plan: Cont. to progress quad and LLE strength. Progress gait mechanics and functional mobility. Balance/Gait/Functional tests - Balance/Special Test Scores Lower Extremity Functional Score: 42 TUG Test Time Seconds: 39.8 WOMAC Total Score: 72 WOMAC Percentage: 25.0000 Goals Goal 1:: Pt will be independent with HEP. Goal Time Frame: 4-6 Weeks Goal Progress: Goal Met Goal 2:: STG: pt will improve ROM to 0 deg of extension. NEW GOAL: Pt. to have increased LLE strength to 5/5 throughout. Goal Time Frame: 2-4 Weeks Goal Progress: Goal Met Goal 3:: LTG: pt will perform 10 SLR with no knee extensor lag. Goal Time Frame: 4-6 Weeks Goal Progress: Progressing Goal 4:: LTG: Pt will decrease LEFS disability to < 40%. Goal Time Frame: 4-6 Weeks Goal Progress: Progressing Goal 5:: LTG: Pt will ambulate 100' with the use of SPC. Goal Time Frame: 8-12 Weeks Goal Progress: Progressing Goal 6:: LTG: pt. to have increased ability to ambulate with FWW without antalgic pattern with normal pattern.. Goal Time Frame: 4-6 Weeks Goal Progress: Progressing Anticipated Interventions Patient/Client Instruction: Educate patient on: Condition, Plan of Care, Risk Factors, Benefits of Fitness Program For the Purpose of:: To decrease pain, To decrease swelling/inflammation, To increase ROM, To improve nutrient delivery to tissue, To improve ability to perform ADL's, To improve performance and independence with ADL's, To improve ability of physical actions for home/community/work/leisure, To improve gait and locomotor functions, To improve health of tissue, To increase flexibility/ROM, To improve safety with gait, To assume or resume ADL's, To improve health and function, To prevent re-injury, To improve tolerance to ADL's Therapeutic Exercise to Include: Strength training, Body mechanics, Flexibilty training, Passive ROM, Active ROM For the Purpose of:: To decrease pain, To decrease swelling/inflammation, To increase ROM, To improve nutrient delivery to tissue, To improve muscle performance and motor function, To improve ability to perform ADL's, To increase tolerance to activity/condition/position, To improve performance and independence with ADL's, To improve ability of physical actions for home/community/work/leisure, To improve gait and locomotor functions, To increase flexibility/ROM, To improve endurance, To improve balance, To improve safety with gait, To improve health and function, To improve self management, To improve tolerance to ADL's Manual Therapy Techniques to Include: Passive ROM For the Purpose of:: To decrease pain, To increase ROM Cryotherapy (ice pack, ice massage): Yes For the Purpose of:: To decrease pain, To decrease swelling/inflammation, To increase ROM Please do not hesitate to contact me at [phone] by phone or Fax: if you have questions or concerns regarding this new plan of care! Sincerely, Dejon Ma DPT
== END 2021-07-19 19:00 | disposition home or self-care (01) ==
LOC: PT 14:30
PROVIDERS: PCP Family Medicine
DX: Z96.652 Presence of left artificial knee joint (principal)
CPT/HCPCS: 97110; 97161; 97164

== ENCOUNTER → 2021-07-31 | Outpatient (CLI) | payer MEDICAID, SELFPAY ==
[2021-07-31 16:54] LABS: Anion Gap 8 (5-15); BUN 11 mg/dL (7-18); BUN/Creat Ratio 8.5 RATIO (10-20); Calcium,Total 9.3 mg/dL (8.5-10.1); Chloride 96 mmol/L (98-107); Creatinine, Serum 1.29 mg/dL (0.55-1.02); EST Glomerular Filtration Rate 45 mL/min (>60); Est Glom Filt Rate - Afr Amer 54 mL/min (>60); Glucose 129 mg/dL (74-106); Potassium 3.3 mmol/L (3.5-5.1); Sodium Level 139 mmol/L (136-145)
== END | disposition home or self-care (01) ==
LOC: BIMLAB 14:36
PROVIDERS: PCP Family Medicine; Referring Provider Physician Assistant; Visit Provider Physician Assistant
DX: I10 Essential (primary) hypertension (principal); R60.0 Localized edema
CPT/HCPCS: 36415; 80048

== ENCOUNTER → 2022-03-05 | Outpatient (CLI) | payer MEDICAID, SELFPAY ==
--- NOTE | 2022-03-05 12:51 | BI_ITS ---
MAMMOGRAPHY - BILATERAL SCREENING REASON FOR EXAM: Female, 61 years old. Routine annual screening examination. PERTINENT HISTORY: Aunt with breast cancer. Remote right excisional breast biopsy. TECHNIQUE: Digital bilateral breast mary (3D mammographic acquisition) in the CC and MLO projections. 2-D mediolateral oblique (MLO) and craniocaudad (CC) views of both breasts were obtained. CAD: Full Field Digital Mammography with Computer Added Detection was performed. COMPARISON: Comparison is made with prior examination dated 03/02/2021 and 03/01/2020. FINDINGS: Breast Composition: There are scattered areas of fibroglandular density. There are no dominant masses or suspicious calcifications. Stable linear calcification is once again seen in the slightly lateral retroareolar region of the right breast. Stable fat-containing right axillary lymph node. No other significant abnormalities are identified. There has been no significant change since the prior study. BI/SCRN MAMM (CAD)W/MARY BILAT IMPRESSION: Stable bilateral screening mammogram. Yearly follow-up mammogram recommended. (A) ASSESSMENT CATEGORY: BIRADS Category 2: Benign. A letter regarding these results will be sent to the patient by the facility within 30 days. Approximately 10% of breast cancers are not detected by mammography. A normal mammogram should not delay biopsy of a clinically suspicious abnormality. [id number] Electronically Signed: Edilberto Wright MD at 14:35 EST ,
== END | disposition home or self-care (01) ==
LOC: OPBI 12:48
PROVIDERS: PCP Family Medicine; Visit Provider Family Medicine
DX: Z12.31 Encounter for screening mammogram for malignant neoplasm of breast (principal)
CPT/HCPCS: 77063; 77067

== ENCOUNTER → 2022-04-02 | Outpatient (CLI) | payer MEDICAID, SELFPAY ==
[2022-04-02 15:56] LABS: ALB/GLOB Ratio 0.7 RATIO (0.9-2.4); AST(SGOT) 66 U/L (15-37); Alanine Aminotransfer ALT/SGPT 63 U/L (13-56); Albumin, Serum 2.8 g/dL (3.2-5.0); Alkaline Phosphatase 125 U/L (45-117); Anion Gap 7 (5-15); BUN 10 mg/dL (7-18); BUN/Creat Ratio 10.1 RATIO (10-20); Calcium,Total 9.3 mg/dL (8.5-10.1); Chloride 100 mmol/L (98-107); Cholesterol 156 mg/dL (200); EST Glomerular Filtration Rate 60 mL/min (>60); Est Glom Filt Rate - Afr Amer 73 mL/min (>60); Globulin 4.3 g/dL (2.2-4.2); Glucose 124 mg/dL (74-106); High Density Lipoprotein 80 mg/dL; Potassium 4.3 mmol/L (3.5-5.1); Protein, Total 7.1 g/dL (6.4-8.2); Sodium Level 139 mmol/L (136-145); Thyroid Stim Hormone (TSH) 0.21 uIU/mL (0.358-3.74); Triglycerides 146 mg/dL; Very Low Density Lipoprotein 29 mg/dL (5-40)
== END | disposition home or self-care (01) ==
LOC: BIMLAB 13:25
PROVIDERS: PCP Family Medicine; Referring Provider Family Medicine; Visit Provider Family Medicine
DX: I10 Essential (primary) hypertension (principal); E66.9 Obesity, unspecified; G47.30 Sleep apnea, unspecified; E03.9 Hypothyroidism, unspecified
CPT/HCPCS: 36415; 80053; 80061; 83036; 84443

== ENCOUNTER 2022-04-11 14:00 | Outpatient (RCR) | payer MEDICAID, SELFPAY ==
--- NOTE | 2021-10-17 09:47 | HP.PTEVAL ---
Patient's Visit Information TIFFANY YOST is a 61 year old F referred to Physical Therapy by JACLYN RAYA with a diagnosis of S/P L total knee. Date of Evaluation: 10/15/21 Physical Therapist: Dejon Ma DPT - Visit Plan Frequency: 2x /Week Duration: 8 weeks Plan: start with iso quad strengthening for HEP, add in CKC and OKC quad strengthening. Progress ambulation routine. Add in stairs and functional strengthening. 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 - Subjective Pt. is status post total knee arthroplasty DOS; 12/27/20. But had previously had a femur fracture with immobilization in june 2019. Then most recently had a patellar fracture in June of 2021. She was then put in an immobilizer for ~ 2 months, increasing ROM every 2 weeks unto removed ~2 weeks ago. She reports overall minimal pain, but does feel like her L leg does give out on her at times with walking. Currently, using mostly WC at home, until today. Plan is to progress back to fully walking. She was initially immobilized to 0deg then opened 20deg every two weeks or so. She is now trying to walk a bit more with FWW as she was not walking much before today. She is sleeping well. She reports having a hard time getting up from chairs, especially lower ones, difficulty with walking and stairs. She reports having minimal LLE strength especially her quad muscle. She was DC by physician at this point in time and is to work on strengthening her L LE progressing back to full walking. She reports overall minimal pain involved with her L knee. Her biggest concern is with her leg given out and her L quad weakness, most like associated with each other. - Pain L knee Pain Intensity (Out of 10): 1 Pain Intensity Range: 0, 3 - Objective POSTURE: Pt. is able to stand with FWW. She has increased wt. shift on to R LE. Pt. is unable to stand without use of AD. PALPATION: Pt. has no pain with palpation of LLE. NEURO: Pt. has normal sensation to light and sharp touch throughout BLEs. Decreased DTR of L patellar 1+. ROM: Pt. has good ROM of L knee. 0-0-120deg. She did have a clunk sound with increased flexion. She reports that his happens with walking as well. MMT: RLE 4+/5 throughout. LLE: ankle 5/5 throughout. L knee: extension 0# (2/5); flexion 55#, hip: flexion 5#, abd 5#, ext 5#. Core strength- poor. Pt. has marked L quad weakness measured today. GAIT: Pt. ambulates with FWW with heavy use of this with her UEs. Pt. has decreased step length bilaterally with flexed overall posture. Pt. has increased wt. shift onto AD during L stance phase as well. - Balance/Special Test Scores Lower Extremity Functional Score: 26 TUG Test Time Seconds: 27.9 30 Second Chair Rise Test Seconds: 4 6 Minute Walk Test: 108 feet in 3:12sec. Pt. fatigue with walking and needed to sit to recover. - Goals Goal 1:: LTG: Pt. to be I with HEP for BLE strengtheing. Goal Time Frame: 4-6 Weeks Goal 2:: STG: pt. to complete sit to stand without use of UEs. Goal Time Frame: 2-4 Weeks Goal 3:: LTG: Pt. to complete sit to stand rep test with score of 15 reps without use of UEs. Goal Time Frame: 6-8 Weeks Goal 4:: LTG: Pt. to complete 6 MWT with distance of at least 650 feet. Goal Time Frame: 6-8 Weeks Goal 5:: LTG: Pt. to negotiate 1 flight if stairs with reciprocal pattern with use of BHRs. Goal Time Frame: 6-8 Weeks - Rehabilitation Potential Physical Therapy Diagnosis: Pt. has signs and symptoms consistent with S/P L total knee replacement with subsequent patellar fx. She had a L TKR on December of 2020, then a subsequent L patellar fracture in June 2021. She was then immobilized and is now presenting with L quad, LLE weakness with difficulty walking and difficulty with functional mobility. She has marked generalized weakness from limited mobility as well. She would benefit from PT to address her LLE and whole body weakness with progressing to gait and stair negotation. Rehabilitation Potential: Good - Anticipated Interventions Patient/Client Instruction: Educate patient on: Condition, Plan of Care, Risk Factors, Benefits of Fitness Program For the Purpose of:: To improve self management, To prevent re-injury, To improve ability to perform tasks related to life management, To improve tolerance to ADL's Therapeutic Exercise to Include: Strength training, Power training, Endurance training, Balance training, Postural training, Flexibilty training, Gait and locomotor training, Passive ROM, Active ROM For the Purpose of:: To decrease pain, To decrease swelling/inflammation, To increase ROM, To improve nutrient delivery to tissue, To improve muscle performance and motor function, To improve ability to perform ADL's, To decrease level of supervision to perform tasks, To improve ability of physical actions for home/community/work/leisure, To improve health of tissue, To decrease soft tissue restriction, To increase flexibility/ROM, To improve endurance Thank you for the opportunity to evaluate your patient. For Medicare and Medicare HMO plans, please review the plan of care and approve it. It will need to be FAXED BACK to us at [phone] for Medicare purposes. For Medicare only, by signing this I certify the plan of care. Please let me know if there are questions or concerns regarding this plan of care. Physician Signature: Date:
--- NOTE | 2022-01-14 13:01 | HP.PTREVAL ---
JACLYN RAYA, It has been my pleasure to treat TIFFANY YOST over the last 21 visits for S/P L total knee. Please see the progress note below for an update on the physical therapy plan of care! Subjective: Pt. reports overall doing well. Pt. reports having to do stairs this coming Friday as she is going to parents house this Friday and has steps to get in. Objective/Function: 6 MWT: 405feet with FWW in 5min 32 sec. stairs: pt. is able to complete with quad cane and 1 HR with step to pattern loading RLE only. 30sec sit to stand rep test- 11 without use of UEs. gait: Pt. walks okay with FWW, but still has difficulty during L stance phase, tends to hyper extend her knee for stability. Similar pattern with quad cane, but is able to ambulate with cane up to 100'. MMT: pt. has improved strength- but continues to be limited with end range extension with quad activation, good in mid range. Plan Plan: Cont. to work on stability in SLS on LLE, gait progression, quad strengthening. Balance/Gait/Functional tests - Balance/Special Test Scores Lower Extremity Functional Score: 28 TUG Test Time Seconds: 27.9 Tug Test: 20-30sec.=variable mobility 30 Second Chair Rise Test Seconds: 4 6 Minute Walk Test: 108 feet in 3:12sec. Pt. fatigue with walking and needed to sit to recover. Goals Goal 1:: LTG: Pt. to be I with HEP for BLE strengtheing. Goal Time Frame: 4-6 Weeks Goal Progress: Progressing Goal 2:: STG: pt. to complete sit to stand without use of UEs. Goal Time Frame: 2-4 Weeks Goal Progress: Goal Met Goal 3:: LTG: Pt. to complete sit to stand rep test with score of 15 reps without use of UEs. (11 without HR) Goal Time Frame: 6-8 Weeks Goal Progress: Progressing Goal 4:: LTG: Pt. to complete 6 MWT with distance of at least 650 feet. (405' with FWW, 5:32sec) Goal Time Frame: 6-8 Weeks Goal 5:: LTG: Pt. to negotiate 1 flight if stairs with reciprocal pattern with use of BHRs. (patient completed with 1 HR and 1 quad cane with step to pattern loading RLE only) Goal Time Frame: 6-8 Weeks Goal Progress: Progressing Anticipated Interventions Patient/Client Instruction: Educate patient on: Condition, Plan of Care, Risk Factors, Benefits of Fitness Program For the Purpose of:: To improve self management, To prevent re-injury, To improve ability to perform tasks related to life management, To improve tolerance to ADL's Therapeutic Exercise to Include: Strength training, Power training, Endurance training, Balance training, Postural training, Flexibilty training, Gait and locomotor training, Passive ROM, Active ROM For the Purpose of:: To decrease pain, To decrease swelling/inflammation, To increase ROM, To improve nutrient delivery to tissue, To improve muscle performance and motor function, To improve ability to perform ADL's, To decrease level of supervision to perform tasks, To improve ability of physical actions for home/community/work/leisure, To improve health of tissue, To decrease soft tissue restriction, To increase flexibility/ROM, To improve endurance Please do not hesitate to contact me at [phone] by phone or if you have questions or concerns regarding this new plan of care! Sincerely, MEDHAT JohnsonT
--- NOTE | 2022-02-19 09:25 | HP.PTREVAL_ITS ---
JACLYN RAYA, It has been my pleasure to treat TIFFANY YOST over the last 27 visits for S/P L total knee. Please see the progress note below for an update on the physical therapy plan of care! Subjective: Pt. reports being overall doing okay. She reports still having a lot of trouble with gait and her L leg strength. Pt. has had a few episodes where her L knee has given out on her. She has not fallen, but has been able to progress from AD due to fear of falling. Objective/Function: ROM: Pt. has normal ROM of her L knee 0-0-121deg. passively. ACTIVE ROM: lacking 20deg of extension in sitting. MMT: RLE: 4+/5 throughout. LLE: ankle 5/5 throughout. knee: flexion 50#, extension 10# at mid range (but unable to effectively complete full knee extension in sitting). She lacks strength in final 20-30deg of extension of her L knee. hip: flexion 20#, abd 30#, ext 40#. sit to stand: SANIA with FWW. Transfers: SANIA with FWW. GAIT: Pt. is able to ambulate with FWW well, but has intermittent lack of control of TKE of L knee. She tends to walk in hyper extension of her L knee. She reports not trusting her L knee due to her knee buckling on her at times. Pt. is able to ambulate throughout therapy gym with FWW. She has been able to walk with out, but has larger hyper extension to complete and high guard posture. STAIRS: Pt. is able to complete with step to pattern loading RLE only. She is able to take a few steps with loading LLE, but is fearful of giving out on her. TU.1sec with FWW. 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 Plan Plan: I am asking for more visits to continue wot work on quad strength in order to increase stability in stance and avoid hyper extension to stabilize. pt. has been progressing, but slowly. Balance/Gait/Functional tests - Balance/Special Test Scores Lower Extremity Functional Score: 33 TUG Test Time Seconds: 23.1 Tug Test: <20 sec.=mostly independent 30 Second Chair Rise Test Seconds: 4 6 Minute Walk Test: 451feet with FWW Goals Goal 1:: LTG: Pt. to be I with HEP for BLE strengtheing. Goal Time Frame: 4-6 Weeks Goal Progress: Progressing Goal 2:: STG: pt. to complete sit to stand without use of UEs. Goal Time Frame: 2-4 Weeks Goal Progress: Goal Met Goal 3:: LTG: Pt. to complete sit to stand rep test with score of 15 reps without use of UEs. (12 without HR) Goal Time Frame: 6-8 Weeks Goal Progress: Progressing Goal 4:: LTG: Pt. to complete 6 MWT with distance of at least 650 feet. (405' with FWW, 5:32sec) Goal Time Frame: 6-8 Weeks Goal Progress: Progressing Goal 5:: LTG: Pt. to negotiate 1 flight if stairs with reciprocal pattern with use of BHRs. (patient completed with 1 HR and 1 quad cane with step to pattern loading RLE only) Goal Time Frame: 6-8 Weeks Goal Progress: Progressing Goal 6:: LTG: Pt. to have symmetrical L quad strength to R side. Anticipated Interventions Patient/Client Instruction: Educate patient on: Condition, Plan of Care, Risk Factors, Benefits of Fitness Program For the Purpose of:: To improve self management, To prevent re-injury, To improve ability to perform tasks related to life management, To improve tolerance to ADL's Therapeutic Exercise to Include: Strength training, Power training, Endurance training, Balance training, Postural training, Flexibilty training, Gait and locomotor training, Passive ROM, Active ROM For the Purpose of:: To decrease pain, To decrease swelling/inflammation, To increase ROM, To improve nutrient delivery to tissue, To improve muscle performance and motor function, To improve ability to perform ADL's, To decrease level of supervision to perform tasks, To improve ability of physical actions for home/community/work/leisure, To improve health of tissue, To decrease soft tissue restriction, To increase flexibility/ROM, To improve endurance Please do not hesitate to contact me at [phone] by phone or if you have questions or concerns regarding this new plan of care! Sincerely, Dejon Ma DPT
== END 2022-04-11 19:00 | disposition home or self-care (01) ==
LOC: PT 14:00
PROVIDERS: PCP Family Medicine
DX: Z98.890 Other specified postprocedural states; Z96.652 Presence of left artificial knee joint
CPT/HCPCS: 97110; 97161; 97164

== ENCOUNTER 2022-07-08 13:00 | Outpatient (RCR) | payer MEDICAID, SELFPAY ==
--- NOTE | 2022-06-14 08:37 | HP.OTEVAL_ITS ---
Patient's Visit Information TIFFANY YOST is a 61 year old F, referred to Occupational Therapy by JACLYN RAYA, with a diagnosis of lymphedema. Date of Evaluation: 06/13/22 Occupational Therapist: Gina Clay, KATERINAR/[place], CHT - Subjective This 61 year old female was seen with dx of left LE lymphedema- edema- pt states she has had multiple left LE knee sx. and was confined to a wheel chair for about the last two year. pt because of her knee instability she needs to wear a knee brace and has been using a velco closure compression garment for he lower leg. pt states she continues to have swelling in leg and above her knee. pt would like to know what she can do to decrease swelling. - ADLs Comments: pt lives alone. states she can mtg. her self care but struggles to reach her feet. - Lymphedema (Circumferential Measure) Mid-foot: right 26.5cm left 26.5cm Ankle: right 33cm left 36cm Lower calf: right 36cm left 44 Largest calf: right 54cm left 56cm Below knee: right 55cm left 49cm Above knee: right 64.5cm left 73cm - Lower Limb Functional Index Lower Extremity Functional Score: 19 - Goals Demonstrate a 20% reduction in edema by d/c: Yes Demonstrate adequate knowledge of self-bangaging by 1st week: Yes Demonstrate adequate knowledge of self-massage by 2nd week: Yes Demonstrate adequate knowledge skin care/prec by 2nd week: Yes Demonstrate adequate knowledge therapeutic exercises by d/c: Yes Select approp compression garment w/donning/care/wear by d/c: Yes Voice need to replace compression garment every 4-6mo by dc: Yes - Rehabilitation General Assessment: pt demo with stage III lymphedema and demo need for skilled OT services 3-4 visits to ensure understanding of HEP. Today therapist ed. pt on skin care, compression garment choices, and possible need to wrap thigh high at night to decrease fibrotic tissue. pts right LE also demo with fluid accumulation. Therapist ed. pt on lymph stimulation ex., self manual lymph massage and what compression garments she can look at to see what fits in her budget. Therapist also ed, pt to take measurements of leg in morning as she indicates her leg is down some. Therapist ed. she could use compression sock on her right LE 20-30 mmHg, and then look at thigh high compression garment for her left LE. Therapist ed. pt she would benefit from a home vaso pneumatic device to assist in self mtg. pt was receptive. Rehabilitation Potential: Questionable - Anticipated Interventions Education re assistive Equipment, Education re Diagnosis, Education re Life-long lymphedema Management, Education re Skin Care and Precautions, Education re Self Massage Techniques, Education re Correct Donning Tech,Care&Wearing Sched Comp Garments, Home Program - Visit Plan Frequency: 1-2x /Week Duration: 3 Weeks General Plan: pt to purchase compression devices. pt to cont with HEP. will see what we can do to get home compression pump approved by ins. TEXT: Thank you for the opportunity to evaluate your patient. For Medicare and Medicare HMO plans, please review the plan of care and approve it. It will need to be FAXED BACK to us at [phone] for Medicare purposes. Please let me know if there are questions or concerns regarding this plan of care. Physician Signature: Date:
--- NOTE | 2022-07-02 09:37 | HP.PTREVAL_ITS ---
JACLYN RAYA, It has been my pleasure to treat TIFFANY YOST over the last 42 visits for L TKA. Please see the progress note below for an update on the physical therapy plan of care! Subjective: Pt. reports doing much better since she started use of brace. Pt. reports being 50% better overall. She reports no L knee pain and no occurrences of her L knee buckling on her. Objective/Function: TU.7sec with cane and CGA. GAIT: Pt. was able to ambulate 200' in 2: 54 minutes. She is still lacking terminal knee extensor str ength. stairs; She can complete with CGA with increased difficulty with LLE first, I with step to loading RLE only Plan Plan: I would like to continue to work on gait progression, both on endurance to walk further distances, but also to increase her speed thorughout her house and safety with least restrictive device. She has had her brace ~3 weeks and I would like to continue to work on her mobility with this. She is still very hesitant to trust her LLE. Goals Goal 1:: LTG: Pt. to be I with HEP. Goal Time Frame: 4-6 Weeks Goal Progress: Progressing Goal 2:: Pt. able to ambulate with FWW without L knee givingout on her. Goal Time Frame: 4-6 Weeks Goal Progress: Goal Met Goal 3:: LTG: Pt. to negotiate 1 flight of stairs safely with use of BHR. Goal Time Frame: 4-6 Weeks Goal Progress: Progressing Goal 4:: LTG: Pt. to walk unlimited distances with FWW without LOB or knee giving out on her. Goal Time Frame: 4-6 Weeks Goal Progress: Goal Met Goal 5:: LTG: Pt. to ambulate with quad cane for 400' with SBA with improved step length. Goal Time Frame: 4-6 Weeks Goal 6:: LTG: Pt. to complete 6 MWT with use of quad cane and SBA. Goal Time Frame: 4-6 Weeks Anticipated Interventions Patient/Client Instruction: Educate patient on: Condition, Plan of Care, Risk Factors, Benefits of Fitness Program For the Purpose of:: To improve decision making, To facilitate caregiver knowledge, To improve self management, To prevent re-injury, To improve ability to perform tasks related to life management Therapeutic Exercise to Include: Strength training, Power training, Body mechanics, Postural training, Gait and locomotor training Please do not hesitate to contact me at [phone] by phone or if you have questions or concerns regarding this new plan of care! Sincerely, MEDHAT JohnsonT
== END 2022-07-08 19:00 | disposition home or self-care (01) ==
LOC: OT 13:00
PROVIDERS: PCP Family Medicine
DX: Z98.890 Other specified postprocedural states (principal)
CPT/HCPCS: 97110; 97164; 97166; 97530

== ENCOUNTER → 2022-07-17 | Outpatient (CLI) | payer MEDICAID, SELFPAY ==
[2022-07-17 15:47] LABS: AST(SGOT) 72 U/L (15-37); Alanine Aminotransfer ALT/SGPT 66 U/L (13-56); Albumin, Serum 2.8 g/dL (3.2-5.0); Alkaline Phosphatase 133 U/L (45-117); Bilirubin, Direct 0.34 mg/dL (0.00-0.30); Globulin 3.7 g/dL (2.2-4.2); Protein, Total 6.5 g/dL (6.4-8.2); T4 Free Direct 1.46 ng/dL (0.76-1.46); Thyroid Stim Hormone (TSH) 0.27 uIU/mL (0.358-3.74)
== END | disposition home or self-care (01) ==
LOC: BIMLAB 13:41
PROVIDERS: PCP Family Medicine; Referring Provider Family Medicine; Visit Provider Family Medicine
DX: E03.9 Hypothyroidism, unspecified (principal); Z87.898 Personal history of other specified conditions
CPT/HCPCS: 36415; 80076; 84439; 84443

== ENCOUNTER 2022-08-01 10:54 | Outpatient (RCR) | payer MEDICAID, SELFPAY | END 2022-08-01 19:00 | disposition home or self-care (01) | LOC: OT 10:54 | PROVIDERS: PCP Family Medicine | DX: I89.0 Lymphedema, not elsewhere classified (principal) | CPT/HCPCS: 97530 ==

== ENCOUNTER 2023-01-30 14:00 | Outpatient (RCR) | payer MEDICAID, SELFPAY ==
--- NOTE | 2022-09-27 15:54 | HP.PTREVAL_ITS ---
Re-Evaluation Intro: JACLYN RAYA, It has been my pleasure to treat TIFFANY YOST over the last 16 visits for L TKA with subsequent patellar fx. Please see the progress note below for an update on the physical therapy plan of care! Subjective Subjective: Pt. reports overall doing well. Pt. reports no major issues today. Pt. arrives with FWW, but has quad cane with her. Objective Objective/Function: 6 MWT: Pt. was able to ambulate for 6 minutes today. Pt. ambulated 431 feet with quad cane. Pt. completed again with FWW and walked 575feet. TU.1sec with quad cane STAIRS: Pt. is able to complete with step to pattern with use of BHR for both ascending and descending. Pt. has good strength throughout BLEs, except L knee extension which is limited secondary to her fracture and mal healing causing loss of extensor mechanism. Plan Plan Plan: I would like to continue to see Tiffany with focus on continued progress with quad cane. She is I with FWW, but not with cane at this point in time. She is using a brace well with good tolerance. No occurrences of her knee giving out on her during this stint of PT. She is still lacking the confidence and control with gait with quad cane. Balance/Gait/Functional tests Balance/Special Test Scores Lower Extremity Functional Score: 37 Goals Goals Goal 1:: LTG: Pt. to be I with balance and LE strengthening exercises. Goal Time Frame: 4-6 Weeks Goal Progress: Goal Met Goal 2:: LTG: pt. to be able to ambulate 350' with quad cane without LOB SANIA. Goal Time Frame: 4-6 Weeks Goal Progress: Progressing Goal 3:: LTG: Pt. to negotiate curb step allowing for safe ambulation in community. Goal Time Frame: 4-6 Weeks Goal Progress: Progressing Goal 4:: LTG: Pt. to negotiate 1 flight of steps allowing for safe entry in parents home. Goal Time Frame: 4-6 Weeks Goal Progress: Goal Met Anticipated Interventions Anticipated Interventions Patient/Client Instruction: Educate patient on: Condition, Plan of Care, Risk Factors and Benefits of Fitness Program For the Purpose of:: To foster healthy habits, To improve decision making, To facilitate caregiver knowledge, To improve self management, To prevent re- injury, To improve ability to perform tasks related to life management and To improve tolerance to ADL's Therapeutic Exercise to Include: Strength training, Balance training, Coordination, Agility training, Flexibilty training and Gait and locomotor training For the Purpose of:: To increase ROM, To improve nutrient delivery to tissue, To increase oxygenation perfusion, To improve health of tissue, To decrease soft tissue restriction, To increase flexibility/ROM, To improve endurance, To improve balance and To improve safety with gait Re-Evaluation Ending Re-evaluation ending: Please do not hesitate to contact me at [phone] by phone or if you have questions or concerns regarding this new plan of care! Sincerely, MEDHAT JohnsonT
== END 2023-01-30 19:00 | disposition home or self-care (01) ==
LOC: PT 14:00
PROVIDERS: PCP Family Medicine
DX: I89.0 Lymphedema, not elsewhere classified (principal); Z98.890 Other specified postprocedural states
CPT/HCPCS: 97110; 97164

== ENCOUNTER → 2023-03-06 | Outpatient (CLI) | payer MEDICAID, SELFPAY ==
--- NOTE | 2023-03-06 14:03 | BI_ITS ---
MAMMOGRAPHY - BILATERAL SCREENING REASON FOR EXAM: Female, 62 years old. Routine annual screening examination. PERTINENT HISTORY: Aunt with breast cancer. Remote right excisional breast biopsy. TECHNIQUE: Digital bilateral breast mary (3D mammographic acquisition) in the CC and MLO projections. 2-D mediolateral oblique (MLO) and craniocaudad (CC) views of both breasts were obtained. CAD: Full Field Digital Mammography with Computer Added Detection was performed. COMPARISON: Comparison is made with prior study dated March 05, 2022 and March 02, 2021. FINDINGS: Breast Composition: There are scattered areas of fibroglandular density. There are no dominant masses or suspicious calcifications. Stable dense linear calcification is seen in the slightly lateral retroareolar region of the right breast. Stable fat-containing right axillary lymph node. No other significant abnormalities are identified. There has been no significant change since the prior study. BI/SCRN MAMM (CAD)W/MARY BILAT IMPRESSION: Stable bilateral screening mammogram. Yearly follow-up mammogram recommended. (A) ASSESSMENT CATEGORY: BIRADS Category 2: Benign. A letter regarding these results will be sent to the patient by the facility within 30 days. Approximately 10% of breast cancers are not detected by mammography. A normal mammogram should not delay biopsy of a clinically suspicious abnormality. [id number] Electronically Signed: Edilberto Wright MD at 14:55 EST ,
--- OUTSIDE RECORDS SUMMARY | 2023-03-06 14:31 | XMS RPT_ITS | CCD ---
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 diphenhydrAMINE 25 mg (BENADRYL) 25 mg ORAL q 4 H PRN - potassium chloride ER 20-40 mEq tab(s) (K-DUR, KLOR-CON) 20-40 mEq ORAL PRN Or - potassium chloride iv piggyback 20 mEq/100 mL 20 mEq INTRAVENOUS PRN Hemoglobin 7.6 07/11/2020 Hematocrit 24.2 07/11/2020 Platelet Count 232 07/11/2020 SIGNATURE: Enma Alcantar PA-C [phone] DA (more content not included)...[facility]05-18-2021 NoteHNO ID: [id number] Author: Jennifer Castle RN Service: Care Management Author Type: Registered Nurse Type: Care Mgt Progress Note Filed: 07/11/2020 3:39 AM Note Text: CARE MANAGEMENT PROGRESS NOTE SERVICE DATE: 07/11/2020 SERVICE TIME: 3:39 AM LOS: 0 days Patient screened and discharge needs evaluated. Staff Attorney to follow for discharge planning. SIGNATURE: Jennifer Castle RN PATIENT NAME: Marva Fu DATE: July 11, 2020 TIME: 3:39 AM PAGER/CONTACT #: [phone] NoteHNO ID: [id number] Author: Amelie Henderson APRN.BUTADIENE CONVERTER HELPER Service: Anesthesiology Author Type: Nurse Instructor Adjunct Surgical Technician Type: Anesthesia Procedure Notes Filed: 07/10/2020 2:32 PM Note Text: ANESTHESIOLOGY PROCEDURE NOTE A-Line General Information Patient identity confirmed: arm band and patient Indication: continuous blood pressure monitoring Staffing BUTADIENE CONVERTER HELPER: Amelie Henderson APRN.BUTADIENE CONVERTER HELPER Performed by: CHARLETTE Preparation Site Prep: Chloraprep Procedure Details Catheter Size: 20 G Catheter Length: 5.25 in Guidewire Used: Yes Guidewire Removed Intact: YesLaterality: left Site: radial artery Ultrasound Guided: NoLine Secured: Tegaderm Events Events: patient tolerated procedure well with no complications SIGNATURE: Amelie Henderson APRN.CRNA PATIENT NAME: Marva Fu DATE: July 10, 2020 TIME: 2:31 PM CSN: [id number] NoteHNO ID: [id number] Author: Amelie Henderson APRN.BUTADIENE CONVERTER HELPER Service: Anesthesiology Author Type: Nurse Instructor Adjunct Surgical Technician Type: Anesthesia Procedure Notes Filed: 07/10/2020 9:23 AM Note Text: ANESTHESIOLOGY PROCEDURE NOTE PIV General Information Patient Location: OR Staffing BUTADIENE CONVERTER HELPER: Amelie Henderson APRN.BUTADIENE CONVERTER HELPER Performed by: CHARLETTE Preparation Sterility Preparation: hand hygiene performed prior to procedure, surgical cap used, mask used, skin prep agent completely dried prior to procedure Sterility Technique Not Completely Performed Due to Extreme Emergency: No Site Prep: alcohol Procedure Details Indication: need for IV access Needle Size/Type: 18 gauge angiocath Orientation: Right Location: Hand Imaging Guidance Used: No SIGNATURE: Amelie Henderson APRN.CRNA PATIENT NAME: Marva Fu DATE: July 10, 2020 TIME: 9:22 AM CSN: [id number] [place], [place] [id number] NoteHNO ID: [id number] Author: Amelie Henderson APRN.BUTADIENE CONVERTER HELPER Service: Anesthesiology Author Type: Nurse Instructor Adjunct Surgical Technician Type: Anesthesia Procedure Notes Filed: 07/10/2020 9:22 AM Note Text: ANESTHESIOLOGY PROCEDURE NOTE Airway General Information Procedure Start Time/Medication Administration: 07/10/2020 7:47 AM Patient location during procedure: OR Timeout Performed Pre-procedure: timeout performed Consent Obtained: Yes Patient identity confirmed: arm band Staffing BUTADIENE CONVERTER HELPER: Amelie Henderson APRN.BUTADIENE CONVERTER HELPER Indications and Patient Condition Preoxygenated: yes Patient position: sniffing Manual In-Line Stabilization: No Difficult Mask: No Indications for airway management: anesthesia anesthesia circuit Method: asleep Cricoid Pressure: No Final Airway Details Final airway type: endotracheal airway Final Endotracheal Airway: ETT Cuffed: yes Successful intubation technique: video laryngoscopy Devices used: Glidescope Blade size: #4 ETT size (mm): 7.0 Measured from: teeth Measurement (cm): 22 Placement verified by: chest auscultation Cormack-Lehane Classification: grade I - full view of glottis Number of attempts at approach: 1 Failed airway: no Unrecognized esophageal intubation: no Airway not difficult SIGNATURE: Amelie Henderson APRN.BUTADIENE CONVERTER HELPER PATIENT NAME: Marva Fu DATE: July 10, 2020 TIME: 9:20 AM CSN: [id number] NoteHNO ID: [id number] Author: Yuriy Valdovinos MD Service: Anesthesiology Author Type: Anesthesiologist Type: Anesthesia Procedure Notes Filed: 07/10/2020 6:55 AM Note Text: ANESTHESIOLOGY PROCEDURE NOTE Peripheral Nerve Block General Information Procedure Start Time/Medication Administration: 07/10/2020 6:26 AM Procedure End time: 07/10/2020 6:32 AM Patient location during procedure: pre-op Timeout Performed Pre-procedure: timeout performed Consent Obtained: Yes Patient identity confirmed: arm band, 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 Reason for block: post-op pain management/at surgeon's request and pain service Staffing Anesthesiologist: Yuriy Valdovinos MD Performed by: anesthesiologist Preparation Sterility Preparation: hand hygiene performed prior to procedure, surgical cap used, mask used, sterile drape used during line insertion, skin prep agent completely dried prior to procedure Site Prep: Chloraprep Pre-Procedure Neuro Exam Sensory: intact Motor: intact Procedure Details Monitoring: Pulse OX, EKG and NIBP Block Type Lower Extremity: femoral Laterality: left Injection Technique: catheter Ultrasound Guided: Yes Image in Chart: yes Local Infiltration: Yes Needle Needle Type: echogenic Needle Gauge: 17 G Needle Localization: ultrasound Needle Insertion Depth: 8 cm Catheter Size: 19 G Catheter at Skin Depth: 6.5 cm Assessment Injection assessment: negative aspiration, no paresthesia on injection, incremental injection and local visualized surrounding nerve on ultrasound Paresthesia: none Post-Procedure Neuro Exam Expected Regional Anesthesia: Yes Medications Administered Bupivacaine (PF) 0.5 % (5 mg/mL) injection, 25 mL dexamethasone sodium phosphate injection (DECADRON), 8 mg Comments Patient is communicating. No pain on injection. Procedure is well tolerated. Extended block is expected up to 24 hours post-block. Patient can be discharged to floor/home with the block intact. Standard ASA monitors were used. Vital signs were stable throughout; please see nursing record for vital signs during procedure. SIGNATURE: Yuriy Valdovinos MD PATIENT NAME: Marva Fu DATE: July 10, 2020 TIME: 6:54 AM CSN: [id number] NoteHNO ID: [id number] Author: Stevan Vidal RN Service: Nursing Author Type: Registered Nurse Type: Nursing Progress Note Filed: 07/10/2020 6:35 AM Note Text: [facility] Diagnosis Status post knee surgery- Primary Other postprocedural status [facility] Diagnosis Status post knee surgery Other postprocedural status [facility] Diagnosis Anemia, unspecified type- Primary Closed displaced comminuted fracture of left patella, initial encounter Extensor mechanism malalignment of knee Closed displaced comminuted fracture of left patella, initial encounter Extensor mechanism malalignment of knee documented in this [facility]* Diagnosis 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 Closed displaced transverse fracture of left patella, initial encounter Closed displaced comminuted fracture of left patella, initial encounter Extensor mechanism malalignment of knee [facility] Closed displaced transverse fracture of left patella with routine healing, subsequent encounter- Primary History of revision of total replacement of left knee joint [facility] Diagnosis Status post knee surgery- Primary Other postprocedural status documented in this [facility]* Diagnosis Status post knee surgery- Primary Other postprocedural status History of revision of total replacement of left knee joint [facility] Diagnosis Lymphedema- Primary Other lymphedema documented in this encounter [facility] note* Diagnosis Lymphedema- Primary Other lymphedema Lipoedema Edema BMI 45.0-49.9, adult ([facility]) Body Mass Index 45.0-49.9, adult Left leg pain Pain in limb documented in this encounter [facility] note* Diagnosis Closed displaced transverse fracture of left patella with routine healing, subsequent encounter documented in this encounter [facility] note* Diagnosis Failed orthopedic implant, initial encounter ([facility]) 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, unspecified fracture morphology, unspecified portion of femur, subsequent encounter documented in this encounter [facility] for referral (narrative)* Diagnostic Procedure Only (Routine) - Closed Specialty Diagnoses / Procedures Referred By Contac t Referred To Contact XR IMAGING Diagnoses Status post knee surgery Procedures XR FEMUR GENERAL 2V AP/LAT LEFT RADIOLOGIC EXAMINATION FEMUR MINIMUM 2 VIEWS Jaclyn Cisse DO [address] [place] [address] Xr Imaging Referral ID Status Reason Start Date Expiration Date V isits Requested Visits Authorized [id number] Closed Auto-Generate d Referral 07/20/2021 08/19/2022 1 1 * Diagnostic Procedure Only (Routine) - Closed Specialty Diagnoses / Procedures Referred By Contac t Referred To Contact XR IMAGING Diagnoses Status post knee surgery Procedures XR KNEE POST OP 3V AP/LAT/MERCHANT LEFT RADIOLOGIC EXAMINATION KNEE 3 VIEWS Jaclyn Cisse DO [address] [place] [address] Xr Imaging Referral ID Status Reason Start Date Expiration Date V isits Requested Visits Authorized [id number] Closed Auto-Generate d Referral 07/20/2021 08/19/2022 1 1 [facility] for referral (narrative)* Diagnostic Procedure Only (Routine) - Closed Specialty Diagnoses / Procedures Referred By Contac t Referred To Contact XR IMAGING Diagnoses Status post knee surgery Procedures XR FEMUR GENERAL 2V AP/LAT LEFT RADIOLOGIC EXAMINATION FEMUR MINIMUM 2 VIEWS Jaclyn Cisse, DO [address] [place] [address] Xr Imaging Referral ID Status Reason Start Date Expiration Date V isits Requested Visits Authorized [id number] Closed Auto-Generate d Referral 07/20/2021 08/19/2022 1 1 * Diagnostic Procedure Only (Routine) - Closed Specialty Diagnoses / Procedures Referred By Contac t Referred To Contact XR IMAGING Diagnoses Status post knee surgery Procedures XR KNEE POST OP 3V AP/LAT/MERCHANT LEFT RADIOLOGIC EXAMINATION KNEE 3 VIEWS Jaclyn Cisse DO [address] [place] [address] Xr Imaging Referral ID Status Reason Start Date Expiration Date V isits Requested Visits Authorized [id number] Closed Auto-Generate d Referral 07/20/2021 08/19/2022 1 1 [facility] for referral (narrative)* Diagnostic Procedure Only (Routine) - Pending Review Specialty Diagnoses / Procedures Referred By Contac t Referred To Contact XR IMAGING Diagnoses Closed displaced comminuted fracture of left patella, initial encounter Procedures XR KNEE LIMITED 2V AP/LAT LEFT RADIOLOGIC EXAMINATION KNEE 1/2 VIEWS Jaclyn Cisse, DO [address] [place] [address] Xr Imaging Referral ID Status Reason Start Date Expiration Date Visits Requested Visits Authorized [id number] Pending Review Auto-Generat ed Referral 07/25/2021 08/24/2022 1 1 * Diagnostic Procedure Only (Routine) - Authorized Specialty Diagnoses / Procedures Referred By Contac t Referred To Contact XR IMAGING Diagnoses Closed displaced comminuted fracture of left patella, initial encounter Procedures XR KNEE LIMITED 2V AP/LAT LEFT RADIOLOGIC EXAMINATION KNEE 1/2 VIEWS Jaclyn Cisse, DO [address] [place] [address] Xr Imaging Referral ID Status Reason Start Date Expiration Date Visits Requested Visits Authorized [id number] Authorized Auto-Generat ed Referral 07/25/2021 08/24/2022 1 1 * Physical Therapy (Routine) - Pending Review Specialty Diagnoses / Procedures Referred By Contac t Referred To Contact [facility] Diagnoses Closed displaced comminuted fracture of left patella, initial encounter Extensor mechanism malalignment of knee Procedures CONSULT TO PHYSICAL THERAPY PHYSICAL THERAPY EVALUATION HIGH COMPLEX 45 MINS Jaclyn Cisse DO [address] [place] [address] [facility] [address] [address] Referral ID Status Reason Start Date Expiration Date Visits Requested Visits Authorized [id number] Pending Review Auto-Generat ed Referral 07/25/2021 07/25/2022 1 1 * Consult, Test, Treat (Routine) - Authorized Specialty Diagnoses / Procedures Referred By Mya t Referred To Contact Anesthesiology Diagnoses Closed displaced comminuted fracture of left patella, initial encounter Extensor mechanism malalignment of knee Procedures CONSULT TO ANESTHESIOLOGY OFFICE/OUTPATIENT [facility] 60-74 MINUTES Jaclyn Cisse DO [address] [place] [address] Referral ID Status Reason Start Date Expiration Date Visits Requested Visits Authorized [id number] Authorized PCP Requested Referral 07/25/2021 07/25/2022 1 1 * Outpatient Procedure (Routine) - Pending Review Specialty Diagnoses / Procedures Referred By Ziaac t Referred To [facility] Diagnoses Closed displaced comminuted fracture of left patella, initial encounter Extensor mechanism malalignment of knee Procedures ECG COMPLETE ECG ROUTINE ECG W/LEAST 12 LDS W/I&R Jaclyn Cisse DO [address] [place] [address] [facility] [address] [place] [address] Referral ID Status Reason Start Date Expiration Date Visits Requested Visits Authorized [id number] Pending Review Auto-Generat ed Referral 07/25/2021 07/25/2022 1 1 [facility] for referral (narrative)* Diagnostic Procedure Only (Routine) - Authorized Specialty Diagnoses / Procedures Referred By Contac t Referred To Contact XR IMAGING Diagnoses Closed displaced transverse fracture of left patella with routine healing, subsequent encounter History of revision of total replacement of left knee joint Procedures XR KNEE GENERAL 4V AP BOTH/PA BOTH/LAT/MERC LEFT RADIOLOGIC EXAM KNEE COMPLETE 4/MORE VIEWS Nile Brandon PA-C [address] [facility] [address] [place] [address] Xr Imaging Referral ID Status Reason Start Date Expiration Date Visits Requested Visits Authorized [id number] Authorized Auto-Generat ed Referral 08/09/2021 09/08/2022 1 1 [facility] for referral (narrative)* Diagnostic Procedure Only (Routine) - Closed Specialty Diagnoses / Procedures Referred By Contac t Referred To Contact XR IMAGING Diagnoses Closed displaced transverse fracture of left patella with routine healing, subsequent encounter Procedures XR KNEE LIMITED 2V AP/LAT LEFT RADIOLOGIC EXAMINATION KNEE 1/2 VIEWS Jaclyn Cisse DO [address] [place] [address] [place] [id number] Referral ID Status Reason Start Date Expiration Date V isits Requested Visits Authorized [id number] Closed Auto-Generate d Referral 10/03/2021 11/02/2022 1 1 [facility] for referral (narrative)* Diagnostic Procedure Only (Routine) - Closed Specialty Diagnoses / Procedures Referred By Contac t Referred To Contact XR IMAGING Diagnoses Failed orthopedic implant, initial encounter ([facility]) Procedures XR KNEE LIMITED 2V AP/LAT RIGHT X-RAY KNEE 2 VW Nile Brandon PA-C [address] [place] [address] [place] [address] Referral ID Status Reason Start Date Expiration Date V isits Requested Visits Authorized [id number] Closed Auto-Generate d Referral 01/25/2021 02/24/2022 1 1 * Diagnostic Procedure Only (Routine) - Closed Specialty Diagnoses / Procedures Referred By Contac t Referred To Contact XR IMAGING Diagnoses Failed orthopedic implant, initial encounter ([facility]) 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, unspecified fracture morphology, unspecified portion of femur, subsequent encounter Procedures XR KNEE POST OP 3V AP/LAT/MERCHANT LT X-RAY KNEE 3+ VW Jaclyn Cisse DO [address] [place] [address] Xr [facility] Referral ID Status Reason Start Date Expiration Date V isits Requested Visits Authorized [id number] Closed Auto-Generate d Referral 12/01/2020 12/31/2021 1 1 [facility] for visit Narrative* Diagnostic Procedure Only (Routine) - Closed Specialty Diagnoses / Procedures Referred By Contac t Referred To Contact XR IMAGING Diagnoses Status post knee surgery Procedures XR FEMUR GENERAL 2V AP/LAT LEFT RADIOLOGIC EXAMINATION FEMUR MINIMUM 2 VIEWS Jaclyn Cisse, DO [address] [place] [address] Xr Imaging Referral ID Status Reason Start Date Expiration Date V isits Requested Visits Authorized [id number] Closed Auto-Generate d Referral 07/20/2021 08/19/2022 1 1 [facility] Summary Purpose Family History No Family History Records FoundNo Family History Records FoundNo Family History Records FoundNo Family History Records FoundNo Family History Records Found Advance Directives No Advanced Directives Records FoundDocuments on File Type Date Recorded 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 [employer]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[employer] Advance Directive(s) 12/07/2020 3:24 PM Advance Directive(s) 09/11/2020 4:09 PM Advance Directive(s) 06/30/2020 4:48 PM Documents on File Type Date Recorded 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 [employer] anation Advance Directive(s) 12/07/2020 3:24 PM Advance Directive(s) 09/11/2020 4:09 PM Advance Directive(s) 06/30/2020 4:48 PM Documents on File Type Date Recorded 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 [employer] anation Advance Directive(s) 07/25/2021 9:32 AM Advance Directive(s) 12/07/2020 3:24 PM Advance Directive(s) 09/11/2020 4:09 PM Advance Directive(s) 06/30/2020 4:48 PM Documents on File Type Date Recorded 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 [employer] anation Advance Directive(s) 07/25/2021 9:32 AM Advance Directive(s) 12/07/2020 3:24 PM Advance Directive(s) 09/11/2020 4:09 PM Advance Directive(s) 06/30/2020 4:48 PM Reason for Referral Specialty Diagnoses / Procedures Referred By Mya t Referred To Contact [facility] Diagnoses Status post knee surgery Procedures CONSULT TO PHYSICAL THERAPY PHYSICAL THERAPY EVALUATION HIGH COMPLEX 45 MINS Jaclyn Cisse, DO [address] [place] [address] [facility] [address] [place] [id number] Referral ID Status Reason Start Date Expiration Date Visits Requested Visits Authorized [id number] Pending Review Auto-Generat ed Referral 10/04/2021 10/04/2022 1 1 Specialty Diagnoses / Procedures Referred By Mya brewer Referred To Contact [facility] Diagnoses Lymphedema Procedures PT REHAB FOLLOW UP ORDER THERAPEUTIC EXERCISES RE, EA 15 MIN. Lemon, Prabhakar, [facility] [address] [address] Referral ID Status Reason Start Date Expiration Date Visits Requested Visits Authorized [id number] Pending Review PCP Requested Referral Auto-Generate d Referral 07/05/2022 10/03/2022 1 1 Additional Source Comments INFORMATION SOURCE (unrecogn ized section and content) DATE CREATED AUTHOR AUTHOR'S ORGANIZ ATION 06/06/2020 [facility] ([place]) DATE CREATED AUTHOR AUTHOR'S ORGANIZ ATION 11/24/2020 [facility] DATE CREATED AUTHOR AUTHOR'S ORGANIZ ATION 04/27/2022 [facility] DATE CREATED AUTHOR AUTHOR'S ORGANIZ ATION 02/21/2023 [facility] Source Comments (unrecognize d section and content) In the event this informatio n is protected by the Federal Confidentiality of Alcohol and Drug Abuse Patient Records regulations: The Federal rules restrict any use of the information to criminally investigate or prosecute any alcohol or drug abuse patient.[facility] the event this information is protected by the Federal Confidentiality of Alcohol and Drug Abuse Patient Records regulations: The Federal rules restrict any use of the information to criminally investigate or prosecute any alcohol or drug abuse patient.[facility] the event this information is protected by the Federal Confidentiality of Alcohol and Drug Abuse Patient Records regulations: The Federal rules restrict any use of the information to criminally investigate or prosecute any alcohol or drug abuse patient.[facility] the event this information is protected by the Federal Confidentiality of Alcohol and Drug Abuse Patient Records regulations: The Federal rules restrict any use of the information to criminally investigate or prosecute any alcohol or drug abuse patient.[facility] the event this information is protected by the Federal Confidentiality of Alcohol and Drug Abuse Patient Records regulations: The Federal rules restrict any use of the information to criminally investigate or prosecute any alcohol or drug abuse patient.[facility] Medical CenterIn the event this information is protected by the Federal Confidentiality of Alcohol and Drug Abuse Patient Records regulations: The Federal rules restrict any use of the information to criminally investigate or prosecute any alcohol or drug abuse patient.[facility] Center[facility] the event this information is protected by the Federal Confidentiality of Alcohol and Drug Abuse Patient Records regulations: The Federal rules restrict any use of the information to criminally investigate or prosecute any alcohol or drug abuse patient.[facility] CenterIn the event this information is protected by the Federal Confidentiality of Alcohol and Drug Abuse Patient Records regulations: The Federal rules restrict any use of the information to criminally investigate or prosecute any alcohol or drug abuse patient.[facility] CenterIn the event this information is protected by the Federal Confidentiality of Alcohol and Drug Abuse Patient Records regulations: The Federal rules restrict any use of the information to criminally investigate or prosecute any alcohol or drug abuse patient.[facility] CenterIn the event this information is protected by the Federal Confidentiality of Alcohol and Drug Abuse Patient Records regulations: The Federal rules restrict any use of the information to criminally investigate or prosecute any alcohol or drug abuse patient.[facility] CenterIn the event this information is protected by the Federal Confidentiality of Alcohol and Drug Abuse Patient Records regulations: The Federal rules restrict any use of the information to criminally investigate or prosecute any alcohol or drug abuse patient.[facility] CenterIn the event this information is protected by the Federal Confidentiality of Alcohol and Drug Abuse Patient Records regulations: The Federal rules restrict any use of the information to criminally investigate or prosecute any alcohol or drug abuse patient.[facility] CenterIn the event this information is protected by the Federal Confidentiality of Alcohol and Drug Abuse Patient Records regulations: The Federal rules restrict any use of the information to criminally investigate or prosecute any alcohol or drug abuse patient.[facility] CenterIn the event this information is protected by the Federal Confidentiality of Alcohol and Drug Abuse Patient Records regulations: The Federal rules restrict any use of the information to criminally investigate or prosecute any alcohol or drug abuse patient.[facility] CenterIn the event this information is protected by the Federal Confidentiality of Alcohol and Drug Abuse Patient Records regulations: The Federal rules restrict any use of the information to criminally investigate or prosecute any alcohol or drug abuse patient.[facility] Care Teams (unrecognized sec tion and content) [place] Marshal Relationship Specialty Start Date End Date Carmine Chavarria, DO [address] [place] [address] PCP - General Family Practice 07/14/20 [place] Marshal Relationship Specialty Start Date End Date Carmine Chavarria DO [address] [place] [address] PCP - General Family Practice 07/14/20 [place] Marshal Relationship Specialty Start Date End Date Carmine Chavarria DO [address] [place] [address] PCP - General Family Practice 07/14/20 [place] Marshal Relationship Specialty Start Date End Date Carmine Chavarria DO [address] [place] [address] PCP - General Family Practice 07/14/20 [place] Marshal Relationship Specialty Start Date End Date Carmnie Chavarria DO [address] [place] [address] PCP - General Family Practice 07/14/20 [place] Marshal Relationship Specialty Start Date End Date Carmine Chavarria DO [address] [place] [address] PCP - General Family Practice 07/14/20 [place] Marshal Relationship Specialty Start Date End Date Carmine Chavarria DO [address] [place] [address] PCP - General Family Medicine 07/14/20 [place] Marshal Relationship Specialty Start Date End Date Carmine Chavarria DO [address] [place] [address] PCP - General Family Medicine 07/14/20 [place] Marshal Relationship Specialty Start Date End Date Carmine Chavarria DO [address] [place] [address] PCP - General Family Medicine 07/14/20 [place] Marshal Relationship Specialty Start Date End Date Carmine Chavarria DO [address] [place] [address] PCP - General Family Medicine 07/14/20 [place] Marshal Relationship Specialty Start Date End Date Carmine Chavarria DO [address] [place] [address] PCP - General Family Medicine 07/14/20 [place] Marshal Relationship Specialty Start Date End Date Carmine Chavarria DO [address] [place] [address] PCP - General Family Medicine 07/14/20 [place] Marshal Relationship Specialty Start Date End Date Carmine Chavarria DO [address] [place] [address] PCP - General Family Medicine 07/14/20 [place] Marshal Relationship Specialty Start Date End Date Carmine Chavarria DO [address] [place] [address] PCP - General Family Medicine 07/14/20 Reason for Visit (unrecogniz ed section and content) Reason Comments Knee Pain Reason Comments Follow Up Reason Comments Follow Up Fracture Reason Comments Post Op Reason Comments Patient Update Reason Comments PT Eval Specialty Diagnoses / Procedures Referred By Mya t Referred To Contact [facility] Diagnoses Lymphedema Procedures CONSULT TO LYMPHEDEMA THERAPY OFFICE/OUTPATIENT [facility] 60-74 MINUTES Nile Brandon PA-C [address] [place] [address] [facility] [address] [place] [address] Referral ID Status Reason Start Date Expiration Date V isits Requested Visits Authorized [id number] Closed Auto-Generate d Referral 06/24/2022 06/24/2023 1 1 Reason Comments Consult Lymphedema Reason Comments Radio Gen RMP Specialty Diagnoses / Procedures Referred By Contac t Referred To Contact XR IMAGING Diagnoses Closed displaced transverse fracture of left patella with routine healing, subsequent encounter Procedures XR KNEE LIMITED 2V AP/LAT LEFT RADIOLOGIC EXAMINATION KNEE 1/2 VIEWS Jaclyn Cisse, DO [address] [place] [address] [place] [address] Referral ID Status Reason Start Date Expiration Date V isits Requested Visits Authorized [id number] Closed Auto-Generate d Referral 10/03/2021 11/02/2022 1 1 Reason Comments Radio Gen RMP Specialty Diagnoses / Procedures Referred By Contac t Referred To Contact XR IMAGING Diagnoses Failed orthopedic implant, initial encounter ([facility]) 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 This clinical summary was aggregated from multiple sources. Caution should be exercised in using it in the provision of clinical care. This summary normalizes information from multiple sources, and as a consequence, information in this document may materially change the coding, format and clinical context of patient data. In addition, data may be omitted in some cases. CLINICAL DECISIONS SHOULD BE BASED ON THE PRIMARY CLINICAL RECORDS. [employer] provides no warranty or guarantee of the accuracy or completeness of information in this document.
== END | disposition home or self-care (01) ==
LOC: OPBI 14:03
PROVIDERS: PCP Family Medicine; Referring Provider Family Medicine; Visit Provider Family Medicine
DX: Z12.31 Encounter for screening mammogram for malignant neoplasm of breast (principal)
CPT/HCPCS: 77063; 77067

== ENCOUNTER → 2023-04-22 | Outpatient (CLI) | payer MEDICAID, SELFPAY ==
[2023-04-22 16:05] LABS: Hemoglobin A1c 5.9 % (3.8-5.6)
[2023-04-22 16:12] LABS: ALB/GLOB Ratio 0.8 RATIO (0.9-2.4); AST(SGOT) 47 U/L (15-37); Alanine Aminotransfer ALT/SGPT 51 U/L (13-56); Albumin, Serum 2.8 g/dL (3.2-5.0); Alkaline Phosphatase 132 U/L (45-117); Anion Gap 6 (5-15); BUN 9 mg/dL (7-18); BUN/Creat Ratio 10.7 RATIO (10-20); Calcium,Total 9.6 mg/dL (8.5-10.1); Chloride 101 mmol/L (98-107); Creatinine, Serum 0.84 mg/dL (0.55-1.02); EST Glomerular Filtration Rate 73 mL/min (>60); Est Glom Filt Rate - Afr Amer 88 mL/min (>60); Globulin 3.7 g/dL (2.2-4.2); Glucose 129 mg/dL (74-106); Potassium 3.9 mmol/L (3.5-5.1); Protein, Total 6.5 g/dL (6.4-8.2); Sodium Level 137 mmol/L (136-145)
== END | disposition home or self-care (01) ==
PROVIDERS: PCP Family Medicine; Visit Provider Family Medicine
DX: I10 Essential (primary) hypertension (principal); I89.0 Lymphedema, not elsewhere classified
CPT/HCPCS: 36415; 80053; 83036

== ENCOUNTER → 2023-07-02 | Outpatient (CLI) | payer MEDICAID, SELFPAY ==
[2023-07-02 17:19] LABS: T4 Free Direct 1.39 ng/dL (0.76-1.46)
== END | disposition home or self-care (01) ==
LOC: BIMLAB 15:25
PROVIDERS: PCP Family Medicine; Referring Provider Nurse Practitioner; Visit Provider Nurse Practitioner
DX: E03.9 Hypothyroidism, unspecified (principal)
CPT/HCPCS: 36415; 84439; 84443

== ENCOUNTER 2023-09-29 14:00 | Outpatient (RCR) | payer MEDICAID, SELFPAY ==
--- NOTE | 2023-03-20 14:27 | HP.PTEVAL ---
Patient's Visit Information Visit Information Visit Information: TIFFANY YOST is a 62 year old F referred to Physical Therapy by Dr. Mansoor Chavarria DO with a diagnosis of Impaired weight bearing and other abnormalities of gait and mobility. 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 Pt. has been in PT previously, but had been off for a few months to trial on her own after. Pt has new script for continuing PT to address gait and LLE strength. Pt is unemployed and lives alone, completes ADLs Ind. with use of a WC for higher level of activities especially if she has to carry any objects. Has been walking more often within her home and uses rollator. Saw vascular MD recently and does not have to go back for a year. Pt would like to be able to go into grocery store and walk around while shopping, currently uses motorized scooter or orders groceries online. Uses wheelchair for heavy act around her home. Pt. does reports some limitation due to R knee pain, and has marked loss of L knee extension due to chronic fx. Pain Right Knee: Pain Intensity (Out of 10): 2 Pain Intensity Range: 0 and 5 Objective Objective: ROM: WNL except AROM yolis hip ext and L knee ext d/t muscular deficits and chronic L patellar fx, PROM had no limitations MMT: global LE strength 3+/5 except for yolis hip ext 2+/5, L hip ABD 3/5 painful, L knee ext 2+/5 PALPATION: no tenderness, some crepitus in L knee cap with flex/ext GAIT: 1 lap (352') in 3 min with rollator, 2MWT 200ft with rollator SBA, hyperextension of L knee with sustained flexed trunk, felt more stable with rollator and had less back pain compared to gait with walking stick. Pt. was able to ambulate with walking stick ~50 feet, but reports feeling of instability and increased back pain. SQUAT: unilateral UE support, cautious of L knee buckling, slow with very little trunk flex 5x STS 14.37 with no UE support (difficulty to get full trunk extension) BED MOBILITY: Ind, no issues obtaining or maintaining any positions Pt. attempted to complete hip flexor stretch, but L knee become unstable, causing her to lose balance needing to sit to recover. Balance/Special Test Scores Lower Extremity Functional Score: 41 Goals Goal 1:: STG: Pt will be complaint with wearing her L knee brace in community and when walking to improve stability and safety when amb. Goal Time Frame: 2-4 Weeks Goal 2:: STG: Pt will amb. 300' with walking stick and SBA to demonstrate improved balance and muscular endurance needed for functional act Goal Time Frame: 4-6 Weeks Goal 3:: LTG: Pt will amb. 2000' Jamil with walking stick with no LOB to demonstrate improved stamina needed to walk I at the grocery store Goal Time Frame: 8-12 Weeks Goal 4:: LTG: Pt will be able to navigate stairs with unilateral HR and reciprocal pattern to demonstrate improved LE strength and balance needed to navigate in community and family's home Goal Time Frame: 8-12 Weeks Goal 5:: LTG: Pt will score at least 50/80 on LEFS to demonstrate improved mobility and function with ADLs Goal Time Frame: 6-8 Weeks Rehabilitation Potential Physical Therapy Diagnosis: Pt presents with gait and LE strength impairments. Pt would benefit from PT services to address safety and endurance with gait, training with least restrictive AD to improve community mobility when grocery shopping, improving strength to reduce risk of falls, and addressing balance needed for active fall recovery. Rehabilitation Potential: Good Anticipated Interventions Patient/Client Instruction: Educate patient on: Plan of Care For the Purpose of:: To decrease pain, To increase ROM, To improve muscle performance and motor function, To improve ability to perform ADL's, To increase tolerance to activity/condition/position, To improve performance and independence with ADL's, To decrease level of supervision to perform tasks, To improve ability of physical actions for home/community/work/leisure, To improve gait and locomotor functions, To improve endurance, To improve balance, To improve safety with gait, To assume or resume ADL's, To improve safety, To improve health and function, To improve self management, To prevent re-injury, To improve ability to perform tasks related to life management and To improve tolerance to ADL's Therapeutic Exercise to Include: Strength training, Endurance training, Balance training, Postural training, Flexibilty training, Gait and locomotor training and Neuromotor development For the Purpose of:: To decrease pain, To increase ROM, To improve muscle performance and motor function, To improve ability to perform ADL's, To increase tolerance to activity/condition/position, To improve performance and independence with ADL's, To improve ability of physical actions for home/community/work/leisure, To improve gait and locomotor functions, To improve endurance, To improve balance, To improve safety with gait, To assume or resume ADL's, To reduce risk of recurrence, To improve safety, To improve self management, To improve ability to perform tasks related to life management and To improve tolerance to ADL's Manual Therapy Techniques to Include: Soft tissue mobilization For the Purpose of:: To decrease pain, To increase ROM, To decrease soft tissue restriction and To increase flexibility/ROM Assistive Devices: Cane and Wheeled walker Orthotics: Brace For the Purpose of:: To increase tolerance to activity/condition/position, To improve performance and independence with ADL's, To improve gait and locomotor functions, To improve safety with gait, To improve safety and To improve self management TENS: Yes IF ES: Yes Cryotherapy (ice pack, ice massage): Yes Thermo therapy (hot pack): Yes Text: Thank you for the opportunity to evaluate your patient. For Medicare and Medicare HMO plans, please review the plan of care and approve it. It will need to be FAXED BACK to us at [phone] for Medicare purposes. For Medicare only, by signing this I certify the plan of care. Please let me know if there are questions or concerns regarding this plan of care. Physician Signature: Date:
--- NOTE | 2023-08-04 16:08 | HP.PTREVAL_ITS ---
Re-Evaluation Intro: Dr. Mansoor Chavarria, DO, It has been my pleasure to treat TIFFANY YOST over the last 34 visits for Impaired weight bearing and other abnormalities of gait and mobility. Please see the progress note below for an update on the physical therapy plan of care! Subjective Subjective: Pt. reports no major issues since last visit. Objective Objective/Function: TU.9 with rollator, with walking stick 20.21 sec. gait: 351' with walking stick with SBA. sit to stand SANIA without issues. She continues to have difficulty with extensor mechanism of her, resulting in decreased strength and TKE MMT: RLE: knee: ext in mid range 42.2#, ext at end range ext 45.5#, flexion mid range 31.0# LLE: LLE: knee ext in mid range 14.7#, ext and end range ext unable to hold against gravity at full extension. flexion 33.8# 30 sec sit to stand test: 12 6 MWT with rollator 708feet. Pt. is overall improving with her stability with gait both with walking stick and with rollator. She is still limited with her endurance, more so with walking stick comparted to rollator. STAIRS: she can complete with 1 HR and walking stick without issues. She does solely load RLE during LLE extensor mechanism being faulty. I would like to continue to see her to work on stability with gait and progress further distances to increase ease of community ambulation. Plan Plan Plan: I am requesting further visits to work on gait progression and dynamic stability in order to increase safety in community. Balance/Gait/Functional tests Balance/Special Test Scores Lower Extremity Functional Score: 39 TUG Test Time Seconds: 12.9 Tug Test: <20 sec.=mostly independent 30 Second Chair Rise Test Seconds: 12 6 Minute Walk Test: 751feet with rollator Goals Goals Goal 1:: STG: Pt will be complaint with wearing her L knee brace in community and when walking to improve stability and safety when amb. Goal Time Frame: 2-4 Weeks Goal Progress: Goal Met Goal 2:: STG: Pt will amb. 300' with walking stick and SBA to demonstrate improved balance and muscular endurance needed for functional act Goal Time Frame: 4-6 Weeks Goal Progress: Goal Met Goal 3:: LTG: Pt will amb. 2000' Sania with walking stick with no LOB to demonstrate improved stamina needed to walk I at the grocery store Goal Time Frame: 8-12 Weeks Goal Progress: Progressing Goal 4:: LTG: Pt will be able to navigate stairs with unilateral HR and reciprocal pattern to demonstrate improved LE strength and balance needed to navigate in community and family's home Goal Time Frame: 8-12 Weeks Goal Progress: Goal Met Goal 5:: LTG: Pt will score at least 50/80 on LEFS to demonstrate improved mobility and function with ADLs Goal Time Frame: 6-8 Weeks Goal Progress: Progressing Anticipated Interventions Anticipated Interventions Patient/Client Instruction: Educate patient on: Plan of Care For the Purpose of:: To decrease pain, To increase ROM, To improve muscle performance and motor function, To improve ability to perform ADL's, To increase tolerance to activity/condition/position, To improve performance and independence with ADL's, To decrease level of supervision to perform tasks, To improve ability of physical actions for home/community/work/leisure, To improve gait and locomotor functions, To improve endurance, To improve balance, To improve safety with gait, To assume or resume ADL's, To improve safety, To improve health and function, To improve self management, To prevent re-injury, To improve ability to perform tasks related to life management and To improve tolerance to ADL's Therapeutic Exercise to Include: Strength training, Endurance training, Balance training, Postural training, Flexibilty training, Gait and locomotor training and Neuromotor development For the Purpose of:: To decrease pain, To increase ROM, To improve muscle per formance and motor function, To improve ability to perform ADL's, To increase tolerance to activity/condition/position, To improve performance and independence with ADL's, To improve ability of physical actions for home/community/work/leisure, To improve gait and locomotor functions, To improve endurance, To improve balance, To improve safety with gait, To assume or resume ADL's, To reduce risk of recurrence, To improve safety, To improve self management, To improve ability to perform tasks related to life management and To improve tolerance to ADL's Manual Therapy Techniques to Include: Soft tissue mobilization For the Purpose of:: To decrease pain, To increase ROM, To decrease soft tissue restriction and To increase flexibility/ROM Assistive Devices: Cane and Wheeled walker Orthotics: Brace For the Purpose of:: To increase tolerance to activity/condition/position, To improve performance and independence with ADL's, To improve gait and locomotor functions, To improve safety with gait, To improve safety and To improve self management TENS: Yes IF ES: Yes Cryotherapy (ice pack, ice massage): Yes Thermo therapy (hot pack): Yes Re-Evaluation Ending Re-evaluation ending: Please do not hesitate to contact me at [phone] by phone or if you have questions or concerns regarding this new plan of care! Sincerely, MEDHAT JohnsonT
== END 2023-09-29 19:00 | disposition home or self-care (01) ==
LOC: PT 14:00
PROVIDERS: PCP Family Medicine; Referring Provider Family Medicine; Visit Provider Family Medicine
DX: R26.89 Other abnormalities of gait and mobility (principal)
CPT/HCPCS: 97110; 97161; 97530

== ENCOUNTER → 2023-10-10 | Outpatient (CLI) | payer MEDICAID, SELFPAY ==
[2023-10-10 15:48] LABS: T4 Free Direct 1.14 ng/dL (0.76-1.46); Thyroid Stim Hormone (TSH) 0.708 uIU/mL (0.358-3.740)
== END | disposition home or self-care (01) ==
LOC: MTLAB 13:32
PROVIDERS: PCP Family Medicine; Referring Provider Nurse Practitioner; Visit Provider Nurse Practitioner
DX: E03.9 Hypothyroidism, unspecified (principal)
CPT/HCPCS: 36415; 84439; 84443

== ENCOUNTER 2023-11-27 14:00 | Outpatient (RCR) | payer MEDICAID, SELFPAY ==
--- NOTE | 2023-11-24 17:56 | HP.PTDCSUM ---
Discharge Summary D/C summary: It has been my pleasure to treat TIFFANY YOST referred by Dr. Mansoor Chavarria DO, with the diagnosis of debility, L patellar fx for a total of 48 visit(s). Discharge Date: 11/24/23 Please see the following information for a summary of their discharge status. Subjective Subjective: Pt. is here today for her re assessment. Pt. reports beings being 75% better overall. She does report acknowledging that she will have some limitations. Pain R knee: Pain Intensity (Out of 10): 2 Overall Improvement % Improvement: 75 Objective Objective/Function: 30 sec sit to stand rep test: 9 reps without use of UEs. 351' feet with SPC and CGA/SBA. Pt. completed in 4:06. Increased LBP as limiting factor. 14.9sec with SPC: TUG MMT: RLE: knee: ext 42.1#, flexion 42.7#, abd 33.2# LLE: knee ext 23.5#, flexion 37.6#; hip abd 21.9# Pt. is overall doing better, but still has marked limitations. Goals Goal 1:: LTG: pt. to be I with HEP Goal Progress: Progressing Goal 2:: LTG: Pt. to complete TUG with SPC with time less than 20seconds Goal Progress: Goal Met Goal 3:: LTG: Pt. to ambulate 700' with SPC with SANIA. Goal Progress: Progressing Goal 4:: Pt. to have improved FGA to better than 18/30. Goal Progress: Progressing Plan Plan: Pt is overall doing well. This was her last approved visit. She is overall doing well. She continues to have limited L knee strength in mid range and worse at end range extension. Her gait has progressed a lot with stability, but not as much with her distances. She is switching insurances at this point in time. I will DC this chart and ask for further visits D/C Information Discharge Comments: DCing this chart as she is changing insurances at this point in time. d/c sentence: If there are questions or concerns regarding this patient's physical therapy, please feel free to call me at [phone]. Thank you for the referral of this patient. Sincerely, Dejon Mathew Sipos, DPT Balance/Gait/Functional tests Balance/Special Test Scores Lower Extremity Functional Score: 40 Improvement % Improvement: 75
== END 2023-11-27 17:29 | disposition home or self-care (01) ==
LOC: PT 14:00
PROVIDERS: PCP Family Medicine; Referring Provider Family Medicine; Visit Provider Family Medicine
DX: R26.89 Other abnormalities of gait and mobility (principal)
CPT/HCPCS: 97110; 97530

== ENCOUNTER → 2024-01-26 | Outpatient (CLI) | payer MEDICAID, SELFPAY ==
--- NOTE | 2024-01-26 12:59 | VDLE_ITS ---
Reason For Study: Swelling BLE RIGHT LEFT CFV is compressible, spontaneous, phasic, CFV is compressible, spontaneous, phasic, competent and demonstrates normal competent, and demonstrates normal augmentation. augmentation. FV is compressible, spontaneous, phasic, FV is compressible, spontaneous, phasic, competent and demonstrates normal competent and demonstrates normal augmentation. augmentation. POP V is compressible, spontaneous, phasic, POP V is compressible, spontaneous, phasic, competent and demonstrates normal competent and demonstrates normal augmentation. augmentation. T/P Trunk is compressible. T/P Trunk is compressible. PTV is compressible. PTV is compressible. RT PerV is compressible. LT PerV is compressible. SFJ is competent and measures 0.59cm x 0.63 SFJ is competent and measures 0.67cm x 0.61 cm. cm. GSV proximal thigh measures 0.32cm x 0.34 cm. GSV proximal thigh measures 0.60cm x 0.72 cm. GSV at knee measures 0.25cm x 0.29 cm. GSV at knee measures 0.22cm x 0.30 cm. GSV above knee is competent. GSV above knee is INCOMPETENT for greater GSV below knee is INCOMPETENT for greater than 0.5 seconds. than 0.5 seconds. GSV below knee is competent. SSV mid calf is competent and measures 0.30cm SSV mid calf is competent and measures 0.22cm x 0.33 cm. x 0.22 cm. Very difficult to visualize FV distal and Very difficult to visualize FV distal and PeroV. PeroV. Procedure This is a venous duplex using B-mode, color flow and spectral Doppler. Exam performed in department. A preliminary report was called and/or faxed to Claudia CASILLAS. VL/Venous Duplex US - Carlos Extrem Interpretation Summary Deep veins of the bilateral lower extremities are patent and compressible segme ntally. There is no evidence of bilateral lower extremity deep vein thrombosis. The bilateral great saphenous veins appear patent and compressible segmentally. Positive for reflux in the right great saphenous vein below the knee. Positive for reflux in the left great saphenous vein above the knee Ordering Physician: Claudia Vasquez Referring Physician: Mansoor Chavarrai Performed By: Bella Holm, OLY, RVT
== END | disposition home or self-care (01) ==
PROVIDERS: PCP Family Medicine; Referring Provider Physician Assistant; Visit Provider Physician Assistant
DX: S81.802A Unspecified open wound, left lower leg, initial encounter (principal); M79.89 Other specified soft tissue disorders; X58.XXXA Exposure to other specified factors, initial encounter
CPT/HCPCS: 93970

== ENCOUNTER → 2024-03-08 | Outpatient (CLI) | payer BC, SELFPAY ==
--- NOTE | 2024-03-08 12:04 | BI_ITS ---
MAMMOGRAPHY - BILATERAL SCREENING REASON FOR EXAM: Female, 63 years old. Routine annual screening examination. PERTINENT HISTORY: Non-contributory. Remote right excisional breast biopsy. TECHNIQUE: Digital bilateral breast mary (3D mammographic acquisition) in the CC and MLO projections. 2-D mediolateral oblique (MLO) and craniocaudad (CC) views of both breasts were obtained. CAD: Full Field Digital Mammography with Computer Added Detection was performed. COMPARISON: Comparison is made with prior study dated March 06, 2023 and March 05, 2022. FINDINGS: Breast Composition: There are scattered areas of fibroglandular density. There are no dominant masses or suspicious calcifications. Stable focal dense linear calcification in the slightly lateral retroareolar region of the right breast. No other significant abnormalities are identified. There has been no significant change since the prior study. BI/SCRN MAMM (CAD)W/MARY BILAT IMPRESSION: Stable bilateral screening mammogram. Yearly follow-up mammogram recommended. (A) ASSESSMENT CATEGORY: BIRADS Category 2: Benign. A letter regarding these results will be sent to the patient by the facility within 30 days. Approximately 10% of breast cancers are not detected by mammography. A normal mammogram should not delay biopsy of a clinically suspicious abnormality. [id number] Electronically Signed: Edilberto Wright MD at 13:06 EST ,
== END | disposition home or self-care (01) ==
LOC: OPBI 12:04
PROVIDERS: PCP Family Medicine; Referring Provider Physician Assistant; Visit Provider Physician Assistant
DX: Z12.31 Encounter for screening mammogram for malignant neoplasm of breast (principal)
CPT/HCPCS: 77063; 77067

== ENCOUNTER 2024-03-24 06:50 | Day surgery (SDC) | payer OTHER, SELFPAY ==
[2024-03-23 08:36] VITALS: BMI 43.4
[2024-03-24 07:26] LABS: Absolute Lymphocyte Count 2.39 X10^3/uL (0.83-4.51); Absolute Neutrophil Count 7.1 X10^3/uL (2.0-7.7); Basophil# 0.06 X10^3/uL; Basophil% 0.6 % (0-1); Eosinophils% 1.9 % (0-5); Hematocrit 42.9 % (37-47); Hemoglobin 13.9 g/dL (12.0-15.0); Lymphocyte # 2.39 X10^3/ul (0.83-4.51); Lymphocyte % 22.8 % (19-41); Mean Corp Hgb Conc 32.4 g/dL (32-36); Mean Corpuscular Hgb 31.3 pg (27.0-32.0); Mean Corpuscular Volume 96.6 fL (81-99); Mean Platelet Vol. 10.1 fl (6.2-12.0); Monocyte# 0.66 X10^3/uL; Monocyte% 6.3 % (0-10); NRBC Flagged by Analyzer 0 % (0-5); Neutrophil # 7.12 X10^3/uL (2.7-7.7); Neutrophil % 68.1 % (47-70); Platelet Count 225 K/mm3 (150-450); RBC Distribution Width CV 12.3 % (11.6-14.6); RBC Distribution Width SD 43.8 fl (35.1-43.9); Red Blood Count 4.44 M/mm3 (4.2-5.4); White Blood Count 10.5 K/mm3 (4.4-11.0)
[2024-03-24 08:00] LABS: Anion Gap 8 (5-15); BUN 17 mg/dL (7-18); BUN/Creat Ratio 18.1 RATIO (10-20); Calcium,Total 9.8 mg/dL (8.5-10.1); Chloride 102 mmol/L (98-107); Creatinine, Serum 0.94 mg/dL (0.55-1.02); EST Glomerular Filtration Rate 64 mL/min (>60); Est Glom Filt Rate - Afr Amer 78 mL/min (>60); Estimated Creatinine Clearance 85.44 ml/min; Glucose 146 mg/dL (74-106); Potassium 4.1 mmol/L (3.5-5.1); Sodium Level 138 mmol/L (136-145)
--- NOTE | 2024-03-24 08:43 | OP.PCM_ITS ---
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 Prior venous duplex revealed limited reflux. Given left side prominence of symptoms she presents for venogram to assess for central obstruction. Description of procedure: Upon obtaining informed consent, verification correct patient, procedure and site the patient was taken to the paint laboratory technician where she was positioned prepped and draped. Time out was performed and conscious sedation administered with versed and fentanyl. Skin overlying the left common femoral vein was anesthetized with 1% lidocaine and the vessel accessed under ultrasound guidance with micropuncture needle and wire. This was then exchanged for a micropuncture sheath through which hand injection ilio-caval venogram was performed revealing satisfactory position with no extravasation or dissection and patent normal caliber iliac veins and IVC. Through the micropuncture sheath a [place] wire was advanced and the sheath exchanged for a short 8 Fr sheath. Next skin overlying the right common femoral vein was anesthetized with 1% lidocaine and the vessel accessed under ultrasound guidance with a micropuncture needle and wire. This was then exchanged for a micropuncture sheath through which a hand injection ilio-caval venogram was performed revealing satisfactory position with no extravasation or dissection and patent normal caliber iliac veins and IVC. Through the micropuncture sheath a J wire was advanced and the sheath exchanged for a short 8 Fr sheath. Intravascular ultrasound was then advanced through the right femoral sheath and a recorded pullback performed of the IVC, right common iliac vein, right external iliac vein. This revealed 45% compression of the right external iliac vein. The probe was then withdrawn and advanced through the left femoral sheath and recorded pull back performed of the IVC, left common iliac vein, left external iliac vein. This revealed 38% compression of the left common iliac vein. Seeing no lesions that were appropriate for interventions the wires and catheter were withdrawn. The sheaths were then withdrawn and manual pressure held for 10 minutes until hemostasis was obtained. The patient was then taken to the recovery area for bed rest prior to discharge home. Surgical Findings: Right external iliac 45% compression, left common iliac 38% compression Complications Complications: No
== END 2024-03-24 11:00 | disposition home or self-care (01) ==
PROVIDERS: PCP Family Medicine; Referring Provider Surgery Trauma Surgery; Visit Provider Surgery Trauma Surgery
DX: I87.1 Compression of vein (principal); I48.91 Unspecified atrial fibrillation; I87.2 Venous insufficiency (chronic) (peripheral); R60.0 Localized edema; Z79.899 Other long term (current) drug therapy; Z79.890 Hormone replacement therapy; Z79.82 Long term (current) use of aspirin; I10 Essential (primary) hypertension; K21.9 Gastro-esophageal reflux disease without esophagitis; E03.9 Hypothyroidism, unspecified; Z79.01 Long term (current) use of anticoagulants; M79.89 Other specified soft tissue disorders
CPT/HCPCS: 36010; 36415; 37252; 37253; 75825; 76937; 80048; 85025; 86850; 86900; 86901; 99152; 99153; C1753; C1769; C1894; Q9967

== ENCOUNTER 2024-04-28 17:00 | Outpatient (RCR) | payer MEDICAID, OTHER, SELFPAY ==
--- NOTE | 2023-12-02 10:03 | HP.PTEVAL_ITS ---
Patient's Visit Information Visit Information Visit Information: TIFFANY YOST is a 63 year old F referred to Physical Therapy by Dr. Mansoor Chavarria DO with a diagnosis of Lymphedema. Date of Evaluation: 11/27/23 Physical Therapist: Dejon Ma DPT Visit Plan Frequency: 2x /Week Duration: 6 Weeks Plan: 1) Gym exercise progression, she will be limited with knee extension on LLE but okay to progress. 2) gait progression with SPC working on be able to ambulate over longer distances. Subjective Subjective: Pt. is here today for her initial evaluation with diagnosis of lymphedema. Pt. reports she has increased difficulty with gait as her main issue. Pt. is known to this PT. Pt. has had multiple surgeries on her LLE including femur ORIF, L total knee arthroplasty. After her TKA she fell resulting in a patellar fracture. This had been advised to not be operable and to work on her strengthening. She reports not having full active knee extension and her knee does give out on her if she does not pay attention. Pt. ambulates mostly with a rollator, but has walking a little bit with SPC. She does use a manual WC at times as well. Pt. denies N/T in either LE. Pt. reports trying to walk every other day with her friend. Pt. also reports having some LBP and R shoulder pain at times. Pain L knee: Pain Intensity (Out of 10): 0 Pain Intensity Range: 0 R knee: Pain Intensity (Out of 10): 1 Pain Intensity Range: 0 and 3 Objective Objective: POSTURE: Pt. has a flexed posture in stance. Pt. has L knee hyper extension in stance, uses AD for stability. Increased trunk flexion during stance without balance aide. PALPATION: Pt. has no pain with palpation of LLE. She does have marked edema in BLEs, L slightly worse than R. NEURO: Pt. has normal sensation in BLEs. Pt. has normal achilles DTR, decreased patellar DTR on L side. Pt. is able to rise on heels and toes, but requires balance aide. ROM: Pt. has good ROM of B knees. LUMBAR SPINE: flexion min loss NE, ext mod loss tightness noted, SB min loss NE, rotation mod loss NE bilat. Pt. has good HS length, tightness noted in B hip flexors. MMT: RLE: ankle 5/5 throughout; knee: ext 41.3#, flexion 29.8#; hip: flexion 33.9#, abd 31.1#, ext 12.3# LLE: ankle 5/5 throughout; knee ext 21.# in mid range (unable to hold TKE), flexion 25.3#; hip: flexion 21.3#, and 28.3#, ext 11.9#. Core strength: fair+, lumbar ext poor+ GAIT: pt. ambulated with rollator 621' with BECKA. Pt. then ambulated 1x350' with 2 standing rest periods with SPC and INDUSTRIAL MACHINE OPERATOR. TU.1 with rollator, 14.1 with SPC. Balance/Special Test Scores Lower Extremity Functional Score: 29 Goals Goal 1:: LTG: Pt. to be I with gym exercises to increase BLE/core strength. Goal Time Frame: 4-6 Weeks Goal 2:: LTG: Pt. to have symmetrical BLE strength to increase stability with all functional mobility and gait. Goal Time Frame: 4-6 Weeks Goal 3:: LTG: Pt. to complete TUG with SPC in less than 10seconds indicating increased overall stability. Goal Time Frame: 4-6 Weeks Goal 4:: LTG: Pt. to be able to ambulate 1000' with SPC with BECKA without LOB allowing her to ambulate in community with increased stability/safety. Goal Time Frame: 4-6 Weeks Rehabilitation Potential Physical Therapy Diagnosis: Pt. has signs and symptoms consistent with Lymphedema in her LEs, but functionally she is having more difficulty with her gait and stability. She would benefit from PT to work on LE strengthening, stability with gait and walking endurance. Rehabilitation Potential: Good Anticipated Interventions Patient/Client Instruction: Educate patient on: Condition, Plan of Care, Risk Factors and Benefits of Fitness Program For the Purpose of:: To improve decision making, To facilitate caregiver knowledge, To improve self management, To prevent re-injury and To improve ability to perform tasks related to life management Therapeutic Exercise to Include: Strength training, Power training, Balance training, Coordination, Body mechanics, Flexibilty training and Gait and locomotor training For the Purpose of:: To decrease swelling/inflammation, To increase ROM, To improve nutrient delivery to tissue, To increase oxygenation perfusion, To improve muscle performance and motor function, To improve ability to perform ADL's, To increase tolerance to activity/condition/position, To improve performance and independence with ADL's, To improve gait and locomotor functions, To improve health of tissue, To decrease soft tissue restriction and To increase flexibility/ROM Text: Thank you for the opportunity to evaluate your patient. For Medicare and Medicare HMO plans, please review the plan of care and approve it. It will need to be FAXED BACK to us at [phone] for Medicare purposes. For Medicare only, by signing this I certify the plan of care. Please let me know if there are questions or concerns regarding this plan of care. Physician Signature: Date:
--- NOTE | 2024-02-05 12:48 | HP.PTREVAL_ITS ---
Re-Evaluation Intro: Dr. Mansoor Chavarria, DO, It has been my pleasure to treat TIFFANY YOST over the last 12 visits for Lymphedema. Please see the progress note below for an update on the physical therapy plan of care! Subjective Subjective: Pt. reports overall being 50% better overall. Pt. reports no pain in either LE, but did take acetaminophen. Pt. 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 Pt. reports seeing ortho as well. Given option of injections, fernandes lutherery, no nothing. Pt. desires focus on conservative care at this point in time for her RLE. Pt. did have a lot of back pain last visit, but was due to lifting furniture at home Objective Objective/Function: TUGL 13.2sec with rollator. 17.3sec with SPC. Pt. ambulated 441feet without rest period, but ambulated 745feet with 1 rest period. MMT: RLE; knee: ext 44.1#, flex 38.3#; hip: flexion 45.8#, abd 47.7# LLE: knee: ext 18.7#, flex 42.8#; hip: flexion 32.3#, abd 40.4# Pt. has ~35deg extensor lag with SLR on LLE Pt. has decent ambulation with SPC, but does have increased lateral sway. Her LLE tends to hyper extend in stance phase of gait, but is overall better than previously. She has very limited knee extension strength at end range due to her extensor mechanism being altered with her previous patellar fx. Plan Plan Plan: I am asking for further visits working on progressive I HEP in gym. pt. plans to join after. Progress distances with gait. May have to use rollator has safest mode with winter weather coming. Balance/Gait/Functional tests Balance/Special Test Scores Lower Extremity Functional Score: 42 TUG Test Time Seconds: 17.3 Tug Test: <20 sec.=mostly independent 30 Second Chair Rise Test Seconds: 16 Goals Goals Goal 1:: LTG: Pt. to be I with gym exercises to increase BLE/core strength. Goal Time Frame: 4-6 Weeks Goal Progress: Progressing Goal 2:: LTG: Pt. to have symmetrical BLE strength to increase stability with all functional mobility and gait. Goal Time Frame: 6-8 Weeks Goal Progress: Progressing Goal 3:: LTG: Pt. to complete TUG with SPC in less than 10seconds indicating increased overall stability. Goal Time Frame: 4-6 Weeks Goal Progress: Progressing Goal 4:: LTG: Pt. to be able to ambulate 1000' with SPC with BECKA without LOB allowing her to ambulate in community with increased stability/safety. Goal Time Frame: 4-6 Weeks Goal Progress: Progressing Anticipated Interventions Anticipated Interventions Patient/Client Instruction: Educate patient on: Condition, Plan of Care, Risk Factors and Benefits of Fitness Program For the Purpose of:: To improve decision making, To facilitate caregiver knowledge, To improve self management, To prevent re-injury and To improve ability to perform tasks related to life management Therapeutic Exercise to Include: Strength training, Power training, Balance training, Coordination, Body mechanics, Flexibilty training and Gait and locomotor training For the Purpose of:: To decrease swelling/inflammation, To increase ROM, To improve nutrient delivery to tissue, To increase oxygenation perfusion, To improve muscle performance and motor function, To improve ability to perform ADL's, To increase tolerance to activity/condition/position, To improve performance and independence with ADL's, To improve gait and locomotor functions, To improve health of tissue, To decrease soft tissue restriction and To increase flexibility/ROM Re-Evaluation Ending Re-evaluation ending: Please do not hesitate to contact me at [phone] by phone or if you have questions or concerns regarding this new plan of care! Sincerely, Dejon Ma DPT
== END 2024-04-28 19:00 | disposition home or self-care (01) ==
LOC: PT 17:00
PROVIDERS: PCP Family Medicine; Referring Provider Family Medicine; Visit Provider Family Medicine
DX: R26.81 Unsteadiness on feet (principal)
CPT/HCPCS: 97110; 97161; 97530

== ENCOUNTER 2024-06-09 11:01 | Observation (INO) | payer BC, SELFPAY ==
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
[2024-06-09] VITALS (13 sets, daily range): BP systolic 81–131; BP diastolic 51–88; PULSE 66–80; RESP 16–20; TEMP 36.1–37.2; O2SAT 92–98; BMI 42.5
[2024-06-09] MEDS: 0.9% Normal Saline (1000mL) 1,000 ML 15 ML IV ×2 (06:12→10:25)
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
[2024-06-09] MEDS: Clindamycin 900 MG/50 ML BAG 75 MG IV (07:45)
[2024-06-09] MEDS: Lidocaine 1% /Epi 1:100 (20ml) 20 ML Vial (08:02)
[2024-06-09] MEDS: TAS 0.05% 1000 mls w/ LR OPERA.SITE (08:03)
--- NOTE | 2024-06-09 09:30 | PCM.POST.ANE ---
Anesthesia: Postop Eval I Current Vital Signs Temperature: 97 F Pulse Rate: 76 Blood Pressure: 89/66 Respiratory Rate: 16 Pulse Ox: 94 Oxygen Delivery Method: Room Air Assessment Airway patent: Yes Spontaneous unlabored respirations: Yes Mental status: Awake and Calm nausea: No Vomiting: No Anesthesia Complication: No Fluid Hydration Crystalloid volume administer (ml): 1,200 Total IV fluid infused: 1,200 Progress Note Anesthesia document: Postop Eval 1 completed: Yes
--- NOTE | 2024-06-09 09:47 | POSTOPAN2_ITS ---
Anesthesia Postop Eval I Sum Postop Eval Completion status Anesthesia document: Postop Eval 1 completed: Yes Anesthesia Postop Eval I Summary Anesthesia Postop Eval I Summary: Anesthesia Postop Eval I: Assessment Summary Airway patent Yes 06/09/24 09:46 [email or web address] Spontaneous unlabored Yes 06/09/24 09:46 [email or web address] respirations Mental status Awake,Calm 06/09/24 09:46 [email or web address] nausea No 06/09/24 09:46 [email or web address] CONSULTANT.GDOTT Vomiting No 06/09/24 09:46 [email or web address] [email or web address].GDOTT Anesthesia Postop Eval I: Fluid Summary Crystalloid volume administer 1,200 06/09/24 09:46 [email or web address] [email or web address] (ml) Colloids volume administered ( ml) Blood Product volume administered (ml) Total IV fluid infused 1,200 06/09/24 09:46 COGNOS CONSULTANT.GDOTT Anesthesia Postop Eval I: Summary Notes Anesthesia Complication No 06/09/24 09:46 [email or web address] [email or web address].GDOTT Anesthesia Complication Comment: Post-operative progress note Anesthesia: Postop Eval II Evaluation Mental status: Awake Pain Level: 0 nausea: No Vomiting: No
--- NOTE | 2024-06-09 09:47 | PCM.POSTANE2 ---
Anesthesia Postop Eval I Sum Postop Eval Completion status Anesthesia document: Postop Eval 1 completed: Yes Anesthesia Postop Eval I Summary Anesthesia Postop Eval I Summary: Anesthesia Postop Eval I: Assessment Summary Airway patent Yes 06/09/24 09:46 [email or web address] Spontaneous unlabored Yes 06/09/24 09:46 [email or web address] respirations Mental status Awake,Calm 06/09/24 09:46 [email or web address] nausea No 06/09/24 09:46 [email or web address] Vomiting No 06/09/24 09:46 [email or web address] Anesthesia Postop Eval I: Fluid Summary Crystalloid volume administer 1,200 06/09/24 09:46 [email or web address] (ml) Colloids volume administered ( ml) Blood Product volume administered (ml) Total IV fluid infused 1,200 06/09/24 09:46 [email or web address] Anesthesia Postop Eval I: Summary Notes Anesthesia Complication No 06/09/24 09:46 [email or web address] Anesthesia Complication Comment: Post-operative progress note Anesthesia: Postop Eval II Evaluation Mental status: Awake Pain Level: 0 nausea: No Vomiting: No
--- NOTE | 2024-06-09 10:09 | OP.PCM_ITS ---
Operative Report (Standard) Operative Information Date of Procedure: 06/09/24 Pre-Operative Diagnosis: Left lower extremity lipedema Post-Operative Diagnosis: Same Surgery/Procedure Performed: 1) Suction-assisted lipectomy, left lower extremity (CPT: 14904) garment sewing machine operator: Yes Machine Milker: Jessica Garcia Tasks completed by assistant director of admissions: Retracting Type of Anesthesia: MAC/Supplemental (2 liters of tumescent solution (1 Liter of LR mixed with 1 mg of epinephrine and 50 cc of 1% lidocaine) ) RN Documented Start/Stop Times: Operation Date: 06/09/24 07:30 Case Time Into Pre-Op 06/09/24 05:57 Out of Pre-Op 06/09/24 07:37 Anesthesia Start 06/09/24 07:40 Into Room 06/09/24 07:40 Procedure Start 06/09/24 08:02 Procedure End 06/09/24 09:16 Anesthesia End 06/09/24 09:20 Out of Room 06/09/24 09:20 Into Recovery 06/09/24 09:24 Procedure Start Time: 08:02 Procedure Stop Time: 09:16 Select all DRAINS/GRAFTS/IMPLANTS that apply: None Estimated Blood Loss: 50 cc Fluids Replaced: 2 L Specimen collected: No Description of surgery: Indications: Marva Fu is a delightful 63-year-old female with lower extremity lipedema. She presents for suction assisted lipectomy. I talked her about the risks, benefits, and alternatives to the procedure. We discussed the risk of contour abnormalities. We discussed the risks of failure to obtain the desired result and need for repeat surgery. We talked about doing 1 limited time (left lower extremity today). We also talked about wound healing complications and bleeding, as well as damage to surrounding structures. She elected to proceed. She was marked in preoperative holding. Procedure details: Patient was correct identified in preoperative holding and taken back to the operating room where she was administered sedation and 2 L of the above-noted tumescent solution. She was prepped and draped in sterile fashion and all proper timeouts were performed. After waiting 20 minutes for the tumescent solution to take effect, several stab incisions were made with an 11 blade (using 8 cc of 1% lidocaine total) and we began by pretunneling with separation using the basket cannula. We then performed suction assisted lipectomy with a 5 mm Priya cannula. Care was taken to stay in the subcutaneous plane and within the areas of fat that were marked in preoperative holding for removal. The basket cannula was then again used for fat evening to complete the separation, aspiration, and fat evening technique (SAFE technique) to prevent excessive contour irregularities. The wounds were then closed with 5-0 Prolene interrupted sutures. The leg was then wrapped with Kerlix, Saamn from the toes to the upper thigh. The patient tolerated the procedure well and was awakened and taken to the PACU in stable condition. Surgical Findings: 1.75 L of Lipo aspirate from the left thigh and upper leg Complications Complications: No Admit VTE Documentation VTE Mechan Device Prophylaxis: SCD's (On the right leg)
--- NOTE | 2024-06-09 15:40 | WOUNDNOTE ---
Pt had been up walking in the halls. after walking, nurse noticed some bleeding through the KALA wrap. this nurse in to assess. there was a moderate amount of drainage noted around the medial knee/thigh area. removed the KALA wraps and dressings to assess. small amount of oozing noted from the left distal thigh near the crease of the knee. all other areas appear dry. placed ABD pads to the suture sites and wrapped the leg with kerlix. applied new KALA wraps from the base of the toes to the upper thigh. pt tolerated well. sent text to Dr Colorado to update him. DANAY Castillo aware.
[2024-06-09] MEDS: buPROPion 75 MG Tablet PO (22:41)
[2024-06-09] MEDS: Acetaminophen 325 MG Tablet 650 MG PO (22:41)
[2024-06-10 06:18] VITALS: BP 128/77; PULSE 84; RESP 18; TEMP 36.5; O2SAT 93
[2024-06-10] MEDS: Levothyroxine 100 MCG Tablet 200 MCG PO (06:24)
[2024-06-10] MEDS: oxyCODONE 5 MG Tablet PO (06:24)
[2024-06-10] MEDS: Acetaminophen 325 MG Tablet 650 MG PO ×2 (06:24→10:47)
[2024-06-10] MEDS: Levothyroxine 50 MCG Tablet PO (06:25)
[2024-06-10 08:25] VITALS: BP 117/66; PULSE 77; RESP 18; TEMP 36.8; O2SAT 94
[2024-06-10 08:29] VITALS: PULSE 77
[2024-06-10] MEDS: buPROPion 75 MG Tablet PO (08:29)
[2024-06-10] MEDS: Loratadine 10 MG Tablet PO (08:29)
[2024-06-10] MEDS: Metoprolol(XL)Succ 50 MG Tablet PO (08:29)
--- NOTE | 2024-06-10 08:39 | PCM.PN.SRG ---
Subjective Subjective Doing well overall postop day 1. Pain is controlled. Patient has been walking with nursing staff Objective Data Objective Data Vital Signs: Vital Signs Temp Pulse Resp BP Pulse Ox O2 Del Method O2 Flow Rate 98.2 F 77 18 117/66 94 Room Air 2 06/10/24 08:25 06/10/24 08:29 06/10/24 08:25 06/10/24 08:25 06/10/24 08:25 06/10/24 08:06/09/24 10:00 Oxygen Flow Rate (L/min) 2 Oxygen Delivery Method Room Air Weight: 271 lb 2.697 oz Body Mass Index (BMI) 42.5 Intake & Output: Intake and Output for Last 24 Hours 06/08/24 06/09/24 06/10/24 23:59 23:59 23:59 Intake Total 1050 / 1050 Balance 1050 / 1050 Physical Exam Narrative Lower extremities: Right lower extremity without any signs of swelling and with SCD in place Left lower extremity: Wraps removed. Foot is warm well-perfused. Minimal bruising with clean dry and intact liposuction stab incisions. Left lower extremity is soft. Normal active range of motion. Const oriented x3 Resp Auscultation: clear to auscultation bilaterally Assessment & Plan Assessment/Plan (1) Lipedema of lower extremity: PLAN: Expected course Rewrapped today on rounds Patient will go home and use fitted compression garments after she removes Saman wrap tomorrow and showers. Patient happy with the plan. She will continue to walk and will start her Xarelto 10 mg p.o. nightly starting at 6 PM tonight for 10 days Follow-up in clinic next week Charges/Coding Procedures Integumentary [id number]: [id number] Global Visit
--- NOTE | 2024-06-10 08:41 | WOUNDNOTE ---
In to see patient with Dr Colorado this am. removed the ACEv wraps and dressings. small amount of drainage noted. there is some mild irritation to the upper thigh from the KALA wrap. Dr Colorado reapplied the dressing and KALA wrap. did not apply thr KALA wrap as high up the thigh to avoid the irritated areas of the thigh. Pt to be discharged home later this morning. has been ambulating well.
--- NOTE | 2024-06-10 10:34 | CASEMGMT ---
DANAY CM into pt room, pt sitting up in chair. No PT recommended. Pt states she has a cpap, walker, rollator, w/c, shower bench, toilet side rails at home. Pt states she has the 10 days worth of xarelto that was given to her from Dr. Triana's office as samples. Pt denies any homegoing needs at this time.
--- NOTE | 2024-06-10 14:13 | PHA.DC.MC.R ---
Pharmacy [facility] has performed discharge medication reconciliation and counseling for this patient. The patient's discharge medication list was reviewed for discrepancies and discrepancies were resolved. The patient was counseled on the following discharge medications and changes in medications for homegoing were reviewed. 1. OXYCODONE The Reason for Use, instructions for use, and potential side effects were reviewed for all new medications. The patient's questions regarding all of their medications were answered. The patient was able to verbally demonstrate an understanding of their discharge medications. Medications at Discharge Home Medications multivitamin 1 ea PO DAILY supplement ##0 06/12/17 omega-3 fatty acids 1,000 mg capsule (Fish Oil Concentrate) 1,000 mg PO DAILY SUPPLEMENT 02/23/20 B-complex with vitamin C (Super B Complex-Vitamin C tablet) 1 tab PO DAILY SUPPLEMENT 09/06/20 circaid #2 ea 07/06/21 handicap placard #1 ea 04/02/22 calcium 333 mg (carbonate)-magnesium 133 mg (oxide)-zinc 5 mg tablet 1 tab PO DAILY SUPPLEMENT 12/30/23 aspirin 81 mg chewable tablet 2 tab PO DAILY HEART HEALTH #180 TABLETS 01/27/24 cholecalciferol (vitamin D3) 50 mcg (2,000 unit) capsule 50 mcg PO DAILY SUPPLEMENT #90 caps 03/23/24 atorvastatin 20 mg tablet 20 mg PO QHS CHOLESTEROL #90 tabs 03/26/24 loratadine 10 mg tablet 10 mg PO DAILY ALLERGIES #30 tabs 04/20/24 metoprolol succinate 50 mg tablet,extended release 24 hr 50 mg PO DAILY BP #90 tabs 04/27/24 bupropion HCl 75 mg tablet 75 mg PO BID depression #180 tabs 05/06/24 famotidine 20 mg tablet 20 mg PO BID GERD 05/28/24 levothyroxine 50 mcg tablet 250 mcg PO SUMOTUWETHFR THYROID 05/28/24 levothyroxine 200 mcg tablet 200 mcg PO SUMOTUWETHFRSA THYROID #90 tabs 06/04/24 doxycycline hyclate 100 mg tablet 100 mg PO DAILY 06/09/24 oxycodone 5 mg tablet 5 mg PO BID PRN pain 5 days #10 tabs 06/09/24
== END 2024-06-10 11:45 | disposition home or self-care (01) ==
LOC: SDC 11:21 → MS3 11:21
PROVIDERS: Admitting Provider Surgery Plastic and Reconstructive Surgery; PCP Family Medicine; Referring Provider Surgery Plastic and Reconstructive Surgery; Visit Provider Surgery Plastic and Reconstructive Surgery
PROC: (CPT 15879; principal; 2024-06-09 07:15)
DX: I89.0 Lymphedema, not elsewhere classified (principal); I10 Essential (primary) hypertension; R60.9 Edema, unspecified; E78.00 Pure hypercholesterolemia, unspecified; Z79.82 Long term (current) use of aspirin; M25.562 Pain in left knee; K21.9 Gastro-esophageal reflux disease without esophagitis; Z79.890 Hormone replacement therapy; Z86.73 Personal history of transient ischemic attack (TIA), and cerebral infarction without residual deficits; Z87.891 Personal history of nicotine dependence; Z96.652 Presence of left artificial knee joint
CPT/HCPCS: 15879; 00400; 97161; 99221; G0378; J2405

== ENCOUNTER 2024-08-30 12:30 | Outpatient (RCR) | payer BC, SELFPAY ==
--- NOTE | 2024-06-18 12:18 | HP.OTEVAL ---
Patient's Visit Information Visit Information Visit Information: TIFFANY YOST is a 63 year old F, referred to Occupational Therapy by Dr. Kory Colorado MD, with a diagnosis of edema. Date of Evaluation: 06/18/24 Occupational Therapist: MATTHEW Galicia/[place], CHT Subjective Subjective: This 63 year old female was seen for OT eval with dx of lipedema of left LE. Pt is known to this therapist as she has been seen in the past- pt arrives 1 week and 2 days following liposuction sx to decrease limb size in hopes to improve pts safe ambulation. Today pt demo with left LE wrapped with nagi wraps. Pt states last night her leg did become very painful. pt states she has been in and out of Physical therapy to improve her balance and ambulation. 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 pt states she has not had much time off from work since her sx. Pain left: Current Pain Intensity: 0 Pain Intensity Range: 2 and 4 Lymphedema (Circumferential Measure) Mid-foot: right 26 cm left 25cm Ankle: right 26cm left 31cm Lower calf: right 30cm left 41cm Largest calf: right 42cm left 47cm Below knee: right 41cm left 44cm Above knee: right 57c left 44cm Mid-thigh: right 62cm left 74cm Groin: right 64cm left 74cm Lower Exremity Comments: pt demo with blister on inner thigh (possible form rubbing of wrap) skin red and irritated at mid thing where wrap rolled down and accumulated Goals Goal: Patient will demonstrate a 20% reduction in edema by discharge: Yes Goal: Patient will demonstrate adequate knowledge of self-bandaging by the end of the first week.: Yes Goal: Patient will demonstrate adequate knowledge of self-massage by the end of the second week.: Yes Goal: Patient will demonstrate adequate knowledge of skin care and precautions by the end of the first week.: Yes Goal: Patient will demonstrate adequate knowledge of therapeutic exercises by discharge.: Yes Goal: Patient will voice understanding of need to replace compression garment every four to six months by discharge.: Yes Rehabilitation General Assessment: pt arrives 1 week and 2 days following liposuction to decrease limb size to increase pts safe ambulation. pt arrives with nagi wraps with noted contours of wrap due to wrap rolling- pt demo one lower area with seeping (left outer side of lower calf (incision area) pt left feels warm but no sig. difference from right leg- therapist reviewed symptoms of infection with pt, pt demo understanding. pt demo need for skilled OT services 2x week for 4 weeks to assist pt in mtg. LE swelling to improve safe ambulation. Today pt was ed. to use her Velcro closure compression garment (thigh high)- ed. make adj. if it rolls to avoid garment cutting into her skin. therapist advised wearing under garment of her michael compression and he sock under the garment to protect her skin from friction the Velcro closure device with cause while up and walking. Pt advised to make sure she was wrapped with compression 23 hrs - allow for removal for shower only and wraps back on within 45 min or less. Pt demo understanding. As pt has been using compression garments for over 2 years. Pt has velcro closure compression garments and continues to demo with increase in limb size. Pt would benefit from compression pump to assist pt in lifelong mtg. of her lymphedema. Rehabilitation Potential: Good Anticipated Interventions Anticipated Interventions: A/AAROM/PROM, Education re assistive Equipment, Education re Diagnosis, Education re Life-long lymphedema Management, Education re Self-Bandaging Techniques, Education re Skin Care and Precautions, Education re Self Massage Techniques, Education re Correct Donning Tech,Care&Wearing Sched Comp Garments and Home Program Visit Plan Frequency: 2-3x /Week Duration: 4 Weeks General Plan: use of wraps/ Velcro compression alternatives to decrease limb size followed with fitting of compression garments Get pt pneumatic pump for home use. TEXT: Thank you for the opportunity to evaluate your patient. For Medicare and Medicare HMO plans, please review the plan of care and approve it. It will need to be FAXED BACK to us at [phone] for Medicare purposes. Please let me know if there are questions or concerns regarding this plan of care. Physician Signature: Date:
--- NOTE | 2024-08-30 13:45 | HP.OTDCSUM ---
Discharge Summary D/C Summary: It has been my pleasure to treat TIFFANY YOST under orders from Dr. Kory Colorado MD, for the diagnosis of edema for a total of 6 visit(s). Please see the following information for a summary of their discharge status. Overall Improvement % Improvement: 90 Objective Objective/Function: pt has recived her compression pump hand feels she can walk better. will get new compression socks as the pair she is wearing has holes in them. pt reports she has better understanding of mtg. her dx. and agrees to d/c. Goals Patient Goals: Decrease Swelling/Stiffness, Learn how to Manage Lymphedema and Learn how to Apply Compression Stockings Goal: Patient will demonstrate a 20% reduction in edema by discharge: Yes Goal: Patient will demonstrate adequate knowledge of self-bandaging by the end of the first week.: Yes Goal Progress: Goal Met Goal: Patient will demonstrate adequate knowledge of self-massage by the end of the second week.: Yes Goal Progress: Goal Met Goal: Patient will demonstrate adequate knowledge of skin care and precautions by the end of the first week.: Yes Goal Progress: Goal Met Goal: Patient will demonstrate adequate knowledge of therapeutic exercises by discharge.: Yes Goal Progress: Goal Met Goal: Patient will voice understanding of need to replace compression garment every four to six months by discharge.: Yes Plan Plan: will work with pt in getting compression pump for increase self-management of her lymphedema/lipedema dx/ D/C Information Discharge Comments: pt agrees with d/c. d/c sentence: If there are questions or concerns regarding this patient's occupational therapy, please fell free to call me at [phone]. Thank you for the referral of this patient. Sincerely, Gina Clay, OTR/L, CHT
== END 2024-08-30 19:00 | disposition home or self-care (01) ==
LOC: OT 12:30
PROVIDERS: PCP Family Medicine; Referring Provider Surgery Plastic and Reconstructive Surgery; Visit Provider Surgery Plastic and Reconstructive Surgery
DX: R60.0 Localized edema (principal)
CPT/HCPCS: 97166; 97530

== ENCOUNTER → 2024-10-29 | Outpatient (CLI) | payer BC, SELFPAY | END | disposition home or self-care (01) | LOC: MTLAB 11:30 | PROVIDERS: PCP Family Medicine; Referring Provider Family Medicine; Visit Provider Family Medicine | DX: E03.9 Hypothyroidism, unspecified (principal) | CPT/HCPCS: 36415; 84443 ==

== ENCOUNTER → 2025-01-05 | Outpatient (CLI) | payer BC, SELFPAY | END | disposition home or self-care (01) | LOC: MTLAB 14:22 | PROVIDERS: PCP Family Medicine; Referring Provider Family Medicine; Visit Provider Family Medicine | DX: E03.9 Hypothyroidism, unspecified (principal) | CPT/HCPCS: 36415; 84439; 84443 ==